=== PATIENT | male | born 1980 | race Caucasian/White ===

== ENCOUNTER 2019-07-20 16:53 | Emergency (ER) | payer MEDICAID, SELFPAY ==
[2019-07-20 17:00] VITALS: BP 158/118; RESP 20; TEMP 36.8; O2SAT 98; BMI 28.8
--- NOTE | 2019-07-20 17:09 | PC.NURSE ---
Patient to treatment room.
--- NOTE | 2019-07-20 17:10 | ED_ITS ---
Entered by Catherine Samuel, acting as scribe for Jul 20, 2019 16:53 HPI - Seizure General: Chief Complaint: Seizure Stated Complaint: needs seizure meds Time Seen by Provider: 07/20/19 17:10 Source: patient Mode of arrival: ambulatory Limitations: no limitations History of Present Illness: HPI Narrative: 38 yo Male presents to ED with complaint of seizure. Pt states that he has been out of his Keppra for 5 days. Pt states that he was getting a pizza across the parking lot when he went out . Pt's family member states that the patient was out for about 1 minute but it took him a bit to come back around. Pt states that he threw up when he got to the ED. Pt is requesting to have prescriptions for his home meds for a few days so that he will have them until he can get home. complaint: seizure Onset (ago): hour(s) (Just prior to arrival) Description of Episode: loss of consciousness Duration of episode: 1 -: minutes(s) Witnessed: Yes - by Bystander Trauma: No Seizure History: Yes Place: Outdoors Possible Precipitating Event: medication (unable to get home to his medications) Associated symptoms: Reports confusion Treatments prior to arrival: none Review of Systems General: Reports: 10 or more systems reviewed and unremarkable except in HPI and below Neuro: Reports: confusion and seizure-like activity PFS ED PFSH: Statuses (acute, chronic, etc) shown below reflect problem list status as previously entered and may not be historically accurate Medical History (Updated 07/20/19 @ 17:52 by Nilson Sims MD, [facility] [place] Alcoholism (Acute) Anxiety (Acute) Bipolar disorder (Acute) Chronic back pain (Acute) Depression (Acute) GI bleed (Acute) Hepatitis (Acute) IBS (irritable bowel syndrome) (Acute) Intermittent explosive disorder (Acute) PTSD (post-traumatic stress disorder) (Acute) Rectal bleed (Acute) Seizure disorder (Acute) Substance abuse (Acute) Suicidal ideation (Acute) Suicide attempt (Acute) Surgical History (Updated 07/20/19 @ 17:16 by Catherine Samuel) History of back surgery (Acute) Social History Smoking and tobacco status: current every day smoker Physical Exam Const: COMMON NORMALS: no apparent distress, average body habitus, oriented x3, no limitations, healthy appearing, alert and well nourished HENMT: COMMON NORMALS: normocephalic, head/scalp atraumatic, hearing grossly normal bilaterally, external ears normal, EAC's normal, TM's normal bilaterally, external nose normal, nasal mucous membranes and turbinates normal, moist oral mucous membranes, oropharynx normal, dentition normal and gingiva normal HEAD & SCALP: normocephalic and atraumatic NOSE: external nose normal and nasal mucous membranes and turbinates normal EXTERNAL EAR: Yes external ears normal EXTERNAL AUDITORY CANAL: EAC's normal TYMPANIC MEMBRANE: TM's normal bilaterally Eye: COMMON NORMALS: PERRL, EOMs intact bilaterally, conjunctivae normal, no scleral icterus, no papilledema, normal visual [place] by confrontation and fundi normal bilaterally CONJUNCTIVA: Yes conjunctivae normal PUPIL: Yes PERRL DIRECT OPHTHALMOSCOPY: Yes no papilledema and Yes fundi normal bilaterally Neck/C-Spine: COMMON NORMALS: full ROM, supple, no meningeal signs, no JVD and no carotid bruits Chest: COMMONS NORMALS: inspection of chest normal and palpation of chest normal Resp: COMMON NORMALS: normal respiratory effort, no retractions, no use of accessory muscles, clear to auscultation bilaterally and percussion normal AUSCULTATION: clear to auscultation bilaterally PERCUSSION: percussion normal Cardio: COMMON NORMALS: no JVD, regular rate, regular rhythm, S1 normal heart sound, S2 normal heart sound, no gallops, no clicks, no murmurs, no rub and peripheral pulses 2+ throughout RATE: regular rate RHYTHM: regular rhythm HEART SOUNDS: S1 normal and S2 normal PERIPHERAL PULSES: pulses 2+ throughout GI: COMMON NORMALS: normal to inspection, nondistended, normoactive bowel sounds, soft to palpation, non-tender, no hepatosplenomegaly, no masses and no bruits PALPATION: Yes soft and Yes no hepatosplenomegaly : COMMON NORMALS: Yes no CVA tenderness BLADDER/KIDNEY EXAM: Yes no CVA tenderness Back/Pelvis: COMMON NORMALS: no CVA tenderness Extremity: COMMON NORMALS: normal to inspection, full ROM, normal capillary refill, no joint enlargement, no clubbing, cyanosis or edema, no calf tenderness and no pedal edema Neuro: COMMON NORMALS: oriented x3 SENSORIUM/ORIENTATION: Yes alert MENINGEAL SIGNS: Yes no meningeal signs Skin: COMMON NORMALS: no rashes or lesions noted, no wounds, skin turgor normal, no jaundice, no petechiae and no mottling GENERAL SKIN EXAM: no rashes or lesions noted and turgor normal Course Vital Signs: Vital signs: Vital Signs Temperature 98.2 F 07/20/19 17:00 Respiratory Rate 20 H 07/20/19 17:00 Blood Pressure 158/118 07/20/19 17:00 Pulse Oximetry 98 07/20/19 17:00 MDM - Seizure MDM Narrative: Medical decision making narrative: 38-year-old male patient with a history of seizures who has been out of his antiepileptic, Keppra, for 5 days. Today while getting the pizza he had a generalized tonic-clonic seizure and was postictal. The patient is back to his baseline now. I refilled his medications and discharge him home. He is to follow-up with his primary care provider as soon as he can get in. Examination was unremarkable here in the ED. Differential Diagnosis: Seizure Differential Diagnosis: Likely intractable seizure disorder, focal seizure, generalized seizure, epileptic seizure and status epilepticus Medical Records: Attestation: I reviewed the patient's medical records. Discharge Plan Discharge Patient Disposition: Home, Self-Care Clinical Impression: Epileptic seizure Qualifiers: Epilepsy type: other generalized Intractability: not intractable Status epilepticus: without status epilepticus Qualified Code(s): G40.409 - Other generalized epilepsy and epileptic syndromes, not intractable, without status epilepticus Condition: Stable Prescriptions: Continued clonidine HCl 0.1 mg tablet 0.1 mg PO TID Qty: 15 RF: 0 quetiapine 300 mg tablet 300 mg PO BEDTIME Qty: 5 RF: 0 Xanax 0.25 mg Tablet 0.25 mg PO BID PRN (Reason: UNKNOWN) Qty: 10 RF: 0 citalopram 20 mg tablet 20 mg PO DAILY Qty: 5 RF: 0 levetiracetam 500 mg tablet extended release 24 hr 500 mg PO BID Qty: 10 RF: 0 Discharge Orders: Discharge Order (Routine); Ordered 07/20/19 Ordered By: Nilson Sims Referrals: Michael Sutherland FNP [Primary Care Provider] - 1-3 days Activity Restrictions/Additional Instructions: Return for any new or worsening symptoms. Take your medications as prescribed. Follow-up with your primary care provider within 3 days. Coding Level of Care Code ED Labor Trainer for Chg Fwd Exam Problem Focused The documentation recorded by the Lizzie becker Carmen, accurately reflects the service I personally performed and the decisions made by , Nilson Sims MD, [facility] [place] Jul 20, 2019 16:53
--- NOTE | 2019-07-20 17:16 | PC.NURSE ---
Hurts all over
--- NOTE | 2019-07-20 17:57 | ED_ITS ---
HPI - Seizure General: Chief Complaint: Seizure Stated Complaint: needs seizure meds Time Seen by Provider: 07/20/19 17:10 Source: patient Mode of arrival: ambulatory Limitations: no limitations History of Present Illness: Trauma: No Seizure History: Yes Place: Outdoors Treatments prior to arrival: none PFSH ED PFSH: Statuses (acute, chronic, etc) shown below reflect problem list status as previously entered and may not be historically accurate Medical History (Updated 07/20/19 @ 17:52 by Nilson Sims MD, [facility] [place]) Alcoholism (Acute) Anxiety (Acute) Bipolar disorder (Acute) Chronic back pain (Acute) Depression (Acute) GI bleed (Acute) Hepatitis (Acute) IBS (irritable bowel syndrome) (Acute) Intermittent explosive disorder (Acute) PTSD (post-traumatic stress disorder) (Acute) Rectal bleed (Acute) Seizure disorder (Acute) Substance abuse (Acute) Suicidal ideation (Acute) Suicide attempt (Acute) Surgical History (Updated 07/20/19 @ 17:16 by Catherine Samuel) History of back surgery (Acute) Social History Smoking and tobacco status: current every day smoker Course Vital Signs: Vital signs: Vital Signs Temperature 98.2 F 07/20/19 17:00 Pulse Rate 115 H 07/20/19 18:02 Respiratory Rate 15 07/20/19 18:02 Blood Pressure 150/93 07/20/19 18:02 Pulse Oximetry 97 07/20/19 18:02 Discharge Plan Discharge Patient Disposition: Home, Self-Care Clinical Impression: Epileptic seizure Qualifiers: Epilepsy type: other generalized Intractability: not intractable Status epilepticus: without status epilepticus Qualified Code(s): G40.409 - Other generalized epilepsy and epileptic syndromes, not intractable, without status epilepticus Condition: Stable Prescriptions: Continued clonidine HCl 0.1 mg tablet 0.1 mg PO TID Qty: 15 RF: 0 quetiapine 300 mg tablet 300 mg PO BEDTIME Qty: 5 RF: 0 Xanax 0.25 mg Tablet 0.25 mg PO BID PRN (Reason: UNKNOWN) Qty: 10 RF: 0 citalopram 20 mg tablet 20 mg PO DAILY Qty: 5 RF: 0 levetiracetam 500 mg tablet extended release 24 hr 500 mg PO BID Qty: 10 RF: 0 Discharge Orders: Discharge Order (Routine); Ordered 07/20/19 Ordered By: Nilson Sims Referrals: Michael Sutherland RICE FIELD WORKER [Primary Care Provider] - 1-3 days Activity Restrictions/Additional Instructions: Return for any new or worsening symptoms. Take your medications as prescribed. Follow-up with your primary care provider within 3 days. Discharge Date/Time: 07/20/19 18:02 Coding Level of Care Code ED Customer Sales Service Manager for Edmond Hwang
[2019-07-20 18:02] VITALS: BP 150/93; PULSE 115; RESP 15; O2SAT 97
== END 2019-07-20 18:02 | disposition home or self-care (01) ==
PROVIDERS: Emergency Provider Family Medicine; PCP Nurse Practitioner Family
DX: G40.409 Other generalized epilepsy and epileptic syndromes, not intractable, without status epilepticus (principal); F17.210 Nicotine dependence, cigarettes, uncomplicated
CPT/HCPCS: 99283

== ENCOUNTER 2019-08-21 17:53 | Emergency (ER) | payer MEDICAID, SELFPAY | END 2019-08-21 20:16 | disposition admitted as inpatient to this hospital (09) | LOC: ER 08-28 12:59 | PROVIDERS: Emergency Provider Emergency Medicine; PCP Nurse Practitioner Family | DX: F30.9 Manic episode, unspecified (principal); F43.10 Post-traumatic stress disorder, unspecified; F17.210 Nicotine dependence, cigarettes, uncomplicated | CPT/HCPCS: 80053; 80307; 85025; 96372; 99284; 99285 ==

== ENCOUNTER 2019-08-21 17:53 | Inpatient (IN) | payer MEDICAID, SELFPAY ==
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
[2019-08-21 18:01] VITALS: BP 140/80; PULSE 71; RESP 15; TEMP 36.7; O2SAT 97; BMI 29.1
[2019-08-21 18:55] LABS: Basophils % 0.5 %; Eosinophils # 0.2 10^3/uL (0.0-0.8); Eosinophils % 2.8 %; Hematocrit 42.1 % (42.0-52.0); Hemoglobin 13.9 g/dL (11.7-16.6); Lymphocytes # 1.9 10^3/uL (0.8-4.8); Lymphocytes % 28.5 %; Mean Corpuscular Hemoglobin 30.5 pg (28.0-34.0); Mean Corpuscular Volume 92.5 fL (80-94); Mean Platelet Volume 10.1 fL (7.4-10.4); Monocytes # 0.6 10^3/uL (0.2-0.9); Monocytes % 9.6 %; Neutrophils # 3.7 10^3/uL (1.8-7.7); Neutrophils % 57.5 %; Nucleated Red Blood Cells % 0 %; Platelet Count 201 10^3/cmm (130-400); Red Blood Count 4.55 10^6/uL (4.1-5.3); Red Cell Distribution Width 13.2 % (12.1-15.1); White Blood Count 6.5 10^3/uL (4.0-10.0)
--- NOTE | 2019-08-21 18:59 | PC.NURSE ---
Report received from HÉCTOR Judd and care transferred to HÉCTOR Garcia
[2019-08-21 19:06] VITALS: BP 140/91; PULSE 119; RESP 14; O2SAT 97
[2019-08-21 19:06] LABS: Amphetamines Screen Urine Negative (Negative); Barbiturates Screen Urine Negative (Negative); Benzodiazepines Screen Urine Positive (Negative); Cocaine Screen Urine Negative (Negative); Opiate Screen Urine Negative (Negative); PCP Screen Urine Negative (Negative); THC Screen Urine Negative (Negative)
[2019-08-21 19:07] LABS: Alanine Aminotransferase 82 U/L (0-41); Albumin Level 4.2 g/dL (3.5-5.2); Alkaline Phosphatase 77 IU/L (40-130); Anion Gap 14.2 (5-19); Aspartate Amino Transferase 34 U/L (0-40); Blood Urea Nitrogen 11 mg/dL (6-20); Calcium 9.7 mg/dL (8.5-10.5); Carbon Dioxide 24 mmol/L (22-29); Chloride 107 mmol/L (98-107); Globulin 2.8 g/dL (1.3-4.6); Glucose 105 mg/dL (65-115); Potassium 4.2 mmol/L (3.5-5.1); Sodium 141 mmol/L (136-145); Total Bilirubin 0.2 mg/dL (0.15-1.2)
[2019-08-21 19:12] LABS: Acetaminophen < 5.0 ug/mL (10-30); Alcohol Level < 10 mg/dL (0-10); Salicylate < 0.3 mg/dL (3-10)
--- NOTE | 2019-08-21 19:12 | PC.NURSE ---
Patient states he feels anxious and that he would like something for that, HCP notified by nurse.
[2019-08-21 19:20] LABS: Slide Review Slide Review Perform
[2019-08-21] MEDS: LORazepam 1 mg Tablet PO (19:25)
[2019-08-21 20:15] VITALS: BP 159/104; PULSE 118; RESP 18; TEMP 37.1; O2SAT 96
[2019-08-21 21:51] VITALS: BP 151/88; PULSE 120; RESP 22; TEMP 36.7; O2SAT 97
--- NOTE | 2019-08-21 22:07 | PC.NURSE ---
MED RECONCILIATION MT DR. GARCIA WE CAN START CLONIDINE AND SEROQUEL BUT NEED TO WAIT UNTIL TOMORROW TO START ATIVAN AND KEPPRA.
[2019-08-21 22:12] VITALS: BP 151/88
[2019-08-21] MEDS: cloNIDine 0.1 mg Tablet PO (22:12)
[2019-08-21] MEDS: quetiapine 300 mg Tablet PO (22:13)
[2019-08-22 06:00] VITALS: BP 133/87; PULSE 95; RESP 15; TEMP 36.6; O2SAT 97
[2019-08-22 08:15] VITALS: BP 136/105
[2019-08-22] MEDS: cloNIDine 0.1 mg Tablet PO ×3 (08:15→20:30)
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
[2019-08-22] MEDS: nicotine 2 mg Gum BUCCAL (08:53)
[2019-08-22] MEDS: loperamide 2 mg Capsule PO (09:18)
[2019-08-22] MEDS: buprenorphine-naloxone 4-1 mg Film 1 EACH SUBLINGUAL ×2 (09:29→17:56)
[2019-08-22] MEDS: levETIRAcetam 500 mg Tablet 250 MG PO ×2 (09:29→17:55)
[2019-08-22 14:00] VITALS: BP 140/97; PULSE 105; RESP 19; TEMP 36.9; O2SAT 97
[2019-08-22 14:33] VITALS: BP 140/97
[2019-08-22 20:09] VITALS: BP 146/81; PULSE 105; RESP 18; TEMP 36.6; O2SAT 96
[2019-08-22 20:30] VITALS: BP 146/81
[2019-08-22] MEDS: quetiapine 300 mg Tablet PO (21:40)
[2019-08-22] MEDS: ondansetron 4 MG Tablet PO (23:38)
[2019-08-23 06:00] VITALS: BP 131/79; PULSE 92; RESP 16; TEMP 37; O2SAT 97
[2019-08-23] MEDS: cloNIDine 0.1 mg Tablet PO ×2 (08:30→21:31)
[2019-08-23] MEDS: levETIRAcetam 500 mg Tablet 250 MG PO ×2 (08:30→17:39)
[2019-08-23] MEDS: buprenorphine-naloxone 4-1 mg Film 1 EACH SUBLINGUAL ×2 (08:31→17:40)
--- NOTE | 2019-08-23 08:40 | P.PN_ITS ---
Subjective NPU Medications: Medication Review Details: Patient reports that he is responding well to current medication treatment. It is his intent to stay here until Sunday morning and then be discharged to outpatient rehabilitation at [facility]. Mental Status Exam MSE Comments: Discharge Mental Status Exam: Appearance: hygiene is good; no gross neurological deficits., gait is unremarkable; AIMS=0 Speech: Speech is of normal rate and rhythm and easily understood. Thought processes: Thought processes are abstract. Judgment is adequate for safety. Associations: intact Psychotic processes: There is no indication of guarding or paranoia. There is no attention to the internal stimuli. Auditory and visual hallucinations are denied. Judgment: Insight is fair. Problem solving skills are adequate for safety. Orientation: The patient is oriented to person, place time and situation. Memory: no deficits noted in immediate, intermediate, or remote spheres. Attention: The patient is alert and interpersonally engaged. Language: Verbalizations are coherent. Fund of knowledge: Fund of knowledge is adequate. Affect/Mood: Affect is consistent with a euthymic mood. denied suicidal ideation Affective range is appropriate. Psychosis: perception unimpaired except through cognitive distortion; reality testing intact. Cognition: Patient Appearance: Disheveled/Poor Hygiene Level of Consciousness: Awake, Alert, Appropriate and Follows Commands Patient Cognition Impaired: No Ability to Follow Directions: Good Patient Orientation (long list): Person, Place and Time Comprehension Ability: No Impairment Hallucination Type: None Delusion Description: Not Present Thought Process: Appropriate Affect: Affect Description: Anxious Behavior: Patient Behavior: Somatic Speech Pattern: Clear Vitals/I&O/Wt Last Vital Signs Temp 98.6 F 08/23/19 06:00 Pulse 92 08/23/19 06:00 Resp 16 08/23/19 06:00 BP 131/79 08/23/19 06:00 Pulse Ox 97 08/23/19 06:00 Weight last 48 hrs Weight 114.305 kg Data NPU : 08/21/19 18:48 08/21/19 18:48 A&P Additional A&P Information Due to the psychiatric conditions and treatment listed in the Assessment and Plan - the patient requires continued hospitalization. Will provide a safe and therapeutic environment for patient.. Will continue inpatient treatment to allow for medication adjustment and monitoring. Will continue q15 min safety checks. Hospital day #3:Will continue current medications and monitor for medication side effects. Suboxone 10/07 twice a day, Seroquel 300 mg at bedtime, Keppra 250 mg twice a day, and clonidine 0.1 mg 3 times a day. Monitor patient's mood, sleep, appetite, and behavior closely. Encourage patient to participate in individual and group therapeutic sessions on the [place]. Estimated length of stay 5 days The expected benefits and potential side effects of patient's psychiatric medications were discussed with the patient. The patient understands and consents to treatment. CRITERIA FOR DISCHARGE: stable on medications and no longer an imminent threat to self or others Involuntary Hold Information 96 Hour Hold: 96 Hour Involuntary Admission: Yes 96 Hour Hold Ending Date: 08/28/19 96 Hour Hold Ending Time: 18:55 Attestations NPU Medical Necessity Statement*: Patient remained in the hospital another tonight so that he can be facilitated in the outpatient rehabilitation Coding Level of Care Code Acute Transportation Security Officer for Edmond Hwang
[2019-08-23 13:11] VITALS: BP 137/82
[2019-08-23] MEDS: acetaminophen 325 mg Tablet 650 MG PO (20:08)
[2019-08-23 21:04] VITALS: BP 148/96; PULSE 98; RESP 24; TEMP 37; O2SAT 93
[2019-08-23] MEDS: quetiapine 300 mg Tablet 600 MG PO (21:32)
[2019-08-24] MEDS: acetaminophen 325 mg Tablet 650 MG PO ×2 (02:00→23:01)
[2019-08-24 06:00] VITALS: BP 120/75; PULSE 95; RESP 20; TEMP 36.9; O2SAT 94
[2019-08-24] MEDS: levETIRAcetam 500 mg Tablet 250 MG PO ×2 (08:47→16:49)
[2019-08-24] MEDS: buprenorphine-naloxone 4-1 mg Film 1 EACH SUBLINGUAL ×2 (08:47→16:49)
[2019-08-24 13:54] VITALS: BP 135/89; PULSE 87; RESP 18; TEMP 36.8; O2SAT 93
--- NOTE | 2019-08-24 15:19 | PM.NPN ---
Subjective NPU Medications: Medication Review Details: Patient reports that he is responding well to current medication treatment. He has a great number of questions regaridng the rehab program he wants. All of the questions are reasonable but his inability to let things go indicate his degree of perplexity. His mohter is also [employer] and we discussed his pattern of moods. She describes him as having elevated episodes and low episodes. But none reached the level of bipolar karla. He does not go days without sleep. He is not impulsive when he is elevated. He does become violent during hsi down phases which would be consistent with clinical depression. On the other hand, she is unable to describe these in absence of h is substance use. Family psychiattric history is negative for mood disorders. Mental Status Exam MSE Comments: Mental Status Exam: Appearance: hygiene is good; no gross neurological deficits., gait is unremarkable; AIMS=0 Speech: Speech is of normal rate and rhythm and easily understood. Thought processes: Thought processes are abstract. Judgment is adequate for safety. Associations: intact Psychotic processes: There is no indication of guarding or paranoia. There is no attention to the internal stimuli. Auditory and visual hallucinations are denied. Judgment: Insight is fair. Problem solving skills are adequate for safety. Orientation: The patient is oriented to person, place time and situation. Memory: no deficits noted in immediate, intermediate, or remote spheres. Attention: The patient is alert and interpersonally engaged. Language: Verbalizations are coherent. Fund of knowledge: Fund of knowledge is adequate. Affect/Mood: Affect is consistent with a euthymic mood. denied suicidal ideation Affective range is appropriate. Psychosis: perception unimpaired except through cognitive distortion; reality testing intact. Cognition: Patient Appearance: Disheveled/Poor Hygiene Level of Consciousness: Awake, Alert, Appropriate and Follows Commands Patient Cognition Impaired: No Ability to Follow Directions: Good Patient Orientation (long list): Person, Place and Time Comprehension Ability: No Impairment Hallucination Type: None Delusion Description: Not Present Thought Process: Appropriate and Flight of Ideas Affect: Affect Description: Appropriate Behavior: Patient Behavior: Appropriate Speech Pattern: Appropriate and Clear Vitals/I&O/Wt Last Vital Signs Temp 98.3 F 08/24/19 13:54 Pulse 87 08/24/19 13:54 Resp 18 08/24/19 13:54 BP 135/89 08/24/19 13:54 Pulse Ox 93 08/24/19 13:54 Weight last 48 hrs Weight 113.852 kg Data NPU : 08/21/19 18:48 08/21/19 18:48 A&P Additional A&P Information Due to the psychiatric conditions and treatment listed in the Assessment and Plan - the patient requires continued hospitalization. Will provide a safe and therapeutic environment for patient.. Will continue inpatient treatment to allow for medication adjustment and monitoring. Will continue q15 min safety checks. Hospital day #3:Will continue current medications and monitor for medication side effects. Suboxone 4/1 twice a day, Seroquel 300 mg at bedtime, Keppra 250 mg twice a day, and clonidine 0.1 mg 3 times a day. HD#4: increase Seroquel to 600 mg at bedtime and reduce clonidine. HD#5: add Celexa 20 mg at bedtime and change clonidine to 0.2 mg at bedtime Monitor patient's mood, sleep, appetite, and behavior closely. Encourage patient to participate in individual and group therapeutic sessions on the [place]. Estimated length of stay 5 days The expected benefits and potential side effects of patient's psychiatric medications were discussed with the patient. The patient understands and consents to treatment. CRITERIA FOR DISCHARGE: stable on medications and no longer an imminent threat to self or others Involuntary Hold Information 96 Hour Hold: 96 Hour Involuntary Admission: Yes 96 Hour Hold Ending Date: 08/28/19 96 Hour Hold Ending Time: 18:55 Attestations NPU Medical Necessity Statement*: Pt to remain in the hospital 1-2 more nights to facilitate placement Coding Level of Care Code Acute Personal Service Representative for Edmond Hwang
[2019-08-24] MEDS: citalopram 20 mg Tablet PO (20:17)
[2019-08-24] MEDS: quetiapine 300 mg Tablet 600 MG PO (20:17)
[2019-08-24] MEDS: cloNIDine 0.1 mg Tablet 0.2 MG PO (20:18)
[2019-08-24 21:31] VITALS: BP 134/84; PULSE 93; RESP 23; TEMP 36.9; O2SAT 95
[2019-08-25 06:00] VITALS: BP 124/79; PULSE 106; RESP 20; TEMP 36.9; O2SAT 95
[2019-08-25] MEDS: buprenorphine-naloxone 4-1 mg Film 1 EACH SUBLINGUAL (08:16)
[2019-08-25] MEDS: levETIRAcetam 500 mg Tablet 250 MG PO (08:16)
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
[2019-08-25 10:54] VITALS: BP 124/79; PULSE 106; RESP 20; TEMP 36.9; O2SAT 95
[2019-08-25 12:09] VITALS: BP 124/79; PULSE 106; RESP 20; TEMP 36.9; O2SAT 95
[2019-08-25 12:10] VITALS: BP 124/79; PULSE 106; RESP 20; TEMP 36.9; O2SAT 95
== END 2019-08-25 12:08 | disposition home or self-care (01) | DRG 897 ==
LOC: ER 19:32 → NP 19:33
PROVIDERS: Emergency Medicine; Admitting Provider Psychiatry & Neurology Psychiatry; Emergency Provider Emergency Medicine; PCP Nurse Practitioner Family; Visit Provider Psychiatry & Neurology Psychiatry
DX: F11.23 Opioid dependence with withdrawal (principal); F32.5 Major depressive disorder, single episode, in full remission; F60.2 Antisocial personality disorder; G40.909 Epilepsy, unspecified, not intractable, without status epilepticus; G89.29 Other chronic pain; M54.9 Dorsalgia, unspecified; F43.10 Post-traumatic stress disorder, unspecified; Z91.5 Personal history of self-harm; F17.210 Nicotine dependence, cigarettes, uncomplicated
CPT/HCPCS: 12345; 80053; 80307; 85025; 99284; J0573; Q0162

== ENCOUNTER 2019-10-08 04:17 | Emergency (ER) | payer MEDICAID, SELFPAY ==
[2019-10-08] VITALS (9 sets, daily range): BP systolic 152–164; BP diastolic 81–114; PULSE 66–109; RESP 8–25; O2SAT 93–98; BMI 30.4
--- NOTE | 2019-10-08 04:20 | ECG_ITS ---
Measurements Intervals [place] Rate: 104 P: 35 HI: 149 QRS: 16 QRSD: 92 T: 48 QT: 321 QTc: 424 SINUS TACHYCARDIA POOR ANTERIOR R WAVE PROGRESSION Compared to ECG 01/06/2019 00:55:42 No significant changes Electronically Signed On 10-08-2019 9:39:52 CDT by Aretha Xiong M.D. [email or web address]
--- NOTE | 2019-10-08 04:20 | XR_ITS ---
WS: [id number] PORTABLE CHEST HISTORY: cough COMPARISON: 01/06/2019 Lungs are clear and well expanded. No pleural effusion or pneumothorax. Cardiac size: Normal. Mediastinum/Aorta: Normal mediastinum. No osseous abnormality seen. XR/XR chest 1V portable [id number] IMPRESSION: Unremarkable portable chest.
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
[2019-10-08] MEDS: ondansetron 2 mg/ML SDV 2 mL 4 MG IVP (04:37)
[2019-10-08 04:38] LABS: Basophils # 0.1 10^3/uL (0.0-0.1); Basophils % 0.6 %; Eosinophils # 0.1 10^3/uL (0.0-0.8); Eosinophils % 1.2 %; Hematocrit 38.9 % (42.0-52.0); Hemoglobin 12.5 g/dL (11.7-16.6); Lymphocytes # 1.8 10^3/uL (0.8-4.8); Lymphocytes % 15.8 %; Mean Corpuscular HGB Conc 32.1 g/dL (30.0-36.0); Mean Corpuscular Hemoglobin 29.7 pg (28.0-34.0); Mean Corpuscular Volume 92.4 fL (80-94); Mean Platelet Volume 10.1 fL (7.4-10.4); Monocytes # 1.1 10^3/uL (0.2-0.9); Monocytes % 9.6 %; Neutrophils # 8.2 10^3/uL (1.8-7.7); Neutrophils % 72.5 %; Nucleated Red Blood Cells % 0 %; Platelet Count 193 10^3/cmm (130-400); Red Blood Count 4.21 10^6/uL (4.1-5.3); Red Cell Distribution Width 13.4 % (12.1-15.1); White Blood Count 11.3 10^3/uL (4.0-10.0)
[2019-10-08] MEDS: sodium chloride 0.9% 1,000 ML 999 ML IV ×2 (04:38→06:09)
[2019-10-08] MEDS: haloperidol inj 5 mg/mL INJ 1 mL IVP (04:38)
[2019-10-08 04:53] LABS: Alanine Aminotransferase 32 U/L (0-41); Albumin Level 3.5 g/dL (3.5-5.2); Alkaline Phosphatase 77 IU/L (40-130); Anion Gap 11.9 (5-19); Aspartate Amino Transferase 19 U/L (0-40); Blood Urea Nitrogen 11 mg/dL (6-20); Calcium 6.7 mg/dL (8.5-10.5); Carbon Dioxide 19 mmol/L (22-29); Chloride 117 mmol/L (98-107); Globulin 2.1 g/dL (1.3-4.6); Glomerular Filtration Rate 108.2 mL/min (90-130); Glucose 77 mg/dL (65-115); Magnesium 1.3 mg/dL (1.7-2.3); Osmolality Calculated 295 mOsm/kg (285-295); Sodium 145 mmol/L (136-145); Total Bilirubin 0.2 mg/dL (0.15-1.2); Total Protein 5.6 g/dL (6.6-8.7)
[2019-10-08] MEDS: calcium gluconate 0.1 gm/mL 10% SDV 10mL 1 GM IVP (05:01)
[2019-10-08] MEDS: magnesium sulfate premix 2 GM/50 ML PIGGYBACK IV (05:03)
[2019-10-08 05:05] LABS: Potassium 2.9 mmol/L (3.5-5.1)
[2019-10-08 05:06] LABS: Alcohol Level < 10 mg/dL (0-10); Creatine Phosphokinase 403 U/L (39-308)
--- NOTE | 2019-10-08 07:04 | PC.NURSE ---
Received report from Suzie. Pt is sleeping.
[2019-10-08 07:39] LABS: Add Urine Culture? No; Bacteria Urine TRACE; Bilirubin Urine Neg (NEGATIVE); Blood Urine 2+ (Negative); Glucose Urine UA Norm (Normal); Ketones Urine Negative (Negative); Leukocyte Esterase Urine Negative (Negative); Nitrate Urine Negative (Negative); Protein Urine Neg (Negative); RBC Urine 0-4 /hpf (0-2); Specific Gravity, Urine 1.025 (1.005-1.030); Squamous Epithelial Cell Urine 0-4 (0-5); Urine Appearance Clear (CLEAR); Urine Color Yellow (Yellow); Urobilinogen Urine Norm (Negative)
[2019-10-08 07:44] LABS: Amphetamines Screen Urine Positive (Negative); Barbiturates Screen Urine Negative (Negative); Benzodiazepines Screen Urine Positive (Negative); Cocaine Screen Urine Negative (Negative); Opiate Screen Urine Negative (Negative); PCP Screen Urine Negative (Negative); THC Screen Urine Negative (Negative)
== END 2019-10-08 07:52 | disposition home or self-care (01) ==
PROVIDERS: Emergency Medicine; Emergency Provider Family Medicine; PCP Nurse Practitioner Family
DX: E87.6 Hypokalemia (principal); E83.42 Hypomagnesemia; M62.82 Rhabdomyolysis; F11.90 Opioid use, unspecified, uncomplicated; F17.200 Nicotine dependence, unspecified, uncomplicated
CPT/HCPCS: 12345; 71045; 80053; 80306; 80307; 81001; 82550; 83735; 85025; 93005; 96360; 96365; 96367; 96375; 99284; 99285; J0610; J1630; J2405; J3475; J3480; J7030

== ENCOUNTER 2019-10-09 13:12 | Emergency (ER) | payer MEDICAID, SELFPAY | END 2019-10-09 17:45 | disposition admitted as inpatient to this hospital (09) | LOC: ER 10-27 10:23 | PROVIDERS: Emergency Provider Family Medicine | DX: G40.89 Other seizures (principal); R45.851 Suicidal ideations; R45.850 Homicidal ideations | CPT/HCPCS: 36415; 70450; 80053; 80306; 80307; 81003; 85025; 96372; 96374; 99283; 99285; J2060; J3486 ==

== ENCOUNTER 2019-10-09 13:27 | Inpatient (IN) | payer MEDICAID, SELFPAY ==
--- NOTE | 2019-10-09 13:19 | W.ED.GENADLT ---
HPI - General Adult General: Chief complaint: Seizure Stated complaint: ams, poss seizure Time Seen by Provider: 10/09/19 13:18 History of Present Illness: HPI narrative: 39-year-old male presents to the emergency room stating he had fallen and had a seizure. The report was he hit his forehead on a bumper of a car and then fell back and hit his head on the cement he is not had any vomiting he is having wild mood swings while in the emergency room goes from being nearly lethargic to being aggressive and threatening to the staff. He made several comments about killing himself and then comments about killing others including directly threatening both security and nursing staff as well as myself. He had fallen just prior to arrival in the emergency room brought in by EMS. Associated symptoms: Reports headache(s); Deny chest pain, dyspnea, malaise, nausea, rash or vomiting Review of Systems General: Reports: other (Somewhat limited due to patient's behavior) Const: Denies: fever, chills, body aches, change in appetite, fatigue or malaise ENMT: Denies: throat pain, ear pain, nasal discharge or nasal congestion Card: Denies: chest pain, edema, shortness of breath on exertion or shortness of breath when lying down Resp: Denies: shortness of breath, productive cough or non-productive cough GI: Denies: abdominal pain, nausea, vomiting, vomiting blood, coffee grounds in vomit, diarrhea, constipation, bloating, blood in stool or black tarry stool : Denies: flank pain, painful urination, urinary frequency or urinary urgency Skin/Breast: Denies: rash or itching Neuro: Reports: headache and seizure-like activity Psych: Reports: anxiety, mood swings, irritability, paranoia, suicidal ideation and homicidal ideation [facility] ED PFSH: Social History Smoking and tobacco status: never smoked Current gender identity: Male Physical Exam Const: COMMON NORMALS: no apparent distress GENERAL APPEARANCE: cooperative and comfortable ORIENTATION/CONSCIOUSNESS: Yes awake, Yes oriented to person, Yes oriented to place and Yes oriented to time HENMT: COMMON NORMALS: normocephalic, head/scalp atraumatic, hearing grossly normal bilaterally, external ears normal, EAC's normal, TM's normal bilaterally, nasal mucous membranes and turbinates normal, moist oral mucous membranes and oropharynx normal HEAD & SCALP: normocephalic and atraumatic NOSE: nasal mucous membranes and turbinates normal EXTERNAL EAR: Yes external ears normal EXTERNAL AUDITORY CANAL: EAC's normal TYMPANIC MEMBRANE: TM's normal bilaterally Eye: COMMON NORMALS: PERRL, EOMs intact bilaterally, conjunctivae normal and no scleral icterus CONJUNCTIVA: Yes conjunctivae normal PUPIL: Yes PERRL Neck/C-Spine: COMMON NORMALS: full ROM, no lymphadenopathy, supple and no JVD Lymph: LYMPHATIC: no lymphadenopathy noted and no lymphedema noted Resp: COMMON NORMALS: normal respiratory effort, no retractions, no use of accessory muscles and clear to auscultation bilaterally AUSCULTATION: clear to auscultation bilaterally Cardio: COMMON NORMALS: no JVD, regular rate, regular rhythm and no murmurs RATE: regular rate RHYTHM: regular rhythm GI: COMMON NORMALS: soft to palpation and no hepatosplenomegaly AUSCULTATION: Yes normoactive bowel sounds PALPATION: Yes soft, No tender, No guarding and Yes no hepatosplenomegaly Extremity: COMMON NORMALS: normal to inspection, normal capillary refill, no clubbing, cyanosis or edema, no calf tenderness and no pedal edema Neuro: SENSORIUM/ORIENTATION: Yes oriented to person, Yes oriented to place and Yes oriented to time Skin: COMMON NORMALS: no rashes or lesions noted GENERAL SKIN EXAM: no rashes or lesions noted Course Vital Signs: Vital signs: Vital Signs Temperature 97.5 F L 10/10/19 06:00 Pulse Rate 101 H 10/10/19 06:00 Respiratory Rate 21 H 10/10/19 06:00 Blood Pressure 134/87 10/10/19 06:00 Pulse Oximetry 97 10/10/19 06:00 MDM - General Adult MDM Narrative: Medical decision making narrative: Patient was placed on a 96-hour hold due to his threatening to harm himself and others. CT of his head is negative remainder of his labs are unremarkable part of the problem is he had been started on Suboxone and is having a difficult time getting it Dr. Erwin came and seen the patient in the department and will admit him to psychiatry. Lab Data: Labs: Lab Results 10/09/19 10/09/19 10/09/19 Range/Units 12:09 12:09 14:14 WBC 8.5 (4.0-10.0) 10^3/ uL RBC 5.21 (4.1-5.3) 10^6/u L Hgb 15.8 (11.7-16.6) g/dL Hct 47.5 (42.0-52.0) % MCV 91.2 (80-94) fL MCH 30.3 (28.0-34.0) pg MCHC 33.3 (30.0-36.0) g/dL RDW 13.3 (12.1-15.1) % Plt Count 226 (130-400) 10^3/c mm MPV 10.2 (7.4-10.4) fL Neut % (Auto) 65.5 % Lymph % (Auto) 23.8 % [place] % (Auto) 5.3 % Eos % (Auto) 4.4 % Baso % (Auto) 0.5 % Neut # (Auto) 5.6 (1.8-7.7) 10^3/u L Lymph # (Auto) 2.0 (0.8-4.8) 10^3/u L [place] # (Auto) 0.5 (0.2-0.9) 10^3/u L Eos # (Auto) 0.4 (0.0-0.8) 10^3/u L Baso # (Auto) 0.0 (0.0-0.1) 10^3/u L Nucleated RBC % (a uto) 0 % Nucleated RBCs # 0.0 /100WBC Sodium 142 (136-145) mmol/L Potassium 4.5 (3.5-5.1) mmol/L Chloride 107 (98-107) mmol/L Carbon Dioxide 21 L (22-29) mmol/L Anion Gap 18.5 (5-19) BUN 9 (6-20) mg/dL Creatinine 1.0 (0.7-1.2) mg/dL GFR Calculation 83.6 L (90-130) mL/min Glucose 147 H (65-115) mg/dL Calculated Osmolal ity 293 (285-295) mOsm/k g Calcium 9.3 (8.5-10.5) mg/dL Total Bilirubin 0.2 (0.15-1.2) mg/dL AST 26 (0-40) U/L ALT 36 (0-41) U/L Alkaline Phosphata se 108 (40-130) IU/L Total Protein 7.5 (6.6-8.7) g/dL Albumin 4.6 (3.5-5.2) g/dL Globulin 2.9 (1.3-4.6) g/dL Urine Color (Yellow) Urine Appearance (CLEAR) Urine pH (5-7) Ur Specific Gravit y (1.005-1.030) Urine Protein (Negative) Urine Glucose (UA) (Normal) Urine Ketones (Negative) Urine Blood (Negative) Urine Nitrate (Negative) Urine Bilirubin (NEGATIVE) Urine Urobilinogen (Negative) mg/dL Ur Leukocyte La ase (Negative) Salicylates < 0.3 L (3-10) mg/dL Urine Opiates Scre en Negative (Negative) ng/mL Acetaminophen < 5.0 L (10-30) ug/mL Ur Barbiturates Sc reen Negative (Negative) ng/mL Ur Phencyclidine S crn Negative (Negative) ng/mL Ur Amphetamines Sc reen Negative (Negative) ng/mL U Benzodiazepines Scrn Positive H (Negative) ng/mL Urine Cocaine Scre en Negative (Negative) ng/mL U Marijuana (THC) Screen Negative (Negative) ng/mL Ethyl Alcohol 161 H (0-10) mg/dL 10/09/19 Range/Units 14:14 WBC (4.0-10.0) 10^3/ uL RBC (4.1-5.3) 10^6/u L Hgb (11.7-16.6) g/dL Hct (42.0-52.0) % MCV (80-94) fL MCH (28.0-34.0) pg MCHC (30.0-36.0) g/dL RDW (12.1-15.1) % Plt Count (130-400) 10^3/c mm MPV (7.4-10.4) fL Neut % (Auto) % Lymph % (Auto) % [place] % (Auto) % Eos % (Auto) % Baso % (Auto) % Neut # (Auto) (1.8-7.7) 10^3/u L Lymph # (Auto) (0.8-4.8) 10^3/u L [place] # (Auto) (0.2-0.9) 10^3/u L Eos # (Auto) (0.0-0.8) 10^3/u L Baso # (Auto) (0.0-0.1) 10^3/u L Nucleated RBC % (a uto) % Nucleated RBCs # /100WBC Sodium (136-145) mmol/L Potassium (3.5-5.1) mmol/L Chloride (98-107) mmol/L Carbon Dioxide (22-29) mmol/L Anion Gap (5-19) BUN (6-20) mg/dL Creatinine (0.7-1.2) mg/dL GFR Calculation (90-130) mL/min Glucose (65-115) mg/dL Calculated Osmolal ity (285-295) mOsm/k g Calcium (8.5-10.5) mg/dL Total Bilirubin (0.15-1.2) mg/dL AST (0-40) U/L ALT (0-41) U/L Alkaline Phosphata se (40-130) IU/L Total Protein (6.6-8.7) g/dL Albumin (3.5-5.2) g/dL Globulin (1.3-4.6) g/dL Urine Color Yellow (Yellow) Urine Appearance Clear (CLEAR) Urine pH 5 (5-7) Ur Specific Gravit y 1.005 (1.005-1.030) Urine Protein Neg (Negative) Urine Glucose (UA) Norm (Normal) Urine Ketones Negative (Negative) Urine Blood Neg (Negative) Urine Nitrate Negative (Negative) Urine Bilirubin Neg (NEGATIVE) Urine Urobilinogen Norm (Negative) mg/dL Ur Leukocyte La ase Negative (Negative) Salicylates (3-10) mg/dL Urine Opiates Scre en (Negative) ng/mL Acetaminophen (10-30) ug/mL Ur Barbiturates Sc reen (Negative) ng/mL Ur Phencyclidine S crn (Negative) ng/mL Ur Amphetamines Sc reen (Negative) ng/mL U Benzodiazepines Scrn (Negative) ng/mL Urine Cocaine Scre en (Negative) ng/mL U Marijuana (THC) Screen (Negative) ng/mL Ethyl Alcohol (0-10) mg/dL Discharge Plan Discharge Patient Disposition: Admitted As Inpatient Admit Provider: Lewis Erwin Clinical Impression: Generalized seizure, Suicidal ideation, Homicidal ideation Condition: Stable Interventions: ED Discharge Assessment Last Done: 10/09/19 17:37 Discharge Date/Time: 10/09/19 17:45 Coding Level of Care Code ED Distribution Accounting Clerk for Edmond Hwang
[2019-10-09 13:27] VITALS: BP 141/89; PULSE 214; RESP 16; TEMP 37; O2SAT 93; BMI 29.3
--- NOTE | 2019-10-09 14:35 | PC.NURSE ---
patient very volatile and unpredictable, code 10 called with a heavy response from the other floors. YUMIKO WHITTINGTON SETTLED PATIENT DOWN AND MEDS GIVEN
[2019-10-09] MEDS: LORazepam 2 mg/mL INJ 1 mL (14:38)
[2019-10-09 15:10] LABS: Amphetamines Screen Urine Negative (Negative); Barbiturates Screen Urine Negative (Negative); Benzodiazepines Screen Urine Positive (Negative); Cocaine Screen Urine Negative (Negative); Opiate Screen Urine Negative (Negative); PCP Screen Urine Negative (Negative); THC Screen Urine Negative (Negative)
--- NOTE | 2019-10-09 15:46 | CTR_ITS ---
PROCEDURE INFORMATION: Exam: CT Head Without Contrast Exam date and time: 10/09/2019 3:54 PM Age: 39 years old Clinical indication: Injury or trauma; Fall TECHNIQUE: Imaging protocol: Computed tomography of the head without contrast. Axial, coronal and sagittal reformatted images were created and reviewed. Total DLP: 629.22 mGy-cm Radiation optimization: All CT scans at this facility use at least one of these dose optimization techniques: automated exposure control; mA and/or kV adjustment per patient size (includes targeted exams where dose is matched to clinical indication); or iterative reconstruction. COMPARISON: CT head wo con* [id number] 01/06/2019 1:32 AM FINDINGS: Brain: No CT evidence of acute intracranial hemorrhage or acute territorial infarction. No significant mass effect or midline shift. Basal cisterns patent. Ventricles: Normal in size and configuration. Bones/joints: No acute osseous abnormality. Sinuses: Minimal ethmoid mucosal thickening. Mastoid air cells: Grossly unremarkable. Soft tissues: Grossly unremarkable. CT/CT head wo con* [id number]: 1[address] No CT evidence of acute intracranial pathology. 2. Additional findings, as above. Radiation Dose CTDIVOL = (mGy): DLP = 629.22 (mGy-cm)
[2019-10-09] MEDS: ziprasidone 20 mg/mL SDV (15:56)
[2019-10-09 16:17] LABS: Basophils % 0.5 %; Eosinophils # 0.4 10^3/uL (0.0-0.8); Eosinophils % 4.4 %; Hematocrit 47.5 % (42.0-52.0); Hemoglobin 15.8 g/dL (11.7-16.6); Lymphocytes % 23.8 %; Mean Corpuscular HGB Conc 33.3 g/dL (30.0-36.0); Mean Corpuscular Hemoglobin 30.3 pg (28.0-34.0); Mean Corpuscular Volume 91.2 fL (80-94); Mean Platelet Volume 10.2 fL (7.4-10.4); Monocytes # 0.5 10^3/uL (0.2-0.9); Monocytes % 5.3 %; Neutrophils # 5.6 10^3/uL (1.8-7.7); Neutrophils % 65.5 %; Nucleated Red Blood Cells % 0 %; Platelet Count 226 10^3/cmm (130-400); Red Blood Count 5.21 10^6/uL (4.1-5.3); Red Cell Distribution Width 13.3 % (12.1-15.1); White Blood Count 8.5 10^3/uL (4.0-10.0)
[2019-10-09 16:36] LABS: Alanine Aminotransferase 36 U/L (0-41); Albumin Level 4.6 g/dL (3.5-5.2); Alcohol Level 161 mg/dL (0-10); Alkaline Phosphatase 108 IU/L (40-130); Anion Gap 18.5 (5-19); Aspartate Amino Transferase 26 U/L (0-40); Blood Urea Nitrogen 9 mg/dL (6-20); Calcium 9.3 mg/dL (8.5-10.5); Carbon Dioxide 21 mmol/L (22-29); Chloride 107 mmol/L (98-107); Globulin 2.9 g/dL (1.3-4.6); Glomerular Filtration Rate 83.6 mL/min (90-130); Glucose 147 mg/dL (65-115); Osmolality Calculated 293 mOsm/kg (285-295); Potassium 4.5 mmol/L (3.5-5.1); Sodium 142 mmol/L (136-145); Total Bilirubin 0.2 mg/dL (0.15-1.2); Total Protein 7.5 g/dL (6.6-8.7)
[2019-10-09] MEDS: nicotine 21 mg Patch 1 PATCH TRANSDERMA (16:36)
[2019-10-09 16:42] LABS: Add Urine Microscopic? NO
[2019-10-09 16:45] LABS: Salicylate < 0.3 mg/dL (3-10)
[2019-10-09 16:46] LABS: Acetaminophen < 5.0 ug/mL (10-30)
[2019-10-09 16:52] LABS: Bilirubin Urine Neg (NEGATIVE); Blood Urine Neg (Negative); Glucose Urine UA Norm (Normal); Ketones Urine Negative (Negative); Leukocyte Esterase Urine Negative (Negative); Nitrate Urine Negative (Negative); Protein Urine Neg (Negative); Specific Gravity, Urine 1.005 (1.005-1.030); Urine Appearance Clear (CLEAR); Urine Color Yellow (Yellow); Urobilinogen Urine Norm (Negative); pH Urine 5 (5-7)
--- NOTE | 2019-10-09 17:35 | PC.NURSE ---
SEE SITTER NOTER FOR PROGRESS NOTES
--- NOTE | 2019-10-09 17:36 | PC.NURSE ---
AFTER [place]OD[place] PATIENT IS SITTING IN ROOM QUIETLY
[2019-10-09 17:37] VITALS: BP 162/109; PULSE 124; RESP 16; O2SAT 96
[2019-10-09 17:56] VITALS: BP 155/116; PULSE 124; RESP 18; TEMP 36.8; O2SAT 93
--- NOTE | 2019-10-09 17:58 | PM.PSYCN ---
Providers/Reason for Consult Consulting Physican/Specialty*: Lewis Erwin M.D. Psychiatry. Reason for Consult*: Evaluation for admission and lethality. Requesting Physcian: Dr. Lenny M.D. Attending Physician: Lewis Erwin MD Psych Consult HPI History of Present Illness Kyle Cartwright is a 39 year old male Kyle presents today after a significantly chaotic presentation to the emergency room wherein he presented with reports that he had fallen and hit his head and had a seizure, and that he was currently postictal. Full evaluation left significant questions as to whether that story was accurate. He initially had endorsed that he wanted to go to the neuropsych unit, however, after some time passed, he reversed position and said he did not want to go to the neuropsych unit. He reported that he was going to get aggressive with one of the security guards and, at one point, a code was called because of how aggressive he was being. I was called in to consult on the case and began discussing his situation. He reported he was struggling with his relationship with his mother and that she was giving him a hard time. He also reported that he was struggling with his recovery because he was on Suboxone and then was not able to get Suboxone, and he is just really feeling like everything has gone the wrong way in his life, and he just does not know if it is worth it. We discussed his issue in getting a Suboxone treatment facility. In fact, I contacted some of the social workers and was just looking at what our options were. He was tearful at times and was somewhat ambivalent about the actual level of lethality that he was feeling. We discussed the risks, benefits, and alternatives of admission versus discharge, and he understood and agreed to proceed as is documented in this note. Below you will find the discharge summary from his last evaluation with Dr. Jeter; within that he noted that there had not been any changes in his psychosocial circumstances. Per his DC summary from August: Hospital Course Discharge Summary Chief complaint: I've been doing heroin off and on for the past 3 years but really heavily for the past month. History of present illness:Kyle Cartwright is a 38 year old male He reports that he has been doing heroin and is ashamed about it. He has not told anybody that revealed one how frequently he was shooting heroin. He says using very heavily in the past month and is in heroin withdrawal at this time. he reports using Clean needles and multiple times a day. He says he has been to a rehabilitation program and was treated successfully with Suboxone. He has not had any heroin in the last 4 days and is currently in heroin withdrawal. He was admitted on the strength of 96 hour affidavit filed by his mother. The patient and his mother apparently have a very close relationship as they live together. Mother states that he is not medically stable. He has been verbally abusive to she and his and stole money from her. He has threatened his ex-girlfriend. Mother makes no mention is heroin. Patient states that he has hit his heroin is his mother is ashamed of his behavior. He says that this is going to bring her heart and that they will have a very difficult time with relationship when she finds out that he has been using. He otherwise denies psychiatric symptoms. He had a friend who from a heroin overdose. He specifically does not want to . He denies any suicidal or homicidal threats. He is not angry at his mother for filing affidavit is embarrassed that he made statements that she says that he made. Diagnoses: Opiate dependence Opiate withdrawal Major Depression ? recurrent, currently in remission Antisocial personality traits Seizure disorder?by history, type unknown Assessment: The patient presents as a 38-year-old man in the throes of heroin addiction and emotional distress over the fact that it is having on his family. The intent at this time is to treat him for opiate withdrawal and assess potential for entry into a rehabilitation program. There is no indication of imminent risk to self or others as evidenced by information in this interview and his past mental health treatment. He will be restarted on previously effective medications and treated for symptoms of opiate withdrawal. Treatment plan: Due to the psychiatric conditions and treatment listed in the Assessment and Plan - the patient requires continued hospitalization. Will provide a safe and therapeutic environment for patient.. Will continue inpatient treatment to allow for medication adjustment and monitoring. Will continue q15 min safety checks. The patient presents a 38-year-old man in the throes of heroin addiction and emotional distress over the fact that it is having on his family. The intent at this time is to treat him for opiate withdrawal and assess potential for entry into a rehabilitation program. There is no indication of imminent risk to self or others as evidenced by information in this interview and his past mental health treatment. He will be restarted on previously effective medications and treated for symptoms of opiate withdrawal. Restart Keppra 250 mg twice a day, Suboxone at 4/1 milligram twice a day, clonidine 0.1 mg 3 times a day, and Seroquel 300 mg at bedtime. Hospital day #3:Will continue current medications and monitor for medication side effects. Suboxone 4/1 twice a day, Seroquel 300 mg at bedtime, Keppra 250 mg twice a day, and clonidine 0.1 mg 3 times a day. HD#4: Pt continues to show signs of hypomania though he denies subjective sense of racing thoughts, impulsivity, hypersexuality. Will await to have infomraiton from collateral sources to make diagnosis. PLAN: increase Seroquel to 600 mg at bedtime and reduce clonidine. HD#5: Patient reports that he is responding well to current medication treatment. He has a great number of questions regarding the rehab program he wants. All of the questions are reasonable but his inability to let things go indicate his degree of perplexity. His mother is also present and we discussed his pattern of moods. She describes him as having elevated episodes and low episodes. But none reached the level of bipolar karla. He does not go days without sleep. He is not impulsive when he is elevated. He does become violent during hsi down phases which would be consistent with clinical depression. On the other hand, she is unable to describe these in absence of his substance use. PLAN: add Celexa 20 mg at bedtime and change clonidine to 0.2 mg at bedtime Meds Current Medications: Current Medications Generic Name Dose Route Start Last Admin Trade Name Sean PRN Reason Stop Dose Admin Buprenorphine/Nalo xone 1 each 10/10/19 09:00 10/10/19 08:19 Suboxone 4-1 Mg SUBLINGUAL 1 each BID ERNESTO Administration Citalopram Hydrobr omide 20 mg 10/09/19 21:00 10/09/19 20:02 Celexa PO 20 mg BEDTIME ERNESTO Administration Clonidine HCl 0.2 mg 10/09/19 21:00 10/09/19 20:02 Catapres PO 0.2 mg BEDTIME ERNESTO Administration Folic Acid 1 mg 10/10/19 09:00 10/10/19 08:18 Folic Acid PO 1 mg DAILY ERNESTO Administration Levetiracetam 250 mg 10/10/19 09:00 10/10/19 08:18 Keppra PO 250 mg BID ERNESTO Administration Lorazepam 2 mg 10/09/19 18:23 10/10/19 02:07 Ativan PO 2 mg PROTOCOL PRN Administration WITHDRAWAL Protocol Multivitamins Ther apeutic 1 tab 10/10/19 09:00 10/10/19 08:18 Multivitamin Tab PO 1 tab DAILY ERNESTO Administration Olanzapine 5 mg 10/09/19 18:36 10/10/19 12:12 Zyprexa Zydis PO 5 mg Q4H PRN Administration Agitation/Psychos is Ondansetron HCl 4 mg 10/09/19 18:36 10/10/19 11:40 Zofran PO 4 mg Q6H PRN Administration NAUSEA AND VOMITI NG Quetiapine Fumarat e 600 mg 10/09/19 21:00 10/09/19 20:02 Seroquel PO 600 mg BEDTIME ERNESTO Administration Thiamine Mononitra te 100 mg 10/10/19 09:00 10/10/19 08:18 Vitamin B-1 PO 100 mg DAILY ERNESTO Administration PFSH NPU PFSH: Social History Smoking and tobacco status: never smoked Current gender identity: Male Mental Status Exam MSE Comments: This is an overweight versus obese, white male, with adequate dress, grooming, and eye contact. No abnormal movements, except for psychomotor retardation interspersed with psychomotor agitation. Semi-cooperative with exam in mild distress. Speech was normal rate and volume. Mood described as frustrated; affect congruent. Thought process, organized. Thought content: patient denied any suicidal or homicidal ideation, there were no delusions reported or noted, patient denied any auditory or visual hallucinations. Attention, concentration, and memory appear intact but were not formally tested. He is alert and oriented times three. Insight and judgment are limited. Vitals/I&O/Wt Last Vital Signs Temperature 98.3, pulse 124, respirations 18, pulse ox 93%, blood pressure 155/116. Weight last 48 hrs Weight 115.212 kg A&P Assessment and plan (1) Suicidal ideation: This is a 39 year old, white male, with mood dysregulation secondary to antisocial personality disorder, opiate use disorder, severe, depressive disorder, unspecified, and anxiety, who presents out of his Suboxone and feeling that he is at his wits end with some of the challenges that have occurred in his life. Continue current medication. Restart Suboxone. Admit to the neuropsych unit for a fast observation and discharge. Encourage individual, group, and milieu therapies. Initiate q-15 minute checks for safety. Will work with the high school social studies tutor team to get a clear appointment and make sure that we have a bridge to that appointment, for his Suboxone as well as his other medications, at discharge. Status: Acute (2) Homicidal ideation: Status: Acute (3) Depression: Status: Acute (4) Antisocial personality disorder: Status: Acute (5) Opiate use: Status: Acute Involuntary Hold Information 96 Hour Hold: 96 Hour Involuntary Admission: No 96 Hour Hold Ending Date: 08/28/19 96 Hour Hold Ending Time: 18:55 Attestations NPU Medical Necessity Statement*: This is a 39 year old, white male, with mood dysregulation secondary to antisocial personality disorder, opiate use disorder, severe, depressive disorder, unspecified, and anxiety, who presents out of his Suboxone and feeling that he is at his wits end with some of the challenges that have occurred in his life. Coding Level of Care Code Acute Water Hauler for g Fwd Diagnoses Suicidal ideation R45.851 Homicidal ideation R45.850 Depression F32.9 Antisocial personality disorder F60.2 Opiate use F11.90
[2019-10-09 18:27] VITALS: BP 155/116; PULSE 124; RESP 18; TEMP 36.8; O2SAT 93
[2019-10-09 18:36] VITALS: BP 155/116; PULSE 124; RESP 18; TEMP 36.8; O2SAT 93
[2019-10-09] MEDS: LORazepam 2 mg Tablet PO (20:02)
[2019-10-09] MEDS: cloNIDine 0.1 mg Tablet 0.2 MG PO (20:02)
[2019-10-09] MEDS: quetiapine 300 mg Tablet 600 MG PO (20:02)
[2019-10-09] MEDS: citalopram 20 mg Tablet PO (20:02)
--- NOTE | 2019-10-09 20:02 | PC.NURSE ---
PRN ATIVAN ATIVAN 2 MG PO GIVEN PER CIWA PROTOCOL. CIWA SCORE 10. WILL MONITOR FOR MEDICATION EFFECTIVENESS
[2019-10-09 21:13] VITALS: BP 159/101; PULSE 126; RESP 18; TEMP 36.3; O2SAT 95
[2019-10-10] MEDS: LORazepam 2 mg Tablet PO (02:07)
--- NOTE | 2019-10-10 02:07 | PC.NURSE ---
Addendum entered by Tabatha Abebe LPN 10/10/19 03:09: PRN ATIVAN FOLLOW-UP PT RESTING IN BED W/EYES CLOSED RR EVEN AND UNLABORED. WILL CONTINUE TO MONITOR. Original Note: PRN ATIVAN PT GIVEN ATIVAN 2 MG PER CIWA PROTOCOL. BP 119/78 PULSE 126 R - 22. CIWA SCORE - 10
[2019-10-10 04:39] VITALS: BP 139/101; PULSE 101
[2019-10-10 06:00] VITALS: BP 134/87; PULSE 101; RESP 21; TEMP 36.4; O2SAT 97
[2019-10-10] MEDS: multivitamin therapeutic Tablet 1 TAB PO (08:18)
[2019-10-10] MEDS: thiamine 100 mg Tablet PO (08:18)
[2019-10-10] MEDS: levETIRAcetam 500 mg Tablet 250 MG PO ×2 (08:18→17:18)
[2019-10-10] MEDS: folic acid 1 mg Tablet PO (08:18)
[2019-10-10] MEDS: buprenorphine-naloxone 4-1 mg Film 1 EACH SUBLINGUAL ×2 (08:19→17:18)
[2019-10-10] MEDS: ondansetron 4 MG Tablet PO (11:40)
--- NOTE | 2019-10-10 11:40 | PC.NURSE ---
Addendum entered by Jossie Price LPN 10/10/19 12:40: prn med effective no further c/o nausea currently Original Note: PRN ZOFRAN 4 MG GIVEN PO PER PT C/O NAUSEA WILL CONT TO MONITOR.
--- NOTE | 2019-10-10 11:45 | PC.NURSE ---
PT'S LUNCH MEAL HERE AND PT CAME TO NURSES STATION AND VOICED HE COULDN'T EAT THIS FUCKING FOOD AND ASKED IF THERE WAS SOMETHING ELSE HE COULD HAVE AND PRIMING MIXTURE CARRIER VOICED WE WOULD LOOK AND SEE IF THERE WAS . PT BECAME UPSET AND STARTED CURSING AND THREATENING NURSE PRUNE WASHER THAT HE DIDN'T HAVE A MENU TO PICK OUT WHAT HE WANTED AND WAS TOLD THAT WHEN HE ARRIVED ON UNIT IT WAS AFTER THE MENUS WERE TAKEN UP AND THAT HE COULD REQUEST SOMETHING LATER THIS EVENING FOR DINNER. PT CONTINUED TO CURSE AT STAFF,PACE AND PRIMING MIXTURE CARRIER ATTEMPTED TO DEESCALATE PT AND ASKED HIM IF HE WANTED A SANDWICH AND HE ASKED FOR 2 SANDWICHES AND TOLD PT THAT WE WOULD SEE WHAT WE COULD DO BUT HE WOULD NEED TO TRY AND CALM HIMSELF AND OFFERED PT SOMETHING FOR ANXIETY. PT VERBALIZED AND POINTED TO NURSING PRUNE WASHER THAT SHE WAS A FUCKING BITCH AND HE DIDN'T NEED TO PUT UP WITH HER SHIT ABD SHE WAS RUDE. PRIMING MIXTURE CARRIER ASKED STAFF TO CALL SECURITY TO JUST COME DOWN AND BE HERE . SECURITY WENT TO TALK WITH PT IN THE DAY ROOM AND PT STARTED TO CALM A LITTLE,BUT TOLD HIM THAT WE HAD MEDICATION TO HELP WITH ANXIETY.WILL CONT TO MONITOR AND FOLLOW UP NEEDED
[2019-10-10] MEDS: OLANZapine ODT 5 MG TABLET PO (12:12)
--- NOTE | 2019-10-10 12:12 | PC.NURSE ---
STOCK DIGGER ADMINISTERED ZYPREXA ZYDIS 5MG ORDERED FOR ANXIETY.WILL CONT TO MONITOR AND FOLLOW UP NEEDED
--- NOTE | 2019-10-10 13:12 | PC.NURSE ---
PT VOICES THAT MEDICATION WAS HELPFUL WITH HIS ANXIETY. WILL CONT TO MONITOR NEEDED
[2019-10-10 14:00] VITALS: BP 151/96; PULSE 111; RESP 19; TEMP 36.6; O2SAT 97
--- NOTE | 2019-10-10 16:06 | P.SS_ITS ---
Short Stay Summary Providers Date of Admit/Discharge: 10/10/19 Attending Provider: Lewis Erwin MD Chief Complaint: ams, poss seizure HPI History of Present Illness Kyle Cartwright is a 39 year old male who presented to the emergency room yesterday after a reported episode of confusion and a fall that he says resulted in him having a seizure. Initially the evaluation centered around that but then later he became very tearful talking about the of his best friend and his girlfriend also succumbing to addiction. He was really upset about the fact that his Suboxone had run out and he was now struggling with sobriety and endorsed suicidal thoughts and was intermittently aggressive and acting out and was unable to contract for safety. He got to the unit and acclimated to the individual group and family therapies provided. We were able to figure out some options to get him an appointment within 2 weeks. We agreed that we will give him a 2 week supply of Suboxone and that we would not do that again unless he has actually connected with outpatient provider. He reports that he had tried to get connected with a warrant given appointments for 4-5 weeks so the 2 week supply previously had was not helpful. Once we were able to set those things up he was denying all lethality and endorsed a desire to go home. Excerpts from consult from yesterday is included below for some recent historical data. Psychiatric history: He's had over 20 hospitalizations here and is unclear if these constellation of other places. He's been on multiple medications. Substance abuse history: He is struggling with opiate and alcohol addiction for some time is currently on agonist therapy for his opiates. Psychosocial history: He currently lives with his mother reports that they have a good relationship and sometimes she is a challenge for him. He also reports having children that he is responsible for. No recent history of working. Per [facility] consult yesterday: Psych Consult HPI History of Present Illness Kyle Cartwright is a 39 year old male Kyle presents today after a significantly chaotic presentation to the emergency room wherein he presented with reports t hat he had fallen and hit his head and had a seizure, and that he was currently postictal. Full evaluation left significant questions as to whether that story was accurate. He initially had endorsed that he wanted to go to the neuropsych unit, however, after some time passed, he reversed position and said he did not want to go to the neuropsych unit. He reported that he was going to get aggressive with one of the security guards and, at one point, a code was called because of how aggressive he was being. I was called in to consult on the case and began discussing his situation. He reported he was struggling with his relationship with his mother and that she was giving him a hard time. He also reported that he was struggling with his recovery because he was on Suboxone and then was not able to get Suboxone, and he is just really feeling like everything has gone the wrong way in his life, and he just does not know if it is worth it. We discussed his issue in getting a Suboxone treatment facility. In fact, I contacted some of the social workers and was just looking at what our options were. He was tearful at times and was somewhat ambivalent about the actual level of lethality that he was feeling. We discussed the risks, benefits, and alternatives of admission versus discharge, and he understood and agreed to proceed as is documented in this note. Below you will find the discharge summary from his last evaluation with Dr. Jeter; within that he noted that there had not been any changes in his psychosocial circumstances. Per his DC summary from August: Hospital Course Discharge Summary Chief complaint: I've been doing heroin off and on for the past 3 years but really heavily for the past month. History of present illness:Kyle Cartwright is a 38 year old male He reports that he has been doing heroin and is ashamed about it. He has not told anybody that revealed one how frequently he was shooting heroin. He says using very heavily in the past month and is in heroin withdrawal at this time. he reports using Clean needles and multiple times a day. He says he has been to a rehabilitation program and was treated successfully with Suboxone. He has not had any heroin in the last 4 days and is currently in heroin withdrawal. He was admitted on the strength of 96 hour affidavit filed by his mother. The patient and his mother apparently have a very close relationship as they live together. Mother states that he is not medically stable. He has been verbally abusive to she and his and stole money from her. He has threatened his ex-girlfriend. Mother makes no mention is heroin. Patient states that he has hit his heroin is his mother is ashamed of his behavior. He says that this is going to bring her heart and that they will have a very difficult time with relationship when she finds out that he has been using. He otherwise denies psychiatric symptoms. He had a friend who from a heroin overdose. He specifically does not want to . He denies any suicidal or homicidal threats. He is not angry at his mother for filing affidavit is embarrassed that he made statements that she says that he made. Diagnoses: Opiate dependence Opiate withdrawal Major Depression ? recurrent, currently in remission Antisocial personality traits Seizure disorder?by history, type unknown Assessment: The patient presents as a 38-year-old man in the throes of heroin addiction and emotional distress over the fact that it is having on his family. The intent at this time is to treat him for opiate withdrawal and assess potential for entry into a rehabilitation program. There is no indication of imminent risk to self or others as evidenced by information in this interview and his past mental health treatment. He will be restarted on previously effective medications and treated for symptoms of opiate withdrawal. Treatment plan: Due to the psychiatric conditions and treatment listed in the Assessment and Plan - the patient requires continued hospitalization. Will provide a safe and therapeutic environment for patient.. Will continue inpatient treatment to allow for medication adjustment and monitoring. Will continue q15 min safety checks. The patient presents a 38-year-old man in the throes of heroin addiction and emotional distress over the fact that it is having on his family. The intent at this time is to treat him for opiate withdrawal and assess potential for entry into a rehabilitation program. There is no indication of imminent risk to self or others as evidenced by information in this interview and his past mental health treatment. He will be restarted on previously effective medications and treated for symptoms of opiate withdrawal. Restart Keppra 250 mg twice a day, Suboxone at 4/1 milligram twice a day, clonidine 0.1 mg 3 times a day, and Seroquel 300 mg at bedtime. Hospital day #3:Will continue current medications and monitor for medication side effects. Suboxone 4/1 twice a day, Seroquel 300 mg at bedtime, Keppra 250 mg twice a day, and clonidine 0.1 mg 3 times a day. HD#4: Pt continues to show signs of hypomania though he denies subjective sense of racing thoughts, impulsivity, hypersexuality. Will await to have infomraiton from collateral sources to make diagnosis. PLAN: increase Seroquel to 600 mg at bedtime and reduce clonidine. HD#5: Patient reports that he is responding well to current medication treatment. He has a great number of questions regarding the rehab program he wants. All of the questions are reasonable but his inability to let things go indicate his degree of perplexity. His mother is also present and we discussed his pattern of moods. She describes him as having elevated episodes and low episodes. But none reached the level of bipolar karla. He does not go days without sleep. He is not impulsive when he is elevated. He does become violent during hsi down phases which would be consistent with clinical depression. On the other hand, she is unable to describe these in absence of his substance use. PLAN: add Celexa 20 mg at bedtime and change clonidine to 0.2 mg at bedtime Mental status examination: Is an overweight versus obese white male with adequate rest, grooming and eye contact. No abnormal movements cooperative with exam in no acute distress. Speech was normal rate and volume. Mood described as better affect congruent. Thought process organized. Thought content: Patient denied any suicidal or homicidal ideations, there were no delusions reportedly noted, he denied any auditory or visual hallucinations. Attention and concentration were intact and memory was mostly reliable but none were formally tested. He is alert and oriented ?3. Insight and judgment are limited but improving. Home Meds/Allergies Home Medications and Allergies Home Medications Medication Instructions Recorded Confirmed Type creatine monohydrate See Rx Instructions .ROUTE .COMPLEX 10/09/19 10/09/19 History Allergies Allergy/AdvReac Type Severity Reaction Status Date / Time ketorolac [From Toradol] Allergy Unknown Verified 10/09/19 13:32 PFSH Acute PFSH: Social History Smoking and tobacco status: never smoked Current gender identity: Male Vitals/I&O/Wt Last Vital Signs Temp 97.8 F 10/10/19 14:00 Pulse 111 H 10/10/19 14:00 Resp 19 H 10/10/19 14:00 BP 151/96 10/10/19 14:00 Pulse Ox 97 10/10/19 14:00 Weight last 48 hrs Weight 115.212 kg Home Medications buprenorphine-naloxone [Suboxone] 1 ea SUBLINGUAL BID #28 ea 08/25/19 [Rx Confirmed 10/09/19] citalopram 20 mg PO BEDTIME #30 tab 08/25/19 [Rx Confirmed 10/09/19] clonidine HCl 0.2 mg PO BEDTIME #30 tab 08/25/19 [Rx Confirmed 10/09/19] levetiracetam 250 mg PO BID #60 tab 08/25/19 [Rx Confirmed 10/09/19] quetiapine 600 mg PO BEDTIME #60 tab 08/25/19 [Rx Confirmed 10/09/19] creatine monohydrate See Rx Instructions .ROUTE .COMPLEX 10/09/19 [History Confirmed 10/09/19] Active Medications Acetaminophen (Tylenol) 650 mg PO Q4H PRN PRN Reason: MILD PAIN Benztropine Mesylate (Cogentin) 1 mg PO BID PRN PRN Reason: Mild Extrapyramidal symptoms Buprenorphine/Naloxone (Suboxone 4-1 Mg) 1 each SUBLINGUAL BID [facility] Last Admin: 10/10/19 08:19 Dose: 1 each Documented by: Camphor/Menthol/Phenol (Blistex) 1 applic TOPICAL Q1H PRN PRN Reason: DRYNESS Citalopram Hydrobromide (Celexa) 20 mg PO BEDTIME [facility] Last Admin: 10/09/19 20:02 Dose: 20 mg Documented by: Clonidine HCl (Catapres) 0.2 mg PO BEDTIME [facility] Last Admin: 10/09/19 20:02 Dose: 0.2 mg Documented by: Diphenhydramine HCl (Benadryl) 50 mg IM ONCE PRN PRN Reason: Severe Extrapyramidal Symptoms Diphenhydramine HCl (Benadryl) 50 mg IM Q4H PRN PRN Reason: Severe Aggression Folic Acid (Folic Acid) 1 mg PO DAILY [facility] Last Admin: 10/10/19 08:18 Dose: 1 mg Documented by: Haloperidol (Haldol) 5 mg PO Q4H PRN PRN Reason: AGITATION Haloperidol Lactate (Haldol Inj) 5 mg IM Q4H PRN PRN Reason: Severe Aggression Hydroxyzine Pamoate (Vistaril) 50 mg PO Q6H PRN PRN Reason: ANXIETY Levetiracetam (Keppra) 250 mg PO BID [facility] Last Admin: 10/10/19 08:18 Dose: 250 mg Documented by: Loperamide HCl (Imodium Capsule) 2 mg PO Q6H PRN PRN Reason: DIARRHEA Lorazepam (Ativan) 2 mg IM PROTOCOL PRN; Protocol PRN Reason: ALCOWD Lorazepam (Ativan) 2 mg PO PROTOCOL PRN; Protocol PRN Reason: WITHDRAWAL Last Admin: 10/10/19 02:07 Dose: 2 mg Documented by: Lorazepam (Ativan) 2 mg IM Q4H PRN PRN Reason: Severe Aggression Multivitamins Therapeutic (Multivitamin Tab) 1 tab PO DAILY [facility] Last Admin: 10/10/19 08:18 Dose: 1 tab Documented by: Nicotine (Nicoderm 21 Mg Patch) 1 patch TRANSDERMA DAILY PRN PRN Reason: NICOTINE WITHDRAWAL Nicotine Polacrilex (Nicorette) 2 mg BUCCAL Q2H PRN PRN Reason: NICOTINE WITHDRAWAL Olanzapine (Zyprexa Zydis) 5 mg PO Q4H PRN PRN Reason: Agitation/Psychosis Last Admin: 10/10/19 12:12 Dose: 5 mg Documented by: Ondansetron HCl (Zofran) 4 mg PO Q6H PRN PRN Reason: NAUSEA AND VOMITING Last Admin: 10/10/19 11:40 Dose: 4 mg Documented by: Quetiapine Fumarate (Seroquel) 600 mg PO BEDTIME [facility] Last Admin: 10/09/19 20:02 Dose: 600 mg Documented by: Thiamine Mononitrate (Vitamin B-1) 100 mg PO DAILY [facility] Last Admin: 10/10/19 08:18 Dose: 100 mg Documented by: Trazodone HCl (Desyrel) 50 mg PO BEDTIME PRN PRN Reason: SLEEP Hospital Course Hospital Course: I presented to the emergency room reporting a seizure and ultimately lethality. He was admitted to the neuro psych unit and acclimated to the individual, group and milieu therapy. We developed a plan to get him back on his Suboxone and continued his other medications. He has routine laboratory studies which were within normal limits except for few outliers. Additionally he had a general medical evaluation which was within normal limits in revealed no significant acute processes. Discharge Summary: At the time of discharge he was absent lethality, his mood and anxiety were stable, there was no psychosis and he endorsed the plan follow- up with outpatient services as they were recommended. He was evaluated and deemed to be without credible lethality so his 96 hour hold was ended, and he was discharged. SSS Data Data Completed and Pending: Completed Studies During Hospitalization Category Date Time Status CT head wo con* 7 0450 Stat Cat Scan 10/09/19 15:46 Completed Diagnoses at Discharge Discharge Diagnosis (1) Suicidal ideation: Status: Acute (2) Homicidal ideation: Status: Acute (3) Depression: Status: Acute (4) Antisocial personality disorder: Status: Acute (5) Opiate use: Status: Acute Discharge Plan Discharge Patient Disposition: Home, Self-Care Condition: Stable Prescriptions: Continued clonidine HCl 0.1 mg Tablet 0.2 mg PO BEDTIME Qty: 30 RF: 2 quetiapine 300 mg Tablet 600 mg PO BEDTIME Qty: 60 RF: 2 levetiracetam 500 mg Tablet 250 mg PO BID Qty: 60 RF: 2 citalopram 20 mg Tablet 20 mg PO BEDTIME Qty: 30 RF: 3 buprenorphine-naloxone [Suboxone] 4-1 mg Film 1 ea sublingual BID Qty: 28 RF: 0 creatine monohydrate 5,000 mg Powder In Packet See Rx Instructions .ROUTE .COMPLEX RF: 0 Discharge Orders: Discharge Order (Routine); Ordered 10/10/19 Ordered By: Lewis Erwin Referrals: [facility] [Outside] - 10/17/19 1:00 pm (For individual therapy you will get a call on SundayOctober 14 to remind you that you have a phone individual therapy session on Sunday. If you have not had a reminder call, make sure you call [facility] on October 15 and tell them. Your therapist, Patrice Lunsford will be calling you on SundayOctober 16. For psychiatric medication management, you will need to call [facility] if you want the appointment. It is recommended that you call [facility] within 3-5 days of discharge. An appointment was requested but you still need to call and find out when you can get one for follow-up. ) Michelle Tinoco MD [Physician] - 02/18/20 2:00 pm Discharge Diet: Regular Discharge Activity: Resume usual activity Activity Restrictions/Additional Instructions: Possible resources for suboxone... 1. [facility] Address [address] [place] [address] Call and schedule an appointment. Right now the earliest appointment available is next SundayOctober 14. YOU must make the appointment. You will need to pay $155 for the first appointment and that will cover your first week. After that, you will pay $105 weekly. Hours of Operation: Sunday through Sunday, 6:00 am ? 2:30 pm Sunday, 7:00 am ? 9:00 am 2. [facility] [address] [place] [address] Get Directions [phone] To get set up for services you must first do initial intake at 7:30 a.m. OR noon Sunday, Sunday, or Sunday; or 7:30 a.m. only on Sunday. Right now, the earliest you can get seen for the initial intake is SundayOctober 19 @ 7:30 a.m. in [place]. But, You will not necessarily get to see a psychiatrist immediately. It might take a week or so to see the suboxone provider. General Hours: Sunday-, 8 a.m. to 8 p.m. Sunday, 8 a.m. to 5 p.m. Services offered at this location: Adult [facility] and addiction therapy services. 3. [facility] Addiction Medicine Address: [address] [place] [id number] Call and check on your referral once you submit application. Right now, it has been said that it will be at least a couple of weeks before you will be able to get an appointment for the initial intake. It is unknown exactly how soon you will be put on the suboxone if you qualify. You have to have the intake done first to know the start date. YOU must get the application to them in order to get initial intake. Attestations Medical Necessity Statement*: He was absent credible lethality, and he was resumed on his Suboxone and an appointment so that there will be no break in his treatment was obtained. With services in place in his ability to contract for safety he was discharged without need for continued inpatient stay. Time Spent in Patient Care*: greater than 30 min Specific Discharge Activities: Specific discharge activities: educating patient, discussing with case worker/social workers/dc planners, documenting/other paperwork and evaluating patient/reviewing data Quality Metrics Clinical Quality Measures: During this hospital stay, did patient experience: None Coding Level of Care Code Acute Match Marker for g Fwd Diagnoses Suicidal ideation R45.851 Homicidal ideation R45.850 Depression F32.9 Antisocial personality disorder F60.2 Opiate use F11.90
[2019-10-10 16:29] VITALS: BP 151/96; PULSE 111; RESP 19; TEMP 36.6; O2SAT 97
== END 2019-10-10 17:37 | disposition home or self-care (01) | DRG 897 ==
LOC: ER 13:27 → NP 17:21
PROVIDERS: Admitting Provider Psychiatry & Neurology Psychiatry; Emergency Provider Family Medicine; Visit Provider Psychiatry & Neurology Psychiatry
DX: F11.23 Opioid dependence with withdrawal (principal); F33.40 Major depressive disorder, recurrent, in remission, unspecified; F60.2 Antisocial personality disorder; G40.909 Epilepsy, unspecified, not intractable, without status epilepticus; Z91.81 History of falling
CPT/HCPCS: 12345; 36415; 70450; 80053; 80306; 80307; 81003; 85025; 96372; 96374; 99283; J0573; J2060; J3486; Q0162

== ENCOUNTER 2019-11-15 15:40 | Emergency (ER) | payer MEDICAID, SELFPAY ==
[2019-11-15 15:46] VITALS: BP 137/103; PULSE 125; RESP 18; TEMP 36.5; O2SAT 98; BMI 30.4
--- NOTE | 2019-11-15 16:19 | XR_ITS ---
WS: [id number] XR chest 1V portable [id number] REASON FOR EXAM: chest pain FINDINGS: The heart and mediastinal interfaces normal. The lung [place] are well aerated. No pneumonia, pleural effusion, pulmonary edema, or mass effect. There is no interval change since October 08, 2019 XR/XR chest 1V portable [id number] IMPRESSION: Negative chest for acute findings.
--- NOTE | 2019-11-15 16:20 | ECG_ITS ---
Measurements Intervals [place] Rate: 118 P: 14 CT: 167 QRS: 50 QRSD: 97 T: 21 QT: 298 QTc: 419 SINUS TACHYCARDIA ABNORMAL RHYTHM ECG Compared to ECG 10/08/2019 04:35:05 Poor R-wave progression no longer present Electronically Signed On 11-16-2019 19:57:19 CDT by Liliya Galaviz M.D. [email or web address]
[2019-11-15] MEDS: LORazepam 1 mg Tablet PO (16:35)
[2019-11-15 16:46] LABS: Add Urine Microscopic? NO
[2019-11-15 16:49] LABS: Bilirubin Urine Neg (NEGATIVE); Blood Urine Neg (Negative); Glucose Urine UA Norm (Normal); Ketones Urine Negative (Negative); Leukocyte Esterase Urine Negative (Negative); Nitrate Urine Negative (Negative); Protein Urine Neg (Negative); Urine Appearance Clear (CLEAR); Urine Color Yellow (Yellow); Urobilinogen Urine Norm (Negative); pH Urine 6.5 (5-7)
[2019-11-15 16:58] LABS: Amphetamines Screen Urine Negative (Negative); Barbiturates Screen Urine Negative (Negative); Benzodiazepines Screen Urine Positive (Negative); Cocaine Screen Urine Negative (Negative); Opiate Screen Urine Negative (Negative); PCP Screen Urine Negative (Negative); THC Screen Urine Negative (Negative)
[2019-11-15 16:59] LABS: Basophils # 0.1 10^3/uL (0.0-0.1); Basophils % 0.9 %; Eosinophils # 0.6 10^3/uL (0.0-0.8); Eosinophils % 6.6 %; Hematocrit 45.9 % (42.0-52.0); Hemoglobin 15.3 g/dL (11.7-16.6); Lymphocytes # 2.4 10^3/uL (0.8-4.8); Lymphocytes % 27.6 %; Mean Corpuscular HGB Conc 33.3 g/dL (30.0-36.0); Mean Corpuscular Hemoglobin 29.9 pg (28.0-34.0); Mean Corpuscular Volume 89.8 fL (80-94); Mean Platelet Volume 10.8 fL (7.4-10.4); Monocytes # 0.8 10^3/uL (0.2-0.9); Monocytes % 9.3 %; Neutrophils # 4.8 10^3/uL (1.8-7.7); Neutrophils % 54.6 %; Nucleated Red Blood Cells % 0 %; Platelet Count 224 10^3/cmm (130-400); Red Blood Count 5.11 10^6/uL (4.1-5.3); Red Cell Distribution Width 12.9 % (12.1-15.1); White Blood Count 8.8 10^3/uL (4.0-10.0)
[2019-11-15 17:14] LABS: Alanine Aminotransferase 35 U/L (0-41); Albumin Level 4.5 g/dL (3.5-5.2); Alcohol Level 169 mg/dL (0-10); Alkaline Phosphatase 107 IU/L (40-130); Anion Gap 18.9 (5-19); Aspartate Amino Transferase 21 U/L (0-40); Blood Urea Nitrogen 11 mg/dL (6-20); Calcium 8.8 mg/dL (8.5-10.5); Carbon Dioxide 23 mmol/L (22-29); Chloride 101 mmol/L (98-107); Creatinine Clr Calc Pharmacy 121.0754; Globulin 2.1 g/dL (1.3-4.6); Glomerular Filtration Rate 67.8 mL/min (90-130); Glucose 118 mg/dL (65-115); Osmolality Calculated 285 mOsm/kg (285-295); Potassium 3.9 mmol/L (3.5-5.1); Sodium 139 mmol/L (136-145); Total Bilirubin 0.2 mg/dL (0.15-1.2); Total Protein 6.6 g/dL (6.6-8.7)
[2019-11-15 17:16] LABS: Troponin(5th) Baseline 9 ng/mL (0-15)
[2019-11-15 17:24] VITALS: BP 149/89; PULSE 117; RESP 14; O2SAT 95
[2019-11-15 17:45] LABS: Acetaminophen < 5.0 ug/mL (10-30); Salicylate < 0.3 mg/dL (3-10)
--- NOTE | 2019-11-15 19:13 | PC.NURSE ---
EKG done at 1910 and shown to ER doctor
[2019-11-15 19:15] LABS: Troponin 5 2HR 9.09 ng/mL (0-15); Troponin 5 2HR Delta 0.09 ABS# (0-10)
--- NOTE | 2019-11-15 22:20 | ECG_ITS ---
Measurements Intervals [place] Rate: 113 P: 11 HI: 150 QRS: 54 QRSD: 91 T: 30 QT: 309 QTc: 425 SINUS TACHYCARDIA ABNORMAL RHYTHM ECG Compared to ECG 10/08/2019 04:35:05 Poor R-wave progression no longer present Electronically Signed On 11-16-2019 20:12:41 CDT by Liliya Galaviz M.D. [email or web address]
--- NOTE | 2019-11-15 22:29 | PM.PSYCN ---
Providers/Reason for Consult Consulting Physican/Specialty*: Lewis Erwin MD. Psychiatry. Reason for Consult*: Evaluation for need for inpatient stay versus safety for discharge. Attending Physician: Nilson Sims Psych Consult HPI History of Present Illness Kyle Cartwright is a 39 year old male who presented to the emergency room requesting Suboxone. He endorsed running out of his medication and being in withdrawal having some use of other opiates to manage said withdrawal. There had been some mention suicidality, but none mentioned to the attending physician. Psychiatric consult for evaluation for safety for discharge versus admission was requested. Kyle is well-known to this typewriter aligner from previous presentations all of which surrounded him not having access to Suboxone. After a brief conversation about the fact that the last time he was seen we agreed that we would not go down this path again of reconnecting him with Suboxone. We agreed that we would not support his lack of follow-through by baling him out so to speak. He agreed and accepted that he would have to go and follow through to get the Suboxone treatment he reports is successful for him. Below see enclosed excerpt from his last evaluation as he denies any substantive changes to his psychosocial circumstances. Per his last [facility] [place] 10/10/19: History of Present Illness Kyle Cartwright is a 39 year old male who presented to the emergency room yesterday after a reported episode of confusion and a fall that he says resulted in him having a seizure. Initially the evaluation centered around that but then later he became very tearful talking about the of his best friend and his girlfriend also succumbing to addiction. He was really upset about the fact that his Suboxone had run out and he was now struggling with sobriety and endorsed suicidal thoughts and was intermittently aggressive and acting out and was unable to contract for safety. He got to the unit and acclimated to the individual group and family therapies provided. We were able to figure out some options to get him an appointment within 2 weeks. We agreed that we will give him a 2 week supply of Suboxone and that we would not do that again unless he has actually connected with outpatient provider. He reports that he had tried to get connected with a warrant given appointments for 4-5 weeks so the 2 week supply previously had was not helpful. Once we were able to set those things up he was denying all lethality and endorsed a desire to go home. Excerpts from consult from yesterday is included below for some recent historical data. Psychiatric history: He's had over 20 hospitalizations here and is unclear if these constellation of other places. He's been on multiple medications. Substance abuse history: He is struggling with opiate and alcohol addiction for some time is currently on agonist therapy for his opiates. Psychosocial history: He currently lives with his mother reports that they have a good relationship and sometimes she is a challenge for him. He also reports having children that he is responsible for. No recent history of working. Per [facility] consult yesterday: Psych Consult HPI History of Present Illness Kyle Cartwright is a 39 year old male Kyle presents today after a significantly chaotic presentation to the emergency room wherein he presented with reports that he had fallen and hit his head and had a seizure, and that he was currently postictal. Full evaluation left significant questions as to whether that story was accurate. He initially had endorsed that he wanted to go to the neuropsych unit, however, after some time passed, he reversed position and said he did not want to go to the neuropsych unit. He reported that he was going to get aggressive with one of the security guards and, at one point, a code was called because of how aggressive he was being. I was called in to consult on the case and began discussing his situation. He reported he was struggling with his relationship with his mother and that she was giving him a hard time. He also reported that he was struggling with his recovery because he was on Suboxone and then was not able to get Suboxone, and he is just really feeling like everything has gone the wrong way in his life, and he just does not know if it is worth it. We discussed his issue in getting a Suboxone treatment facility. In fact, I contacted some of the social workers and was just looking at what our options were. He was tearful at times and was somewhat ambivalent about the actual level of lethality that he was feeling. We discussed the risks, benefits, and alternatives of admission versus discharge, and he understood and agreed to proceed as is documented in this note. Below you will find the discharge summary from his last evaluation with Dr. Jeter; within that he noted that there had not been any changes in his psychosocial circumstances. Per his DC summary from August: Hospital Course Discharge Summary Chief complaint: I've been doing heroin off and on for the past 3 years but really heavily for the past month. History of present illness:Kyle Cartwright is a 38 year old male He reports that he has been doing heroin and is ashamed about it. He has not told anybody that revealed one how frequently he was shooting heroin. He says using very heavily in the past month and is in heroin withdrawal at this time. he reports using Clean needles and multiple times a day. He says he has been to a rehabilitation program and was treated successfully with Suboxone. He has not had any heroin in the last 4 days and is currently in heroin withdrawal. He was admitted on the strength of 96 hour affidavit filed by his mother. The patient and his mother apparently have a very close relationship as they live together. Mother states that he is not medically stable. He has been verbally abusive to she and his and stole money from her. He has threatened his ex-girlfriend. Mother makes no mention is heroin. Patient states that he has hit his heroin is his mother is ashamed of his behavior. He says that this is going to bring her heart and that they will have a very difficult time with relationship when she finds out that he has been using. He otherwise denies psychiatric symptoms. He had a friend who from a heroin overdose. He specifically does not want to . He denies any suicidal or homicidal threats. He is not angry at his mother for filing affidavit is embarrassed that he made statements that she says that he made. Diagnoses: Opiate dependence Opiate withdrawal Major Depression ? recurrent, currently in remission Antisocial personality traits Seizure disorder?by history, type unknown Assessment: The patient presents as a 38-year-old man in the throes of heroin addiction and emotional distress over the fact that it is having on his family. The intent at this time is to treat him for opiate withdrawal and assess potential for entry into a rehabilitation program. There is no indication of imminent risk to self or others as evidenced by information in this interview and his past mental health treatment. He will be restarted on previously effective medications and treated for symptoms of opiate withdrawal. Treatment plan: Due to the psychiatric conditions and treatment listed in the Assessment and Plan - the patient requires continued hospitalization. Will provide a safe and therapeutic environment for patient.. Will continue inpatient treatment to allow for medication adjustment and monitoring. Will continue q15 min safety checks. The patient presents a 38-year-old man in the throes of heroin addiction and emotional distress over the fact that it is having on his family. The intent at this time is to treat him for opiate withdrawal and assess potential for entry into a rehabilitation program. There is no indication of imminent risk to self or others as evidenced by information in this interview and his past mental health treatment. He will be restarted on previously effective medications and treated for symptoms of opiate withdrawal. Restart Keppra 250 mg twice a day, Suboxone at 4/1 milligram twice a day, clonidine 0.1 mg 3 times a day, and Seroquel 300 mg at bedtime. Hospital day #3:Will continue current medications and monitor for medication side effects. Suboxone 4/1 twice a day, Seroquel 300 mg at bedtime, Keppra 250 mg twice a day, and clonidine 0.1 mg 3 times a day. HD#4: Pt continues to show signs of hypomania though he denies subjective sense of racing thoughts, impulsivity, hypersexuality. Will await to have infomraiton from collateral sources to make diagnosis. PLAN: increase Seroquel to 600 mg at bedtime and reduce clonidine. HD#5: Patient reports that he is responding well to current medication treatment. He has a great number of questions regarding the rehab program he wants. All of the questions are reasonable but his inability to let things go indicate his degree of perplexity. His mother is also present and we discussed his pattern of moods. She describes him as having elevated episodes and low episodes. But none reached the level of bipolar karla. He does not go days without sleep. He is not impulsive when he is elevated. He does become violent during hsi down phases which would be consistent with clinical depression. On the other hand, she is unable to describe these in absence of his substance use. PLAN: add Celexa 20 mg at bedtime and change clonidine to 0.2 mg at bedtime Mental status examination: Is an overweight versus obese white male with adequate rest, grooming and eye contact. No abnormal movements cooperative with exam in no acute distress. Speech was normal rate and volume. Mood described as better affect congruent. Thought process organized. Thought content: Patient denied any suicidal or homicidal ideations, there were no delusions reportedly noted, he denied any auditory or visual hallucinations. Attention and concentration were intact and memory was mostly reliable but none were formally tested. He is alert and oriented ?3. Insight and judgment are limited but improving. PFSH NPU PFSH: Medical History (Updated 01/08/20 @ 00:38 by Lewis Erwin MD) Alcoholism Anxiety Bipolar disorder Chronic back pain Depression GI bleed Hepatitis IBS (irritable bowel syndrome) Intermittent explosive disorder PTSD (post-traumatic stress disorder) Rectal bleed Seizure disorder Substance abuse Suicidal ideation Suicide attempt Surgical History History of back surgery Social History Smoking and tobacco status: smoker, details unknown Current gender identity: Male Mental Status Exam MSE Comments: This is an overweight versus obese, white male, with adequate dress, grooming, and eye contact. No abnormal movements, except for psychomotor retardation interspersed with psychomotor agitation. Semi-cooperative with exam in mild distress. Speech was normal rate and volume. Mood described as fine; affect annoyed. Thought process, organized. Thought content: patient denied any suicidal or homicidal ideation, there were no delusions reported or noted, patient denied any auditory or visual hallucinations. Attention, concentration, and memory appear intact but were not formally tested. He is alert and oriented times three. Insight and judgment are limited.Impulse control limited. Vitals/I&O/Wt Last Vital Signs Temp 97.7 F 11/15/19 15:46 Pulse 117 H 11/15/19 17:24 Resp 14 11/15/19 17:24 BP 149/89 11/15/19 17:24 Pulse Ox 95 11/15/19 17:24 A&P Assessment and plan (1) Antisocial personality disorder: Status: Acute (2) Depression: Status: Acute Qualifiers: Depression Type: unspecified Qualified Code(s): F32.9 - Major depressive disorder, single episode, unspecified (3) Opioid use disorder, severe, in early remission, on maintenance therapy, dependence: Status: Acute Additional A&P Information This is a 39 year old, white male, with mood dysregulation secondary to antisocial personality disorder, opiate use disorder, severe, depressive disorder, unspecified, and anxiety, who presents out of his Suboxone and feeling that he is at his wits end with some of the challenges that have occurred in his life. Continue current medication. Allow to discharge AGAINST MEDICAL ADVICE given the absence of credible lethality and the repeat nature of these visits seeking access to Suboxone without connection with ongoing treatment. Involuntary Hold Information 96 Hour Hold: 96 Hour Involuntary Admission: No 96 Hour Hold Ending Date: 08/28/19 96 Hour Hold Ending Time: 18:55 Attestations NPU Medical Necessity Statement*: Inpatient hospitalization is not medically necessary but could be possibly beneficial however no plans to restart or continue Suboxone without outpatient following through and Kyle connecting with the outpatient resources recommended. So patient left AGAINST MEDICAL ADVICE. 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
--- NOTE | 2019-11-15 23:01 | W.ED.PSYCH ---
HPI - Psych General: Chief Complaint: Psychiatric Symptoms Stated Complaint: mhe/SI Time Seen by Provider: 11/15/19 16:05 Source: patient Mode of arrival: ambulatory Limitations: no limitations History of Present Illness: HPI Narrative: He is a 39-year-old gentleman with an extensive psychiatric history who presents to the emergency department wanting Suboxone. He has been on Suboxone and he said he ran out a couple of days ago and thinks he may be withdrawing. He also says he substituted heroin for Suboxone and would like to be admitted for detox. Even though he had mentioned that he was suicidal to the nurses he denied suicidal ideation to me. He mainly just wants to be in a rehab facility MD complaint: feels depressed Treatments prior to arrival: none Review of Systems General: Reports: 10 or more systems reviewed and unremarkable except in HPI and below Const: Denies: fever, chills or body aches Eyes: Denies: change in vision or blurry vision ENMT: Denies: throat pain, enlarged tonsils, painful swallowing, hoarseness, mouth pain or swelling of lips/tongue Card: Denies: palpitations, irregular heart rhythm, edema or swelling of feet/ankles Resp: Denies: shortness of breath, productive cough or non-productive cough GI: Denies: abdominal pain, nausea or vomiting : Denies: flank pain, painful urination, urinary frequency, urinary urgency or urinary hesitancy Musc: Denies: neck pain, back pain or extremity swelling Skin/Breast: Denies: rash, itching or redness Neuro: Denies: headache, numbness in extremities or weakness in extremities Endo: Denies: excessive urination, excessive thirst or tired all the time [facility] PFSH: Social History Smoking and tobacco status: smoker, details unknown Current gender identity: Male Physical Exam Const: COMMON NORMALS: no apparent distress, average body habitus, oriented x3, no limitations, healthy appearing, alert and well nourished HENMT: COMMON NORMALS: normocephalic, head/scalp atraumatic and moist oral mucous membranes HEAD & SCALP: normocephalic and atraumatic Eye: COMMON NORMALS: PERRL, EOMs intact bilaterally, conjunctivae normal and no scleral icterus CONJUNCTIVA: Yes conjunctivae normal PUPIL: Yes PERRL Neck/C-Spine: COMMON NORMALS: full ROM, supple, no meningeal signs, no JVD and no carotid bruits Chest: COMMONS NORMALS: inspection of chest normal and palpation of chest normal Resp: COMMON NORMALS: normal respiratory effort, no retractions, no use of accessory muscles, clear to auscultation bilaterally and percussion normal AUSCULTATION: clear to auscultation bilaterally PERCUSSION: percussion normal Cardio: COMMON NORMALS: no JVD, regular rate, regular rhythm, S1 normal heart sound, S2 normal heart sound, no gallops, no clicks, no murmurs, no rub and peripheral pulses 2+ throughout RATE: regular rate RHYTHM: regular rhythm HEART SOUNDS: S1 normal and S2 normal PERIPHERAL PULSES: pulses 2+ throughout GI: COMMON NORMALS: normal to inspection, nondistended, normoactive bowel sounds, soft to palpation, non-tender, no hepatosplenomegaly, no masses and no bruits PALPATION: Yes soft and Yes no hepatosplenomegaly : COMMON NORMALS: Yes no CVA tenderness BLADDER/KIDNEY EXAM: Yes no CVA tenderness Back/Pelvis: COMMON NORMALS: no CVA tenderness Extremity: COMMON NORMALS: normal to inspection, full ROM, normal capillary refill, no calf tenderness and no pedal edema Neuro: COMMON NORMALS: oriented x3 SENSORIUM/ORIENTATION: Yes alert MENINGEAL SIGNS: Yes no meningeal signs Skin: COMMON NORMALS: no rashes or lesions noted, no wounds, skin turgor normal, no jaundice, no petechiae and no mottling GENERAL SKIN EXAM: no rashes or lesions noted and turgor normal MDM - Psych MDM Narrative: Medical decision making narrative: 39-year-old gentleman with a psychiatric history who presents to the emergency department wanting Suboxone. He claims he had run out of his Suboxone and took some heroin. He is medically cleared, psychiatrist evaluated him and felt he was safe to be discharged home. Before I completed my assessment the patient signed out AGAINST MEDICAL ADVICE after he spoke to the psychiatrist left the facility. Lab Data: Labs: Lab Results 11/15/19 11/15/19 11/15/19 Range/Units 16:00 16:00 16:43 WBC 8.8 (4.0-10.0) 10^3/ uL RBC 5.11 (4.1-5.3) 10^6/u L Hgb 15.3 (11.7-16.6) g/dL Hct 45.9 (42.0-52.0) % MCV 89.8 (80-94) fL MCH 29.9 (28.0-34.0) pg MCHC 33.3 (30.0-36.0) g/dL RDW 12.9 (12.1-15.1) % Plt Count 224 (130-400) 10^3/c mm MPV 10.8 H (7.4-10.4) fL Neut % (Auto) 54.6 % Lymph % (Auto) 27.6 % Bourbon % (Auto) 9.3 % Eos % (Auto) 6.6 % Baso % (Auto) 0.9 % Neut # (Auto) 4.8 (1.8-7.7) 10^3/u L Lymph # (Auto) 2.4 (0.8-4.8) 10^3/u L Bourbon # (Auto) 0.8 (0.2-0.9) 10^3/u L Eos # (Auto) 0.6 (0.0-0.8) 10^3/u L Baso # (Auto) 0.1 (0.0-0.1) 10^3/u L Nucleated RBC % (a uto) 0 % Nucleated RBCs # 0.0 /100WBC Sodium (136-145) mmol/L Potassium (3.5-5.1) mmol/L Chloride (98-107) mmol/L Carbon Dioxide (22-29) mmol/L Anion Gap (5-19) BUN (6-20) mg/dL Creatinine (0.7-1.2) mg/dL GFR Calculation (90-130) mL/min Glucose (65-115) mg/dL Calculated Osmolal ity (285-295) mOsm/k g Calcium (8.5-10.5) mg/dL Total Bilirubin (0.15-1.2) mg/dL AST (0-40) U/L ALT (0-41) U/L Alkaline Phosphata se (40-130) IU/L Troponin T Baselin e (0-15) ng/mL Troponin T 120 Min telida (0-15) ng/mL Delta Troponin T (0-10) ABS# Total Protein (6.6-8.7) g/dL Albumin (3.5-5.2) g/dL Globulin (1.3-4.6) g/dL Urine Color Yellow (Yellow) Urine Appearance Clear (CLEAR) Urine pH 6.5 (5-7) Ur Specific Gravit y 1.010 (1.005-1.030) Urine Protein Neg (Negative) Urine Glucose (UA) Norm (Normal) Urine Ketones Negative (Negative) Urine Blood Neg (Negative) Urine Nitrate Negative (Negative) Urine Bilirubin Neg (NEGATIVE) Urine Urobilinogen Norm (Negative) mg/dL Ur Leukocyte La ase Negative (Negative) Salicylates (3-10) mg/dL Urine Opiates Scre en Negative (Negative) ng/mL Acetaminophen (10-30) ug/mL Ur Barbiturates Sc reen Negative (Negative) ng/mL Ur Phencyclidine S crn Negative (Negative) ng/mL Ur Amphetamines Sc reen Negative (Negative) ng/mL U Benzodiazepines Scrn Positive H (Negative) ng/mL Urine Cocaine Scre en Negative (Negative) ng/mL U Marijuana (THC) Screen Negative (Negative) ng/mL Ethyl Alcohol (0-10) mg/dL 11/15/19 11/15/19 11/15/19 Range/Units 16:43 16:43 18:53 WBC (4.0-10.0) 10^3/ uL RBC (4.1-5.3) 10^6/u L Hgb (11.7-16.6) g/dL Hct (42.0-52.0) % MCV (80-94) fL MCH (28.0-34.0) pg MCHC (30.0-36.0) g/dL RDW (12.1-15.1) % Plt Count (130-400) 10^3/c mm MPV (7.4-10.4) fL Neut % (Auto) % Lymph % (Auto) % Bourbon % (Auto) % Eos % (Auto) % Baso % (Auto) % Neut # (Auto) (1.8-7.7) 10^3/u L Lymph # (Auto) (0.8-4.8) 10^3/u L Bourbon # (Auto) (0.2-0.9) 10^3/u L Eos # (Auto) (0.0-0.8) 10^3/u L Baso # (Auto) (0.0-0.1) 10^3/u L Nucleated RBC % (a uto) % Nucleated RBCs # /100WBC Sodium 139 (136-145) mmol/L Potassium 3.9 (3.5-5.1) mmol/L Chloride 101 (98-107) mmol/L Carbon Dioxide 23 (22-29) mmol/L Anion Gap 18.9 (5-19) BUN 11 (6-20) mg/dL Creatinine 1.2 (0.7-1.2) mg/dL GFR Calculation 67.8 L (90-130) mL/min Glucose 118 H (65-115) mg/dL Calculated Osmolal ity 285 (285-295) mOsm/k g Calcium 8.8 (8.5-10.5) mg/dL Total Bilirubin 0.2 (0.15-1.2) mg/dL AST 21 (0-40) U/L ALT 35 (0-41) U/L Alkaline Phosphata se 107 (40-130) IU/L Troponin T Baselin e 9 (0-15) ng/mL Troponin T 120 Min telida 9.09 (0-15) ng/mL Delta Troponin T 0.09 (0-10) ABS# Total Protein 6.6 (6.6-8.7) g/dL Albumin 4.5 (3.5-5.2) g/dL Globulin 2.1 (1.3-4.6) g/dL Urine Color (Yellow) Urine Appearance (CLEAR) Urine pH (5-7) Ur Specific Gravit y (1.005-1.030) Urine Protein (Negative) Urine Glucose (UA) (Normal) Urine Ketones (Negative) Urine Blood (Negative) Urine Nitrate (Negative) Urine Bilirubin (NEGATIVE) Urine Urobilinogen (Negative) mg/dL Ur Leukocyte La ase (Negative) Salicylates < 0.3 L (3-10) mg/dL Urine Opiates Scre en (Negative) ng/mL Acetaminophen < 5.0 L (10-30) ug/mL Ur Barbiturates Sc reen (Negative) ng/mL Ur Phencyclidine S crn (Negative) ng/mL Ur Amphetamines Sc reen (Negative) ng/mL U Benzodiazepines Scrn (Negative) ng/mL Urine Cocaine Scre en (Negative) ng/mL U Marijuana (THC) Screen (Negative) ng/mL Ethyl Alcohol 169 H (0-10) mg/dL Discharge Plan Discharge Patient Disposition: Left Against Medical Advice Clinical Impression: Depression, Substance abuse, Drug-seeking behavior Prescriptions: No Action clonidine HCl 0.1 mg Tablet 0.2 mg PO BEDTIME Qty: 30 RF: 2 quetiapine 300 mg Tablet 600 mg PO BEDTIME Qty: 60 RF: 2 levetiracetam 500 mg Tablet 250 mg PO BID Qty: 60 RF: 2 citalopram 20 mg Tablet 20 mg PO BEDTIME Qty: 30 RF: 3 buprenorphine-naloxone [Suboxone] 4-1 mg Film 1 ea sublingual BID Qty: 28 RF: 0 creatine monohydrate 5,000 mg Powder In Packet See Rx Instructions .ROUTE .COMPLEX RF: 0 aspirin 81 mg Tablet,Delayed Release (Dr/Ec) 81 mg PO DAILY RF: 0 Interventions: ED Discharge Assessment Last Done: 11/15/19 20:52 ED Charges Last Done: 11/15/19 20:52 Discharge Date/Time: 11/15/19 20:54 Coding Level of Care Code ED Sales Planning Coordinator for Edmond Hwang
== END 2019-11-15 20:54 | disposition left against medical advice (07) ==
PROVIDERS: Emergency Provider Family Medicine
DX: F32.9 Major depressive disorder, single episode, unspecified (principal); F19.10 Other psychoactive substance abuse, uncomplicated; Z76.5 Malingerer [conscious simulation]; Z79.82 Long term (current) use of aspirin; Z53.21 Procedure and treatment not carried out due to patient leaving prior to being seen by health care provider; F17.210 Nicotine dependence, cigarettes, uncomplicated
CPT/HCPCS: 12345; 36415; 71045; 80053; 80306; 80307; 81003; 84484; 85025; 93005; 99284

== ENCOUNTER → 2019-12-02 14:41 | Outpatient (BNVA) | payer MEDICAID, SELFPAY | PROVIDERS: Visit Provider Psychiatry & Neurology Psychiatry | DX: F60.2 Antisocial personality disorder (principal); F11.20 Opioid dependence, uncomplicated | CPT/HCPCS: 80307; 99204 ==

== ENCOUNTER → 2019-12-17 08:06 | Outpatient (BNVA) | payer MEDICAID, SELFPAY | PROVIDERS: Visit Provider Psychiatry & Neurology Psychiatry | DX: F60.2 Antisocial personality disorder (principal); F11.20 Opioid dependence, uncomplicated; F32.9 Major depressive disorder, single episode, unspecified; F90.2 Attention-deficit hyperactivity disorder, combined type | CPT/HCPCS: 99214 ==

== ENCOUNTER 2020-01-07 22:40 | Observation (INO) | payer MEDICAID, SELFPAY ==
[2020-01-07 22:41] VITALS: BP 131/79; PULSE 111; RESP 18; TEMP 36.7; O2SAT 96; BMI 30.7
--- NOTE | 2020-01-07 22:48 | W.ED.PSYCH ---
HPI - Psych General: Chief Complaint: Psychiatric Symptoms Stated Complaint: SI Time Seen by Provider: 01/07/20 22:44 History of Present Illness: HPI Narrative: Patient is a 39-year-old male who comes to the ED with SI. Patient has a past medical history of seizure disorder, alcoholism, anxiety, bipolar disorder, depression, antisocial personality disorder, substance abuse and past suicidal attempt. Patient says he is a prior opioid addict for the past several years he is not taking Suboxone to treat his addiction. He was last seen by Dr. Joyner on 12/16 and he was given a 30-day prescription for Suboxone. Patient says he has run out of Suboxone about a week ago and reports increasing depression, and anxiety. He says he is having trouble sleeping and does endorse having some suicidal ideation recently. He has been trying to work out more in the last week to help increase his mood, but it helping enough. Patient says the next appointment with behavioral health doctor is on January 15. Patient said he is worried that if he goes home tonight he will overdose on heroin. Associated symptoms: Reports depression and suicidal ideation Review of Systems Const: Denies: fever(s), chills or fatigue Eyes: Denies: change in vision or eye discomfort ENMT: Denies: throat pain, odynophagia, nasal discharge or nasal congestion Card: Denies: chest pain, palpitations, edema, swelling of feet/ankles, dyspnea on exertion or orthopnea Resp: Denies: dyspnea, productive cough or non-productive cough GI: Denies: abdominal pain, nausea, vomiting, diarrhea, constipation or hematochezia : Denies: flank pain, difficulty urinating, dysuria or hematuria Musc: Denies: neck pain, back pain or extremity swelling Skin/Breast: Denies: rash or new lesions Neuro: Denies: headache(s), numbness in extremities or weakness in extremities Psych: Reports: anxiety, depression, sleeping less and suicidal ideation PFSH ED PFSH: Medical History Alcoholism Anxiety Bipolar disorder Chronic back pain Depression GI bleed Hepatitis IBS (irritable bowel syndrome) Intermittent explosive disorder PTSD (post-traumatic stress disorder) Rectal bleed Seizure disorder Substance abuse Suicidal ideation Suicide attempt Surgical History History of back surgery Social History Smoking and tobacco status: smoker, details unknown Current gender identity: Male Physical Exam Const: COMMON NORMALS: no acute distress, patient oriented x3, healthy appearing and alert GENERAL APPEARANCE: cooperative, comfortable and anxious HENMT: COMMON NORMALS: normocephalic HEAD & SCALP: normocephalic MOUTH: Normal oral and palatal mucosa present THROAT: posterior oropharynx normal and uvula midline Neck/C-Spine: COMMON NORMALS: supple GENERAL: Yes normal visual inspection Resp: COMMON NORMALS: normal respiratory effort, No retractions, No use of accessory muscles and clear to auscultation bilaterally AUSCULTATION: clear to auscultation bilaterally Cardio: COMMON NORMALS: regular rate, regular rhythm, S1 normal heart sound present, S2 normal heart sound present, No gallops present (Cardio), No clicks present (Cardio), No murmurs present (Cardio) and Peripheral pulses 2+ throughout RATE: regular rate RHYTHM: regular rhythm HEART SOUNDS: S1 normal heart sound present and S2 normal heart sound present PERIPHERAL PULSES: Peripheral pulses 2+ throughout GI: COMMON NORMALS: Normal to inspection, nondistended, normoactive bowel sounds present, Soft to palpation, non-tender and no masses PALPATION: Yes Soft to palpation : COMMON NORMALS: Yes no CVA tenderness BLADDER/KIDNEY EXAM: Yes no CVA tenderness Back/Pelvis: COMMON NORMALS: no CVA tenderness Neuro: COMMON NORMALS: patient oriented x3 and moves all extremities SENSORIUM/ORIENTATION: Yes alert Psych: COMMON NORMALS: Normal thought process present, cooperative and speech normal APPEARANCE: Yes grossly normal ATTITUDE: Yes calm and Yes engaged ACTIVITY/MOTOR BEHAVIOR: Yes appropriate eye contact SPEECH: Yes normal speech and Yes excessive MOOD & AFFECT: Yes elevated mood THOUGHT PROCESS: Normal thought process present THOUGHT CONTENT: Yes Normal thought content present and Yes Suicidality present (He said he will OD on heroin tonight if he goes home) ATTENTION/CONCENTRATION: Yes attention grossly intact and Yes concentration grossly intact MEMORY/COGNITION: Yes memory grossly intact INSIGHT: Fair insight present (Psych) JUDGEMENT: Fair judgement present (Psych) Skin: COMMON NORMALS: no rashes or lesions noted GENERAL SKIN EXAM: no rashes or lesions noted and dry skin MDM - Psych MDM Narrative: Medical decision making narrative: Patient is a 39-year-old male who comes to the ED with SI. Patient also explained that he has a history of opioid abuse and currently takes Suboxone. Patient says he is ran out of his Suboxone about a week ago and is having worsening anxiety, depression. I contacted Dr. Erwin about patient's case and he did a teleconference with patient to talk with him before deciding if he wants patient to be admitted to NPU or not. Dr. Erwin said he would accept patient being admitted into the NPU. Dr. Black will be placing the admitting orders. Lab Data: Attestation: I reviewed the patient's lab results. Labs: Lab Results 01/07/20 01/07/20 Range/Units 22:57 22:57 WBC 8.7 (4.0-10.0) 10^3/ uL RBC 4.83 (4.1-5.3) 10^6/u L Hgb 14.4 (11.7-16.6) g/dL Hct 43.3 (42.0-52.0) % MCV 89.6 (80-94) fL MCH 29.8 (28.0-34.0) pg MCHC 33.3 (30.0-36.0) g/dL RDW 13.2 (12.1-15.1) % Plt Count 216 (130-400) 10^3/c mm MPV 10.2 (7.4-10.4) fL Neut % (Auto) 64.5 % Lymph % (Auto) 23.5 % [place] % (Auto) 10.1 % Eos % (Auto) 0.7 % Baso % (Auto) 0.7 % Neut # (Auto) 5.6 (1.8-7.7) 10^3/u L Lymph # (Auto) 2.0 (0.8-4.8) 10^3/u L [place] # (Auto) 0.9 (0.2-0.9) 10^3/u L Eos # (Auto) 0.1 (0.0-0.8) 10^3/u L Baso # (Auto) 0.1 (0.0-0.1) 10^3/u L Nucleated RBC % (a uto) 0 % Nucleated RBCs # 0.0 /100WBC Sodium 144 (136-145) mmol/L Potassium 3.8 (3.5-5.1) mmol/L Chloride 103 (98-107) mmol/L Carbon Dioxide 24 (22-29) mmol/L Anion Gap 20.8 H (5-19) BUN 11 (6-20) mg/dL Creatinine 1.0 (0.7-1.2) mg/dL GFR Calculation 83.6 L (90-130) mL/min Glucose 91 (65-115) mg/dL Calculated Osmolal ity 294 (285-295) mOsm/k g Calcium 9.5 (8.5-10.5) mg/dL Total Bilirubin 0.3 (0.15-1.2) mg/dL AST 29 (0-40) U/L ALT 29 (0-41) U/L Alkaline Phosphata se 96 (40-130) IU/L Total Protein 7.8 (6.6-8.7) g/dL Albumin 4.7 (3.5-5.2) g/dL Globulin 3.1 (1.3-4.6) g/dL TSH 0.97 (0.27-4.20) uIU/ mL Salicylates < 0.3 L (3-10) mg/dL Acetaminophen < 5.0 L (10-30) ug/mL Ethyl Alcohol 32 H (0-10) mg/dL Discharge Plan Discharge Patient Disposition: Admitted As Inpatient Admit Provider: Lewis Erwin Discharge Date/Time: 01/08/20 02:43 Coding Level of Care Code ED Collection Systems Worker for g Fwd Exam Comprehensive
[2020-01-07 23:07] LABS: Basophils # 0.1 10^3/uL (0.0-0.1); Basophils % 0.7 %; Eosinophils # 0.1 10^3/uL (0.0-0.8); Eosinophils % 0.7 %; Hematocrit 43.3 % (42.0-52.0); Hemoglobin 14.4 g/dL (11.7-16.6); Lymphocytes % 23.5 %; Mean Corpuscular HGB Conc 33.3 g/dL (30.0-36.0); Mean Corpuscular Hemoglobin 29.8 pg (28.0-34.0); Mean Corpuscular Volume 89.6 fL (80-94); Mean Platelet Volume 10.2 fL (7.4-10.4); Monocytes # 0.9 10^3/uL (0.2-0.9); Monocytes % 10.1 %; Neutrophils # 5.6 10^3/uL (1.8-7.7); Neutrophils % 64.5 %; Nucleated Red Blood Cells % 0 %; Platelet Count 216 10^3/cmm (130-400); Red Blood Count 4.83 10^6/uL (4.1-5.3); Red Cell Distribution Width 13.2 % (12.1-15.1); White Blood Count 8.7 10^3/uL (4.0-10.0)
[2020-01-07] MEDS: sodium chloride 0.9% 1,000 ML 999 ML IV (23:30)
[2020-01-07] MEDS: ketorolac 30 mg/mL INJ IVP (23:30)
[2020-01-07 23:40] LABS: Alanine Aminotransferase 29 U/L (0-41); Albumin Level 4.7 g/dL (3.5-5.2); Alcohol Level 32 mg/dL (0-10); Alkaline Phosphatase 96 IU/L (40-130); Anion Gap 20.8 (5-19); Aspartate Amino Transferase 29 U/L (0-40); Blood Urea Nitrogen 11 mg/dL (6-20); Calcium 9.5 mg/dL (8.5-10.5); Carbon Dioxide 24 mmol/L (22-29); Chloride 103 mmol/L (98-107); Globulin 3.1 g/dL (1.3-4.6); Glomerular Filtration Rate 83.6 mL/min (90-130); Glucose 91 mg/dL (65-115); Osmolality Calculated 294 mOsm/kg (285-295); Potassium 3.8 mmol/L (3.5-5.1); Sodium 144 mmol/L (136-145); Thyroid Stimulating Hormone 0.97 uIU/mL (0.27-4.20); Total Bilirubin 0.3 mg/dL (0.15-1.2); Total Protein 7.8 g/dL (6.6-8.7)
[2020-01-07 23:41] LABS: Acetaminophen < 5.0 ug/mL (10-30); Salicylate < 0.3 mg/dL (3-10)
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
[2020-01-08 02:34] VITALS: BP 171/131; PULSE 115; RESP 28; TEMP 36.8; O2SAT 97
[2020-01-08] MEDS: hyDROXYzine 25 mg Capsule 50 MG PO (02:53)
--- NOTE | 2020-01-08 03:20 | PC.NURSE ---
VISTARIL PT REQUESTING SOMETHING FOR ANXIETY. VISTARIL 50 MG ADMINISTERED PO. WILL MONITOR FOR MEDICATION EFFECTIVENESS.
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
[2020-01-08] MEDS: haloperidol 5 mg Tablet PO (05:48)
--- NOTE | 2020-01-08 05:50 | PC.NURSE ---
PRN HALDOL PT BECOMING INCREASINGLY AGITATED. HALDOL 5 MG ADMINISTERED. WILL MONITOR FOR MEDICATION EFFECTIVENESS.
[2020-01-08 06:00] VITALS: BP 184/126; PULSE 103; RESP 28; TEMP 36.8; O2SAT 97
--- NOTE | 2020-01-08 07:59 | PC.NURSE ---
PATIENT WANTING TO LEAVE AMA, STATES I JUST WANT TO SEE DR. COELLO AND GET MY MEDS AND STUFF TODAY, DONT WANNA BE HERE ALL DAY. REFUSES TO GIVE URINE FOR A UDS STATES I GAVE ENOUGH IN ER. PHYSICIAN NOTIFIED. WILL CONT TO MONITOR, SUPPORT AND REDIRECT NEEDED
[2020-01-08] MEDS: levETIRAcetam 500 mg Tablet 250 MG PO (08:22)
[2020-01-08] MEDS: cloNIDine 0.1 mg Tablet 0.2 MG PO (08:22)
[2020-01-08] MEDS: citalopram 20 mg Tablet PO (10:30)
[2020-01-08] MEDS: buprenorphine-naloxone 4-1 mg Film 2 EACH SUBLINGUAL (10:31)
--- NOTE | 2020-01-08 11:27 | P.HP_ITS ---
Providers/Chief Complaint Admitting Physician: Lewis Erwin MD Chief Complaint: SI HPI NPU History of Present Illness Kyle Cartwright is a 39 year old male It appears that ultimately Kyle thought the situation through an reconsidered and identified that coming in and allowing us to call Dr. Joyner made the most sense overall in his situation. We will work with the nursing staff to reach out to Dr. Joyner and verify the circumstances with the medication and hopefully allow him to make a decision as to how he would have us proceed. Addendum Dictated By:Lewis Erwin MD Addendum Signed By:Signed Date/Time:01/08/20219 Addendum Cosigned By: Providers/Reason for Consult Consulting Physican/Specialty*: Lewis Erwin MD. Psychiatry. Reason for Consult*: Evaluate for appropriateness for admission. Requesting Physcian: Prashant Jensen Attending Physician: Lewis Erwin MD Psych Consult HPI History of Present Illness Kyle aCrtwright is a 39 year old male who presented to the emergency room most likely has multiple times in the past with focus on obtaining Suboxone because of some issue that has arisen. Psychiatry was consulted to identify a safe discharge plan. He reports that he saw his doctor at [facility] and he was placed on 16 mg daily of Suboxone sublingually. He reports that the doctor gave him verbal permission to take three 8/2 mg Suboxone strips a day if he was strug gling with his cravings or withdrawal. He reports that he did that and then call the doctor's office and was advised he needed to come in but he reports he was unable to get there and came here with the plan initially to be admitted. However we discussed the fact that we would not start his Suboxone without confirmation that Dr. Joyner had authorized such a behavior. After different attempts at negotiations that would lead to him getting a dose of Suboxone sooner rather than later he requested to be able to go home and tomorrow he would seek out his provider. Excerpt from his last evaluation is included below as there have been no substantive changes. We discussed the risks, benefits and alternatives of the different plans and he understood and agreed to proceed as is documented in this note. Per his 11/15/19 Eval: History of Present Illness Kyle Cartwright is a 39 year old male who presented to the emergency room requesting Suboxone. He endorsed running out of his medication and being in withdrawal having some use of other opiates to manage said withdrawal. There had been some mention suicidality, but none mentioned to the attending physician. Psychiatric consult for evaluation for safety for discharge versus admission was requested. Kyle is well-known to this investment underwriter from previous presentations all of which surrounded him not having access to Suboxone. After a brief conversation about the fact that the last time he was seen we agreed that we would not go down this path again of reconnecting him with Suboxone. We agreed that we would not support his lack of follow-through by baling him out so to speak. He agreed and accepted that he would have to go and follow through to get the Suboxone treatment he reports is successful for him. Below see enclosed excerpt from his last evaluation as he denies any substantive changes to his psychosocial circumstances. Per his last [facility] [place]/19: History of Present Illness Kyle Cartwright is a 39 year old male who presented to the emergency room yesterday after a reported episode of confusion and a fall that he says resulted in him having a seizure. Initially the evaluation centered around that but then later he became very tearful talking about the of his best friend and his girlfriend also succumbing to addiction. He was really upset about the fact that his Suboxone had run out and he was now struggling with sobriety and endorsed suicidal thoughts and was intermittently aggressive and acting out and was unable to contract for safety. He got to the unit and acclimated to the individual group and family therapies provided. We were able to figure out some options to get him an appointment within 2 weeks. We agreed that we will give him a 2 week supply of Suboxone and that we would not do that again unless he has actually connected with outpatient provider. He reports that he had tried to get connected with a warrant given appointments for 4-5 weeks so the 2 week supply previously had was not helpful. Once we were able to set those things up he was denying all lethality and endorsed a desire to go home. Excerpts from consult from yesterday is included below for some recent historical data. Psychiatric history: He's had over 20 hospitalizations here and is unclear if these constellation of other places. He's been on multiple medications. Substance abuse history: He is struggling with opiate and alcohol addiction for some time is currently on agonist therapy for his opiates. Psychosocial history: He currently lives with his mother reports that they have a good relationship and sometimes she is a challenge for him. He also reports having children that he is responsible for. No recent history of working. Per [facility] consult yesterday: Psych Consult HPI History of Present Illness Kyle Cartwright is a 39 year old male Kyle presents today after a significantly chaotic presentation to the emergency room wherein he presented with reports that he had fallen and hit his head and had a seizure, and that he was currently postictal. Full evaluation left significant questions as to whether that story was accurate. He initially had endorsed that he wanted to go to the neuropsych unit, however, after some time passed, he reversed position and said he did not want to go to the neuropsych unit. He reported that he was going to get aggressive with one of the security guards and, at one point, a code was called because of how aggressive he was being. I was called in to consult on the case and began discussing his situation. He reported he was struggling with his relationship with his mother and that she was giving him a hard time. He also reported that he was struggling with his recovery because he was on Suboxone and then was not able to get Suboxone, and he is just really feeling like everything has gone the wrong way in his life, and he just does not know if it is worth it. We discussed his issue in getting a Suboxone treatment facility. In fact, I contacted some of the social workers and was just looking at what our options were. He was tearful at times and was somewhat ambivalent about the actual level of lethality that he was feeling. We discussed the risks, benefits, and alternatives of admission versus discharge, and he understood and agreed to pro ceed as is documented in this note. Below you will find the discharge summary from his last evaluation with Dr. Jeter; within that he noted that there had not been any changes in his psychosocial circumstances. Per his DC summary from August: Hospital Course Discharge Summary Chief complaint: I've been doing heroin off and on for the past 3 years but really heavily for the past month. History of present illness:Kyle Cartwright is a 38 year old male He reports that he has been doing heroin and is ashamed about it. He has not told anybody that revealed one how frequently he was shooting heroin. He says using very heavily in the past month and is in heroin withdrawal at this time. he reports using Clean needles and multiple times a day. He says he has been to a rehabilitation program and was treated successfully with Suboxone. He has not had any heroin in the last 4 days and is currently in heroin withdrawal. He was admitted on the strength of 96 hour affidavit filed by his mother. The patient and his mother apparently have a very close relationship as they live together. Mother states that he is not medically stable. He has been verbally abusive to she and his and stole money from her. He has threatened his ex-girlfriend. Mother makes no mention is heroin. Patient states that he has hit his heroin is his mother is ashamed of his behavior. He says that this is going to bring her heart and that they will have a very difficult time with relationship when she finds out that he has been using. He otherwise denies psychiatric symptoms. He had a friend who from a heroin overdose. He specifically does not want to . He denies any suicidal or homicidal threats. He is not angry at his mother for filing affidavit is embarrassed that he made statements that she says that he made. Diagnoses: Opiate dependence Opiate withdrawal Major Depression ? recurrent, currently in remission Antisocial personality traits Seizure disorder?by history, type unknown Assessment: The patient presents as a 38-year-old man in the throes of heroin addiction and emotional distress over the fact that it is having on his family. The intent at this time is to treat him for opiate withdrawal and assess potential for entry into a rehabilitation program. There is no indication of imminent risk to self or others as evidenced by information in this interview and his past mental health treatment. He will be restarted on previously effective medications and treated for symptoms of opiate withdrawal. Treatment plan: Due to the psychiatric conditions and treatment listed in the Assessment and Plan - the patient requires continued hospitalization. Will provide a safe and therapeutic environment for patient.. Will continue inpatient treatment to allow for medication adjustment and monitoring. Will continue q15 min safety checks. The patient presents a 38-year-old man in the throes of heroin addiction and emotional distress over the fact that it is having on his family. The intent at this time is to treat him for opiate withdrawal and assess potential for entry into a rehabilitation program. There is no indication of imminent risk to self or others as evidenced by information in this interview and his past mental health treatment. He will be restarted on previously effective medications and treated for symptoms of opiate withdrawal. Restart Keppra 250 mg twice a day, Suboxone at 4/1 milligram twice a day, clonidine 0.1 mg 3 times a day, and Seroquel 300 mg at bedtime. Hospital day #3:Will continue current medications and monitor for medication side effects. Suboxone 4/1 twice a day, Seroquel 300 mg at bedtime, Keppra 250 mg twice a day, and clonidine 0.1 mg 3 times a day. HD#4: Pt continues to show signs of hypomania though he denies subjective sense of racing thoughts, impulsivity, hypersexuality. Will await to have infomraiton from collateral sources to make diagnosis. PLAN: increase Seroquel to 600 mg at bedtime and reduce clonidine. HD#5: Patient reports that he is responding well to current medication treatment. He has a great number of questions regarding the rehab program he wants. All of the questions are reasonable but his inability to let things go indicate his degree of perplexity. His mother is also present and we discussed his pattern of moods. She describes him as having elevated episodes and low episodes. But none reached the level of bipolar karla. He does not go days without sleep. He is not impulsive when he is elevated. He does become violent during hsi down phases which would be consistent with clinical depression. On the other hand, she is unable to describe these in absence of his substance use. PLAN: add Celexa 20 mg at bedtime and change clonidine to 0.2 mg at bedtime Mental status examination: Is an overweight versus obese white male with adequate rest, grooming and eye contact. No abnormal movements cooperative with exam in no acute distress. Speech was normal rate and volume. Mood described as better affect congruent. Thought process organized. Thought content: Patient denied any suicidal or homicidal ideations, there were no delusions reportedly noted, he denied any auditory or visual hallucinations. Attention and concentration were intact and memory was mostly reliable but none were formally tested. He is alert and oriented ?3. Insight and judgment are limited but improving. Per his 01/07/2020 consult: Addendum: It appears that ultimately Kyle thought the situation through an reconsidered and identified that coming in and allowing us to call Dr. Joyner made the most sense overall in his situation. We will work with the nursing staff to reach out to Dr. Joyner and verify the circumstances with the medication and hopefully allow him to make a decision as to how he would have us proceed. Addendum Dictated By:Lewis Erwin MD Addendum Signed By:Signed Date/Time:01/08/20219 Addendum Cosigned By: Providers/Reason for Consult Consulting Physican/Specialty*: Lewis Erwin MD. Psychiatry. Reason for Consult*: Evaluate for appropriateness for admission. Requesting Physcian: Prashant Jensen Attending Physician: Lewis Erwin MD Psych Consult HPI History of Present Illness Kyle Cartwright is a 39 year old male who presented to the emergency room most likely has multiple times in the past with focus on obtaining Suboxone because of some issue that has arisen. Psychiatry was consulted to identify a safe discharge plan. He reports that he saw his doctor at [facility] and he was placed on 16 mg daily of Suboxone sublingually. He reports that the doctor gave him verbal permission to take three 8/2 mg Suboxone strips a day if he was struggling with his cravings or withdrawal. He reports that he did that and then call the doctor's office and was advised he needed to come in but he reports he was unable to get there and came here with the plan initially to be admitted. However we discussed the fact that we would not start his Suboxone without confirmation that Dr. Joyner had authorized such a behavior. After different attempts at negotiations that would lead to him getting a dose of Suboxone sooner rather than later he requested to be able to go home and tomorrow he would seek out his provider. Excerpt from his last evaluation is included below as there have been no substantive changes. We discussed the risks, benefits and alternatives of the different plans and he understood and agreed to proceed as is documented in this note. Per his 11/15/19 Eval: History of Present Illness Kyle Cartwright is a 39 year old male who presented to the emergency room requesting Suboxone. He endorsed running out of his medication and being in withdrawal having some use of other opiates to manage said withdrawal. There had been some mention suicidality, but none mentioned to the attending physician. Psychiatric consult for evaluation for safety for discharge versus admission was requested. Kyle is well-known to this investment underwriter from previous presentations all of which surrounded him not having access to Suboxone. After a brief conversation about the fact that the last time he was seen we agreed that we would not go down this path again of reconnecting him with Suboxone. We agreed that we would not support his lack of follow-through by baling him out so to speak. He agreed and accepted that he would have to go and follow through to get the Suboxone treatment he reports is successful for him. Below see enclosed excerpt from his last evaluation as he denies any substantive changes to his psychosocial circumstances. Per his last [facility] [place] 10/10/19: History of Present Illness Kyle Cartwright is a 39 year old male who presented to the emergency room yesterday after a reported episode of confusion and a fall that he says resulted in him having a seizure. Initially the evaluation centered around that but then later he became very tearful talking about the of his best friend and his girlfriend also succumbing to addiction. He was really upset about the fact that his Suboxone had run out and he was now struggling with sobriety and endorsed suicidal thoughts and was intermittently aggressive and acting out and was unable to contract for safety. He got to the unit and acclimated to the individual group and family therapies provided. We were able to figure out some options to get him an appointment within 2 weeks. We agreed that we will give him a 2 week supply of Suboxone and that we would not do that again unless he has actually connected with outpatient provider. He reports that he had tried to get connected with a warrant given appointments for 4-5 weeks so the 2 week supply previously had was not helpful. Once we were able to set those things up he was denying all lethality and endorsed a desire to go home. Excerpts from consult from yesterday is included below for some recent historical data. Psychiatric history: He's had over 20 hospitalizations here and is unclear if these constellation of other places. He's been on multiple medications. Substance abuse history: He is struggling with opiate and alcohol addiction for some time is currently on agonist therapy for his opiates. Psychosocial history: He currently lives with his mother reports that they have a good relationship and sometimes she is a challenge for him. He also reports having children that he is responsible for. No recent history of working. Per [facility] consult yesterday: Psych Consult HPI History of Present Illness Kyle Cartwright is a 39 year old male Kyle presents today after a significantly c haotic presentation to the emergency room wherein he presented with reports that he had fallen and hit his head and had a seizure, and that he was currently postictal. Full evaluation left significant questions as to whether that story was accurate. He initially had endorsed that he wanted to go to the neuropsych unit, however, after some time passed, he reversed position and said he did not want to go to the neuropsych unit. He reported that he was going to get aggressive with one of the security guards and, at one point, a code was called because of how aggressive he was being. I was called in to consult on the case and began discussing his situation. He reported he was struggling with his relationship with his mother and that she was giving him a hard time. He also reported that he was struggling with his recovery because he was on Suboxone and then was not able to get Suboxone, and he is just really feeling like everything has gone the wrong way in his life, and he just does not know if it is worth it. We discussed his issue in getting a Suboxone treatment facility. In fact, I co ntacted some of the social workers and was just looking at what our options were. He was tearful at times and was somewhat ambivalent about the actual level of lethality that he was feeling. We discussed the risks, benefits, and alternatives of admission versus discharge, and he understood and agreed to proceed as is documented in this note. Below you will find the discharge summary from his last evaluation with Dr. Jeter; within that he noted that there had not been any changes in his psychosocial circumstances. Per his DC summary from August: Hospital Course Discharge Summary Chief complaint: I've been doing heroin off and on for the past 3 years but really heavily for the past month. History of present illness:Kyle Cartwright is a 38 year old male He reports that he has been doing heroin and is ashamed about it. He has not told anybody that revealed one how frequently he was shooting heroin. He says using very heavily in the past month and is in heroin withdrawal at this time. he reports using Clean needles and multiple times a day. He says he has been to a rehabilitati on program and was treated successfully with Suboxone. He has not had any heroin in the last 4 days and is currently in heroin withdrawal. He was admitted on the strength of 96 hour affidavit filed by his mother. The patient and his mother apparently have a very close relationship as [facility]. Mother states that he is not medically stable. He has been verbally abusive to she and his and stole money from her. He has threatened his ex- girlfriend. Mother makes no mention is heroin. Patient states that he has hit his heroin is his mother is ashamed of his behavior. He says that this is going to bring her heart and that they will have a very difficult time with relationship when she finds out that he has been using. He otherwise denies psychiatric symptoms. He had a friend who from a heroin overdose. He specifically does not want to . He denies any suicid al or homicidal threats. He is not angry at his mother for filing affidavit is embarrassed that he made statements that she says that he made. Diagnoses: Opiate dependence Opiate withdrawal Major Depression ? recurrent, currently in remission Antisocial personality traits Seizure disorder?by history, type unknown Assessment: The patient presents as a 38-year-old man in the throes of heroin ad diction and emotional distress over the fact that it is having on his family. The intent at this time is to treat him for opiate withdrawal and assess potential for entry into a rehabilitation program. There is no indication of imminent risk to self or others as evidenced by information in this interview and his past mental health treatment. He will be restarted on previously effective medications and treated for symptoms of opiate withdrawal. Treatment plan: Due to the psychiatric conditions and treatment listed in the Assessment and Plan - the patient requires continued hospitalization. Will provide a safe and therapeutic environment for patient.. Will continue inpatient treatment to allow for medication adjustment and monitoring. Will continue q15 min safety checks. The patient presents a 38-year-old man in the throes of heroin addiction and emotional distress over the fact that it is having on his family. The intent at this time is to treat him for opiate withdrawal and assess potential for entry into a rehabilitation program. There is no indication of imminent risk to self or others as evidenced by information in this interview and his past mental health treatment. He will be restarted on previously effective medications and treated for symptoms of opiate withdrawal. Restart Keppra 250 mg twice a day, Suboxone at 4/1 milligram twice a day, clonidine 0.1 mg 3 times a day, and Seroquel 300 mg at bedtime. Hospital day #3:Will continue current medications and monitor for medication side effects. Suboxone 4/1 twice a day, Seroquel 300 mg at bedtime, Keppra 250 mg twice a day, and clonidine 0.1 mg 3 times a day. HD#4: Pt continues to show signs of hypomania though he denies subjective sense of racing thoughts, impulsivity, hypersexuality. Will await to have infomraiton from collateral sources to make diagnosis. PLAN: increase Seroquel to 600 mg at bedtime and reduce clonidine. HD#5: Patient reports that he is responding well to current medication treatment . He has a great number of questions regarding the rehab program he wants. All of the questions are reasonable but his inability to let things go indicate his degree of perplexity. His mother is also present and we discussed his pattern of moods. She describes him as having elevated episodes and low episodes. But none reached the level of bipolar karla. He does not go days without sleep. He is not impulsive when he is elevated. He does become violent during hsi down phases which would be consi stent with clinical depression. On the other hand, she is unable to describe these in absence of his substance use. PLAN: add Celexa 20 mg at bedtime and change clonidine to 0.2 mg at bedtime Mental status examination: Is an overweight versus obese white male with adequate rest, grooming and eye c ontact. No abnormal movements cooperative with exam in no acute distress. Speech was normal rate and volume. Mood described as better affect congruent. Thought process organized. Thought content: Patient denied any suicidal or homicidal ideations, there were no delusions reportedly noted, he denied any auditory or visual hallucinations. Attention and concentration were intact and memory was mostly reliable but none were formally tested. He is alert and oriented ?3. Insight and judgment are limited but improving. Meds NPU Home Medications Medication Instructions Recorded Confirmed Last Taken Type levetiracetam 250 mg PO BID #60 tab 08/25/19 01/08/20 1 Week Ago Rx ~01/01/20 creatine monohydrate See Rx Instructions .ROUTE .COMPLEX 10/09/19 12/21/19 11/15/19 History aspirin 81 mg PO DAILY 11/15/19 12/21/19 11/15/19 History citalopram 20 mg tablet 20 mg PO BEDTIME #30 tab 12/02/19 01/08/20 1 Week Ago Rx ~01/01/20 quetiapine 300 mg tablet 600 mg PO BEDTIME #60 tab 12/02/19 01/08/20 1 Week Ago Rx ~01/01/20 clonidine HCl 0.2 mg PO TID 01/08/20 01/08/20 1 Week Ago History ~01/01/20 buprenorphine 8 mg-naloxone 2 mg 3 film SUBLINGUAL DAILY #45 each 01/13/20 01/13/20 Unknown Rx sublingual film Allergies Allergy/AdvReac Type Severity Reaction Status Date / Time No Known Allergies Allergy Verified 12/21/19 12:25 PFSH NPU PFSH: Medical History Alcoholism Anxiety Bipolar disorder Chronic back pain Depression GI bleed Hepatitis IBS (irritable bowel syndrome) Intermittent explosive disorder PTSD (post-traumatic stress disorder) Rectal bleed Seizure disorder Substance abuse Suicidal ideation Suicide attempt Surgical History History of back surgery Social History Smoking and tobacco status: smoker, details unknown Current gender identity: Male Mental Status Exam MSE Comments: This is an overweight versus obese, white male, with adequate dress, grooming, and eye contact. No abnormal movements, except for mild psychomotor retardation. Cooperative with exam in no acute distress. Speech was normal rate and volume. Mood described as thankful; affect . Thought process, organized. Thought content: patient denied any suicidal or homicidal ideation, there were no delusions reported or noted, patient denied any auditory or visual hallucinations. Attention, concentration, and memory appear intact but were not formally tested. He is alert and oriented times three. Insight and judgment are limited, but improving.Impulse control limited. Vitals/I&O/Wt Last Vital Signs Temp 98.2 F 01/08/20 06:00 Pulse 103 H 01/08/20 06:00 Resp 28 H 01/08/20 06:00 BP 184/126 01/08/20 06:00 Pulse Ox 97 01/08/20 06:00 Weight last 48 hrs Weight 120.656 kg Data NPU : 01/07/20 22:57 01/07/20 22:57 A&P Assessment and plan (1) Opioid use disorder, severe, in early remission, on maintenance therapy, dependence: This is a 39 year old, white male, with mood dysregulation secondary to antisocial personality disorder, opiate use disorder, severe, depressive disorder, unspecified, and anxiety, who presents again reporting that he is out of Suboxone and wanting to consider the inpatient unit for current care. He agreed to admission with a plan to contact his outpatient doctor and attempt to reconcile the situation. 1. Continue current medication. Give Suboxone 8/2 mg x 1 prior to discharge. 2. Continue to 15-minute checks for safety. 3. Encouraged him to embrace sober living treatment at the highest level to which she is willing to commit. 4. No credible lethality so we will discharge to home. Status: Acute (2) Opiate use: Status: Acute (3) Antisocial personality disorder: Status: Acute (4) Depression: Status: Acute Qualifiers: Depression Type: unspecified Qualified Code(s): F32.9 - Major depressive disorder, single episode, unspecified (5) Malingering: Status: Acute Involuntary Hold Information 96 Hour Hold: 96 Hour Involuntary Admission: No Attestations NPU Medical Necessity Statement*: Inpatient hospitalization is no longer medically necessary or the clinically appropriate intervention at this time. Plan for managing his medication and this acute crisis [facility]. He is able to contract for safety and presents no credible lethality. Given his recent presentations malingering asked to be a diagnosis noted. We will discharge to home. Coding Level of Care Code Acute Pipe Setter for Edmond Hwang Diagnoses Opioid use disorder, severe, in early remission, on maintenance therapy, dependence F11.21 Opiate use F11.90 Antisocial personality disorder F60.2 Depression F32.9 Depression Type: unspecified Malingering Z76.5
--- NOTE | 2020-01-08 11:37 | PM.NDC ---
Reason for Visit Reason for Visit: SI Brief History: Kyle Cartwright is a 39-year old male who presented to the emergency room endorsing suicidal thoughts and depression secondary to being out of his medication. He was admitted to the neuropsychiatric unit for definitive treatment of those issues. A psychiatric consult was done in the emergency room yesterday which can be found below. Today when the office opens we contacted his doctor Dr. Joyner and were able to discuss the situation and the appropriate measures to bring the most healthy, recovery oriented solution. His doctor provided a bridge prescription to last until their appointment in 8 days. We spent some time discussing the importance of him not creating emergencies for others due to his not addressing issues when they actually occur. We discussed the importance of not just discontinuing drugs of abuse but discontinuing the hospital. He denied any lethality and was able to contract for safety. Per his consult 01/07/2020: Kyle Cartwright is a 39 year old male who presented to the emergency room most likely has multiple times in the past with focus on obtaining Suboxone because of some issue that has arisen. Psychiatry was consulted to identify a safe discharge plan. He reports that he saw his doctor at [facility] and he was placed on 16 mg daily of Suboxone sublingually. He reports that the doctor gave him verbal permission to take three 8/2 mg Suboxone strips a day if he was struggling with his cravings or withdrawal. He reports that he did that and then call the doctor's office and was advised he needed to come in but he reports he was unable to get there and came here with the plan initially to be admitted. However we discussed the fact that we would not start his Suboxone without confirmation that Dr. Joyner had authorized such a behavior. After different attempts at negotiations that would lead to him getting a dose of Suboxone sooner rather than later he requested to be able to go home and tomorrow he would seek out his provider. Excerpt from his last evaluation is included below as there have been no substantive changes. We discussed the risks, benefits and alternatives of the different plans and he understood and agreed to proceed as is documented in this note. Per his 11/15/19 Eval: History of Present Illness Kyle Cartwright is a 39 year old male who presented to the emergency room requesting Suboxone. He endorsed running out of his medication and being in withdrawal having some use of other opiates to manage said withdrawal. There had been some mention suicidality, but none mentioned to the attending physician. Psychiatric consult for evaluation for safety for discharge versus admission was requested. Kyle is well-known to this automatic typewriter inspector from previous presentations all of which surrounded him not having access to Suboxone. After a brief conversation about the fact that the last time he was seen we agreed that we would not go down this path again of reconnecting him with Suboxone. We agreed that we would not support his lack of follow-through by baling him out so to speak. He agreed and accepted that he would have to go and follow through to get the Suboxone treatment he reports is successful for him. Below see enclosed excerpt from his last evaluation as he denies any substantive changes to his psychosocial circumstances. Per [place] [facility] [place]: History of Present Illness Kyle Cartwright is a 39 year old male who presented to the emergency room yesterday after a reported episode of confusion and a fall that he says resulted in him having a seizure. Initially the evaluation centered around that but then later he became very tearful talking about the of his best friend and his girlfriend also succumbing to addiction. He was really upset about the fact that his Suboxone had run out and he was now struggling with sobriety and endorsed suicidal thoughts and was intermittently aggressive and acting out and was unable to contract for safety. He got to the unit and acclimated to the individual group and family therapies provided. We were able to figure out some options to get him an appointment within 2 weeks. We agreed that we will give him a 2 week supply of Suboxone and that we would not do that again unless he has actually connected with outpatient provider. He reports that he had tried to get connected with a warrant given appointments for 4-5 weeks so the 2 week supply previously had was not helpful. Once we were able to set those things up he was denying all lethality and endorsed a desire to go home. Excerpts from consult from yesterday is included below for some recent historical data. Psychiatric history: He's had over 20 hospitalizations here and is unclear if these constellation of other places. He's been on multiple medications. Substance abuse history: He is struggling with opiate and alcohol addiction for some time is currently on agonist therapy for his opiates. Psychosocial history: He currently lives with his mother reports that they have a good relationship and sometimes she is a challenge for him. He also reports having children that he is responsible for. No recent history of working. [place] [facility] [place]: Psych Consult HPI History of Present Illness Kyle Cartwright is a 39 year old male Kyle presents today after a significantly chaotic presentation to the emergency room wherein he presented with reports that he had fallen and hit his head and had a seizure, and that he was currently postictal. Full evaluation left significant questions as to whether that story was accurate. He initially had endorsed that he wanted to go to the neuropsych unit, however, after some time passed, he reversed position and said he did not want to go to the neuropsych unit. He reported that he was going to get aggressive with one of the security guards and, at one point, a code was called because of how aggressive he was being. I was called in to consult on the case and began discussing his situation. He reported he was struggling with his relationship with his mother and that she was giving him a hard time. He also reported that he was struggling with his recovery because he was on Suboxone and then was not able to get Suboxone, and he is just really feeling like everything has gone the wrong way in his life, and he just does not know if it is worth it. We discussed his issue in getting a Suboxone treatment facility. In fact, I contacted some of the social workers and was just looking at what our options were. He was tearful at times and was somewhat ambivalent about the actual level of lethality that he was feeling. We discussed the risks, benefits, and alternatives of admission versus discharge, and he understood and agreed to proceed as is documented in this note. Below you will find the discharge summary from his last evaluation with Dr. Jeter; within that he noted that there had not been any changes in his psychosocial circumstances. Per his DC summary from August: Hospital Course Discharge Summary Chief complaint: I've been doing heroin off and on for the past 3 years but really heavily for the past month. History of present illness:Kyle Cartwright is a 38 year old male He reports that he has been doing heroin and is ashamed about it. He has not told anybody that revealed one how frequently he was shooting heroin. He says using very heavily in the past month and is in heroin withdrawal at this time. he reports using Clean needles and multiple times a day. He says he has been to a rehabilitation program and was treated successfully with Suboxone. He has not had any heroin in the last 4 days and is currently in heroin withdrawal. He was admitted on the strength of 96 hour affidavit filed by his mother. The patient and his mother apparently have a very close relationship as they live together. Mother states that he is not medically stable. He has been verbally abusive to she and his and stole money from her. He has threatened his ex-girlfriend. Mother makes no mention is heroin. Patient states that he has hit his heroin is his mother is ashamed of his behavior. He says that this is going to bring her heart and that they will have a very difficult time with relationship when she finds out that he has been using. He otherwise denies psychiatric symptoms. He had a friend who from a heroin overdose. He specifically does not want to . He denies any suicidal or homicidal threats. He is not angry at his mother for filing affidavit is embarrassed that he made statements that she says that he made. Diagnoses: Opiate dependence Opiate withdrawal Major Depression ? recurrent, currently in remission Antisocial personality traits Seizure disorder?by history, type unknown Assessment: The patient presents as a 38-year-old man in the throes of heroin addiction and emotional distress over the fact that it is having on his family. The intent at this time is to treat him for opiate withdrawal and assess potential for entry into a rehabilitation program. There is no indication of imminent risk to self or others as evidenced by information in this interview and his past mental health treatment. He will be restarted on previously effective medications and treated for symptoms of opiate withdrawal. Treatment plan: Due to the psychiatric conditions and treatment listed in the Assessment and Plan - the patient requires continued hospitalization. Will provide a safe and therapeutic environment for patient.. Will continue inpatient treatment to allow for medication adjustment and monitoring. Will continue q15 min safety checks. The patient presents a 38-year-old man in the throes of heroin addiction and emotional distress over the fact that it is having on his family. The intent at this time is to treat him for opiate withdrawal and assess potential for entry into a rehabilitation program. There is no indication of imminent risk to self or others as evidenced by information in this interview and his past mental health treatment. He will be restarted on previously effective medications and treated for symptoms of opiate withdrawal. Restart Keppra 250 mg twice a day, Suboxone at 4/1 milligram twice a day, clonidine 0.1 mg 3 times a day, and Seroquel 300 mg at bedtime. Hospital day #3:Will continue current medications and monitor for medication side effects. Suboxone 4/1 twice a day, Seroquel 300 mg at bedtime, Keppra 250 mg twice a day, and clonidine 0.1 mg 3 times a day. HD#4: Pt continues to show signs of hypomania though he denies subjective sense of racing thoughts, impulsivity, hypersexuality. Will await to have infomraiton from collateral sources to make diagnosis. PLAN: increase Seroquel to 600 mg at bedtime and reduce clonidine. HD#5: Patient reports that he is responding well to current medication treatment. He has a great number of questions regarding the rehab program he wants. All of the questions are reasonable but his inability to let things go indicate his degree of perplexity. His mother is also present and we discussed his pattern of moods. She describes him as having elevated episodes and low episodes. But none reached the level of bipolar karla. He does not go days without sleep. He is not impulsive when he is elevated. He does become violent during hsi down phases which would be consistent with clinical depression. On the other hand, she is unable to describe these in absence of his substance use. PLAN: add Celexa 20 mg at bedtime and change clonidine to 0.2 mg at bedtime Mental status examination: Is an overweight versus obese white male with adequate rest, grooming and eye contact. No abnormal movements cooperative with exam in no acute distress. Speech was normal rate and volume. Mood described as better affect congruent. Thought process organized. Thought content: Patient denied any suicidal or homicidal ideations, there were no delusions reportedly noted, he denied any auditory or visual hallucinations. Attention and concentration were intact and memory was mostly reliable but none were formally tested. He is alert and oriented ?3. Insight and judgment are limited but improving. PFSH NPU PFSH: Medical History Alcoholism Anxiety Bipolar disorder Chronic back pain Depression GI bleed Hepatitis IBS (irritable bowel syndrome) Intermittent explosive disorder PTSD (post-traumatic stress disorder) Rectal bleed Seizure disorder Substance abuse Suicidal ideation Suicide attempt Surgical History History of back surgery Social History Smoking and tobacco status: smoker, details unknown Current gender identity: Male Attest: Inpatient hospitalization is no longer medically necessary or the clinically appropriate intervention at this time. Plan for managing his medication and this acute crisis were worked out with his outpatient provider. He is able to contract for safety and presents no credible lethality. Given his recent presentations malingering asked to be a diagnosis noted. We will discharge to home. Hospital Course Hospital Course Presented to the emergency room reporting suicidal thoughts with a plan and depression. He was admitted to the neuropsychiatric unit for definitive treatment of those issues. There was identified that not having access to his Suboxone is a factor in this presentation as it had been for previous presentations. We agreed that we would not administer the medication unless his provider had a plan moving forward so that this pattern could be stopped. Once he reached his provider and a plan was developed he was about a emergency load and was not on a 96-hour hold so he desired to be discharged. During the hospitalization there were routine laboratory studies which were within normal limits except for a few outliers. Additionally there was a general medical evaluation which was also within normal limits and revealed no new acute processes. Discharge Summary At the time of discharge, there was no endorsed lethality and psychosis was denied. Mood and anxiety appeared more stable. Patient endorsed a plan to avoid all drugs of abuse and follow-up with the outpatient recommendations. Evaluation revealed no credible lethality and he was not on a 96-hour hold so the patient was discharged. Involuntary Hold Information 96 Hour Hold: 96 Hour Involuntary Admission: No Mental Status Exam MSE Comments: This is an overweight versus obese, white male, with adequate dress, grooming, and eye contact. No abnormal movements, except for mild psychomotor retardation. Cooperative with exam in no acute distress. Speech was normal rate and volume. Mood described as thankful; affect . Thought process, organized. Thought content: patient denied any suicidal or homicidal ideation, there were no delusions reported or noted, patient denied any auditory or visual hallucinations. Attention, concentration, and memory appear intact but were not formally tested. He is alert and oriented times three. Insight and judgment are limited, but improving.Impulse control limited. Discharge Data Data Completed and Pending: Pending at discharge Category Date Time Status Drug Screen, Urin e Stat Lab 01/07/20 22:44 Uncollected Labs from last 24 hours 01/07/20 01/07/20 22:57 22:57 WBC 8.7 RBC 4.83 Hgb 14.4 Hct 43.3 MCV 89.6 MCH 29.8 MCHC 33.3 RDW 13.2 Plt Count 216 MPV 10.2 Neut % (Auto) 64.5 Lymph % (Auto) 23.5 [place] % (Auto) 10.1 Eos % (Auto) 0.7 Baso % (Auto) 0.7 Neut # (Auto) 5.6 Lymph # (Auto) 2.0 [place] # (Auto) 0.9 Eos # (Auto) 0.1 Baso # (Auto) 0.1 Nucleated RBC % (a uto) 0 Nucleated RBCs # 0.0 Sodium 144 Potassium 3.8 Chloride 103 Carbon Dioxide 24 Anion Gap 20.8 H BUN 11 Creatinine 1.0 GFR Calculation 83.6 L Glucose 91 Calculated Osmolal ity 294 Calcium 9.5 Total Bilirubin 0.3 AST 29 ALT 29 Alkaline Phosphata se 96 Total Protein 7.8 Albumin 4.7 Globulin 3.1 TSH 0.97 Salicylates < 0.3 L Acetaminophen < 5.0 L Ethyl Alcohol 32 H Vitals: Last Vital Signs Temp 98.2 F 01/08/20 06:00 Pulse 103 H 01/08/20 06:00 Resp 28 H 01/08/20 06:00 BP 184/126 01/08/20 06:00 Pulse Ox 97 01/08/20 06:00 Discharge Plan Discharge Patient Disposition: Home, Self-Care Condition: Stable Prescriptions: Continued quetiapine 300 mg tablet 600 mg PO BEDTIME Qty: 60 RF: 2 citalopram 20 mg tablet 20 mg PO BEDTIME Qty: 30 RF: 3 levetiracetam 500 mg Tablet 250 mg PO BID Qty: 60 RF: 2 creatine monohydrate 5,000 mg Powder In Packet See Rx Instructions .ROUTE .COMPLEX RF: 0 aspirin 81 mg Tablet,Delayed Release (Dr/Ec) 81 mg PO DAILY RF: 0 clonidine HCl 0.1 mg tablet 0.2 mg PO TID RF: 0 No Action buprenorphine-naloxone 8-2 mg film 3 film SUBLINGUAL DAILY Qty: 45 RF: 0 Discharge Orders: Discharge Order (Routine); Ordered 01/08/20 Ordered By: Lewis Erwin Referrals: Michelle Tinoco MD [Physician] - 02/18/20 2:00 pm Marcos Joyner MD [Physician] - 01/13/20 10:30 am Patrice Lunsford, Matty, EPIC PRELUDE ANALYST [Referring] - 1-3 days (call to schedule if you are interested in individual therapy. ) Discharge Diet: Regular Discharge Activity: Resume usual activity Patient Instructions: Narcotic Abuse (DC) Discharge Date/Time: 01/08/20 14:47 Discharge Attestations NPU Time Spent in Discharge Care*: greater than 30 min Specific Discharge Activities: Specific discharge activities: educating patient, discussing with pcp/other providers, discussing with case checker/social workers/dc planners, documenting/other paperwork and evaluating patient/reviewing data Coding Level of Care Code Acute Die Cast Technician for Edmond Hwang
[2020-01-08 11:49] VITALS: BP 184/126; PULSE 103; RESP 28; TEMP 36.8; O2SAT 97
== END 2020-01-08 14:47 | disposition home or self-care (01) ==
LOC: ER 23:04 → NP 01-08 02:39
PROVIDERS: Emergency Medicine; Admitting Provider Psychiatry & Neurology Psychiatry; Visit Provider Psychiatry & Neurology Psychiatry
DX: F11.21 Opioid dependence, in remission (principal); F11.90 Opioid use, unspecified, uncomplicated; F60.2 Antisocial personality disorder; F32.9 Major depressive disorder, single episode, unspecified; Z76.5 Malingerer [conscious simulation]
CPT/HCPCS: 12345; 36415; 80053; 80307; 84443; 85025; 96361; 96374; 99284; 99285; G0378; J0573; J1885; J7030

== ENCOUNTER → 2020-01-13 07:59 | Outpatient (BNVA) | payer MEDICAID, SELFPAY | PROVIDERS: Visit Provider Psychiatry & Neurology Psychiatry | DX: F32.9 Major depressive disorder, single episode, unspecified (principal); F60.2 Antisocial personality disorder; F11.21 Opioid dependence, in remission | CPT/HCPCS: 99213 ==

== ENCOUNTER → 2020-02-03 07:57 | Outpatient (BNVA) | payer MEDICAID, SELFPAY | PROVIDERS: Visit Provider Psychiatry & Neurology Psychiatry | DX: F32.9 Major depressive disorder, single episode, unspecified (principal); F11.21 Opioid dependence, in remission; F60.2 Antisocial personality disorder | CPT/HCPCS: 99213 ==

== ENCOUNTER → 2020-02-25 09:28 | Outpatient (BNVA) | payer MEDICAID, SELFPAY | PROVIDERS: Visit Provider Psychiatry & Neurology Psychiatry | DX: F32.9 Major depressive disorder, single episode, unspecified (principal); F11.21 Opioid dependence, in remission; F60.2 Antisocial personality disorder | CPT/HCPCS: 99213 ==

== ENCOUNTER 2020-02-26 12:25 | Inpatient (IN) | payer MEDICAID, SELFPAY ==
--- NOTE | 2020-02-26 12:28 | ECG_ITS ---
[facility] Test Date: 2020-02-26 Pat Name: Kyle Cartwright Department: Room: Gender: Male Progressive Care Nurse: : 1980 Requested By: Adalgisa Perez Order Number: [id number] Wallace MD: Liliya Galaviz M.D. Measurements Intervals [place] Rate: 106 P: 29 VT: 153 QRS: 87 QRSD: 97 T: 5 QT: 330 QTc: 440 Interpretive Statements SINUS TACHYCARDIA ABNORMAL RHYTHM ECG Compared to ECG 11/15/2019 19:16:57 No significant changes Electronically Signed On 02-26-2020 22:51:06 CDT by Liliya Galaviz M.D. [email or web address]
[2020-02-26 12:32] VITALS: BP 145/98; PULSE 114; RESP 16; TEMP 37.1; O2SAT 97; BMI 25.6
[2020-02-26 12:42] VITALS: O2SAT 97
--- NOTE | 2020-02-26 12:59 | ED_ITS ---
HPI - Psych General: Chief Complaint: Psychiatric Symptoms Stated Complaint: si,mhe Time Seen by Provider: 02/26/20 12:26 Source: patient and family Mode of arrival: ambulatory Limitations: no limitations History of Present Illness: HPI Narrative: Kyle is a nice 39-year-old male who comes in claiming he is suicidal. He states that there is been a recent in the family and that is what causes him to feel this way. He has been drinking. Patient states he needs something to help him relax. He does admit to a plan of trying to shoot himself in the head. Patient admits to being admitted to psychiatric facilities in the past. Review of Systems General: Reports: 10 or more systems reviewed and unremarkable except in HPI and below PFSH ED PFSH: Medical History Alcoholism Anxiety Bipolar disorder Chronic back pain Depression GI bleed Hepatitis IBS (irritable bowel syndrome) Intermittent explosive disorder PTSD (post-traumatic stress disorder) Rectal bleed Seizure disorder Substance abuse Suicidal ideation Suicide attempt Surgical History History of back surgery Social History Smoking and tobacco status: smoker, details unknown Current gender identity: Male Physical Exam Const: COMMON NORMALS: no acute distress, patient oriented x3, no limitations, healthy appearing and well nourished GENERAL APPEARANCE: cooperative, well kempt and well developed HENMT: COMMON NORMALS: normocephalic, atraumatic, external ears normal, EAC's normal and Normal external nose present HEAD & SCALP: normal to inspection, normocephalic and atraumatic FACE & SINUS: normal facial exam and face symmetric NOSE: Normal external nose present and Normal nares present EXTERNAL EAR: Yes external ears normal EXTERNAL AUDITORY CANAL: EAC's normal MOUTH: Normal oral and palatal mucosa present, lip normal and tongue normal Eye: COMMON NORMALS: Equal, round and reactive pupils present and conjunctivae normal GENERAL EYE: appearance normal, both eyes and all related structures ALIGNMENT: Yes alignment normal PERIORBITAL: periorbital findings normal EYELID: eyelids normal CONJUNCTIVA: Yes conjunctivae normal SCLERA: sclerae normal PUPIL: Yes Equal, round and reactive pupils present Neck/C-Spine: COMMON NORMALS: full ROM, no lymphadenopathy, supple, no meningeal signs and no JVD GENERAL: Yes normal visual inspection and Yes trachea midline Chest: COMMONS NORMALS: normal inspection of the chest and normal palpation of entire chest wall Resp: COMMON NORMALS: normal respiratory effort, No retractions, No use of accessory muscles and clear to auscultation bilaterally EFFORT & INSPECTION: Yes able to speak in complete sentences and Yes symmetric chest movement AUSCULTATION: clear to auscultation bilaterally, no crackles, no rales, no rhonchi and no wheezes Cardio: COMMON NORMALS: no JVD, regular rate, regular rhythm, S1 normal heart sound present and S2 normal heart sound present RATE: regular rate RHYTHM: regular rhythm HEART SOUNDS: S1 normal heart sound present, S2 normal heart sound present, no click, no gallops, no murmurs, no rubs and abnormal split S2 GI: COMMON NORMALS: Soft to palpation and No hepatosplenomegaly present PALPATION: Yes Soft to palpation, No Tenderness to palpation present (GI), No Guarding due to palpation present (GI), No Rigid due to palpation, Yes No hepatosplenomegaly present, No Hernia present, No Palpable mass present and No Pulsatile mass present : COMMON NORMALS: Yes no CVA tenderness BLADDER/KIDNEY EXAM: Yes no CVA tenderness Back/Pelvis: COMMON NORMALS: no CVA tenderness, thoracic and lumbar spine normal to inspection, no thoracic nor lumbar tenderness and thoraco-lumbar ROM normal Extremity: COMMON NORMALS: normal to inspection, full ROM, capillary refill normal, no joint enlargement, no clubbing, cyanosis or edema and no calf tenderness Neuro: COMMON NORMALS: patient oriented x3, CN's II-XII intact bilaterally, moves all extremities, no focal motor deficits and no sensory deficits noted MENINGEAL SIGNS: Yes no meningeal signs SPEECH: speech normal Psych: COMMON NORMALS: mental status grossly normal, Normal thought process present, cooperative, normal affect, speech normal and activity/motor behavior normal APPEARANCE: Yes well kempt SPEECH: Yes normal speech THOUGHT PROCESS: Normal thought process present Skin: COMMON NORMALS: no rashes or lesions noted, turgor normal, no jaundice, no petechiae and no mottling GENERAL SKIN EXAM: no rashes or lesions noted and turgor normal MDM - Psych MDM Narrative: Medical decision making narrative: The case was reviewed with Dr. Erwin, he agrees to accept the patient to the neuropsychiatric unit. Lab Data: Attestation: I reviewed the patient's lab results. Labs: Lab Results 02/26/20 02/26/20 02/26/20 Range/Units 12:52 12:54 12:54 WBC 5.4 (4.0-10.0) 10^3/ uL RBC 5.10 (4.1-5.3) 10^6/u L Hgb 15.1 (11.7-16.6) g/dL Hct 46.1 (42.0-52.0) % MCV 90.4 (80-94) fL MCH 29.6 (28.0-34.0) pg MCHC 32.8 (30.0-36.0) g/dL RDW 12.8 (12.1-15.1) % Plt Count 214 (130-400) 10^3/c mm MPV 10.6 H (7.4-10.4) fL Neut % (Auto) 44.9 % Lymph % (Auto) 37.2 % Coleman % (Auto) 10.4 % Eos % (Auto) 5.4 % Baso % (Auto) 1.7 % Neut # (Auto) 2.42 (1.8-7.7) 10^3/u L Lymph # (Auto) 2.0 (0.8-4.8) 10^3/u L Coleman # (Auto) 0.6 (0.2-0.9) 10^3/u L Eos # (Auto) 0.3 (0.0-0.8) 10^3/u L Baso # (Auto) 0.1 (0.0-0.1) 10^3/u L Nucleated RBC % (a uto) 0 % Nucleated RBCs # 0.0 /100WBC Sodium 141 (136-145) mmol/L Potassium 4.3 (3.5-5.1) mmol/L Chloride 104 (98-107) mmol/L Carbon Dioxide 26 (22-29) mmol/L Anion Gap 15.3 (5-19) BUN 11 (6-20) mg/dL Creatinine 1.1 (0.7-1.2) mg/dL GFR Calculation 74.9 L (90-130) mL/min Glucose 86 (65-115) mg/dL Calculated Osmolal ity 287 (285-295) mOsm/k g Calcium 9.3 (8.5-10.5) mg/dL Total Bilirubin 0.2 (0.15-1.2) mg/dL AST 17 (0-40) U/L ALT 15 (0-41) U/L Alkaline Phosphata se 91 (40-130) IU/L Total Protein 7.4 (6.6-8.7) g/dL Albumin 4.6 (3.5-5.2) g/dL Globulin 2.8 (1.3-4.6) g/dL TSH 1.15 (0.27-4.20) uIU/ mL Salicylates < 0.3 L (3-10) mg/dL Urine Opiates Scre en Negative (Negative) ng/mL Acetaminophen < 5.0 L (10-30) ug/mL Ur Barbiturates Sc reen Negative (Negative) ng/mL Ur Phencyclidine S crn Negative (Negative) ng/mL Ur Amphetamines Sc reen Negative (Negative) ng/mL U Benzodiazepines Scrn Positive H (Negative) ng/mL [place] (0.6-1.2) mmol/L Urine Cocaine Scre en Negative (Negative) ng/mL U Marijuana (THC) Screen Negative (Negative) ng/mL Ethyl Alcohol 20 H (0-10) mg/dL 02/26/20 Range/Units 12:54 WBC (4.0-10.0) 10^3/ uL RBC (4.1-5.3) 10^6/u L Hgb (11.7-16.6) g/dL Hct (42.0-52.0) % MCV (80-94) fL MCH (28.0-34.0) pg MCHC (30.0-36.0) g/dL RDW (12.1-15.1) % Plt Count (130-400) 10^3/c mm MPV (7.4-10.4) fL Neut % (Auto) % Lymph % (Auto) % Coleman % (Auto) % Eos % (Auto) % Baso % (Auto) % Neut # (Auto) (1.8-7.7) 10^3/u L Lymph # (Auto) (0.8-4.8) 10^3/u L Coleman # (Auto) (0.2-0.9) 10^3/u L Eos # (Auto) (0.0-0.8) 10^3/u L Baso # (Auto) (0.0-0.1) 10^3/u L Nucleated RBC % (a uto) % Nucleated RBCs # /100WBC Sodium (136-145) mmol/L Potassium (3.5-5.1) mmol/L Chloride (98-107) mmol/L Carbon Dioxide (22-29) mmol/L Anion Gap (5-19) BUN (6-20) mg/dL Creatinine (0.7-1.2) mg/dL GFR Calculation (90-130) mL/min Glucose (65-115) mg/dL Calculated Osmolal ity (285-295) mOsm/k g Calcium (8.5-10.5) mg/dL Total Bilirubin (0.15-1.2) mg/dL AST (0-40) U/L ALT (0-41) U/L Alkaline Phosphata se (40-130) IU/L Total Protein (6.6-8.7) g/dL Albumin (3.5-5.2) g/dL Globulin (1.3-4.6) g/dL TSH (0.27-4.20) uIU/ mL Salicylates (3-10) mg/dL Urine Opiates Scre en (Negative) ng/mL Acetaminophen (10-30) ug/mL Ur Barbiturates Sc reen (Negative) ng/mL Ur Phencyclidine S crn (Negative) ng/mL Ur Amphetamines Sc reen (Negative) ng/mL U Benzodiazepines Scrn (Negative) ng/mL [place] < 0.1 L (0.6-1.2) mmol/L Urine Cocaine Scre en (Negative) ng/mL U Marijuana (THC) Screen (Negative) ng/mL Ethyl Alcohol (0-10) mg/dL EKG Data^: EKG 1: Attestation: I personally reviewed and interpreted this EKG as follows: EKG interpretation date: 02/26/20 EKG interpretation time: 12:58 Interpretation: Sinus tachycardia 106 beats a minute, no acute ST-T wave changes, no blocks, normal intervals. Discharge Plan Discharge Patient Disposition: Admitted As Inpatient Admit Provider: Lewis Erwin Clinical Impression: Suicidal ideation Condition: Stable Discharge Date/Time: 02/26/20 13:50 Coding Level of Care Code ED Composition Board Press Operator for Chg Fwd Exam Comprehensive
[2020-02-26 13:07] LABS: Basophils # 0.1 10^3/uL (0.0-0.1); Basophils % 1.7 %; Eosinophils # 0.3 10^3/uL (0.0-0.8); Eosinophils % 5.4 %; Hematocrit 46.1 % (42.0-52.0); Hemoglobin 15.1 g/dL (11.7-16.6); Lymphocytes % 37.2 %; Mean Corpuscular HGB Conc 32.8 g/dL (30.0-36.0); Mean Corpuscular Hemoglobin 29.6 pg (28.0-34.0); Mean Corpuscular Volume 90.4 fL (80-94); Mean Platelet Volume 10.6 fL (7.4-10.4); Monocytes # 0.6 10^3/uL (0.2-0.9); Monocytes % 10.4 %; Neutrophils # 2.42 10^3/uL (1.8-7.7); Neutrophils % 44.9 %; Nucleated Red Blood Cells % 0 %; Platelet Count 214 10^3/cmm (130-400); Red Cell Distribution Width 12.8 % (12.1-15.1); White Blood Count 5.4 10^3/uL (4.0-10.0)
[2020-02-26] MEDS: nicotine 21 mg Patch 1 PATCH TRANSDERMA (13:14)
[2020-02-26 13:33] LABS: Acetaminophen < 5.0 ug/mL (10-30); Alanine Aminotransferase 15 U/L (0-41); Albumin Level 4.6 g/dL (3.5-5.2); Alcohol Level 20 mg/dL (0-10); Alkaline Phosphatase 91 IU/L (40-130); Anion Gap 15.3 (5-19); Aspartate Amino Transferase 17 U/L (0-40); Blood Urea Nitrogen 11 mg/dL (6-20); Calcium 9.3 mg/dL (8.5-10.5); Carbon Dioxide 26 mmol/L (22-29); Chloride 104 mmol/L (98-107); Globulin 2.8 g/dL (1.3-4.6); Glomerular Filtration Rate 74.9 mL/min (90-130); Glucose 86 mg/dL (65-115); Osmolality Calculated 287 mOsm/kg (285-295); Potassium 4.3 mmol/L (3.5-5.1); Salicylate < 0.3 mg/dL (3-10); Sodium 141 mmol/L (136-145); Thyroid Stimulating Hormone 1.15 uIU/mL (0.27-4.20); Total Bilirubin 0.2 mg/dL (0.15-1.2); Total Protein 7.4 g/dL (6.6-8.7)
[2020-02-26 13:38] LABS: Amphetamines Screen Urine Negative (Negative); Barbiturates Screen Urine Negative (Negative); Benzodiazepines Screen Urine Positive (Negative); Cocaine Screen Urine Negative (Negative); Opiate Screen Urine Negative (Negative); PCP Screen Urine Negative (Negative); THC Screen Urine Negative (Negative)
[2020-02-26 13:52] LABS: Lithium < 0.1 mmol/L (0.6-1.2)
[2020-02-26 14:07] VITALS: BP 138/93; PULSE 97; RESP 18; TEMP 37.3; O2SAT 96
[2020-02-26] MEDS: OLANZapine 5 mg ODT PO (17:27)
[2020-02-26] MEDS: buprenorphine-naloxone 4-1 mg Film 2 EACH SUBLINGUAL ×2 (17:27→20:44)
--- NOTE | 2020-02-26 17:27 | PC.NURSE ---
PRN ZYPREXA ZYDIS ZYPREXA ZYDIS 5MG PO PER PATIENT C/O ANXIETY/AGITATION. WILL CONTINUE TO MONITOR FOR MEDICATION EFFECTIVENESS.
--- NOTE | 2020-02-26 18:20 | PC.NURSE ---
PRN ZYPREXA ZYDIS FOLLOW UP MEDICATION EFFECTIVE. NO FURTHER C/O ANXIETY/AGITATION.
[2020-02-26] MEDS: hyDROXYzine 25 mg Capsule 50 MG PO (20:44)
[2020-02-26 20:45] VITALS: BP 136/91
[2020-02-26] MEDS: cloNIDine 0.1 mg Tablet PO (20:45)
[2020-02-26] MEDS: quetiapine 300 mg Tablet 600 MG PO (20:46)
[2020-02-26 20:52] VITALS: BP 136/91; PULSE 109; RESP 21; TEMP 37; O2SAT 96
[2020-02-27 06:00] VITALS: BP 131/82; PULSE 82; RESP 18; TEMP 36.4; O2SAT 96
--- NOTE | 2020-02-27 08:18 | P.HP_ITS ---
Providers/Chief Complaint Admitting Physician: Lewis Erwin MD Chief Complaint: si,mhe HPI NPU History of Present Illness Kyle Cartwright is a 39 year old male who presented to the emergency room endorsing that a family member at past which was giving him some challenges with managing his emotions. Endorsed suicidal thinking with thoughts to shoot himself in the head. He had been reportedly drinking and was unable to contract for safety. He was admitted to the neuropsychiatric unit for definitive micaela tment of those issues. Recent hospitalizations have not been very productive Kyle. Most of them have centered around his Suboxone and how to obtain it when he has not been doing his do diligence as an outpatient to avoid running out of times. This time he presents reporting these depressed and feels like his medication needs to be increased, however further investigation demonstrates that he has not been taking his medication, so we had a long discussion about how increasing a medication that you're not taking can create side effects from starting it at too high a dose. He blamed his mom because she reportedly picks up his medication and sets them up for him. We had a repeat of a conversation with pattern the past about approaching treatment in [facility] trusting that the collaborating physician is capable of looking at situations without painting with broad strokes when people are not perfect. We discussed the risks benefits alternatives of considering a different SSRI and he understood and agreed to proceed as is documented in his note. The plan was she was going to try to talk to his mom and figure out which ones he's been on before, before we start 1. His other medications were restarted. We reviewed his recent documentation through our system including previous interactions with this commercial loan underwriter and included excerpt from that as there hasn't been substantive changes. Of note it is unclear what his angle was however he lied about his mom bringing him to the emergency room and where she lived which this commercial loan underwriter thinks was a way to avoid being required to bring his medication bottles fearing he might be out of his Suboxone. He reports emotions that are not consistent with his presentation. Per last [facility] IP eval 01/08/2020: There was a double paste that made the ROSEBUD lengthy and in duplicate, I will place what should have been there below so you can ignore the previous. Also the attestation, which was omitted will be added here. HPI NPU History of present illness: Kyle Cartwright is a 39-year old male who presented to the emergency room endorsing suicidal thoughts and depression secondary to being out of his medication. He was admitted to the neuropsychiatric unit for definitive treatment of those issues. A psychiatric consult was done in the emergency room yesterday which can be found below. Today when the office opens we contacted his doctor Dr. Joyner and were able to discuss the situation and the appropriate measures to bring the most healthy, recovery oriented solution. His doctor provided a bridge prescription to last until their appointment in 8 days. We spent some time discussing the importance of him not creating emergencies for others due to his not addressing issues when they actually occur. We discussed the importance of not just discontinuing drugs of abuse but discontinuing the hospital. He denied any lethality and was able to contract for safety. Per his consult 01/07/2020: Kyle Cartwright is a 39 year old male who presented to the emergency room most likely has multiple times in the past with focus on obtaining Suboxone because of some issue that has arisen. Psychiatry was consulted to identify a safe discharge plan. He reports that he saw his doctor at [facility] and he was placed on 16 mg daily of Suboxone sublingually. He reports that the doctor gave him verbal permission to take three 8/2 mg Suboxone strips a day if he was struggling with his cravings or withdrawal. He reports that he did that and then call the doctor's office and was advised he needed to come in but he reports he was unable to get there and came here with the plan initially to be admitted. However we discussed the fact that we would not start his Suboxone without confirmation that Dr. Joyner had authorized such a behavior. After diff erent attempts at negotiations that would lead to him getting a dose of Suboxone sooner rather than later he requested to be able to go home and tomorrow he would seek out his provider. Excerpt from his last evaluation is included below as there have been no substantive changes. We discussed the risks, benefits and alternatives of the different plans and he understood and agreed to proceed as i s documented in this note. Per his 11/15/19 Eval: History of Present Illness Kyle Cartwright is a 39 year old male who presented to the emergency room requesting Suboxone. He endorsed running out of his medication and being in withdrawal having some use of other opiates to manage said withdrawal. There had been some mention suicidality, but none mentioned to the attending physician. Psychiatric consult for evaluation for safety for discharge versus admission was requested. Kyle is well-known to this commercial loan underwriter from previous presentations all of which surrounded him not having access to Suboxone. After a brief conversation about the fact that the last time he was seen we agreed that we would not go down this path again of reconnecting him with Suboxone. We agreed that we would not support his lack of follow-through by baling him out so to speak. He agreed and accepted that he would have to go and follow through to get the Suboxone treatment he reports is successful for him. Below see enclosed excerpt from his last evaluation as he denies any substantive changes to his psychosocial circumstances. Per his last [facility] eval 10/10/19: History of Present Illness Kyle Cartwright is a 39 year old male who presented to the emergency room yesterday after a reported episode of confusion and a fall that he says resulted in him having a seizure. Initially the evaluation centered around that but then later he became very tearful talking about the of his best friend and his girlfriend also succumbing to addiction. He was really upset about the fact that his Suboxone had run out and he was now struggling with sobriety and endorsed suicidal thoughts and was intermittently aggressive and acting out and was unable to contract for safety. He got to the unit and acclimated to the individual group and family therapies provided. We were able to figure out some options to get him an appointment within 2 weeks. We agreed that we will give him a 2 week supply of Suboxone and that we would not do that again unless he has actually connected with outpatient provider. He reports that he had tried to get connected with a warrant given appointments for 4-5 weeks so the 2 week supply previously had was not helpful. Once we were able to set those things up he was denying all lethality and endorsed a desire to go home. Excerpts from consult from yesterday is included below for some recent historical data. Psychiatric history: He's had over 20 hospitalizations here and is unclear if these constellation of other places. He's been on multiple medications. Substance abuse history: He is struggling with opiate and alcohol addiction for some time is currently on agonist therapy for his opiates. Psychosocial history: He currently lives with his mother reports that they have a good relationship and sometimes she is a challenge for him. He also reports having children that he is responsible for. No recent history of working. Per [facility] consult yesterday 10/09/2019: Psych Consult HPI History of Present Illness Kyle Cartwright is a 39 year old male Kyle presents today after a significantly chaotic presentation to the emergency room wherein he presented with reports that he had fallen and hit his head and had a seizure, and that he was currently postictal. Full evaluation left significant questions as to whether that story was accurate. He initially had endorsed that he wanted to go to the neuropsych unit, however, after some time passed, he reversed position and said he did not want to go to the neuropsych unit. He reported that he was going to get aggressive with one of the security guards and, at one point, a code was called because of how aggressive he was being. I was called in to consult on the case and began discussing his situation. He reported he was struggling with his relationship with his mother and that she was giving him a hard time. He also reported that he was struggling with his recovery because he was on Suboxone and then was not able to get Suboxone, and he is just really feeling like everything has gone the wrong way in his life, and he just does not know if it is worth it. We discussed his issue in getting a Suboxone treatment facility. In fact, I contacted some of the social workers and was just looking at what our options were. He was tearful at times and was somewhat ambivalent about the actual level of lethality that he was feeling. We discussed the risks, benefits, and alternatives of admission versus discharge, and he understood and agreed to proceed as is documented in this note. Below you will find the discharge summary from his last evaluation with Dr. Jeter; within that he noted that there had not been any changes in his psychosocial circumstances. Per his DC summary from August: Hospital Course Discharge Summary Chief complaint: I've been doing heroin off and on for the past 3 years but really heavily for the past month. History of present illness:Kyle Cartwright is a 38 year old male He reports that he has been doing heroin and is ashamed about it. He has not told anybody that revealed one how frequently he was shooting heroin. He says using very heavily in the past month and is in heroin withdrawal at this time. he reports using Clean needles and multiple times a day. He says he has been to a rehabilitation program and was treated successfully with Suboxone. He has not had any heroin in the last 4 days and is currently in heroin withdrawal. He was admitted on the strength of 96 hour affidavit filed by his mother. The patient and his mother apparently have a very close relationship as they live together. Mother states that he is not medically stable. He has been verbally abusive to she and his and stole money from her. He has threatened his ex-girlfriend. Mother makes no mention is heroin. Patient states that he has hit his heroin is his mother is ashamed of his behavior. He says that this is going to bring her heart and that they will have a very difficult time with relationship when she finds out that he has been using. He otherwise denies psychiatric symptoms. He had a friend who from a heroin overdose. He specifically does not want to . He denies any suicidal or homicidal threats. He is not angry at his mother for filing affidavit is embarrassed that he made statements that she says that he made. Diagnoses: Opiate dependence Opiate withdrawal Major Depression ? recurrent, currently in remission Antisocial personality traits Seizure disorder?by history, type unknown Assessment: The patient presents as a 38-year-old man in the throes of heroin addiction and emotional distress over the fact that it is having on his family. The intent at this time is to treat him for opiate withdrawal and assess potential for entry into a rehabilitation program. There is no indication of imminent risk to self or others as evidenced by information in this interview and his past mental health treatment. He will be restarted on previously effective medications and treated for symptoms of opiate withdrawal. Treatment plan: Due to the psychiatric conditions and treatment listed in the Assessment and Plan - the patient requires continued hospitalization. Will provide a safe and therapeutic environment for patient.. Will continue inpatient treatment to allow for medication adjustment and monitoring. Will continue q15 min safety checks. The patient presents a 38-year-old man in the throes of heroin addiction and emotional distress over the fact that it is having on his family. The intent at this time is to treat him for opiate withdrawal and assess potential for entry into a rehabilitation program. There is no indication of imminent risk to self or others as evidenced by information in this interview and his past mental [facility] treatment. He will be restarted on previously effective medications and treated for symptoms of opiate withdrawal. Restart Keppra 250 mg twice a day, Suboxone at 4/1 milligram twice a day, clonidine 0.1 mg 3 times a day, and Seroquel 300 mg at bedtime. Hospital day #3:Will continue current medications and monitor for medication side effects. Suboxone 4/1 twice a day, Seroquel 300 mg at bedtime, Keppra 250 mg twice a day, and clonidine 0.1 mg 3 times a day. HD#4: Pt continues to show signs of hypomania though he denies subjective sense of racing thoughts, impulsivity, hypersexuality. Will await to have infomraiton from collateral sources to make diagnosis. PLAN: increase Seroquel to 600 mg at bedtime and reduce clonidine. HD#5: Patient reports that he is responding well to current medication treatment. He has a great number of questions regarding the rehab program he wants. All of the questions are reasonable but his inability to let things go indicate his degree of perplexity. His mother is also present and we discussed his pattern of moods. She describes him as having elevated episodes and low episodes. But none reached the level of bipolar karla. He does not go days without sleep. He is not impulsive when he is elevated. He does become violent during hsi down phases which would be consistent with clinical depression. On the other hand, she is unable to describe these in absence of his substance use. PLAN: add Celexa 20 mg at bedtime and change clonidine to 0.2 mg at bedtime Mental status examination: Is an overweight versus obese white male with adequate rest, grooming and eye contact. No abnormal movements cooperative with exam in no acute distress. Speech was normal rate and volume. Mood described as better affect congruent. Thought process organized. Thought content: Patient denied any suicidal or homicidal ideations, there were no delusions reportedly noted, he denied any auditory or visual hallucinations. Attention and concentration were intact and memory was mostly reliable but none were formally tested. He is alert and oriented ?3. Insight and judgment are limited but improving. PFSH NPU PFSH: Medical History Alcoholism Anxiety Bipolar disorder Chronic back pain Depression GI bleed Hepatitis IBS (irritable bowel syndrome) Intermittent explosive disorder PTSD (post-traumatic stress disorder) Rectal bleed Seizure disorder Substance abuse Suicidal ideation Suicide attempt Surgical History History of back surgery Social History Smoking and tobacco status: smoker, details unknown Current gender identity: Male Attest: Inpatient hospitalization is no longer medically necessary or the clinically appropriate intervention at this time. Plan for managing his medication and this acute crisis were worked out with his outpatient provider. He is able to contract for safety and presents no credible lethality. Given his recent presentations malingering asked to be a diagnosis noted. We will discharge to home. Meds NPU Home Medications Medication Instructions Recorded Confirmed Last Taken Type creatine monohydrate See Rx Instructions .ROUTE .COMPLEX 10/09/19 02/26/20 02/26/20 History aspirin 81 mg PO DAILY 11/15/19 02/26/20 02/26/20 History buprenorphine 8 mg-naloxone 2 mg 1 film SUBLINGUAL TID #90 each 02/03/20 02/26/20 02/25/20 Rx sublingual film citalopram 20 mg tablet 20 mg PO BEDTIME #30 tab 02/03/20 02/26/20 02/25/20 Rx quetiapine 300 mg tablet 600 mg PO BEDTIME #60 tab 02/03/20 02/26/20 02/25/20 Rx clonidine HCl 0.1 mg tablet 0.2 mg PO TID #180 tab 02/25/20 02/26/20 02/26/20 Rx levetiracetam [Keppra] 250 mg PO BID 02/26/20 02/26/20 02/26/20 History Allergies Allergy/AdvReac Type Severity Reaction Status Date / Time No Known Allergies Allergy Verified 02/26/20 13:33 PFSH NPU PFSH: Medical History Alcoholism Anxiety Bipolar disorder Chronic back pain Depression GI bleed Hepatitis IBS (irritable bowel syndrome) Intermittent explosive disorder PTSD (post-traumatic stress disorder) Rectal bleed Seizure disorder Substance abuse Suicidal ideation Suicide attempt Surgical History History of back surgery Social History Smoking and tobacco status: smoker, details unknown Current gender identity: Male Mental Status Exam MSE Comments: This is an overweight white male, with adequate dress, grooming, and eye contact. No abnormal movements, except for mild psychomotor retardation. Cooperative with exam in no acute distress. Speech was normal rate and volume. Mood described as depressed; affect slightly subdued . Thought process, organized. Thought content: patient denied any suicidal or homicidal ideation but did endorse some passive wish, there were no delusions reported or noted, patient denied any auditory or visual hallucinations. Attention, and concentration appear intact, and memory is questionable but were not formally tested. He is alert and oriented times three. Insight and judgment are limited.Impulse control limited. Vitals/I&O/Wt Last Vital Signs Temp 98.8 F 02/27/20 14:00 Pulse 88 02/27/20 14:00 Resp 18 02/27/20 14:00 BP 164/103 02/27/20 14:52 Pulse Ox 96 02/27/20 06:00 Weight last 48 hrs Weight 100.698 kg Data NPU : 02/26/20 12:54 02/26/20 12:54 A&P Assessment and plan (1) Suicidal ideation: Status: Acute (2) Malingering: Status: Acute (3) Opioid use disorder, severe, in early remission, on maintenance therapy, dependence: Status: Acute (4) Opiate use: Status: Acute (5) Antisocial personality disorder: Status: Acute (6) Depression: Status: Acute Qualifiers: Depression Type: unspecified Qualified Code(s): F32.9 - Major depressive disorder, single episode, unspecified Additional A&P Information This is a 39 year old, white male, with mood dysregulation secondary to antisocial personality disorder, opiate use disorder, severe, depressive disorder, unspecified, and anxiety, who presents again reporting depression dealing with bereavement. Reporting he needs his antidepressant adjusted and ne eds to be stabilized. Continue current medication. Except: We will initiate an SSRI today once he has verified when he hasn't taken before. Continue every 15 minute checks for safety. Encourage individual, group and milieu therapy. Encourage sober living treatment after discharge at the highest level care to which he is willing to commit. Involuntary Hold Information 96 Hour Hold: 96 Hour Involuntary Admission: No Attestations NPU Medical Necessity Statement*: Inpatient hospitalization is medically necessary and the clinically appropriate intervention at this time. He will be in the hospital for over 2 midnight. We will monitor medications and make adjustments as indicated. Likely length of stay 2-4 days. Coding Level of Care Code Acute Sleep Technician for [facility] Diagnoses Suicidal ideation R45.851 Malingering Z76.5 Opioid use disorder, severe, in early remission, on maintenance therapy, dependence F11.21 Opiate use F11.90 Antisocial personality disorder F60.2 Depression F32.9 Depression Type: unspecified
[2020-02-27] MEDS: buprenorphine-naloxone 4-1 mg Film 2 EACH SUBLINGUAL ×3 (09:47→21:25)
[2020-02-27] MEDS: citalopram 20 mg Tablet PO (09:47)
[2020-02-27] MEDS: aspirin 81 mg EC Tablet PO (09:47)
[2020-02-27] MEDS: levETIRAcetam 500 mg Tablet 250 MG PO ×2 (09:47→17:56)
[2020-02-27 09:48] VITALS: BP 149/99
[2020-02-27] MEDS: cloNIDine 0.1 mg Tablet PO ×3 (09:48→21:24)
[2020-02-27 14:00] VITALS: BP 164/103; PULSE 88; RESP 18; TEMP 37.1
--- NOTE | 2020-02-27 14:00 | PC.NURSE ---
PRN zyprexa zydis given for anxiety will continue to monitor progress
[2020-02-27] MEDS: OLANZapine 5 mg ODT PO (14:01)
--- NOTE | 2020-02-27 14:51 | PC.NURSE ---
Spoke to pharmacist at [facility] IN [facility] [phone] . LAST FILLED IN apr 2019 bUSBIRONE 15mg po TID OLANZAPINE 15 MG POI I@BEDTIME GABAPENTIN 400MG PO TID ADDERALL 10MG PO -1 IN THE MORNING AND 1 AT NOON LAST FILLED MAR 2019 SUBOXONE 8-[address] FERRARI IS AWARE OF THE PAST MEDICATIONS AND THERE IS INFORMATION FROM LAST ADMISSION FROM [facility] [place] IN THE CHART
[2020-02-27 14:52] VITALS: BP 164/103
--- NOTE | 2020-02-27 17:33 | PC.RESP ---
SMOKING CESSATION INFORMATION SENT TO PATIENT.
[2020-02-27 21:24] VITALS: BP 161/82
[2020-02-27] MEDS: quetiapine 300 mg Tablet 600 MG PO (21:24)
[2020-02-27 22:00] VITALS: BP 161/82; PULSE 77; RESP 18; TEMP 36.6; O2SAT 98
[2020-02-28 06:00] VITALS: BP 129/84; PULSE 65; RESP 17; TEMP 36.9; O2SAT 95
[2020-02-28 09:21] VITALS: BP 129/84
[2020-02-28] MEDS: cloNIDine 0.1 mg Tablet PO ×2 (09:21→15:19)
[2020-02-28] MEDS: citalopram 20 mg Tablet PO (09:21)
[2020-02-28] MEDS: aspirin 81 mg EC Tablet PO (09:21)
[2020-02-28] MEDS: buprenorphine-naloxone 4-1 mg Film 2 EACH SUBLINGUAL ×2 (09:21→15:20)
[2020-02-28] MEDS: levETIRAcetam 500 mg Tablet 250 MG PO ×2 (09:22→17:04)
[2020-02-28 15:19] VITALS: BP 129/84
[2020-02-28] MEDS: hyDROXYzine 25 mg Capsule 50 MG PO (15:22)
--- NOTE | 2020-02-28 16:16 | P.DS_ITS ---
Diagnoses at Discharge Discharge Diagnosis (1) Suicidal ideation: Status: Resolved (2) Malingering: Status: Acute (3) Opioid use disorder, severe, in early remission, on maintenance therapy, dependence: Status: Acute (4) Opiate use: Status: Resolved (5) Antisocial personality disorder: Status: Acute (6) Depression: Status: Acute Qualifiers: Depression Type: unspecified Qualified Code(s): F32.9 - Major depressive disorder, single episode, unspecified Reason for Visit Reason for Visit: si,mhe Brief History: History of Present Illness Kyle Cartwright is a 39 year old male who presented to the emergency room endorsing that a family member at past which was giving him some challenges with managing his emotions. Endorsed suicidal thinking with thoughts to shoot himself in the head. He had been reportedly drinking and was unable to contract for safety. He was admitted to the neuropsychiatric unit for definitive treatment of those issues. Recent hospitalizations have not been very productive Kyle. Most of them have centered around his Suboxone and how to obt ain it when he has not been doing his do diligence as an outpatient to avoid running out of times. This time he presents reporting these depressed and feels like his medication needs to be increased, however further investigation demonstrates that he has not been taking his medication, so we had a long discussion about how increasing a medication that you're not taking can create side effects from starting it at too high a dose. He blamed his mom because she reportedly picks up his medication and sets them up for him. We had a repeat of a conversation with pattern the past about approaching treatment in [facility] trusting that the collaborating physician is capable of looking at situations without painting with broad strokes when people are not perfect. We discussed the risks benefits alternatives of considering a different SSRI and he understood and agreed to proceed as is documented in his note. The plan was she was going to try to talk to his mom and figure out which ones he's been on before, before we start 1. His other medications were restarted. We reviewed his recent documentation through our system including previous interactions with this sign writer letterer or painter and included excerpt from that as there hasn't been substantive changes. Of note it is unclear what his angle was however he lied about his mom bringing him to the emergency room and where she lived which this sign writer letterer or painter thinks was a way to avoid being required to bring his medication bottles fearing he might be out of his Suboxone. He reports emotions that are not consistent with his presentation. Per last [facility] IP eval 01/08/2020: There was a double paste that made the [place] lengthy and in duplicate, I will place what should have been there below so you can ignore the previous. Also the attestation, which was omitted will be added here. HPI NPU History of present illness: Kyle Cartwright is a 39-year old male who presented to the emergency room endorsing suicidal thoughts and depression secondary to being out of his medication. He was admitted to the neuropsychiatric unit for definitive treatment of those issues. A psychiatric consult was done in the emergency room yesterday which can be found below. Today when the office opens we contacted his doctor Dr. Joyner and were able to discuss the situation and the appropriate measures to bring the most healthy, recovery oriented solution. His doctor provided a bridge prescription to last until their appointment in 8 days. We spent some time discussing the importance of him not creating emergencies for others due to his not addressing issues when they actually occur. We discussed the importance of not just discontinuing drugs of abuse but discontinuing the hospital. He denied any lethality and was able to contract for safety. Per his consult 01/07/2020: Kyle Cartwright is a 39 year old male who presented to the emergency room most likely has multiple times in the past with focus on obtaining Suboxone because of some issue that has arisen. Psychiatry was consulted to identify a safe discharge plan. He reports that he saw his doctor at [facility] and he was placed on 16 mg daily of Suboxone sublingually. He reports that the doctor gave him verbal permission to take three 8/2 mg Suboxone strips a day if he was struggling with his cravings or withdrawal. He reports that he did that and then call the doctor's office and was advised he needed to come in but he reports he was unable to get there and came here with the plan initially to be admitted. However we discussed the fact that we would not start his Suboxone without confirmation that Dr. Joyner had authorized such a behavior. After different attempts at negotiations that would lead to him getting a dose of Suboxone sooner rather than later he requested to be able to go home and t omorrow he would seek out his provider. Excerpt from his last evaluation is included below as there have been no substantive changes. We discussed the risks, benefits and alternatives of the different plans and he understood and agreed to proceed as is documented in this note. Per his 11/15/19 Eval: History of Present Illness Kyle Cartwright is a 39 year old male who presented to the emergency room requesting Suboxone. He endorsed running out of his medication and being in withdrawal having some use of other opiates to manage said withdrawal. There had been some mention suicidality, but none mentioned to the attending physician. Psychiatric consult for evaluation for safety for discharge versus admission was requested. Kyle is well-known to this sign writer letterer or painter from previous presentations all of which surrounded him not having access to Suboxone. After a brief conversation about the fact that the last time he was seen we agreed that we would not go down this path again of reconnecting him with Suboxone. We agreed that we would not support his lack of follow-through by baling him out so to speak. He agreed and accepted that he would have to go and follow through to get the Suboxone treatment he reports is successful for him. Below see enclosed excerpt from his last evaluation as he denies any substantive changes to his psychosocial circumstances. Per his last [facility] eval 10/10/19: History of Present Illness Kyle Cartwright is a 39 year old male who presented to the emergency room yesterday after a reported episode of confusion and a fall that he says resulted in him having a seizure. Initially the evaluation centered around that but then later he became very tearful talking about the of his best friend and his girlfriend also succumbing to addiction. He was really upset about the fact that his Suboxone had run out and he was now struggling with sobriety and endorsed suicidal thoughts and was intermittently aggressive and acting out and was unable to contract for safety. He got to the unit and acclimated to the individual group and family therapies provided. We were able to figure out some options to get him an appointment within 2 weeks. We agreed that we will give him a 2 week supply of Suboxone and that we would not do that again unless he has actually connected with outpatient provider. He reports that he had tried to get connected with a warrant given appointments for 4-5 weeks so the 2 week supply previously had was not helpful. Once we were able to set those things up he was denying all lethality and endorsed a desire to go home. Excerpts from consult from yesterday is included below for some recent historical data. Psychiatric history: He's had over 20 hospitalizations here and is unclear if these constellation of other places. He's been on multiple medications. Substance abuse history: He is struggling with opiate and alcohol addiction for some time is currently on agonist therapy for his opiates. Psychosocial history: He currently lives with his mother reports that they have a good relationship and sometimes she is a challenge for him. He also reports having children that he is responsible for. No recent history of working. Per [facility] consult yesterday 10/09/2019: Psych Consult HPI History of Present Illness Kyle Cartwright is a 39 year old male Kyle presents today after a significantly chaotic presentation to the emergency room wherein he presented with reports that he had fallen and hit his head and had a seizure, and that he was currently postictal. Full evaluation left significant questions as to whether that story was accurate. He initially had endorsed that he wanted to go to the neuropsych unit, however, after some time passed, he reversed position and said he did not want to go to the neuropsych unit. He reported that he was going to get aggressive with one of the security guards and, at one point, a code was called because of how aggressive he was being. I was called in to consult on the case and began discussing his situation. He reported he was struggling with his relationship with his mother and that she was giving him a hard time. He also reported that he was struggling with his recovery because he was on Suboxone and then was not able to get Suboxone, and he is just really feeling like everything has gone the wrong way in his life, and he just does not know if it is worth it. We discussed his issue in getting a Suboxone treatment facility. In fact, I contacted some of the social workers and was just looking at what our options were. He was tearful at times and was somewhat ambivalent about the actual level of lethality that he was feeling. We discussed the risks, benefits, and alternatives of admission versus discharge, and he understood and agreed to proceed as is documented in this note. Below you will find the discharge summary from his last evaluation with Dr. Jeter; within that he noted that there had not been any changes in his psychosocial circumstances. Per his DC summary from August: Hospital Course Discharge Summary Chief complaint: I've been doing heroin off and on for the past 3 years but really heavily for the past month. History of present illness:Kyle Cartwright is a 38 year old male He reports that he has been doing heroin and is ashamed about it. He has not told anybody that revealed one how frequently he was shooting heroin. He says using very heavily in the past month and is in heroin withdrawal at this time. he reports using Clean needles and multiple times a day. He says he has been to a rehabilitation program and was treated successfully with Suboxone. He has not had any heroin in the last 4 days and is currently in heroin withdrawal. He was admitted on the strength of 96 hour affidavit filed by his mother. The patient and his mother apparently have a very close relationship as they live together. Mother states that he is not medically stable. He has been verbally abusive to she and his and stole money from her. He has threatened his ex-girlfriend. Mother makes no mention is heroin. Patient states that he has hit his heroin is his mother is ashamed of his behavior. He says that this is going to bring her heart and that they will have a very difficult time with relationship when she finds out that he has been using. He otherwise denies psychiatric symptoms. He had a friend who from a heroin overdose. He specifically does not want to . He denies any suicidal or homicidal threats. He is not angry at his mother for filing affidavit is embarrassed that he made statements that she says that he made. Diagnoses: Opiate dependence Opiate withdrawal Major Depression ? recurrent, currently in remission Antisocial personality traits Seizure disorder?by history, type unknown Assessment: The patient presents as a 38-year-old man in the throes of heroin addiction and emotional distress over the fact that it is having on his family. The intent at this time is to treat him for opiate withdrawal and assess potential for entry into a rehabilitation program. There is no indication of imminent risk to self or others as evidenced by information in this interview and his past mental health treatment. He will be restarted on previously effective medications and treated for symptoms of opiate withdrawal. Treatment plan: Due to the psychiatric conditions and treatment listed in the Assessment and Plan - the patient requires continued hospitalization. Will provide a safe and therapeutic environment for patient.. Will continue inpatient treatment to allow for medication adjustment and monitoring. Will continue q15 min safety checks. The patient presents a 38-year-old man in the throes of heroin addiction and emotional distress over the fact that it is having on his family. The intent at this time is to treat him for opiate withdrawal and assess potential for entry into a rehabilitation program. There is no indication of imminent risk to self or others as evidenced by information in this interview and his past mental health treatment. He will be restarted on previously effective medications and treated for symptoms of opiate withdrawal. Restart Keppra 250 mg twice a day, Suboxone at 4/1 milligram twice a day, clonidine 0.1 mg 3 times a day, and Seroquel 300 mg at bedtime. Hospital day #3:Will continue current medications and monitor for medication side effects. Suboxone 4/1 twice a day, Seroquel 300 mg at bedtime, Keppra 250 mg twice a day, and clonidine 0.1 mg 3 times a day. HD#4: Pt continues to show signs of hypomania though he denies subjective sense of racing thoughts, impulsivity, hypersexuality. Will await to have infomraiton from collateral sources to make diagnosis. PLAN: increase Seroquel to 600 mg at bedtime and reduce clonidine. HD#5: Patient reports that he is responding well to current medication treatment. He has a great number of questions regarding the rehab program he wants. All of the questions are reasonable but his inability to let things go indicate his degree of perplexity. His mother is also present and we discussed his pattern of moods. She describes him as having elevated episodes and low episodes. But none reached the level of bipolar karla. He does not go days without sleep. He is not impulsive when he is elevated. He does become violent during hsi down phases which would be consistent with clinical depression. On the other hand, she is unable to describe these in absence of his substance use. PLAN: add Celexa 20 mg at bedtime and change clonidine to 0.2 mg at bedtime Mental status examination: Is an overweight versus obese white male with adequate rest, grooming and eye contact. No abnormal movements cooperative with exam in no acute distress. Speech was normal rate and volume. Mood described as better affect congruent. Thought process organized. Thought content: Patient denied any suicidal or homicidal ideations, there were no delusions reportedly noted, he denied any auditory or visual hallucinations. Attention and concentration were intact and memory was mostly reliable but none were formally tested. He is alert and oriented ?3. Insight and judgment are limited but improving. PFSH NPU PFSH: Medical History Alcoholism Anxiety Bipolar disorder Chronic back pain Depression GI bleed Hepatitis IBS (irritable bowel syndrome) Intermittent explosive disorder PTSD (post-traumatic stress disorder) Rectal bleed Seizure disorder Substance abuse Suicidal ideation Suicide attempt Surgical History History of back surgery Social History Smoking and tobacco status: smoker, details unknown Current gender identity: Male Attest: Inpatient hospitalization is no longer medically necessary or the clinically appropriate intervention at this time. Plan for managing his medication and this acute crisis were worked out with his outpatient provider. He is able to contract for safety and presents no credible lethality. Given his recent presentations malingering asked to be a diagnosis noted. We will discharge to home. Hospital Course Hospital Course The patient presented to the emergency room endorsing suicidality, depression, bereavement, and overall struggling with a recent in his family, and reflecting upon the anniversary of the of his . He was admitted to the neuropsychiatric unit for definitive treatment of those issues. Once on the unit, he quickly acclimated to the individual, group, and milieu therapies provided. Of note, Kyle has had multiple hospitalizations, and all of them have been marred with a clear sense that he is not being totally transparent with his presentation or the issues at hand, and most times, that proving out with investigation. He presented to the unit reporting that he did not feel the Celexa was working and he thought he needed it increased. Investigation demonstrated that he had not picked up the Celexa from the pharmacy since he filled a prescription on 11-27 and likely ran out of the medication in the beginning of December. Mother consulted on this, as well, confirming that there is no way he could have taken the medication. He then back-tracked and reported he was confusing it with something else. Additionally, he had said that when he was admitted to the hospital it was not his mother that brought him there, in part, likely because this sign writer letterer or painter?s questioning was going down a path of possibly having his medications brought in, and he said she lived in [place] and that it was his Aunt that brought him there; verification of that was that in fact it was his mother, as we had been told it was. He used the excuse that he was out of it and he could not remember; he was not out of it and he was clear in what he said. It is unclear exactly what his reasoning for coming in was, but he endorsed depression, but did not have an affect consistent with depression. And then, on the second day, after we had restarted his Celexa and discussed an increase, he said that he thought with those things in place he felt he was ready to go. The truth is he was likely not needing to be here from a safety standpoint anyway. There was no demonstrative change in his presentation from admission to discharge, although he reports that he is much better. During the hospitalization, the patient had routine laboratory studies which were within normal limits, except for a few outliers. Additionally, the patient had a general medical evaluation which was within normal limits and revealed no new acute processes. Discharge Summary At the time of discharge the patient denied all lethality, was absent psychosis, and mood and anxiety were well managed. The patient endorsed a plan to avoid all drugs of abuse and to follow-up with outpatient services, as recommended. The patient was evaluated and deemed to be absent credible lethality, and had achieved the maximum benefit from an inpatient hospitalization, and so he was discharged. Involuntary Hold Information 96 Hour Hold: 96 Hour Involuntary Admission: No Mental Status Exam MSE Comments: This is an overweight white male, with adequate dress, grooming, and eye contact. No abnormal movements, except for mild psychomotor retardation. Cooperative with exam in no acute distress. Speech was normal rate and volume. Mood described as much better; affect euthymic. Thought process, organized. Thought content: patient denied any suicidal or homicidal ideation , there were no delusions reported or noted, patient denied any auditory or visual hallucinations. Attention, and concentration appear intact, and memory is q uestionable but were not formally tested. He is alert and oriented times three. Insight and judgment are limited.Impulse control limited. Discharge Data Vitals: Last Vital Signs Temp 98.5 F 02/28/20 06:00 Pulse 65 02/28/20 06:00 Resp 17 02/28/20 06:00 BP 129/84 02/28/20 15:19 Pulse Ox 95 02/28/20 06:00 Discharge Plan Discharge Patient Disposition: Home Condition: Stable Prescriptions: New citalopram 20 mg Tablet 30 mg PO DAILY 30 Days Qty: 45 RF: 1 Continued buprenorphine-naloxone 8-2 mg film 1 film SUBLINGUAL TID Qty: 90 RF: 0 quetiapine 300 mg tablet 600 mg PO BEDTIME Qty: 60 RF: 2 clonidine HCl 0.1 mg tablet 0.2 mg PO TID Qty: 180 RF: 2 creatine monohydrate 5,000 mg Powder In Packet See Rx Instructions .ROUTE .COMPLEX RF: 0 aspirin 81 mg Tablet,Delayed Release (Dr/Ec) 81 mg PO DAILY RF: 0 Keppra 500 mg tablet 250 mg PO BID RF: 0 Discontinued citalopram 20 mg tablet 20 mg PO BEDTIME Qty: 30 RF: 2 Discharge Orders: Discharge Order (Routine); Ordered 02/28/20 Ordered By: Lewis Erwin Referrals: Marcos Joyner MD [Physician] - 4-7 days (a message was left with hospital receptionist to get another appointment. you might have to call and check on that. ) Discharge Diet: Regular Discharge Activity: Resume usual activity Discharge Date/Time: 02/28/20 18:28 Discharge Attestations NPU Time Spent in Discharge Care*: less than 30 min Specific Discharge Activities: Specific discharge activities: educating patient, discussing with disease case manager/social workers/dc planners, documenting/other paperwork and evaluating patient/reviewing data Coding Level of Care Code Acute Guidance Services Coordinator for [facility] Fwd Diagnoses Suicidal ideation R45.851 Malingering Z76.5 Opioid use disorder, severe, in early remission, on maintenance therapy, dependence F11.21 Opiate use F11.90 Antisocial personality disorder F60.2 Depression F32.9 Depression Type: unspecified
[2020-02-28 17:11] VITALS: BP 129/84
== END 2020-02-28 18:28 | disposition home or self-care (01) | DRG 881 ==
LOC: ER 13:04 → NP 13:39
PROVIDERS: Emergency Medicine; Admitting Provider Psychiatry & Neurology Psychiatry; Visit Provider Psychiatry & Neurology Psychiatry
DX: F32.9 Major depressive disorder, single episode, unspecified (principal); R45.851 Suicidal ideations; F10.20 Alcohol dependence, uncomplicated; F11.21 Opioid dependence, in remission; F60.2 Antisocial personality disorder; Z76.5 Malingerer [conscious simulation]; F41.9 Anxiety disorder, unspecified; G89.29 Other chronic pain; M54.9 Dorsalgia, unspecified; Z86.19 Personal history of other infectious and parasitic diseases
CPT/HCPCS: 12345; 36415; 80053; 80178; 80306; 80307; 84443; 85025; 93005; 99284; J0573

== ENCOUNTER 2020-03-02 17:54 | Observation (INO) | payer MEDICAID, SELFPAY ==
[2020-03-02 17:56] VITALS: BMI 25.9
[2020-03-02 18:06] VITALS: BP 144/96; PULSE 92; RESP 16; O2SAT 93
--- NOTE | 2020-03-02 18:07 | PC.NURSE ---
pt refused to have his temp taken. pt is not in our hospital scrubs at this time d/t pt being placed in 4 point restraints on arrival.
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
[2020-03-02] MEDS: diphenhydrAMINE 50 mg/mL SDV 1mL IM (18:14)
[2020-03-02] MEDS: LORazepam 2 mg/mL INJ 1 mL IM (18:15)
[2020-03-02] MEDS: haloperidol inj 5 mg/mL INJ 1 mL IM (18:15)
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
[2020-03-02 21:22] LABS: Basophils # 0.1 10^3/uL (0.0-0.1); Basophils % 0.9 %; Eosinophils # 0.4 10^3/uL (0.0-0.8); Eosinophils % 4.8 %; Hematocrit 44.7 % (42.0-52.0); Hemoglobin 14.6 g/dL (11.7-16.6); Lymphocytes # 1.8 10^3/uL (0.8-4.8); Lymphocytes % 23.6 %; Mean Corpuscular HGB Conc 32.7 g/dL (30.0-36.0); Mean Corpuscular Hemoglobin 30.2 pg (28.0-34.0); Mean Corpuscular Volume 92.4 fL (80-94); Mean Platelet Volume 10.2 fL (7.4-10.4); Monocytes # 0.9 10^3/uL (0.2-0.9); Monocytes % 11.7 %; Neutrophils # 4.53 10^3/uL (1.8-7.7); Neutrophils % 58.4 %; Nucleated Red Blood Cells % 0 %; Platelet Count 217 10^3/cmm (130-400); Red Blood Count 4.84 10^6/uL (4.1-5.3); White Blood Count 7.8 10^3/uL (4.0-10.0)
[2020-03-02 21:52] LABS: Alanine Aminotransferase 33 U/L (0-41); Albumin Level 4.7 g/dL (3.5-5.2); Alcohol Level 33 mg/dL (0-10); Alkaline Phosphatase 101 IU/L (40-130); Anion Gap 14.7 (5-19); Aspartate Amino Transferase 30 U/L (0-40); Blood Urea Nitrogen 11 mg/dL (6-20); Calcium 9.3 mg/dL (8.5-10.5); Carbon Dioxide 25 mmol/L (22-29); Chloride 105 mmol/L (98-107); Globulin 2.6 g/dL (1.3-4.6); Glomerular Filtration Rate 74.9 mL/min (90-130); Glucose 92 mg/dL (65-115); Osmolality Calculated 286 mOsm/kg (285-295); Potassium 4.7 mmol/L (3.5-5.1); Sodium 140 mmol/L (136-145); Thyroid Stimulating Hormone 1.76 uIU/mL (0.27-4.20); Total Bilirubin 0.2 mg/dL (0.15-1.2); Total Protein 7.3 g/dL (6.6-8.7)
[2020-03-02 21:54] LABS: Acetaminophen < 5.0 ug/mL (10-30); Salicylate < 0.3 mg/dL (3-10)
[2020-03-02 22:04] LABS: INR 1.03 (0.8-1.2)
[2020-03-02 22:54] LABS: Amphetamines Screen Urine Negative (Negative); Barbiturates Screen Urine Negative (Negative); Benzodiazepines Screen Urine Positive (Negative); Cocaine Screen Urine Negative (Negative); Opiate Screen Urine Negative (Negative); PCP Screen Urine Negative (Negative); THC Screen Urine Negative (Negative)
[2020-03-02 22:56] LABS: Add Urine Microscopic? YES; Bilirubin Urine Neg (NEGATIVE); Blood Urine Neg (Negative); Glucose Urine UA Norm (Normal); Ketones Urine Negative (Negative); Leukocyte Esterase Urine Negative (Negative); Nitrate Urine Negative (Negative); Protein Urine Neg (Negative); Specific Gravity, Urine 1.025 (1.005-1.030); Urine Appearance SL Hazy (CLEAR); Urine Color Yellow (Yellow); Urobilinogen Urine Norm (Negative); pH Urine 5 (5-7)
[2020-03-02 22:57] LABS: Amorphous Sediment Urine 1+; Bacteria Urine 1+; Mucus Urine 1+; RBC Urine RARE /hpf (0-2); Squamous Epithelial Cell Urine RARE (0-5); WBC Urine RARE /hpf (0-5)
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
--- NOTE | 2020-03-03 00:54 | PC.NURSE ---
Pt arrived to [facility] at this time, via wheel chair. Pt noted to be very rude and uncooperative. Calling obscenities at the ER nurse.
--- NOTE | 2020-03-03 01:03 | PC.NURSE ---
during pt transport to [facility], pt stating he wished to be transported to [place]. Pt also states he fear for my life in this unit . Pt also states his rights were violated for not being transported to [place], made statement to file a complaint against me personally for not doing your job by not allowing him to stay in the ED. Pt was informed he can request a transfer to [place] when he speaks to the psychologist. Pt becoming more irritable, placing his foot on the floor, causing the wheelchair to stop suddenly. Upon arrival in the [facility], pt demanding my full name and phone number to file his complaint. States his mother is a neurologist and he will have her file a complaint as well. Pt kicked the wheelchair upon arrival to the unit, refusing to follow directions given by [facility] staff. Began making threats and insults to myself: You better hope the open that door before I come over and open it for you . They need to hurry up and get you the fk out of my face! . Pt observed yelling at the [facility] nurses station demanding his meds be adm prior to receiving physician order.
[2020-03-03 01:06] VITALS: BP 165/78; PULSE 98; RESP 18; TEMP 36.8; O2SAT 96
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
[2020-03-03 01:50] VITALS: RESP 16
[2020-03-03] MEDS: quetiapine 300 mg Tablet 600 MG PO (02:06)
[2020-03-03 06:00] VITALS: RESP 17
[2020-03-03 08:14] VITALS: BP 165/78
[2020-03-03] MEDS: cloNIDine 0.1 mg Tablet 0.2 MG PO (08:14)
[2020-03-03] MEDS: aspirin 81 mg EC Tablet PO (08:15)
[2020-03-03] MEDS: levETIRAcetam 500 mg Tablet 250 MG PO (08:15)
[2020-03-03] MEDS: citalopram 20 mg Tablet 30 MG PO (08:15)
--- NOTE | 2020-03-03 12:22 | PM.SDS ---
Short Stay Summary Providers Date of Admit/Discharge: 03/18/20 Attending Provider: Lewis Erwin MD Chief Complaint: PSYCH EVAL HPI History of Present Illness Kyle Cartwright is a 39 year old male who Kyle presented to the emergency room with police. He was making threats to harm himself and was being aggressive and combative with police and staff. The ER doctor was unable to obtain additional information because he was uncooperative and unable to be examined. He had been tased by the police and endorsed suicidal ideation. After having an IM injection, he was calm enough to be evaluated, at and he was admitted to the neuropsychiatric unit for definitive treatment of those issues. Upon arrival, he presented as he has for the multiple hospitalizations that have occurred at [facility]. This year alone, this is his sixth hospitalization in the neuropsychiatric unit. A pattern has emerged that each time, whether clarified or at least highly suspected, his Buprenorphine is at the heart of it. The last hospitalization we are fairly certain that he was probably low on his medications and needed to get some days in so that he would not end up running out. This time he presented reporting that his pills were up in [place], and the story changed, his mother or his girlfriend were in an accident and somehow his pills were with them, and he could not access them. But he denied that being the reason why he came. Ultimately, like ever other stay recently, once he gets here he sleeps and the first thing the next day he is ready to go. The aspect of this which is related to malingering, continues to seem higher and higher. We reviewed his last hospitalization and he denied any substantive changes, so an excerpt of that is included below. MENTAL STATUS EXAMINATION: This is an overweight versus obese white male with adequate rest, grooming and eye contact. No abnormal movements cooperative with exam in no acute distress. Speech was normal rate and volume. Mood described as pretty good, affect congruent. Thought process organized. Thought content: Patient denied any suicidal or homicidal ideations, there were no delusions reportedly noted, he denied any auditory or visual hallucinations. Attention and concentration were intact and memory was mostly reliable but none were formally tested. He is alert and oriented ?3. Insight and judgment are limited but improving. ASSESSMENT: This is a 39 year old, white male, with opiate use disorder, severe, on agonist therapy, antisocial personality disorder, depression, anxiety, and malingering, who presents reporting that he is feeling better and he wants to be discharged. RECOMMENDATION AND PLAN: Continue current medication. Encourage individual, group, and milieu therapy. Continue q-15 minute checks for safety. Recommend sober living treatment at the highest level of care to which he is willing to commit. Patient likely was never in eminent risk and is likely malingering for reasons we will not be able to tease out, and will be allowed to leave given that this pattern suggests that there is no eminent risk for lethality to self or others. Per last [facility] IP eval 02/27/2020: History of Present Illness Kyle Cartwright is a 39 year old male who presented to the emergency room endorsing that a family member at past which was giving him some challenges with managing his emotions. Endorsed suicidal thinking with thoughts to shoot himself in the head. He had been reportedly drinking and was unable to contract for safety. He was admitted to the neuropsychiatric unit for definitive treatment of those issues. Recent hospitalizations have not been very productive Kyle. Most of them have centered around his Suboxone and how to obtain it when he has not been doing his do diligence as an outpatient to avoid running out of times. This time he presents reporting these depressed and feels like his medication needs to be increased, however further investigation demonstrates that he has not been taking his medication, so we had a long discussion about how increasing a medication that you're not taking can create side effects from starting it at too high a dose. He blamed his mom because she reportedly picks up his medication and sets them up for him. We had a repeat of a conversation with pattern the past about approaching treatment in [facility] trusting that the collaborating physician is capable of looking at situations without painting with broad strokes when people are not perfect. We discussed the risks benefits alternatives of considering a different SSRI and he understood and agreed to proceed as is documented in his note. The plan was she was going to try to talk to his mom and figure out which ones he's been on before, before we start 1. His other medications were restarted. We reviewed his recent documentation through our system including previous interactions with this manual writer and included excerpt from that as there hasn't been substantive changes. Of note it is unclear what his angle was however he lied about his mom bringing him to the emergency room and where she lived which this manual writer thinks was a way to avoid being required to bring his medication bottles fearing he might be out of his Suboxone. He reports emotions that are not consistent with his presentation. Per last [facility] IP eval 01/08/2020: There was a double paste that made the [place] lengthy and in duplicate, I will place what should have been there below so you can ignore the previous. Also the attestation, which was omitted will be added here. HPI NPU History of present illness: Kyle Cartwright is a 39-year old male who presented to the emergency room endorsing suicidal thoughts and depression secondary to being out of his medication. He was admitted to the neuropsychiatric unit for definitive treatment of those issues. A psychiatric consult was done in the emergency room yesterday which can be found below. Today when the office opens we contacted his doctor Dr. Joyner and were able to discuss the situation and the appropriate measures to bring the most healthy, recovery oriented solution. His doctor provided a bridge prescription to last until their appointment in 8 days. We spent some time discussing the importance of him not creating emergencies for others due to his not addressing issues when they actually occur. We discussed the importance of not just discontinuing drugs of abuse but discontinuing the hospital. He denied any lethality and was able to contract for safety. Per his consult 01/07/2020: Kyle Cartwright is a 39 year old male who presented to the emergency room most likely has multiple times in the past with focus on obtaining Suboxone because of some issue that has arisen. Psychiatry was consulted to identify a safe discharge plan. He reports that he saw his doctor at [facility] and he was placed on 16 mg daily of Suboxone sublingually. He reports that the doctor gave him verbal permission to take three 8/2 mg Suboxone strips a day if he was struggling with his cravings or withdrawal. He reports that he did that and then call the doctor's office and was advised he needed to come in but he reports he was unable to get there and came here with the plan initially to be admitted. However we discussed the fact that we would not start his Suboxone without confirmation that Dr. Joyner had authorized such a behavior. After different attempts at negotiations that would lead to him getting a dose of Suboxone sooner rather than later he requested to be able to go home and tomorrow he would seek out his provider. Excerpt from his last evaluation is included below as there have been no substantive changes. We discussed the risks, benefits and alternatives of the different plans and he understood and agreed to proceed as is documented in this note. Per his 11/15/19 Eval: History of Present Illness Kyle Cartwright is a 39 year old male who presented to the emergency room requesting Suboxone. He endorsed running out of his medication and being in withdrawal having some use of other opiates to manage said withdrawal. There had been some mention suicidality, but none mentioned to the attending physician. Psychiatric consult for evaluation for safety for discharge versus admission was requested. Kyle is well-known to this manual writer from previous presentations all of which surrounded him not having access to Suboxone. After a brief conversation about the fact that the last time he was seen we agreed that we would not go down this path again of reconnecting him with Suboxone. We agreed that we would not support his lack of follow-through by baling him out so to speak. He agreed and accepted that he would have to go and follow through to get the Suboxone treatment he reports is successful for him. Below see enclosed excerpt from his last evaluation as he denies any substantive changes to his psychosocial circumstances. Per his last [facility] eval 10/10/19: History of Present Illness Kyle Cartwright is a 39 year old male who presented to the emergency room yesterday after a reported episode of confusion and a fall that he says resulted in him having a seizure. Initially the evaluation centered around that but then later he became very tearful talking about the of his best friend and his girlfriend also succumbing to addiction. He was really upset about the fact that his Suboxone had run out and he was now struggling with sobriety and endorsed suicidal thoughts and was intermittently aggressive and acting out and was unable to contract for safety. He got to the unit and acclimated to the individual group and family therapies provided. We were able to figure out some options to get him an appointment within 2 weeks. We agreed that we will give him a 2 week supply of Suboxone and that we would not do that again unless he has actually connected with outpatient provider. He reports that he had tried to get connected with a warrant given appointments for 4-5 weeks so the 2 week supply previously had was not helpful. Once we were able to set those things up he was denying all lethality and endorsed a desire to go home. Excerpts from consult from yesterday is included below for some recent historical data. Psychiatric history: He's had over 20 hospitalizations here and is unclear if these constellation of other places. He's been on multiple medications. Substance abuse history: He is struggling with opiate and alcohol addiction for some time is currently on agonist therapy for his opiates. Psychosocial history: He currently lives with his mother reports that they have a good relationship and sometimes she is a challenge for him. He also reports having children that he is responsible for. No recent history of working. Per [facility] consult yesterday 10/09/2019: Psych Consult HPI History of Present Illness Kyle Cartwright is a 39 year old male Kyle presents today after a significantly chaotic presentation to the emergency room wherein he presented with reports that he had fallen and hit his head and had a seizure, and that he was currently postictal. Full evaluation left significant questions as to whether that story was accurate. He initially had endorsed that he wanted to go to the neuropsych unit, however, after some time passed, he reversed position and said he did not want to go to the neuropsych unit. He reported that he was going to get aggressive with one of the security guards and, at one point, a code was called because of how aggressive he was being. I was called in to consult on the case and began discussing his situation. He reported he was struggling with his relationship with his mother and that she was giving him a hard time. He also reported that he was struggling with his recovery because he was on Suboxone and then was not able to get Suboxone, and he is just really feeling like everything has gone the wrong way in his life, and he just does not know if it is worth it. We discussed his issue in getting a Suboxone treatment facility. In fact, I contacted some of the social workers and was just looking at what our options were. He was tearful at times and was somewhat ambivalent about the actual level of lethality that he was feeling. We discussed the risks, benefits, and alternatives of admission versus discharge, and he understood and agreed to proceed as is documented in this note. Below you will find the discharge summary from his last evaluation with Dr. Jeter; within that he noted that there had not been any changes in his psychosocial circumstances. Per his DC summary from August: Hospital Course Discharge Summary Chief complaint: I've been doing heroin off and on for the past 3 years but really heavily for the past month. History of present illness:Kyle Cartwright is a 38 year old male He reports that he has been doing heroin and is ashamed about it. He has not told anybody that revealed one how frequently he was shooting heroin. He says using very heavily in the past month and is in heroin withdrawal at this time. he reports using Clean needles and multiple times a day. He says he has been to a rehabilitation program and was treated successfully with Suboxone. He has not had any heroin in the last 4 days and is currently in heroin withdrawal. He was admitted on the strength of 96 hour affidavit filed by his mother. The patient and his mother apparently have a very close relationship as they live together. Mother states that he is not medically stable. He has been verbally abusive to she and his and stole money from her. He has threatened his ex-girlfriend. Mother makes no mention is heroin. Patient states that he has hit his heroin is his mother is ashamed of his behavior. He says that this is going to bring her heart and that they will have a very difficult time with relationship when she finds out that he has been using. He otherwise denies psychiatric symptoms. He had a friend who from a heroin overdose. He specifically does not want to . He denies any suicidal or homicidal threats. He is not angry at his mother for filing affidavit is embarrassed that he made statements that she says that he made. Diagnoses: Opiate dependence Opiate withdrawal Major Depression ? recurrent, currently in remission Antisocial personality traits Seizure disorder?by history, type unknown Assessment: The patient presents as a 38-year-old man in the throes of heroin addiction and emotional distress over the fact that it is having on his family. The intent at this time is to treat him for opiate withdrawal and assess potential for entry into a rehabilitation program. There is no indication of imminent risk to self or others as evidenced by information in this interview and his past mental health treatment. He will be restarted on previously effective medications and treated for symptoms of opiate withdrawal. Treatment plan: Due to the psychiatric conditions and treatment listed in the Assessment and Plan - the patient requires continued hospitalization. Will provide a safe and therapeutic environment for patient.. Will continue inpatient treatment to allow for medication adjustment and monitoring. Will continue q15 min safety checks. The patient presents a 38-year-old man in the throes of heroin addiction and emotional distress over the fact that it is having on his family. The intent at this time is to treat him for opiate withdrawal and assess potential for entry into a rehabilitation program. There is no indication of imminent risk to self or others as evidenced by information in this interview and his past mental health treatment. He will be restarted on previously effective medications and treated for symptoms of opiate withdrawal. Restart Keppra 250 mg twice a day, Suboxone at 4/1 milligram twice a day, clonidine 0.1 mg 3 times a day, and Seroquel 300 mg at bedtime. Hospital day #3:Will continue current medications and monitor for medication side effects. Suboxone 4/1 twice a day, Seroquel 300 mg at bedtime, Keppra 250 mg twice a day, and clonidine 0.1 mg 3 times a day. HD#4: Pt continues to show signs of hypomania though he denies subjective sense of racing thoughts, impulsivity, hypersexuality. Will await to have infomraiton from collateral sources to make diagnosis. PLAN: increase Seroquel to 600 mg at bedtime and reduce clonidine. HD#5: Patient reports that he is responding well to current medication treatment. He has a great number of questions regarding the rehab program he wants. All of the questions are reasonable but his inability to let things go indicate his degree of perplexity. His mother is also present and we discussed his pattern of moods. She describes him as having elevated episodes and low episodes. But none reached the level of bipolar karla. He does not go days without sleep. He is not impulsive when he is elevated. He does become violent during hsi down phases which would be consistent with clinical depression. On the other hand, she is unable to describe these in absence of his substance use. PLAN: add Celexa 20 mg at bedtime and change clonidine to 0.2 mg at bedtime Mental status examination: Is an overweight versus obese white male with adequate rest, grooming and eye contact. No abnormal movements cooperative with exam in no acute distress. Speech was normal rate and volume. Mood described as better affect congruent. Thought process organized. Thought content: Patient denied any suicidal or homicidal ideations, there were no delusions reportedly noted, he denied any auditory or visual hallucinations. Attention and concentration were intact and memory was mostly reliable but none were formally tested. He is alert and oriented ?3. Insight and judgment are limited but improving. PFSH NPU PFSH: Medical History Alcoholism Anxiety Bipolar disorder Chronic back pain Depression GI bleed Hepatitis IBS (irritable bowel syndrome) Intermittent explosive disorder PTSD (post-traumatic stress disorder) Rectal bleed Seizure disorder Substance abuse Suicidal ideation Suicide attempt Surgical History History of back surgery Social History Smoking and tobacco status: smoker, details unknown Current gender identity: Male Inpatient hospitalization is no longer medically necessary or the clinically appropriate intervention at this time. Plan for managing his medication and this acute crisis were worked out with his outpatient provider. He is able to contract for safety and presents no credible lethality. Given his recent presentations malingering has to be a diagnosis noted. Home Meds/Allergies Home Medications and Allergies Home Medications Medication Instructions Recorded Confirmed Type aspirin 81 mg PO DAILY 11/15/19 03/16/20 History levetiracetam [Keppra] 250 mg PO BID 02/26/20 03/16/20 History Allergies Allergy/AdvReac Type Severity Reaction Status Date / Time No Known Allergies Allergy Verified 03/16/20 12:49 PFSH Acute PFSH: Medical History Alcoholism Anxiety Bipolar disorder Chronic back pain Depression GI bleed Hepatitis IBS (irritable bowel syndrome) Intermittent explosive disorder PTSD (post-traumatic stress disorder) Rectal bleed Seizure disorder Substance abuse Suicidal ideation Suicide attempt Surgical History History of back surgery Social History Smoking and tobacco status: smoker, details unknown Current gender identity: Male Vitals/I&O/Wt Last Vital Signs Temp 98.2 F 03/03/20 01:06 Pulse 98 03/03/20 01:06 Resp 17 03/03/20 06:00 BP 165/78 03/03/20 08:14 Pulse Ox 96 03/03/20 01:06 Weight last 48 hrs Weight 102.058 kg Hospital Course Hospital Course: Patient presented to the emergency room combative and reporting lethality. He received IM medication, at that time, and he calmed down. He was admitted to the neuropsychiatric unit for definitive treatment for those issues. Once here, he quickly acclimated to the individual, group, and milieu therapies provided. His medication was started but he was not given any Suboxone, secondary to significant concerns that this was about an attempt to get a dose as he probably is using too much of his medication. When he was not going to be given any Suboxone, unless a family member brought his own supply, he requested to discharge and said he was much better. During the hospitalization, the patient had routine laboratory studies which were within normal limits, except for a few outliers. Additionally, the patient had a general medical evaluation which was within normal limits and revealed no new acute processes. Discharge Summary: At the time of discharge the patient denied all lethality, was absent psychosis, and mood and anxiety were well managed. The patient endorsed a plan to avoid all drugs of abuse and to follow-up with outpatient services, as recommended. The patient was evaluated and deemed to be absent credible lethality, and had achieved the maximum benefit from an inpatient hospitalization, and so he was discharged. Diagnoses at Discharge Discharge Diagnosis (1) Malingering: Status: Acute (2) Opioid use disorder, severe, in early remission, on maintenance therapy, dependence: Status: Acute (3) Depression: Status: Acute Qualifiers: Depression Type: unspecified Qualified Code(s): F32.9 - Major depressive disorder, single episode, unspecified Discharge Plan Discharge Patient Disposition: Left Against Medical Advice Condition: Stable Prescriptions: Continued clonidine HCl 0.1 mg tablet 0.2 mg PO TID Qty: 180 RF: 2 aspirin 81 mg Tablet,Delayed Release (Dr/Ec) 81 mg PO DAILY RF: 0 levetiracetam [Keppra] 500 mg tablet 250 mg PO BID RF: 0 citalopram 20 mg Tablet 30 mg PO DAILY 30 Days Qty: 45 RF: 1 No Action buprenorphine-naloxone 8-2 mg film 1 film SUBLINGUAL TID Qty: 9 RF: 0 quetiapine 300 mg tablet 600 mg PO BEDTIME Qty: 60 RF: 2 Discharge Orders: Discharge Order (Routine); Ordered 03/03/20 Ordered By: Lewis Erwin Referrals: Marcos Joyner MD [Physician] - 03/17/20 1:30 pm Discharge Diet: Regular Discharge Activity: Resume usual activity Patient Instructions: Depression (DC), Anxiety (DC) Discharge Date/Time: 03/03/20 12:59 Attestations Medical Necessity Statement*: Inpatient hospitalization is no longer medically necessary or the clinically appropriate intervention at this time. We will discharge to home. The patient's concerns would be best addressed as an outpatient, and needs to really work with his provider with his sobriety and making sure he is being accountable for his actual choices with his Suboxone. We will allow him to discharge per his request. Time Spent in Patient Care*: greater than 30 min Time Spent in Smoking Cessation: Time spent discussing smoking cessation with patient: 3 to 10 minutes Specific Discharge Activities: Specific discharge activities: educating patient, discussing with child welfare caseworker/social workers/dc planners, documenting/other paperwork and evaluating patient/reviewing data Quality Metrics Clinical Quality Measures: During this hospital stay, did patient experience: None Coding Level of Care Code Acute Sports Book Writer for [facility] Fwd Diagnoses Malingering Z76.5 Opioid use disorder, severe, in early remission, on maintenance therapy, dependence F11.21 Depression F32.9 Depression Type: unspecified
[2020-03-03 12:53] VITALS: BP 165/78; PULSE 66; RESP 18; O2SAT 98
--- NOTE | 2020-03-05 08:42 | PC.RESP ---
SMOKING CESSATION INFORMATION SENT TO PATIENT.
== END 2020-03-03 12:59 | disposition left against medical advice (07) ==
LOC: ER 22:48 → NP 03-03 12:21
PROVIDERS: Admitting Provider Psychiatry & Neurology Psychiatry; Emergency Provider Emergency Medicine; Visit Provider Psychiatry & Neurology Psychiatry
DX: F60.2 Antisocial personality disorder (principal); R45.851 Suicidal ideations; S20.359A Superficial foreign body of unspecified front wall of thorax, initial encounter; Y35.839A Legal intervention involving a conducted energy device, unspecified person injured, initial encounter; W45.8XXA Other foreign body or object entering through skin, initial encounter; F31.9 Bipolar disorder, unspecified; F43.10 Post-traumatic stress disorder, unspecified; G40.909 Epilepsy, unspecified, not intractable, without status epilepticus; F10.21 Alcohol dependence, in remission; F17.200 Nicotine dependence, unspecified, uncomplicated
CPT/HCPCS: 10120; 12345; 36415; 80053; 80306; 80307; 81001; 84443; 85025; 85610; 96372; 99285; G0378; J1200; J1630; J2060

== ENCOUNTER → 2020-03-17 08:48 | Outpatient (BNVA) | payer MEDICAID, SELFPAY | PROVIDERS: Visit Provider Psychiatry & Neurology Psychiatry | DX: F60.2 Antisocial personality disorder (principal); F11.21 Opioid dependence, in remission | CPT/HCPCS: 99213 ==

== ENCOUNTER → 2020-03-19 13:37 | Outpatient (BNVA) | payer MEDICAID, SELFPAY | PROVIDERS: Visit Provider Psychiatry & Neurology Psychiatry | DX: F11.21 Opioid dependence, in remission (principal) | CPT/HCPCS: 80306 ==

== ENCOUNTER → 2020-03-31 07:36 | Outpatient (BNVA) | payer MEDICAID, SELFPAY | PROVIDERS: Visit Provider Psychiatry & Neurology Psychiatry | DX: F60.2 Antisocial personality disorder (principal); F11.21 Opioid dependence, in remission | CPT/HCPCS: 99213 ==

== ENCOUNTER → 2020-04-28 12:57 | Outpatient (BNVA) | payer MEDICAID, SELFPAY | PROVIDERS: Visit Provider Nurse Practitioner | DX: F11.21 Opioid dependence, in remission (principal) | CPT/HCPCS: 80306 ==

== ENCOUNTER → 2020-04-29 08:25 | Outpatient (BNVA) | payer MEDICAID, SELFPAY | PROVIDERS: Visit Provider Psychiatry & Neurology Psychiatry | DX: F32.9 Major depressive disorder, single episode, unspecified (principal); F60.2 Antisocial personality disorder; F11.21 Opioid dependence, in remission; F41.1 Generalized anxiety disorder | CPT/HCPCS: 99214 ==

== ENCOUNTER 2020-05-16 10:03 | Inpatient (IN) | payer MEDICAID, SELFPAY ==
[2020-05-16 10:07] VITALS: BP 163/125; PULSE 112; RESP 18; TEMP 36.4; O2SAT 96; BMI 33.3
--- NOTE | 2020-05-16 10:18 | W.ED.PSYCH ---
HPI - Psych General: Chief Complaint: Psychiatric Symptoms Stated Complaint: PSYCH EVAL/MEDICAL CLEARANCE PER PATIENT Time Seen by Provider: 05/16/20 10:06 Source: patient Mode of arrival: ambulatory Limitations: no limitations History of Present Illness: HPI Narrative: Kyle is a 39-year-old male who presents here with suicidality. He states that he missed his Suboxone appointment and is having suicidal thoughts as he feels like he is detoxing. He states he is having thoughts of killing self. Denies any worsening or improving factors. Denies any vomiting or diarrhea. Associated symptoms: Reports depression Review of Systems Const: Denies: fever(s), chills, body aches or change in appetite Eyes: Denies: blurry vision or eye discomfort ENMT: Denies: throat pain or dental pain Card: Denies: chest pain Resp: Denies: dyspnea GI: Denies: abdominal pain, nausea, vomiting or diarrhea : Denies: dysuria Musc: Denies: neck pain or back pain Skin/Breast: Denies: rash Neuro: Denies: headache(s) Psych: Reports: depression Willy/Lymph: Denies: easy bruising All/Imm: Denies: urticaria PFSH ED PFSH: Medical History Alcoholism Anxiety Bipolar disorder Chronic back pain Depression GI bleed Hepatitis IBS (irritable bowel syndrome) Intermittent explosive disorder PTSD (post-traumatic stress disorder) Rectal bleed Seizure disorder Substance abuse Suicidal ideation Suicide attempt Surgical History History of back surgery Social History Smoking and tobacco status: smoker, details unknown Current gender identity: Male Physical Exam Const: COMMON NORMALS: no acute distress, patient oriented x3 and healthy appearing HENMT: COMMON NORMALS: normocephalic and atraumatic HEAD & SCALP: normocephalic and atraumatic Eye: COMMON NORMALS: Equal, round and reactive pupils present and EOMs intact bilaterally PUPIL: Yes Equal, round and reactive pupils present Neck/C-Spine: COMMON NORMALS: full ROM and supple Chest: COMMONS NORMALS: normal inspection of the chest and normal palpation of entire chest wall Resp: COMMON NORMALS: normal respiratory effort, No retractions, No use of accessory muscles and clear to auscultation bilaterally AUSCULTATION: clear to auscultation bilaterally Cardio: COMMON NORMALS: regular rate, regular rhythm and No murmurs present (Cardio) RATE: regular rate RHYTHM: regular rhythm GI: COMMON NORMALS: Normal to inspection, nondistended, normoactive bowel sounds present, Soft to palpation, non-tender and no masses PALPATION: Yes Soft to palpation Extremity: COMMON NORMALS: normal to inspection and full ROM Neuro: COMMON NORMALS: patient oriented x3, moves all extremities and no focal motor deficits Psych: COMMON NORMALS: mental status grossly normal, Normal thought process present and cooperative MOOD & AFFECT: Yes depressed mood THOUGHT PROCESS: Normal thought process present THOUGHT CONTENT: Yes Suicidality present Skin: COMMON NORMALS: no rashes or lesions noted and no wounds GENERAL SKIN EXAM: no rashes or lesions noted MDM - Psych MDM Narrative: Medical decision making narrative: Kyle presents here with suicidal ideation. Patient is also out of his Suboxone. I spoke to Dr. Erwin who does know patient. We will admit him at this time. He is medically cleared and well-appearing here. Lab Data: Labs: Lab Results 05/16/20 Range/Units 10:39 WBC 6.7 (4.0-10.0) 10^3/ uL RBC 5.14 (4.1-5.3) 10^6/u L Hgb 15.5 (11.7-16.6) g/dL Hct 46.2 (42.0-52.0) % MCV 89.9 (80-94) fL MCH 30.2 (28.0-34.0) pg MCHC 33.5 (30.0-36.0) g/dL RDW 12.4 (12.1-15.1) % Plt Count 242 (130-400) 10^3/c mm MPV 10.9 H (7.4-10.4) fL Neut % (Auto) 63.8 % Lymph % (Auto) 23.6 % [place] % (Auto) 9.4 % Eos % (Auto) 1.9 % Baso % (Auto) 0.7 % Neut # (Auto) 4.26 (1.8-7.7) 10^3/u L Lymph # (Auto) 1.6 (0.8-4.8) 10^3/u L [place] # (Auto) 0.6 (0.2-0.9) 10^3/u L Eos # (Auto) 0.1 (0.0-0.8) 10^3/u L Baso # (Auto) 0.1 (0.0-0.1) 10^3/u L Nucleated RBC % (a uto) 0 % Nucleated RBCs # 0.0 /100WBC Discharge Plan Discharge Patient Disposition: Admitted As Inpatient Clinical Impression: Suicidal ideation Condition: Stable Coding Level of Care Code ED Back Tender Paper Machine for Rowdyg Fwd Exam Comprehensive
[2020-05-16] MEDS: LORazepam 2 mg Tablet PO (10:20)
--- NOTE | 2020-05-16 10:43 | PC.NURSE ---
pt c/o back pain. ED provider notified. orders received.
[2020-05-16 10:54] LABS: Basophils # 0.1 10^3/uL (0.0-0.1); Basophils % 0.7 %; Eosinophils # 0.1 10^3/uL (0.0-0.8); Eosinophils % 1.9 %; Hematocrit 46.2 % (42.0-52.0); Hemoglobin 15.5 g/dL (11.7-16.6); Lymphocytes # 1.6 10^3/uL (0.8-4.8); Lymphocytes % 23.6 %; Mean Corpuscular HGB Conc 33.5 g/dL (30.0-36.0); Mean Corpuscular Hemoglobin 30.2 pg (28.0-34.0); Mean Corpuscular Volume 89.9 fL (80-94); Mean Platelet Volume 10.9 fL (7.4-10.4); Monocytes # 0.6 10^3/uL (0.2-0.9); Monocytes % 9.4 %; Neutrophils # 4.26 10^3/uL (1.8-7.7); Neutrophils % 63.8 %; Nucleated Red Blood Cells % 0 %; Platelet Count 242 10^3/cmm (130-400); Red Blood Count 5.14 10^6/uL (4.1-5.3); Red Cell Distribution Width 12.4 % (12.1-15.1); White Blood Count 6.7 10^3/uL (4.0-10.0)
[2020-05-16] MEDS: TRAMadol 50 mg Tablet 100 MG PO (11:00)
[2020-05-16 11:47] LABS: Alanine Aminotransferase 37 U/L (0-41); Albumin Level 4.4 g/dL (3.5-5.2); Alcohol Level 43 mg/dL (0-10); Alkaline Phosphatase 128 IU/L (40-130); Aspartate Amino Transferase 19 U/L (0-40); Blood Urea Nitrogen 8 mg/dL (6-20); Calcium 9.7 mg/dL (8.5-10.5); Carbon Dioxide 23 mmol/L (22-29); Chloride 105 mmol/L (98-107); Creatinine Clr Calc Pharmacy 151.7165; Globulin 2.9 g/dL (1.3-4.6); Glomerular Filtration Rate 83.6 mL/min (90-130); Glucose 106 mg/dL (65-115); Osmolality Calculated 291 mOsm/kg (285-295); Sodium 141 mmol/L (136-145); Total Bilirubin 0.2 mg/dL (0.15-1.2); Total Protein 7.3 g/dL (6.6-8.7)
[2020-05-16 11:53] LABS: Acetaminophen < 5.0 ug/mL (10-30); Salicylate < 0.3 mg/dL (3-10)
[2020-05-16 12:05] VITALS: BP 148/80; PULSE 93; RESP 16; TEMP 36.6; O2SAT 96
[2020-05-16 12:19] VITALS: BP 136/84; PULSE 100; RESP 18; TEMP 37.1
[2020-05-16 12:35] LABS: THC Screen Urine Negative (Negative)
[2020-05-16 12:36] LABS: Amphetamines Screen Urine Negative (Negative); Barbiturates Screen Urine Negative (Negative); Benzodiazepines Screen Urine Positive (Negative); Cocaine Screen Urine Negative (Negative); Opiate Screen Urine Negative (Negative); PCP Screen Urine Negative (Negative)
[2020-05-16 14:00] VITALS: BP 158/86; PULSE 75; RESP 18; TEMP 37.2
[2020-05-16] MEDS: hyDROXYzine 25 mg Capsule 50 MG PO (15:06)
[2020-05-16] MEDS: acetaminophen 325 mg Tablet 650 MG PO (17:35)
[2020-05-16 21:18] VITALS: BP 158/86
[2020-05-16] MEDS: cloNIDine 0.1 mg Tablet 0.2 MG PO (21:18)
[2020-05-16] MEDS: quetiapine 300 mg Tablet 600 MG PO (21:18)
[2020-05-16 22:00] VITALS: BP 154/103; PULSE 98; RESP 17; TEMP 37.3; O2SAT 95
[2020-05-17 06:00] VITALS: BP 111/69; PULSE 86; RESP 18; TEMP 36.6; O2SAT 93
[2020-05-17] MEDS: levETIRAcetam 500 mg Tablet PO (09:06)
[2020-05-17] MEDS: citalopram 20 mg Tablet 40 MG PO (09:06)
[2020-05-17] MEDS: aspirin 81 mg EC Tablet PO (09:06)
[2020-05-17] MEDS: cloNIDine 0.1 mg Tablet 0.2 MG PO (09:10)
--- NOTE | 2020-05-17 09:42 | PM.NHP ---
Providers/Chief Complaint Admitting Physician: Lewis Erwin MD Chief Complaint: PSYCH EVAL/MEDICAL CLEARANCE PER PATIENT HPI NPU History of Present Illness Kyle Cartwright is a 39 year old male who presented to the emergency department with the following report: Chief Complaint: Psychiatric Symptoms Stated Complaint: PSYCH EVAL/MEDICAL CLEARANCE PER PATIENT Time Seen by Provider: 05/16/20 10:06 Source: patient Mode of arrival: ambulatory Limitations: no limitations History of Present Illness: HPI Narrative: Kyle is a 39-year-old male who presents here with suicidality. He states that he missed his Suboxone appointment and is having suicidal thoughts as he feels like he is detoxing. He states he is having thoughts of killing self. Denies any worsening or improving factors. Denies any vomiting or diarrhea. Associated symptoms: Reports depression> He was admitted to the neuropsychiatric unit for definitive treatment of those issues. This morning he represents continuing to lobby for the Suboxone. He was advised that we only give the medication when a person is an active prescription and he was already supposed to return to see Dr. Joyner at this point. We reviewed his last hospitalization note which was very much like this situation with him presenting ultimately wanting to get Suboxone dosing due to some issue with him getting to his appointment or making the phone calls he needs to make to stay current with Dr. Joyner. An excerpt of the last note is included below as he denies any substantive changes since the last note. Plus after it became clear he was not going to get Suboxone he has to be discharged AGAINST MEDICAL ADVICE. Per his 03/03/2020 inpatient eval: History of Present Illness Kyle Cartwright is a 39 year old male who Kyle presented to the emergency room with police. He was making threats to harm himself and was being aggressive and combative with police and staff. The ER doctor was unable to obtain additional information because he was uncooperative and unable to be examined. He had been tased by the police and endorsed suicidal ideation. After having an IM injection, he was calm enough to be evaluated, at and he was admitted to the neuropsychiatric unit for definitive treatment of those issues. Upon arrival, he presented as he has for the multiple hospitalizations that have occurred at [facility]. This year alone, this is his sixth hospitalization in the neuropsychiatric unit. A pattern has emerged that each time, whether clarified or at least highly suspected, his Buprenorphine is at the heart of it. The last hospitalization we are fairly certain that he was probably low on his medications and needed to get some days in so that he would not end up running out. This time he presented reporting that his pills were up in [place], and the story changed, his mother or his girlfriend were in an accident and somehow his pills were with them, and he could not access them. But he denied that being the reason why he came. Ultimately, like ever other stay recently, once he gets here he sleeps and the first thing the next day he is ready to go. The aspect of this which is related to malingering, continues to seem higher and higher. We reviewed his last hospitalization and he denied any substantive changes, so an excerpt of that is included below. MENTAL STATUS EXAMINATION: This is an overweight versus obese white male with adequate rest, grooming and eye contact. No abnormal movements cooperative with exam in no acute distress. Speech was normal rate and volume. Mood described as pretty good, affect congruent. Thought process organized. Thought content: Patient denied any suicidal or homicidal ideations, there were no delusions reportedly noted, he denied any auditory or visual hallucinations. Attention and concentration were intact and memory was mostly reliable but none were formally tested. He is alert and oriented ?3. Insight and judgment are limited but improving. ASSESSMENT: This is a 39 year old, white male, with opiate use disorder, severe, on agonist therapy, antisocial personality disorder, depression, anxiety, and malingering, who presents reporting that he is feeling better and he wants to be discharged. RECOMMENDATION AND PLAN: Continue current medication. Encourage individual, group, and milieu therapy. Continue q-15 minute checks for safety. Recommend sober living treatment at the highest level of care to which he is willing to commit. Patient likely was never in eminent risk and is likely malingering for reasons we will not be able to tease out, and will be allowed to leave given that this pattern suggests that there is no eminent risk for lethality to self or others. Per last [facility] [place] eval 02/27/2020: History of Present Illness Kyle Cartwright is a 39 year old male who presented to the emergency room endorsing that a family member at past which was giving him some challenges with managing his emotions. Endorsed suicidal thinking with thoughts to shoot himself in the head. He had been reportedly drinking and was unable to contract for safety. He was admitted to the neuropsychiatric unit for definitive treatment of those issues. Recent hospitalizations have not been very productive Kyle. Most of them have centered around his Suboxone and how to obtain it when he has not been doing his do diligence as an outpatient to avoid running out of times. This time he presents reporting these depressed and feels like his medication needs to be increased, however further investigation demonstrates that he has not been taking his medication, so we had a long discussion about how increasing a medication that you're not taking can create side effects from starting it at too high a dose. He blamed his mom because she reportedly picks up his medication and sets them up for him. We had a repeat of a conversation with pattern the past about approaching treatment in [facility] trusting that the collaborating physician is capable of looking at situations without painting with broad strokes when people are not perfect. We discussed the risks benefits alternatives of considering a different SSRI and he understood and agreed to proceed as is documented in his note. The plan was she was going to try to talk to his mom and figure out which ones he's been on before, before we start 1. His other medications were restarted. We reviewed his recent documentation through our system including previous interactions with this travel writer and included excerpt from that as there hasn't been substantive changes. Of note it is unclear what his angle was however he lied about his mom bringing him to the emergency room and where she lived which this travel writer thinks was a way to avoid being required to bring his medication bottles fearing he might be out of his Suboxone. He reports emotions that are not consistent with his presentation. Per last [facility] eval 01/08/2020: There was a double paste that made the [place] lengthy and in duplicate, I will place what should have been there below so you can ignore the previous. Also the attestation, which was omitted will be added here. HPI NPU History of present illness: Kyle Cartwright is a 39-year old male who presented to the emergency room endorsing suicidal thoughts and depression secondary to being out of his medication. He was admitted to the neuropsychiatric unit for definitive treatment of those issues. A psychiatric consult was done in the emergency room yesterday which can be found below. Today when the office opens we contacted his doctor Dr. Joyner and were able to discuss the situation and the appropriate measures to bring the most healthy, recovery oriented solution. His doctor provided a bridge prescription to last until their appointment in 8 days. We spent some time discussing the importance of him not creating emergencies for others due to his not addressing issues when they actually occur. We discussed the importance of not just discontinuing drugs of abuse but discontinuing the hospital. He denied any lethality and was able to contract for safety. Per his consult 01/07/2020: Kyle Cartwright is a 39 year old male who presented to the emergency room most likely has multiple times in the past with focus on obtaining Suboxone because of some issue that has arisen. Psychiatry was consulted to identify a safe discharge plan. He reports that he saw his doctor at [facility] and he was placed on 16 mg daily of Suboxone sublingually. He reports that the doctor gave him verbal permission to take three 8/2 mg Suboxone strips a day if he was struggling with his cravings or withdrawal. He reports that he did that and then call the doctor's office and was advised he needed to come in but he reports he was unable to get there and came here with the plan initially to be admitted. However we discussed the fact that we would not start his Suboxone without confirmation that Dr. Joyner had authorized such a behavior. After different attempts at negotiations that would lead to him getting a dose of Suboxone sooner rather than later he requested to be able to go home and tomorrow he would seek out his provider. Excerpt from his last evaluation is included below as there have been no substantive changes. We discussed the risks, benefits and alternatives of the different plans and he understood and agreed to proceed as is documented in this note. Per his 11/15/19 Eval: History of Present Illness Kyle Cartwright is a 39 year old male who presented to the emergency room requesting Suboxone. He endorsed running out of his medication and being in withdrawal having some use of other opiates to manage said withdrawal. There had been some mention suicidality, but none mentioned to the attending physician. Psychiatric consult for evaluation for safety for discharge versus admission was requested. Kyle is well-known to this travel writer from previous presentations all of which surrounded him not having access to Suboxone. After a brief conversation about the fact that the last time he was seen we agreed that we would not go down this path again of reconnecting him with Suboxone. We agreed that we would not support his lack of follow-through by baling him out so to speak. He agreed and accepted that he would have to go and follow through to get the Suboxone treatment he reports is successful for him. Below see enclosed excerpt from his last evaluation as he denies any substantive changes to his psychosocial circumstances. Per his last [facility] eval 10/10/19: History of Present Illness Kyle Cartwright is a 39 year old male who presented to the emergency room yesterday after a reported episode of confusion and a fall that he says resulted in him having a seizure. Initially the evaluation centered around that but then later he became very tearful talking about the of his best friend and his girlfriend also succumbing to addiction. He was really upset about the fact that his Suboxone had run out and he was now struggling with sobriety and endorsed suicidal thoughts and was intermittently aggressive and acting out and was unable to contract for safety. He got to the unit and acclimated to the individual group and family therapies provided. We were able to figure out some options to get him an appointment within 2 weeks. We agreed that we will give him a 2 week supply of Suboxone and that we would not do that again unless he has actually connected with outpatient provider. He reports that he had tried to get connected with a warrant given appointments for 4-5 weeks so the 2 week supply previously had was not helpful. Once we were able to set those things up he was denying all lethality and endorsed a desire to go home. Excerpts from consult from yesterday is included below for some recent historical data. Psychiatric history: He's had over 20 hospitalizations here and is unclear if these constellation of other places. He's been on multiple medications. Substance abuse history: He is struggling with opiate and alcohol addiction for some time is currently on agonist therapy for his opiates. Psychosocial history: He currently lives with his mother reports that they have a good relationship and sometimes she is a challenge for him. He also reports having children that he is responsible for. No recent history of working. Per [facility] consult yesterday 10/09/2019: Psych Consult HPI History of Present Illness Kyle Cartwright is a 39 year old male Kyle presents today after a significantly chaotic presentation to the emergency room wherein he presented with reports that he had fallen and hit his head and had a seizure, and that he was currently postictal. Full evaluation left significant questions as to whether that story was accurate. He initially had endorsed that he wanted to go to the neuropsych unit, however, after some time passed, he reversed position and said he did not want to go to the neuropsych unit. He reported that he was going to get aggressive with one of the security guards and, at one point, a code was called because of how aggressive he was being. I was called in to consult on the case and began discussing his situation. He reported he was struggling with his relationship with his mother and that she was giving him a hard time. He also reported that he was struggling with his recovery because he was on Suboxone and then was not able to get Suboxone, and he is just really feeling like everything has gone the wrong way in his life, and he just does not know if it is worth it. We discussed his issue in getting a Suboxone treatment facility. In fact, I contacted some of the social workers and was just looking at what our options were. He was tearful at times and was somewhat ambivalent about the actual level of lethality that he was feeling. We discussed the risks, benefits, and alternatives of admission versus discharge, and he understood and agreed to proceed as is documented in this note. Below you will find the discharge summary from his last evaluation with Dr. Jeter; within that he noted that there had not been any changes in his psychosocial circumstances. Per his DC summary from August: Hospital Course Discharge Summary Chief complaint: I've been doing heroin off and on for the past 3 years but really heavily for the past month. History of present illness:Kyle Cartwright is a 38 year old male He reports that he has been doing heroin and is ashamed about it. He has not told anybody that revealed one how frequently he was shooting heroin. He says using very heavily in the past month and is in heroin withdrawal at this time. he reports using Clean needles and multiple times a day. He says he has been to a rehabilitation program and was treated successfully with Suboxone. He has not had any heroin in the last 4 days and is currently in heroin withdrawal. He was admitted on the strength of 96 hour affidavit filed by his mother. The patient and his mother apparently have a very close relationship as they live together. Mother states that he is not medically stable. He has been verbally abusive to she and his and stole money from her. He has threatened his ex-girlfriend. Mother makes no mention is heroin. Patient states that he has hit his heroin is his mother is ashamed of his behavior. He says that this is going to bring her heart and that they will have a very difficult time with relationship when she finds out that he has been using. He otherwise denies psychiatric symptoms. He had a friend who from a heroin overdose. He specifically does not want to . He denies any suicidal or homicidal threats. He is not angry at his mother for filing affidavit is embarrassed that he made statements that she says that he made. Diagnoses: Opiate dependence Opiate withdrawal Major Depression ? recurrent, currently in remission Antisocial personality traits Seizure disorder?by history, type unknown Assessment: The patient presents as a 38-year-old man in the throes of heroin addiction and emotional distress over the fact that it is having on his family. The intent at this time is to treat him for opiate withdrawal and assess potential for entry into a rehabilitation program. There is no indication of imminent risk to self or others as evidenced by information in this interview and his past mental health treatment. He will be restarted on previously effective medications and treated for symptoms of opiate withdrawal. Treatment plan: Due to the psychiatric conditions and treatment listed in the Assessment and Plan - the patient requires continued hospitalization. Will provide a safe and therapeutic environment for patient.. Will continue inpatient treatment to allow for medication adjustment and monitoring. Will continue q15 min safety checks. The patient presents a 38-year-old man in the throes of heroin addiction and emotional distress over the fact that it is having on his family. The intent at this time is to treat him for opiate withdrawal and assess potential for entry into a rehabilitation program. There is no indication of imminent risk to self or others as evidenced by information in this interview and his past mental health treatment. He will be restarted on previously effective medications and treated for symptoms of opiate withdrawal. Restart Keppra 250 mg twice a day, Suboxone at 4/1 milligram twice a day, clonidine 0.1 mg 3 times a day, and Seroquel 300 mg at bedtime. Hospital day #3:Will continue current medications and monitor for medication side effects. Suboxone 4/1 twice a day, Seroquel 300 mg at bedtime, Keppra 250 mg twice a day, and clonidine 0.1 mg 3 times a day. HD#4: Pt continues to show signs of hypomania though he denies subjective sense of racing thoughts, impulsivity, hypersexuality. Will await to have infomraiton from collateral sources to make diagnosis. PLAN: increase Seroquel to 600 mg at bedtime and reduce clonidine. HD#5: Patient reports that he is responding well to current medication treatment. He has a great number of questions regarding the rehab program he wants. All of the questions are reasonable but his inability to let things go indicate his degree of perplexity. His mother is also present and we discussed his pattern of moods. She describes him as having elevated episodes and low episodes. But none reached the level of bipolar karla. He does not go days without sleep. He is not impulsive when he is elevated. He does become violent during hsi down phases which would be consistent with clinical depression. On the other hand, she is unable to describe these in absence of his substance use. PLAN: add Celexa 20 mg at bedtime and change clonidine to 0.2 mg at bedtime Mental status examination: Is an overweight versus obese white male with adequate rest, grooming and eye contact. No abnormal movements cooperative with exam in no acute distress. Speech was normal rate and volume. Mood described as better affect congruent. Thought process organized. Thought content: Patient denied any suicidal or homicidal ideations, there were no delusions reportedly noted, he denied any auditory or visual hallucinations. Attention and concentration were intact and memory was mostly reliable but none were formally tested. He is alert and oriented ?3. Insight and judgment are limited but improving. PFSH NPU PFSH: Medical History Alcoholism Anxiety Bipolar disorder Chronic back pain Depression GI bleed Hepatitis IBS (irritable bowel syndrome) Intermittent explosive disorder PTSD (post-traumatic stress disorder) Rectal bleed Seizure disorder Substance abuse Suicidal ideation Suicide attempt Surgical History History of back surgery Social History Smoking and tobacco status: smoker, details unknown Current gender identity: Male Inpatient hospitalization is no longer medically necessary or the clinically appropriate intervention at this time. Plan for managing his medication and this acute crisis were worked out with his outpatient provider. He is able to contract for safety and presents no credible lethality. Given his recent presentations malingering has to be a diagnosis noted. Meds NPU Home Medications Medication Instructions Recorded Confirmed Last Taken Type aspirin 81 mg PO DAILY 11/15/19 05/16/20 05/16/20 History levetiracetam [Keppra] 250 mg PO BID 02/26/20 05/16/20 05/16/20 History buprenorphine 4 mg-naloxone 1 mg 1 film SUBLINGUAL DAILY #7 each 04/29/20 05/16/20 Unknown Rx sublingual film clonidine HCl 0.1 mg tablet 0.2 mg PO TID tab 05/10/20 05/16/20 05/16/20 History quetiapine 400 mg tablet 600 mg PO BEDTIME tab 05/10/20 05/16/20 05/15/20 History citalopram 40 mg PO DAILY 05/16/20 05/16/20 05/15/20 History Allergies Allergy/AdvReac Type Severity Reaction Status Date / Time No Known Allergies Allergy Verified 05/10/20 16:14 PFSH NPU PFSH: Medical History (Updated 05/16/20 @ 11:40 by Mar Black MD) Alcoholism Anxiety Bipolar disorder Chronic back pain Depression GI bleed Hepatitis IBS (irritable bowel syndrome) Intermittent explosive disorder PTSD (post-traumatic stress disorder) Rectal bleed Seizure disorder Substance abuse Suicidal ideation Suicide attempt Surgical History History of back surgery Social History Smoking and tobacco status: smoker, details unknown Current gender identity: Male Mental Status Exam MSE Comments: This is an overweight versus obese white female with adequate dress, grooming and eye contact. No abnormal movements except for mild psychomotor retardation. Cooperative with exam in no acute distress. Speech was normal rate and volume. Mood described as okay affect congruent. Thought process organized. Thought content: Patient denied any suicidal or homicidal ideations, there were no delusions reported or noted, he denies any auditory or visual hallucinations. Attention and concentration were intact and memory was unreliable but none were formally tested. He is alert and oriented ?3. Insight and judgment are limited and impulse control is limited. Vitals/I&O/Wt Last Vital Signs Temp 97.8 F 05/17/20 06:00 Pulse 86 05/17/20 06:00 Resp 18 05/17/20 06:00 BP 111/69 05/17/20 06:00 Pulse Ox 93 05/17/20 06:00 Weight last 48 hrs Weight 130.635 kg Data NPU : 05/16/20 10:39 05/16/20 10:39 A&P Assessment and plan (1) Malingering: Status: Acute (2) Opioid use disorder, severe, in early remission, on maintenance therapy, dependence: Status: Acute (3) Antisocial personality disorder: Status: Acute (4) Depression: Status: Acute Qualifiers: Depression Type: unspecified Qualified Code(s): F32.9 - Major depressive disorder, single episode, unspecified Additional A&P Information Kyle presented to the emergency department reporting suicidality, depression and inability to contract for safety but is known through his antisocial personality disorder, malingering and opiate use disorder which often drives his presentations, who presents now requesting discharge since we are not giving him Suboxone. 1. Continue current medication. 2. Continue every 15 minute checks for safety. 3. Encourage individual, group and milieu therapy. 4. Patient is absent credible lethality and clearly interested in getting a dose of Suboxone given that he doesn't have it versus being here for treatment so he will be allowed to leave AMA. 5. Encourage sober living treatment advised level care to which she is willing to commit. Involuntary Hold Information 96 Hour Hold: 96 Hour Involuntary Admission: No Attestations NPU Medical Necessity Statement*: Inpatient hospitalization is no longer medically necessary or the clinically appropriate intervention at this time. He is seeking Suboxone and malingering and asking to leave AMA so he will be discharged. Coding Level of Care Code Acute Gasoline Attendant for Edmond Hwang Diagnoses Malingering Z76.5 Opioid use disorder, severe, in early remission, on maintenance therapy, dependence F11.21 Antisocial personality disorder F60.2 Depression F32.9 Depression Type: unspecified
[2020-05-17 12:02] VITALS: BP 111/69; PULSE 86; RESP 18; TEMP 36.6; O2SAT 93
== END 2020-05-17 14:01 | disposition left against medical advice (07) | DRG 881 ==
LOC: ER 11:53 → NP 12:07
PROVIDERS: Admitting Provider Psychiatry & Neurology Psychiatry; Emergency Provider Emergency Medicine; Visit Provider Psychiatry & Neurology Psychiatry
DX: F32.9 Major depressive disorder, single episode, unspecified (principal); R45.851 Suicidal ideations; F11.20 Opioid dependence, uncomplicated; F11.23 Opioid dependence with withdrawal; Z53.29 Procedure and treatment not carried out because of patient's decision for other reasons; Z76.5 Malingerer [conscious simulation]; F60.2 Antisocial personality disorder; E66.9 Obesity, unspecified; Z68.33 Body mass index [BMI] 33.0-33.9, adult; G89.29 Other chronic pain; M45.4 Ankylosing spondylitis of thoracic region; Z91.5 Personal history of self-harm; F17.210 Nicotine dependence, cigarettes, uncomplicated
CPT/HCPCS: 12345; 36415; 80053; 80306; 80307; 85025; 99284

== ENCOUNTER → 2020-05-18 15:38 | Outpatient (BNVA) | payer MEDICAID, SELFPAY | PROVIDERS: Visit Provider Psychiatry & Neurology Psychiatry | DX: F60.2 Antisocial personality disorder (principal); F11.21 Opioid dependence, in remission | CPT/HCPCS: 99213 ==

== ENCOUNTER 2020-06-19 16:49 | Emergency (ER) | payer MEDICAID, SELFPAY ==
[2020-06-19 17:07] VITALS: BP 141/101; PULSE 118; RESP 14; TEMP 36.9; O2SAT 95; BMI 33.2
--- NOTE | 2020-06-19 17:10 | W.ED.PSYCH ---
HPI - Psych General: Chief Complaint: Psychiatric Symptoms Stated Complaint: Suicidal/Anger Issues Time Seen by Provider: 06/19/20 17:01 Source: patient Mode of arrival: ambulatory Limitations: no limitations History of Present Illness: HPI Narrative: 39-year-old male who has a long psychiatric history he states he is out of his psychiatric meds. He states that he ran out today. He states he needs a medication refill. He denies any suicidal or homicidal thoughts. Denies any other complaints besides wanting his meds refilled Associated symptoms: Deny depression Review of Systems Const: Denies: fever(s), chills, body aches or change in appetite Eyes: Denies: blurry vision or eye discomfort ENMT: Denies: throat pain or dental pain Card: Denies: chest pain Resp: Denies: dyspnea GI: Denies: abdominal pain, nausea, vomiting or diarrhea : Denies: dysuria Musc: Denies: neck pain or back pain Skin/Breast: Denies: rash Neuro: Denies: headache(s) Psych: Denies: depression Willy/Lymph: Denies: easy bruising All/Imm: Denies: urticaria PFSH ED PFSH: Medical History Alcoholism Anxiety Bipolar disorder Chronic back pain Depression GI bleed Hepatitis IBS (irritable bowel syndrome) Intermittent explosive disorder PTSD (post-traumatic stress disorder) Rectal bleed Seizure disorder Substance abuse Suicidal ideation Suicide attempt Surgical History History of back surgery Social History Smoking and tobacco status: current every day smoker smokeless tobacco Smokeless tobacco user: snuff Smokeless tobacco details: 1 can/2 weeks Quit status (tobacco): not considering quitting Second hand smoke exposure: No Current gender identity: Male Physical Exam Const: COMMON NORMALS: no acute distress, patient oriented x3 and healthy appearing HENMT: COMMON NORMALS: normocephalic and atraumatic HEAD & SCALP: normocephalic and atraumatic Eye: COMMON NORMALS: Equal, round and reactive pupils present and EOMs intact bilaterally PUPIL: Yes Equal, round and reactive pupils present Neck/C-Spine: COMMON NORMALS: full ROM and supple Chest: COMMONS NORMALS: normal inspection of the chest and normal palpation of entire chest wall Resp: COMMON NORMALS: normal respiratory effort, No retractions, No use of accessory muscles and clear to auscultation bilaterally AUSCULTATION: clear to auscultation bilaterally Cardio: COMMON NORMALS: regular rate, regular rhythm and No murmurs present (Cardio) RATE: regular rate RHYTHM: regular rhythm GI: COMMON NORMALS: Normal to inspection, nondistended, normoactive bowel sounds present, Soft to palpation, non-tender and no masses PALPATION: Yes Soft to palpation Extremity: COMMON NORMALS: normal to inspection and full ROM Neuro: COMMON NORMALS: patient oriented x3, moves all extremities and no focal motor deficits Psych: COMMON NORMALS: mental status grossly normal, Normal thought process present and cooperative THOUGHT PROCESS: Normal thought process present Skin: COMMON NORMALS: no rashes or lesions noted and no wounds GENERAL SKIN EXAM: no rashes or lesions noted MDM - Psych MDM Narrative: Medical decision making narrative: Kyle presents here with medication refill. He is well-appearing here and is not suicidal or homicidal. Will write him prescriptions for his meds and he is to follow-up his PCP and return if worsening. He understands agrees to plan. Discharge Plan Discharge Patient Disposition: Home Clinical Impression: Medication refill Condition: Stable Prescriptions: New alprazolam 1 mg tablet 1 mg PO TID PRN (Reason: anxiety) Qty: 15 RF: 0 Continued clonidine HCl 0.1 mg tablet 0.2 mg PO TID Qty: 20 RF: 0 Seroquel 300 mg tablet 600 mg PO .HS Qty: 20 RF: 2 Keppra 500 mg tablet 250 mg PO BID Qty: 14 RF: 0 citalopram 20 mg tablet 40 mg PO DAILY Qty: 10 RF: 0 No Action aspirin 81 mg Tablet,Delayed Release (Dr/Ec) 81 mg PO DAILY RF: 0 Discharge Orders: Discharge ED (Routine); Ordered 06/19/20 Ordered By: Mar Black Discharge Diet: Advance as tolerated Discharge Activity: Resume usual activity Patient Instructions: Anxiety (ED) Coding Level of Care Code ED Senior Backup Administrator for Edmond Hwang
== END 2020-06-19 17:28 | disposition home or self-care (01) ==
PROVIDERS: Emergency Provider Emergency Medicine
DX: Z76.0 Encounter for issue of repeat prescription (principal); Z79.82 Long term (current) use of aspirin; F17.220 Nicotine dependence, chewing tobacco, uncomplicated
CPT/HCPCS: 12345; 99281

== ENCOUNTER 2020-06-19 18:46 | Emergency (ER) | payer MEDICAID, SELFPAY ==
[2020-06-19 18:54] VITALS: BP 129/102; PULSE 107; RESP 18; TEMP 36.7; O2SAT 92; BMI 32.9
[2020-06-19 19:37] LABS: Basophils # 0.1 10^3/uL (0.0-0.1); Basophils % 0.9 %; Eosinophils # 0.3 10^3/uL (0.0-0.8); Eosinophils % 3.6 %; Hematocrit 46.4 % (42.0-52.0); Hemoglobin 15.6 g/dL (11.7-16.6); Lymphocytes # 2.3 10^3/uL (0.8-4.8); Lymphocytes % 32.8 %; Mean Corpuscular HGB Conc 33.6 g/dL (30.0-36.0); Mean Corpuscular Hemoglobin 30.2 pg (28.0-34.0); Mean Corpuscular Volume 89.7 fL (80-94); Mean Platelet Volume 10.7 fL (7.4-10.4); Monocytes # 0.6 10^3/uL (0.2-0.9); Monocytes % 8.7 %; Neutrophils # 3.65 10^3/uL (1.8-7.7); Neutrophils % 53.1 %; Nucleated Red Blood Cells % 0 %; Platelet Count 202 10^3/cmm (130-400); Red Blood Count 5.17 10^6/uL (4.1-5.3); Red Cell Distribution Width 13.2 % (12.1-15.1); White Blood Count 6.9 10^3/uL (4.0-10.0)
[2020-06-19 19:57] LABS: Alanine Aminotransferase 76 U/L (0-41); Albumin Level 4.1 g/dL (3.5-5.2); Alcohol Level 44 mg/dL (0-10); Alkaline Phosphatase 135 IU/L (40-130); Blood Urea Nitrogen 11 mg/dL (6-20); Calcium 9.3 mg/dL (8.5-10.5); Carbon Dioxide 24 mmol/L (22-29); Chloride 103 mmol/L (98-107); Globulin 2.9 g/dL (1.3-4.6); Glomerular Filtration Rate 83.6 mL/min (90-130); Glucose 101 mg/dL (65-115); Osmolality Calculated 286 mOsm/kg (285-295); Sodium 138 mmol/L (136-145); Total Bilirubin 0.2 mg/dL (0.15-1.2)
[2020-06-19 20:02] LABS: Acetaminophen < 5.0 ug/mL (10-30); Salicylate < 0.3 mg/dL (3-10)
[2020-06-19 20:03] LABS: Anion Gap 15.4 (5-19); Aspartate Amino Transferase 37 U/L (0-40); Potassium 4.4 mmol/L (3.5-5.1)
[2020-06-19 20:09] LABS: Add Urine Microscopic? NO
[2020-06-19 20:11] LABS: Bilirubin Urine Neg (Negative); Blood Urine Neg (Negative); Glucose Urine UA Norm (Normal); Ketones Urine Negative (Negative); Leukocyte Esterase Urine Negative (Negative); Nitrate Urine Negative (Negative); Protein Urine Neg (Negative); Specific Gravity, Urine 1.005 (1.005-1.030); Urine Appearance Clear (CLEAR); Urine Color Yellow (Yellow); Urobilinogen Urine Norm (Negative); pH Urine 6.5 (5-7)
--- NOTE | 2020-06-19 20:18 | W.ED.PSYCH ---
HPI - Psych General: Chief Complaint: Psychiatric Symptoms Stated Complaint: AMS; SI Time Seen by Provider: 06/19/20 18:49 History of Present Illness: HPI Narrative: 39-year-old male well-known to the ER. He presents after a seizure in [facility]. He had gone to fill the scripts that were previously given to him a few hours before here in the ER. He was unable to fill them. He presents now stating that he is suicidal . He has no specific plan. He has had prior attempts at suicide before. He denies any recent illness, including fever, vomiting, cough, etc. MD complaint: suicidal ideation and feels depressed Onset (ago): minute(s) Duration: constant History of same: Yes Relieving factors: none Exacerbating factors: none Context: not taking psychiatric medications Associated psychiatric symptoms: depression and suicidal ideation Associated symptoms: Deny visual hallucinations, delusions or homicidal ideation Treatments prior to arrival: none If self harm: admits thoughts of self harm Review of Systems Const: Denies: fever(s) or chills ENMT: Denies: ear or mastoid pain, nasal discharge or nasal congestion Card: Denies: chest pain, palpitations or irregular heart rhythm Resp: Denies: dyspnea, productive cough, non-productive cough or wheezing GI: Denies: abdominal pain, nausea, vomiting or hematemesis Psych: Denies: visual hallucinations or homicidal ideation [facility] ED PFSH: Medical History (Updated 06/19/20 @ 20:20 by Fei Chan DO) Alcoholism Anxiety Bipolar disorder Chronic back pain Depression GI bleed Hepatitis IBS (irritable bowel syndrome) Intermittent explosive disorder PTSD (post-traumatic stress disorder) Rectal bleed Seizure disorder Substance abuse Suicidal ideation Suicide attempt Surgical History History of back surgery Social History Smoking and tobacco status: current every day smoker smokeless tobacco Smokeless tobacco user: snuff Smokeless tobacco details: 1 can/2 weeks Quit status (tobacco): not considering quitting Second hand smoke exposure: No Current gender identity: Male Physical Exam Const: GENERAL APPEARANCE: cooperative and comfortable ORIENTATION/CONSCIOUSNESS: Yes oriented to person, Yes oriented to place and Yes oriented to time HENMT: COMMON NORMALS: normocephalic, external ears normal and Normal external nose present HEAD & SCALP: normocephalic FACE & SINUS: normal facial exam NOSE: Normal external nose present and No nasal discharge present EXTERNAL EAR: Yes external ears normal Eye: COMMON NORMALS: Equal, round and reactive pupils present, EOMs intact bilaterally and conjunctivae normal EYELID: eyelids normal CONJUNCTIVA: Yes conjunctivae normal PUPIL: Yes Equal, round and reactive pupils present Neck/C-Spine: GENERAL: No tracheal deviation Chest: COMMONS NORMALS: normal inspection of the chest CHEST: No tenderness Resp: COMMON NORMALS: clear to auscultation bilaterally EFFORT & INSPECTION: No tachypneic, No respiratory distress, No retractions, No uses accessory muscles and No tracheal deviation AUSCULTATION: clear to auscultation bilaterally, no rhonchi, no wheezes and lung sounds not diminished Cardio: COMMON NORMALS: regular rate and regular rhythm RATE: regular rate RHYTHM: regular rhythm HEART SOUNDS: no murmurs PERIPHERAL PULSES: radial pulses present GI: INSPECTION: No abdominal distension AUSCULTATION: No Hyperactive bowel sounds present and No Hypoactive bowel sounds present PALPATION: No Guarding due to palpation present (GI) and No Rigid due to palpation PERCUSSION: no dullness to percussion and no tympanic to percussion Neuro: SENSORIUM/ORIENTATION: Yes oriented to person, Yes oriented to place and Yes oriented to time Psych: COMMON NORMALS: mental status grossly normal THOUGHT CONTENT: No delusions Skin: COMMON NORMALS: no rashes or lesions noted GENERAL SKIN EXAM: no rashes or lesions noted MDM - Psych MDM Narrative: Medical decision making narrative: 39-year-old male here with suicidal ideation. He does not appear ill after his seizure . He has no other complaints at this time. His labs are stable. I spoke with the psychiatrist about this patient, who interviewed the patient via telemedicine. As it turns out, Kyle is out of his Suboxone, and wanted to come into the [facility] to get a couple of doses to hold him over until he can get a new prescription. Dr. Erwin suspected malingering, and I tend to agree. He is discharged to follow-up as an outpatient. Lab Data: Labs: Lab Results 06/19/20 06/19/20 06/19/20 Range/Units 19:24 19:24 19:42 WBC 6.9 (4.0-10.0) 10^3/ uL RBC 5.17 (4.1-5.3) 10^6/u L Hgb 15.6 (11.7-16.6) g/dL Hct 46.4 (42.0-52.0) % MCV 89.7 (80-94) fL MCH 30.2 (28.0-34.0) pg MCHC 33.6 (30.0-36.0) g/dL RDW 13.2 (12.1-15.1) % Plt Count 202 (130-400) 10^3/c mm MPV 10.7 H (7.4-10.4) fL Neut % (Auto) 53.1 % Lymph % (Auto) 32.8 % [place] % (Auto) 8.7 % Eos % (Auto) 3.6 % Baso % (Auto) 0.9 % Neut # (Auto) 3.65 (1.8-7.7) 10^3/u L Lymph # (Auto) 2.3 (0.8-4.8) 10^3/u L [place] # (Auto) 0.6 (0.2-0.9) 10^3/u L Eos # (Auto) 0.3 (0.0-0.8) 10^3/u L Baso # (Auto) 0.1 (0.0-0.1) 10^3/u L Nucleated RBC % (a uto) 0 % Nucleated RBCs # 0.0 /100WBC Sodium 138 (136-145) mmol/L Potassium 4.4 (3.5-5.1) mmol/L Chloride 103 (98-107) mmol/L Carbon Dioxide 24 (22-29) mmol/L Anion Gap 15.4 (5-19) BUN 11 (6-20) mg/dL Creatinine 1.0 (0.7-1.2) mg/dL GFR Calculation 83.6 L (90-130) mL/min Glucose 101 (65-115) mg/dL Calculated Osmolal ity 286 (285-295) mOsm/k g Calcium 9.3 (8.5-10.5) mg/dL Total Bilirubin 0.2 (0.15-1.2) mg/dL AST 37 (0-40) U/L ALT 76 H (0-41) U/L Alkaline Phosphata se 135 H (40-130) IU/L Total Protein 7.0 (6.6-8.7) g/dL Albumin 4.1 (3.5-5.2) g/dL Globulin 2.9 (1.3-4.6) g/dL Urine Color Yellow (Yellow) Urine Appearance Clear (CLEAR) Urine pH 6.5 (5-7) Ur Specific Gravit y 1.005 (1.005-1.030) Urine Protein Neg (Negative) Urine Glucose (UA) Norm (Normal) Urine Ketones Negative (Negative) Urine Blood Neg (Negative) Urine Nitrate Negative (Negative) Urine Bilirubin Neg (Negative) Urine Urobilinogen Norm (Negative) mg/dL Ur Leukocyte [place] Negative (Negative) Salicylates < 0.3 L (3-10) mg/dL Urine Opiates Scre en (Negative) ng/mL Acetaminophen < 5.0 L (10-30) ug/mL Ur Barbiturates Sc reen (Negative) ng/mL Ur Phencyclidine S crn (Negative) ng/mL Ur Amphetamines Sc reen (Negative) ng/mL U Benzodiazepines Scrn (Negative) ng/mL Urine Cocaine Scre en (Negative) ng/mL U Marijuana (THC) Screen (Negative) ng/mL Ethyl Alcohol 44 H (0-10) mg/dL 06/19/20 Range/Units 19:42 WBC (4.0-10.0) 10^3/ uL RBC (4.1-5.3) 10^6/u L Hgb (11.7-16.6) g/dL Hct (42.0-52.0) % MCV (80-94) fL MCH (28.0-34.0) pg MCHC (30.0-36.0) g/dL RDW (12.1-15.1) % Plt Count (130-400) 10^3/c mm MPV (7.4-10.4) fL Neut % (Auto) % Lymph % (Auto) % [place] % (Auto) % Eos % (Auto) % Baso % (Auto) % Neut # (Auto) (1.8-7.7) 10^3/u L Lymph # (Auto) (0.8-4.8) 10^3/u L [place] # (Auto) (0.2-0.9) 10^3/u L Eos # (Auto) (0.0-0.8) 10^3/u L Baso # (Auto) (0.0-0.1) 10^3/u L Nucleated RBC % (a uto) % Nucleated RBCs # /100WBC Sodium (136-145) mmol/L Potassium (3.5-5.1) mmol/L Chloride (98-107) mmol/L Carbon Dioxide (22-29) mmol/L Anion Gap (5-19) BUN (6-20) mg/dL Creatinine (0.7-1.2) mg/dL GFR Calculation (90-130) mL/min Glucose (65-115) mg/dL Calculated Osmolal ity (285-295) mOsm/k g Calcium (8.5-10.5) mg/dL Total Bilirubin (0.15-1.2) mg/dL AST (0-40) U/L ALT (0-41) U/L Alkaline Phosphata se (40-130) IU/L Total Protein (6.6-8.7) g/dL Albumin (3.5-5.2) g/dL Globulin (1.3-4.6) g/dL Urine Color (Yellow) Urine Appearance (CLEAR) Urine pH (5-7) Ur Specific Gravit y (1.005-1.030) Urine Protein (Negative) Urine Glucose (UA) (Normal) Urine Ketones (Negative) Urine Blood (Negative) Urine Nitrate (Negative) Urine Bilirubin (Negative) Urine Urobilinogen (Negative) mg/dL Ur Leukocyte [place] (Negative) Salicylates (3-10) mg/dL Urine Opiates Scre en Negative (Negative) ng/mL Acetaminophen (10-30) ug/mL Ur Barbiturates Sc reen Negative (Negative) ng/mL Ur Phencyclidine S crn Negative (Negative) ng/mL Ur Amphetamines Sc reen Negative (Negative) ng/mL U Benzodiazepines Scrn Positive H (Negative) ng/mL Urine Cocaine Scre en Negative (Negative) ng/mL U Marijuana (THC) Screen Negative (Negative) ng/mL Ethyl Alcohol (0-10) mg/dL Discharge Plan Discharge Patient Disposition: Home Clinical Impression: Depression Qualifiers: Depression Type: major depressive disorder Major depression recurrence: recurrent Active/Remission status: currently active Major depression episode severity: moderate Qualified Code(s): F33.1 - Major depressive disorder, recurrent, moderate Condition: Stable Prescriptions: No Action aspirin 81 mg Tablet,Delayed Release (Dr/Ec) 81 mg PO DAILY RF: 0 alprazolam 1 mg tablet 1 mg PO TID PRN (Reason: anxiety) Qty: 15 RF: 0 clonidine HCl 0.1 mg tablet 0.2 mg PO TID Qty: 20 RF: 0 Seroquel 300 mg tablet 600 mg PO .HS Qty: 20 RF: 2 Keppra 500 mg tablet 250 mg PO BID Qty: 14 RF: 0 citalopram 20 mg tablet 40 mg PO DAILY Qty: 10 RF: 0 Discharge Orders: Discharge ED (Routine); Ordered 06/19/20 Ordered By: Fei Chan Discharge Diet: Usual diet Patient Instructions: Depression (ED) Coding Level of Care Code ED Naval Architect Specialist for Edmond Hwang
[2020-06-19 20:20] LABS: Amphetamines Screen Urine Negative (Negative); Barbiturates Screen Urine Negative (Negative); Benzodiazepines Screen Urine Positive (Negative); Cocaine Screen Urine Negative (Negative); Opiate Screen Urine Negative (Negative); PCP Screen Urine Negative (Negative); THC Screen Urine Negative (Negative)
[2020-06-19 20:39] VITALS: BP 125/99; PULSE 101; RESP 17; O2SAT 94
== END 2020-06-19 20:39 | disposition home or self-care (01) ==
PROVIDERS: Emergency Provider Emergency Medicine
DX: F33.1 Major depressive disorder, recurrent, moderate (principal); Z79.82 Long term (current) use of aspirin; F17.220 Nicotine dependence, chewing tobacco, uncomplicated
CPT/HCPCS: 12345; 80053; 80306; 80307; 81003; 85025; 99284

== ENCOUNTER 2020-06-24 16:09 | Inpatient (IN) | payer MEDICAID, SELFPAY ==
[2020-06-24 16:30] VITALS: BP 158/108; PULSE 124; RESP 16; TEMP 36.7; O2SAT 96; BMI 32.3
--- NOTE | 2020-06-24 17:19 | ED_ITS ---
Documented by User: Nilson Sims MD, [facility] [place] 06/24/[place] 22:30 HPI - Psych General: Chief Complaint: Psychiatric Symptoms Stated Complaint: YUE BAILEY Time Seen by Provider: 06/24/20 16:38 Source: patient Mode of arrival: ambulatory Limitations: no limitations History of Present Illness: HPI Narrative: Gentleman well-known to this emergency department who presents to the emergency room with complaints of suicidal ideation. He states that today is the anniversary of his 's and it has hit him hard. He says he feels depressed and is suicidal. He has plans to use his mother's gun to shoot himself in the head. Because of this he presents to the emergency department for evaluation for help. MD complaint: suicidal ideation and feels depressed Onset (ago): hour(s) Duration: constant History of same: Yes Relieving factors: none Exacerbating factors: none Context: significant life stressor (Today is the anniversary of his 's ) Associated symptoms: Reports depression and suicidal ideation; Deny auditory hallucinations, visual hallucinations, delusions, homicidal ideation or racing thoughts Treatments prior to arrival: none If self harm: admits thoughts of self harm and has plan (He plans to shoot himself) Review of Systems General: Reports: 10 or more systems reviewed and unremarkable except in HPI and below Const: Denies: fever(s), chills or body aches Eyes: Denies: change in vision or blurry vision ENMT: Denies: throat pain, enlarged tonsils, odynophagia, hoarseness, mouth pain or swelling of lips/tongue Card: Denies: palpitations, irregular heart rhythm, edema or swelling of feet/ankles Resp: Denies: dyspnea, productive cough or non-productive cough GI: Denies: abdominal pain, nausea or vomiting : Denies: flank pain, dysuria, urinary frequency, urinary urgency or urinary hesitancy Musc: Denies: neck pain, back pain or extremity swelling Skin/Breast: Denies: rash, pruritus or erythema Neuro: Denies: headache(s), numbness in extremities or weakness in extremities Psych: Reports: depression and suicidal ideation; Denies: visual hallucinations, auditory hallucinations or homicidal ideation Endo: Denies: polyuria, polydipsia or tired all the time [facility] ED PFSH: Medical History (Updated 06/24/20 @ 22:30 by Nilson Sims MD, [facility] [place]) Alcoholism Anxiety Bipolar disorder Chronic back pain Depression GI bleed Hepatitis IBS (irritable bowel syndrome) Intermittent explosive disorder PTSD (post-traumatic stress disorder) Rectal bleed Seizure disorder Substance abuse Suicidal ideation Suicide attempt Surgical History History of back surgery Social History Smoking and tobacco status: current every day smoker smokeless tobacco Smokel ess tobacco user: snuff Smokeless tobacco details: 1 can/2 weeks Quit status (tobacco): not considering quitting Second hand smoke exposure: No Current gender identity: Male Physical Exam Const: COMMON NORMALS: no acute distress, average body habitus, patient oriented x3, no limitations, healthy appearing, alert and well nourished HENMT: COMMON NORMALS: normocephalic, atraumatic and moist oral mucous membranes HEAD & SCALP: normocephalic and atraumatic Neck/C-Spine: COMMON NORMALS: no meningeal signs and no JVD Resp: COMMON NORMALS: normal respiratory effort, No retractions, No use of accessory muscles, clear to auscultation bilaterally and percussion normal AUSCULTATION: clear to auscultation bilaterally PERCUSSION: percussion normal Cardio: COMMON NORMALS: no JVD, regular rate, regular rhythm, S1 normal heart sound present, S2 normal heart sound present, No gallops present (Cardio), No clicks present (Cardio), No murmurs present (Cardio), No rub (Cardio) and Peripheral pulses 2+ throughout RATE: regular rate RHYTHM: regular rhythm HEART SOUNDS: S1 normal heart sound present and S2 normal heart sound present PERIPHERAL PULSES: Peripheral pulses 2+ throughout GI: COMMON NORMALS: Normal to inspection, nondistended, normoactive bowel sounds present, Soft to palpation, non-tender, No hepatosplenomegaly present, no masses and no bruits PALPATION: Yes Soft to palpation and Yes No hepatosplenomegaly present Extremity: COMMON NORMALS: normal to inspection, full ROM, capillary refill normal, no calf tenderness and no pedal edema Neuro: COMMON NORMALS: patient oriented x3 SENSORIUM/ORIENTATION: Yes alert MENINGEAL SIGNS: Yes no meningeal signs Psych: MOOD & AFFECT: Yes depressed mood and Yes tearful THOUGHT CONTENT: No delusions Skin: COMMON NORMALS: no rashes or lesions noted, no wounds, turgor normal, no jaundice, no petechiae and no mottling GENERAL SKIN EXAM: no rashes or lesions noted and turgor normal MDM - Psych MDM Narrative: Medical decision making narrative: 39-year-old male who presents to the emergency department with suicidal ideation. He is medically cleared and admitted to the neuropsychiatric unit. Lab Data: Labs: Lab Results 06/24/20 06/24/20 06/24/20 Range/Units 16:55 17:10 17:10 WBC 8.9 (4.0-10.0) 10^3/ uL RBC 5.21 (4.1-5.3) 10^6/u L Hgb 15.8 (11.7-16.6) g/dL Hct 47.8 (42.0-52.0) % MCV 91.7 (80-94) fL MCH 30.3 (28.0-34.0) pg MCHC 33.1 (30.0-36.0) g/dL RDW 13.9 (12.1-15.1) % Plt Count 247 (130-400) 10^3/c mm MPV 10.7 H (7.4-10.4) fL Neut % (Auto) 61.1 % Lymph % (Auto) 27.5 % Lander % (Auto) 7.4 % Eos % (Auto) 2.1 % Baso % (Auto) 0.8 % Neut # (Auto) 5.44 (1.8-7.7) 10^3/u L Lymph # (Auto) 2.5 (0.8-4.8) 10^3/u L Lander # (Auto) 0.7 (0.2-0.9) 10^3/u L Eos # (Auto) 0.2 (0.0-0.8) 10^3/u L Baso # (Auto) 0.1 (0.0-0.1) 10^3/u L Nucleated RBC % (a uto) 0 % Nucleated RBCs # 0.0 /100WBC Sodium 139 (136-145) mmol/L Potassium 3.9 (3.5-5.1) mmol/L Chloride 103 (98-107) mmol/L Carbon Dioxide 25 (22-29) mmol/L Anion Gap 14.9 (5-19) BUN 14 (6-20) mg/dL Creatinine 1.1 (0.7-1.2) mg/dL GFR Calculation 74.9 L (90-130) mL/min Glucose 107 (65-115) mg/dL Calculated Osmolal ity 289 (285-295) mOsm/k g Calcium 9.4 (8.5-10.5) mg/dL Total Bilirubin 0.2 (0.15-1.2) mg/dL AST 25 (0-40) U/L ALT 60 H (0-41) U/L Alkaline Phosphata se 125 (40-130) IU/L Total Protein 7.5 (6.6-8.7) g/dL Albumin 4.6 (3.5-5.2) g/dL Globulin 2.9 (1.3-4.6) g/dL TSH 1.95 (0.27-4.20) uIU/ mL Urine Color Yellow (Yellow) Urine Appearance Clear (CLEAR) Urine pH 5 (5-7) Ur Specific Gravit y 1.030 (1.005-1.030) Urine Protein Neg (Negative) Urine Glucose (UA) Norm (Normal) Urine Ketones Negative (Negative) Urine Blood Neg (Negative) Urine Nitrate Negative (Negative) Urine Bilirubin Neg (Negative) Urine Urobilinogen Norm (Negative) mg/dL Ur Leukocyte La ase Negative (Negative) Salicylates < 0.3 L (3-10) mg/dL Urine Opiates Scre en (Negative) ng/mL Acetaminophen < 5.0 L (10-30) ug/mL Ur Barbiturates Sc reen (Negative) ng/mL Ur Phencyclidine S crn (Negative) ng/mL Ur Amphetamines Sc reen (Negative) ng/mL U Benzodiazepines Scrn (Negative) ng/mL Urine Cocaine Scre en (Negative) ng/mL U Marijuana (THC) Screen (Negative) ng/mL Ethyl Alcohol < 10 (0-10) mg/dL 12/17/20 Range/Units 17:13 WBC (4.0-10.0) 10^3/ uL RBC (4.1-5.3) 10^6/u L Hgb (11.7-16.6) g/dL Hct (42.0-52.0) % MCV (80-94) fL MCH (28.0-34.0) pg MCHC (30.0-36.0) g/dL RDW (12.1-15.1) % Plt Count (130-400) 10^3/c mm MPV (7.4-10.4) fL Neut % (Auto) % Lymph % (Auto) % Lander % (Auto) % Eos % (Auto) % Baso % (Auto) % Neut # (Auto) (1.8-7.7) 10^3/u L Lymph # (Auto) (0.8-4.8) 10^3/u L Lander # (Auto) (0.2-0.9) 10^3/u L Eos # (Auto) (0.0-0.8) 10^3/u L Baso # (Auto) (0.0-0.1) 10^3/u L Nucleated RBC % (a uto) % Nucleated RBCs # /100WBC Sodium (136-145) mmol/L Potassium (3.5-5.1) mmol/L Chloride (98-107) mmol/L Carbon Dioxide (22-29) mmol/L Anion Gap (5-19) BUN (6-20) mg/dL Creatinine (0.7-1.2) mg/dL GFR Calculation (90-130) mL/min Glucose (65-115) mg/dL Calculated Osmolal ity (285-295) mOsm/k g Calcium (8.5-10.5) mg/dL Total Bilirubin (0.15-1.2) mg/dL AST (0-40) U/L ALT (0-41) U/L Alkaline Phosphata se (40-130) IU/L Total Protein (6.6-8.7) g/dL Albumin (3.5-5.2) g/dL Globulin (1.3-4.6) g/dL TSH (0.27-4.20) uIU/ mL Urine Color (Yellow) Urine Appearance (CLEAR) Urine pH (5-7) Ur Specific Gravit y (1.005-1.030) Urine Protein (Negative) Urine Glucose (UA) (Normal) Urine Ketones (Negative) Urine Blood (Negative) Urine Nitrate (Negative) Urine Bilirubin (Negative) Urine Urobilinogen (Negative) mg/dL Ur Leukocyte La ase (Negative) Salicylates (3-10) mg/dL Urine Opiates Scre en Negative (Negative) ng/mL Acetaminophen (10-30) ug/mL Ur Barbiturates Sc reen Negative (Negative) ng/mL Ur Phencyclidine S crn Negative (Negative) ng/mL Ur Amphetamines Sc reen Negative (Negative) ng/mL U Benzodiazepines Scrn Positive H (Negative) ng/mL Urine Cocaine Scre en Negative (Negative) ng/mL U Marijuana (THC) Screen Negative (Negative) ng/mL Ethyl Alcohol (0-10) mg/dL Discharge Plan Discharge Patient Disposition: Placed in Observation Admit Provider: Lewis Erwin Clinical Impression: Suicidal ideation Condition: Stable Coding Level of Care Code ED Metal Cut Off Saw Operator for Chg Fwd Exam Comprehensive Documented by User: DASHAWN Brandon 06/24/20 21:13 HPI - Psych General: Chief Complaint: Psychiatric Symptoms Stated Complaint: PYSCH EVAL Time Seen by Provider: 06/24/20 16:38 [facility] ED 2 PFS: Medical History (Updated 06/24/20 @ 22:30 by Nilson Sims MD, [facility] [place]) Alcoholism Anxiety Bipolar disorder Chronic back pain Depression GI bleed Hepatitis IBS (irritable bowel syndrome) Intermittent explosive disorder PTSD (post-traumatic stress disorder) Rectal bleed Seizure disorder Substance abuse Suicidal ideation Suicide attempt Surgical History History of back surgery Social History Smoking and tobacco status: current every day smoker smokeless tobacco Smokeless tobacco user: snuff Smokeless tobacco details: 1 can/2 weeks Quit status (tobacco): not considering quitting Second hand smoke exposure: No Current gender identity: Male MDM - Psych Lab Data: Labs: Lab Results 06/24/20 06/24/20 06/24/20 Range/Units 16:55 17:10 17:10 WBC 8.9 (4.0-10.0) 10^3/ uL RBC 5.21 (4.1-5.3) 10^6/u L Hgb 15.8 (11.7-16.6) g/dL Hct 47.8 (42.0-52.0) % MCV 91.7 (80-94) fL MCH 30.3 (28.0-34.0) pg MCHC 33.1 (30.0-36.0) g/dL RDW 13.9 (12.1-15.1) % Plt Count 247 (130-400) 10^3/c mm MPV 10.7 H (7.4-10.4) fL Neut % (Auto) 61.1 % Lymph % (Auto) 27.5 % Lander % (Auto) 7.4 % Eos % (Auto) 2.1 % Baso % (Auto) 0.8 % Neut # (Auto) 5.44 (1.8-7.7) 10^3/u L Lymph # (Auto) 2.5 (0.8-4.8) 10^3/u L Lander # (Auto) 0.7 (0.2-0.9) 10^3/u L Eos # (Auto) 0.2 (0.0-0.8) 10^3/u L Baso # (Auto) 0.1 (0.0-0.1) 10^3/u L Nucleated RBC % (a uto) 0 % Nucleated RBCs # 0.0 /100WBC Sodium 139 (136-145) mmol/L Potassium 3.9 (3.5-5.1) mmol/L Chloride 103 (98-107) mmol/L Carbon Dioxide 25 (22-29) mmol/L Anion Gap 14.9 (5-19) BUN 14 (6-20) mg/dL Creatinine 1.1 (0.7-1.2) mg/dL GFR Calculation 74.9 L (90-130) mL/min Glucose 107 (65-115) mg/dL Calculated Osmolal ity 289 (285-295) mOsm/k g Calcium 9.4 (8.5-10.5) mg/dL Total Bilirubin 0.2 (0.15-1.2) mg/dL AST 25 (0-40) U/L ALT 60 H (0-41) U/L Alkaline Phosphata se 125 (40-130) IU/L Total Protein 7.5 (6.6-8.7) g/dL Albumin 4.6 (3.5-5.2) g/dL Globulin 2.9 (1.3-4.6) g/dL TSH 1.95 (0.27-4.20) uIU/ mL Urine Color Yellow (Yellow) Urine Appearance Clear (CLEAR) Urine pH 5 (5-7) Ur Specific Gravit y 1.030 (1.005-1.030) Urine Protein Neg (Negative) Urine Glucose (UA) Norm (Normal) Urine Ketones Negative (Negative) Urine Blood Neg (Negative) Urine Nitrate Negative (Negative) Urine Bilirubin Neg (Negative) Urine Urobilinogen Norm (Negative) mg/dL Ur Leukocyte La ase Negative (Negative) Salicylates < 0.3 L (3-10) mg/dL Urine Opiates Scre en (Negative) ng/mL Acetaminophen < 5.0 L (10-30) ug/mL Ur Barbiturates Sc reen (Negative) ng/mL Ur Phencyclidine S crn (Negative) ng/mL Ur Amphetamines Sc reen (Negative) ng/mL U Benzodiazepines Scrn (Negative) ng/mL Urine Cocaine Scre en (Negative) ng/mL U Marijuana (THC) Screen (Negative) ng/mL Ethyl Alcohol < 10 (0-10) mg/dL //20 Range/Units 17:13 WBC (4.0-10.0) 10^3/ uL RBC (4.1-5.3) 10^6/u L Hgb (11.7-16.6) g/dL Hct (42.0-52.0) % MCV (80-94) fL MCH (28.0-34.0) pg MCHC (30.0-36.0) g/dL RDW (12.1-15.1) % Plt Count (130-400) 10^3/c mm MPV (7.4-10.4) fL Neut % (Auto) % Lymph % (Auto) % Lander % (Auto) % Eos % (Auto) % Baso % (Auto) % Neut # (Auto) (1.8-7.7) 10^3/u L Lymph # (Auto) (0.8-4.8) 10^3/u L Lander # (Auto) (0.2-0.9) 10^3/u L Eos # (Auto) (0.0-0.8) 10^3/u L Baso # (Auto) (0.0-0.1) 10^3/u L Nucleated RBC % (a uto) % Nucleated RBCs # /100WBC Sodium (136-145) mmol/L Potassium (3.5-5.1) mmol/L Chloride (98-107) mmol/L Carbon Dioxide (22-29) mmol/L Anion Gap (5-19) BUN (6-20) mg/dL Creatinine (0.7-1.2) mg/dL GFR Calculation (90-130) mL/min Glucose (65-115) mg/dL Calculated Osmolal ity (285-295) mOsm/k g Calcium (8.5-10.5) mg/dL Total Bilirubin (0.15-1.2) mg/dL AST (0-40) U/L ALT (0-41) U/L Alkaline Phosphata se (40-130) IU/L Total Protein (6.6-8.7) g/dL Albumin (3.5-5.2) g/dL Globulin (1.3-4.6) g/dL TSH (0.27-4.20) uIU/ mL Urine Color (Yellow) Urine Appearance (CLEAR) Urine pH (5-7) Ur Specific Gravit y (1.005-1.030) Urine Protein (Negative) Urine Glucose (UA) (Normal) Urine Ketones (Negative) Urine Blood (Negative) Urine Nitrate (Negative) Urine Bilirubin (Negative) Urine Urobilinogen (Negative) mg/dL Ur Leukocyte La ase (Negative) Salicylates (3-10) mg/dL Urine Opiates Scre en Negative (Negative) ng/mL Acetaminophen (10-30) ug/mL Ur Barbiturates Sc reen Negative (Negative) ng/mL Ur Phencyclidine S crn Negative (Negative) ng/mL Ur Amphetamines Sc reen Negative (Negative) ng/mL U Benzodiazepines Scrn Positive H (Negative) ng/mL Urine Cocaine Scre en Negative (Negative) ng/mL U Marijuana (THC) Screen Negative (Negative) ng/mL Ethyl Alcohol (0-10) mg/dL Discharge Plan Discharge Patient Disposition: Placed in Observation Admit Provider: Lewis Erwin Clinical Impression: Suicidal ideation Condition: Stable Coding Level of Care Code ED Metal Cut Off Saw Operator for Rowdyg Fwd Exam Comprehensive
[2020-06-24 17:26] LABS: Add Urine Microscopic? NO; Bilirubin Urine Neg (Negative); Blood Urine Neg (Negative); Glucose Urine UA Norm (Normal); Ketones Urine Negative (Negative); Leukocyte Esterase Urine Negative (Negative); Nitrate Urine Negative (Negative); Protein Urine Neg (Negative); Urine Appearance Clear (CLEAR); Urine Color Yellow (Yellow); Urobilinogen Urine Norm (Negative); pH Urine 5 (5-7)
[2020-06-24 17:28] LABS: Basophils # 0.1 10^3/uL (0.0-0.1); Basophils % 0.8 %; Eosinophils # 0.2 10^3/uL (0.0-0.8); Eosinophils % 2.1 %; Hematocrit 47.8 % (42.0-52.0); Hemoglobin 15.8 g/dL (11.7-16.6); Lymphocytes # 2.5 10^3/uL (0.8-4.8); Lymphocytes % 27.5 %; Mean Corpuscular HGB Conc 33.1 g/dL (30.0-36.0); Mean Corpuscular Hemoglobin 30.3 pg (28.0-34.0); Mean Corpuscular Volume 91.7 fL (80-94); Mean Platelet Volume 10.7 fL (7.4-10.4); Monocytes # 0.7 10^3/uL (0.2-0.9); Monocytes % 7.4 %; Neutrophils # 5.44 10^3/uL (1.8-7.7); Neutrophils % 61.1 %; Nucleated Red Blood Cells % 0 %; Platelet Count 247 10^3/cmm (130-400); Red Blood Count 5.21 10^6/uL (4.1-5.3); Red Cell Distribution Width 13.9 % (12.1-15.1); White Blood Count 8.9 10^3/uL (4.0-10.0)
[2020-06-24 18:02] LABS: Alanine Aminotransferase 60 U/L (0-41); Albumin Level 4.6 g/dL (3.5-5.2); Alkaline Phosphatase 125 IU/L (40-130); Anion Gap 14.9 (5-19); Aspartate Amino Transferase 25 U/L (0-40); Blood Urea Nitrogen 14 mg/dL (6-20); Calcium 9.4 mg/dL (8.5-10.5); Carbon Dioxide 25 mmol/L (22-29); Chloride 103 mmol/L (98-107); Globulin 2.9 g/dL (1.3-4.6); Glomerular Filtration Rate 74.9 mL/min (90-130); Glucose 107 mg/dL (65-115); Osmolality Calculated 289 mOsm/kg (285-295); Potassium 3.9 mmol/L (3.5-5.1); Sodium 139 mmol/L (136-145); Thyroid Stimulating Hormone 1.95 uIU/mL (0.27-4.20); Total Bilirubin 0.2 mg/dL (0.15-1.2); Total Protein 7.5 g/dL (6.6-8.7)
[2020-06-24 18:04] LABS: Acetaminophen < 5.0 ug/mL (10-30); Alcohol Level < 10 mg/dL (0-10); Salicylate < 0.3 mg/dL (3-10)
[2020-06-24 18:20] LABS: Amphetamines Screen Urine Negative (Negative); Barbiturates Screen Urine Negative (Negative); Benzodiazepines Screen Urine Positive (Negative); Cocaine Screen Urine Negative (Negative); Opiate Screen Urine Negative (Negative); PCP Screen Urine Negative (Negative); THC Screen Urine Negative (Negative)
[2020-06-24 21:38] VITALS: BP 142/118; PULSE 105; RESP 18; O2SAT 96
[2020-06-24] MEDS: LORazepam 2 mg/mL INJ 1 mL IM (21:44)
--- NOTE | 2020-06-24 22:02 | PC.NURSE ---
nurse unavailable for report at this time
--- NOTE | 2020-06-24 22:34 | PC.NURSE ---
report called to shaan mccrary
[2020-06-24 23:10] VITALS: BP 166/103; PULSE 79; RESP 18; TEMP 37.2; O2SAT 96
[2020-06-25 00:23] VITALS: BP 166/103
[2020-06-25] MEDS: cloNIDine 0.1 mg Tablet 0.2 MG PO ×2 (00:23→09:11)
[2020-06-25] MEDS: metoprolol tartrate 50 mg Tablet PO ×2 (00:23→09:10)
[2020-06-25] MEDS: quetiapine 300 mg Tablet 600 MG PO (00:23)
[2020-06-25 06:00] VITALS: BP 129/80; PULSE 84; RESP 19; TEMP 36.3; O2SAT 99
[2020-06-25 09:11] VITALS: BP 129/80
[2020-06-25] MEDS: aspirin 81 mg EC Tablet PO (09:11)
[2020-06-25] MEDS: citalopram 20 mg Tablet PO (09:11)
[2020-06-25] MEDS: levETIRAcetam 500 mg Tablet PO (09:11)
--- NOTE | 2020-06-25 09:23 | P.SS_ITS ---
Short Stay Summary Providers Date of Admit/Discharge: 06/29/20 Attending Provider: Lewis rEwin MD Chief Complaint: PYSCH EVAL HPI History of Present Illness Kyle Cartwright is a 39 year old male who presented to the emergency department with the following report: Chief Complaint: Psychiatric Symptoms Stated Complaint: YUE EVAL Time Seen by Provider: 06/24/20 16:38 Source: patient Mode of arrival: ambulatory Limitations: no limitations History of Present Illness: HPI Narrative: Gentleman well-known to this emergency department who presents to the emergency room with complaints of suicidal ideation. He states that today is the anniversary of his 's and it has hit him hard. He says he feels depressed and is suicidal. He has plans to use his mother's gun to shoot himself in the head. Because of this he presents to the emergency department for evaluation for help. complaint: suicidal ideation and feels depressed Onset (ago): hour(s) Duration: constant History of same: Yes Relieving factors: none Exacerbating factors: none Context: significant life stressor (Today is the anniversary of his 's ) Associated symptoms: Reports depression and suicidal ideation; Deny auditory hallucinations, visual hallucinations, delusions, homicidal ideation or racing thoughts Treatments prior to arrival: none If self harm: admits thoughts of self harm and has plan (He plans to shoot himself). He was admitted to the neuropsychiatric unit for definitive treatment of those issues on observation status. Kyle presented today reporting that he acknowle dges the accuracy of this pattern chart writer's assessment of his situation. We had a long conversation about his addiction as he initially described his presentation is not having anything to do with addiction we had a long conversation about how he had everything to do with his addiction. We discussed his inability currently to look in the mirror and have an honest appraisal of what is actually going on in his life. The tendency to present the story he would like to be heard versus the state of his neck. We discussed his recent hospitalizations and how this pattern has to come to an end. We discussed the fact that his only real past for success is through sobriety and at this point from what he is demonstrated, his only path of sobriety is likely through some kind of residential program of 30, 60, 90 days or more. He tried to pin his reported depression on family letting him down, but we discussed how traumatic and challenging and difficult dealing with him has to be for the nonprofessionals. We discussed the fact that given those factors his presentations to the emergency department and ultimately to the neuropsychiatric unit represent malingering as he is coming not for some plan for change in treatment but for some secondary gain. He once again presented wanting to discharge and essentially signed out immediately. He reports however that he is spoken to his mother about our conversation and the plan is for him to go to rehab after [place]. He was advised to call the office to leave a message for me when he presents to the rehab and also upon departure. He denied any substantive changes and so an excerpt of his last hospitalization evaluation which in itself represents a summary of his last several hospitalizations is included below. Per his 05/17/2020 [facility] inpatient psychiatric evaluation: History of Present Illness Kyle Cartwright is a 39 year old male who presented to the emergency department with the following report: Chief Complaint: Psychiatric Symptoms Stated Complaint: PSYCH EVAL/MEDICAL CLEARANCE PER PATIENT Time Seen by Provider: 05/16/20 10:06 Source: patient Mode of arrival: ambulatory Limitations: no limitations History of Present Illness: HPI Narrative: Kyle is a 39-year-old male who presents here with suicidality. He states that he missed his Suboxone appointment and is having suicidal thoughts as he feels like he is detoxing. He states he is having thoughts of killing self. Denies any worsening or improving factors. Denies any vomiting or diarrhea. Associated symptoms: Reports depression> He was admitted to the neuropsychiatric unit for definitive treatment of those issues. This morning he represents continuing to lobby for the Suboxone. He was advised that we only give the medication when a person is an active prescription and he was already supposed to return to see Dr. Joyner at this point. We reviewed his last hospitalization note which was very much like this situation with him presenting ultimately wanting to get Suboxone dosing due to some issue with him getting to his appointment or making the phone calls he needs to make to stay current with Dr. Joyner. An excerpt of the last note is included below as he denies any substantive changes since the last note. Plus after it became clear he was not going to get Suboxone he has to be discharged AGAINST MEDICAL ADVICE. Per his 03/03/2020 inpatient eval: History of Present Illness Kyle Cartwrgiht is a 39 year old male who Kyle presented to the emergency room with police. He was making threats to harm himself and was being aggressive and combative with police and staff. The ER doctor was unable to obtain additional information because he was uncooperative and unable to be examined. He had been tased by the police and endorsed suicidal ideation. After having an IM injection, he was calm enough to be evaluated, at and he was admitted to the neuropsychiatric unit for definitive treatment of those issues. Upon arrival, he presented as he has for the multiple hospitalizations that have occurred [place] [facility] This year alone, this is his sixth hospitalization in the neuropsychiatric unit. A pattern has emerged that each time, whether clarified or at least highly suspected, his Buprenorphine is at the heart of it. The last hospitalization we are fairly certain that he was probably low on his medications and needed to get some days in so that he would not end up running out. This time he presented reporting that his pills were up in [place], and the story changed, his mother or his girlfriend were in an accident and somehow his pills were with them, and he could not access them. But he denied that being the reason why he came. Ultimately, like ever other stay recently, once he gets here he sleeps and the first thing the next day he is ready to go. The aspect of this which is related to malingering, continues to seem higher and higher. We reviewed his last hospitalization and he denied any substantive changes, so an excerpt of that is included below. MENTAL STATUS EXAMINATION: This is an overweight versus obese white male with adequate rest, grooming and eye contact. No abnormal movements cooperative with exam in no acute distress. Speech was normal rate and volume. Mood described as pretty good, affect congruent. Thought process organized. Thought content: Patient denied any suicidal or homicidal ideations, there were no delusions reportedly noted, he denied any auditory or visual hallucinations. Attention and concentration were intact and memory was mostly reliable but none were formally tested. He is alert and oriented ?3. Insight and judgment are limited but improving. ASSESSMENT: This is a 39 year old, white male, with opiate use disorder, severe, on agonist therapy, antisocial personality disorder, depression, anxiety, and malingering, who presents reporting that he is feeling better and he wants to be discharged. RECOMMENDATION AND PLAN: Continue current medication. Encourage individual, group, and milieu therapy. Continue q-15 minute checks for safety. Recommend sober living treatment at the highest level of care to which he is willing to commit. Patient likely was never in eminent risk and is likely malingering for reasons we will not be able to tease out, and will be allowed to leave given that this pattern suggests that there is no eminent risk for lethality to self or others. Per last [facility] [place] 02/27/2020: History of Present Illness Kyle Cartwright is a 39 year old male who presented to the emergency room endorsing that a family member at past which was giving him some challenges with managing his emotions. Endorsed suicidal thinking with thoughts to shoot himself in the head. He had been reportedly drinking and was unable to contract for safety. He was admitted to the neuropsychiatric unit for definitive treatment of those issues. Recent hospitalizations have not been very productive Kyle. Most of them have centered around his Suboxone and how to obtain it when he has not been doing his do diligence as an outpatient to avoid running out of times. This time he presents reporting these depressed and feels like his medication needs to be increased, however further investigation demonstrates that he has not been taking his medication, so we had a long discussion about how increasing a medication that you're not taking can create side effects from starting it at too high a dose. He blamed his mom because she reportedly picks up his medication and sets them up for him. We had a repeat of a conversation with pattern the past about approaching treatment in [facility] trusting that the collaborating physician is capable of looking at situations without painting with broad strokes when people are not perfect. We discussed the risks benefits alternatives of considering a different SSRI and he understood and agreed to proceed as is documented in his note. The plan was she was going to try to talk to his mom and figure out which ones he's been on before, before we start 1. His other medications were restarted. We reviewed his recent documentation through our system including previous interactions with this pattern chart writer and included excerpt from that as there hasn't been substantive changes. Of note it is unclear what his angle was however he lied about his mom bringing him to the emergency room and where she lived which this pattern chart writer thinks was a way to avoid being required to bring his medication bottles fearing he might be out of his Suboxone. He reports emotions that are not consistent with his presentation. Per last [facility] [place] 01/08/2020: There was a double paste that made the NOATAK lengthy and in duplicate, I will place what should have been there below so you can ignore the previous. Also the attestation, which was omitted will be added here. HPI NPU History of present illness: Kyle Cartwright is a 39-year old male who presented to the emergency room endorsing suicidal thoughts and depression secondary to being out of his medication. He was admitted to the neuropsychiatric unit for definitive treatment of those issues. A psychiatric consult was done in the emergency room yesterday which can be found below. Today when the office opens we contacted his doctor Dr. Joyner and were able to discuss the situation and the appropriate measures to bring the most healthy, recovery oriented solution. His doctor provided a bridge prescription to last until their appointment in 8 days. We spent some time discussing the importance of him not creating emergencies for others due to his not addressing issues when they actually occur. We discussed the importance of not just discontinuing drugs of abuse but discontinuing the hospital. He denied any lethality and was able to contract for safety. Per his consult 01/07/2020: Kyle Cartwright is a 39 year old male who presented to the emergency room most likely has multiple times in the past with focus on obtaining Suboxone because of some issue that has arisen. Psychiatry was consulted to identify a safe discharge plan. He reports that he saw his doctor at [facility] and he was placed on 16 mg daily of Suboxone sublingually. He reports that the doctor gave him verbal permission to take three 8/2 mg Suboxone strips a day if he was struggling with his cravings or withdrawal. He reports that he did that and then call the doctor's office and was advised he needed to come in but he reports he was unable to get there and came here with the plan initially to be admitted. However we discussed the fact that we would not start his Suboxone without confirmation that Dr. Joyner had authorized such a behavior. After different attempts at negotiations that would lead to him getting a dose of Suboxone sooner rather than later he requested to be able to go home and tomorrow he would seek out his provider. Excerpt from his last evaluation is included below as there have been no substantive changes. We discussed the risks, benefits and alternatives of the different plans and he understood and agreed to proceed as is documented in this note. Per his 11/15/19 Eval: History of Present Illness Kyle Cartwright is a 39 year old male who presented to the emergency room requesting Suboxone. He endorsed running out of his medication and being in withdrawal having some use of other opiates to manage said withdrawal. There had been some mention suicidality, but none mentioned to the attending physician. Psychiatric consult for evaluation for safety for discharge versus admission was requested. Kyle is well-known to this pattern chart writer from previous presentations all of which surrounded him not having access to Suboxone. After a brief conversation about the fact that the last time he was seen we agreed that we would not go down this path again of reconnecting him with Suboxone. We agreed that we would not support his lack of follow-through by baling him out so to speak. He agreed and accepted that he would have to go and follow through to get the Suboxone treatment he reports is successful for him. Below see enclosed excerpt from his last evaluation as he denies any substantive changes to his psychosocial circumstances. Per his last [facility] [place] 10/10/19: History of Present Illness Kyle Cartwright is a 39 year old male who presented to the emergency room yesterday after a reported episode of confusion and a fall that he says resulted in him having a seizure. Initially the evaluation centered around that but then later he became very tearful talking about the of his best friend and his girlfriend also succumbing to addiction. He was really upset about the fact that his Suboxone had run out and he was now struggling with sobriety and endorsed suicidal thoughts and was intermittently aggressive and acting out and was unable to contract for safety. He got to the unit and acclimated to the individual group and family therapies provided. We were able to figure out some options to get him an appointment within 2 weeks. We agreed that we will give him a 2 week supply of Suboxone and that we would not do that again unless he has actually connected with outpatient provider. He reports that he had tried to get connected with a warrant given appointments for 4-5 weeks so the 2 week supply previously had was not helpful. Once we were able to set those things up he was denying all lethality and endorsed a desire to go home. Excerpts from consult from yesterday is included below for some recent historical data. Psychiatric history: He's had over 20 hospitalizations here and is unclear if these constellation of other places. He's been on multiple medications. Substance abuse history: He is struggling with opiate and alcohol addiction for some time is currently on agonist therapy for his opiates. Psychosocial history: He currently lives with his mother reports that they have a good relationship and sometimes she is a challenge for him. He also reports having children that he is responsible for. No recent history of working. Per C consult yesterday 10/09/2019: Psych Consult HPI History of Present Illness Kyle Cartwright is a 39 year old male Kyle presents today after a significantly chaotic presentation to the emergency room wherein he presented with reports that he had fallen and hit his head and had a seizure, and that he was currently postictal. Full evaluation left significant questions as to whether that story was accurate. He initially had endorsed that he wanted to go to the neuropsych unit, however, after some time passed, he reversed position and said he did not want to go to the neuropsych unit. He reported that he was going to get aggressive with one of the security guards and, at one point, a code was called because of how aggressive he was being. I was called in to consult on the case and began discussing his situation. He reported he was struggling with his relationship with his mother and that she was giving him a hard time. He also reported that he was struggling with his recovery because he was on Suboxone and then was not able to get Suboxone, and he is just really feeling like everything has gone the wrong way in his life, and he just does not know if it is worth it. We discussed his issue in getting a Suboxone treatment facility. In fact, I contacted some of the social workers and was just looking at what our options were. He was tearful at times and was somewhat ambivalent about the actual level of lethality that he was feeling. We discussed the risks, benefits, and alternatives of admission versus discharge, and he understood and agreed to proceed as is documented in this note. Below you will find the discharge summary from his last evaluation with Dr. Jeter; within that he noted that there had not been any changes in his psychosocial circumstances. Per his DC summary from August: Hospital Course Discharge Summary Chief complaint: I've been doing heroin off and on for the past 3 years but really heavily for the past month. History of present illness:Kyle Cartwright is a 38 year old male He reports that he has been doing heroin and is ashamed about it. He has not told anybody that revealed one how frequently he was shooting heroin. He says using very heavily in the past month and is in heroin withdrawal at this time. he reports using Clean needles and multiple times a day. He says he has been to a rehabilitation program and was treated successfully with Suboxone. He has not had any heroin in the last 4 days and is currently in heroin withdrawal. He was admitted on the strength of 96 hour affidavit filed by his mother. The patient and his mother apparently have a very close relationship as they live together. Mother states that he is not medically stable. He has been verbally abusive to she and his and stole money from her. He has threatened his ex-girlfriend. Mother makes no mention is heroin. Patient states that he has hit his heroin is his mother is ashamed of his behavior. He says that this is going to bring her heart and that they will have a very difficult time with relationship when she finds out that he has been using. He otherwise denies psychiatric symptoms. He had a friend who from a heroin overdose. He specifically does not want to . He denies any suicidal or homicidal threats. He is not angry at his mother for filing affidavit is embarrassed that he made statements that she says that he made. Diagnoses: Opiate dependence Opiate withdrawal Major Depression ? recurrent, currently in remission Antisocial personality traits Seizure disorder?by history, type unknown Assessment: The patient presents as a 38-year-old man in the throes of heroin addiction and emotional distress over the fact that it is having on his family. The intent at this time is to treat him for opiate withdrawal and assess potential for entry into a rehabilitation program. There is no indication of imminent risk to self or others as evidenced by information in this interview and his past mental health treatment. He will be restarted on previously effective medications and treated for symptoms of opiate withdrawal. Treatment plan: Due to the psychiatric conditions and treatment listed in the Assessment and Plan - the patient requires continued hospitalization. Will provide a safe and therapeutic environment for patient.. Will continue inpatient treatment to allow for medication adjustment and monitoring. Will continue q15 min safety checks. The patient presents a 38-year-old man in the throes of heroin addiction and emotional distress over the fact that it is having on his family. The intent at this time is to treat him for opiate withdrawal and assess potential for entry into a rehabilitation program. There is no indication of imminent risk to self or others as evidenced by information in this interview and his past mental health treatment. He will be restarted on previously effective medications and treated for symptoms of opiate withdrawal. Restart Keppra 250 mg twice a day, Suboxone at 4/1 milligram twice a day, clonidine 0.1 mg 3 times a day, and Seroquel 300 mg at bedtime. Hospital day #3:Will continue current medications and monitor for medication si de effects. Suboxone 4/1 twice a day, Seroquel 300 mg at bedtime, Keppra 250 mg twice a day, and clonidine 0.1 mg 3 times a day. HD#4: Pt continues to show signs of hypomania though he denies subjective sense of racing thoughts, impulsivity, hypersexuality. Will await to have infomraiton from collateral sources to make diagnosis. PLAN: increase Seroquel to 600 mg at bedtime and reduce clonidine. HD#5: Patient reports that he is responding well to current medication treatment. He has a great number of questions regarding the rehab program he wants. All of the questions are reasonable but his inability to let things go indicate his degree of perplexity. His mother is also present and we discussed his pattern of moods. She describes him as having elevated episodes and low episodes. But none reached the level of bipolar karla. He does not go days without sleep. He is not impulsive when he is elevated. He does become violent during hsi down phases which would be consistent with clinical depression. On the other hand, she is unable to describe these in absence of his substance use. PLAN: add Celexa 20 mg at bedtime and change clonidine to 0.2 mg at bedtime Mental status examination: Is an overweight versus obese white male with adequate rest, grooming and eye contact. No abnormal movements cooperative with exam in no acute distress. Speech was normal rate and volume. Mood described as better affect congruent. Thought process organized. Thought content: Patient denied any suicidal or homicidal ideations, there were no delusions reportedly noted, he denied any auditory or visual hallucinations. Attention and concentration were intact and memory was mostly reliable but none were formally tested. He is alert and oriented ?3. Insight and judgment are limited but improving. PFS NPU PFSH: Medical History Alcoholism Anxiety Bipolar disorder Chronic back pain Depression GI bleed Hepatitis IBS (irritable bowel syndrome) Intermittent explosive disorder PTSD (post-traumatic stress disorder) Rectal bleed Seizure disorder Substance abuse Suicidal ideation Suicide attempt Surgical History History of back surgery Social History Smoking and tobacco status: smoker, details unknown Current gender identity: Male Inpatient hospitalization is no longer medically necessary or the clinically appropriate intervention at this time. Plan for managing his medication and this acute crisis were worked out with his outpatient provider. He is able to contract for safety and presents no credible lethality. Given his recent presentations malingering has to be a diagnosis noted. Current mental status 06/28/2020: This is an obese white male with adequate grooming and eye contact. In the hospital scrubs. With vital movements. Cooperative with exam in no acute distress. Speech was normal rate and volume. Mood described as fine, affect congruent. Thought process organized. Thought content: Patient denied suicidal or homicidal ideations, there were no delusions reported or noted, he denied any auditory or visual hallucinations. Attention and concentration were intact and memory appeared mostly reliable but none were formally tested. He is alert and oriented x3. Insight and judgment are limited and impulse control is impaired. Assessment/plan: This is a 39-year-old white male with a long history of addiction, depression and anxiety with reports of bereavement and history of malingering who presents on observational status given the way his last hospitalizations have gone he has confirmed the malingering aspect of his presentations in the emergency department as he once again asked to leave AGAINST MEDICAL ADVICE. 1. Continue current medication. 2. Continue every 15 minute checks for safety. 3. Encourage individual, group and milieu therapy while hospitalized. 4. Recommend sober living treatment after discharge at the highest level of care to which he is willing to commit. It is unlikely he will have significant success in his treatment overall until he addresses the significance of addiction in his life. Home Meds/Allergies Home Medications and Allergies Home Medications Medication Instructions Recorded Confirmed Type aspirin 81 mg PO DAILY 11/15/19 06/24/20 History Keppra 500 mg PO BID 06/24/20 06/24/20 History citalopram 20 mg PO DAILY 06/24/20 06/24/20 History metoprolol tartrate 50 mg PO DAILY 06/24/20 06/24/20 History quetiapine [Seroquel] 600 mg PO BEDTIME 06/24/20 06/24/20 History Allergies Allergy/AdvReac Type Severity Reaction Status Date / Time No Known Allergies Allergy Verified 05/18/20 15:50 PFSH Acute PFSH: Medical History (Updated 06/27/20 @ 00:00 by ) Alcoholism Anxiety Bipolar disorder Chronic back pain Depression GI bleed Hepatitis IBS (irritable bowel syndrome) Intermittent explosive disorder PTSD (post-traumatic stress disorder) Rectal bleed Seizure disorder Substance abuse Suicidal ideation Suicide attempt Surgical History History of back surgery Social History Smoking and tobacco status: current every day smoker smokeless tobacco Smokeless tobacco user: snuff Smokeless tobacco details: 1 can/2 weeks Quit status (tobacco): not considering quitting Second hand smoke exposure: No Current gender identity: Male Vitals/I&O/Wt Last Vital Signs Temp 97.4 F L 06/25/20 06:00 Pulse 84 06/25/20 06:00 Resp 19 H 06/25/20 06:00 BP 129/80 06/25/20 09:11 Pulse Ox 99 06/25/20 06:00 Weight last 48 hrs Weight 127.006 kg Hospital Course Admission Diagnoses Malingering, opiate use disorder, anxiety, antisocial personality disorder, and depression. Hospital Course Labs in the emergency department endorsing suicidal ideation with a plan depression and active use. He was admitted to the neuropsychiatric unit for definitive treatment of those issues. Concerns of malingering were expressed immediately upon presentation and patient advised that he needs to get engaged in some treatment modality. He reported that he would work with the treatment team and was hopeful to stay several days to work on sobriety and aftercare. But immediately the next morning he requested to be discharged. He was able to contract for safety and denied all lethality. There were no medication changes made and he had a mild improvement. During the hospitalization, patient had routine laboratory studies which were within normal limits except for few outliers. Additionally he had a general medical evaluation which was also wi thin normal limits and revealed no new acute processes. Discharge Summary At the time of discharge, lethality and psychosis were absent. Mood and anxiety were well managed. Patient endorsed a plan to avoid all drugs of abuse and follow-up with the aftercare recommendations of the treatment team. Patient was evaluated and deemed to be absent credible lethality, and had achieved the maximum benefit from an inpatient hospitalization, so was discharged. Diagnoses at Discharge Discharge Diagnosis (1) Malingering: Status: Acute (2) Opioid use disorder, severe, in early remission, on maintenance therapy, dependence: Status: Acute (3) Antisocial personality disorder: Status: Acute (4) Depression: Status: Acute Qualifiers: Active/Remission status: currently active Depression Type: major depres sive disorder Major depression episode severity: moderate Major depression recurrence: recurrent Qualified Code(s): F33.1 - Major depressive disorder, recurrent, moderate Discharge Plan Discharge Patient Disposition: Left Against Medical Advice Condition: Stable Prescriptions: No Action aspirin 81 mg Tablet,Delayed Release (Dr/Ec) 81 mg PO DAILY RF: 0 alprazolam 1 mg tablet 1 mg PO TID PRN (Reason: anxiety) Qty: 15 RF: 0 clonidine HCl 0.1 mg tablet 0.2 mg PO TID Qty: 20 RF: 0 Seroquel 300 mg tablet 600 mg PO BEDTIME RF: 0 Keppra 500 mg tablet 500 mg PO BID RF: 0 citalopram 20 mg tablet 20 mg PO DAILY RF: 0 metoprolol tartrate 50 mg Tablet 50 mg PO DAILY RF: 0 Discharge Orders: Discharge Order (Routine); Ordered 06/25/20 Ordered By: Lewis Erwin Referrals: [facility] [Outside] - 07/27/20 1:00 pm (You have an appointment with Dr. Joyner July 27 at 1:00PM. ) Discharge Diet: Regular Discharge Activity: Resume usual activity Attestations Medical Necessity Statement*: Inpatient hospitalization is not medically necessary or the clinically appropriate intervention at this time. Patient is absent credible lethality and endorses a desire to leave AGAINST MEDICAL ADVICE. He is a voluntary patient and was allowed to leave. Time Spent in Patient Care*: greater than 30 min Specific Discharge Activities: Specific discharge activities: educating patient, discussing with case operator/social workers/dc planners, documenting/other paperwork and evaluating patient/reviewing data Quality Metrics Clinical Quality Measures: During this hospital stay, did patient experience: None Coding Level of Care Code Acute Trench Trimmer Fine for Rowdyg Fwd Diagnoses Malingering Z76.5 Opioid use disorder, severe, in early remission, on maintenance therapy, dependence F11.21 Antisocial personality disorder F60.2 Depression F33.1 Active/Remission status: currently active Depression Type: major depressive disorder Major depression episode severity: moderate Major depression recurrence: recurrent
[2020-06-25 09:44] VITALS: BP 129/80
--- NOTE | 2020-06-25 14:41 | PC.RESP ---
Smoking Cessation information sent to patient.
== END 2020-06-25 09:56 | disposition left against medical advice (07) | DRG 885 ==
LOC: ER 16:38 → NP 22:30
PROVIDERS: Admitting Provider Psychiatry & Neurology Psychiatry; Emergency Provider Family Medicine; Visit Provider Psychiatry & Neurology Psychiatry
DX: F33.1 Major depressive disorder, recurrent, moderate (principal); R45.851 Suicidal ideations; Z53.29 Procedure and treatment not carried out because of patient's decision for other reasons; F11.21 Opioid dependence, in remission; F60.2 Antisocial personality disorder; F41.9 Anxiety disorder, unspecified; Z76.5 Malingerer [conscious simulation]; F10.10 Alcohol abuse, uncomplicated; G89.29 Other chronic pain; M54.9 Dorsalgia, unspecified; F63.81 Intermittent explosive disorder; F17.220 Nicotine dependence, chewing tobacco, uncomplicated
CPT/HCPCS: 12345; 80053; 80306; 80307; 81003; 84443; 85025; 96372; 99284; J2060

== ENCOUNTER 2020-09-26 20:35 | Emergency (ER) | payer MEDICAID, SELFPAY ==
[2020-09-26 21:10] VITALS: BP 136/99; PULSE 112; RESP 18; TEMP 36.4; O2SAT 96; BMI 33.5
--- NOTE | 2020-09-26 22:02 | ED_ITS ---
HPI - Psych General: Chief Complaint: Psychiatric Symptoms Stated Complaint: WITHDRAWL Time Seen by Provider: 09/26/20 21:40 Source: patient and EMS Mode of arrival: EMS Limitations: no limitations History of Present Illness: HPI Narrative: 40-year-old male states has been feeling extremely anxious. He states he has been on Xanax for 10+ years states he has been out of it for the last 6 days. He states he is feeling extremely anxious from it. He has had no vomiting or withdrawal symptoms. He denies any suicidal homicidal ideations. He states that he has not been able to get into his primary care physician. Review of Systems Const: Denies: fever(s), chills, body aches or change in appetite Eyes: Denies: blurry vision or eye discomfort ENMT: Denies: throat pain or dental pain Card: Denies: chest pain Resp: Denies: dyspnea GI: Denies: abdominal pain, nausea, vomiting or diarrhea : Denies: dysuria Musc: Denies: neck pain or back pain Skin/Breast: Denies: rash Neuro: Denies: headache(s) Psych: Reports: anxiety Willy/Lymph: Denies: easy bruising All/Imm: Denies: urticaria PFSH ED PFSH: Medical History (Updated 09/26/20 @ 21:46 by Mar Black MD) Alcoholism Anxiety Bipolar disorder Chronic back pain Depression GI bleed Hepatitis IBS (irritable bowel syndrome) Intermittent explosive disorder PTSD (post-traumatic stress disorder) Rectal bleed Seizure disorder Substance abuse Suicidal ideation Suicide attempt Surgical History (Reviewed 06/24/20 @ 17:26 by Nilson Sims MD, [facility] [place]) History of back surgery Social History (Reviewed 06/24/20 @ 17:26 by Nilson Sims MD, [facility] [place]) Smoking and tobacco status: current every day smoker smokeless tobacco Smokeless tobacco user: snuff Smokeless tobacco details: 1 can/2 weeks Quit status (tobacco): not considering quitting Second hand smoke exposure: No Current gender identity: Male Physical Exam Const: COMMON NORMALS: no acute distress, patient oriented x3 and healthy appearing HENMT: COMMON NORMALS: normocephalic and atraumatic HEAD & SCALP: normocephalic and atraumatic Eye: COMMON NORMALS: Equal, round and reactive pupils present and EOMs intact bilaterally PUPIL: Yes Equal, round and reactive pupils present Neck/C-Spine: COMMON NORMALS: full ROM and supple Chest: COMMONS NORMALS: normal inspection of the chest and normal palpation of entire chest wall Resp: COMMON NORMALS: normal respiratory effort, No retractions, No use of accessory muscles and clear to auscultation bilaterally AUSCULTATION: clear to auscultation bilaterally Cardio: COMMON NORMALS: regular rate, regular rhythm and No murmurs present (Cardio) RATE: regular rate RHYTHM: regular rhythm GI: COMMON NORMALS: Normal to inspection, nondistended, normoactive bowel sounds present, Soft to palpation, non-tender and no masses PALPATION: Yes Soft to palpation Extremity: COMMON NORMALS: normal to inspection and full ROM Neuro: COMMON NORMALS: patient oriented x3, moves all extremities and no focal motor deficits Psych: COMMON NORMALS: mental status grossly normal, Normal thought process present and cooperative MOOD & AFFECT: Yes anxious THOUGHT PROCESS: Normal thought process present Skin: COMMON NORMALS: no rashes or lesions noted and no wounds GENERAL SKIN EXAM: no rashes or lesions noted MDM - Psych MDM Narrative: Medical decision making narrative: Kyle presents here being out of his Xanax. He was requesting a refill but I did inform him that I am not able to refill the Xanax here and he needs to get his refill from his primary care doctor. I did give him 1 Xanax here and will write him Vistaril. He is to follow-up with his primary care doctor. He has no signs of withdrawal at this time. He is not suicidal or homicidal. Discharge Plan Discharge Patient Disposition: Home Clinical Impression: Acute anxiety Condition: Stable Prescriptions: New Vistaril 50 mg capsule 50 mg PO Q8H PRN (Reason: anxiety) Qty: 20 RF: 0 No Action aspirin 81 mg Tablet,Delayed Release (Dr/Ec) 81 mg PO DAILY RF: 0 alprazolam 1 mg tablet 1 mg PO TID PRN (Reason: anxiety) Qty: 15 RF: 0 clonidine HCl 0.1 mg tablet 0.2 mg PO TID Qty: 20 RF: 0 Seroquel 300 mg tablet 600 mg PO BEDTIME RF: 0 Keppra 500 mg tablet 500 mg PO BID RF: 0 citalopram 20 mg tablet 20 mg PO DAILY RF: 0 metoprolol tartrate 50 mg Tablet 50 mg PO DAILY RF: 0 Discharge Orders: Discharge ED (Routine); Ordered 09/26/20 Ordered By: Mar Black Discharge Diet: Advance as tolerated Discharge Activity: Resume usual activity Patient Instructions: Anxiety (ED) Coding Level of Care Code ED Sole Inker for Edmond Fwd Exam Comprehensive
== END 2020-09-26 22:21 | disposition home or self-care (01) ==
PROVIDERS: Emergency Provider Emergency Medicine
DX: F41.9 Anxiety disorder, unspecified (principal); Z79.82 Long term (current) use of aspirin; F17.220 Nicotine dependence, chewing tobacco, uncomplicated
CPT/HCPCS: 99282

== ENCOUNTER 2020-09-27 00:08 | Observation (INO) | payer MEDICAID, SELFPAY ==
[2020-09-27] VITALS (8 sets, daily range): BP systolic 132–150; BP diastolic 84–110; PULSE 85–125; RESP 17–22; TEMP 36.7–36.8; O2SAT 95–99; BMI 32.3
--- NOTE | 2020-09-27 00:44 | W.ED.PSYCH ---
HPI - Psych General: Chief Complaint: Psychiatric Symptoms Stated Complaint: mhe Time Seen by Provider: 09/27/20 00:09 Source: patient Mode of arrival: ambulatory Limitations: no limitations History of Present Illness: HPI Narrative: 40-year-old male who states he has been having increased depression anxiety. He states he ran out of Xanax a week ago and is unable to get a refill. States awful with anniversary of his dying and states he is now having suicidal thoughts states he has a plan to shoot himself. He is voluntarily want to be admitted. Denies any worsening improving factors. Associated symptoms: Reports depression Review of Systems Const: Denies: fever(s), chills, body aches or change in appetite Eyes: Denies: blurry vision or eye discomfort ENMT: Denies: throat pain or dental pain Card: Denies: chest pain Resp: Denies: dyspnea GI: Denies: abdominal pain, nausea, vomiting or diarrhea : Denies: dysuria Musc: Denies: neck pain or back pain Skin/Breast: Denies: rash Neuro: Denies: headache(s) Psych: Reports: depression Willy/Lymph: Denies: easy bruising All/Imm: Denies: urticaria PFSH ED PFSH: Medical History (Updated 09/27/20 @ 01:22 by Mar Black MD) Alcoholism Anxiety Bipolar disorder Chronic back pain Depression GI bleed Hepatitis IBS (irritable bowel syndrome) Intermittent explosive disorder PTSD (post-traumatic stress disorder) Rectal bleed Seizure disorder Substance abuse Suicidal ideation Suicide attempt Surgical History History of back surgery Social History Smoking and tobacco status: current every day smoker smokeless tobacco Smokeless tobacco user: snuff Smokeless tobacco details: 1 can/2 weeks Quit status (tobacco): not considering quitting Second hand smoke exposure: No Current gender identity: Male Physical Exam Const: COMMON NORMALS: no acute distress, patient oriented x3 and healthy appearing HENMT: COMMON NORMALS: normocephalic and atraumatic HEAD & SCALP: normocephalic and atraumatic Eye: COMMON NORMALS: Equal, round and reactive pupils present and EOMs intact bilaterally PUPIL: Yes Equal, round and reactive pupils present Neck/C-Spine: COMMON NORMALS: full ROM and supple Chest: COMMONS NORMALS: normal inspection of the chest and normal palpation of entire chest wall Resp: COMMON NORMALS: normal respiratory effort, No retractions, No use of accessory muscles and clear to auscultation bilaterally AUSCULTATION: clear to auscultation bilaterally Cardio: COMMON NORMALS: regular rate, regular rhythm and No murmurs present (Cardio) RATE: regular rate RHYTHM: regular rhythm GI: COMMON NORMALS: Normal to inspection, nondistended, normoactive bowel sounds present, Soft to palpation, non-tender and no masses PALPATION: Yes Soft to palpation Extremity: COMMON NORMALS: normal to inspection and full ROM Neuro: COMMON NORMALS: patient oriented x3, moves all extremities and no focal motor deficits Psych: COMMON NORMALS: mental status grossly normal, Normal thought process present and cooperative THOUGHT PROCESS: Normal thought process present THOUGHT CONTENT: Yes Suicidality present Skin: COMMON NORMALS: no rashes or lesions noted and no wounds GENERAL SKIN EXAM: no rashes or lesions noted MDM - Psych MDM Narrative: Medical decision making narrative: Kyle presents here with suicidal ideation. He is well-appearing here and voluntarily wants to be admitted. Patient is medically cleared I spoke to Dr. Castillo and will admit to the psychiatric unit. Lab Data: Labs: Lab Results 09/27/20 09/27/20 09/27/20 Range/Units 00:55 00:55 00:55 WBC 9.0 (4.0-10.0) 10^3/ uL RBC 5.20 (4.1-5.3) 10^6/u L Hgb 15.9 (11.7-16.6) g/dL Hct 47.1 (42.0-52.0) % MCV 90.6 (80-94) fL MCH 30.6 (28.0-34.0) pg MCHC 33.8 (30.0-36.0) g/dL RDW 13.5 (12.1-15.1) % Plt Count 226 (130-400) 10^3/c mm MPV 10.0 (7.4-10.4) fL Neut % (Auto) 54.6 % Lymph % (Auto) 32.8 % [place] % (Auto) 8.1 % Eos % (Auto) 2.6 % Baso % (Auto) 0.8 % Neut # (Auto) 4.90 (1.8-7.7) 10^3/u L Lymph # (Auto) 2.9 (0.8-4.8) 10^3/u L [place] # (Auto) 0.7 (0.2-0.9) 10^3/u L Eos # (Auto) 0.2 (0.0-0.8) 10^3/u L Baso # (Auto) 0.1 (0.0-0.1) 10^3/u L Nucleated RBC % (a uto) 0 % Nucleated RBCs # 0.0 /100WBC Sodium 139 (136-145) mmol/L Potassium 4.1 (3.5-5.1) mmol/L Chloride 104 (98-107) mmol/L Carbon Dioxide 24 (22-29) mmol/L Anion Gap 15.1 (5-19) BUN 11 (6-20) mg/dL Creatinine 0.9 (0.7-1.2) mg/dL GFR Calculation 93.9 (90-130) mL/min Glucose 134 H (65-115) mg/dL Calculated Osmolal ity 289 (285-295) mOsm/k g Calcium 8.4 L (8.5-10.5) mg/dL Total Bilirubin 0.2 (0.15-1.2) mg/dL AST 34 (0-40) U/L ALT 66 H (0-41) U/L Alkaline Phosphata se 98 (40-130) IU/L Total Protein 6.9 (6.6-8.7) g/dL Albumin 4.3 (3.5-5.2) g/dL Globulin 2.6 (1.3-4.6) g/dL Salicylates < 0.3 L (3-10) mg/dL Urine Opiates Scre en Negative (Negative) ng/mL Acetaminophen < 5.0 L (10-30) ug/mL Ur Barbiturates Sc reen Negative (Negative) ng/mL Ur Phencyclidine S crn Negative (Negative) ng/mL Ur Amphetamines Sc reen Negative (Negative) ng/mL U Benzodiazepines Scrn Positive H (Negative) ng/mL Urine Cocaine Scre en Negative (Negative) ng/mL U Marijuana (THC) Screen Negative (Negative) ng/mL Ethyl Alcohol 57 H (0-10) mg/dL Discharge Plan Discharge Patient Disposition: Admitted As Inpatient Clinical Impression: Suicidal ideation Condition: Stable Coding Level of Care Code ED [place] [facility] Technician for Edmond Hwang Exam Comprehensive
[2020-09-27 00:57] LABS: Basophils # 0.1 10^3/uL (0.0-0.1); Basophils % 0.8 %; Eosinophils # 0.2 10^3/uL (0.0-0.8); Eosinophils % 2.6 %; Hematocrit 47.1 % (42.0-52.0); Hemoglobin 15.9 g/dL (11.7-16.6); Lymphocytes # 2.9 10^3/uL (0.8-4.8); Lymphocytes % 32.8 %; Mean Corpuscular HGB Conc 33.8 g/dL (30.0-36.0); Mean Corpuscular Hemoglobin 30.6 pg (28.0-34.0); Mean Corpuscular Volume 90.6 fL (80-94); Monocytes # 0.7 10^3/uL (0.2-0.9); Monocytes % 8.1 %; Neutrophils % 54.6 %; Nucleated Red Blood Cells % 0 %; Platelet Count 226 10^3/cmm (130-400); Red Cell Distribution Width 13.5 % (12.1-15.1)
[2020-09-27 01:14] LABS: Alanine Aminotransferase 66 U/L (0-41); Albumin Level 4.3 g/dL (3.5-5.2); Alcohol Level 57 mg/dL (0-10); Alkaline Phosphatase 98 IU/L (40-130); Anion Gap 15.1 (5-19); Aspartate Amino Transferase 34 U/L (0-40); Blood Urea Nitrogen 11 mg/dL (6-20); Calcium 8.4 mg/dL (8.5-10.5); Carbon Dioxide 24 mmol/L (22-29); Chloride 104 mmol/L (98-107); Creatinine Clr Calc Pharmacy 164.6587; Globulin 2.6 g/dL (1.3-4.6); Glomerular Filtration Rate 93.9 mL/min (90-130); Glucose 134 mg/dL (65-115); Osmolality Calculated 289 mOsm/kg (285-295); Potassium 4.1 mmol/L (3.5-5.1); Sodium 139 mmol/L (136-145); Total Bilirubin 0.2 mg/dL (0.15-1.2); Total Protein 6.9 g/dL (6.6-8.7)
[2020-09-27 01:15] LABS: Acetaminophen < 5.0 ug/mL (10-30); Salicylate < 0.3 mg/dL (3-10)
[2020-09-27 01:21] LABS: Amphetamines Screen Urine Negative (Negative); Barbiturates Screen Urine Negative (Negative); Benzodiazepines Screen Urine Positive (Negative); Cocaine Screen Urine Negative (Negative); Opiate Screen Urine Negative (Negative); PCP Screen Urine Negative (Negative); THC Screen Urine Negative (Negative)
[2020-09-27] MEDS: OLANZapine 5 mg ODT PO (03:45)
[2020-09-27] MEDS: hyDROXYzine 25 mg Capsule 50 MG PO ×2 (03:46→13:17)
--- NOTE | 2020-09-27 03:50 | PC.NURSE ---
PT GIVEN VISTARIL 50MG AND ZYPREXA 5MG FOR INCREASED ANXIETY. PT EDUCATED THAT TO GIVE HIS SEROQUEL THIS LATE MIGHT CAUSE HIM TO SLEEP MOST OF THE DAY AND THAT THE DOCTOR NEEDS TO BE ABLE TO EVALUATE HIM. PT VOICED UNDERSTANDING. PT SAT AT THE [facility]EN[facility] BY NURSES DESK FOR ABOUT 10-15 MINUTES VOICING CONCERNS ABOUT BOTH SEROQUEL AND SUBOXONE.
--- NOTE | 2020-09-27 05:04 | PC.NURSE ---
pT IS IN ROOM SNORING AT THIS TIME.
[2020-09-27] MEDS: metoprolol tartrate 50 mg Tablet PO (07:40)
[2020-09-27] MEDS: aspirin 81 mg EC Tablet PO (07:41)
[2020-09-27] MEDS: citalopram 20 mg Tablet PO (07:41)
[2020-09-27] MEDS: cloNIDine 0.1 mg Tablet 0.2 MG PO ×2 (07:41→13:07)
[2020-09-27] MEDS: levETIRAcetam 500 mg Tablet PO (07:42)
[2020-09-27] MEDS: acetaminophen 325 mg Tablet 650 MG PO (13:08)
--- NOTE | 2020-09-27 14:04 | PC.RESP ---
Smoking Cessation information sent to patient.
--- NOTE | 2020-09-27 15:33 | PM.SDS ---
Short Stay Summary Providers Date of Admit/Discharge: 09/27/20 Attending Provider: Tiffany Castillo DO Chief Complaint: mhe HPI History of Present Illness Kyle Cartwright is a 40 year old male with a history of malingering, antisocial personality, opioid dependence, alcohol dependence, benzodiazepine dependence presented to the emergency department last evening stating that he was having worsening anxiety and depression in the context of the anniversary of his 's and reports that he was having suicidal ideation and that he was thinking about shooting himself in the head. At the time of his initial admission to the inpatient unit, patient immediately started asking for Xanax and Suboxone and was upset when these things would not be immediately provided. Patient mostly stayed to himself but was pacing the unit on occasion but subsequently took a nap in the day room and subsequently in his room. At the time of evaluation he no longer endorses any depressive symptoms reporting that he had only told the ER physician that he was suicidal in order to gain admission to the inpatient psychiatry unit. He denied any anxiety or depressive symptoms and states that he had not been experiencing any suicidal ideation recently or currently and had no intent of harming himself. Patient states that his only goal at this point was leaving the hospital today. Patient reports that he had not been compliant with his medication management or medication management follow-up and last seen his physician that provided Suboxone in May 2020 although he has had a subsequent presentation in the emergency department once again requesting Suboxone and Xanax with the same complaint of having worsening anxiety and depressive symptoms in the context of the anniversary of his 's . Review of Systems General: Reports: 10 or more systems reviewed and unremarkable except in HPI and below Home Meds/Allergies Home Medications and Allergies Home Medications Medication Instructions Recorded Confirmed Type aspirin 81 mg PO DAILY 11/15/19 09/27/20 History citalopram 20 mg PO DAILY 06/24/20 09/27/20 History levetiracetam [Keppra] 500 mg PO BID 06/24/20 09/27/20 History metoprolol tartrate 50 mg PO DAILY 06/24/20 09/27/20 History quetiapine [Seroquel] 600 mg PO BEDTIME 06/24/20 09/27/20 History buprenorphine-naloxone [Suboxone] 1 film SUBLINGUAL BEDTIME 09/27/20 09/27/20 History Allergies Allergy/AdvReac Type Severity Reaction Status Date / Time No Known Allergies Allergy Verified 05/18/20 15:50 PFSH Acute PFSH: Medical History Alcoholism Anxiety Bipolar disorder Chronic back pain Depression GI bleed Hepatitis IBS (irritable bowel syndrome) Intermittent explosive disorder PTSD (post-traumatic stress disorder) Rectal bleed Seizure disorder Substance abuse Suicidal ideation Suicide attempt Surgical History History of back surgery Social History Smoking and tobacco status: current every day smoker smokeless tobacco Smokeless tobacco user: snuff Smokeless tobacco details: 1 can/2 weeks Quit status (tobacco): not considering quitting Second hand smoke exposure: No Current gender identity: Male Vitals/I&O/Wt Last Vital Signs Temp 98.1 F 09/27/20 13:12 Pulse 85 09/27/20 13:12 Resp 17 09/27/20 13:12 BP 136/88 09/27/20 13:12 Pulse Ox 96 09/27/20 13:12 Weight last 48 hrs Weight 127.006 kg Physical Exam Narrative: EXAM NARRATIVE: MSE: Appears stated age, unshaven, unkempt, obese, lying in his bed comfortably, calm, cooperative, interactive, good eye contact Psychomotor activity is neither increased or decreased, no agitation Speech is normal rate and volume, spontaneous, clear reticulation, not pressured I feel fine, full range of affect, not labile Alert and oriented to person, place, time, situation Memory and concentration appear to be intact per interview Intellectual functioning appears to be average at best per vocabulary, interview Thought process, linear, no flight of ideas, no looseness of associations Thought content, no delusions, no hallucinations, no suicidal or homicidal ideation Insight and judgment appear to be fair to intact Hospital Course Hospital Course Per above, patient presented to the ER stating that he was suicidal but states that he was not suicidal and was merely trying to gain admission to the inpatient psychiatry unit in hopes of being treated with Xanax and Suboxone. He also reports that he was trying to get out of the elements. Patient denied any active psychiatric symptoms and denied any suicidal ideation or thoughts about self-harm. Patient acknowledged that he had not been compliant with his follow-up with his outpatient provider that have been providing him Suboxone and reports that he had not been compliant with his medication management. Low to moderate risk of harm to self or others given no current suicidal ideation and no active psychiatric symptoms although patient's risk may continue to be elevated if he continues to be noncompliant with his medication medication management follow-up as well as abuse substances and alcohol leading to unexpected, impulsive behaviors putting himself and others at risk. Risk mitigation included psychiatric hospitalization for observation for any suicidal ideation or behaviors, recommendation to abstain from the use of substances and alcohol as well as coordination for post discharge substance counseling/treatment. Patient was able to communicate his understanding of the need to abstain from use of substances and alcohol as well as the need for compliance with post discharge substance counseling/treatment in order to further mitigate his risk of harm to self and others. Diagnoses at Discharge Discharge Diagnosis (1) Malingering: Status: Acute (2) Opioid use disorder, severe, in early remission, on maintenance therapy, dependence: Status: Acute (3) Antisocial personality disorder: Status: Acute Discharge Plan Discharge Patient Disposition: Home Condition: Stable Prescriptions: Continued aspirin 81 mg Tablet,Delayed Release (Dr/Ec) 81 mg PO DAILY RF: 0 clonidine HCl 0.1 mg tablet 0.2 mg PO TID Qty: 20 RF: 0 hydroxyzine pamoate [Vistaril] 50 mg capsule 50 mg PO Q8H PRN (Reason: anxiety) Qty: 20 RF: 0 quetiapine [Seroquel] 300 mg tablet 600 mg PO BEDTIME RF: 0 levetiracetam [Keppra] 500 mg tablet 500 mg PO BID RF: 0 citalopram 20 mg tablet 20 mg PO DAILY RF: 0 metoprolol tartrate 50 mg Tablet 50 mg PO DAILY RF: 0 Discontinued alprazolam 1 mg tablet 1 mg PO TID PRN (Reason: anxiety) Qty: 15 RF: 0 buprenorphine-naloxone [Suboxone] 4-1 mg Film 1 film SUBLINGUAL BEDTIME RF: 0 Discharge Orders: Discharge Order (Routine); Ordered 09/27/20 Ordered By: Tiffany Castillo Referrals: Marlys Boss FNP [Nurse Practitioner] - 09/29/20 10:45 am (You have an appointment with Alix Boss for New patient establishment. on Sunday at 10:45 AM) Marcos Joyner MD [Physician] - 10/01/20 9:45 am (Hospital follow up with Dr. Joyner, done in office. *IF YOU MISS THIS APPOINTMENT YOU WILL BE PLACED ON THE WALK IN LIST AND NO LONGER ABLE TO SCHEDULE ANY APPOINTMENTS!!) Discharge Diet: Regular Discharge Activity: Resume usual activity Attestations Medical Necessity Statement*: Patient was observed overnight after lying about being suicidal with depression anxiety currently denying any suicidality and denying any active psychiatric symptoms. Outpatient medication management, substance counseling/treatment is the least restrictive level of care at this time. 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
== END 2020-09-27 16:49 | disposition home or self-care (01) ==
LOC: ER 01:22 → NP 11:59
PROVIDERS: Admitting Provider Psychiatry & Neurology Psychiatry; Emergency Provider Emergency Medicine; Visit Provider Psychiatry & Neurology Psychiatry
DX: F60.2 Antisocial personality disorder (principal); F11.21 Opioid dependence, in remission; Z76.5 Malingerer [conscious simulation]; Z91.14 Patient's other noncompliance with medication regimen; F17.220 Nicotine dependence, chewing tobacco, uncomplicated
CPT/HCPCS: 80053; 80306; 80307; 85025; 99285; G0378

== ENCOUNTER 2020-10-30 12:19 | Emergency (ER) | payer MEDICAID, SELFPAY ==
[2020-10-30 12:28] VITALS: BP 174/114; PULSE 125; RESP 18; TEMP 36.9; O2SAT 98; BMI 32.3
--- NOTE | 2020-10-30 12:59 | W.ED.PSYCH ---
HPI - Psych General: Chief Complaint: Psychiatric Symptoms Stated Complaint: SI Time Seen by Provider: 10/30/20 12:29 Source: patient Mode of arrival: ambulatory Limitations: no limitations History of Present Illness: HPI Narrative: Patient is a 40-year-old male with an extensive psychiatric history who presents to the emergency department with suicidal and homicidal ideation. He states that he ran out of his psychiatric medications about 2 weeks ago and he has had worsening psychiatric symptoms since then. He has thought about shooting himself but states he does not have access to a gun. He however was convinced he can come up with a plan. MD complaint: suicidal ideation and feels depressed Onset (ago): day(s) Duration: constant History of same: Yes Relieving factors: none Exacerbating factors: none Context: not taking psychiatric medications Associated psychiatric symptoms: depression, suicidal ideation and homicidal ideation Associated symptoms: Reports homicidal ideation and suicidal ideation Treatments prior to arrival: none If self harm: admits thoughts of self harm Review of Systems General: Reports: 10 or more systems reviewed and unremarkable except in HPI and below Psych: Reports: suicidal ideation and homicidal ideation [facility] PFSH: Medical History (Updated 10/30/20 @ 17:30 [place] Nilson [place] [facility] [place]ism Anxiety Bipolar disorder Chronic back pain Depression GI bleed Hepatitis IBS (irritable bowel syndrome) Intermittent explosive disorder PTSD (post-traumatic stress disorder) Rectal bleed Seizure disorder Substance abuse Suicidal ideation Suicide attempt Surgical History (Reviewed 10/30/20 @ 13:26 by Nilson Sims MD, [facility] [place] History of back surgery Social History (Reviewed 10/30/20 @ 13:26 by Nilson Sims MD, [facility] [place] Smoking and tobacco status: current every day smoker smokeless tobacco Smokeless tobacco user: snuff Smokeless tobacco details: 1 can/2 weeks Quit status (tobacco): not considering quitting Second hand smoke exposure: No Current gender identity: Male Physical Exam Const: COMMON NORMALS: no acute distress, average body habitus, patient oriented x3, no limitations, healthy appearing, alert and well nourished HENMT: COMMON NORMALS: normocephalic, atraumatic and moist oral mucous membranes HEAD & SCALP: normocephalic and atraumatic Neck/C-Spine: COMMON NORMALS: no meningeal signs and no JVD Resp: COMMON NORMALS: normal respiratory effort, No retractions, No use of accessory muscles, clear to auscultation bilaterally and percussion normal AUSCULTATION: clear to auscultation bilaterally PERCUSSION: percussion normal Cardio: COMMON NORMALS: no JVD, regular rate, regular rhythm, S1 normal heart sound present, S2 normal heart sound present, No gallops present (Cardio), No clicks present (Cardio), No murmurs present (Cardio), No rub (Cardio) and Peripheral pulses 2+ throughout RATE: regular rate RHYTHM: regular rhythm HEART SOUNDS: S1 normal heart sound present and S2 normal heart sound present PERIPHERAL PULSES: Peripheral pulses 2+ throughout GI: COMMON NORMALS: Normal to inspection, nondistended, normoactive bowel sounds present, Soft to palpation, non-tender, No hepatosplenomegaly present, no masses and no bruits PALPATION: Yes Soft to palpation and Yes No hepatosplenomegaly present Extremity: COMMON NORMALS: normal to inspection, full ROM, capillary refill normal, no calf tenderness and no pedal edema Neuro: COMMON NORMALS: patient oriented x3 SENSORIUM/ORIENTATION: Yes alert MENINGEAL SIGNS: Yes no meningeal signs Skin: COMMON NORMALS: no rashes or lesions noted, no wounds, turgor normal, no jaundice, no petechiae and no mottling GENERAL SKIN EXAM: no rashes or lesions noted and turgor normal Course Reevaluation(s): Reevaluation #1: Discussed his lab findings with him. Also discussed my conversation with Dr. Erwin, and that it was safe for him to be discharged home. He voiced understanding and all questions answered. Time: 17:07 Consultations: Consultation #1: Discussed the patient with Dr. Erwin, psychiatrist, who evaluated the patient and determined that he was safe to be discharged home. He did not believe that the patient was at iminent risk of suicide. He has had multiple hospital admissions with similar concerns and every time asked to be discharged home the next day. He therefore advised that we refer to [facility] and discharge him home. Time: 16:24 Vital Signs: Vital signs: Vital Signs Temperature 98.5 F 10/30/20 17:47 Pulse Rate 125 H 10/30/20 12:28 Respiratory Rate 18 10/30/20 17:47 Blood Pressure 174/114 10/30/20 12:28 Pulse Oximetry 98 10/30/20 17:47 MDM - Psych MDM Narrative: Medical decision making narrative: 40 year old male who presented to the ED with SI. He has had several ED visits with similar complaints. He was evaluated by the psychiatrist and deemed not a risk of suicide at this time. He is discharged home with a referral to [facility]. Medical Records: Attestation: I reviewed the patient's medical records. Lab Data: Attestation: I reviewed the patient's lab results. Labs: Lab Results 10/30/20 10/30/20 10/30/20 Range/Units 12:50 12:50 12:55 WBC 6.8 (4.0-10.0) 10^3/ uL RBC 5.15 (4.1-5.3) 10^6/u L Hgb 15.9 (11.7-16.6) g/dL Hct 47.2 (42.0-52.0) % MCV 91.7 (80-94) fL MCH 30.9 (28.0-34.0) pg MCHC 33.7 (30.0-36.0) g/dL RDW 13.3 (12.1-15.1) % Plt Count 250 (130-400) 10^3/c mm MPV 11.0 H (7.4-10.4) fL Neut % (Auto) 62.8 % Lymph % (Auto) 26.0 % Mitchell % (Auto) 8.4 % Eos % (Auto) 0.4 % Baso % (Auto) 1.5 % Neut # (Auto) 4.25 (1.8-7.7) 10^3/u L Lymph # (Auto) 1.8 (0.8-4.8) 10^3/u L Mitchell # (Auto) 0.6 (0.2-0.9) 10^3/u L Eos # (Auto) 0.0 (0.0-0.8) 10^3/u L Baso # (Auto) 0.1 (0.0-0.1) 10^3/u L Nucleated RBC % (a uto) 0 % Nucleated RBCs # 0.0 /100WBC Sodium 137 (136-145) mmol/L Potassium 3.9 (3.5-5.1) mmol/L Chloride 102 (98-107) mmol/L Carbon Dioxide 21 L (22-29) mmol/L Anion Gap 17.9 (5-19) BUN 13 (6-20) mg/dL Creatinine 1.1 (0.7-1.2) mg/dL GFR Calculation 74.5 L (90-130) mL/min Glucose 97 (65-115) mg/dL Calculated Osmolal ity 284 L (285-295) mOsm/k g Calcium 8.8 (8.5-10.5) mg/dL Total Bilirubin 0.2 (0.15-1.2) mg/dL AST 19 (0-40) U/L ALT 31 (0-41) U/L Alkaline Phosphata se 101 (40-130) IU/L Total Protein 7.5 (6.6-8.7) g/dL Albumin 4.7 (3.5-5.2) g/dL Globulin 2.8 (1.3-4.6) g/dL Urine Color Yellow (Yellow) Urine Appearance Clear (CLEAR) Urine pH 5 (5-7) Ur Specific Gravit y 1.020 (1.005-1.030) Urine Protein Neg (Negative) Urine Glucose (UA) Norm (Normal) Urine Ketones Negative (Negative) Urine Blood Neg (Negative) Urine Nitrate Negative (Negative) Urine Bilirubin Neg (Negative) Urine Urobilinogen Norm (Negative) mg/dL Ur Leukocyte La ase Negative (Negative) Salicylates < 0.3 L (3-10) mg/dL Urine Opiates Scre en (Negative) ng/mL Acetaminophen < 5.0 L (10-30) ug/mL Ur Barbiturates Sc reen (Negative) ng/mL Ur Phencyclidine S crn (Negative) ng/mL Ur Amphetamines Sc reen (Negative) ng/mL U Benzodiazepines Scrn (Negative) ng/mL Urine Cocaine Scre en (Negative) ng/mL U Marijuana (THC) Screen (Negative) ng/mL 10/30/20 Range/Units 12:55 WBC (4.0-10.0) 10^3/ uL RBC (4.1-5.3) 10^6/u L Hgb (11.7-16.6) g/dL Hct (42.0-52.0) % MCV (80-94) fL MCH (28.0-34.0) pg MCHC (30.0-36.0) g/dL RDW (12.1-15.1) % Plt Count (130-400) 10^3/c mm MPV (7.4-10.4) fL Neut % (Auto) % Lymph % (Auto) % Mitchell % (Auto) % Eos % (Auto) % Baso % (Auto) % Neut # (Auto) (1.8-7.7) 10^3/u L Lymph # (Auto) (0.8-4.8) 10^3/u L Mitchell # (Auto) (0.2-0.9) 10^3/u L Eos # (Auto) (0.0-0.8) 10^3/u L Baso # (Auto) (0.0-0.1) 10^3/u L Nucleated RBC % (a uto) % Nucleated RBCs # /100WBC Sodium (136-145) mmol/L Potassium (3.5-5.1) mmol/L Chloride (98-107) mmol/L Carbon Dioxide (22-29) mmol/L Anion Gap (5-19) BUN (6-20) mg/dL Creatinine (0.7-1.2) mg/dL GFR Calculation (90-130) mL/min Glucose (65-115) mg/dL Calculated Osmolal ity (285-295) mOsm/k g Calcium (8.5-10.5) mg/dL Total Bilirubin (0.15-1.2) mg/dL AST (0-40) U/L ALT (0-41) U/L Alkaline Phosphata se (40-130) IU/L Total Protein (6.6-8.7) g/dL Albumin (3.5-5.2) g/dL Globulin (1.3-4.6) g/dL Urine Color (Yellow) Urine Appearance (CLEAR) Urine pH (5-7) Ur Specific Gravit y (1.005-1.030) Urine Protein (Negative) Urine Glucose (UA) (Normal) Urine Ketones (Negative) Urine Blood (Negative) Urine Nitrate (Negative) Urine Bilirubin (Negative) Urine Urobilinogen (Negative) mg/dL Ur Leukocyte La ase (Negative) Salicylates (3-10) mg/dL Urine Opiates Scre en Negative (Negative) ng/mL Acetaminophen (10-30) ug/mL Ur Barbiturates Sc reen Negative (Negative) ng/mL Ur Phencyclidine S crn Negative (Negative) ng/mL Ur Amphetamines Sc reen Negative (Negative) ng/mL U Benzodiazepines Scrn Positive H (Negative) ng/mL Urine Cocaine Scre en Negative (Negative) ng/mL U Marijuana (THC) Screen Negative (Negative) ng/mL Discharge Plan Discharge Patient Disposition: Home Clinical Impression: Depression Qualifiers: Depression Type: major depressive disorder Major depression recurrence: recurrent Active/Remission status: currently active Major depression episode severity: unspecified Qualified Code(s): F33.9 - Major depressive disorder, recurrent, unspecified Condition: Stable Prescriptions: Continued hydroxyzine pamoate [Vistaril] 50 mg capsule 50 mg PO Q8H PRN (Reason: anxiety) Qty: 20 RF: 0 lisinopril 20 mg tablet 20 mg PO DAILY RF: 0 Suboxone 4-1 mg film 1 film sublingual DAILY RF: 0 clonidine HCl 0.1 mg tablet 0.1 mg PO TID RF: 0 quetiapine [Seroquel] 300 mg tablet 600 mg PO BEDTIME RF: 0 levetiracetam [Keppra] 500 mg tablet 500 mg PO BID RF: 0 Discharge Orders: Discharge ED (Routine); Ordered 10/30/20 Ordered By: Nilson Sims Discharge Diet: Usual diet Discharge Activity: Increase activity as tolerated Patient Instructions: Depression (ED), Suicide Prevention for Adults (ED) Activity Restrictions/Additional Instructions: Return for any new or worsening symptoms. You will be contacted by case management to schedule an appointment to be seen at [facility]. Follow up with your pain specialist as soon as possible. 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
[2020-10-30 13:18] LABS: Add Urine Microscopic? NO; Charge for UA Resulting for Rev
[2020-10-30 13:21] LABS: Basophils # 0.1 10^3/uL (0.0-0.1); Basophils % 1.5 %; Eosinophils % 0.4 %; Hematocrit 47.2 % (42.0-52.0); Hemoglobin 15.9 g/dL (11.7-16.6); Lymphocytes # 1.8 10^3/uL (0.8-4.8); Mean Corpuscular HGB Conc 33.7 g/dL (30.0-36.0); Mean Corpuscular Hemoglobin 30.9 pg (28.0-34.0); Mean Corpuscular Volume 91.7 fL (80-94); Monocytes # 0.6 10^3/uL (0.2-0.9); Monocytes % 8.4 %; Neutrophils # 4.25 10^3/uL (1.8-7.7); Neutrophils % 62.8 %; Nucleated Red Blood Cells % 0 %; Platelet Count 250 10^3/cmm (130-400); Red Blood Count 5.15 10^6/uL (4.1-5.3); Red Cell Distribution Width 13.3 % (12.1-15.1); White Blood Count 6.8 10^3/uL (4.0-10.0)
[2020-10-30 13:23] LABS: Bilirubin Urine Neg (Negative); Blood Urine Neg (Negative); Glucose Urine UA Norm (Normal); Ketones Urine Negative (Negative); Leukocyte Esterase Urine Negative (Negative); Nitrate Urine Negative (Negative); Protein Urine Neg (Negative); Urine Appearance Clear (CLEAR); Urine Color Yellow (Yellow); Urobilinogen Urine Norm (Negative); pH Urine 5 (5-7)
[2020-10-30 13:26] LABS: Alanine Aminotransferase 31 U/L (0-41); Albumin Level 4.7 g/dL (3.5-5.2); Alkaline Phosphatase 101 IU/L (40-130); Anion Gap 17.9 (5-19); Aspartate Amino Transferase 19 U/L (0-40); Blood Urea Nitrogen 13 mg/dL (6-20); Calcium 8.8 mg/dL (8.5-10.5); Carbon Dioxide 21 mmol/L (22-29); Chloride 102 mmol/L (98-107); Creatinine Clr Calc Pharmacy 134.7207; Globulin 2.8 g/dL (1.3-4.6); Glomerular Filtration Rate 74.5 mL/min (90-130); Glucose 97 mg/dL (65-115); Osmolality Calculated 284 mOsm/kg (285-295); Potassium 3.9 mmol/L (3.5-5.1); Sodium 137 mmol/L (136-145); Total Bilirubin 0.2 mg/dL (0.15-1.2); Total Protein 7.5 g/dL (6.6-8.7)
[2020-10-30 13:28] LABS: Acetaminophen < 5.0 ug/mL (10-30); Salicylate < 0.3 mg/dL (3-10)
[2020-10-30 13:29] LABS: Amphetamines Screen Urine Negative (Negative); Barbiturates Screen Urine Negative (Negative); Benzodiazepines Screen Urine Positive (Negative); Cocaine Screen Urine Negative (Negative); Opiate Screen Urine Negative (Negative); PCP Screen Urine Negative (Negative); THC Screen Urine Negative (Negative)
--- NOTE | 2020-10-30 15:56 | PC.PHAR ---
PT WONT VERIFY HIS MEDICATIONS-PT JUST LOOKS AND SAYS UMM UMM-MEDICATIONS ENTERED ARE MEDS THAT SHOW UP RECENTLY FILLED ON EXT MED HISTORY-NOTES ARE MADE ON EACH RX IN PHARMACY COMMENTS
--- NOTE | 2020-10-30 17:09 | P.CONIM_ITS ---
Providers/Reason for Consult Consulting Physican/Specialty*: Lewis Erwin MD. Psychiatry. Reason for Consult*: Evaluation for inpatient stay and or safely discharge. Requesting Physcian: Mar Black Psych Consult HPI History of Present Illness Kyle Cartwright is a 40 year old male who presented to the ED with the following report: Chief Complaint: Psychiatric Symptoms Stated Complaint: SI Time Seen by Provider: 10/30/20 12:29 Source: patient Mode of arrival: ambulatory Limitations: no limitations History of Present Illness: HPI Narrative: Patient is a 40-year-old male with an extensive psychiatric history who presents to the emergency department with suicidal and homicidal ideation. He states that he ran out of his psy chiatric medications about 2 weeks ago and he has had worsening psychiatric symptoms since then. He has thought about shooting himself but states he does not have access to a gun. He however was convinced he can come up with a plan. complaint: suicidal ideation and feels depressed Onset (ago): day(s) Duration: constant History of same: Yes Relieving factors: none Exacerbating factors: none Context: not taking psychiatric medications Associated psychiatric symptoms: depression, suicidal ideation and homicidal ideation Associated symptoms: Reports homicidal ideation and suicidal ideation Treatments prior to arrival: none If self harm: admits thoughts of self harm. A psychiatric evaluation was requested given his frequent presentations to the emergency room with reports of depression and suicidality but known history of drug-seeking and malingering. A review of his last hospitalizations demonstrates essentially all short stay summary is where he presented, try to obtain or maybe obtain the dose of central substance and then immediately elected to leave AMA never staying more than 24 hours. The last episode of this was 09/27/2020 and an excerpt of that included below for context. He denies any substantive changes in his circumstance we have [id number] about how we can not support or be a part of this addicted behavior. We have tried very hard to meet him where he is but it would not be giving out any controlled substances would not be acting as a bridge to possible next appointments for his Suboxone which currently at this point do not seem to exist at all. 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 We continue to support the idea of sober living treatment especially inpatient for him but discussed that we cannot enable his addicted or malingering behavior. Per his 09/27/2020 inpatient evaluation: History of Present Illness Kyle Cartwright is a 40 year old male with a history of malingering, antisocial personality, opioid dependence, alcohol dependence, benzodiazepine dependence presented to the emergency department last evening stating that he was having worsening anxiety and depression in the context of the anniversary of his 's and reports that he was having suicidal ideation and that he was thinking about shooting himself in the head. At the time of his initial admission to the inpatient unit, patient immediately started asking for Xanax and Suboxone and was upset when these things would not be immediately provided. Patient mostly stayed to himself but was pacing the unit on occasion but subsequently took a nap in the day room and subsequently in his room. At the time of evaluation he no longer endorses any depressive symptoms reporting that he had only told the ER physician that he was suicidal in order to gain admission to the inpatient psychiatry unit. He denied any anxiety or depressive symptoms and states that he had not been experiencing any suicidal ideation recently or currently and had no intent of harming himself. Patient states that his only goal at this point was leaving the hospital today. Patient reports that he had not been compliant with his medication management or medication management follow-up and last seen his physician that provided Suboxone in May 2020 although he has had a subsequent presentation in the emergency department once again requesting Suboxone and Xanax with the same complaint of having worsening anxiety and depressive symptoms in the context of the anniversary of his 's . PFS NPU PFSH: Medical History (Updated 10/30/20 @ 17:30 [place] Sims [place] [facility] Alcoholism Anxiety Bipolar disorder Chronic back pain Depression GI bleed Hepatitis IBS (irritable bowel syndrome) Intermittent explosive disorder PTSD (post-traumatic stress disorder) Rectal bleed Seizure disorder Substance abuse Suicidal ideation Suicide attempt Surgical History (Reviewed 10/30/20 @ 13:26 by Nilson Sims [place], [facility] [place] History of back surgery Social History (Reviewed 10/30/20 @ 13:26 by Nilson Sims [place], [facility] [place] Smoking and tobacco status: current every day smoker smokeless tobacco Smokeless tobacco user: snuff Smokeless tobacco details: 1 can/2 weeks Quit status (tobacco): not considering quitting Second hand smoke exposure: No Current gender identity: Male Mental Status Exam MSE Comments: This is an overweight versus obese white female with adequate dress, grooming and eye contact. No abnormal movements except for mild psychomotor retardation. Cooperative with exam in no acute distress. Speech was decreased rate and volume. Mood described as depressed, affect congruent. Thought process organized. Thought content: Patient denied any homicidal ideation, there were no delusions reported or noted, he denies any auditory or visual hallucinations. Attention and concentration were intact and memory was unreliable but none were formally tested. He is alert and oriented ?3. Insight and judgment are limited and impulse control is impaired. Vitals/I&O/Wt Last Vital Signs Temp 98.5 F 10/30/20 17:47 Pulse 125 H 10/30/20 12:28 Resp 18 10/30/20 17:47 BP 174/114 10/30/20 12:28 Pulse Ox 98 10/30/20 17:47 A&P Additional A&P Information (1) Malingering: (2) Opioid use disorder, severe, in early remission, on maintenance therapy, dependence: (3) Antisocial personality disorder: (4) Depression: Additional A&P Information Kyle presented to the emergency department reporting suicidality, depression and inability to contract for safety but is known through his antisocial personality disorder, malingering and opiate use disorder which often drives his presentations, and he acknowledges today that he is here as he is run out of his Suboxone early again. However we cannot confirm that he was even getting it because there is a note from Dr. Joyner suggesting that that relationship c ontinues. 1. Continue current medication. 2. Patient not being honest about his current situation as he reports that he was seeing Dr. Joyner still for Suboxone and there is no evidence for this. 3. Patient is absent credible lethality and clearly interested in possibly getting access to Suboxone. 4. He was advised to follow-up with outpatient services and that we would not be giving him additional medication to manage when he runs out. Involuntary Hold Information 96 Hour Hold: 96 Hour Involuntary Admission: No Attestations NPU Medical Necessity Statement*: N/A. Please see primary team note for medical necessity. Coding Level of Care Code Acute Principal Technical Specialist for Edmond Hwang
[2020-10-30 17:47] VITALS: RESP 18; TEMP 36.9; O2SAT 98
--- NOTE | 2020-11-01 15:50 | DCPLANNER ---
branch operations manager had message to speak with patient about services at [facility]. branch operations manager called [phone], unable to speak with patient at this time, a voicemail was left for patient to return supportive employment case manager phone call.
== END 2020-10-30 17:48 | disposition home or self-care (01) ==
PROVIDERS: Emergency Provider Family Medicine
DX: F33.9 Major depressive disorder, recurrent, unspecified (principal); F17.220 Nicotine dependence, chewing tobacco, uncomplicated
CPT/HCPCS: 36415; 80053; 80306; 80307; 81003; 85025; 99283

== ENCOUNTER 2020-12-17 21:02 | Emergency (ER) | payer MEDICAID, SELFPAY ==
[2020-12-17 21:07] VITALS: BP 115/78; PULSE 124; RESP 22; TEMP 36.8; O2SAT 92; BMI 31.8
--- NOTE | 2020-12-17 21:10 | XRR_ITS ---
PROCEDURE INFORMATION: Exam: XR Chest Exam date and time: 12/17/2020 9:10 PM Age: 40 years old Clinical indication: Sternal or substernal pain; Additional info: Cp/ cough, SOB TECHNIQUE: Imaging protocol: XR of the chest. Views: 1 view. Total images: 1 COMPARISON: CR XR chest 1V portable [id number] 11/15/2019 4:49 PM FINDINGS: Lungs: No visible active interstitial or alveolar airspace disease. Pleural spaces: Unremarkable. No pleural effusion. No pneumothorax. Heart/Mediastinum: Unremarkable. No cardiomegaly. Bones/joints: Unremarkable. XR/XR chest 1V portable [id number] IMPRESSION: Nonacute.
--- NOTE | 2020-12-17 21:10 | ECG_ITS ---
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 Measurements Intervals [place] Rate: 116 P: 36 [place]: 146 QRS: 49 QRSD: 94 T: 45 QT: 315 QTc: 439 Interpretive Statements SINUS TACHYCARDIA ABNORMAL RHYTHM ECG Compared to ECG 02/26/2020 12:58:06 No significant changes Electronically Signed On 12-18-2020 22:57:39 CDT by Aretha Xiong M.D. [id number]
[2020-12-17 21:19] LABS: Basophils % 0.5 %; Eosinophils # 0.3 10^3/uL (0.0-0.8); Eosinophils % 3.6 %; Hematocrit 38.1 % (42.0-52.0); Hemoglobin 12.3 g/dL (11.7-16.6); Lymphocytes # 2.1 10^3/uL (0.8-4.8); Lymphocytes % 27.8 %; Mean Corpuscular HGB Conc 32.3 g/dL (30.0-36.0); Mean Corpuscular Hemoglobin 30.8 pg (28.0-34.0); Mean Corpuscular Volume 95.3 fL (80-94); Mean Platelet Volume 11.1 fL (7.4-10.4); Neutrophils # 4.07 10^3/uL (1.8-7.7); Neutrophils % 54.8 %; Nucleated Red Blood Cells % 0 %; Platelet Count 161 10^3/cmm (130-400); Red Cell Distribution Width 13.4 % (12.1-15.1); White Blood Count 7.4 10^3/uL (4.0-10.0)
[2020-12-17] MEDS: sodium chloride 0.9% 1,000 ML 999 ML IV (21:20)
[2020-12-17 21:32] VITALS: RESP 18
[2020-12-17] MEDS: morphine 4 mg/mL SDV 1 mL 2 MG IVP (21:32)
[2020-12-17] MEDS: ipratropium-albuterol 3 mL Neb INHALATION (21:37)
[2020-12-17 21:40] VITALS: PULSE 114; RESP 18; O2SAT 91
[2020-12-17 21:41] LABS: Troponin(5th) Baseline 13 ng/L (0-15)
[2020-12-17 21:42] LABS: Alanine Aminotransferase 163 U/L (0-41); Alkaline Phosphatase 89 IU/L (40-130); Anion Gap 14.9 (5-19); Aspartate Amino Transferase 477 U/L (0-40); Blood Urea Nitrogen 15 mg/dL (6-20); Calcium 8.2 mg/dL (8.5-10.5); Carbon Dioxide 26 mmol/L (22-29); Chloride 101 mmol/L (98-107); Globulin 1.8 g/dL (1.3-4.6); Glomerular Filtration Rate 74.5 mL/min (90-130); Glucose 138 mg/dL (65-115); Osmolality Calculated 289 mOsm/kg (285-295); Potassium 3.9 mmol/L (3.5-5.1); Sodium 138 mmol/L (136-145); Total Bilirubin 0.2 mg/dL (0.15-1.2); Total Protein 5.8 g/dL (6.6-8.7)
[2020-12-17 21:46] VITALS: PULSE 116; RESP 18; O2SAT 91
[2020-12-17 21:51] LABS: D Dimer 1.03 ug/mIFEU (0-0.59)
--- NOTE | 2020-12-17 21:55 | CTR_ITS ---
PROCEDURE INFORMATION: Exam: CTA Chest With Contrast Exam date and time: 12/17/2020 9:55 PM Age: 40 years old Clinical indication: Sternal or substernal pain; Additional info: Chest pain, SOB, sore throat TECHNIQUE: Imaging protocol: Computed tomographic angiography of the chest with contrast. 3D rendering (Not supervised by radiologist): MIP and/or 3D reconstructed images were created by the technologist. Total images: 942 Radiation optimization: All CT scans at this facility use at least one of these dose optimization techniques: automated exposure control; mA and/or kV adjustment per patient size (includes targeted exams where dose is matched to clinical indication); or iterative reconstruction. Contrast material: OMNI 350; Contrast volume: 140 ml; Contrast route: INTRAVENOUS (IV); COMPARISON: CR (CHEST, ) 12/17/2020 9:11 PM RADIATION DOSE METRICS: Total DLP (mGy-cm): 1960.03 FINDINGS: Pulmonary arteries: Suboptimal pulmonary arterial contrast enhancement. No grossly visible central pulmonary embolism/pulmonary arterial thrombus. Aorta: The thoracic aorta is nonaneurysmal. No visible intimal flap or dissection. Lungs: No visible active interstitial or alveolar airspace disease. Large bleb medial basal segment left lower lobe dimensions 6.5 cm x 3.2 cm x 5.1 cm. No other evidence of restrictive or reactive airway disease. Pleural spaces: Unremarkable. No pneumothorax. No pleural effusion. Heart: No cardiomegaly. No visible pericardial effusion. No visible coronary artery disease. Lymph nodes: No visible active mediastinal or hilar lymphadenopathy. Bones/joints: No visible active or acute osseous pathology. Antecedent appearing compression wedge deformity T8. This was mentioned on the CT abdomen and pelvis examination report of 08/30/2018. Soft tissues: Unremarkable. CT/CT angio chest PE protcl [id number] IMPRESSION: 1. Suboptimal pulmonary arterial contrast enhancement. No grossly visible central pulmonary embolism/pulmonary arterial thrombus. 2. Large bleb medial basal segment left lower lobe. Radiation Dose CTDIVOL = (mGy): DLP = 1960.03 (mGy-cm)
[2020-12-17 22:04] LABS: Rapid Strep A Test Negative (Negative)
[2020-12-17 22:18] LABS: Influenza A by IFA Negative (Negative); Influenza B by IFA Negative (Negative)
[2020-12-17] MEDS: iohexol 350 mg/mL 100 mL Btl IV ×2 (22:19→22:21)
[2020-12-17 22:37] LABS: Specific Gravity, Urine 1.025 (1.005-1.030); Urine Appearance Clear (CLEAR); Urine Color Yellow (Yellow); pH Urine 5 (5-7)
[2020-12-17 22:38] LABS: Add Urine Microscopic? YES; Bilirubin Urine Neg (Negative); Blood Urine 2+ (Negative); Glucose Urine UA Norm (Normal); Ketones Urine Negative (Negative); Leukocyte Esterase Urine Negative (Negative); Nitrate Urine Negative (Negative); Protein Urine Neg (Negative); Urobilinogen Urine Norm (Negative)
[2020-12-17 22:41] LABS: Add Urine Culture? No; Bacteria Urine TRACE /hpf; Mucus Urine 3+ /hpf; RBC Urine 0-4 /hpf (0-2); Squamous Epithelial Cell Urine 0-4 /hpf (0-5); WBC Urine 0-4 /hpf (0-5)
[2020-12-17] MEDS: phenol oral Spray 177 mL 3 SPRAY MUCOUS MEM (23:13)
[2020-12-17] MEDS: amoxicillin 500 mg Capsule PO (23:14)
[2020-12-17 23:15] VITALS: BP 126/76; PULSE 116; RESP 20; O2SAT 96
--- NOTE | 2020-12-17 23:16 | W.ED.URI ---
HPI - URI/Sore Throat General: Chief Complaint: Upper Respiratory Infection Stated Complaint: SOB Time Seen by Provider: 12/17/20 21:09 History of Present Illness: HPI Narrative: The patient is a 40-year-old male who comes to the ER complaining of sore throat, shortness of breath, and chest pain. He says he also has a cough and it hurts in his left chest whenever he coughs. Also with deep breaths and palpation it reproduces the tenderness there. His tonsils have small ulcerations on them. Denies fever MD elicited complaint: cough and sore throat Onset (ago): day(s) (2) Consistency: constant Severity: mild Able to tolerate fluids by mouth: Yes Exacerbating factors: swallowing Associated symptoms: Reports chest pain, cough, short of breath and sore throat; Deny abdominal pain, chills, ear or mastoid pain, fever(s), headache(s) or nasal congestion Review of Systems General: Reports: 10 or more systems reviewed and unremarkable except in HPI and below Const: Denies: fever(s) or chills Eyes: Denies: change in vision, blurry vision or eye redness ENMT: Reports: throat pain and odynophagia; Denies: swelling of lips/tongue, ear or mastoid pain or nasal congestion Card: Reports: chest pain Resp: Reports: dyspnea and non-productive cough; Denies: productive cough GI: Denies: abdominal pain : Denies: flank pain, urinary frequency or urinary urgency Musc: Denies: neck pain, back pain, extremity pain, joint pain, joint redness, limited range of motion or muscle weakness Skin/Breast: Denies: rash, pruritus, erythema, skin pain or skin tenderness Neuro: Denies: headache(s) Psych: Denies: anxiety or depression Endo: Denies: polyuria All/Imm: Denies: urticaria, throat swelling or tongue swelling PFSH ED PFSH: Medical History (Updated 12/17/20 @ 23:26 by Mac Michael MD) Alcoholism Anxiety Bipolar disorder Chronic back pain Depression GI bleed Hepatitis IBS (irritable bowel syndrome) Intermittent explosive disorder PTSD (post-traumatic stress disorder) Rectal bleed Seizure disorder Substance abuse Suicidal ideation Suicide attempt Surgical History History of back surgery Social History Smoking and tobacco status: current every day smoker smokeless tobacco Smokeless tobacco user: snuff Smokeless tobacco details: 1 can/2 weeks Quit status (tobacco): not considering quitting Second hand smoke exposure: No Current gender identity: Male Physical Exam Const: COMMON NORMALS: no acute distress, average body habitus, patient oriented x3, no limitations, healthy appearing, alert and well nourished GENERAL APPEARANCE: cooperative, comfortable, well kempt and well developed ORIENTATION/CONSCIOUSNESS: Yes awake, Yes oriented to person, Yes oriented to place and Yes oriented to time HENMT: COMMON NORMALS: normocephalic, external ears normal and Normal external nose present HEAD & SCALP: normal to inspection and normocephalic NOSE: Normal external nose present EXTERNAL EAR: Yes external ears normal MOUTH: Normal oral and palatal mucosa present THROAT: posterior oropharynx normal OTHER: Tonsils slightly swollen with vesicles on them bilaterally likely strep versus viral pathology. Airway patent. Eye: COMMON NORMALS: Equal, round and reactive pupils present and EOMs intact bilaterally GENERAL EYE: appearance normal, both eyes and all related structures PUPIL: Yes Equal, round and reactive pupils present Neck/C-Spine: COMMON NORMALS: full ROM, no lymphadenopathy, no meningeal signs and no JVD GENERAL: Yes normal visual inspection Lymph: LYMPHATIC: no lymphadenopathy noted Chest: COMMONS NORMALS: normal inspection of the chest and normal palpation of entire chest wall OTHER: Reproducible chest wall tenderness on palpation. It is the same as his chief complaint and with deep breaths and coughing. Resp: COMMON NORMALS: normal respiratory effort, No retractions, No use of accessory muscles, clear to auscultation bilaterally and percussion normal EFFORT & INSPECTION: Yes able to speak in complete sentences AUSCULTATION: clear to auscultation bilaterally PERCUSSION: percussion normal Cardio: COMMON NORMALS: no JVD, regular rate, regular rhythm, S1 normal heart sound present, S2 normal heart sound present and Peripheral pulses 2+ throughout RATE: regular rate RHYTHM: regular rhythm HEART SOUNDS: S1 normal heart sound present and S2 normal heart sound present PERIPHERAL PULSES: Peripheral pulses 2+ throughout GI: COMMON NORMALS: Normal to inspection, nondistended, normoactive bowel sounds present, Soft to palpation, non-tender and no masses INSPECTION: Yes normal to inspection PALPATION: Yes Soft to palpation : COMMON NORMALS: Yes no CVA tenderness BLADDER/KIDNEY EXAM: Yes no CVA tenderness Back/Pelvis: COMMON NORMALS: no CVA tenderness, thoracic and lumbar spine normal to inspection, no thoracic nor lumbar tenderness and thoraco-lumbar ROM normal Extremity: COMMON NORMALS: normal to inspection, full ROM, capillary refill normal, no joint enlargement and no pedal edema GENERAL: Yes normal exam except as noted Neuro: COMMON NORMALS: patient oriented x3, CN's II-XII intact bilaterally, moves all extremities, no focal motor deficits, no sensory deficits noted and gait normal SENSORIUM/ORIENTATION: Yes alert, Yes oriented to person, Yes oriented to place and Yes oriented to time MENINGEAL SIGNS: Yes no meningeal signs Psych: COMMON NORMALS: mental status grossly normal, Normal thought process present, cooperative, normal affect and speech normal APPEARANCE: Yes well kempt ATTITUDE: Yes calm SPEECH: Yes normal speech THOUGHT PROCESS: Normal thought process present Skin: COMMON NORMALS: no rashes or lesions noted GENERAL SKIN EXAM: no rashes or lesions noted Course Vital Signs: Vital signs: Vital Signs Temperature 98.2 F 12/17/20 21:07 Pulse Rate 116 H 12/17/20 23:15 Respiratory Rate 20 H 12/17/20 23:15 Blood Pressure 126/76 12/17/20 23:15 Pulse Oximetry 96 12/17/20 23:15 MDM - URI/Sore Throat MDM Narrative: Medical decision making narrative: Fadumo andPatient comes in with tonsillitis action. Imaging is negative for significant pathology. He is satting well. Slightly tachycardic but given a liter of fluids and he is eating and drinking well. He feels the fentanyl for eating and drinking so he was given codeine cough syrup which did help his symptoms. He was able to drink well with that. He will be given a prescription home. He was told not to mix it with drugs, alcohol, nor drive while taking it and he says he will not. He no longer takes Suboxone and has not had a problem with opiates in many years he says. Recommended he follow-up with his primary care physician in a couple days to monitor improvement of his symptoms and return to the ER at anytime with worsening symptoms Lab Data: Labs: Lab Results 12/17/20 12/17/20 12/17/20 Range/Units 20:18 20:18 20:18 WBC 7.4 (4.0-10.0) 10^3/ uL RBC 4.00 L (4.1-5.3) 10^6/u L Hgb 12.3 (11.7-16.6) g/dL Hct 38.1 L (42.0-52.0) % MCV 95.3 H (80-94) fL MCH 30.8 (28.0-34.0) pg MCHC 32.3 (30.0-36.0) g/dL RDW 13.4 (12.1-15.1) % Plt Count 161 (130-400) 10^3/c mm MPV 11.1 H (7.4-10.4) fL Neut % (Auto) 54.8 % Lymph % (Auto) 27.8 % [place] % (Auto) 13.0 % Eos % (Auto) 3.6 % Baso % (Auto) 0.5 % Neut # (Auto) 4.07 (1.8-7.7) 10^3/u L Lymph # (Auto) 2.1 (0.8-4.8) 10^3/u L [place] # (Auto) 1.0 H (0.2-0.9) 10^3/u L Eos # (Auto) 0.3 (0.0-0.8) 10^3/u L Baso # (Auto) 0.0 (0.0-0.1) 10^3/u L Nucleated RBC % (a uto) 0 % Nucleated RBCs # 0.0 /100WBC D-Dimer 1.03 H (0-0.59) ug/mIFE U Sodium 138 (136-145) mmol/L Potassium 3.9 (3.5-5.1) mmol/L Chloride 101 (98-107) mmol/L Carbon Dioxide 26 (22-29) mmol/L Anion Gap 14.9 (5-19) BUN 15 (6-20) mg/dL Creatinine 1.1 (0.7-1.2) mg/dL GFR Calculation 74.5 L (90-130) mL/min Glucose 138 H (65-115) mg/dL Calculated Osmolal ity 289 (285-295) mOsm/k g Calcium 8.2 L (8.5-10.5) mg/dL Total Bilirubin 0.2 (0.15-1.2) mg/dL AST 477 H (0-40) U/L ALT 163 H (0-41) U/L Alkaline Phosphata se 89 (40-130) IU/L Troponin T Baselin e (0-15) ng/L Troponin T 120 Min [place] (0-15) ng/L Delta Troponin T (0-10) ABS# Total Protein 5.8 L (6.6-8.7) g/dL Albumin 4.0 (3.5-5.2) g/dL Globulin 1.8 (1.3-4.6) g/dL Urine Color (Yellow) Urine Appearance (CLEAR) Urine pH (5-7) Ur Specific Gravit y (1.005-1.030) Urine Protein (Negative) Urine Glucose (UA) (Normal) Urine Ketones (Negative) Urine Blood (Negative) Urine Nitrate (Negative) Urine Bilirubin (Negative) Urine Urobilinogen (Negative) mg/dL Ur Leukocyte La ase (Negative) Urine RBC (0-2) /hpf Urine WBC (0-5) /hpf Ur Squamous Epith Cells (0-5) /hpf Amorphous Sediment Urine Bacteria (NONE) /hpf Urine Mucus /hpf Influenza Type A A g (Negative) Influenza Type B A g (Negative) Group A Strep Rapi d (Negative) 12/17/20 12/17/20 12/17/20 Range/Units 20:18 21:37 21:52 WBC (4.0-10.0) 10^3/ uL RBC (4.1-5.3) 10^6/u L Hgb (11.7-16.6) g/dL Hct (42.0-52.0) % MCV (80-94) fL MCH (28.0-34.0) pg MCHC (30.0-36.0) g/dL RDW (12.1-15.1) % Plt Count (130-400) 10^3/c mm MPV (7.4-10.4) fL Neut % (Auto) % Lymph % (Auto) % [place] % (Auto) % Eos % (Auto) % Baso % (Auto) % Neut # (Auto) (1.8-7.7) 10^3/u L Lymph # (Auto) (0.8-4.8) 10^3/u L [place] # (Auto) (0.2-0.9) 10^3/u L Eos # (Auto) (0.0-0.8) 10^3/u L Baso # (Auto) (0.0-0.1) 10^3/u L Nucleated RBC % (a uto) % Nucleated RBCs # /100WBC D-Dimer (0-0.59) ug/mIFE U Sodium (136-145) mmol/L Potassium (3.5-5.1) mmol/L Chloride (98-107) mmol/L Carbon Dioxide (22-29) mmol/L Anion Gap (5-19) BUN (6-20) mg/dL Creatinine (0.7-1.2) mg/dL GFR Calculation (90-130) mL/min Glucose (65-115) mg/dL Calculated Osmolal ity (285-295) mOsm/k g Calcium (8.5-10.5) mg/dL Total Bilirubin (0.15-1.2) mg/dL AST (0-40) U/L ALT (0-41) U/L Alkaline Phosphata se (40-130) IU/L Troponin T Baselin e 13 (0-15) ng/L Troponin T 120 Min [place] (0-15) ng/L Delta Troponin T (0-10) ABS# Total Protein (6.6-8.7) g/dL Albumin (3.5-5.2) g/dL Globulin (1.3-4.6) g/dL Urine Color (Yellow) Urine Appearance (CLEAR) Urine pH (5-7) Ur Specific Gravit y (1.005-1.030) Urine Protein (Negative) Urine Glucose (UA) (Normal) Urine Ketones (Negative) Urine Blood (Negative) Urine Nitrate (Negative) Urine Bilirubin (Negative) Urine Urobilinogen (Negative) mg/dL Ur Leukocyte La ase (Negative) Urine RBC (0-2) /hpf Urine WBC (0-5) /hpf Ur Squamous Epith Cells (0-5) /hpf Amorphous Sediment Urine Bacteria (NONE) /hpf Urine Mucus /hpf Influenza Type A A g Negative (Negative) Influenza Type B A g Negative (Negative) Group A Strep Rapi d Negative (Negative) 12/17/20 12/17/20 Range/Units 22:20 22:30 WBC (4.0-10.0) 10^3/ uL RBC (4.1-5.3) 10^6/u L Hgb (11.7-16.6) g/dL Hct (42.0-52.0) % MCV (80-94) fL MCH (28.0-34.0) pg MCHC (30.0-36.0) g/dL RDW (12.1-15.1) % Plt Count (130-400) 10^3/c mm MPV (7.4-10.4) fL Neut % (Auto) % Lymph % (Auto) % [place] % (Auto) % Eos % (Auto) % Baso % (Auto) % Neut # (Auto) (1.8-7.7) 10^3/u L Lymph # (Auto) (0.8-4.8) 10^3/u L [place] # (Auto) (0.2-0.9) 10^3/u L Eos # (Auto) (0.0-0.8) 10^3/u L Baso # (Auto) (0.0-0.1) 10^3/u L Nucleated RBC % (a uto) % Nucleated RBCs # /100WBC D-Dimer (0-0.59) ug/mIFE U Sodium (136-145) mmol/L Potassium (3.5-5.1) mmol/L Chloride (98-107) mmol/L Carbon Dioxide (22-29) mmol/L Anion Gap (5-19) BUN (6-20) mg/dL Creatinine (0.7-1.2) mg/dL GFR Calculation (90-130) mL/min Glucose (65-115) mg/dL Calculated Osmolal ity (285-295) mOsm/k g Calcium (8.5-10.5) mg/dL Total Bilirubin (0.15-1.2) mg/dL AST (0-40) U/L ALT (0-41) U/L Alkaline Phosphata se (40-130) IU/L Troponin T Baselin e (0-15) ng/L Troponin T 120 Min [place] 10.10 (0-15) ng/L Delta Troponin T -2.90 L (0-10) ABS# Total Protein (6.6-8.7) g/dL Albumin (3.5-5.2) g/dL Globulin (1.3-4.6) g/dL Urine Color Yellow (Yellow) Urine Appearance Clear (CLEAR) Urine pH 5 (5-7) Ur Specific Gravit y 1.025 (1.005-1.030) Urine Protein Neg (Negative) Urine Glucose (UA) Norm (Normal) Urine Ketones Negative (Negative) Urine Blood 2+ H (Negative) Urine Nitrate Negative (Negative) Urine Bilirubin Neg (Negative) Urine Urobilinogen Norm (Negative) mg/dL Ur Leukocyte [place] Negative (Negative) Urine RBC 0-4 H (0-2) /hpf Urine WBC 0-4 H (0-5) /hpf Ur Squamous Epith Cells 0-4 H (0-5) /hpf Amorphous Sediment Not Reportable Urine Bacteria Trace (NONE) /hpf Urine Mucus 3+ /hpf Influenza Type A A g (Negative) Influenza Type B A g (Negative) Group A Strep Rapi d (Negative) Discharge Plan Discharge Patient Disposition: Home Clinical Impression: Acute tonsillitis, Acute viral syndrome Condition: Stable Prescriptions: New amoxicillin 500 mg capsule 500 mg PO TID 10 Days Qty: 30 RF: 0 albuterol sulfate 90 mcg/actuation HFA aerosol inhaler 2 inh inhalation Q6H PRN (Reason: shortness of breath or wheezing) 30 Days RF: 0 codeine-guaifenesin 10-100 mg/5 mL liquid 5 ml PO Q6H PRN (Reason: sore throat) 3 Days RF: 0 Discontinued buprenorphine-naloxone [Suboxone] 4-1 mg film 1 film sublingual DAILY RF: 0 No Action hydroxyzine pamoate [Vistaril] 50 mg capsule 50 mg PO Q8H PRN (Reason: anxiety) Qty: 20 RF: 0 lisinopril 20 mg tablet 20 mg PO DAILY RF: 0 clonidine HCl 0.1 mg tablet 0.1 mg PO TID RF: 0 quetiapine [Seroquel] 300 mg tablet 600 mg PO BEDTIME RF: 0 levetiracetam [Keppra] 500 mg tablet 500 mg PO BID RF: 0 Discharge Orders: Discharge ED (Routine); Ordered 12/17/20 Ordered By: Mac Michael Discharge Diet: Advance as tolerated Discharge Activity: Resume usual activity Patient Instructions: Tonsillitis (ED), Opioid Safety Activity Restrictions/Additional Instructions: You likely have an upper respiratory infection and infection in your tonsils which is causing you to have a cough and shortness of breath as well. Please take the amoxicillin to help with the tonsillitis. You may use albuterol to help with shortness of breath. Use Chloraseptic spray at home to help with the sore throat and drink lots of fluids. Follow-up with your primary care physician in a couple days to monitor improvement of your symptoms and return to the ER with worsening symptoms. Take Tylenol for pain and fever. You may take the codeine cough syrup only for severe throat pain and do not mix with other drugs or alcohol. You may also not operate machinery including driving vehicles while using this medication. Coding Level of Care Code ED Head Shipper for Edmond Fwgertrudis Exam Comprehensive
[2020-12-17] MEDS: guaiFENesin-codeine UDC 10 mL PO (23:38)
== END 2020-12-17 23:50 | disposition home or self-care (01) ==
PROVIDERS: Emergency Provider Family Medicine
DX: J03.90 Acute tonsillitis, unspecified (principal); B34.9 Viral infection, unspecified; F17.220 Nicotine dependence, chewing tobacco, uncomplicated
CPT/HCPCS: 36415; 71045; 71275; 80053; 81001; 84484; 85025; 85378; 87081; 87804; 87880; 93005; 94640; 96361; 96374; 99284; J2270; J7030; Q9967

== ENCOUNTER 2021-06-05 13:39 | Inpatient (IN) | payer MEDICAID, SELFPAY ==
[2021-06-05 13:59] VITALS: BP 168/108; PULSE 105; RESP 18; TEMP 36.9; O2SAT 98; BMI 34.7
--- NOTE | 2021-06-05 14:12 | ED_ITS ---
HPI - General Adult General: Chief complaint: Neuro Symptoms/Deficit Stated complaint: SI/ALCOHOL Time Seen by Provider: 06/05/21 13:47 History of Present Illness: HPI narrative: HPI: [40]yo patient w/ hx of depression BIBA for SI with plan. Patient reports extreme suicidality with plans blow my head off. On arrival, the patient is AAOx3 and cooperative with my evaluation. No focal complaints of chest pain, shortness of breath, palpitations, N/V, focal GI/ complaints. Denies HI. No complaints of hallucinations. Onset: chronic Duration: ongoing Location: home Severity: severe Review of Systems Narrative: Constitutional: No fever, no chills. HEENT: No vision changes CV: No chest pain, no palpitations PULM: No productive cough, no dyspnea. GI: No abdominal pain, no N/V/D. : No dysuria MSKEL: No muscle pain SKIN: No new rashes, no lesions. NEURO: No headache, no focal weakness. HEME: No visible bruises PSYCH: Normal mood, + SI PFSH ED PFSH: Medical History (Updated 06/05/21 @ 13:58 by Alia Pritchett MD) Alcoholism Anxiety Bipolar disorder Chronic back pain Depression GI bleed Hepatitis IBS (irritable bowel syndrome) Intermittent explosive disorder PTSD (post-traumatic stress disorder) Rectal bleed Seizure disorder Substance abuse Suicidal ideation Suicide attempt Surgical History History of back surgery Social History Smoking and tobacco status: current every day smoker smokeless tobacco Smokeless tobacco user: snuff Smokeless tobacco details: 1 can/2 weeks Quit status (tobacco): not considering quitting Second hand smoke exposure: No Current gender identity: Male Physical Exam Narrative: EXAM NARRATIVE: Head: Atraumatic Eyes: PERRL, conjunctiva without injection, eyes tracking ENT: Mucous membrane moist NECK: Supple without lymphadenopathy LUNGS: LCTAB CV: RRR ABDOMEN: Soft, nontender EXTREMITY: Normal ROM SKIN: No rash or erythema NEURO: Awake and alert. No focal weakness PSYCH: Cooperative mood and affect. Course Vital Signs: Vital signs: Vital Signs Temperature 98.4 F 06/05/21 13:59 Pulse Rate 99 06/05/21 16:35 Respiratory Rate 18 06/05/21 16:35 Blood Pressure 168/108 06/05/21 13:59 Pulse Oximetry 93 06/05/21 16:35 MDM - General Adult MDM Narrative: Medical decision making narrative: [40]yo patient w/ hx of SI presenting for SI w/ plan. HDS, exam within normal limit Thoughts are linear and organized, and the patient has no AH/VH, or HI. Clinically the patient displays no overt toxidrome; they are well appearing, with low suspicion for toxic ingestion given history and exam. Symptoms unlikely 2/2 anemia, hypothyroidism, infection, or ICH. Workup: CBC, CMP, Lipase, salicylate/tylenol, UDS Lab findings: wnl [3:30pm] On reassessment, labs and workup wnl. Patient is hemodynamically stable with no acute medical complaints. Case discussed with Dr. Arias who agrees with the admission. Disposition: Admitted to [facility] Lab Data: Labs: Lab Results 06/05/21 06/05/21 06/05/21 16:43 16:43 16:49 WBC 7.7 10^3/uL 10^3/ uL (4.0-10.0) RBC 4.86 10^6/uL 10^6 /uL (4.1-5.3) Hgb 14.5 g/dL g/dL (11.7-16.6) Hct 44.4 % % (42.0-52.0) MCV 91.4 fl fl (80-94) MCH 29.8 pg pg (28.0-34.0) MCHC 32.7 g/dL g/dL (30.0-36.0) RDW 13.8 % % (12.1-15.1) Plt Count 192 10^3/cmm 10^3 /cmm (130-400) MPV 10.4 fL fL (7.4-10.4) Neut % (Auto) 61.2 % % Lymph % (Auto) 22.8 % % [place] % (Auto) 12.2 % % Eos % (Auto) 2.8 % % Baso % (Auto) 0.5 % % Neut # (Auto) 4.72 10^3/uL 10^3 /uL (1.8-7.7) Lymph # (Auto) 1.8 10^3/uL 10^3/ uL (0.8-4.8) [place] # (Auto) 0.9 10^3/uL 10^3/ uL (0.2-0.9) Eos # (Auto) 0.2 10^3/uL 10^3/ uL (0.0-0.8) Baso # (Auto) 0.0 10^3/uL 10^3/ uL (0.0-0.1) Nucleated RBC % (a uto) 0 % % Nucleated RBCs # 0.0 /100WBC /100W BC Sodium 143 mmol/L mmol/L (136-145) Potassium 4.3 mmol/L mmol/L (3.5-5.1) Chloride 105 mmol/L mmol/L (98-107) Carbon Dioxide 24 mmol/L mmol/L (22-29) Anion Gap 18.3 (5-19) BUN 12 mg/dL mg/dL (6-20) Creatinine 1.0 mg/dL mg/dL (0.7-1.2) GFR Calculation 83.2 mL/min L mL/ min (90-130) Glucose 99 mg/dL mg/dL (65-115) Calculated Osmolal ity 296 mOsm/kg H mOs m/kg (285-295) Calcium 8.5 mg/dL mg/dL (8.5-10.5) TSH 2.63 uIU/mL uIU/m L (0.27-4.20) Free T4 1.18 ng/dL ng/dL (0.82-1.77) Salicylates < 0.3 mg/dL L mg/ dL (3-10) Urine Opiates Scre en Acetaminophen < 5.0 ug/mL L ug/ mL (10-30) Ur Barbiturates Sc reen Ur Phencyclidine S crn Ur Amphetamines Sc reen U Benzodiazepines Scrn Urine Cocaine Scre en U Marijuana (THC) Screen Ethyl Alcohol 34 mg/dL H mg/dL (0-10) SARS-CoV-2 Ag (Rap id) Negative (Negative) 06/05/21 19:00 WBC RBC Hgb Hct MCV MCH MCHC RDW Plt Count MPV Neut % (Auto) Lymph % (Auto) [place] % (Auto) Eos % (Auto) Baso % (Auto) Neut # (Auto) Lymph # (Auto) [place] # (Auto) Eos # (Auto) Baso # (Auto) Nucleated RBC % (a uto) Nucleated RBCs # Sodium Potassium Chloride Carbon Dioxide Anion Gap BUN Creatinine GFR Calculation Glucose Calculated Osmolal ity Calcium TSH Free T4 Salicylates Urine Opiates Scre en Negative ng/mL ng /mL (Negative) Acetaminophen Ur Barbiturates Sc reen Negative ng/mL ng /mL (Negative) Ur Phencyclidine S crn Negative ng/mL ng /mL (Negative) Ur Amphetamines Sc reen Negative ng/mL ng /mL (Negative) U Benzodiazepines Scrn Positive ng/mL H ng/mL (Negative) Urine Cocaine Scre en Negative ng/mL ng /mL (Negative) U Marijuana (THC) Screen Positive ng/mL H ng/mL (Negative) Ethyl Alcohol SARS-CoV-2 Ag (Rap id) Discharge Plan Discharge Patient Disposition: Admitted As Inpatient Clinical Impression: Suicidal ideation Condition: Stable Coding Level of Care Code ED Supply Chain Planner for Edmond Hwang
[2021-06-05] MEDS: LORazepam 2 mg/mL INJ 1 mL IM (14:18)
[2021-06-05] MEDS: buprenorphine-naloxone 4-1 mg Film 2 EACH SUBLINGUAL (14:44)
[2021-06-05] MEDS: diphenhydrAMINE 50 mg/mL SDV 1mL IM (14:44)
[2021-06-05] MEDS: haloperidol inj 5 mg/mL INJ 1 mL IM (14:44)
[2021-06-05 16:35] VITALS: PULSE 99; RESP 18; O2SAT 93
--- NOTE | 2021-06-05 16:49 | PC.NURSE ---
Pt refuses to stay still for EKG. RT at bedside trying to assist. Unsuccessful at this time. ERP made aware.
[2021-06-05 16:53] LABS: Basophils % 0.5 %; Eosinophils # 0.2 10^3/uL (0.0-0.8); Eosinophils % 2.8 %; Hematocrit 44.4 % (42.0-52.0); Hemoglobin 14.5 g/dL (11.7-16.6); Lymphocytes # 1.8 10^3/uL (0.8-4.8); Lymphocytes % 22.8 %; Mean Corpuscular HGB Conc 32.7 g/dL (30.0-36.0); Mean Corpuscular Hemoglobin 29.8 pg (28.0-34.0); Mean Corpuscular Volume 91.4 fl (80-94); Mean Platelet Volume 10.4 fL (7.4-10.4); Monocytes # 0.9 10^3/uL (0.2-0.9); Monocytes % 12.2 %; Neutrophils # 4.72 10^3/uL (1.8-7.7); Neutrophils % 61.2 %; Nucleated Red Blood Cells % 0 %; Platelet Count 192 10^3/cmm (130-400); Red Blood Count 4.86 10^6/uL (4.1-5.3); Red Cell Distribution Width 13.8 % (12.1-15.1); White Blood Count 7.7 10^3/uL (4.0-10.0)
--- NOTE | 2021-06-05 16:59 | PC.NURSE ---
Pt attempts to use urinal but unable to provide sample all this time.
[2021-06-05 17:11] LABS: SARS Covid-2 Antigen Negative (Negative)
[2021-06-05 17:24] LABS: Alcohol Level 34 mg/dL (0-10); Anion Gap 18.3 (5-19); Blood Urea Nitrogen 12 mg/dL (6-20); Calcium 8.5 mg/dL (8.5-10.5); Carbon Dioxide 24 mmol/L (22-29); Chloride 105 mmol/L (98-107); Free T4 Free Thyroxine 1.18 ng/dL (0.82-1.77); Glomerular Filtration Rate 83.2 mL/min (90-130); Glucose 99 mg/dL (65-115); Osmolality Calculated 296 mOsm/kg (285-295); Potassium 4.3 mmol/L (3.5-5.1); Sodium 143 mmol/L (136-145); Thyroid Stimulating Hormone 2.63 uIU/mL (0.27-4.20)
[2021-06-05 17:31] LABS: Acetaminophen < 5.0 ug/mL (10-30); Salicylate < 0.3 mg/dL (3-10)
[2021-06-05] MEDS: buprenorphine-naloxone 4-1 mg Film 1 EACH SUBLINGUAL (19:06)
[2021-06-05 19:58] LABS: Amphetamines Screen Urine Negative (Negative); Barbiturates Screen Urine Negative (Negative); Benzodiazepines Screen Urine Positive (Negative); Cocaine Screen Urine Negative (Negative); Opiate Screen Urine Negative (Negative); PCP Screen Urine Negative (Negative); THC Screen Urine Positive (Negative)
[2021-06-06] MEDS: buprenorphine-naloxone 4-1 mg Film 2 EACH SUBLINGUAL (04:42)
[2021-06-06 05:32] VITALS: BP 144/79; PULSE 82; RESP 18; TEMP 36.8; O2SAT 99
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
[2021-06-06 06:42] VITALS: BP 150/88; PULSE 110; RESP 18; TEMP 37.1; O2SAT 91
[2021-06-06 14:00] VITALS: BP 134/92; PULSE 89; RESP 18; TEMP 36.2; O2SAT 91
--- NOTE | 2021-06-06 14:11 | NPU.GN ---
[facility] Unit Group Topic:Group Topic:Coping Mechanisms General Mood of Group:Kyle was very vocal during group and was a social butterfly. His mental state was good along with his demeanor. This promotion writer did meet with client after group and completed the [facility] New Patient Packet. While completing the packet with client the client reported to this promotion writer. If the doctor sends me home because I may be leaving tomorrow. I will be found on the floor . The client then started to explain how he has been on suboxone for 5 years and it helps him, to talk with the doctor about it. This promotion writer did go and discuss with the doctor what the client reported and the clients concerns. The client thanked this promotion writer for everything and told this promotion writer. You genuinely care for others dont ever change that.
--- NOTE | 2021-06-06 16:25 | PC.SOCIAL ---
Completed New patient [facility] packet with client today for [facility] services.
[2021-06-06] MEDS: hyDROXYzine 25 mg Capsule 50 MG PO (20:16)
[2021-06-06] MEDS: quetiapine 300 mg Tablet 600 MG PO (20:17)
[2021-06-06] MEDS: trazodone 50 mg Tablet PO (20:17)
[2021-06-06 21:20] VITALS: BP 144/78; PULSE 93; RESP 17; O2SAT 95
[2021-06-07 06:32] VITALS: BP 127/70; PULSE 94; RESP 16; TEMP 36.3; O2SAT 98
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
[2021-06-07 13:18] VITALS: BP 127/70; PULSE 94; RESP 16; TEMP 36.3; O2SAT 98
--- NOTE | 2021-06-07 13:26 | NPU.GN ---
[facility] Unit Group Topic:Depression Bingo General Mood of Group: Kyle did not attend group . He said he wanted to sleep and go home. Kyle did get upset with staff today. This show card writer was able to calm client down. He was upset because he was on the phone with family and he was talking about something and a nursing staff over heard and said something to him. That got him upset. The family on the phone heard what was said and had it on recording with what was said by another staff that upset he client. Family spoke with this show card writer and this show card writer explained that this show card writer is [facility] staff and was calming the client down. Family was upset with what they heard from other staff and also asked why the client is not getting any medications. This show card writer suggested that the family call NPU and discuss their concerns with the staff and doctor.
== END 2021-06-07 13:30 | disposition home or self-care (01) | DRG 883 ==
LOC: ER 22:41 → NP 06-06 13:51
PROVIDERS: Admitting Provider Psychiatry & Neurology Psychiatry; Emergency Provider Emergency Medicine; Visit Provider Psychiatry & Neurology Psychiatry
DX: F60.2 Antisocial personality disorder (principal); F11.20 Opioid dependence, uncomplicated; R45.851 Suicidal ideations; F32.A Depression, unspecified; R45.850 Homicidal ideations; F10.10 Alcohol abuse, uncomplicated; F41.9 Anxiety disorder, unspecified; G89.29 Other chronic pain; M54.9 Dorsalgia, unspecified; F63.81 Intermittent explosive disorder; F43.10 Post-traumatic stress disorder, unspecified; F17.220 Nicotine dependence, chewing tobacco, uncomplicated
CPT/HCPCS: 80048; 80306; 80307; 84439; 84443; 85025; 87426; 96372; 97150; 97165; 99285; J0573; J1200; J1630; J2060

== ENCOUNTER 2021-11-19 18:14 | Emergency (ER) | payer MEDICAID, SELFPAY ==
[2021-11-19] VITALS (7 sets, daily range): BP systolic 105–160; BP diastolic 84–96; PULSE 102–118; RESP 13–15; TEMP 36.2; O2SAT 93–96; BMI 40.4
--- NOTE | 2021-11-19 18:33 | ECG_ITS ---
[facility] Test Date: 2021-11-19 Pat Name: Kyle Cartwright Department: Room: Gender: Male Shank Rander: : 1980 Requested By: Fei Cerda Order Number: [id number] Wallace MD: Aretha Xiong M.D. Measurements Intervals [place] Rate: 115 P: -5 RI: 120 QRS: 49 QRSD: 93 T: 38 QT: 322 QTc: 446 Interpretive Statements SINUS TACHYCARDIA Compared to ECG 12/17/2020 21:39:59 No significant changes Electronically Signed On 11-20-2021 13:25:39 CDT by Aretha Xiong M.D. [id number]
--- NOTE | 2021-11-19 18:33 | XRR_ITS ---
PROCEDURE INFORMATION: Exam: XR Chest Exam date and time: 11/19/2021 7:51 PM Age: 41 years old Clinical indication: Other: AMS TECHNIQUE: Imaging protocol: XR of the chest. Views: 1 view. COMPARISON: CR XR chest 1V portable [id number] 12/17/2020 9:11 PM FINDINGS: Lungs: Unremarkable. No consolidation. Pleural spaces: Unremarkable. No pleural effusion. No pneumothorax. Heart/Mediastinum: Unremarkable. No cardiomegaly. Bones/joints: Unremarkable. XR/XR chest 1V portable [id number] IMPRESSION: No acute radiographic findings.
--- NOTE | 2021-11-19 18:33 | CTR_ITS ---
PROCEDURE INFORMATION: Exam: CT Head Without Contrast Exam date and time: 11/19/2021 7:30 PM Age: 41 years old Clinical indication: Condition or disease; Convulsions or seizures; Unspecified; Patient HX: Seizure activity - off meds x 2 days; Additional info: AMS TECHNIQUE: Imaging protocol: Computed tomography of the head without contrast. Axial, coronal and sagittal reformatted images were created and reviewed. Radiation optimization: All CT scans at this facility use at least one of these dose optimization techniques: automated exposure control; mA and/or kV adjustment per patient size (includes targeted exams where dose is matched to clinical indication); or iterative reconstruction. COMPARISON: CT head wo con* [id number] 10/09/2019 4:20 PM RADIATION DOSE METRICS: Total DLP (mGy-cm): 1717.43 FINDINGS: Brain: No CT evidence of acute intracranial hemorrhage or acute territorial infarction. No significant mass effect or midline shift. Basal cisterns patent. Cerebral ventricles: Normal in size and configuration. Paranasal sinuses: Mild ethmoid and right maxillary sinus mucosal thickening. No air-fluid levels. Mastoid air cells: Grossly unremarkable. Bones/joints: No acute osseous abnormality. Soft tissues: Grossly unremarkable. CT/CT head wo con* [id number]: 1[address] No CT evidence of acute intracranial pathology. 2. Additional findings, as above.
[2021-11-19 18:53] LABS: ABG PCO2 49.6 mmHg (35-45); ABG PH Result 7.37 (7.35-7.45); Arterial Blood Gas Hematocrit 47.8 % (42-52); Blood Gas Sample Site Brachial, left; Blood Gas Sample Type Arterial; HCO3 ABG 28.4 mmol/L (22-26); Oxygen Device NC; PO2 ABG 47.9 mmHg (80.0-100.0)
[2021-11-19 19:47] LABS: Basophils # 0.1 10^3/uL (0.0-0.1); Eosinophils # 0.2 10^3/uL (0.0-0.8); Eosinophils % 3.3 %; Hematocrit 49.5 % (42.0-52.0); Hemoglobin 15.8 g/dL (11.7-16.6); Lymphocytes # 2.1 10^3/uL (0.8-4.8); Lymphocytes % 34.2 %; Mean Corpuscular HGB Conc 31.9 g/dL (30.0-36.0); Mean Corpuscular Hemoglobin 29.6 pg (28.0-34.0); Mean Corpuscular Volume 92.9 fl (80-94); Mean Platelet Volume 11.6 fL (7.4-10.4); Monocytes # 0.7 10^3/uL (0.2-0.9); Monocytes % 11.4 %; Neutrophils # 3.05 10^3/uL (1.8-7.7); Neutrophils % 49.6 %; Nucleated Red Blood Cells % 0 %; Platelet Count 187 10^3/cmm (130-400); Red Blood Count 5.33 10^6/uL (4.1-5.3); Red Cell Distribution Width 12.9 % (12.1-15.1); White Blood Count 6.1 10^3/uL (4.0-10.0)
[2021-11-19] MEDS: sodium chloride 0.9% 1,000 ML 999 ML IV (19:53)
--- NOTE | 2021-11-19 20:15 | W.ED.AMS ---
HPI - Altered Mental Status General: Chief Complaint: Altered Mental Status Stated Complaint: SEIZURE Time Seen by Provider: 11/19/21 18:27 Source: EMS History of Present Illness: 41-year-old male who by family and EMS report was on the back deck. He had run out of seizure medicine and had not had it in a couple of days. Family went inside and came back out to find him not responding lying on the deck. He was breathing. He had a pulse. EMS was called. He was minimally responsive to noxious stimuli on EMS arrival. He was placed on oxygen and brought here. No other intervention, as his vitals were stable. MD complaint: altered mental status and decreased responsiveness Onset (ago): minute(s) Severity: moderate Context: seizure disorder and unknown Treatments prior to arrival: oxygen Review of Systems General: Reports: ROS unobtainable due to mental status PFS ED PFSH: Medical History (Updated 11/20/21 @ 01:49 by Fei Chan DO) Alcoholism Anxiety Bipolar disorder Chronic back pain Depression GI bleed Hepatitis IBS (irritable bowel syndrome) Intermittent explosive disorder PTSD (post-traumatic stress disorder) Rectal bleed Seizure disorder Substance abuse Suicidal ideation Suicide attempt Surgical History History of back surgery Social History Smoking and tobacco status: current every day smoker smokeless tobacco Smokeless tobacco user: snuff Smokeless tobacco details: 1 can/2 weeks Quit status (tobacco): not considering quitting Second hand smoke exposure: No Current gender identity: Male Physical Exam Const: GENERAL APPEARANCE: disheveled NUTRITIONAL APPEARANCE: obese ORIENTATION/CONSCIOUSNESS: Yes patient obtunded HENMT: COMMON NORMALS: normocephalic, atraumatic and Normal external nose present HEAD & SCALP: normocephalic and atraumatic FACE & SINUS: normal facial exam and face symmetric NOSE: Normal external nose present and Normal nares present Eye: COMMON NORMALS: Equal, round and reactive pupils present, EOMs intact bilaterally and conjunctivae normal CONJUNCTIVA: Yes conjunctivae normal PUPIL: Yes Equal, round and reactive pupils present Neck/C-Spine: COMMON NORMALS: full ROM Chest: COMMONS NORMALS: normal inspection of the chest Resp: COMMON NORMALS: normal respiratory effort and No use of accessory muscles EFFORT & INSPECTION: No tracheal deviation AUSCULTATION: rhonchi (Slight) Cardio: COMMON NORMALS: regular rate and regular rhythm RATE: regular rate RHYTHM: regular rhythm GI: COMMON NORMALS: Normal to inspection, nondistended, normoactive bowel sounds present and Soft to palpation PALPATION: Yes Soft to palpation Neuro: MAYCO COMA SCALE: document GCS findings [place] coma scale eye opening: To pressure [place] coma scale verbal response: Sounds [place] coma scale motor response: Localising [place] coma scale total score: 9 SENSORIUM/ORIENTATION: Yes obtunded CRANIAL NERVES: Yes CN normal except as noted MOTOR EXAM: Motor abnormalities not present and No Motor fasciculations present Course Vital Signs: Vital signs: Vital Signs Temperature 97.1 F L 11/19/21 18:28 Pulse Rate 85 11/20/21 06:38 Respiratory Rate 18 11/20/21 06:38 Blood Pressure 155/88 11/20/21 06:38 Pulse Oximetry 98 11/20/21 06:38 MDM - Altered Mental Status Medical Decision Making 41-year-old male who was obtunded following potential seizure with postictal state versus potential overdose on Seroquel. He is experienced no arrhythmias on the monitor. His vitals are good. Minimal tachycardia of 104 currently. His oxygen saturations are 94% on 2 L. Blood gas shows minimal respiratory acidosis. CBC and BMP are normal. Head CT is negative for acute findings. Chest x-ray is also negative. He remains essentially obtunded. He arouses to touch and painful stimuli. 11/20/21 @ 0147: Kyle is now awake, and answering questions. He believes he may have had a seizure. We spoke with his mother. It seems she thinks that he is out of seizure medication, and he may have had some Soma and his seizure medication bottle. He is usually on Keppra as far as we know. I offered to prescribe him some seizure medication. I also warned him that some muscle relaxers such as Soma can provoke seizure. He adamantly denies any suicidal thought, intention, or act. He will be discharged in the custody of his mother when she arrives. Lab Data : 11/19/21 19:43 11/19/21 20:23 Radiology Impressions Chest X-Ray 11/19/21 18:33 IMPRESSION: No acute radiographic findings. Head CT 11/19/21 18:33 IMPRESSION: 1. No CT evidence of acute intracranial pathology. 2. Additional findings, as above. Laboratory Results WBC 6.1 10^3/uL (4.0-10.0) 11/19/21 19:43 RBC 5.33 10^6/uL (4.1-5.3) H 11/19/21 19:43 Hgb 15.8 g/dL (11.7-16.6) 11/19/21 19:43 Hct 49.5 % (42.0-52.0) 11/19/21 19:43 MCV 92.9 fl (80-94) 11/19/21 19:43 MCH 29.6 pg (28.0-34.0) 11/19/21 19:43 MCHC 31.9 g/dL (30.0-36.0) 11/19/21 19:43 RDW 12.9 % (12.1-15.1) 11/19/21 19:43 Plt Count 187 10^3/cmm (130-400) 11/19/21 19:43 MPV 11.6 fL (7.4-10.4) H 11/19/21 19:43 Neut % (Auto) 49.6 % 11/19/21 19:43 Lymph % (Auto) 34.2 % 11/19/21 19:43 Young % (Auto) 11.4 % 11/19/21 19:43 Eos % (Auto) 3.3 % 11/19/21 19:43 Baso % (Auto) 1.0 % 11/19/21 19:43 Neut # (Auto) 3.05 10^3/uL (1.8-7.7) 11/19/21 19:43 Lymph # (Auto) 2.1 10^3/uL (0.8-4.8) 11/19/21 19:43 Young # (Auto) 0.7 10^3/uL (0.2-0.9) 11/19/21 19:43 Eos # (Auto) 0.2 10^3/uL (0.0-0.8) 11/19/21 19:43 Baso # (Auto) 0.1 10^3/uL (0.0-0.1) 11/19/21 19:43 Nucleated RBC % (auto) 0 % 11/19/21 19:43 Nucleated RBCs # 0.0 /100WBC 11/19/21 19:43 Specimen Type Arterial 11/19/21 18:44 Sample Site Brachial, left 11/19/21 18:44 ABG pH 7.37 (7.35-7.45) 11/19/21 18:44 ABG pCO2 49.6 mmHg (35-45) H 11/19/21 18:44 ABG pO2 47.9 mmHg (80.0-100.0) L 11/19/21 18:44 ABG HCO3 28.4 mmol/L (22-26) H 11/19/21 18:44 ABG Base Excess 2.0 mmol/L (-2.0-2.0) 11/19/21 18:44 Ortiz Test N/a 11/19/21 18:44 Hematocrit 47.8 % (42-52) 11/19/21 18:44 O2 Delivery Device Nc 11/19/21 18:44 O2 Liters/Min 2.0 % 11/19/21 18:44 Photo Mask Processor ID Vitaliy 11/19/21 18:44 Sodium 142 mmol/L (136-145) 11/19/21 20:23 Potassium 4.6 mmol/L (3.5-5.1) 11/19/21 20:23 Chloride 106 mmol/L (98-107) 11/19/21 20:23 Carbon Dioxide 28 mmol/L (22-29) 11/19/21 20:23 Anion Gap 12.6 (5-19) 11/19/21 20:23 BUN 9 mg/dL (6-20) 11/19/21 20:23 Creatinine 0.7 mg/dL (0.7-1.2) 11/19/21 20:23 GFR Calculation 124.9 mL/min (90-130) 11/19/21 20:23 Glucose 90 mg/dL (65-115) 11/19/21 20:23 Calculated Osmolality 292 mOsm/kg (285-295) 11/19/21 20:23 Calcium 9.4 mg/dL (8.5-10.5) 11/19/21 20:23 Magnesium 1.7 mg/dL (1.7-2.3) 11/19/21 20:23 Total Bilirubin 0.2 mg/dL (0.15-1.2) 11/19/21 20: AST 16 U/L (0-40) 11/19/21 20: ALT 35 U/L (0-41) 11/19/21 20:23 Alkaline Phosphatase 101 IU/L (40-130) 11/19/21 20:23 Creatine Kinase 67 U/L (39-308) 11/19/21 20: Total Protein 6.4 g/dL (6.6-8.7) L 11/19/21 20: Albumin 4.1 g/dL (3.5-5.2) 11/19/21 20: Globulin 2.3 g/dL (1.3-4.6) 11/19/21 20: Urine Color Yellow (Yellow) 11/19/21 19:37 Urine Appearance Clear (CLEAR) 11/19/21 19:37 Urine pH 5 (5-7) 11/19/21 19:37 Ur Specific [place] 1.020 (1.005-1.030) 11/19/21 19:37 Urine Protein Neg (Negative) 11/19/21 19:37 Urine Glucose (UA) Norm (Normal) 11/19/21 19:37 Urine Ketones Negative (Negative) 11/19/21 19:37 Urine Blood Neg (Negative) 11/19/21 19:37 Urine Nitrate Negative (Negative) 11/19/21 19:37 Urine Bilirubin Neg (Negative) 11/19/21 19:37 Urine Urobilinogen Norm mg/dL (Negative) 11/19/21 19:37 Ur Leukocyte Esterase Negative (Negative) 11/19/21 19:37 Salicylates < 0.3 mg/dL (3-10) L 11/19/21 20:23 Urine Opiates Screen Negative ng/mL (Negative) 11/19/21 19:37 Acetaminophen < 5.0 ug/mL (10-30) L 11/19/21 20:23 Ur Barbiturates Screen Negative ng/mL (Negative) 11/19/21 19:37 Ur Phencyclidine Scrn Negative ng/mL (Negative) 11/19/21 19:37 Ur Amphetamines Screen Negative ng/mL (Negative) 11/19/21 19:37 U Benzodiazepines Scrn Positive ng/mL (Negative) H 11/19/21 19:37 Urine Cocaine Screen Negative ng/mL (Negative) 11/19/21 19:37 U Marijuana (THC) Screen Negative ng/mL (Negative) 11/19/21 19:37 Ethyl Alcohol < 10 mg/dL (0-10) 11/19/21 20:23 Discharge Plan Discharge Patient Disposition: Home Clinical Impression: Altered mental status, Seizure Condition: Stable Prescriptions: Continued Keppra 500 mg tablet 500 mg PO BID Qty: 30 0RF Rx Instructions: SEE PHARMACY COMMENTS No Action hydroxyzine pamoate [Vistaril] 50 mg capsule 50 mg PO Q8H PRN (Reason: anxiety) Qty: 20 0RF lisinopril 20 mg tablet 20 mg PO DAILY 0RF clonidine HCl 0.1 mg tablet 0.1 mg PO TID 0RF Seroquel 300 mg tablet 600 mg PO BEDTIME 30 Days Qty: 60 1RF Discharge Orders: Discharge ED (Routine); Ordered 11/20/21 Ordered By: Fei Chan Patient Instructions: Altered Mental Status (ED), Recurrent Seizures in Adults (ED) Activity Restrictions/Additional Instructions: Return for any worsening mental status, repeated seizures, fever, trouble breathing, any other concerning symptoms. Take your seizure medication as directed. Be careful of some muscle relaxers, as they can provoke seizure. Coding Level of Care Code ED Diamond Die Maker for Edmond Fwd Exam Comprehensive
[2021-11-19 20:44] LABS: Alanine Aminotransferase 35 U/L (0-41); Albumin Level 4.1 g/dL (3.5-5.2); Alkaline Phosphatase 101 IU/L (40-130); Anion Gap 12.6 (5-19); Aspartate Amino Transferase 16 U/L (0-40); Blood Urea Nitrogen 9 mg/dL (6-20); Calcium 9.4 mg/dL (8.5-10.5); Carbon Dioxide 28 mmol/L (22-29); Chloride 106 mmol/L (98-107); Creatine Phosphokinase 67 U/L (39-308); Globulin 2.3 g/dL (1.3-4.6); Glomerular Filtration Rate 124.9 mL/min (90-130); Glucose 90 mg/dL (65-115); Magnesium 1.7 mg/dL (1.7-2.3); Osmolality Calculated 292 mOsm/kg (285-295); Potassium 4.6 mmol/L (3.5-5.1); Sodium 142 mmol/L (136-145); Total Bilirubin 0.2 mg/dL (0.15-1.2); Total Protein 6.4 g/dL (6.6-8.7)
[2021-11-19 20:46] LABS: Acetaminophen < 5.0 ug/mL (10-30); Alcohol Level < 10 mg/dL (0-10); Salicylate < 0.3 mg/dL (3-10)
[2021-11-19 21:12] LABS: Add Urine Microscopic? NO; Charge for UA Resulting for Rev
[2021-11-19 21:13] LABS: Bilirubin Urine Neg (Negative); Blood Urine Neg (Negative); Glucose Urine UA Norm (Normal); Ketones Urine Negative (Negative); Leukocyte Esterase Urine Negative (Negative); Nitrate Urine Negative (Negative); Protein Urine Neg (Negative); Urine Appearance Clear (CLEAR); Urine Color Yellow (Yellow); Urobilinogen Urine Norm (Negative); pH Urine 5 (5-7)
[2021-11-19 21:22] LABS: Amphetamines Screen Urine Negative (Negative); Barbiturates Screen Urine Negative (Negative); Benzodiazepines Screen Urine Positive (Negative); Cocaine Screen Urine Negative (Negative); Opiate Screen Urine Negative (Negative); PCP Screen Urine Negative (Negative); THC Screen Urine Negative (Negative)
--- NOTE | 2021-11-20 00:52 | PC.NURSE ---
mom reports that pt had eatten and then went outside to smoke, was found outside approx 20mins later flat on his back not responding, mother states that he had soma in his kepra bottle he has been out of keppra for 2 weeks he has also been taking flexeril
[2021-11-20 02:00] VITALS: BP 164/98; PULSE 97; RESP 12; O2SAT 94
[2021-11-20] MEDS: quetiapine 300 mg Tablet 600 MG PO (05:00)
--- NOTE | 2021-11-20 06:37 | PC.NURSE ---
geovani contacted and ride set up, confirmation number [id number], ride to be here between [id number].
[2021-11-20 06:38] VITALS: BP 155/88; PULSE 85; RESP 18; O2SAT 98
== END 2021-11-20 06:40 | disposition home or self-care (01) ==
PROVIDERS: Emergency Provider Emergency Medicine
DX: R56.9 Unspecified convulsions (principal); T42.6X6A Underdosing of other antiepileptic and sedative-hypnotic drugs, initial encounter; Z91.138 Patient's unintentional underdosing of medication regimen for other reason
CPT/HCPCS: 36415; 36600; 70450; 71045; 80053; 80306; 80307; 81003; 82550; 82803; 83735; 85025; 93005; 96360; 99285; J7030

== ENCOUNTER 2022-10-05 14:58 | Emergency (ER) | payer MEDICAID, SELFPAY ==
--- NOTE | 2022-10-05 15:04 | ED.C_ITS ---
HPI - Psych General: Chief Complaint: Psychiatric Symptoms Stated Complaint: PSYCH EVAL Time Seen by Provider: 10/05/22 15:04 History of Present Illness: Mr. Daugherty is a 42-year-old gentleman with complex past medical history including substance abuse [facility] . He apparently has been out of his medications for a few days and has had seizure. He endorses some abdominal discomfort with diarrhea. He also endorses generalized malaise. Patient has very slowed responses and poor memory. He denies focal neurologic symptoms. No other specific changes in health, exacerbating, or alleviating factors identified. Onset (ago): day(s) Duration: changing over time History of same: Yes Context: not taking psychiatric medications and other Associated psychiatric symptoms: racing thoughts Review of Systems General: Reports: 10 or more systems reviewed and unremarkable except in HPI and below PFSH ED PFSH: Medical History (Updated 10/13/22 @ 00:02 by AARON Ellis) Alcoholism Anxiety Bipolar disorder Chronic back pain Depression GI bleed Hepatitis IBS (irritable bowel syndrome) Intermittent explosive disorder PTSD (post-traumatic stress disorder) Rectal bleed Seizure disorder Substance abuse Suicidal ideation Suicide attempt Surgical History History of back surgery Social History Smoking and tobacco status: current every day smoker smokeless tobacco Smokeless tobacco user: snuff Smokeless tobacco details: 1 can/2 weeks Quit status (tobacco): not considering quitting Second hand smoke exposure: No Current gender identity: Male Physical Exam Const: COMMON NORMALS: alert GENERAL APPEARANCE: cooperative and well developed HENMT: COMMON NORMALS: normocephalic and atraumatic HEAD & SCALP: normocephalic and atraumatic THROAT: posterior oropharynx normal Eye: COMMON NORMALS: conjunctivae normal CONJUNCTIVA: Yes conjunctivae normal SCLERA: sclerae normal Neck/C-Spine: COMMON NORMALS: supple GENERAL: Yes trachea midline Resp: COMMON NORMALS: normal respiratory effort EFFORT & INSPECTION: Yes able to speak in complete sentences Cardio: COMMON NORMALS: regular rate and regular rhythm RATE: regular rate RHYTHM: regular rhythm GI: COMMON NORMALS: Soft to palpation PALPATION: Yes Soft to palpation and No Tenderness to palpation present (GI) PERCUSSION: normal to percussion Extremity: GENERAL: Yes normal exam except as noted and No edema Neuro: COMMON NORMALS: moves all extremities SENSORIUM/ORIENTATION: Yes alert and No Orientation impaired Psych: COMMON NORMALS: mental status grossly normal and Normal thought process present THOUGHT PROCESS: Normal thought process present Course Vital Signs: Vital signs: Vital Signs Pulse Rate 113 H 10/05/22 22:54 Respiratory Rate 18 10/05/22 22:54 Blood Pressure 149/107 10/05/22 22:54 Pulse Oximetry 97 10/05/22 22:54 Oxygen Delivery Me thod 10/05/22 22:54 MDM - Psych Medical Decision Making 42-year-old gentleman with complex history presenting to the emergency department for stress in the context of not having medications. He is nontoxic, calm and cooperative, no focal neurologic deficits. Labs with no significant hematologic or metabolic abnormalities. Urinalysis is negative. UDS positive for benzodiazepines, toxic ingestions otherwise negative. Prior imaging reviewed and based on prior imaging and patient's clinical presentation I do not feel that repeat imaging is needed. Case discussed with psychiatry. Patient given clonidine, Vistaril, Suboxone, Keppra. Patient adamantly denies suicidal or homicidal ideation or intent. Patient agreeable with close outpatient follow-up plan. The results of ED evaluation were discussed with the patient including prescriptions and/or symptomatic cares (if applicable) including appropriate and responsible use, followup plan, and return precautions. The patient verbalized understanding and felt safe for discharge. Medical Records I reviewed the patient's medical records. Lab Data I reviewed the patient's lab results. 10/05/22 15:35 10/05/22 15:35 Laboratory Results WBC 6.4 10^3/uL (4.0-10.0) 10/05/22 15:35 RBC 5.52 10^6/uL (4.1-5.3) H 10/05/22 15:35 Hgb 16.3 g/dL (11.7-16.6) 10/05/22 15:35 Hct 49.8 % (42.0-52.0) 10/05/22 15:35 MCV 90.2 fl (80-94) 10/05/22 15:35 MCH 29.5 pg (28.0-34.0) 10/05/22 15:35 MCHC 32.7 g/dL (30.0-36.0) 10/05/22 15:35 RDW 12.9 % (12.1-15.1) 10/05/22 15:35 Plt Count 176 10^3/cmm (130-400) 10/05/22 15:35 MPV 11.2 fL (7.4-10.4) H 10/05/22 15:35 Neut % (Auto) 60.2 % 10/05/22 15:35 Lymph % (Auto) 29.9 % 10/05/22 15:35 Vance % (Auto) 6.7 % 10/05/22 15:35 Eos % (Auto) 2.0 % 10/05/22 15:35 Baso % (Auto) 0.9 % 10/05/22 15:35 Neut # (Auto) 3.83 10^3/uL (1.8-7.7) 10/05/22 15:35 Lymph # (Auto) 1.9 10^3/uL (0.8-4.8) 10/05/22 15:35 Vance # (Auto) 0.4 10^3/uL (0.2-0.9) 10/05/22 15:35 Eos # (Auto) 0.1 10^3/uL (0.0-0.8) 10/05/22 15:35 Baso # (Auto) 0.1 10^3/uL (0.0-0.1) 10/05/22 15:35 Nucleated RBC % (auto) 0 % 10/05/22 15:35 Nucleated RBCs # 0.0 /100WBC 10/05/22 15:35 Sodium 139 mmol/L (136-145) 10/05/22 15:35 Potassium 4.4 mmol/L (3.5-5.1) 10/05/22 15:35 Chloride 103 mmol/L (98-107) 10/05/22 15:35 Carbon Dioxide 26 mmol/L (22-29) 10/05/22 15:35 Anion Gap 14.4 (5-19) 10/05/22 15:35 BUN 11 mg/dL (6-20) 10/05/22 15:35 Creatinine 1.2 mg/dL (0.7-1.2) 10/05/22 15:35 GFR Calculation 66.7 mL/min (90-130) L 10/05/22 15:35 Glucose 81 mg/dL (65-115) 10/05/22 15:35 Calculated Osmolality 286 mOsm/kg (285-295) 10/05/22 15:35 Calcium 9.6 mg/dL (8.5-10.5) 10/05/22 15:35 Total Bilirubin 0.2 mg/dL (0.15-1.2) 10/05/22 15:35 AST 13 U/L (0-40) 10/05/22 15:35 ALT 22 U/L (0-41) 10/05/22 15:35 Alkaline Phosphatase 103 U/L (40-130) 10/05/22 15:35 Total Protein 7.3 g/dL (6.6-8.7) 10/05/22 15:35 Albumin 4.5 g/dL (3.5-5.2) 10/05/22 15:35 Globulin 2.8 g/dL (1.3-4.6) 10/05/22 15:35 TSH 0.62 uIU/mL (0.27-4.20) 10/05/22 15:35 Urine Color Yellow (Yellow) 10/05/22 17:32 Urine Appearance Clear (CLEAR) 10/05/22 17:32 Urine pH 6 (5-7) 10/05/22 17:32 Ur Specific [place] 1.020 (1.005-1.030) 10/05/22 17:32 Urine Protein Neg (Negative) 10/05/22 17:32 Urine Glucose (UA) Norm (Normal) 10/05/22 17:32 Urine Ketones Negative (Negative) 10/05/22 17:32 Urine Blood Neg (Negative) 10/05/22 17:32 Urine Nitrate Negative (Negative) 10/05/22 17:32 Urine Bilirubin Neg (Negative) 10/05/22 17:32 Urine Urobilinogen Neg mg/dL (Negative) 10/05/22 17:32 Ur Leukocyte Esterase Negative (Negative) 10/05/22 17:32 Salicylates < 0.3 mg/dL (3-10) L 10/05/22 15:35 Urine Opiates Screen Negative ng/mL (Negative) 10/05/22 17:32 Acetaminophen < 5.0 ug/mL (10-30) L 10/05/22 15:35 Ur Barbiturates Screen Negative ng/mL (Negative) 10/05/22 17:32 Ur Phencyclidine Scrn Negative ng/mL (Negative) 10/05/22 17:32 Ur Amphetamines Screen Negative ng/mL (Negative) 10/05/22 17:32 U Benzodiazepines Scrn Positive ng/mL (Negative) H 10/05/22 17:32 Urine Cocaine Screen Negative ng/mL (Negative) 10/05/22 17:32 U Marijuana (THC) Screen Negative ng/mL (Negative) 10/05/22 17:32 Ethyl Alcohol < 10 mg/dL (0-10) 10/05/22 15:35 Discharge Plan Discharge Patient Disposition: Home Clinical Impression: Encounter for medication refill, Seizure, Opioid abuse with withdrawal Condition: Stable Prescriptions: Continued clonidine HCl 0.1 mg tablet 0.1 mg PO QAM Qty: 30 0RF Seroquel 300 mg tablet 600 mg PO BEDTIME 30 Days Qty: 60 1RF Keppra 500 mg tablet 500 mg PO BID Qty: 60 0RF No Action Tylenol Ex Str Rapid Release 500 mg Tablet 1,000 mg PO Q6H PRN (Reason: Pain) buprenorphine-naloxone 8-2 mg tablet, sublingual 1 tab SUBLINGUAL BID Discharge Orders: Discharge ED (Routine); Ordered 10/05/22 Ordered By: Jyaa Moura Discharge Diet: Usual diet Discharge Activity: Limit activity as instructed Patient Instructions: Opioid Withdrawal (ED), Recurrent Seizures in Adults (ED) Activity Restrictions/Additional Instructions: Thank you for visiting the emergency department. You were seen and evaluated for need for medication refill. I am unable to refill some of your medications however I will represcribe your quetiapine, Keppra, clonidine. You need to follow-up with your previously prescribing physician and primary care provider. For seizures do not drive or operate machinery, do not cook or stand over open flames, do not climb tall objects, do not bathe in bathtubs or swimming in swimming pools, do not otherwise perform tasks that would be dangerous if you were to have another seizure. As discussed you do require follow-up in the outpatient setting for further psychiatric evaluation and care. [facility] [phone] If you or someone you care for is experiencing a psychiatric emergency, please call the crisis hotline ([employer]) 24-hours a day, 7 days a week at [phone]. The crisis stabilization center is located on the south side ([address] side of the hospital and is open from 11 AM to 9 PM daily. Their phone number is [phone]. You should also contact your previously prescribing physician. Additional opioid treatment may be available at [facility]. Return to the emergency department for anything that you are concerned about and feel needs emergency department evaluation. Coding Level of Care Code ED Glass Bulb Silverer for Edmond Hwang
[2022-10-05 15:14] VITALS: BP 158/127; PULSE 122; RESP 20; O2SAT 100
[2022-10-05 15:58] LABS: Basophils # 0.1 10^3/uL (0.0-0.1); Basophils % 0.9 %; Eosinophils # 0.1 10^3/uL (0.0-0.8); Hematocrit 49.8 % (42.0-52.0); Hemoglobin 16.3 g/dL (11.7-16.6); Lymphocytes # 1.9 10^3/uL (0.8-4.8); Lymphocytes % 29.9 %; Mean Corpuscular HGB Conc 32.7 g/dL (30.0-36.0); Mean Corpuscular Hemoglobin 29.5 pg (28.0-34.0); Mean Corpuscular Volume 90.2 fl (80-94); Mean Platelet Volume 11.2 fL (7.4-10.4); Monocytes # 0.4 10^3/uL (0.2-0.9); Monocytes % 6.7 %; Neutrophils # 3.83 10^3/uL (1.8-7.7); Neutrophils % 60.2 %; Nucleated Red Blood Cells % 0 %; Platelet Count 176 10^3/cmm (130-400); Red Blood Count 5.52 10^6/uL (4.1-5.3); Red Cell Distribution Width 12.9 % (12.1-15.1); White Blood Count 6.4 10^3/uL (4.0-10.0)
--- NOTE | 2022-10-05 16:19 | PC.PHAR ---
pt states he takes care of his own medications-pt states been out of buprenorphine-naloxone 8-2mg for 2 [address] [facility] last [facility] 08/23/22 5d/s [facility] last filled 08/05/22 7d/s- denisa last filled 05/03/22 500mg bid-pt states takes 500mg daily-notes are made in the pharmacy comments
[2022-10-05 16:40] LABS: Alanine Aminotransferase 22 U/L (0-41); Albumin Level 4.5 g/dL (3.5-5.2); Alkaline Phosphatase 103 U/L (40-130); Anion Gap 14.4 (5-19); Aspartate Amino Transferase 13 U/L (0-40); Blood Urea Nitrogen 11 mg/dL (6-20); Calcium 9.6 mg/dL (8.5-10.5); Carbon Dioxide 26 mmol/L (22-29); Chloride 103 mmol/L (98-107); Globulin 2.8 g/dL (1.3-4.6); Glomerular Filtration Rate 66.7 mL/min (90-130); Glucose 81 mg/dL (65-115); Osmolality Calculated 286 mOsm/kg (285-295); Potassium 4.4 mmol/L (3.5-5.1); Sodium 139 mmol/L (136-145); Thyroid Stimulating Hormone 0.62 uIU/mL (0.27-4.20); Total Bilirubin 0.2 mg/dL (0.15-1.2); Total Protein 7.3 g/dL (6.6-8.7)
[2022-10-05 16:44] LABS: Acetaminophen < 5.0 ug/mL (10-30); Alcohol Level < 10 mg/dL (0-10); Salicylate < 0.3 mg/dL (3-10)
[2022-10-05 17:14] VITALS: RESP 18
[2022-10-05 17:31] VITALS: BP 158/127
[2022-10-05] MEDS: levETIRAcetam 500 mg Tablet PO (17:31)
[2022-10-05] MEDS: cloNIDine 0.1 mg Tablet PO (17:31)
[2022-10-05 17:36] LABS: Add Urine Microscopic? NO; Charge for UA Resulting for Rev
[2022-10-05 17:42] LABS: Blood Urine Neg (Negative); Glucose Urine UA Norm (Normal); Ketones Urine Negative (Negative); Protein Urine Neg (Negative); Urine Appearance Clear (CLEAR); Urine Color Yellow (Yellow); pH Urine 6 (5-7)
[2022-10-05 17:43] LABS: Bilirubin Urine Neg (Negative); Leukocyte Esterase Urine Negative (Negative); Nitrate Urine Negative (Negative); Urobilinogen Urine Neg (Negative)
[2022-10-05 17:51] LABS: Amphetamines Screen Urine Negative (Negative); Barbiturates Screen Urine Negative (Negative); Benzodiazepines Screen Urine Positive (Negative); Cocaine Screen Urine Negative (Negative); Opiate Screen Urine Negative (Negative); PCP Screen Urine Negative (Negative); THC Screen Urine Negative (Negative)
[2022-10-05 22:54] VITALS: BP 149/107; PULSE 113; RESP 18; O2SAT 97
[2022-10-05] MEDS: hyDROXYzine 25 mg Capsule PO (22:59)
[2022-10-05] MEDS: buprenorphine-naloxone 4-1 mg Film 2 EACH SUBLINGUAL (23:10)
== END 2022-10-05 23:22 | disposition home or self-care (01) ==
PROVIDERS: Emergency Provider Emergency Medicine
DX: Z76.0 Encounter for issue of repeat prescription (principal); R56.9 Unspecified convulsions; F11.13 Opioid abuse with withdrawal; F17.220 Nicotine dependence, chewing tobacco, uncomplicated
CPT/HCPCS: 36415; 80053; 80306; 80307; 81003; 84443; 85025; 99284; J0573

== ENCOUNTER 2023-04-06 16:50 | Emergency (ER) | payer MEDICAID, SELFPAY ==
[2023-04-06 16:57] VITALS: BP 128/70; PULSE 107; RESP 18; TEMP 36.8; O2SAT 96
--- NOTE | 2023-04-06 17:25 | ED_ITS ---
HPI - Overdose General: Chief Complaint: Overdose Stated Complaint: fent overdose Time Seen by Provider: 04/06/23 17:07 Source: EMS Mode of arrival: EMS History of Present Illness: This patient was transported to the emergency department EMS after apparently a self administered opiate overdose. Prior to arrival he had received Narcan and IV fluids. Intent: unwilling to say COUNTS INCLUDE 234 BEDS AT THE [facility] ED PFSH: Medical History (Updated 04/06/23 @ 17:23 by Jay Amos DO) Alcoholism Anxiety Bipolar disorder Chronic back pain Depression GI bleed Hepatitis IBS (irritable bowel syndrome) Intermittent explosive disorder PTSD (post-traumatic stress disorder) Rectal bleed Seizure disorder Substance abuse Suicidal ideation Suicide attempt Surgical History History of back surgery Social History Smoking and tobacco status: current every day smoker smokeless tobacco Smokeless tobacco user: snuff Smokeless tobacco details: 1 can/2 weeks Quit status (tobacco): not considering quitting Second hand smoke exposure: No Current gender identity: Male Physical Exam Narrative: EXAM NARRATIVE: He is alert and able to answer questions in a reasonable goal-directed fashion however he is somewhat belligerent during our conversation Const: COMMON NORMALS: average body habitus and patient oriented x3 HENMT: COMMON NORMALS: normocephalic HEAD & SCALP: normocephalic FACE & SINUS: normal facial exam Eye: COMMON NORMALS: Equal, round and reactive pupils present and EOMs intact bilaterally PUPIL: Yes Equal, round and reactive pupils present Neck/C-Spine: COMMON NORMALS: full ROM Chest: COMMONS NORMALS: normal inspection of the chest Resp: COMMON NORMALS: normal respiratory effort EFFORT & INSPECTION: Yes able to speak in complete sentences GI: COMMON NORMALS: Normal to inspection, nondistended, normoactive bowel sounds present Back/Pelvis: COMMON NORMALS: thoracic and lumbar spine normal to inspection and thoraco-lumbar ROM normal Extremity: COMMON NORMALS: normal to inspection and full ROM Neuro: COMMON NORMALS: patient oriented x3, moves all extremities and no focal motor deficits SPEECH: speech normal Psych: COMMON NORMALS: mental status grossly normal and speech normal APPEARANCE: Yes unkempt ATTITUDE: Yes uncooperative and Yes Belligerent attititude/behavior present ACTIVITY/MOTOR BEHAVIOR: Yes appropriate eye contact SPEECH: Yes normal speech MOOD & AFFECT: Yes hostile affect JUDGEMENT: Limited judgement present (Psych) Skin: COMMON NORMALS: no rashes or lesions noted and no wounds GENERAL SKIN EXAM: no rashes or lesions noted Course Reevaluation(s): Reevaluation #1: Patient was very adamant that he be discharged from the emergency department. He states that he had no reason to be here and did not desire to stay here any longer unless we agree to give him Suboxone. Time: 17:30 Vital Signs: Vital signs: Vital Signs Temperature 98.2 F 04/06/23 16:57 Pulse Rate 107 H 04/06/23 16:57 Respiratory Rate 18 04/06/23 16:57 Blood Pressure 128/70 04/06/23 16:57 Pulse Oximetry 96 04/06/23 16:57 Oxygen Delivery Me thod Room Air 04/06/23 16:57 MDM - Overdose Medical Decision Making Patient was transported to our emergency department after a opiate overdose. Apparently the patient had taken fentanyl. There was some uncertainty as to his intent however the patient ultimately stated that he had no thoughts other than getting high. He is a longstanding opiate user. Prior to any significant intervention in the emergency department other than placing him in a room and on monitoring the patient completely awoke and depressed a very strong desire that he be discharged from the emergency department. He also requested Suboxone but due to departmental policy that is no longer ministered in this emergency department. This information was shared with him. He did not desire any ongoing medical care in the emergency department unless he could get Suboxone. He declined to answer any additional questions to include suicidality or homicidality but stated that that is his choice not to tell us or not. The patient has no definitive indication that other than lifestyle and poor choices he is a immediate risk to himself or others. We have no authority to hold him against his will and is doing so without such prescribed authorities battery so therefore he is being allowed to leave the emergency department under his free well. He is being allowed to leave the emergency department with instructions that he is welcome to return at any time. No radiology studies performed this visit Discharge Plan Discharge Patient Disposition: Home Clinical Impression: Poisoning by opiate or related narcotic Condition: Stable Prescriptions: No Action Tylenol Ex Str Rapid Release 500 mg Tablet 1,000 mg PO Q6H PRN (Reason: Pain) buprenorphine-naloxone 8-2 mg tablet, sublingual 1 tab SUBLINGUAL BID clonidine HCl 0.1 mg tablet 0.1 mg PO QAM Qty: 30 0RF Seroquel 300 mg tablet 600 mg PO BEDTIME 30 Days Qty: 60 1RF Keppra 500 mg tablet 500 mg PO BID Qty: 60 0RF Discharge Orders: Discharge ED (Routine); Ordered 04/06/23 Ordered By: Jay Amos Discharge Diet: Usual diet Patient Instructions: Opioid Safety, Pain Management Activity Restrictions/Additional Instructions: Do not use street drugs other opiates as they can cause your untimely . You are welcome to return to the emergency department anytime for thoughts of self-harm or harm to others etc. Coding Level of Care Code ED Hand Singer for Edmond Hwang
--- NOTE | 2023-04-06 17:29 | PC.NURSE ---
PT ARRIVED TO ED BY EMS AFTER SUSPECTED FENTYNAL OD. PT ARRIVED DIAPHORETIC AND TOSSING/TURNING IN [facility]. PT WOKE AN GOT OUT OF BED PULLING OFF LEADS AND PULLED OUT IV. PT STATES HE WANTS HIS CEBOXONE AND HE DOES NOT WANT TO BE ADMITTED FOR PSYCHIATRIC EVAL. PT DEMANDED TO BE GIVEN HIS CLOTHES SO HE COULD LEAVE. PT WOULD NOT ANSWER THE QUESTION WHEN ASKED IF HE WAS SUICIDAL OR HOMICIDAL. PT STATED I DO NOT HAVE TO TELL YOU THAT. PT STATED THAT ONCE HE LEFT HE WOULD GO SHOOT UP FENTYNAL AGAIN.
--- NOTE | 2023-04-06 17:34 | PC.NURSE ---
PHYSICIAN DC'D PT. PT REFUSED DC EDUCATION AND PAPERWORK.
== END 2023-04-06 17:36 | disposition home or self-care (01) ==
PROVIDERS: Emergency Provider Emergency Medicine
DX: T40.411A Poisoning by fentanyl or fentanyl analogs, accidental (unintentional), initial encounter (principal); F17.210 Nicotine dependence, cigarettes, uncomplicated; F17.220 Nicotine dependence, chewing tobacco, uncomplicated
CPT/HCPCS: 99281

== ENCOUNTER 2023-04-06 18:54 | Inpatient (IN) | payer MEDICAID, SELFPAY ==
[2023-04-06 19:04] VITALS: BMI 28.8
[2023-04-06 19:05] VITALS: BP 128/79; PULSE 112; RESP 16; O2SAT 94
--- NOTE | 2023-04-06 19:18 | ED.C_ITS ---
Documented by User: Jay Amos DO 04/06/23 23:09 HPI - Psych General: Chief Complaint: Psychiatric Symptoms Stated Complaint: Fentanyl use, SI Time Seen by Provider: 04/06/23 19:03 Source: patient Mode of arrival: ambulatory Limitations: no limitations History of Present Illness: This gentleman who left the emergency department earlier this afternoon has now returned. Again stating at this time that he is looking for opiates and is requesting Suboxone. He was noted to have alcohol on him upon his arrival at the emergency department which was confiscated and then he began to try to smoke cigarettes in the examination room. He would not answer when asked about intent on self-harm or harm to others. MD complaint: feels depressed Review of Systems Const: Denies: fever(s) or chills Resp: Denies: productive cough or non-productive cough GI: Denies: nausea, vomiting or diarrhea Musc: Denies: extremity pain or extremity swelling Psych: Reports: mood swings [facility] ED PFSH: Medical History (Updated 04/07/23 @ 17:31 by Collin Francis MD) Alcoholism Anxiety Bipolar disorder Chronic back pain Depression GI bleed Hepatitis IBS (irritable bowel syndrome) Intermittent explosive disorder PTSD (post-traumatic stress disorder) Rectal bleed Seizure disorder Substance abuse Suicidal ideation Suicide attempt Surgical History History of back surgery Social History Smoking and tobacco status: current every day smoker smokeless tobacco Smokeless tobacco user: snuff Smokeless tobacco details: 1 can/2 weeks Quit status (tobacco): not considering quitting Second hand smoke exposure: No Current gender identity: Male Physical Exam Narrative: EXAM NARRATIVE: The patient is actively eating a sandwich while of acute doing his intake evaluation. He made good eye contact and continue to request Suboxone and asked if he could smoke cigarettes. He would not answer additional questions at this time. Const: COMMON NORMALS: average body habitus and alert ORIENTATION/CONSCIOUSNESS: Yes oriented to person HENMT: COMMON NORMALS: normocephalic, Normal nasal mucous membranes and turbinates present and moist oral mucous membranes HEAD & SCALP: normocephalic NOSE: Normal nasal mucous membranes and turbinates present Eye: COMMON NORMALS: Equal, round and reactive pupils present and EOMs intact bilaterally PUPIL: Yes Equal, round and reactive pupils present Neck/C-Spine: COMMON NORMALS: full ROM and no JVD GENERAL: Yes normal visu al inspection Chest: COMMONS NORMALS: normal inspection of the chest Resp: COMMON NORMALS: normal respiratory effort and No retractions EFFORT & INSPECTION: Yes able to speak in complete sentences Cardio: COMMON NORMALS: no JVD, regular rate, regular rhythm and Peripheral pulses 2+ throughout RATE: regular rate RHYTHM: regular rhythm PERIPH ERAL PULSES: Peripheral pulses 2+ throughout GI: COMMON NORMALS: Soft to palpation and non-tender PALPATION: Yes Soft to palpation : COMMON NORMALS: Yes no CVA tenderness BLADDER/KIDNEY EXAM: Yes no CVA tenderness Back/Pelvis: COMMON NORMALS: no CVA tenderness, thoracic and lumbar spine normal to inspection and no thoracic nor lumbar tenderness Extremity: COMMON NORMALS: normal to inspection, full ROM and capillary refill normal Neuro: COMMON NORMALS: moves all extremities and no focal motor deficits SENSORIUM/ORIENTATION: Yes alert and Yes oriented to person Psych: APPEARANCE: Yes unkempt ATTITUDE: Yes evasive ACTIVITY/MOTOR BEHAVIOR: Yes appropriate eye contact and Yes restless SPEECH: Yes slurred Skin: COMMON NORMALS: no rashes or lesions noted, no wounds and turgor normal GENERAL SKIN EXAM: no rashes or lesions noted and turgor normal Course Reevaluation(s): Reevaluation #1: Patient continues to insist that he needs Suboxone however he is currently under the influence likely of the alcohol that he is recently concerned. We will continue to monitor him and make a determination once he is in a more sober state. Time: 19:34 Reevaluation #2: Patient is currently sleeping. He is on electroencephalographic technologist which shows him in normal sinus rhythm with otherwise stable vital signs. Go ahead and repeat a blood alcohol to ensure that level is not rising. Time: 22:18 Reevaluation #3: Alcohol level is still elevated but less so than previous however still elevated and indicative of acute ingestion just prior to his initial level this obtained and therefore he is not metabolized as much as 1 would expect over the past [address] Black who will reassess him few hours and make a disposition at that time. Time: 23:01 Consultations: Consultation #1: Discussed with Dr. Erwin regarding this patient's current presentation. He would prefer we allow him to metabolize his alcohol for a while longer in the emergency department at that point in time reassess him and determine whether further mental health evaluation is indicated at that time. He will await a return call regarding his condition. Time: 23:00 Vital Signs: Vital signs: Vital Signs Temperature 98 F 04/07/23 13:42 Pulse Rate 95 04/07/23 13:42 Respiratory Rate 16 04/07/23 13:42 Blood Pressure 148/94 04/07/23 13:42 Pulse Oximetry 97 04/07/23 13:42 Oxygen Delivery Me thod Room Air 04/07/23 13:42 Oxygen Flow Rate 3 04/06/23 21:56 MDM - Psych Medical Decision Making This patient returns to our emergency department for the second time today. Earlier he was here after taking a significant fentanyl dose which responded to Narcan. After very brief period of time in the emergency department the patient was adamant to leave the emergency department along with a request Suboxone which was denied. He would not endorse any suicidality or other lethality at that time and was allowed to leave the emergency department. He returned to the emergency department approximately 2 hours later along with a bottle of alcohol and smoking cigarettes in the emergency department. These were removed from his room and intake evaluation revealed he was obviously under the influence but able to carry on a conversation to include requesting Suboxone. Because of his return to the emergency department uncertain suicidally or other intentions (but certainly displaying self-destructive or perhaps manipulative behavior), it was felt that he would be best served by continued observation in the emergency department and then subsequently admitted to the mental health unit for further evaluation. Notable is that he had an elevated blood alcohol level of 267 mg percent. He did receive a Haldol injection in the emergency department to allow us to safely observe him and reassess him. We plan on repeating his blood alcohol level to ensure not rising unsafe level and then discussing with psychiatry regarding admission to [facility]. Differential Diagnosis Likely depression and drug-induced psychotic disorder Medical Records I reviewed the patient's medical records. Frequent evaluations in the emergency department for various mental health symptoms to include depression, suicidality, medication seeking. His last inpatient admission at this facility for mental health was in 2020. Lab Data I reviewed the patient's lab results. 04/06/23 19:26 04/06/23 19:[address] 04/07/23 02:01 IMPRESSION: No acute intracranial abnormality. Laboratory Results WBC 6.35 10^3/uL (3.29-11.43) 04/06/23 19: RBC 4.39 10^6/uL (3.85-5.65) 04/06/23 19: Hgb 13.40 g/dL (11.27-16.99) 04/06/23 19: Hct 39.7 % (37-53) 04/06/23 19: MCV 90.4 fl (82-101) 04/06/23 19: MCH 30.5 pg (27-33) 04/06/23 19: MCHC 33.8 g/dL (30-55) 04/06/23 19: RDW 13.9 % (12.1-15.1) 04/06/23 19: Plt Count 140 10^3/cmm (157-399) L 04/06/23: MPV 10.0 fL (7.4-10.4) 04/06/23 19: Neut % (Auto) 47.0 % 04/06/23 19: Lymph % (Auto) 38.9 % 04/06/23 19: [place] % (Auto) 9.4 % 04/06/23 19: Eos % (Auto) 3.6 % 04/06/23 19: Baso % (Auto) 0.9 % 04/06/23: Neut # (Auto) 2.98 10^3/uL (1.8-7.7) 04/06/23: Lymph # (Auto) 2.5 10^3/uL (0.8-4.8) 04/06/23: [place] # (Auto) 0.6 10^3/uL (0.2-0.9) 04/06/23: Eos # (Auto) 0.2 10^3/uL (0.0-0.8) 04/06/23: Baso # (Auto) 0.1 10^3/uL (0.0-0.1) 04/06/23 19: Nucleated RBC % (auto) 0 % 04/06/23: Nucleated RBCs # 0.0 /100WBC 04/06/23 19:26 Sodium 145 mmol/L (136-145) 04/06/23 19:26 Potassium 3.7 mmol/L (3.5-5.1) 04/06/23 19:26 Chloride 112 mmol/L (98-107) H 04/06/23 19:26 Carbon Dioxide 23 mmol/L (22-29) 04/06/23 19:26 Anion Gap 13.7 (5-19) 04/06/23 19:26 BUN 12 mg/dL (6-20) 04/06/23 19:26 Creatinine 1.1 mg/dL (0.7-1.2) 04/06/23 19:26 GFR Calculation 73.8 mL/min (90-130) L 04/06/23 19:26 Glucose 93 mg/dL (65-115) 04/06/23 19:26 Calculated Osmolality 299 mOsm/kg (285-295) H 04/06/23 19:26 Calcium 8.0 mg/dL (8.5-10.5) L 04/06/23 19:26 Total Bilirubin 0.2 mg/dL (0.15-1.2) 04/06/23 19:26 AST 19 U/L (0-40) 04/06/23 19:26 ALT 22 U/L (0-41) 04/06/23 19:26 Alkaline Phosphatase 97 U/L (40-130) 04/06/23 19:26 Total Protein 6.3 g/dL (6.6-8.7) L 04/06/23 19:26 Albumin 4.2 g/dL (3.5-5.2) 04/06/23 19:26 Globulin 2.1 g/dL (1.3-4.6) 04/06/23 19:26 Salicylates < 0.3 mg/dL (3-10) L 04/06/23 19:26 Acetaminophen < 5.0 ug/mL (10-30) L 04/06/23 19:26 Ethyl Alcohol 246 mg/dL (0-10) H 04/06/23 22:30 No radiology studies performed this visit Discharge Plan Discharge Patient Disposition: Admitted As Inpatient Admit Provider: Collin Francis Clinical Impression: Antisocial personality disorder, Depression, Opiate use, Alcohol intoxication Condition: Stable Coding Level of Care Code ED Electronic Court Recorder for Chg Fwd Documented by User: Mar Black MD 04/07/23 02:02 HPI - Psych General: Chief Complaint: Psychiatric Symptoms Stated Complaint: Fentanyl use, SI Time Seen by Provider: 04/06/23 19:03 PFSH ED PFSH: Medical History (Updated 04/07/23 @ 17:31 by Collin Francis MD) Alcoholism Anxiety Bipolar disorder Chronic back pain Depression GI bleed Hepatitis IBS (irritable bowel syndrome) Intermittent explosive disorder PTSD (post-traumatic stress disorder) Rectal bleed Seizure disorder Substance abuse Suicidal ideation Suicide attempt Surgical History History of back surgery Social History Smoking and tobacco status: current every day smoker smokeless tobacco Smokeless tobacco user: snuff Smokeless tobacco details: 1 can/2 weeks Quit status (tobacco): not considering quitting Second hand smoke exposure: No Current gender identity: Male Course Consultations: Consultation #2: Patient got up in the room and urinated on the floor and slipped in the urine and fell and hit his head onto the wall he is awake alert had no LOC but will CT his head. Time: 02:02 Vital Signs: Vital signs: Vital Signs Temperature 98 F 04/07/23 13:42 Pulse Rate 95 04/07/23 13:42 Respiratory Rate 16 04/07/23 13:42 Blood Pressure 148/94 04/07/23 13:42 Pulse Oximetry 97 04/07/23 13:42 Oxygen Delivery Me thod Room Air 04/07/23 13:42 Oxygen Flow Rate 3 04/06/23 21:56 MDM - Psych Lab Data 04/06/23 19:26 04/06/23 19:[address] 04/07/23 02:01 IMPRESSION: No acute intracranial abnormality. Laboratory Results WBC 6.35 10^3/uL (3.29-11.43) 04/06/23 19: RBC 4.39 10^6/uL (3.85-5.65) 04/06/23 19: Hgb 13.40 g/dL (11.27-16.99) 04/06/23 19: Hct 39.7 % (37-53) 04/06/23 19: MCV 90.4 fl (82-101) 04/06/23 19: MCH 30.5 pg (27-33) 04/06/23 19: MCHC 33.8 g/dL (30-55) 04/06/23 19: RDW 13.9 % (12.1-15.1) 04/06/23 19: Plt Count 140 10^3/cmm (157-399) L 04/06/23 19: MPV 10.0 fL (7.4-10.4) 04/06/23 19: Neut % (Auto) 47.0 % 04/06/23 19: Lymph % (Auto) 38.9 % 04/06/23 19: [place] % (Auto) 9.4 % 04/06/23 19: Eos % (Auto) 3.6 % 04/06/23 19: Baso % (Auto) 0.9 % 04/06/23: Neut # (Auto) 2.98 10^3/uL (1.8-7.7) 04/06/23: Lymph # (Auto) 2.5 10^3/uL (0.8-4.8) 04/06/23: [place] # (Auto) 0.6 10^3/uL (0.2-0.9) 04/06/23 19: Eos # (Auto) 0.2 10^3/uL (0.0-0.8) 04/06/23: Baso # (Auto) 0.1 10^3/uL (0.0-0.1) 04/06/23 19: Nucleated RBC % (auto) 0 % 04/06/23: Nucleated RBCs # 0.0 /100WBC 04/06/23 19: Sodium 145 mmol/L (136-145) 04/06/23 19:26 Potassium 3.7 mmol/L (3.5-5.1) 04/06/23 19:26 Chloride 112 mmol/L (98-107) H 04/06/23 19:26 Carbon Dioxide 23 mmol/L (22-29) 04/06/23 19:26 Anion Gap 13.7 (5-19) 04/06/23 19:26 BUN 12 mg/dL (6-20) 04/06/23 19:26 Creatinine 1.1 mg/dL (0.7-1.2) 04/06/23 19:26 GFR Calculation 73.8 mL/min (90-130) L 04/06/23 19:26 Glucose 93 mg/dL (65-115) 04/06/23 19:26 Calculated Osmolality 299 mOsm/kg (285-295) H 04/06/23 19:26 Calcium 8.0 mg/dL (8.5-10.5) L 04/06/23 19:26 Total Bilirubin 0.2 mg/dL (0.15-1.2) 04/06/23 19:26 AST 19 U/L (0-40) 04/06/23 19:26 ALT 22 U/L (0-41) 04/06/23 19:26 Alkaline Phosphatase 97 U/L (40-130) 04/06/23 19:26 Total Protein 6.3 g/dL (6.6-8.7) L 04/06/23 19:26 Albumin 4.2 g/dL (3.5-5.2) 04/06/23 19:26 Globulin 2.1 g/dL (1.3-4.6) 04/06/23 19:26 Salicylates < 0.3 mg/dL (3-10) L 04/06/23 19:26 Acetaminophen < 5.0 ug/mL (10-30) L 04/06/23 19:26 Ethyl Alcohol 246 mg/dL (0-10) H 04/06/23 22:30 Discharge Plan Discharge Patient Disposition: Admitted As Inpatient Admit Provider: Collin Francis Clinical Impression: Antisocial personality disorder, Depression, Opiate use, Alcohol intoxication Condition: Stable Coding Level of Care Code ED Electronic Court Recorder for Chg Fwd Documented by User: Aris Galvez DO 04/07/23 17:51 HPI - Psych General: Chief Complaint: Psychiatric Symptoms Stated Complaint: Fentanyl use, SI Time Seen by Provider: 04/06/23 19:03 PFSH ED PFSH: Medical History (Updated 04/07/23 @ 17:31 by Collin Francis MD) Alcoholism Anxiety Bipolar disorder Chronic back pain Depression GI bleed Hepatitis IBS (irritable bowel syndrome) Intermittent explosive disorder PTSD (post-traumatic stress disorder) Rectal bleed Seizure disorder Substance abuse Suicidal ideation Suicide attempt Surgical History History of back surgery Social History Smoking and tobacco status: current every day smoker smokeless tobacco Smokeless tobacco user: snuff Smokeless tobacco details: 1 can/2 weeks Quit status (tobacco): not considering quitting Second hand smoke exposure: No Current gender identity: Male Course Vital Signs: Vital signs: Vital Signs Temperature 98 F 04/07/23 13:42 Pulse Rate 95 04/07/23 13:42 Respiratory Rate 16 04/07/23 13:42 Blood Pressure 148/94 04/07/23 13:42 Pulse Oximetry 97 04/07/23 13:42 Oxygen Delivery Me thod Room Air 04/07/23 13:42 Oxygen Flow Rate 3 04/06/23 21:56 MDM - Psych Medical Decision Making This patient returns to our emergency department for the second time today. Earlier he was here after taking a significant fentanyl dose which responded to Narcan. After very brief period of time in the emergency department the patient was adamant to leave the emergency department along with a request Suboxone which was denied. He would not endorse any suicidality or other lethality at that time and was allowed to leave the emergency department. He returned to the emergency department approximately 2 hours later along with a bottle of alcohol and smoking cigarettes in the emergency department. These were removed from his room and intake evaluation revealed he was obviously under the influence but able to carry on a conversation to include requesting Suboxone. Because of his return to the emergency department uncertain suicidally or other intentions (but certainly displaying self-destructive or perhaps manipulative behavior), it was felt that he would be best served by continued observation in the emergency department and then subsequently admitted to the mental health unit for further evaluation. Notable is that he had an elevated blood alcohol level of 267 mg percent. He did receive a Haldol injection in the emergency department to allow us to safely observe him and reassess him. We plan on repeating his blood alcohol level to ensure not rising unsafe level and then discussing with psychiatry regarding admission to [facility]. Patient signed out to me at change of shift. Dr. Black had talked to psychiatry through the evening there is will see him in the morning. I later talked to Dr. Edwards he recommends that we admit the patient patient admitted for suicidal ideation 96-hour hold completed. Lab Data 04/06/23 19:26 04/06/23 19:[address] 04/07/23 02:01 IMPRESSION: No acute intracranial abnormality. Laboratory Results WBC 6.35 10^3/uL (3.29-11.43) 04/06/23 19: RBC 4.39 10^6/uL (3.85-5.65) 04/06/23 19: Hgb 13.40 g/dL (11.27-16.99) 04/06/23 19: Hct 39.7 % (37-53) 04/06/23 19: MCV 90.4 fl (82-101) 04/06/23 19: MCH 30.5 pg (27-33) 04/06/23 19: MCHC 33.8 g/dL (30-55) 04/06/23 19: RDW 13.9 % (12.1-15.1) 04/06/23 19: Plt Count 140 10^3/cmm (157-399) L 04/06/23 19: MPV 10.0 fL (7.4-10.4) 04/06/23 19: Neut % (Auto) 47.0 % 04/06/23 19: Lymph % (Auto) 38.9 % 04/06/23 19: [place] % (Auto) 9.4 % 04/06/23 19: Eos % (Auto) 3.6 % 09/29/23 19:26 Baso % (Auto) 0.9 % 04/06/23 19:26 Neut # (Auto) 2.98 10^3/uL (1.8-7.7) 04/06/23 19: Lymph # (Auto) 2.5 10^3/uL (0.8-4.8) 04/06/23 19:26 [place] # (Auto) 0.6 10^3/uL (0.2-0.9) 04/06/23 19:26 Eos # (Auto) 0.2 10^3/uL (0.0-0.8) 04/06/23 19: Baso # (Auto) 0.1 10^3/uL (0.0-0.1) 04/06/23 19:26 Nucleated RBC % (auto) 0 % 04/06/23 19: Nucleated RBCs # 0.0 /100WBC 04/06/23 19:26 Sodium 145 mmol/L (136-145) 04/06/23 19:26 Potassium 3.7 mmol/L (3.5-5.1) 04/06/23 19:26 Chloride 112 mmol/L (98-107) H 04/06/23 19:26 Carbon Dioxide 23 mmol/L (22-29) 04/06/23 19:26 Anion Gap 13.7 (5-19) 04/06/23 19:26 BUN 12 mg/dL (6-20) 04/06/23 19:26 Creatinine 1.1 mg/dL (0.7-1.2) 04/06/23 19:26 GFR Calculation 73.8 mL/min (90-130) L 04/06/23 19:26 Glucose 93 mg/dL (65-115) 04/06/23 19:26 Calculated Osmolality 299 mOsm/kg (285-295) H 04/06/23 19:26 Calcium 8.0 mg/dL (8.5-10.5) L 04/06/23 19:26 Total Bilirubin 0.2 mg/dL (0.15-1.2) 04/06/23 19:26 AST 19 U/L (0-40) 04/06/23 19:26 ALT 22 U/L (0-41) 04/06/23 19:26 Alkaline Phosphatase 97 U/L (40-130) 04/06/23 19:26 Total Protein 6.3 g/dL (6.6-8.7) L 04/06/23 19:26 Albumin 4.2 g/dL (3.5-5.2) 04/06/23 19:26 Globulin 2.1 g/dL (1.3-4.6) 04/06/23 19:26 Salicylates < 0.3 mg/dL (3-10) L 04/06/23 19:26 Acetaminophen < 5.0 ug/mL (10-30) L 04/06/23 19:26 Ethyl Alcohol 246 mg/dL (0-10) H 04/06/23 22:30 Discharge Plan Discharge Patient Disposition: Admitted As Inpatient Admit Provider: Collin Francis Clinical Impression: Antisocial personality disorder, Depression, Opiate use, Alcohol intoxication Condition: Stable Coding Level of Care Code ED Electronic Court Recorder for Edmond Hwang
[2023-04-06] MEDS: haloperidol inj 5 mg/mL INJ 1 mL IM (19:23)
[2023-04-06 19:33] LABS: Basophils # 0.1 10^3/uL (0.0-0.1); Basophils % 0.9 %; Eosinophils # 0.2 10^3/uL (0.0-0.8); Eosinophils % 3.6 %; Hematocrit 39.7 % (37-53); Lymphocytes # 2.5 10^3/uL (0.8-4.8); Lymphocytes % 38.9 %; Mean Corpuscular HGB Conc 33.8 g/dL (30-55); Mean Corpuscular Hemoglobin 30.5 pg (27-33); Mean Corpuscular Volume 90.4 fl (82-101); Monocytes # 0.6 10^3/uL (0.2-0.9); Monocytes % 9.4 %; Neutrophils # 2.98 10^3/uL (1.8-7.7); Nucleated Red Blood Cells % 0 %; Platelet Count 140 10^3/cmm (157-399); Red Blood Count 4.39 10^6/uL (3.85-5.65); Red Cell Distribution Width 13.9 % (12.1-15.1); White Blood Count 6.35 10^3/uL (3.29-11.43)
[2023-04-06 19:55] LABS: Alanine Aminotransferase 22 U/L (0-41); Albumin Level 4.2 g/dL (3.5-5.2); Alcohol Level 267 mg/dL (0-10); Alkaline Phosphatase 97 U/L (40-130); Anion Gap 13.7 (5-19); Aspartate Amino Transferase 19 U/L (0-40); Blood Urea Nitrogen 12 mg/dL (6-20); Carbon Dioxide 23 mmol/L (22-29); Chloride 112 mmol/L (98-107); Globulin 2.1 g/dL (1.3-4.6); Glomerular Filtration Rate 73.8 mL/min (90-130); Glucose 93 mg/dL (65-115); Osmolality Calculated 299 mOsm/kg (285-295); Potassium 3.7 mmol/L (3.5-5.1); Sodium 145 mmol/L (136-145); Total Bilirubin 0.2 mg/dL (0.15-1.2); Total Protein 6.3 g/dL (6.6-8.7)
--- NOTE | 2023-04-06 20:02 | PC.NURSE ---
Uncooperative. Patient upon admission to ED was uncooperative with security. Pulled monitoring equipment off himself several times. Patient was able to be calmed and redirected however would attempt to leave a short time later. Patient unstable when standing and potential harm to self in current condition.
[2023-04-06 20:07] LABS: Acetaminophen < 5.0 ug/mL (10-30); Salicylate < 0.3 mg/dL (3-10)
[2023-04-06 20:12] VITALS: BP 120/89; PULSE 98; RESP 20; O2SAT 89
--- NOTE | 2023-04-06 20:25 | PC.NURSE ---
oxygen removal. Patient continuously removes oxygen when I leave room. Oxygen sats in high 80s when sleeping. Attempting to continue to get patient to keep oxygen applied.
[2023-04-06 21:21] VITALS: BP 146/98; PULSE 92; RESP 14; O2SAT 97
[2023-04-06 21:56] VITALS: BP 158/109; PULSE 88; RESP 12; O2SAT 97
[2023-04-06 22:51] LABS: Alcohol Level 246 mg/dL (0-10)
[2023-04-06 23:13] VITALS: BP 126/92; PULSE 87; RESP 21; O2SAT 100
[2023-04-06 23:42] VITALS: BP 146/87; PULSE 86; RESP 15; O2SAT 90
--- NOTE | 2023-04-07 02:01 | CTR_ITS ---
PROCEDURE INFORMATION: Exam: CT Head Without Contrast Exam date and time: 04/07/2023 2:14 AM Age: 42 years old Clinical indication: Injury or trauma; Fall; Blunt trauma (contusions or hematomas); Without loss of consciousness TECHNIQUE: Imaging protocol: Computed tomography of the head without contrast. Radiation optimization: All CT scans at this facility use at least one of these dose optimization techniques: automated exposure control; mA and/or kV adjustment per patient size (includes targeted exams where dose is matched to clinical indication); or iterative reconstruction. REPORTING DATA: Count of CT and Cardiac NM exams in prior 12 months: This patient has received 0 known CTs and 0 known cardiac nuclear medicine studies in the 12 months prior to the current study. COMPARISON: CT head wo con* [id number] 11/19/2021 7:30 PM RADIATION DOSE METRICS: Total DLP (mGy-cm): 1119.48 FINDINGS: Brain: No focal hemorrhage or midline shift is identified. Cerebral ventricles: No ventriculomegaly or evidence of acute hydrocephalus. There is a small posterior fossa markell cisterna magna or arachnoid cyst noted. Paranasal sinuses: The partially assessed sinuses are grossly clear. Mastoid air cells: Visualized mastoid air cells are well aerated. Bones/joints: No displaced skull fracture is noted. Soft tissues: Unremarkable. CT/CT head wo con* [id number] IMPRESSION: No acute intracranial abnormality.
--- NOTE | 2023-04-07 02:11 | PC.NURSE ---
Patient fall. I was informed by the sitter that she had gotten a urinal for the patient and that he was having trouble standing. I immediately went to patient room to find him standing at end of bed and wavering back and forth. Patient had his pants down and urinal in front of him. There was a large amount of urine in bed and on the floor. Patient currently urinating and having difficulty getting urine into urinal. I was keeping ahold of him during this time and attempting to convince patient to get back in bed but patient would not sit in bed. I grabbed the gloves the sitter had brought to me and at that time the patient leaned forward and feet slipped on the urine soaked floor. Patient then tried to stand up and I tried to convince patient to sit on floor until we could get ready for him to safely get to bed. Patient did not listen and continued to stand up. Patient was eventually able to be convinced to sit in chair. Patient, bed, and room were cleaned. Physician informed of incident.
--- NOTE | 2023-04-07 06:38 | PC.NURSE ---
96 Hour Involuntary Hold Rights have been presented to patient and a copy of the same has been given to him. Patient acknowledges that he understands Rights. Security [employer] were present in the room at the time of presentation of Rights.
[2023-04-07] MEDS: nicotine 21 mg Patch 1 PATCH TRANSDERMA (10:10)
[2023-04-07 12:27] VITALS: BP 148/94; PULSE 95; RESP 16; TEMP 36.6; O2SAT 97
--- NOTE | 2023-04-07 13:20 | PC.NURSE ---
PT CAME INTO ER PRIOR TO THIS FOR FENTANYL OVERDOSE. PT STATES THAT HE HAS A REALLY BAD DRUG PROBLEM AND NEEDS HELP. PT ADMITTED TO USE OF HEROIN, FENTANYL, AND PREVIOUSLY USED OXYCOTIN. PT DENIES SI OR HI.
[2023-04-07] MEDS: multivitamin therapeutic Tablet 1 TAB PO (13:27)
[2023-04-07] MEDS: thiamine 100 mg Tablet PO (13:27)
[2023-04-07] MEDS: folic acid 1 mg Tablet PO (13:27)
[2023-04-07 13:42] VITALS: BP 148/94; PULSE 95; RESP 16; TEMP 36.6; O2SAT 97
[2023-04-07] MEDS: ondansetron 4 MG Tablet PO ×2 (14:33→19:56)
[2023-04-07] MEDS: buprenorphine-naloxone 4-1 mg Film 2 EACH SUBLINGUAL ×2 (14:51→18:09)
--- NOTE | 2023-04-07 17:15 | P.NPUHP_ITS ---
Providers/Chief Complaint Admitting Physician: Collin Francis MD Primary Care Provider: Akil Ordoñez Chief Complaint: Fentanyl use, SI HPI NPU History of Present Illness Kyle Cartwright is a 42 year old male With a previous history of opiate dependence benzodiazepine dependence alcohol dependence and PTSD admitted after he had endorsed suicidal ideation. He had reported that he was having constant problems with managing his addiction to fentanyl as he had stated that he was using fentanyl patches in order to get high. He reports that he is currently in opiate withdrawal and reported that he was uncertain as to whether he would be able to survive without treatment. He endorses depressed mood. He reports some feelings of hopelessness. He reports difficulties with concentration. He had reported continued cravings for opiates. He had reported a past history of frequent mood swings and a history of trauma stemming from having witnessed his having killed herself 12 years ago. He reports having reexperiencing phenomenon regarding this and reports having some nightmares. He had reported previously having used alcohol but states that he is not using significantly at this time. He had reported that he has not had any recent seizures since stopping his use of alcohol and is no longer taking Keppra. The patient had reported continued use of opiates despite adverse consequences. He had reported an increase in tolerance initially but now reports that he has been attempting to cut out fentanyl but has been having severe withdrawal symptoms with dysphoria and severe depression. Patient had endorsed alcohol use during his [facility] recent admission here. The patient's blood alcohol level was 246 on admission. Inpatient psychiatric history: He had reported a past history of multiple inpatient hospitalizations but none recently. Outpatient psychiatric history: He reports that he is previously received outpatient substance abuse treatment under Dr. Joyner through the [facility] but reports that his medication management is currently under Dr. Zaidi his primary care physician. Current medications: Seroquel 600 mg at night, clonidine 0.1 mg in the morning, allergies: Codeine, Toradol, lidocaine Medical history: History of hepatitis, irritable bowel syndrome, rectal bleeding, chronic back pain, GI bleed, Surgical history: history of reported back surgery Family psychiatric history: Unknown Drug and Alcohol hx: he had reported history of inpatient substance abuse treatment in [place] in [facility] in the past. He had reported having a significant history of alcohol abuse as well as a history of opiate abuse for the past 12 years. Social history: Patient reports that he was raised in [facility] and had attended college. He reports that his mother had raised him and his dad had been killed in [place] while serving in the [employer] as a [place]. He currently lives in [place] and is as his had completed suicide in 2011. He has 2 adult boys who live out of the home ages 18 and 23. He had reported trauma from having witnessed the of his . 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 Meds NPU Home Medications Medication Instructions Recorded Confirmed Last Taken Type acetaminophen 500 mg tablet 1,000 mg PO Q6H PRN Pain 10/05/22 04/07/23 Unknown History buprenorphine 8 mg-naloxone 2 mg 1 tab sublingual BID 10/05/22 04/07/23 2 Weeks Ago History sublingual tablet ~09/21/22 see pharmacy comment clonidine HCl 0.1 mg tablet 0.1 mg PO QAM #30 tabs 10/05/22 04/07/23 Unknown Rx quetiapine 300 mg tablet (Seroquel) 600 mg PO BEDTIME 30 days #60 tabs 10/05/22 04/07/23 Unknown Rx Allergies Allergy/AdvReac Type Severity Reaction Status Date / Time codeine Allergy Unknown Verified 11/19/21 18:16 ketorolac [From Toradol] Allergy ALGY-Hives Verified 12/17/20 21:08 lidocaine Allergy ALGY-Hives Verified 12/17/20 21:08 PFSH NPU PFSH: Medical History (Updated 04/07/23 @ 17:31 by Collin Francis MD) Alcoholism Anxiety Bipolar disorder Chronic back pain Depression GI bleed Hepatitis IBS (irritable bowel syndrome) Intermittent explosive disorder PTSD (post-traumatic stress disorder) Rectal bleed Seizure disorder Substance abuse Suicidal ideation Suicide attempt Surgical History History of back surgery Social History Smoking and tobacco status: current every day smoker smokeless tobacco Smokeless tobacco user: snuff Smokeless tobacco details: 1 can/2 weeks Quit status (tobacco): not considering quitting Second hand smoke exposure: No Current gender identity: Male Mental Status Exam MSE Comments: overweight white male who appeared his stated age. He had a disheveled appearance with poor hygiene. His gait was normal. He appeared somewhat dysphoric with mild psychomotor retardation appreciated. His mood was described as terrible. His affect was restricted in range and mood congruent. His thought process was linear logical and goal-directed. His thought content showed no evidence of active homicidal or suicidal ideation. He did not appear to be responding to internal stimuli. There is no evidence of delusional thinking. His attention span appeared fair his speech was normal in regards to rate rhythm and prosody. His recent and remote memory were grossly intact. His insight was fair. His judgment was poor. His impulse control appeared limited. Vitals/I&O/Wt Last Vital Signs Temp 98 F 04/07/23 13:42 Pulse 95 04/07/23 13:42 Resp 16 04/07/23 13:42 BP 148/94 04/07/23 13:42 Pulse Ox 97 04/07/23 13:42 O2 Del Method Room Air 04/07/23 13:42 O2 Flow Rate 3 04/06/23 21:56 Weight last 48 hrs Weight 113.398 kg Data NPU 04/06/23 19:26 04/06/23 19:26 A&P Assessment and plan (1) Bipolar depression: (2) Opioid use disorder, moderate, dependence: (3) Alcohol abuse: Plan 42-year-old male with a history of bipolar disorder along with polysubstance abuse admitted with suicidal ideation with patient having recently taken a significant overdose on fentanyl. He had also had elevated alcohol level and would likely benefit from acute inpatient stay to monitor for potential alcohol withdrawal while beginning treatment for opiate addiction. 1. ?Encourage individual, group and milieu therapy. 2. Recommend sober living treatment at the highest level of care to which the patient is willing to commit. 3. Continue q-15 minute checks for safety 4. CIWA protocol. 5. Start suboxone 8mg/2mg SL BID. 6. Restart Seroquel, and clonidine as prescribed. Involuntary Hold Information 96 Hour Hold: 96 Hour Involuntary Admission: Yes 96 Hour Hold Ending Date: 04/13/23 96 Hour Hold Ending Time: 00:01 Attestations NPU Medical Necessity Statement*: Inpatient hospitalization is medically necessary and deemed to be the ?clinically appropriate intervention ?at this time.? We will monitor/initiate medications and make changes as indicated.? She will be in the hospital for over 2 midnights.? His Likely length of stay 2-3 days. Coding Level of Care Code Acute Code for [facility] Fwd Diagnoses Bipolar depression F31.9 Opioid use disorder, moderate, dependence F11.20 Alcohol abuse F10.10
[2023-04-07 20:00] VITALS: BP 159/84; PULSE 78; RESP 14; TEMP 36.7; O2SAT 94
[2023-04-07] MEDS: quetiapine 300 mg Tablet 600 MG PO (20:29)
[2023-04-07] MEDS: nicotine 2 mg Gum BUCCAL (20:31)
--- NOTE | 2023-04-07 20:40 | PC.NURSE ---
ASSESSMENT COMPLETED IN ROOM. PT DENIES PAIN, DENIES SI/HI AND AVH AT THIS TIME. PT STATES THE SUBOXONE THAT THE STARTED HIM ON IS REALLY HELPING AND I FEEL LIKE I MAY BE ABLE TO REALLY STAY CLEAN THIS TIME. EDUCATION PROVIDED ON NEGATIVE EFFECTS OF ADDICTION AND POSSIBILITY OF FROM OVERDOSE. PT WAS VERY TEARFUL STATING THAT MY IN 2011 FROM A FENTANYL OVERDOSE, THOSE TWO TEARS I CRIED FELT LIKE A MOUNTAIN OF GRIEF OFF MY SHOULDERS. SUPPORT WAS VOICED. ALL QUESTIONS WERE ANSWERED. REVIEWED MEDICATIONS AND TIMES OF SUBOXONE. PT VERBALIZED UNDERSTANDING.
[2023-04-08 06:00] VITALS: BP 141/78; PULSE 82; RESP 15; TEMP 37.1; O2SAT 90; BMI 26.2
[2023-04-08] MEDS: multivitamin therapeutic Tablet 1 TAB PO (08:30)
[2023-04-08] MEDS: buprenorphine-naloxone 4-1 mg Film 2 EACH SUBLINGUAL ×2 (08:30→17:53)
[2023-04-08] MEDS: folic acid 1 mg Tablet PO (08:30)
[2023-04-08] MEDS: thiamine 100 mg Tablet PO (08:30)
[2023-04-08] MEDS: nicotine 2 mg Gum BUCCAL ×3 (12:50→20:29)
[2023-04-08 14:00] VITALS: BP 138/90; PULSE 88; RESP 18; TEMP 36.2; O2SAT 97
--- NOTE | 2023-04-08 16:19 | W.PM.NPUPNS ---
Subjective NPU Medications: Medication Review Details: 42-year-old white male with a history of alcohol dependence and opiate dependence currently on Suboxone and reporting improved symptoms. He also had a previous history of PTSD and bipolar disorder. He reported no side effects from his Seroquel or clonidine. He had reported that he was willing to continue the Suboxone on an outpatient basis and was willing to get help for his addiction. He had reported adequate sleep and reported feeling significantly better with his medication regimen. Mental Status Exam MSE Comments: overweight white male who appeared his stated age. His hygiene was improving. His gait was normal. He appeared in less distress today with only mild psychomotor retardation appreciated. His mood was described as better. His affect was less restricted in range and mood incongruent. His thought process was linear logical and goal-directed. His thought content showed no evidence of active homicidal or suicidal ideation. He did not appear to be responding to internal stimuli. There is no evidence of delusional thinking. His attention span appeared fair. His speech was normal in regards to rate rhythm and prosody. His recent and remote memory were grossly intact. His insight was improving. His judgment was fair. His impulse control appeared limited. Vitals/I&O/Wt Last Vital Signs Temp 97.2 F L 04/08/23 14:00 Pulse 88 04/08/23 14:00 Resp 18 04/08/23 14:00 BP 138/90 04/08/23 14:00 Pulse Ox 97 04/08/23 14:00 O2 Del Method Room Air 04/08/23 14:00 O2 Flow Rate 3 04/06/23 21:56 Weight last 48 hrs Weight 102.965 kg Weight 102.965 kg Weight 113.398 kg Data NPU 04/06/23 19:26 04/06/23 19:26 A&P Assessment and plan (1) Bipolar depression: (2) Opioid use disorder, moderate, dependence: (3) Alcohol abuse: Plan 42-year-old male with a history of bipolar disorder along with polysubstance abuse admitted with suicidal ideation with patient having recently taken a significant overdose on fentanyl. He had also had elevated alcohol level and would likely benefit from acute inpatient stay to monitor for potential alcohol withdrawal while beginning treatment for opiate addiction. 1. ?Encourage individual, group and milieu therapy. 2. Recommend sober living treatment at the highest level of care to which the patient is willing to commit. 3. Continue q-15 minute checks for safety 4. CIWA protocol. 5. Continue suboxone 8mg/2mg SL BID. 6. Continue Seroquel, and clonidine as prescribed. Involuntary Hold Information 96 Hour Hold: 96 Hour Involuntary Admission: Yes 96 Hour Hold Ending Date: 04/13/23 96 Hour Hold Ending Time: 00:01 Attestations NPU Medical Necessity Statement*: Inpatient hospitalization is medically necessary and deemed to be the ?clinically appropriate intervention ?at this time.? We will monitor/initiate medications and make changes as indicated.? His likely length of stay 1-2 days. Coding Level of Care Code Acute Code for [facility] Fwd Diagnoses Bipolar depression F31.9 Opioid use disorder, moderate, dependence F11.20 Alcohol abuse F10.10
[2023-04-08] MEDS: calcium carbonate 500 mg Chew Tablet 1000 MG PO (17:53)
[2023-04-08] MEDS: neomycin-poly-bacitracin oint 28 gm 1 APPLIC TOPICAL (18:29)
[2023-04-08 19:41] VITALS: BP 130/81; PULSE 90; RESP 14; TEMP 36.6; O2SAT 94
--- NOTE | 2023-04-08 20:21 | PC.NURSE ---
ASSESSMENT COMPLETED IN ROOM. PT DENIES SI/HI AND AVH AT THIS TIME. DENIES PAIN. REPORTS HE IS FEELING GREAT WITH THE SUBOXONE, IT HAS REALLY HELPED. PT REQUESTS DOUBLE PORTIONS WITH MEALS. ORDER RECEIVED AND PLACED IN DIETARY ORDER. SUPPORT VOICED. PT CURRENTLY IN SHOWER.,
[2023-04-08] MEDS: quetiapine 300 mg Tablet 600 MG PO (20:29)
[2023-04-09] MEDS: hyDROXYzine 25 mg Capsule 50 MG PO (01:05)
--- NOTE | 2023-04-09 01:22 | PC.NURSE ---
PT UP AT [facility] MULTIPLE TIMES THROUGH OUT THE NIGHT TO GET SNACKS, DRINKS AND MEDICATIONS. PT STATES HE CAN NOT SLEEP AND I THINK I NEED MORE MEDICINE SO I CAN SLEEP. PT WAS EDUCATED THAT THERE IS TRAZODONE 50 MG BUT AFTER TAKING 600 MG OF SEROQUEL EARLIER IT MAY NOT BE EFFECTIVE. PT THEN REQUESTED THIS RN GIVE HIM 100 MG OF BENADRYL. PT WAS EDUCATED AGAIN THAT RN WAS NOT ABLE TO GIVE THAT MUCH BENADRYL. VISTARIL WAS OFFERED AND PT ACCEPTED. PT WAS GIVEN VISTARIL 50 MG FOR ANXIETY. PT WAS GIVEN MULTIPLE ITEMS TO EAT AND WAS GIVEN ANOTHER DRINK.
[2023-04-09 06:00] VITALS: BP 144/72; PULSE 92; RESP 16; TEMP 36.9; O2SAT 93
[2023-04-09] MEDS: nicotine 2 mg Gum BUCCAL ×3 (06:28→15:05)
[2023-04-09] MEDS: buprenorphine-naloxone 4-1 mg Film 2 EACH SUBLINGUAL (08:22)
[2023-04-09] MEDS: thiamine 100 mg Tablet PO (08:22)
[2023-04-09] MEDS: multivitamin therapeutic Tablet 1 TAB PO (08:22)
[2023-04-09] MEDS: folic acid 1 mg Tablet PO (08:22)
[2023-04-09 13:35] VITALS: BP 134/91; PULSE 85; RESP 18; TEMP 36.6; O2SAT 95
[2023-04-09 14:33] VITALS: BP 134/91; PULSE 85; RESP 18; TEMP 36.6; O2SAT 95
--- NOTE | 2023-04-09 15:13 | P.NPUDS_ITS ---
Diagnoses at Discharge Discharge Diagnosis (1) Bipolar depression: Status: Acute (2) Opioid use disorder, moderate, dependence: Status: Acute (3) Alcohol abuse: Status: Acute Reason for Visit Reason for Visit: Fentanyl use, SI Brief History: History of Present Illness Kyle Cartwright is a 42 year old male ? With a previous history of opiate dependence benzodiazepine dependence alcohol dependence and PTSD admitted after he had endorsed suicidal ideation.? He had reported that he was having constant problems with managing his addiction to fentanyl as he had stated that he was using fentanyl patches in order to get high.? He reports that he is currently in opiate withdrawal and reported that he was uncertain as to whether he would be able to survive without treatment.? He endorses depressed mood.? He reports some feelings of hopelessness.? He reports difficulties with concentration.? He had reported continued cravings for opiates.? He had reported a past history of frequent mood swings and a history of trauma stemming from having witnessed his having killed herself 12 years ago.? He reports having reexperiencing phenomenon regarding this and reports having some nightmares.? He had reported previously having used alcohol but states that he is not using significantly at this time.? He had reported that he has not had any recent seizures since stopping his use of alcohol and is no longer taking Keppra.? The patient had reported continued use of opiates despite adverse consequences.? He had reported an increase in tolerance initially but now reports that he has been attempting to cut out fentanyl but has been having severe withdrawal symptoms with dysphoria and severe depression.? Patient had endorsed alcohol use during his most recent admission here.? The patient's blood alcohol level was 246 on admission. ? Inpatient psychiatric history: He had reported a past history of multiple inpatient hospitalizations but none recently. ? Outpatient psychiatric history: He reports that he is previously received outpatient substance abuse treatment under Dr. Joyner through the [facility] but reports that his medication management is currently under Dr. Zaidi his primary care physician. ? Current medications: Seroquel 600 mg at night, clonidine 0.1 mg in the morning, ?allergies: Codeine, Toradol, lidocaine ?Medical history: History of hepatitis, irritable bowel syndrome, rectal bleeding, chronic back pain, GI bleed, Surgical history: ? history of reported back surgery ?Family psychiatric history: Unknown Drug and Alcohol hx:? he had reported history of inpatient substance abuse treatment in [facility] [place] in the past.? He had reported having a significant history of alcohol abuse as well as a history of opiate abuse for the past 12 years. ? Social history: Patient reports that he was raised in [facility] and had attended college.? He reports that his mother had raised him and his dad had been killed in [place] Storm while serving in the [employer] as a [place].? He currently lives in [place] and is as his had completed suicide in 2012.? He has 2 adult boys who live out of the home ages 18 and 23.? He had reported trauma from having witnessed the of his .? 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 Hospital Course Hospital Course During the hospitalization, the patient had routine laboratory studies which were within normal limits except for a few outliers.? Additionally, there was a general medical evaluation which was also within normal limits and revealed no new acute processes.? At the time of discharge, lethality was denied and psychosis was resolving.? Mood and anxiety were well managed.? The patient endorsed a plan to avoid all drugs of abuse and follow up with the aftercare recommendations of the treatment team.? The patient was evaluated and deemed to be absent credible lethality and had achieved the maximum benefit from an inpatient hospitalization, and so was discharged.?He reported relief of opiate withdrawal symptoms on suboxone at 16mg/2mg daily. Involuntary Hold Information 96 Hour Hold: 96 Hour Involuntary Admission: Yes 96 Hour Hold Ending Date: 04/13/23 96 Hour Hold Ending Time: 00:01 Mental Status Exam MSE Comments: overweight white male who appeared his stated age. His hygiene was improving. His gait was normal. He appeared in no acute distress today with only mild psychomotor retardation appreciated. His mood was described as better. His affect was euthymic. His thought process was linear, logical and goal-directed. His thought content showed no evidence of active homicidal or suicidal ideation. He did not appear to be responding to internal stimuli. Th ere is no evidence of delusional thinking. His attention span appeared fair. His speech was normal in regards to rate rhythm and prosody. His recent and remote memory were grossly intact. His insight was improving. His judgment was fair. His impulse control appeared limited. Discharge Data Studies Completed and Pending: Completed Studies During Hospitalization Category Date Time Status CT head wo con* 2 [id number] Stat Cat Scan 04/07/23 02:01 Completed Radiology Impressions Head CT 04/07/23 02:01 IMPRESSION: No acute intracranial abnormality. Laboratory Results WBC 6.35 10^3/uL (3.2 9-11.43) 04/06/23 19: RBC 4.39 10^6/uL (3.8 5-5.65) 04/06/23 19: Hgb 13.40 g/dL (11.27 -16.99) 04/06/23 19: Hct 39.7 % (37-53) 04/06/23 19: MCV 90.4 fl (82-101) 04/06/23 19: MCH 30.5 pg (27-33) 04/06/23 19: MCHC 33.8 g/dL (30-55) 04/06/23 19: RDW 13.9 % (12.1-15.1 ) 04/06/23 19: Plt Count 140 10^3/cmm (157 -399) L 04/06/23 19: MPV 10.0 fL (7.4-10.4 ) 04/06/23 19: Neut % (Auto) 47.0 % 04/06/23 19: Lymph % (Auto) 38.9 % 04/06/23 19: [place] % (Auto) 9.4 % 04/06/23 19: Eos % (Auto) 3.6 % 04/06/23: Baso % (Auto) 0.9 % 04/06/23: Neut # (Auto) 2.98 10^3/uL (1.8 -7.7) 04/06/23 19: Lymph # (Auto) 2.5 10^3/uL (0.8- 4.8) 04/06/23: [place] # (Auto) 0.6 10^3/uL (0.2- 0.9) 04/06/23 19: Eos # (Auto) 0.2 10^3/uL (0.0- 0.8) 04/06/23 19: Baso # (Auto) 0.1 10^3/uL (0.0- 0.1) 04/06/23:26 Nucleated RBC % (a uto) 0 % 04/06/23 19:26 Nucleated RBCs # 0.0 /100WBC 04/06/23 19:26 Sodium 145 mmol/L (136-1 45) 04/06/23 19:26 Potassium 3.7 mmol/L (3.5-5 .1) 04/06/23 19:26 Chloride 112 mmol/L (98-10 7) H 04/06/23 19:26 Carbon Dioxide 23 mmol/L (22-29) 04/06/23 19:26 Anion Gap 13.7 (5-19) 04/06/23 19:26 BUN 12 mg/dL (6-20) 04/06/23 19:26 Creatinine 1.1 mg/dL (0.7-1. 2) 04/06/23 19:26 GFR Calculation 73.8 mL/min (90-1 30) L 04/06/23 19:26 Glucose 93 mg/dL (65-115) 04/06/23 19:26 Calculated Osmolal ity 299 mOsm/kg (285- 295) H 04/06/23 19:26 Calcium 8.0 mg/dL (8.5-10 .5) L 04/06/23 19:26 Total Bilirubin 0.2 mg/dL (0.15-1 .2) 04/06/23 19:26 AST 19 U/L (0-40) 04/06/23 19:26 ALT 22 U/L (0-41) 04/06/23 19:26 Alkaline Phosphata se 97 U/L (40-130) 04/06/23 19:26 Total Protein 6.3 g/dL (6.6-8.7 ) L 04/06/23 19:26 Albumin 4.2 g/dL (3.5-5.2 ) 04/06/23 19:26 Globulin 2.1 g/dL (1.3-4.6 ) 04/06/23 19:26 Salicylates < 0.3 mg/dL (3-10 ) L 04/06/23 19:26 Acetaminophen < 5.0 ug/mL (10-3 0) L 04/06/23 19:26 Ethyl Alcohol 246 mg/dL (0-10) H 04/06/23 22:30 Vitals: Last Vital Signs Temp 97.8 F 04/09/23 14:33 Pulse 85 04/09/23 14:33 Resp 18 04/09/23 14:33 BP 134/91 04/09/23 14:33 Pulse Ox 95 04/09/23 14:33 O2 Del Method Room Air 04/09/23 06:00 O2 Flow Rate 3 04/06/23 21:56 Discharge Plan Discharge Patient Disposition: Home Condition: Stable Prescriptions: Continued acetaminophen 500 mg Tablet 1,000 mg PO Q6H PRN (Reason: Pain) clonidine HCl 0.1 mg tablet 0.1 mg PO QAM Qty: 30 0RF Seroquel 300 mg tablet 600 mg PO BEDTIME 30 Days Qty: 60 1RF buprenorphine-naloxone 8-2 mg tablet, sublingual 1 tab SUBLINGUAL BID 30 Days Qty: 60 0RF Discharge Orders: Discharge Order (Routine); Ordered 04/09/23 Ordered By: Collin Francis Referrals: [facility] [Outside] - 04/10/23 9:30 am (Initial appointment with Kesha Norman on 04/10/23 at 9:30 am check in and will need provider for suboxone follow up.) Akil Ordoñez [Primary Care Provider] - Discharge Diet: Usual diet Discharge Activity: Resume usual activity Patient Instructions: Opioid Safety Discharge Attestations NPU Time Spent in Discharge Care*: less than 30 min Specific Discharge Activities: Specific discharge activities: educating patient and documenting/other paperwork Status at Discharge: Cognitive status at discharge: cognitively intact , Behavioral status at discharge: cooperative , Coding Level of Care Code Acute [facility] note Diagnoses Bipolar depression F31.9 Opioid use disorder, moderate, dependence F11.20 Alcohol abuse F10.10
== END 2023-04-09 17:05 | disposition home or self-care (01) | DRG 897 ==
LOC: ER 04-07 06:21 → NP 04-07 11:57
PROVIDERS: Emergency Medicine; Admitting Provider Psychiatry & Neurology Psychiatry; Emergency Provider Family Medicine; PCP Family Medicine; Visit Provider Psychiatry & Neurology Psychiatry
DX: F10.229 Alcohol dependence with intoxication, unspecified (principal); R45.851 Suicidal ideations; Y90.9 Presence of alcohol in blood, level not specified; F11.23 Opioid dependence with withdrawal; F43.10 Post-traumatic stress disorder, unspecified; F31.9 Bipolar disorder, unspecified; F41.9 Anxiety disorder, unspecified; G89.29 Other chronic pain; M54.9 Dorsalgia, unspecified; F63.81 Intermittent explosive disorder; F17.220 Nicotine dependence, chewing tobacco, uncomplicated
CPT/HCPCS: 36415; 70450; 80053; 80307; 85025; 96372; 97150; 97165; 99285; J0573; J1630; Q0162

== ENCOUNTER 2023-08-24 09:50 | Inpatient (IN) | payer MEDICAID, SELFPAY ==
[2023-08-24 09:56] VITALS: BP 106/72; PULSE 110; RESP 14; TEMP 36.9; O2SAT 99
[2023-08-24 09:58] VITALS: BMI 28.3
--- NOTE | 2023-08-24 11:39 | PC.NURSE ---
Patient arrived to unit appearing very anxious and requested to use the bathroom 3 times before assessment began. Patient states he became very depressed and backslid because he went to [place] due to his aunt on his mother's side passing away. He endorses using 100mg of fentanyl per day, with his last use being 4 days ago. He also endorses drinking a pint of schnapp's every other day with the last use being 2 days ago and utilizing marijuana 3 days ago. Although in report, the nurse at [facility] reported he was suicidal, he denied this and said he did not currently feel suicidal or homicidal either. He endorsed having visual and auditory hallucinations, but only when he was detoxing and that they felt more like night terrors than anything. Patient denies having any follow-up after he was discharged here in april. Patient's hands have been shaking and he has been nauseous throughout the assessment.
[2023-08-24 12:00] VITALS: BP 106/72; PULSE 110; RESP 18; TEMP 36.9; O2SAT 99
[2023-08-24] MEDS: lisinopril 5 mg Tablet PO (12:31)
[2023-08-24] MEDS: buprenorphine-naloxone 4-1 mg Film 2 EACH SUBLINGUAL ×2 (12:40→18:51)
[2023-08-24 14:00] VITALS: BP 106/72; PULSE 110; RESP 18; TEMP 36.9; O2SAT 99
--- NOTE | 2023-08-24 16:30 | P.NPUHP_ITS ---
Providers/Chief Complaint Admitting Physician: Lewis Erwin MD Primary Care Provider: Akil Ordoñez Chief Complaint: SI HPI NPU History of Present Illness Kyle Cartwright is a 42 year old male who presented to the emergency department in [facility] with complaints of wanting to blow his brains out . Patient was admitted to the [facility] on transfer for further evaluation and treatment. He had reported that he had previously been sober since his last hospitalization here but stated that he relapsed on fentanyl approximately 1 week ago. Patient had endorsed feeling more depressed recently as his aunt had apparently of heart attack. He had reported feeling more sad over the past month as he stated that he had attempted to get off of Suboxone. He had reported having struggles with maintaining his appointments due to transportation issues. He had reported a past history of diagnosis of bipolar disorder. He also reported a history of PTSD related symptoms and reports that he continues to have nightmares, flashbacks and difficulties with sleep continuity disruption. Inpatient psychiatric history: He reports multiple inpatient hospitalizations with most recent hospitalization here on the NPU in April 2023. Outpatient psychiatric history: Currently receiving medication management under Dr. Zaidi his primary care physician Current medications: Lisinopril 5 mg daily, Suboxone 8 mg / 2 mg twice a day, Seroquel 600 mg at night, clonidine .1mg at night, Vitamin D3, Medical history: History of hepatitis C, history of hypertension, joint pain, chronic back pain, chronic neck pain Surgical history: Lipoma resection Allergies: ketorolac, lidocaine, Family psychiatric history: Depression on the maternal side of the family Social history: Currently lives in [place] with his mother who he takes care of on a regular basis. He has 2 adult boys who live outside of the home. He had been previously and witnessed the of his by suicide. He had reported trauma and states that he lost his father in as he had been a [place]. He reports that he was raised by his mother in [place]. 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 Excerpt from previous discharge summary from NPU on 04/09/23 History of Present Illness Kyle Cartwright is a 42 year old male ? With a previous history of opiate dependence benzodiazepine dependence alcohol dependence and PTSD admitted after he had endorsed suicidal ideation.? He had reported that he was having constant problems with managing his addiction to fentanyl as he had stated that he was using fentanyl patches in order to get high.? He reports that he is currently in opiate withdrawal and reported that he was uncertain as to whether he would be able to survive without treatment.? He endorses depressed mood.? He reports some feelings of hopelessness.? He reports difficulties with concentration.? He had r eported continued cravings for opiates.? He had reported a past history of frequent mood swings and a history of trauma stemming from having witnessed his having killed herself 12 years ago.? He reports having reexperiencing phenomenon regarding this and reports having some nightmares.? He had reported previously having used alcohol but states that he is not using significantly at this time.? He had reported that he has not had any recent seizures since stopping his use of alcohol and is no longer taking Keppra.? The patient had reported continued use of opiates despite adverse consequences.? He had reported an increase in tolerance initially but now reports that he has been attempting to cut out fentanyl but has been having severe withdrawal symptoms with dysphoria and severe depression.? Patient had endorsed alcohol use during his most recent admission here.? The patient's blood alcohol level was 246 on admission. ? Inpatient psychiatric history: He had reported a past history of multiple inpatient hospitalizations but none recently. ? Outpatient psychiatric history: He reports that he is previously received outpatient substance abuse treatment under Dr. Joyner through the [facility] but reports that his medication management is currently under Dr. Zaidi his primary care physician. ? Current medications: Seroquel 600 mg at night, clonidine 0.1 mg in the morning, ?allergies: Codeine, Toradol, lidocaine ?Medical history: History of hepatitis, irritable bowel syndrome, rectal bleeding, chronic back pain, GI bleed, Surgical history: ? history of reported back surgery ?Family psychiatric history: Unknown Drug and Alcohol hx:? he had reported history of inpatient substance abuse treatment in [place] in [facility] in the past.? He had reported having a significant history of alcohol abuse as well as a history of opiate abuse for the past 12 years. ? Social history: Patient reports that he was raised in [facility] and had attended college.? He reports that his mother had raised him and his dad had been killed in [place] while serving in the [employer] as a [place].? He currently lives in [place] and is as his had completed suicide in 2011.? He has 2 adult boys who live out of the home ages 18 and 23.? He had reported trauma from having witnessed the of his .? 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 Hospital Course Hospital Course During the hospitalization, the patient had routine laboratory studies which were within normal limits except for a few outliers.? Additionally, there was a general medical evaluation which was also within normal limits and revealed no new acute processes.? At the time of discharge, lethality was denied and psychosis was resolving.? Mood and anxiety were well managed.? The patient endorsed a plan to avoid all drugs of abuse and follow up with the aftercare recommendations of the treatment team.? The patient was evaluated and deemed to be absent credible lethality and had achieved the maximum benefit from an inpatient hospitalization, and so was discharged.?He reported relief of opiate withdrawal symptoms on suboxone at 16mg/2mg daily. Meds NPU Home Medications Medication Instructions Recorded Confirmed Last Taken Type acetaminophen 500 mg tablet 1,000 mg PO Q6H PRN Pain 10/05/22 04/07/23 Unknown History buprenorphine 8 mg-naloxone 2 mg 1 tab sublingual BID 30 days #60 04/09/23 2 Days Ago Rx sublingual tablet tabs ~08/22/23 8MG/2MG quetiapine 300 mg tablet (Seroquel) 600 mg (2 x 300 mg) PO BEDTIME 30 04/09/23 08/23/23 Rx days #60 tabs clonidine HCl 0.1 mg tablet 0.1 mg PO BEDTIME 08/24/23 2 Days Ago History ~08/22/23 0.1MG lisinopril 5 mg tablet 5 mg PO DAILY 08/24/23 08/24/23 2 Days Ago History ~08/22/23 5 MG Allergies Allergy/AdvReac Type Severity Reaction Status Date / Time codeine Allergy Unknown Verified 11/19/21 18:16 ketorolac [From Toradol] Allergy ALGY-Hives Verified 12/17/20 21:08 lidocaine Allergy ALGY-Hives Verified 12/17/20 21:08 PFS NPU PFSH: Medical History (Updated 04/14/23 @ 00:02 by AARON Ellis) Hepatitis Chronic back pain Depression Substance abuse Suicide attempt Intermittent explosive disorder Anxiety PTSD (post-traumatic stress disorder) Bipolar disorder Seizure disorder Suicidal ideation Alcoholism Rectal bleed IBS (irritable bowel syndrome) GI bleed Surgical History History of back surgery Social History Smoking and tobacco/nicotine status: current every day tobacco/nicotine user smokeless tobacco Smokeless tobacco user: snuff Smokeless tobacco details: 1 can/2 weeks Quit status (tobacco/nicotine): not considering quitting Second hand smoke exposure: No Current gender identity: Male Mental Status Exam MSE Comments: Well-nourished white male who appeared his stated age. He had a disheveled appearance with poor hygiene. His gait was normal. He appeared somewhat dysphoric with mild psychomotor retardation appreciated. His mood was described as okay. His affect was restricted in range and mood incongruent. His thought process was linear logical and goal-directed. His thought content showed no evidence of active homicidal or suicidal ideation. He did not appear to be responding to internal stimuli. There is no evidence of delusional thinking. His attention span appeared fair his speech was normal in regards to rate rhythm and prosody. His recent and remote memory were grossly intact. His insight was fair. His judgment was poor. His impulse control appeared limited. Vitals/I&O/Wt Last Vital Signs Temp 98.4 F 08/24/23 12:00 Pulse 110 H 08/24/23 12:00 Resp 18 08/24/23 12:00 BP 106/72 08/24/23 12:00 Pulse Ox 99 08/24/23 12:00 O2 Del Method Room Air 08/24/23 12:00 Weight last 48 hrs Weight 111.13 kg Weight 111.13 kg A&P Assessment and plan (1) Bipolar depression: (2) Opioid use disorder, moderate, dependence: (3) Alcohol abuse: Plan 42-year-old male with a history of bipolar disorder along with polysubstance abuse admitted with suicidal ideation with complaints of continued opioid abuse. He would likely benefit from brief acute inpatient stay while reinitiating treatment for opiate addiction. 1. ?Encourage individual, group and milieu therapy. 2. Recommend sober living treatment at the highest level of care to which the patient is willing to commit. 3. Continue q-15 minute checks for safety 4. Restart suboxone 8mg/2mg SL BID. 5.. Restart outpatient medications. . Involuntary Hold Information 96 Hour Hold: 96 Hour Involuntary Admission: No 96 Hour Hold Ending Date: 04/13/23 96 Hour Hold Ending Time: 00:01 Attestations NPU Medical Necessity Statement*: Inpatient hospitalization is medically necessary and deemed to be the ?clinically appropriate intervention ?at this time.? We will monitor/initiate medications and make changes as indicated.? She will be in the hospital for over 2 midnights.? His likely length of stay 2-3 days. Coding Level of Care Code Acute Code for Chg Fwd Diagnoses Bipolar depression F31.9 Opioid use disorder, moderate, dependence F11.20 Alcohol abuse F10.10
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
[2023-08-24] MEDS: quetiapine 300 mg Tablet 600 MG PO (20:14)
[2023-08-24] MEDS: ondansetron 4 MG Tablet PO (20:14)
[2023-08-24 20:15] VITALS: BP 106/72
[2023-08-24] MEDS: hyDROXYzine 25 mg Capsule 50 MG PO (20:15)
[2023-08-24] MEDS: cloNIDine 0.1 mg Tablet PO (20:15)
[2023-08-24 20:42] VITALS: BP 131/85; PULSE 110; RESP 18; TEMP 36.8; O2SAT 93
[2023-08-25 06:00] VITALS: BP 126/77; PULSE 114; RESP 20; TEMP 37; O2SAT 94
--- NOTE | 2023-08-25 06:20 | PC.NURSE ---
PT RECEIVED ZOFRAN EARLIER IN THE SHIFT FOR COMPLAINTS OF NAUSEA. MEDICATION DEEMED EFFECTIVE. PT HAS EATEN 6 SANDWICHES, 4 BAGS OF COOKIES, SEVERAL DRINKS AND DRANK 7-8 MILKS. PT SLEPT APPROXIMATELY 7-8 HOURS THIS SHIFT.
[2023-08-25] MEDS: lisinopril 5 mg Tablet PO (09:42)
[2023-08-25] MEDS: buprenorphine-naloxone 4-1 mg Film 2 EACH SUBLINGUAL (09:42)
--- NOTE | 2023-08-25 11:52 | W.PM.NPUDCS ---
Diagnoses at Discharge Discharge Diagnosis (1) Bipolar depression: Status: Acute (2) Opioid use disorder, moderate, dependence: Status: Acute (3) Alcohol abuse: Status: Acute Reason for Visit Reason for Visit: SI Brief History: History of Present Illness Kyle Cartwright is a 42 year old male who presented to the emergency department in [facility] with complaints of wanting to blow his brains out . Patient was admitted to the MPU on transfer for further evaluation and treatment. He had reported that he had previously been sober since his last hospitalization here but stated that he relapsed on fentanyl approximately 1 week ago. Patient had endorsed feeling more depressed recently as his aunt had apparently of heart attack. He had reported feeling more sad over the past month as he stated that he had attempted to get off of Suboxone. He had reported having struggles with maintaining his appointments due to transportation issues. He had reported a past history of diagnosis of bipolar disorder. He also reported a history of PTSD related symptoms and reports that he continues to have nightmares, flashbacks and difficulties with sleep continuity disruption. Inpatient psychiatric history: He reports multiple inpatient hospitalizations with most recent hospitalization here on the NPU in April 2023. Outpatient psychiatric history: Currently receiving medication management under Dr. Zaidi his primary care physician Current medications: Lisinopril 5 mg daily, Suboxone 8 mg / 2 mg twice a day, Seroquel 600 mg at night, clonidine .1mg at night, Vitamin D3, Medical history: History of hepatitis C, history of hypertension, joint pain, chronic back pain, chronic neck pain Surgical history: Lipoma resection Allergies: ketorolac, lidocaine, Family psychiatric history: Depression on the maternal side of the family Social history: Currently lives in [place] with his mother who he takes care of on a regular basis. He has 2 adult boys who live outside of the home. He had been previously and witnessed the of his by suicide. He had reported trauma and states that he lost his father in as he had been a [place]. He reports that he was raised by his mother in [place]. 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 Excerpt from previous discharge summary from NPU on 04/09/23 History of Present Illness Kyle Cartwright is a 42 year old male ? With a previous history of opiate dependence benzodiazepine dependence alcohol dependence and PTSD admitted after he had endorsed suicidal ideation.? He had reported that he was having constant problems with managing his addiction to fentanyl as he had stated that he was using fentanyl patches in order to get high.? He reports that he is currently in opiate withdrawal and reported that he was uncertain as to whether he would be able to survive without treatment.? He endorses depressed mood.? He reports some feelings of hopelessness.? He reports difficulties with concentration.? He had reported continued cravings for opiates.? He had reported a past history of frequent mood swings and a history of trauma stemming from having witnessed his having killed herself 12 years ago.? He reports having reexperiencing phenomenon regarding this and reports having some nightmares.? He had reported previously having used alcohol but states that he is not using significantly at this time.? He had reported that he has not had any recent seizures since stopping his use of alcohol and is no longer taking Keppra.? The patient had reported continued use of opiates despite adverse consequences.? He had reported an increase in tolerance initially but now reports that he has been attempting to cut out fentanyl but has been having severe withdrawal symptoms with dysphoria and severe depression.? Patient had endorsed alcohol use during his most recent admission here.? The patient's blood alcohol level was 246 on admission. ? Inpatient psychiatric history: He had reported a past history of multiple inpatient hospitalizations but none recently. ? Outpatient psychiatric history: He reports that he is previously received outpatient substance abuse treatment under Dr. Joyner through the [facility] but reports that his medication management is currently under Dr. Zaidi his primary care physician. ? Current medications: Seroquel 600 mg at night, clonidine 0.1 mg in the morning, ?allergies: Codeine, Toradol, lidocaine ?Medical history: History of hepatitis, irritable bowel syndrome, rectal bleeding, chronic back pain, GI bleed, Surgical history: ? history of reported back surgery ?Family psychiatric history: Unknown Drug and Alcohol hx:? he had reported history of inpatient substance abuse treatment in [place] in [facility] in the past.? He had reported having a significant history of alcohol abuse as well as a history of opiate abuse for the past 12 years. ? Social history: Patient reports that he was raised in [facility] and had attended college.? He reports that his mother had raised him and his dad had been killed in [place] while serving in the [employer] as a [place].? He currently lives in [place] and is as his had completed suicide in 2012.? He has 2 adult boys who live out of the home ages 18 and 23.? He had reported trauma from having witnessed the of his .? 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 Hospital Course Hospital Course During the hospitalization, the patient had routine laboratory studies which were within normal limits except for a few outliers.? Additionally, there was a general medical evaluation which was also within normal limits and revealed no new acute processes.? At the time of discharge, lethality was denied and psychosis was resolving.? Mood and anxiety were well managed.? The patient endorsed a plan to avoid all drugs of abuse and follow up with the aftercare recommendations of the treatment team.? The patient was evaluated and deemed to be absent credible lethality and had achieved the maximum benefit from an inpatient hospitalization, and so was discharged.?He reported relief of opiate withdrawal symptoms on suboxone at 16mg/2mg daily. Hospital Course Hospital Course During the hospitalization, the patient had routine laboratory studies which were within normal limits except for a few outliers.? Additionally, there was a general medical evaluation which was also within normal limits and revealed no new acute processes.? At the time of discharge, lethality was denied and psychosis was resolving.? Mood and anxiety were well managed.? The patient endorsed a plan to avoid all drugs of abuse and follow up with the aftercare recommendations of the treatment team.? The patient was evaluated and deemed to be absent credible lethality and had achieved the maximum benefit from an inpatient hospitalization, and so was discharged. ?Suboxone was restarted on admission at 16mg/2mg daily as previously prescribed with great benefit. Involuntary Hold Information 96 Hour Hold: 96 Hour Involuntary Admission: No 96 Hour Hold Ending Date: 04/13/23 96 Hour Hold Ending Time: 00:01 Mental Status Exam MSE Comments: Well-nourished white male who appeared his stated age. He casually dressed with improving hygiene. His gait was normal. There was no evidence of psychomotor agitation or psychomotor retardation on discharge. His mood was described as good. His affect was euthymic and mood congruent. His thought process was linear logical and goal-directed. His thought content showed no evidence of active homicidal or suicidal ideation. He did not appear to be responding to internal stimuli. There is no evidence of delusional thinking. His attention span appeared fair; his speech was normal in regards to rate rhythm and prosody. His recent and remote memory were grossly intact. His insight was fair. His judgment was adequate. His impulse control appeared limited. Discharge Data Vitals: Last Vital Signs Temp 98.6 F 08/25/23 06:00 Pulse 114 H 08/25/23 06:00 Resp 20 H 08/25/23 06:00 BP 126/77 08/25/23 06:00 Pulse Ox 94 08/25/23 06:00 O2 Del Method Room Air 08/25/23 06:00 Discharge Plan Discharge Patient Disposition: Home Condition: Stable Prescriptions: Continued lisinopril 5 mg tablet 5 mg PO DAILY clonidine HCl 0.1 mg tablet 0.1 mg PO BEDTIME buprenorphine-naloxone 8-2 mg tablet, sublingual 1 tab SUBLINGUAL BID 30 Days Qty: 60 0RF quetiapine [Seroquel] 300 mg tablet 600 mg PO BEDTIME 30 Days Qty: 60 1RF Discharge Orders: Discharge Order (Routine); Ordered 08/25/23 Ordered By: Collin Francis Referrals: [facility] [Outside] - 08/31/23 11:30 am (Initial assessment for services with [facility]) Discharge Diet: Usual diet Discharge Activity: Resume usual activity Patient Instructions: Alcohol Abuse, Bipolar Disorder (DC), Opioid Safety Discharge Attestations NPU Time Spent in Discharge Care*: less than 30 min Specific Discharge Activities: Specific discharge activities: educating patient, documenting/other paperwork and evaluating patient/reviewing data Status at Discharge: Cognitive status at discharge: cognitively intact, Behavioral status at discharge: cooperative, Coding Level of Care Code Acute Code for [facility] Fwd Diagnoses Bipolar depression F31.9 Opioid use disorder, moderate, dependence F11.20 Alcohol abuse F10.10
[2023-08-25 13:27] VITALS: BP 120/68; PULSE 92; RESP 18; TEMP 37; O2SAT 98
== END 2023-08-25 14:52 | disposition home or self-care (01) | DRG 885 ==
PROVIDERS: Admitting Provider Psychiatry & Neurology Psychiatry; PCP Family Medicine; Visit Provider Psychiatry & Neurology Psychiatry
DX: F31.9 Bipolar disorder, unspecified (principal); R45.851 Suicidal ideations; F11.20 Opioid dependence, uncomplicated; F10.10 Alcohol abuse, uncomplicated; F43.10 Post-traumatic stress disorder, unspecified; F17.220 Nicotine dependence, chewing tobacco, uncomplicated
CPT/HCPCS: J0573; Q0162

== ENCOUNTER 2024-02-20 19:48 | Inpatient (IN) | payer MEDICAID, SELFPAY ==
[2024-02-20 19:51] VITALS: BP 109/73; PULSE 90; RESP 18; TEMP 36.7; O2SAT 94; BMI 30.8
--- NOTE | 2024-02-20 20:00 | PC.NURSE ---
Attempted to read 96 hour hold rights to patient. Patient stated I don't want you to read that to me i know what it is and i dont want to hear it. This nurse gave a copy of the rights to patient.
--- NOTE | 2024-02-20 20:14 | ED_ITS ---
Documented by User: Jay Amos DO 02/20/24 22:06 HPI - Overdose 2 General: Chief Complaint: Overdose Stated Complaint: OD Time Seen by Provider: 02/20/24 19:53 Source: patient and EMS Mode of arrival: EMS Limitations: no limitations History of Present Illness: History provided by EMS is that this patient was previously at a [facility] facility earlier today and left that facility because he could not get Suboxone. He apparently then went home and took a dose of fentanyl which he states to me that he was trying to kill himself. He subsequently then gave himself intranasal Narcan and EMS was notified who arrived on scene and gave him additional IV Narcan. He now states that he is trying to kill himself and was trying to kill himself with his most recent fentanyl adventure.. He states he is an opiate addict and desires Suboxone. Patient has a longstanding history of opiate use disorder and does not endorse any other medications. He continues to request that he be given Suboxone and asked that I consult with the neuropsychiatrist who is given him Suboxone in the past. He also continues to endorse that he needs help. MD complaint: intentional overdose Intent: suicide attempt Related Data Home Medications Medication Instructions Recorded Confirmed clonidine HCl 0.1 mg tablet 0.1 mg PO BEDTIME 08/24/23 08/24/23 lisinopril 5 mg tablet 5 mg PO DAILY 08/24/23 08/24/23 Previous Rx's Medication Instructions Recorded quetiapine 300 mg tablet (Seroquel) 600 mg (2 x 300 mg) PO BEDTIME 30 04/09/23 days #60 tabs buprenorphine 8 mg-naloxone 2 mg 1 tab sublingual BID 30 days #60 08/25/23 sublingual tablet tabs Allergies Allergy/AdvReac Type Severity Reaction Status Date / Time codeine Allergy Unknown Verified 02/20/24 20:01 ketorolac [From Toradol] Allergy ALGY-Hives Verified 02/20/24 20:01 lidocaine Allergy ALGY-Hives Verified 02/20/24 20:01 Review of Systems 2 General: Reports: 10 or more systems reviewed and unremarkable except in HPI and below Psych: Reports: suicidal ideation [facility] ED 2 PFSH: Medical History (Updated 02/20/24 @ 20:26 by Jay Amos DO) Hepatitis Chronic back pain Depression Substance abuse Suicide attempt Intermittent explosive disorder Anxiety PTSD (post-traumatic stress disorder) Bipolar disorder Seizure disorder Suicidal ideation Alcoholism Rectal bleed IBS (irritable bowel syndrome) GI bleed Surgical History History of back surgery Social History Smoking and tobacco/nicotine status: current every day tobacco/nicotine user smokeless tobacco Smokeless tobacco user: snuff Smokeless tobacco details: 1 can/2 weeks Quit status (tobacco/nicotine): not considering quitting Second hand smoke exposure: No Current gender identity: Male Physical Exam 2 Narrative: EXAM NARRATIVE: The patient currently is lying in examination bed interacting and is somewhat cubitus and disjointed fashion. He is wearing to ball hats each with glasses attached to the bill. He asked someone in a hostile manner but does make good eye contact Const: COMMON NORMALS: alert GENERAL APPEARANCE: disheveled HENMT: COMMON NORMALS: normocephalic, Normal nasal mucous membranes and turbinates present, moist oral mucous membranes and oropharynx normal HEAD & SCALP: normocephalic FACE & SINUS: normal facial exam NOSE: Normal nasal mucous membranes and turbinates present Eye: COMMON NORMALS: Equal, round and reactive pupils present, EOMs intact bilaterally and conjunctivae normal CONJUNCTIVA: Yes conjunctivae normal P UPIL: Yes Equal, round and reactive pupils present Neck/C-Spine: COMMON NORMALS: full ROM and no lymphadenopathy Resp: COMMON NORMALS: normal respiratory effort, No use of accessory muscles and clear to auscultation bilaterally AUSCULTATION: clear to auscultation bilaterally Cardio: COMMON NORMALS: regular rate, regular rhythm, No murmurs present (Cardio) and Peripheral pulses 2+ throughout RATE: regular rate RHYTHM: r egular rhythm PERIPHERAL PULSES: Peripheral pulses 2+ throughout GI: COMMON NORMALS: Normal to inspection, nondistended, normoactive bowel sounds present and Soft to palpation PALPATION: Yes Soft to palpation : COMMON NORMALS: Yes no CVA tenderness BLADDER/KIDNEY EXAM: Yes no CVA tenderness Back/Pelvis: COMMON NORMALS: no CVA tenderness, thoracic and lumbar spine normal to inspection and thoraco-lumbar ROM normal Extremity: COMMON NORMALS: normal to inspection, full ROM and no calf tenderness Neuro: COMMON NORMALS: moves all extremities, no focal motor deficits and no sensory deficits noted SENSORIUM/ORIENTATION: Yes alert Psych: APPEARANCE: Yes disheveled ATTITUDE: Yes engaged, Yes evasive, Yes Belligerent attititude/behavior present and Yes aggressive ACTIVITY/MOTOR BEHAVIOR: Yes appropriate eye contact and Yes restless SPEECH: Yes loud M OOD & AFFECT: Yes elevated mood and Yes irritable THOUGHT PROCESS: C ircumstantial thought process present and disorganized THOUGHT CONTENT: Yes Suicidality present INSIGHT: Limited insight present (Psych) JUDGEMENT: L imited judgement present (Psych) Skin: COMMON NORMALS: no rashes or lesions noted and turgor normal GENERAL SKIN EXAM: no rashes or lesions noted and turgor normal Course 2 Consultations: Consultation #1: Called and consulted with Dr. Erwin the on-call psychiatrist who is very familiar with this patient. We reviewed his current presentation and I also disclosed that I had filled out the initial paperwork for 96-hour hold based upon his presentation and the uncertainty of the patient's intentions. Dr. Erwin plans on reviewing his [facility] notes if they are available and make a determination for the best disposition for Mr. Daugherty Time: 21:35 Vital Signs: Vital signs: Vital Signs Temperature 98.0 F 02/20/24 19:51 Pulse Rate 90 02/20/24 19:51 Respiratory Rate 18 02/20/24 19:51 Blood Pressure 109/73 02/20/24 19:51 Pulse Oximetry 94 02/20/24 19:51 Oxygen Delivery Me thod Room Air 02/20/24 19:51 MDM - Overdose Medical Decision Making This patient presented to our emergency department via EMS as noted in the HPI. The patient endorsed very strongly that his reason for taking fentanyl overdose was to kill himself. He then proceeded to discuss his need for Suboxone and other demands. His initial evaluation revealed him to be alert and fully recovered from his attempted overdose from fentanyl which was treated by Narcan prior to arrival by both the patient self administering Narcan as well as EMS administering Narcan in route. Workup ensued to ensure no other ongoing evidence of a emergent medical condition. He was monitored in the emergency department for period of time over 2 hours which was sufficient time to make him a low risk for continued opiate effects. His suicidality is indeterminate although the patient's had a history of similar presentations in the past requiring mental health observation. Because of his uncertainty on initial presentation 96-hour paperwork was completed by this ER physician in anticipation of possibly needing to hold him against as well. Consultation was made with the attending psychiatrist regarding potential disposition. Medical Records I reviewed the patient's medical records. Previous hospitalization most recent in August of this year for mental health issues with this recent admission in August of this year due to suicidal ideation and other opiate craving issues. Lab Data 02/20/24 20:31 02/20/24 20:31 Laboratory Results WBC 8.28 10^3/uL (3.29-11.43) 02/20/24 20:31 RBC 4.56 10^6/uL (3.85-5.65) 02/20/24 20: Hgb 13.60 g/dL (11.27-16.99) 02/20/24 20: Hct 41.2 % (37-53) 02/20/24 20:31 MCV 90.4 fl (82-101) 02/20/24 20: MCH 29.8 pg (27-33) 02/20/24 20: MCHC 33.0 g/dL (30-55) 02/20/24 20: RDW 12.4 % (12.1-15.1) 02/20/24 20: Plt Count 188 10^3/cmm (157-399) 02/20/24 20: MPV 11.2 fL (7.4-10.4) H 02/20/24 20:31 Neut % (Auto) 60.8 % 02/20/24 20: Lymph % (Auto) 25.8 % 02/20/24 20: Douglas % (Auto) 7.5 % 02/20/24 20:31 Eos % (Auto) 5.0 % 02/20/24 20: Baso % (Auto) 0.8 % 02/20/24 20: Neut # (Auto) 5.03 10^3/uL (1.8-7.7) 02/20/24 20: Lymph # (Auto) 2.1 10^3/uL (0.8-4.8) 02/20/24 20: Douglas # (Auto) 0.6 10^3/uL (0.2-0.9) 02/20/24 20:31 Eos # (Auto) 0.4 10^3/uL (0.0-0.8) 02/20/24 20:31 Baso # (Auto) 0.1 10^3/uL (0.0-0.1) 02/20/24 20:31 Nucleated RBC % (auto) 0 % 02/20/24 20:31 Nucleated RBCs # 0.0 /100WBC 02/20/24 20:31 Sodium 138 mmol/L (136-145) 02/20/24 20:31 Potassium 4.0 mmol/L (3.5-5.1) 02/20/24 20:31 Chloride 106 mmol/L (98-107) 02/20/24 20:31 Carbon Dioxide 21 mmol/L (22-29) L 02/20/24 20:31 Anion Gap 15.0 (5-19) 02/20/24 20:31 BUN 14 mg/dL (6-20) 02/20/24 20:31 Creatinine 1.0 mg/dL (0.7-1.2) 02/20/24 20:31 GFR Calculation 81.9 mL/min (90-130) L 02/20/24 20:31 Glucose 104 mg/dL (65-115) 02/20/24 20:31 Calculated Osmolality 287 mOsm/kg (285-295) 02/20/24 20:31 Calcium 8.4 mg/dL (8.5-10.5) L 02/20/24 20:31 Total Bilirubin 0.2 mg/dL (0.15-1.2) 02/20/24 20:31 AST 15 U/L (0-40) 02/20/24 20:31 ALT 14 U/L (0-41) 02/20/24 20:31 Alkaline Phosphatase 93 U/L (40-130) 02/20/24 20:31 Total Protein 6.5 g/dL (6.6-8.7) L 02/20/24 20:31 Albumin 4.0 g/dL (3.5-5.2) 02/20/24 20:31 Globulin 2.5 g/dL (1.3-4.6) 02/20/24 20:31 Salicylates < 0.3 mg/dL (3-10) L 02/20/24 20:31 Acetaminophen 8.6 ug/mL (10-30) L 02/20/24 20:31 Ethyl Alcohol < 10 mg/dL (0-10) 02/20/24 20:31 No radiology studies performed this visit Discharge Plan Discharge Patient Disposition: Admitted As Inpatient Clinical Impression: Opioid use disorder, moderate, dependence, Suicidal ideation Drug overdose Qualifiers: Encounter type: initial encounter Injury intent: undetermined intent Qualified Code(s): T50.904A - Poisoning by unspecified drugs, medicaments and biological substances, undetermined, initial encounter Condition: Stable Coding Level of Care Code ED Administrative Office Manager for Chg Fwd Documented by User: Nella Barton MD 02/20/24 22:27 HPI - Overdose 2 General: Chief Complaint: Overdose Stated Complaint: OD Time Seen by Provider: 02/20/24 19:53 Related Data Home Medications Medication Instructions Recorded Confirmed clonidine HCl 0.1 mg tablet 0.1 mg PO BEDTIME 08/24/23 08/24/23 lisinopril 5 mg tablet 5 mg PO DAILY 08/24/23 08/24/23 Previous Rx's Medication Instructions Recorded quetiapine 300 mg tablet (Seroquel) 600 mg (2 x 300 mg) PO BEDTIME 30 04/09/23 days #60 tabs buprenorphine 8 mg-naloxone 2 mg 1 tab sublingual BID 30 days #60 08/25/23 sublingual tablet tabs Allergies Allergy/AdvReac Type Severity Reaction Status Date / Time codeine Allergy Unknown Verified 02/20/24 20:01 ketorolac [From Toradol] Allergy ALGY-Hives Verified 02/20/24 20:01 lidocaine Allergy ALGY-Hives Verified 02/20/24 20:01 [facility] ED 2 [facility]: Medical History (Updated 02/20/24 @ 20:26 by Jay Amos DO) Hepatitis Chronic back pain Depression Substance abuse Suicide attempt Intermittent explosive disorder Anxiety PTSD (post-traumatic stress disorder) Bipolar disorder Seizure disorder Suicidal ideation Alcoholism Rectal bleed IBS (irritable bowel syndrome) GI bleed Surgical History History of back surgery Social History Smoking and tobacco/nicotine status: current every day tobacco/nicotine user smokeless tobacco Smokeless tobacco user: snuff Smokeless tobacco details: 1 can/2 weeks Quit status (tobacco/nicotine): not considering quitting Second hand smoke exposure: No Current gender identity: Male Course 2 Vital Signs: Vital signs: Vital Signs Temperature 98.0 F 02/20/24 19:51 Pulse Rate 90 02/20/24 19:51 Respiratory Rate 18 02/20/24 19:51 Blood Pressure 109/73 02/20/24 19:51 Pulse Oximetry 94 02/20/24 19:51 Oxygen Delivery Me thod Room Air 02/20/24 19:51 MDM - Overdose Medical Decision Making This patient presented to our emergency department via EMS as noted in the HPI. The patient endorsed very strongly that his reason for taking fentanyl overdose was to kill himself. He then proceeded to discuss his need for Suboxone and other demands. His initial evaluation revealed him to be alert and fully recovered from his attempted overdose from fentanyl which was treated by Narcan prior to arrival by both the patient self administering Narcan as well as EMS administering Narcan in route. Workup ensued to ensure no other ongoing evidence of a emergent medical condition. He was monitored in the emergency department for period of time over 2 hours which was sufficient time to make him a low risk for continued opiate effects. His suicidality is indeterminate although the patient's had a history of similar presentations in the past requiring mental health observation. Because of his uncertainty on initial presentation 96-hour paperwork was completed by this ER physician in anticipation of possibly needing to hold him against as well. Consultation was made with the attending psychiatrist regarding potential disposition. Differential diagnosis: Patient with reported depression and suicidal ideation and a drug overdose. concerns for infection, alcohol intoxication, cardiac issues or other medical problems prior to psychiatric admission. Workup: labwork, ekg ordered to evaluate the pathologies and to clear the patient medically prior to psychiatric admission Lab Review: Laboratory results were reviewed and interpreted by myself the emergency room physician. Lab review: - Medically cleared. - EKG shows no ischemic changes. - Blood alcohol level is negative, -Tylenol and salicylate levels are negative. - Drug screen and urinalysis are pending at admission - No anemia. - BUN and creatinine are within normal limits. Consultation: I spoke with Dr. Erwin on-call for the psychiatric unit. He is very clear that the patient will not be getting Suboxone and this seems to be part of his underlying intentions when he comes in. He will accept the patient to the unit. Patient has been placed on a hold Assessment and plan: Drug overdose Suicidal ideation Opioid dependence -Admission to neuropsychiatric unit for continued evaluation and treatment. - All lab work was reviewed and interpreted personally by myself, the ER physician - Evaluation and treatment of this problem were appropriate in the emergency setting Lab Data 02/20/24 20:02/20/24 20: Laboratory Results WBC 8.28 10^3/uL (3.29-11.43) 02/20/24 20: RBC 4.56 10^6/uL (3.85-5.65) 02/20/24 20: Hgb 13.60 g/dL (11.27-16.99) 02/20/24 20: Hct 41.2 % (37-53) 02/20/24 20: MCV 90.4 fl (82-101) 02/20/24 20: MCH 29.8 pg (27-33) 02/20/24 20: MCHC 33.0 g/dL (30-55) 02/20/24 20: RDW 12.4 % (12.1-15.1) 02/20/24 20: Plt Count 188 10^3/cmm (157-399) 02/20/24 20: MPV 11.2 fL (7.4-10.4) H 02/20/24 20: Neut % (Auto) 60.8 % 02/20/24 20: Lymph % (Auto) 25.8 % 02/20/24 20: Douglas % (Auto) 7.5 % 02/20/24 20: Eos % (Auto) 5.0 % 02/20/24 20: Baso % (Auto) 0.8 % 02/20/24 20: Neut # (Auto) 5.03 10^3/uL (1.8-7.7) 02/20/24 20: Lymph # (Auto) 2.1 10^3/uL (0.8-4.8) 02/20/24 20:31 Douglas # (Auto) 0.6 10^3/uL (0.2-0.9) 02/20/24 20:31 Eos # (Auto) 0.4 10^3/uL (0.0-0.8) 02/20/24 20:31 Baso # (Auto) 0.1 10^3/uL (0.0-0.1) 02/20/24 20:31 Nucleated RBC % (auto) 0 % 02/20/24 20:31 Nucleated RBCs # 0.0 /100WBC 02/20/24 20:31 Sodium 138 mmol/L (136-145) 02/20/24 20: Potassium 4.0 mmol/L (3.5-5.1) 02/20/24 20: Chloride 106 mmol/L (98-107) 02/20/24 20:31 Carbon Dioxide 21 mmol/L (22-29) L 02/20/24 20:31 Anion Gap 15.0 (5-19) 02/20/24 20:31 BUN 14 mg/dL (6-20) 02/20/24 20:31 Creatinine 1.0 mg/dL (0.7-1.2) 02/20/24 20:31 GFR Calculation 81.9 mL/min (90-130) L 02/20/24 20:31 Glucose 104 mg/dL (65-115) 02/20/24 20:31 Calculated Osmolality 287 mOsm/kg (285-295) 02/20/24 20: Calcium 8.4 mg/dL (8.5-10.5) L 02/20/24 20:31 Total Bilirubin 0.2 mg/dL (0.15-1.2) 02/20/24 20:31 AST 15 U/L (0-40) 02/20/24 20:31 ALT 14 U/L (0-41) 02/20/24 20:31 Alkaline Phosphatase 93 U/L (40-130) 02/20/24 20:31 Total Protein 6.5 g/dL (6.6-8.7) L 02/20/24 20:31 Albumin 4.0 g/dL (3.5-5.2) 02/20/24 20:31 Globulin 2.5 g/dL (1.3-4.6) 02/20/24 20:31 Salicylates < 0.3 mg/dL (3-10) L 02/20/24 20:31 Acetaminophen 8.6 ug/mL (10-30) L 02/20/24 20:31 Ethyl Alcohol < 10 mg/dL (0-10) 02/20/24 20:31 Discharge Plan Discharge Patient Disposition: Admitted As Inpatient Clinical Impression: Opioid use disorder, moderate, dependence, Suicidal ideation Drug overdose Qualifiers: Encounter type: initial encounter Injury intent: undetermined intent Qualified Code(s): T50.904A - Poisoning by unspecified drugs, medicaments and biological substances, undetermined, initial encounter Condition: Stable Coding Level of Care Code ED Administrative Office Manager for Edmond Hwang
[2024-02-20 20:36] LABS: Basophils # 0.1 10^3/uL (0.0-0.1); Basophils % 0.8 %; Eosinophils # 0.4 10^3/uL (0.0-0.8); Hematocrit 41.2 % (37-53); Lymphocytes # 2.1 10^3/uL (0.8-4.8); Lymphocytes % 25.8 %; Mean Corpuscular Hemoglobin 29.8 pg (27-33); Mean Corpuscular Volume 90.4 fl (82-101); Mean Platelet Volume 11.2 fL (7.4-10.4); Monocytes # 0.6 10^3/uL (0.2-0.9); Monocytes % 7.5 %; Neutrophils # 5.03 10^3/uL (1.8-7.7); Neutrophils % 60.8 %; Nucleated Red Blood Cells % 0 %; Platelet Count 188 10^3/cmm (157-399); Red Blood Count 4.56 10^6/uL (3.85-5.65); Red Cell Distribution Width 12.4 % (12.1-15.1); White Blood Count 8.28 10^3/uL (3.29-11.43)
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
[2024-02-20 20:52] LABS: Acetaminophen 8.6 ug/mL (10-30); Alanine Aminotransferase 14 U/L (0-41); Alkaline Phosphatase 93 U/L (40-130); Aspartate Amino Transferase 15 U/L (0-40); Blood Urea Nitrogen 14 mg/dL (6-20); Calcium 8.4 mg/dL (8.5-10.5); Carbon Dioxide 21 mmol/L (22-29); Chloride 106 mmol/L (98-107); Creatinine Clr Calc Pharmacy 140.5805; Globulin 2.5 g/dL (1.3-4.6); Glomerular Filtration Rate 81.9 mL/min (90-130); Glucose 104 mg/dL (65-115); Osmolality Calculated 287 mOsm/kg (285-295); Sodium 138 mmol/L (136-145); Total Bilirubin 0.2 mg/dL (0.15-1.2); Total Protein 6.5 g/dL (6.6-8.7)
[2024-02-20 20:55] LABS: Salicylate < 0.3 mg/dL (3-10)
[2024-02-20 21:24] LABS: Alcohol Level < 10 mg/dL (0-10)
[2024-02-20 22:55] VITALS: BP 120/84; PULSE 84; RESP 20; O2SAT 99
[2024-02-20 23:02] VITALS: BP 109/73; PULSE 90; RESP 18; TEMP 36.7; O2SAT 94
--- NOTE | 2024-02-21 06:31 | PC.NURSE ---
pt refused vitals signs this am pts resp are 17
[2024-02-21] MEDS: acetaminophen 325 mg Tablet 650 MG PO (08:04)
[2024-02-21] MEDS: ondansetron 4 MG Tablet PO (08:04)
[2024-02-21] MEDS: OLANZapine 5 mg ODT PO (08:04)
[2024-02-21 08:15] VITALS: BP 136/92; PULSE 90; RESP 16; O2SAT 100
--- NOTE | 2024-02-21 12:04 | W.PM.NPUH&PS ---
Providers/Chief Complaint Admitting Physician: Lewis Erwin MD Primary Care Provider: Akil Ordoñez Chief Complaint: OD HPI NPU History of Present Illness Kyle Cartwright is a 43 year old male who presented to the emergency department with the following report: Chief Complaint: Overdose Stated Complaint: OD Time Seen by Provider: 02/20/24 19:53 Source: patient and EMS Mode of arrival: EMS Limitations: no limitations History of Present Illness: History provided by EMS is that this patient was previously at a [facility] earlier today and left that facility because he could not get Suboxone. He apparently then went home and took a dose of fentanyl which he states to me that he was trying to kill himself. He subsequently then gave himself intranasal Narcan and EMS was notified who arrived on scene and gave him additional IV Narcan. He now states that he is trying to kill himself and was trying to kill himself with his most recent fentanyl adventure.. He states he is an opiate addict and desires Suboxone. Patient has a longstanding history of opiate use disorder and does not endorse any other medications. He continues to request that he be given Suboxone and asked that I consult with the neuropsychiatrist who is given him Suboxone in the past. He also continues to endorse that he needs help. complaint: intentional overdose Intent: suicide attempt. He was admitted to the neuropsychiatric unit for definitive treatment of those issues. He is well-known to the neuropsychiatric unit through numerous hospitalizations in his history. Those hospitalizations are generally fairly predictable and that in some way shape or form the outcome he seeks is getting Suboxone prescribed and often is not having clear follow-up outpatient there is some story that is supposed to explain why he is not actively in treatment and about to get his next provider and this time is no different. An excerpt of his last hospitalization in July of this year is included below for context and the fact that there are no substantive changes. He presents today reporting: Chief complaint The patient is struggling with substance abuse, specifically fentanyl, and is seeking help for detoxification. He has been in and out of treatment programs and has had difficulty maintaining a consistent provider for his medication, Suboxone. He recently overdosed after leaving [facility] and is currently experiencing severe withdrawal symptoms. History of the present complaint The patient reported a history of substance abuse, specifically mentioning the use of fentanyl. He recently returned from a 30-day treatment program in [place] and was seeking a provider for [facility] However, he was unable to afford the $200 deposit required. He mentioned that a new facility had opened in [place] that accepts Medicaid, and his mother had arranged an appointment for him there. However, he was struggling with severe detox symptoms and had recently overdosed after leaving [facility]. The patient expressed frustration and desperation, stating that he didn't think he could wait until his appointment at the new facility. He also mentioned that he had been using Seroquel at night, but it was unclear whether this was a current prescription or an old one. He acknowledged that he needed to be in active treatment and seemed to understand the importance of having a consistent provider and following up on appointments. 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 He denied having any current legal issues or being on probation. He reported feeling unwell but denied any current thoughts of self-harm or suicide. He also denied experiencing any hallucinations. The patient seemed to be struggling with the challenges of managing his substance abuse and navigating the healthcare system. He expressed a desire to stay consistent with his new provider, citing the convenience of the location and the support of his mother. However, he also acknowledged the difficulties he had faced in the past with maintaining consistent treatment and following up on appointments. The patient's mood appeared to be low, and he seemed to be experiencing significant distress related to his substance abuse and the challenges of managing his treatment. Despite these difficulties, he expressed a desire to improve and seemed to understand the importance of active and consistent treatment. Mental health history The patient has a history of substance abuse and has been in and out of treatment programs. He has been prescribed Seroquel in the past, but it is unclear if he is currently in active treatment. He has been struggling with maintaining a consistent provider for his medication, Suboxone. Social history The patient is currently living with his mother who is assisting him in managing his appointments and treatment. 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 He has no current legal issues or probation. He recently returned from a 30-day treatment program in [place]. Per his 08/25/2023 [facility] inpatient psychiatric discharge summary: Discharge Diagnosis (1) Bipolar depression: Status: Acute (2) Opioid use disorder, moderate, dependence: Status: Acute (3) Alcohol abuse: Status: Acute Reason for Visit Reason for Visit: SI Brief History: History of Present Illness Kyle Cartwright is a 42 year old male who presented to the emergency department in [facility] with complaints of wanting to blow his brains out . Patient was admitted to the MPU on transfer for further evaluation and treatment. He had reported that he had previously been sober since his last hospitalization here but stated that he relapsed on fentanyl approximately 1 week ago. Patient had endorsed feeling more depressed recently as his aunt had apparently of heart attack. He had reported feeling more sad over the past month as he stated that he had attempted to get off of Suboxone. He had reported having struggles with maintaining his appointments due to transportation issues. He had reported a past history of diagnosis of bipolar disorder. He also reported a history of PTSD related symptoms and reports that he continues to have nightmares, flashbacks and difficulties with sleep continuity disruption. Inpatient psychiatric history: He reports multiple inpatient hospitalizations with most recent hospitalization here on the NPU in April 2023. Outpatient psychiatric history: Currently receiving medication management under Dr. Zaidi his primary care physician Current medications: Lisinopril 5 mg daily, Suboxone 8 mg / 2 mg twice a day, Seroquel 600 mg at night, clonidine .1mg at night, Vitamin D3, Medical history: History of hepatitis C, history of hypertension, joint pain, chronic back pain, chronic neck pain Surgical history: Lipoma resection Allergies: ketorolac, lidocaine, Family psychiatric history: Depression on the maternal side of the family Social history: Currently lives in [place] with his mother who he takes care of on a regular basis. He has 2 adult boys who live outside of the home. He had been previously and witnessed the of his by suicide. He had reported trauma and states that he lost his father in [facility] as he had been a [place]. He reports that he was raised by his mother in [place]. 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 Excerpt from previous discharge summary from NPU on 04/09/23 History of Present Illness Kyle Cartwright is a 42 year old male With a previous history of opiate dependence benzodiazepine dependence alcohol dependence and PTSD admitted after he had endorsed suicidal ideation. He had reported that he was having constant problems with managing his addiction to fentanyl as he had stated that he was using fentanyl patches in order to get high. He reports that he is currently in opiate withdrawal and reported that he was uncertain as to whether he would be able to survive without treatment. He endorses depressed mood. He reports some feelings of hopelessness. He reports difficulties with concentration. He had reported continued cravings for opiates. He had reported a past history of frequent mood swings and a history of trauma stemming from having witnessed his having killed herself 12 years ago. He reports having reexperiencing phenomenon regarding this and reports having some nightmares. He had reported previously having used alcohol but states that he is not using significantly at this time. He had reported that he has not had any recent seizures since stopping his use of alcohol and is no longer taking Keppra. The patient had reported continued use of opiates despite adverse consequences. He had reported an increase in tolerance initially but now reports that he has been attempting to cut out fentanyl but has been having severe withdrawal symptoms with dysphoria and severe depression. Patient had endorsed alcohol use during his most recent admission here. The patient's blood alcohol level was 246 on admission. Inpatient psychiatric history: He had reported a past history of multiple inpatient hospitalizations but none recently. Outpatient psychiatric history: He reports that he is previously received outpatient substance abuse treatment under Dr. Joyner through the [facility] but reports that his medication management is currently under Dr. Zaidi his primary care physician. Current medications: Seroquel 600 mg at night, clonidine 0.1 mg in the morning, allergies: Codeine, Toradol, lidocaine Medical history: History of hepatitis, irritable bowel syndrome, rectal bleeding, chronic back pain, GI bleed, Surgical history: history of reported back surgery Family psychiatric history: Unknown Drug and Alcohol hx: he had reported history of inpatient substance abuse treatment in [place] in [facility] in the past. He had reported having a significant history of alcohol abuse as well as a history of opiate abuse for the past 12 years. Social history: Patient reports that he was raised in [facility] and had attended college. He reports that his mother had raised him and his dad had been killed in [place] while serving in the [employer] as a [place]. He currently lives in [place] and is as his had completed suicide in 2011. He has 2 adult boys who live out of the home ages 18 and 23. He had reported trauma from having witnessed the of his . 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 Hospital Course Hospital Course During the hospitalization, the patient had routine laboratory studies which were within normal limits except for a few outliers. Additionally, there was a general medical evaluation which was also within normal limits and revealed no new acute processes. At the time of discharge, lethality was denied and psychosis was resolving. Mood and anxiety were well managed. The patient endorsed a plan to avoid all drugs of abuse and follow up with the aftercare recommendations of the treatment team. The patient was evaluated and deemed to be absent credible lethality and had achieved the maximum benefit from an inpatient hospitalization, and so was discharged. He reported relief of opiate withdrawal symptoms on suboxone at 16mg/2mg daily. Hospital Course During the hospitalization, the patient had routine laboratory studies which were within normal limits except for a few outliers. Additionally, there was a general medical evaluation which was also within normal limits and revealed no new acute processes. At the time of discharge, lethality was denied and psychosis was resolving. Mood and anxiety were well managed. The patient endorsed a plan to avoid all drugs of abuse and follow up with the aftercare recommendations of the treatment team. The patient was evaluated and deemed to be absent credible lethality and had achieved the maximum benefit from an inpatient hospitalization, and so was discharged. Suboxone was restarted on admission at 16mg/2mg daily as previously prescribed with great benefit. Meds NPU Home Medications Medication Instructions Recorded Confirmed Last Taken Type quetiapine 300 mg tablet (Seroquel) 600 mg (2 x 300 mg) PO BEDTIME 30 04/09/23 02/20/24 08/23/23 Rx days #60 tabs Allergies Allergy/AdvReac Type Severity Reaction Status Date / Time codeine Allergy Unknown Verified 02/20/24 20:01 ketorolac [From Toradol] Allergy ALGY-Hives Verified 02/20/24 20:01 lidocaine Allergy ALGY-Hives Verified 02/20/24 20:01 [facility] NPU PFS: Medical History (Updated 02/20/24 @ 20:26 by Jay Amos DO) Hepatitis Chronic back pain Depression Substance abuse Suicide attempt Intermittent explosive disorder Anxiety PTSD (post-traumatic stress disorder) Bipolar disorder Seizure disorder Suicidal ideation Alcoholism Rectal bleed IBS (irritable bowel syndrome) GI bleed Surgical History History of back surgery Social History Smoking and tobacco/nicotine status: current every day tobacco/nicotine user smokeless tobacco Smokeless tobacco user: snuff Smokeless tobacco details: 1 can/2 weeks Quit status (tobacco/nicotine): not considering quitting Second hand smoke exposure: No Current gender identity: Male Mental Status Exam MSE Comments: This is an overweight versus obese white male in hospital scrubs with limited grooming and adequate eye contact. Significant tattooing on exposed skin. No abnormal movements except for mild psychomotor retardation. Cooperative with exam in mild to moderate distress. Speech was normal rate and volume. Mood described as struggling, affect congruent. Thought process organized. Thought content: Patient denied any suicidal or homicidal ideations, there were no delusions reported or noted, he denies any auditory or visual hallucinations. The patient is experiencing severe withdrawal symptoms from fentanyl. He denies any current thoughts of self-harm or harm to others. He does not report any hallucinations. His mood is low, stating he doesn't feel good. Attention and concentration were intact and memory was unreliable and likely purposefully so but none were formally tested. He is alert and oriented ?3. Insight and judgment are limited and impulse control is limited versus impaired. Vitals/I&O/Wt Last Vital Signs Temp 98.0 F 02/20/24 23:02 Pulse 90 02/21/24 08:15 Resp 16 02/21/24 08:15 BP 136/92 02/21/24 08:15 Pulse Ox 100 02/21/24 08:15 O2 Del Method Room Air 02/20/24 23:01 Weight last 48 hrs Weight 121.109 kg Data NPU 02/20/24 20:31 02/20/24 20:31 A&P Assessment and plan (1) Bipolar depression: (2) Opioid use disorder, moderate, dependence: (3) Alcohol abuse: (4) Antisocial personality disorder: (5) Opioid use disorder, severe, in early remission, on maintenance therapy, dependence: (6) Malingering: (7) Suicidal ideation: Plan This is a 43-year-old male with a history of bipolar disorder along with polysubstance abuse admitted with suicidal ideation with patient having recently taken a significant overdose on fentanyl. This is consistent with aspects of most other inpatient admissions with considerable concern for malingering with most of his visits and including concerns of specifically drug-seeking. The patient is in a critical situation with his substance abuse, struggling with severe withdrawal symptoms and recently experiencing an overdose. He has a history of inconsistent treatment and medication management. He is currently not in active treatment and is relying on old prescriptions. He has an upcoming appointment for treatment, but it is unclear if this will provide the consistent care he needs. 1. Encourage individual, group and milieu therapy. 2. Recommend sober living treatment at the highest level of care to which the patient is willing to commit. 3. Continue q-15 minute checks for safety 4. CIWA protocol. 5. Will not start Suboxone until there is an outpatient provider giving a date of service that the medication will be started outpatient. 6. Restart Seroquel, and clonidine as prescribed. Involuntary Hold Information 96 Hour Hold: 96 Hour Involuntary Admission: No 96 Hour Hold Ending Date: 02/26/24 96 Hour Hold Ending Time: 20:05 Attestations U Medical Necessity Statement*: Inpatient hospitalization is medically necessary and the clinically appropriate intervention at this time. He will be in the hospital for over 2 midnight. We will monitor medications and make adjustments as indicated. Likely length of stay 2-4 days. Coding Level of Care Code Acute Code for [facility] Fwd Diagnoses Bipolar depression F31.9 Opioid use disorder, moderate, dependence F11.20 Alcohol abuse F10.10 Antisocial personality disorder F60.2 Opioid use disorder, severe, in early remission, on maintenance therapy, dependence F11.21 Malingering Z76.5 Suicidal ideation R45.854
--- NOTE | 2024-02-21 13:40 | PC.NURSE ---
PT VERY AGITATED THIS AM AND AFTERNOON. PT CONTINUES TO DEMAND SUBOXONE AND I NEED IT NOW I'M WITHDRAWING DAMNIT. PT HAS BEEN EDUCATED SEVERAL TIMES BY SEVERAL RN'S AND DR. FERRARI THAT IF HE HAS A PROVIDER THAT IS PRESCRIBING HIM SUBOXONE HE NEEDS TO LET US KNOW SO WE CAN CALL AND VERIFY IT SO THE MEDI CATION CAN BE CONTINUED AT THE CORRECT DOSE AND TIMES. PT TOLD MULTIPLE STORIES ABOUT WHO PRESCRIBED HIS SUBOXONE. PT STATES DR. WILLOUGHBY FROM [facility] IS THE ONE WHO PRESCRIBES IT. THIS RN CALLED [facility] IN [facility] AND WHEN PT OBSERVED THIS RN ON THE PHONE PT CHANGED IT FROM THE ER TO THE CLINIC NEXT DOOR. WHEN THE FIRE EXTINGUISHER MECHANIC STARTED TO CALL THE CLINIC THE PT THEN STATED THEY GAVE HIM A REFERRAL TO SOME CLINIC IN [place] BUT I DON'T KNOW WHERE. PT THEN CALLED THE CLINIC HIMSELF AND THEN GAVE THE PHONE TO THE NURSE. [facility] IN [place] THEY HAVE MADE AN APT FOR February AT 400PM. PT STATES HE HAS TRANSPORTATION TO APT. PROVIDER WILL BE TRENA BRITO NP. OPTIC FIBRE DRAWER FROM CLINIC IS UNABLE TO ASSURE THIS STAFF IF SHE WILL PRESCRIBE SUBOXONE OR NOT BUT IT IS A SUBOXONE CLINIC. PT DENIES SI/JT AND AVH AT THIS TIME. PT RATES GENERALIZED PAIN 10/10 BUT THEN WENT RIGHT TO SLEEP ONCE RN LEFT ROOM. PT WAS MEDICATED FOR PAIN PRIOR FROM THE MED NURSE, SEE MAR FOR DETAILS AND TIMES. RATES ANXIETY AND DEPRESSION 10/10. PT WAS ALSO WAS GIVEN ZYDIS 5 MG ORDERED FOR ANXIETY BY THE MED NURSE. ONCE ASSESSMENT WAS COMPLETED PT THEN LAID AQUILES AND WENT TO SLEEP WITHOUT ISSUE. PT DID CONTINUE TO ASK AND INSIST THE GIVE ME SUBOXONE FOR MY WITHDRAWALS. PT WAS ASSURED THAT ALL INFORMATION ABOUT HIS APT WILL BE GIVEN TO DR. FERRARI AND THEN WOULD BE THE ONE TO MAKE THE DECISION ON WHAT WAS PRESCRIBED. ALL INFORMATION WAS GIVEN TO WITH NO NEW ORDERS RECEIVED. SUPPORT WAS VOICED.
[2024-02-21 13:41] VITALS: RESP 16
--- NOTE | 2024-02-21 13:41 | PC.NURSE ---
PT IS RESTING QUIETLY. RESPS WERE OBTAINED AT 16.
--- NOTE | 2024-02-21 13:45 | PC.NURSE ---
PT RECEIVED THE FOLLOWING PRN MEDICATIONS PT WAS EDUCATED ON ALL MEDICATIONS AND VERBALIZED UNDERSTANDING : 5MG ZYPREXA FOR INCREASED AGITATION DUE TO NOT RECEIVING SUBOXONE AND WITHDRAWAL. AFTER PT TOOK THIS MEDICATION PT STATED ZYPREXA MAKES ME CRAZY CAN I HAVE ATIVAN? THIS NURSE EDUCATED THAT HE WILL NEED TO SPEAK WITH THE PHYSICIAN THE NURSES CANNOT PRESCRIBE MEDICATIONS. 4MG ZOFRAN PO FOR NAUSEA 650MG TYLENOL FOR A HEADACHE RATED A 5/10 ON A 0-10 SCALE WHERE 0 IS NONE AND 10 IS THE WORST. UPON REASSESSMENT PT STATED TO A DIFFERENT NURSE THAT HIS PAIN LEVEL 10/10 HOWEVER PT IS CURRENTLY RESTING IN BED WITH EYES CLOSED. RESPIRATIONS ARE EVEN AND NON-LABORED.
[2024-02-21 15:09] LABS: Amphetamines Screen Urine Positive (Negative); Barbiturates Screen Urine Negative (Negative); Benzodiazepines Screen Urine Positive (Negative); Cocaine Screen Urine Negative (Negative); Opiate Screen Urine Positive (Negative); PCP Screen Urine Negative (Negative); THC Screen Urine Negative (Negative)
[2024-02-21 20:14] VITALS: BP 145/97; PULSE 97; RESP 20; TEMP 36.8; O2SAT 97
[2024-02-21] MEDS: quetiapine 300 mg Tablet 600 MG PO (20:39)
[2024-02-21] MEDS: hyDROXYzine 25 mg Capsule 50 MG PO (20:39)
[2024-02-22 06:00] VITALS: RESP 16
[2024-02-22] MEDS: ondansetron 4 MG Tablet PO (08:14)
[2024-02-22] MEDS: haloperidol 5 mg Tablet PO (08:14)
[2024-02-22] MEDS: buprenorphine-naloxone 4-1 mg Film 1 EACH SUBLINGUAL ×2 (09:18→17:04)
--- NOTE | 2024-02-22 09:48 | PC.NURSE ---
AT NURSES STATION CONTINUES TO DEMAND HE BE GIVEN SOBOXONE NOW PLEASE, I'VE BEEN CALM AND COOPERATIVE AND HE NEEDS TO GIVE ME MY SUBOXONE. PT WAS ASSURED THAT THIS RN HAS GIVEN ALL INFORMATION TO DR. FERRARI. PT DENIES SI/HI AND AVH AT THIS TIME. DENIES PAIN. RATES ANXIETY 02/15 AND DEPRESSION /. HALDOL 5MG GIVEN FOR INCREASED ANXIETY. PT GIVEN ZOFRAN 4 MG FOR NAUSEA. THIS RN WENT AND SPOKE TO DR. FERRARI AGAIN THIS AM AND NEW ORDERS WERE GIVEN TO GIVE SUBOXONE 4/2MG 1 STRIP SL BID FOR OPIATE WITHDRAWAL. ORDERS PLACED AND PT EDUCATED ON MEDICATION. PT VERY PLEASED WITH ORDERS AND THANKS RN REPEATEDLY. ALL QUESTIONS ANSWERED AND SUPPORT VOICED,
--- NOTE | 2024-02-22 13:54 | P.NPUPN_ITS ---
Subjective NPU 2 Subjective: Patient presented today reporting that he is doing better now that the Suboxone was started. Moments after getting his first dose he made his first request to be discharged. We discussed this behavior and how this reflects the concern that everyone has or is having surrounding his presentations to the hospital. He denied any side effects to the medication and we discussed likely discharge by Sunday. Mental Status Exam 2 MSE Comments: This is an overweight versus obese white male in hospital scrubs with limited grooming and adequate eye contact. Significant tattooing on exposed skin. No abnormal movements except for mild psychomotor retardation. Cooperative with exam in mild to moderate distress. Speech was normal rate and volume. Mood described as struggling, affect congruent. Thought process organized. Thought content: Patient denied any suicidal or homicidal ideations, there were no delusions reported or noted, he denies any auditory or visual hallucinations. The patient is experiencing severe withdrawal symptoms from fentanyl. He denies any current thoughts of self-harm or harm to others. He does not report any hallucinations. His mood is low, stating he doesn't feel good. Attention and concentration were intact and memory was unreliable and likely purposefully so but none were formally tested. He is alert and oriented ?3. Insight and judgment are limited and impulse control is limited versus impaired. Vitals/I&O/Wt Last Vital Signs Temp 98.3 F 02/21/24 20:14 Pulse 97 02/21/24 20:14 Resp 16 02/22/24 06:00 BP 145/97 02/21/24 20:14 Pulse Ox 97 02/21/24 20:14 O2 Del Method Room Air 02/20/24 23:01 Weight last 48 hrs Weight 121.109 kg Data NPU 02/20/24 20:31 02/20/24 20:31 A&P Assessment and plan (1) Bipolar depression: (2) Opioid use disorder, moderate, dependence: (3) Alcohol abuse: (4) Antisocial personality disorder: (5) Opioid use disorder, severe, in early remission, on maintenance therapy, dependence: (6) Malingering: (7) Suicidal ideation: Plan This is a 43-year-old male with a history of bipolar disorder along with polysubstance abuse admitted with suicidal ideation with patient having recently taken a significant overdose on fentanyl. This is consistent with aspects of most other inpatient admissions with considerable concern for malingering with most of his visits and including concerns of specifically drug-seeking. The patient is in a critical situation with his substance abuse, struggling with severe withdrawal symptoms and recently experiencing an overdose. He has a history of inconsistent treatment and medication management. He is currently not in active treatment and is relying on old prescriptions. He has an upcoming appointment for treatment, but it is unclear if this will provide the consistent care he needs. 1. Encourage individual, group and milieu therapy. 2. Recommend sober living treatment at the highest level of care to which the patient is willing to commit. 3. Continue q-15 minute checks for safety 4. CIWA protocol. 5. Will not start Suboxone until there is an outpatient provider giving a date of service that the medication will be started outpatient. 6. Restart Seroquel, and clonidine as prescribed. Involuntary Hold Information 2 96 Hour Hold: 96 Hour Involuntary Admission: No 96 Hour Hold Ending Date: 0 02/26/24 96 Hour Hold Ending Time: 20:05 Attestations NPU 2 Medical Necessity Statement*: Inpatient hospitalization is medically necessary and the clinically appropriate intervention at this time. He will be in the hospital for over 2 midnight. Likely length of stay 1-3 days. Coding Level of Care Code Acute Code for [facility] Fwd Diagnoses Bipolar depression F31.9 Opioid use disorder, moderate, dependence F11.20 Alcohol abuse F10.10 Antisocial personality disorder F60.2 Opioid use disorder, severe, in early remission, on maintenance therapy, dependence F11.21 Malingering Z76.5 Suicidal ideation R45.856
[2024-02-22 14:00] VITALS: BP 137/85; PULSE 98; RESP 16; TEMP 37.1; O2SAT 98
[2024-02-22] MEDS: hyDROXYzine 25 mg Capsule 50 MG PO (20:46)
[2024-02-22] MEDS: quetiapine 300 mg Tablet 600 MG PO (20:46)
[2024-02-22 21:30] VITALS: BP 127/76; PULSE 87; RESP 17; TEMP 36.7; O2SAT 98
[2024-02-23 06:00] VITALS: BP 130/75; PULSE 76; RESP 18; TEMP 36.7; O2SAT 97
[2024-02-23] MEDS: buprenorphine-naloxone 4-1 mg Film 1 EACH SUBLINGUAL ×2 (09:00→17:46)
--- NOTE | 2024-02-23 09:35 | PC.NURSE ---
RESTING IN BED, DENIES PAIN. DENIES SI/HI AND AVH AT THIS TIME. PT STATES CAN YOU ASK THE DR. IF I CAN LEAVE TODAY. PT WAS INFORMED THAT WILL BE A CONVERSATION BETWEEN HIM AND THE DR. PT CONTINUES SUBOXONE THERAPY FOR OPIATE WITHDRAW. NO S/S OF WITHDRAWAL IS NOTED AT THIS TIME. RATES ANXIETY AND DEPRESSION 0/10. ALL QUESTIONS ANSWERED AND SUPPORT WAS VOICED.
[2024-02-23 14:00] VITALS: BP 124/72; PULSE 77; RESP 16; TEMP 36.8; O2SAT 98
--- NOTE | 2024-02-23 14:16 | P.NPUPN_ITS ---
Subjective NPU 2 Subjective: Patient presented today reporting that he is doing okay. He had a moment where he was expressing frustration but clearly was focused on being able to leave as soon as possible. We discussed this pattern that is followed him and most of our engagements. We discussed the importance of the treatment team holding him accountable even if there is a identifiable reason for the behavior. We discussed the likelihood of discharge tomorrow. He denied any side effects to medications. Mental Status Exam 2 MSE Comments: This is an overweight versus obese white male in hospital scrubs with limited grooming and adequate eye contact. Significant tattooing on exposed skin. No abnormal movements except for mild psychomotor retardation. Cooperative with exam in mild distress. Speech was normal rate and volume. Mood described as I think I am ready to go home, affect congruent. Thought process organized. Thought content: Patient denied any suicidal or homicidal ideations, there were no delusions reported or noted, he denies any auditory or visual hallucinations. He denies any current thoughts of self-harm or harm to others. Attention and concentration were intact and memory was unreliable and likely purposefully so but none were formally tested. He is alert and oriented ?3. Insight and judgment are limited and impulse control is limited versus impaired. Vitals/I&O/Wt Last Vital Signs Temp 98.1 F 02/23/24 06:00 Pulse 76 02/23/24 06:00 Resp 18 02/23/24 06:00 BP 130/75 02/23/24 06:00 Pulse Ox 97 02/23/24 06:00 O2 Del Method Room Air 02/23/24 06:00 Data NPU 02/20/24 20:31 02/20/24 20:31 A&P Assessment and plan (1) Bipolar depression: (2) Opioid use disorder, moderate, dependence: (3) Alcohol abuse: (4) Antisocial personality disorder: (5) Opioid use disorder, severe, in early remission, on maintenance therapy, dependence: (6) Malingering: (7) Suicidal ideation: Plan This is a 43-year-old male with a history of bipolar disorder along with polysubstance abuse admitted with suicidal ideation with patient having recently taken a significant overdose on fentanyl. This is consistent with aspects of most other inpatient admissions with considerable concern for malingering with most of his visits and including concerns of specifically drug-seeking. The patient is in a critical situation with his substance abuse, struggling with severe withdrawal symptoms and recently experiencing an overdose. He has a history of inconsistent treatment and medication management. He is currently not in active treatment and is relying on old prescriptions. He has an upcoming appointment for treatment, but it is unclear if this will provide the consistent care he needs. 1. Encourage individual, group and milieu therapy. 2. Recommend sober living treatment at the highest level of care to which the patient is willing to commit. 3. Continue q-15 minute checks for safety 4. CIWA protocol. 5. Restarted Suboxone and will give enough medication to get to appointment date. 6. Restart Seroquel, and clonidine as prescribed. Involuntary Hold Information 2 96 Hour Hold: 96 Hour Involuntary Admission: No 96 Hour Hold Ending Date: 0 02/26/24 96 Hour Hold Ending Time: 20:05 Attestations NPU 2 Medical Necessity Statement*: Inpatient hospitalization is medically necessary and the clinically appropriate intervention at this time. We will monitor medications and make changes as indicated. Likely length of stay 1-2 days. Coding Level of Care Code Acute Code for [facility] Fwd Diagnoses Bipolar depression F31.9 Opioid use disorder, moderate, dependence F11.20 Alcohol abuse F10.10 Antisocial personality disorder F60.2 Opioid use disorder, severe, in early remission, on maintenance therapy, dependence F11.21 Malingering Z76.5 Suicidal ideation R45.85
[2024-02-23] MEDS: hyDROXYzine 25 mg Capsule 50 MG PO (20:05)
[2024-02-23] MEDS: quetiapine 300 mg Tablet 600 MG PO (20:05)
[2024-02-23 21:41] VITALS: BP 131/80; PULSE 92; RESP 18; TEMP 36.6; O2SAT 98
[2024-02-24 06:00] VITALS: BP 110/65; PULSE 76; RESP 16; TEMP 36.7; O2SAT 99
[2024-02-24] MEDS: buprenorphine-naloxone 4-1 mg Film 1 EACH SUBLINGUAL (09:11)
--- NOTE | 2024-02-24 09:35 | W.PM.NPUDCS ---
Diagnoses at Discharge Discharge Diagnosis (1) Bipolar depression: Status: Acute (2) Opioid use disorder, moderate, dependence: Status: Acute (3) Alcohol abuse: Status: Resolved (4) Antisocial personality disorder: Status: Acute (5) Opioid use disorder, severe, in early remission, on maintenance therapy, dependence: Status: Acute (6) Malingering: Status: Acute (7) Suicidal ideation: Status: Acute Reason for Visit Reason for Visit: OD Involuntary Hold Information 96 Hour Hold: 96 Hour Involuntary Admission: No 96 Hour Hold Ending Date: 02/26/24 96 Hour Hold Ending Time: 20:05 Mental Status Exam MSE Comments: This is an overweight versus obese white male in hospital scrubs with limited grooming and adequate eye contact. Significant tattooing on exposed skin. No abnormal movements except for mild psychomotor retardation. Cooperative with exam in mild distress. Speech was normal rate and volume. Mood described as I think I am ready to go home, affect congruent. Thought process organized. Thought content: Patient denied any suicidal or homicidal ideations, there were no delusions reported or noted, he denies any auditory or visual hallucinations. He denies any current thoughts of self-harm or harm to others. Attention and concentration were intact and memory was unreliable and likely purposefully so but none were formally tested. He is alert and oriented ?3. Insight and judgment are limited and impulse control is limited versus impaired. Discharge Data Studies Completed and Pending: Laboratory Results WBC 8.28 10^3/uL (3.2 9-11.43) 02/20/24 20:31 RBC 4.56 10^6/uL (3.8 5-5.65) 02/20/24 20:31 Hgb 13.60 g/dL (11.27 -16.99) 02/20/24 20:31 Hct 41.2 % (37-53) 02/20/24 20:31 MCV 90.4 fl (82-101) 02/20/24 20:31 MCH 29.8 pg (27-33) 02/20/24 20:31 MCHC 33.0 g/dL (30-55) 02/20/24 20:31 RDW 12.4 % (12.1-15.1 ) 02/20/24 20:31 Plt Count 188 10^3/cmm (157 -399) 02/20/24 20:31 MPV 11.2 fL (7.4-10.4 ) H 02/20/24 20:31 Neut % (Auto) 60.8 % 02/20/24 20: Lymph % (Auto) 25.8 % 02/20/24 20: [place] % (Auto) 7.5 % 02/20/24 20: Eos % (Auto) 5.0 % 02/20/24 20: Baso % (Auto) 0.8 % 02/20/24 20: Neut # (Auto) 5.03 10^3/uL (1.8 -7.7) 02/20/24 20: Lymph # (Auto) 2.1 10^3/uL (0.8- 4.8) 02/20/24 20: [place] # (Auto) 0.6 10^3/uL (0.2- 0.9) 02/20/24 20: Eos # (Auto) 0.4 10^3/uL (0.0- 0.8) 02/20/24 20: Baso # (Auto) 0.1 10^3/uL (0.0- 0.1) 02/20/24 20: Nucleated RBC % (a uto) 0 % 02/20/24 20: Nucleated RBCs # 0.0 /100WBC 02/20/24 20: Sodium 138 mmol/L (136-1 45) 02/20/24 20: Potassium 4.0 mmol/L (3.5-5 .1) 02/20/24 20: Chloride 106 mmol/L (98-10 7) 02/20/24 20: Carbon Dioxide 21 mmol/L (22-29) L 02/20/24 20: Anion Gap 15.0 (5-19) 02/20/24 20: BUN 14 mg/dL (6-20) 02/20/24 20: Creatinine 1.0 mg/dL (0.7-1. 2) 02/20/24 20: GFR Calculation 81.9 mL/min (90-1 30) L 02/20/24 20:31 Glucose 104 mg/dL (65-115 ) 02/20/24 20: Calculated Osmolal ity 287 mOsm/kg (285- 295) 08/14/24 20:31 Calcium 8.4 mg/dL (8.5-10 .5) L 02/20/24 20:31 Total Bilirubin 0.2 mg/dL (0.15-1 .2) 02/20/24 20:31 AST 15 U/L (0-40) 02/20/24 20:31 ALT 14 U/L (0-41) 02/20/24 20:31 Alkaline Phosphata se 93 U/L (40-130) 02/20/24 20:31 Total Protein 6.5 g/dL (6.6-8.7 ) L 02/20/24 20:31 Albumin 4.0 g/dL (3.5-5.2 ) 02/20/24 20:31 Globulin 2.5 g/dL (1.3-4.6 ) 02/20/24 20:31 Salicylates < 0.3 mg/dL (3-10 ) L 02/20/24 20:31 Urine Opiates Scre en Positive ng/mL (N egative) H 02/21/24 14:26 Acetaminophen 8.6 ug/mL (10-30) L 02/20/24 20:31 Ur Barbiturates Sc reen Negative ng/mL (N egative) 02/21/24 14:26 Ur Phencyclidine S crn Negative ng/mL (N egative) 02/21/24 14:26 Ur Amphetamines Sc reen Positive ng/mL (N egative) H 02/21/24 14:26 U Benzodiazepines Scrn Positive ng/mL (N egative) H 02/21/24 14:26 Urine Cocaine Scre en Negative ng/mL (N egative) 02/21/24 14:26 U Marijuana (THC) Screen Negative ng/mL (N egative) 02/21/24 14:26 Ethyl Alcohol < 10 mg/dL (0-10) 02/20/24 20:31 Vitals: Last Vital Signs Temp 98.1 F 02/24/24 06:00 Pulse 76 02/24/24 06:00 Resp 16 02/24/24 06:00 BP 110/65 02/24/24 06:00 Pulse Ox 99 02/24/24 06:00 O2 Del Method Room Air 02/24/24 06:00 Discharge Plan Discharge Patient Disposition: Home Condition: Stable Prescriptions: New buprenorphine-naloxone 4-1 mg Film 1 film sublingual BID 8 Days Qty: 16 0RF Continued Seroquel 300 mg tablet 600 mg PO BEDTIME 30 Days Qty: 60 1RF Discharge Orders: Discharge Order (Routine); Ordered 02/24/24 Ordered By: Lewis Erwin Referrals: [facility] [Other] - 03/03/24 4:00 pm Akil Ordoñez [Primary Care Provider] - Discharge Diet: Regular Discharge Activity: Resume usual activity Patient Instructions: Opioid Safety Discharge Attestations NPU Time Spent in Discharge Care*: less than 30 min Specific Discharge Activities: Specific discharge activities: educating patient, discussing with lead case manager/social workers/dc planners, documenting/other paperwork and evaluating patient/reviewing data Status at Discharge: Cognitive status at discharge: cognitively intact, Behavioral status at discharge: cooperative, Coding Level of Care Code Acute Code for g Fwd Diagnoses Bipolar depression F31.9 Opioid use disorder, moderate, dependence F11.20 Alcohol abuse F10.10 Antisocial personality disorder F60.2 Opioid use disorder, severe, in early remission, on maintenance therapy, dependence F11.21 Malingering Z76.5 Suicidal ideation R45.851
[2024-02-24 09:48] VITALS: BP 110/65; PULSE 76; RESP 16; TEMP 36.7; O2SAT 99
== END 2024-02-24 10:12 | disposition home or self-care (01) | DRG 918 ==
LOC: ER 22:24 → NP 22:36
PROVIDERS: Emergency Medicine; Admitting Provider Psychiatry & Neurology Psychiatry; Emergency Provider Emergency Medicine; PCP Family Medicine; Visit Provider Psychiatry & Neurology Psychiatry
DX: T40.412A Poisoning by fentanyl or fentanyl analogs, intentional self-harm, initial encounter (principal); R45.851 Suicidal ideations; F11.23 Opioid dependence with withdrawal; F31.9 Bipolar disorder, unspecified; F10.10 Alcohol abuse, uncomplicated; F60.2 Antisocial personality disorder; F17.220 Nicotine dependence, chewing tobacco, uncomplicated; Z76.5 Malingerer [conscious simulation]; Y92.009 Unspecified place in unspecified non-institutional (private) residence as the place of occurrence of the external cause
CPT/HCPCS: 80053; 80306; 80307; 85025; 97150; 97165; 99285; J0573; Q0162

== ENCOUNTER 2024-12-05 15:43 | Inpatient (IN) | payer MEDICAID, SELFPAY ==
[2024-12-05] VITALS (44 sets, daily range): BP systolic 107–180; BP diastolic 59–102; PULSE 83–135; RESP 9–28; TEMP 36.8; O2SAT 88–97; BMI 28.8
--- NOTE | 2024-12-05 15:50 | W.ED.PSYCHS ---
HPI - Psych General: Chief Complaint: Psychiatric Symptoms Stated Complaint: mhe Time Seen by Provider: 12/05/24 15:44 Source: patient, EMS and police Mode of arrival: ambulatory History of Present Illness: 44-year-old male who is here with police and EMS for suicidal ideation patient was belligerent in public and was trying to run into traffic told police he wanted to kill himself. Patient here is being combative not giving full history.pt was given ketamine in route do to being combative Associated symptoms: Reports depression and suicidal ideation Related Data Home Medications ?Medication ?Instructions ?Recorded ?Confirmed buprenorphine 8 mg-naloxone 2 mg 1.5 tab sublingual BID 12/05/24 12/05/24 sublingual tablet dextroamphetamine-amphetamine 30 30 mg PO .@2PM 12/05/24 12/05/24 mg tablet Previous Rx's ?Medication ?Instructions ?Recorded quetiapine 300 mg tablet (Seroquel) 600 mg (2 x 300 mg) PO BEDTIME 30 02/24/24 days #60 tabs Allergies Allergy/AdvReac Type Severity Reaction Status Date / Time codeine Allergy Unknown Verified 02/20/24 20:01 ketorolac (From Toradol) Allergy ALGY-Hives Verified 02/20/24 20:01 lidocaine Allergy ALGY-Hives Verified 02/20/24 20:01 Review of Systems Const: Denies: fever(s), chills, body aches or change in appetite ENMT: Denies: throat pain or dental pain Card: Denies: chest pain Resp: Denies: dyspnea GI: Denies: abdominal pain, nausea, vomiting or diarrhea Musc: Denies: neck pain or back pain Skin/Breast: Denies: rash Neuro: Denies: headache(s) Psych: Reports: depression and suicidal ideation [facility] ED PFSH: Medical History (Updated 12/05/24 @ 20:40 by Mar Black MD) Hepatitis Chronic back pain Depression Substance abuse Suicide attempt Intermittent explosive disorder Anxiety PTSD (post-traumatic stress disorder) Bipolar disorder Seizure disorder Suicidal ideation Alcoholism Rectal bleed IBS (irritable bowel syndrome) GI bleed Surgical History History of back surgery Social History Smoking and tobacco/nicotine status: current every day tobacco/nicotine user smokeless tobacco Smokeless tobacco user: snuff Smokeless tobacco details: 1 can/2 weeks Quit status (tobacco/nicotine): not considering quitting Second hand smoke exposure: No Current gender identity: Male Physical Exam Const: COMMON NORMALS: patient oriented x3 HENMT: COMMON NORMALS: normocephalic and atraumatic HEAD & SCALP: normocephalic and atraumatic Eye: COMMON NORMALS: conjunctivae normal CONJUNCTIVA: Yes conjunctivae normal Neck/C-Spine: COMMON NORMALS: full ROM and supple Chest: COMMONS NORMALS: normal inspection of the chest Resp: COMMON NORMALS: normal respiratory effort Cardio: COMMON NORMALS: regular rate RATE: regular rate Extremity: COMMON NORMALS: normal to inspection and full ROM Neuro: COMMON NORMALS: patient oriented x3, moves all extremities and no focal motor deficits Psych: ATTITUDE: Yes agitated and Yes aggressive THOUGHT CONTENT: Yes Suicidality present Skin: COMMON NORMALS: no rashes or lesions noted and no wounds GENERAL SKIN EXAM: no rashes or lesions noted Face to Face: Restrn/Seclusion Events leading up to initiation: Verbalizing threat to self or others and Demonstrating self-destructive behavior (cutting, hitting amaral etc.) Evaluation of patient's immediate situation: Alert and oriented and No signs of physical distress Patient reaction since intervention applied: Continued attempts/displays harmful behavior Recent labs reviewed: Yes Review of medications: Yes Patient's current medical/behavioral condition: No new concerns since last ROS Course Vital Signs: Vital signs: Vital Signs Pulse Rate 86 12/05/24 18:45 Respiratory Rate 28 H 12/05/24 18:45 Blood Pressure 107/91 12/05/24 18:45 Pulse Oximetry 90 12/05/24 18:45 Oxygen Delivery Me thod Room Air 12/05/24 15:54 MDM - Psych Medical Decision Making Patient presents for suicidal ideations he is medically cleared spoke to psychiatrist will admit at this time. Medical Records I reviewed the patient's medical records. Lab Data I reviewed the patient's lab results. 12/05/24 16:49 12/05/24 16:49 Laboratory Results WBC 6.34 10^3/uL (3.29-11.43) 12/05/24 16:49 RBC 4.56 10^6/uL (3.85-5.65) 12/05/24 16:49 Hgb 13.40 g/dL (11.27-16.99) 12/05/24 16:49 Hct 40.7 % (37-53) 12/05/24 16:49 MCV 89.3 fl (82-101) 12/05/24 16:49 MCH 29.4 pg (27-33) 12/05/24 16:49 MCHC 32.9 g/dL (30-55) 12/05/24 16:49 RDW 12.6 % (12.1-15.1) 12/05/24 16:49 Plt Count 142 10^3/cmm (157-399) L 12/05/24 16:49 MPV 11.1 fL (7.4-10.4) H 12/05/24 16:49 Neut % (Auto) 56.9 % 12/05/24 16:49 Lymph % (Auto) 32.2 % 12/05/24 16:49 [place] % (Auto) 8.0 % 12/05/24 16:49 Eos % (Auto) 2.1 % 12/05/24 16:49 Baso % (Auto) 0.6 % 12/05/24 16:49 Neut # (Auto) 3.61 10^3/uL (1.8-7.7) 12/05/24 16:49 Lymph # (Auto) 2.0 10^3/uL (0.8-4.8) 12/05/24 16:49 [place] # (Auto) 0.5 10^3/uL (0.2-0.9) 12/05/24 16:49 Eos # (Auto) 0.1 10^3/uL (0.0-0.8) 12/05/24 16:49 Baso # (Auto) 0.0 10^3/uL (0.0-0.1) 12/05/24 16:49 Nucleated RBC % (auto) 0 % 12/05/24 16:49 Nucleated RBCs # 0.0 /100WBC 12/05/24 16:49 Sodium 142 mmol/L (136-145) 12/05/24 16:49 Potassium 4.1 mmol/L (3.5-5.1) 12/05/24 16:49 Chloride 104 mmol/L (98-107) 12/05/24 16:49 Carbon Dioxide 29 mmol/L (22-29) 12/05/24 16:49 Anion Gap 13.1 (5-19) 12/05/24 16:49 BUN 18 mg/dL (6-20) 12/05/24 16:49 Creatinine 1.2 mg/dL (0.7-1.2) 12/05/24 16:49 GFR Calculation 66.1 mL/min (90-130) L 12/05/24 16:49 Glucose 94 mg/dL (65-115) 12/05/24 16:49 Calculated Osmolality 296 mOsm/kg (285-295) H 12/05/24 16:49 Calcium 9.0 mg/dL (8.5-10.5) 12/05/24 16:49 Total Bilirubin 0.3 mg/dL (0.15-1.2) 12/05/24 16:49 AST 18 U/L (0-40) 12/05/24 16:49 ALT 15 U/L (0-41) 12/05/24 16:49 Alkaline Phosphatase 117 U/L (40-130) 12/05/24 16:49 Total Protein 6.6 g/dL (6.6-8.7) 12/05/24 16:49 Albumin 4.1 g/dL (3.5-5.2) 12/05/24 16:49 Globulin 2.5 g/dL (1.3-4.6) 12/05/24 16:49 Salicylates < 0.3 mg/dL (3-10) L 12/05/24 16:49 Urine Opiates Screen Negative ng/mL (Negative) 12/05/24 16:54 Acetaminophen < 5.0 ug/mL (10-30) L 12/05/24 16:49 Ur Barbiturates Screen Negative ng/mL (Negative) 12/05/24 16:54 Ur Phencyclidine Scrn Negative ng/mL (Negative) 12/05/24 16:54 Ur Amphetamines Screen Positive ng/mL (Negative) H 12/05/24 16:54 U Benzodiazepines Scrn Positive ng/mL (Negative) H 12/05/24 16:54 Urine Cocaine Screen Negative ng/mL (Negative) 12/05/24 16:54 U Marijuana (THC) Screen Negative ng/mL (Negative) 12/05/24 16:54 Ethyl Alcohol < 10 mg/dL (0-10) 12/05/24 16:49 No radiology studies performed this visit Discharge Plan Discharge Patient Disposition: Admitted As Inpatient Admit Provider: Lewis Erwin Clinical Impression: Suicidal ideation, Acute psychosis Condition: Stable Coding Level of Care Code ED Ticker Installer for Edmond Hwang
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
[2024-12-05] MEDS: ketamine 100 mg/mL Inj 5 mL 350 MG IM (15:58)
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
--- NOTE | 2024-12-05 16:02 | PC.NURSE ---
PATIENT GIVEN 50 MG KETAMINE IN ROUTE BY EMS.
--- NOTE | 2024-12-05 16:22 | PC.PHAR ---
Pt unable to verify medications. Med rec completed via [email or web address] with last fill dates and day supply.
--- NOTE | 2024-12-05 16:54 | PC.NURSE ---
right arm released from restraints @ 1654 by this RN. circulation checked in all other extremities, skin is pink warm and dry and pulses are intact.
[2024-12-05 17:05] LABS: Basophils % 0.6 %; Eosinophils # 0.1 10^3/uL (0.0-0.8); Eosinophils % 2.1 %; Hematocrit 40.7 % (37-53); Lymphocytes % 32.2 %; Mean Corpuscular HGB Conc 32.9 g/dL (30-55); Mean Corpuscular Hemoglobin 29.4 pg (27-33); Mean Corpuscular Volume 89.3 fl (82-101); Mean Platelet Volume 11.1 fL (7.4-10.4); Monocytes # 0.5 10^3/uL (0.2-0.9); Neutrophils # 3.61 10^3/uL (1.8-7.7); Neutrophils % 56.9 %; Nucleated Red Blood Cells % 0 %; Platelet Count 142 10^3/cmm (157-399); Red Blood Count 4.56 10^6/uL (3.85-5.65); Red Cell Distribution Width 12.6 % (12.1-15.1); White Blood Count 6.34 10^3/uL (3.29-11.43)
[2024-12-05 17:19] LABS: Amphetamines Screen Urine Positive (Negative); Barbiturates Screen Urine Negative (Negative); Benzodiazepines Screen Urine Positive (Negative); Cocaine Screen Urine Negative (Negative); Opiate Screen Urine Negative (Negative); PCP Screen Urine Negative (Negative); THC Screen Urine Negative (Negative)
[2024-12-05 17:25] LABS: Alanine Aminotransferase 15 U/L (0-41); Albumin Level 4.1 g/dL (3.5-5.2); Alkaline Phosphatase 117 U/L (40-130); Anion Gap 13.1 (5-19); Aspartate Amino Transferase 18 U/L (0-40); Blood Urea Nitrogen 18 mg/dL (6-20); Carbon Dioxide 29 mmol/L (22-29); Chloride 104 mmol/L (98-107); Creatinine Clr Calc Pharmacy 112.4922; Globulin 2.5 g/dL (1.3-4.6); Glomerular Filtration Rate 66.1 mL/min (90-130); Glucose 94 mg/dL (65-115); Osmolality Calculated 296 mOsm/kg (285-295); Potassium 4.1 mmol/L (3.5-5.1); Sodium 142 mmol/L (136-145); Total Bilirubin 0.3 mg/dL (0.15-1.2); Total Protein 6.6 g/dL (6.6-8.7)
[2024-12-05 17:29] LABS: Acetaminophen < 5.0 ug/mL (10-30); Alcohol Level < 10 mg/dL (0-10); Salicylate < 0.3 mg/dL (3-10)
--- NOTE | 2024-12-05 17:42 | PC.NURSE ---
pts right leg restraint removed @ 1720 and left leg was removed @ 1738 by this RN. pts pulses are intact and skin is pink, warm, and dry.
--- NOTE | 2024-12-05 17:59 | PC.NURSE ---
175, this RN removed pt from restraints. pt is resting with even respirations at this time.
[2024-12-05] MEDS: diphenhydrAMINE 50 mg/mL SDV 1mL IM ×2 (20:45→21:15)
[2024-12-05] MEDS: LORazepam 2 mg/mL INJ 1 mL IM ×2 (20:45→21:15)
[2024-12-05] MEDS: haloperidol inj 5 mg/mL INJ 1 mL IM ×2 (20:45→21:15)
--- NOTE | 2024-12-05 21:41 | PC.ADMIT ---
[address] Admission Note: The patient,Kyel Cartwright,44 y/o, was given written information regarding hospital policies, unit procedures and contact persons. Patient's smoking status: current every day smoker. Vital Signs - 8 hr 12/05/24 15:54 12/05/24 15:55 12/05/24 16:00 Temperature Pulse Rate 118 H 106 H 126 H Respiratory Rate 26 H 9 L 14 Blood Pressure 158/102 158/102 Pulse Oximetry 95 89 L 92 Oxygen Delivery Method Room Air 12/05/24 16:05 12/05/24 16:10 12/05/24 16:15 Temperature Pulse Rate 135 H 112 H 106 H Respiratory Rate Blood Pressure 180/96 180/96 Pulse Oximetry 95 90 89 L Oxygen Delivery Method 12/05/24 16:20 12/05/24 16:25 12/05/24 16:30 Temperature Pulse Rate 106 H 106 H 106 H Respiratory Rate Blood Pressure Pulse Oximetry 91 89 L 88 L Oxygen Delivery Method 12/05/24 16:35 12/05/24 16:40 12/05/24 16:45 Temperature Pulse Rate 102 H 101 H 99 Respiratory Rate Blood Pressure 130/91 130/91 124/72 Pulse Oximetry 89 L 88 L 88 L Oxygen Delivery Method 12/05/24 16:50 12/05/24 16:55 12/05/24 17:00 Temperature Pulse Rate 99 96 95 Respiratory Rate Blood Pressure 124/72 110/79 110/79 Pulse Oximetry 89 L 90 89 L Oxygen Delivery Method 12/05/24 17:05 12/05/24 17:10 12/05/24 17:15 Temperature Pulse Rate 94 93 92 Respiratory Rate Blood Pressure 118/81 118/81 118/81 Pulse Oximetry 89 L 88 L 89 L Oxygen Delivery Method 12/05/24 17:20 12/05/24 17:25 12/05/24 17:30 Temperature Pulse Rate 91 91 90 Respiratory Rate Blood Pressure 118/81 135/86 135/86 Pulse Oximetry 89 L 90 88 L Oxygen Delivery Method 12/05/24 17:35 12/05/24 17:40 12/05/24 17:45 Temperature Pulse Rate 88 85 88 Respiratory Rate 13 14 Blood Pressure 113/93 113/93 140/84 Pulse Oximetry 90 91 89 L Oxygen Delivery Method 12/05/24 17:50 12/05/24 17:55 12/05/24 18:00 Temperature Pulse Rate 88 88 88 Respiratory Rate 13 27 H 23 H Blood Pressure 140/84 118/92 118/92 Pulse Oximetry 89 L 90 91 Oxygen Delivery Method 12/05/24 18:05 12/05/24 18:10 12/05/24 18:15 Temperature Pulse Rate 89 88 88 Respiratory Rate 17 24 H 24 H Blood Pressure 116/86 116/86 138/89 Pulse Oximetry 91 91 91 Oxygen Delivery Method 12/05/24 18:20 12/05/24 18:25 12/05/24 18:30 Temperature Pulse Rate 89 87 87 Respiratory Rate 27 H 27 H 26 H Blood Pressure 138/89 124/82 124/82 Pulse Oximetry 90 91 91 Oxygen Delivery Method 12/05/24 18:45 12/05/24 19:00 12/05/24 19:15 Temperature Pulse Rate 86 86 85 Respiratory Rate 28 H 26 H 17 Blood Pressure 107/91 129/87 144/82 Pulse Oximetry 90 91 92 Oxygen Delivery Method 12/05/24 19:30 12/05/24 19:45 12/05/24 20:00 Temperature Pulse Rate 83 Respiratory Rate Blood Pressure 119/59 120/76 132/80 Pulse Oximetry 94 92 93 Oxygen Delivery Method 12/05/24 20:15 12/05/24 20:30 12/05/24 20:38 Temperature Pulse Rate 97 Respiratory Rate 22 H Blood Pressure 119/83 149/92 151/93 Pulse Oximetry 93 97 Oxygen Delivery Method 12/05/24 20:44 12/05/24 21:31 Temperature 98.2 F Pulse Rate 86 90 Respiratory Rate 22 H Blood Pressure 149/92 151/93 Pulse Oximetry 94 97 Oxygen Delivery Method Signee was in with another admit when signee heard a commotion. Security brought down this admit and he was being verbally and physically aggressive with security and staff. Pt. ripped his shirt off was cursing, posturing in an aggressive manner to security. Another managed security sales consultant was called down Issac Pt. continue to escalate and a code 10 was called at 2043. Staff members from ER, ICU, CSU came down to help. Signee pulled a B-52. Pt. was refusing to take the B-52 willingly saying he was on Suboxine and this could kill him if it was administered to him. Signee called pharmacy and checked to see if Ativan could be given with Suboxine and pharmacy said it was safe to give. Staff informed pt. with his behavior taking the injection was non nonnegotiable. Pt. then got up and said ok, lets fight went to his room and got completely naked with his arms in a boxing position. Art and Issac took pt. the bed. Signee gave Ativan and Haldol inj in the left gluteus max. RN from gave Benadryl in left thigh. Pt. said when he got up he was going to knock the shit out managed security sales consultant. Pt. was trying to head butt managed security sales consultant before pt. was let up. The restraint bed was brought into the room at 2100. because when pt. was let up he swung at Myla (managed security sales consultant). When pt. seen the restraint bed brought in he sat on the bed and stated the medication was working and he did not want to be placed in the restraint bed. at 2105 pt. said he was calm and was sitting on the bed. House sup informed pt. if pt. had any further behaviors pt. would go into the restraint bed. Pt. tested positive for Benzo and Meth. When pt. was standing naked in the room there did not appear to be any skin issues on skin, but pt. was very uncooperative.
--- NOTE | 2024-12-05 23:42 | PC.NURSE ---
when this senior grant writer was coming out of another pts room from doing their admission of changing their clothes, this pt was walking down the [address] toward day room and i asked pt was he was doing pt said he was going to get some coffee i told pt that we don't serve coffee this late. and he told me that it was down there pointing to the day room i then explained again that it was not and that he need to sit on the bench by the nurses station and i would be with him shortly. he proceed to janeth. security was still on unit he went out to find out what was going on pt began to yell and curse at him. security ask to call the other security and then shortly after the 2nd security system analyst come to unit and told staff to call a CODE 10 while everyone was on there way down. i was able to get vitals on pt but was not able to get him to sign paper work. Charge and ER nurse bhargav up meds to give to pt and he kept refusing so we asked him to go to his room pt enter room and took all his clothes off and the staff had to go hands on with pt. restraint bed was brought out but was not use Karishma [facility] told pt that they would not put him in it right know but if he still had behaviors that they would we pulled bed out of room and Chantelle and I was in room when pt put our scrubs on I then went and got pt 2 sandwiches and some punch to drink when back in about 10 to 15 mins later and pt was sleeping and has been sleeping every since
[2024-12-06] MEDS: hyDROXYzine 25 mg Capsule 50 MG PO (00:15)
[2024-12-06] MEDS: trazodone 50 mg Tablet PO (00:15)
--- NOTE | 2024-12-06 00:36 | PC.ADMIT ---
[address] Admission Note: The patient,Kyle Cartwright,44 y/o, was given written information regarding hospital policies, unit procedures and contact persons. Patient's smoking status: current every day smoker. Vital Signs - 8 hr 12/05/24 16:40 12/05/24 16:45 12/05/24 16:50 Temperature Pulse Rate 101 H 99 99 Respiratory Rate Blood Pressure 130/91 124/72 124/72 Pulse Oximetry 88 L 88 L 89 L Oxygen Delivery Method 12/05/24 16:55 12/05/24 17:00 12/05/24 17:05 Temperature Pulse Rate 96 95 94 Respiratory Rate Blood Pressure 110/79 110/79 118/81 Pulse Oximetry 90 89 L 89 L Oxygen Delivery Method 12/05/24 17:10 12/05/24 17:15 12/05/24 17:20 Temperature Pulse Rate 93 92 91 Respiratory Rate Blood Pressure 118/81 118/81 118/81 Pulse Oximetry 88 L 89 L 89 L Oxygen Delivery Method 12/05/24 17:25 12/05/24 17:30 12/05/24 17:35 Temperature Pulse Rate 91 90 88 Respiratory Rate Blood Pressure 135/86 135/86 113/93 Pulse Oximetry 90 88 L 90 Oxygen Delivery Method 12/05/24 17:40 12/05/24 17:45 12/05/24 17:50 Temperature Pulse Rate 85 88 88 Respiratory Rate 13 14 13 Blood Pressure 113/93 140/84 140/84 Pulse Oximetry 91 89 L 89 L Oxygen Delivery Method 12/05/24 17:55 12/05/24 18:00 12/05/24 18:05 Temperature Pulse Rate 88 88 89 Respiratory Rate 27 H 23 H 17 Blood Pressure 118/92 118/92 116/86 Pulse Oximetry 90 91 91 Oxygen Delivery Method 12/05/24 18:10 12/05/24 18:15 12/05/24 18:20 Temperature Pulse Rate 88 88 89 Respiratory Rate 24 H 24 H 27 H Blood Pressure 116/86 138/89 138/89 Pulse Oximetry 91 91 90 Oxygen Delivery Method 12/05/24 18:25 12/05/24 18:30 12/05/24 18:45 Temperature Pulse Rate 87 87 86 Respiratory Rate 27 H 26 H 28 H Blood Pressure 124/82 124/82 107/91 Pulse Oximetry 91 91 90 Oxygen Delivery Method 12/05/24 19:00 12/05/24 19:15 12/05/24 19:30 Temperature Pulse Rate 86 85 83 Respiratory Rate 26 H 17 Blood Pressure 129/87 144/82 119/59 Pulse Oximetry 91 92 94 Oxygen Delivery Method 12/05/24 19:45 12/05/24 20:00 12/05/24 20:15 Temperature Pulse Rate Respiratory Rate Blood Pressure 120/76 132/80 119/83 Pulse Oximetry 92 93 93 Oxygen Delivery Method 12/05/24 20:30 12/05/24 20:38 12/05/24 20:44 Temperature Pulse Rate 97 86 Respiratory Rate 22 H Blood Pressure 149/92 151/93 149/92 Pulse Oximetry 97 94 Oxygen Delivery Method 12/05/24 21:27 12/05/24 21:31 Temperature 98.2 F Pulse Rate 90 Respiratory Rate 22 H Blood Pressure 151/93 Pulse Oximetry 97 Oxygen Delivery Method Room Air Pt. ran out in front of traffic [place] and was brought in by Police and ED. In ER pt. was given Ketamine several times and placed on a restraint bed. Pt. was very aggitated and violent when brought down to the unit. Security went hands on with pt. B-52 was given. Most of pt.'s assessment was done using medical records. Pt. has been up once since things calmed down. Pt was asking for his ADHD medication and suboxine, signee let pt. know that would be due in the morning it was still HS time. Pt. did willingly take Trazodone and Vistaril, got a snack and walked down the [address] a couple times not knowing which room was his, was showed and is currently back in his room. Pt. is Positive for Benzo and meth
[2024-12-06 05:30] VITALS: RESP 16
--- NOTE | 2024-12-06 05:30 | PC.NURSE ---
pt resting did not get vitals per charge
--- NOTE | 2024-12-06 05:48 | PC.NURSE ---
Pt. currently up at nurses station requesting his Suboxone and adderal. Signee let pt. know the Suboxone was not due until 0900.
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
[2024-12-06 14:00] VITALS: BP 126/89; PULSE 76; RESP 18; TEMP 36.8; O2SAT 96
--- NOTE | 2024-12-06 14:31 | PC.NURSE ---
Suboxone held in AM med pass. Dr. Erwin had not seen pt yet and had not approved the medication.
--- NOTE | 2024-12-06 17:42 | PC.NURSE ---
Medication not given per Dr. Erwin. Still awaiting to verify the script per Dank.
[2024-12-06 20:13] VITALS: BP 146/93; PULSE 98; RESP 18; O2SAT 99
[2024-12-06] MEDS: quetiapine 300 mg Tablet 600 MG PO (21:43)
[2024-12-07 06:00] VITALS: BP 132/80; PULSE 93; RESP 18; TEMP 37; O2SAT 96; BMI 28.3
--- NOTE | 2024-12-07 11:17 | PC.NURSE ---
Pt started the morning by asking if the Dr had ordered his suboxone and aderall yet. I informed him that the Dr would have to see him today before any meds were renewed. He became upset and left the nurses station. After he finished eating I asked pt if I could do his morning assessment why, it's not going to do any good if you're not even going to give me my medications I informed pt that I don't have control of his meds being ordered that he has to see a Dr for controlled medications to be ordered or restarted. I asked pt how he slept last night, not good I don't have my medicine Can you rate your anxiety and depression for me, both are a fucking 04/17 He then started yelling at me I don't wanna fucking talk about this anymore, I'm not getting my meds, you're just a fucking bitch He walked off to his room.
[2024-12-07 14:00] VITALS: BP 124/78; PULSE 95; RESP 18; TEMP 37.1; O2SAT 97
--- NOTE | 2024-12-07 15:25 | PC.NURSE ---
Dr. Francis gave a v/o for suboxone 10/07, 2 strips to be given once now and then TID there after. He stated that he could receive another dose later this evening. I also spoke with pharmacy about the codeine allergy that pops up with the suboxone. Pharmacist stated that it would be okay since pt has been actively taking suboxone.
[2024-12-07] MEDS: buprenorphine-naloxone 4-1 mg Film 2 EACH SUBLINGUAL ×2 (16:27→21:36)
[2024-12-07] MEDS: nicotine 4 mg lozenge MUCOUS MEM (16:53)
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
[2024-12-07 20:25] VITALS: BP 133/78; PULSE 87; RESP 17; TEMP 36.6; O2SAT 95
[2024-12-07] MEDS: quetiapine 300 mg Tablet 600 MG PO (20:44)
[2024-12-08 06:00] VITALS: BP 122/80; PULSE 84; RESP 18; TEMP 36.7; O2SAT 97
[2024-12-08] MEDS: nicotine 4 mg lozenge MUCOUS MEM (07:52)
[2024-12-08] MEDS: hyDROXYzine 25 mg Capsule 50 MG PO (07:53)
[2024-12-08] MEDS: buprenorphine-naloxone 4-1 mg Film 2 EACH SUBLINGUAL (07:53)
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
[2024-12-08 13:59] VITALS: BP 122/80; PULSE 84; RESP 18; TEMP 36.7; O2SAT 97
[2024-12-08 14:24] VITALS: BP 126/76; PULSE 76; RESP 19; TEMP 36.5; O2SAT 98
== END 2024-12-08 14:28 | disposition home or self-care (01) | DRG 885 ==
LOC: ER 16:02 → NP 18:30
PROVIDERS: Admitting Provider Psychiatry & Neurology Psychiatry; Emergency Provider Emergency Medicine; PCP Family Medicine; Visit Provider Psychiatry & Neurology Psychiatry
DX: F31.9 Bipolar disorder, unspecified (principal); R45.851 Suicidal ideations; F11.21 Opioid dependence, in remission; F60.2 Antisocial personality disorder; G89.29 Other chronic pain; M54.9 Dorsalgia, unspecified; F63.81 Intermittent explosive disorder; F41.9 Anxiety disorder, unspecified; F43.10 Post-traumatic stress disorder, unspecified; F10.20 Alcohol dependence, uncomplicated; F17.220 Nicotine dependence, chewing tobacco, uncomplicated; E66.9 Obesity, unspecified; Z68.28 Body mass index [BMI] 28.0-28.9, adult
CPT/HCPCS: 36415; 80053; 80306; 80307; 85025; 96372; 97165; 99285; J0573; J1200; J1630; J2060; J3490; J9999

== ENCOUNTER 2024-12-13 22:49 | Emergency (ER) | payer MEDICAID, SELFPAY ==
[2024-12-13 22:54] VITALS: BP 152/98; PULSE 95; RESP 17; TEMP 36.6; O2SAT 98; BMI 28.8
[2024-12-13 23:21] LABS: Basophils % 0.5 %; Eosinophils # 0.1 10^3/uL (0.0-0.8); Eosinophils % 1.3 %; Hematocrit 38.9 % (37-53); Lymphocytes # 1.7 10^3/uL (0.8-4.8); Lymphocytes % 22.5 %; Mean Corpuscular HGB Conc 33.9 g/dL (30-55); Mean Corpuscular Hemoglobin 29.9 pg (27-33); Mean Platelet Volume 11.3 fL (7.4-10.4); Monocytes # 0.6 10^3/uL (0.2-0.9); Monocytes % 8.3 %; Neutrophils # 5.01 10^3/uL (1.8-7.7); Neutrophils % 67.1 %; Nucleated Red Blood Cells % 0 %; Platelet Count 145 10^3/cmm (157-399); Red Blood Count 4.42 10^6/uL (3.85-5.65); Red Cell Distribution Width 12.4 % (12.1-15.1); White Blood Count 7.47 10^3/uL (3.29-11.43)
[2024-12-13] MEDS: ketamine 100 mg/mL Inj 5 mL 250 MG IVP (23:21)
--- NOTE | 2024-12-13 23:39 | ECG_ITS ---
[facility] Test Date: 2024-12-13 Pat Name: Kyle Cartwright Department: Room: Gender: Male Gold Reclaimer: : 1980 Requested By: Akil Hein Order Number: [id number] [place] MD: SHANI TATUM Measurements Intervals [place] Rate: 91 P: 15 TX: 184 QRS: 32 QRSD: 106 T: 48 QT: 368 QTc: 454 Interpretive Statements SINUS RHYTHM Compared to ECG 11/19/2021 18:49:02 Sinus tachycardia no longer present Electronically Signed On 12-13-2024 23:48:57 CDT by SHANI TATUM [email or web address]
[2024-12-13 23:43] LABS: Alanine Aminotransferase 14 U/L (0-41); Albumin Level 4.3 g/dL (3.5-5.2); Alcohol Level 96 mg/dL (0-10); Alkaline Phosphatase 123 U/L (40-130); Anion Gap 17.1 (5-19); Aspartate Amino Transferase 18 U/L (0-40); Blood Urea Nitrogen 14 mg/dL (6-20); Carbon Dioxide 22 mmol/L (22-29); Chloride 106 mmol/L (98-107); Creatinine Clr Calc Pharmacy 134.9906; Globulin 2.7 g/dL (1.3-4.6); Glomerular Filtration Rate 81.6 mL/min (90-130); Glucose 77 mg/dL (65-115); Osmolality Calculated 291 mOsm/kg (285-295); Potassium 4.1 mmol/L (3.5-5.1); Sodium 141 mmol/L (136-145); Total Bilirubin 0.2 mg/dL (0.15-1.2)
[2024-12-13 23:47] LABS: Salicylate < 0.3 mg/dL (3-10)
--- NOTE | 2024-12-13 23:59 | W.ED.OVERDOS ---
Documented by User: Akil Knight MD 12/14/24 06:17 HPI - Overdose General: Chief Complaint: Overdose Stated Complaint: OD Time Seen by Provider: 12/13/24 23:06 History of Present Illness: Patient is a 44-year-old male brought in by law enforcement for aggressive behavior. He is unable to give a history for himself. As I enter the room there are 6 people holding him down and he is screaming and trying to bite and kick and punch them. He was placed in polyurethane restraints and given a dissociative dose of ketamine to help keep him and staff safe. At no point time was able to give a history for himself. I am uncertain of any inciting events prior to when law enforcement brought him to the emergency department. Related Data Home Medications ?Medication ?Instructions ?Recorded ?Confirmed buprenorphine 8 mg-naloxone 2 mg 1.5 tab sublingual BID 12/05/24 12/05/24 sublingual tablet dextroamphetamine-amphetamine 30 30 mg PO .@2PM 12/05/24 12/05/24 mg tablet dextroamphetamine-amphetamine ER PO 12/08/24 30 mg 24hr capsule,extend release Previous Rx's ?Medication ?Instructions ?Recorded quetiapine 300 mg tablet (Seroquel) 600 mg (2 x 300 mg) PO BEDTIME 30 12/08/24 days #60 tabs Allergies Allergy/AdvReac Type Severity Reaction Status Date / Time codeine Allergy Unknown Verified 02/20/24 20:01 ketorolac (From Toradol) Allergy ALGY-Hives Verified 02/20/24 20:01 lidocaine Allergy ALGY-Hives Verified 02/20/24 20:01 [facility]: Medical History (Updated 12/14/24 @ 06:16 by Akil Knight MD) Hepatitis Chronic back pain Depression Substance abuse Suicide attempt Intermittent explosive disorder Anxiety PTSD (post-traumatic stress disorder) Bipolar disorder Seizure disorder Suicidal ideation Alcoholism Rectal bleed IBS (irritable bowel syndrome) GI bleed Surgical History History of back surgery Social History Smoking and tobacco/nicotine status: current every day tobacco/nicotine user smokeless tobacco Smokeless tobacco user: snuff Smokeless tobacco details: 1 can/2 weeks Quit status (tobacco/nicotine): not considering quitting Second hand smoke exposure: No Current gender identity: Male Physical Exam Const: OTHER: Aggressively trying to attack staff and get out of the bed. Yelling loudly. HENMT: COMMON NORMALS: normocephalic and atraumatic HEAD & SCALP: normocephalic and atraumatic Eye: COMMON NORMALS: Equal, round and reactive pupils present, EOMs intact bilaterally and no scleral icterus PUPIL: Yes Equal, round and reactive pupils present Resp: COMMON NORMALS: normal respiratory effort and No retractions Cardio: COMMON NORMALS: regular rate, regular rhythm and No murmurs present (Cardio) RATE: regular rate RHYTHM: regular rhythm GI: COMMON NORMALS: Normal to inspection, nondistended, normoactive bowel sounds present, Soft to palpation and non-tender PALPATION: Yes Soft to palpation Neuro: OTHER: Moves all extremities moves all extremity spontaneously with no obvious lateralizing deficits. Alert. Agitated. Disoriented. Psych: OTHER: Altered, aggressive, not answering questions or interacting rationally. Skin: COMMON NORMALS: no rashes or lesions noted GENERAL SKIN EXAM: no rashes or lesions noted Course Vital Signs: Vital signs: Vital Signs Temperature 97.8 F 12/13/24 22:54 Pulse Rate 89 12/14/24 08:45 Respiratory Rate 16 12/14/24 05:58 Blood Pressure 129/91 12/14/24 08:45 Pulse Oximetry 95 12/14/24 08:45 Oxygen Delivery Me thod Room Air 12/14/24 05:58 MDM - Overdose Medical Decision Making In summary, patient is a 44-year-old male seen for aggressive behavior who initially pose a threat to himself and to staff and thus was chemically sedated and for short time manually restrained. As soon as the situation was safe, manual strings were removed and patient was observed in the emergency department through the night as he slept. Drug screen is positive for multiple entities and alcohol level somewhat elevated. Plan is for him to be discharged as soon as he metabolizes adequately. Pertinent details of the case were shared for oncoming emergency physician who will help us ultimate ultimate disposition once he has adequate metabolized and can walk without difficulty. As he has regained mental status, he currently denies SI or HI or hallucinations and I do not feel he would benefit from psychiatric consultation at this time Lab Data 12/13/24 23:10 12/13/24 23:10 Laboratory Results WBC 7.47 10^3/uL (3.29-11.43) 12/13/24 23:10 RBC 4.42 10^6/uL (3.85-5.65) 12/13/24 23:10 Hgb 13.20 g/dL (11.27-16.99) 12/13/24 23:10 Hct 38.9 % (37-53) 12/13/24 23:10 MCV 88.0 fl (82-101) 12/13/24 23:10 MCH 29.9 pg (27-33) 12/13/24 23:10 MCHC 33.9 g/dL (30-55) 12/13/24 23:10 RDW 12.4 % (12.1-15.1) 12/13/24 23:10 Plt Count 145 10^3/cmm (157-399) L 12/13/24 23:10 MPV 11.3 fL (7.4-10.4) H 12/13/24 23:10 Neut % (Auto) 67.1 % 12/13/24 23:10 Lymph % (Auto) 22.5 % 12/13/24 23:10 [place] % (Auto) 8.3 % 12/13/24 23:10 Eos % (Auto) 1.3 % 12/13/24 23:10 Baso % (Auto) 0.5 % 12/13/24 23:10 Neut # (Auto) 5.01 10^3/uL (1.8-7.7) 12/13/24 23:10 Lymph # (Auto) 1.7 10^3/uL (0.8-4.8) 12/13/24 23:10 [place] # (Auto) 0.6 10^3/uL (0.2-0.9) 12/13/24 23:10 Eos # (Auto) 0.1 10^3/uL (0.0-0.8) 12/13/24 23:10 Baso # (Auto) 0.0 10^3/uL (0.0-0.1) 12/13/24 23:10 Nucleated RBC % (auto) 0 % 12/13/24 23:10 Nucleated RBCs # 0.0 /100WBC 12/13/24 23:10 Sodium 141 mmol/L (136-145) 12/13/24 23:10 Potassium 4.1 mmol/L (3.5-5.1) 12/13/24 23:10 Chloride 106 mmol/L (98-107) 12/13/24 23:10 Carbon Dioxide 22 mmol/L (22-29) 12/13/24 23:10 Anion Gap 17.1 (5-19) 12/13/24 23:10 BUN 14 mg/dL (6-20) 12/13/24 23:10 Creatinine 1.0 mg/dL (0.7-1.2) 12/13/24 23:10 GFR Calculation 81.6 mL/min (90-130) L 12/13/24 23:10 Glucose 77 mg/dL (65-115) 12/13/24 23:10 Calculated Osmolality 291 mOsm/kg (285-295) 12/13/24 23:10 Calcium 9.0 mg/dL (8.5-10.5) 12/13/24 23:10 Total Bilirubin 0.2 mg/dL (0.15-1.2) 12/13/24 23:10 AST 18 U/L (0-40) 12/13/24 23:10 ALT 14 U/L (0-41) 12/13/24 23:10 Alkaline Phosphatase 123 U/L (40-130) 12/13/24 23:10 Total Protein 7.0 g/dL (6.6-8.7) 12/13/24 23:10 Albumin 4.3 g/dL (3.5-5.2) 12/13/24 23:10 Globulin 2.7 g/dL (1.3-4.6) 12/13/24 23:10 Urine Color Yellow (Yellow) 12/14/24 00:27 Urine Appearance Clear (CLEAR) 12/14/24 00: Urine pH 7.0 (5-7) 12/14/24 00: Ur Specific Gilbert 1.011 (1.005-1.030) 12/14/24 00:27 Urine Protein Negative (Negative) 12/14/24 00: Urine Glucose (UA) Negative (Normal) 12/14/24 00: Urine Ketones Negative (Negative) 12/14/24 00:27 Urine Blood Negative (Negative) 12/14/24 00:27 Urine Nitrate Negative (Negative) 12/14/24 00:27 Urine Bilirubin Negative (Negative) 12/14/24 00:27 Urine Urobilinogen 0.2 mg/dL (Negative) 12/14/24 00:27 Ur Leukocyte Esterase Negative (Negative) 12/14/24 00:27 Urine RBC 0-2 /hpf (0-2) 12/14/24 00:27 Urine WBC 0-5 /hpf (0-5) 12/14/24 00:27 Ur Squamous Epith Cells 0-5 /hpf (0-5) 12/14/24 00:27 Amorphous Sediment Not Reportable 12/14/24 00:27 Urine Bacteria None seen /hpf (NONE) 12/14/24 00:27 Hyaline Casts 0-4 /lpf H 12/14/24 00:27 Salicylates < 0.3 mg/dL (3-10) L 12/13/24 23:10 Urine Opiates Screen Negative ng/mL (Negative) 12/14/24 00:27 Ur Barbiturates Screen Negative ng/mL (Negative) 12/14/24 00:27 Ur Phencyclidine Scrn Negative ng/mL (Negative) 12/14/24 00:27 Ur Amphetamines Screen Positive ng/mL (Negative) H 12/14/24 00:27 U Benzodiazepines Scrn Positive ng/mL (Negative) H 12/14/24 00:27 Urine Cocaine Screen Negative ng/mL (Negative) 12/14/24 00:27 U Marijuana (THC) Screen Negative ng/mL (Negative) 12/14/24 00:27 Ethyl Alcohol 96 mg/dL (0-10) H 12/13/24 23:10 No radiology studies performed this visit EKG Data EKG 1: Other EKG comments: Time?2339?sinus rhythm, rate of 91, no ST segment elevation or depression, no T wave inversions, intervals within normal limits. QTc = 417 Discharge Plan Discharge Patient Disposition: Home Clinical Impression: Multiple drug overdose Condition: Stable Prescriptions: No Action dextroamphetamine-amphetamine 30 mg tablet 30 mg PO .@2PM buprenorphine-naloxone 8-2 mg tablet, sublingual 1.5 tab SUBLINGUAL BID quetiapine [Seroquel] 300 mg tablet 600 mg PO BEDTIME 30 Days Qty: 60 1RF dextroamphetamine-amphetamine 30 mg capsule,extended release 24hr PO Discharge Orders: Discharge ED (Routine); Ordered 12/14/24 Ordered By: Mar Black Referrals: Akil Ordoñez [Primary Care Provider, [facility]] Discharge Diet: Advance as tolerated Discharge Activity: Resume usual activity Patient Instructions: Narcotic Safety (ED) Activity Restrictions/Additional Instructions: Don't do drugs. Print Language: Syrian Coding Level of Care Code ED Manufacturing Operator for Chg Fwd Documented by User: Mar Black MD 12/14/24 08:56 HPI - Overdose General: Chief Complaint: Overdose Stated Complaint: OD Time Seen by Provider: 12/13/24 23:06 Related Data Home Medications ?Medication ?Instructions ?Recorded ?Confirmed buprenorphine 8 mg-naloxone 2 mg 1.5 tab sublingual BID 12/05/24 12/05/24 sublingual tablet dextroamphetamine-amphetamine 30 30 mg PO .@2PM 12/05/24 12/05/24 mg tablet dextroamphetamine-amphetamine ER PO 12/08/24 30 mg 24hr capsule,extend release Previous Rx's ?Medication ?Instructions ?Recorded quetiapine 300 mg tablet (Seroquel) 600 mg (2 x 300 mg) PO BEDTIME 30 12/08/24 days #60 tabs Allergies Allergy/AdvReac Type Severity Reaction Status Date / Time codeine Allergy Unknown Verified 02/20/24 20:01 ketorolac (From Toradol) Allergy ALGY-Hives Verified 02/20/24 20:01 lidocaine Allergy ALGY-Hives Verified 02/20/24 20:01 [facility] ED [facility]: Medical History (Updated 12/14/24 @ 06:16 by Akil Knight MD) Hepatitis Chronic back pain Depression Substance abuse Suicide attempt Intermittent explosive disorder Anxiety PTSD (post-traumatic stress disorder) Bipolar disorder Seizure disorder Suicidal ideation Alcoholism Rectal bleed IBS (irritable bowel syndrome) GI bleed Surgical History History of back surgery Social History Smoking and tobacco/nicotine status: current every day tobacco/nicotine user smokeless tobacco Smokeless tobacco user: snuff Smokeless tobacco details: 1 can/2 weeks Quit status (tobacco/nicotine): not considering quitting Second hand smoke exposure: No Current gender identity: Male Course Vital Signs: Vital signs: Vital Signs Temperature 97.8 F 12/13/24 22:54 Pulse Rate 89 12/14/24 08:45 Respiratory Rate 16 12/14/24 05:58 Blood Pressure 129/91 12/14/24 08:45 Pulse Oximetry 95 12/14/24 08:45 Oxygen Delivery Me thod Room Air 12/14/24 05:58 MDM - Overdose Medical Decision Making In summary, patient is a 44-year-old male seen for aggressive behavior who initially pose a threat to himself and to staff and thus was chemically sedated and for short time manually restrained. As soon as the situation was safe, manual strings were removed and patient was observed in the emergency department through the night as he slept. Drug screen is positive for multiple entities and alcohol level somewhat elevated. Plan is for him to be discharged as soon as he metabolizes adequately. Pertinent details of the case were shared for oncoming emergency physician who will help us ultimate ultimate disposition once he has adequate metabolized and can walk without difficulty. As he has regained mental status, he currently denies SI or HI or hallucinations and I do not feel he would benefit from psychiatric consultation at this time Patient is now awake ambulatory stable for discharge Lab Data 12/13/24 23:10 12/13/24 23:10 Laboratory Results WBC 7.47 10^3/uL (3.29-11.43) 12/13/24 23:10 RBC 4.42 10^6/uL (3.85-5.65) 12/13/24 23:10 Hgb 13.20 g/dL (11.27-16.99) 12/13/24 23:10 Hct 38.9 % (37-53) 12/13/24 23:10 MCV 88.0 fl (82-101) 12/13/24 23:10 MCH 29.9 pg (27-33) 12/13/24 23:10 MCHC 33.9 g/dL (30-55) 12/13/24 23:10 RDW 12.4 % (12.1-15.1) 12/13/24 23:10 Plt Count 145 10^3/cmm (157-399) L 12/13/24 23:10 MPV 11.3 fL (7.4-10.4) H 12/13/24 23:10 Neut % (Auto) 67.1 % 12/13/24 23:10 Lymph % (Auto) 22.5 % 12/13/24 23:10 [place] % (Auto) 8.3 % 12/13/24 23:10 Eos % (Auto) 1.3 % 12/13/24 23:10 Baso % (Auto) 0.5 % 12/13/24 23:10 Neut # (Auto) 5.01 10^3/uL (1.8-7.7) 12/13/24 23:10 Lymph # (Auto) 1.7 10^3/uL (0.8-4.8) 12/13/24 23:10 [place] # (Auto) 0.6 10^3/uL (0.2-0.9) 12/13/24 23:10 Eos # (Auto) 0.1 10^3/uL (0.0-0.8) 12/13/24 23:10 Baso # (Auto) 0.0 10^3/uL (0.0-0.1) 12/13/24 23:10 Nucleated RBC % (auto) 0 % 12/13/24 23:10 Nucleated RBCs # 0.0 /100WBC 12/13/24 23:10 Sodium 141 mmol/L (136-145) 12/13/24 23:10 Potassium 4.1 mmol/L (3.5-5.1) 12/13/24 23:10 Chloride 106 mmol/L (98-107) 12/13/24 23:10 Carbon Dioxide 22 mmol/L (22-29) 12/13/24 23:10 Anion Gap 17.1 (5-19) 12/13/24 23:10 BUN 14 mg/dL (6-20) 12/13/24 23:10 Creatinine 1.0 mg/dL (0.7-1.2) 12/13/24 23:10 GFR Calculation 81.6 mL/min (90-130) L 12/13/24 23:10 Glucose 77 mg/dL (65-115) 12/13/24 23:10 Calculated Osmolality 291 mOsm/kg (285-295) 12/13/24 23:10 Calcium 9.0 mg/dL (8.5-10.5) 12/13/24 23:10 Total Bilirubin 0.2 mg/dL (0.15-1.2) 12/13/24 23:10 AST 18 U/L (0-40) 12/13/24 23:10 ALT 14 U/L (0-41) 12/13/24 23:10 Alkaline Phosphatase 123 U/L (40-130) 12/13/24 23:10 Total Protein 7.0 g/dL (6.6-8.7) 12/13/24 23:10 Albumin 4.3 g/dL (3.5-5.2) 12/13/24 23:10 Globulin 2.7 g/dL (1.3-4.6) 12/13/24 23:10 Urine Color Yellow (Yellow) 12/14/24 00: Urine Appearance Clear (CLEAR) 12/14/24 00: Urine pH 7.0 (5-7) 12/14/24 00: Ur Specific Gilbert 1.011 (1.005-1.030) 12/14/24 00: Urine Protein Negative (Negative) 12/14/24 00: Urine Glucose (UA) Negative (Normal) 12/14/24 00: Urine Ketones Negative (Negative) 12/14/24 00: Urine Blood Negative (Negative) 12/14/24 00: Urine Nitrate Negative (Negative) 12/14/24 00: Urine Bilirubin Negative (Negative) 12/14/24 00: Urine Urobilinogen 0.2 mg/dL (Negative) 12/14/24 00: Ur Leukocyte Esterase Negative (Negative) 12/14/24: Urine RBC 0-2 /hpf (0-2) 12/14/24 00: Urine WBC 0-5 /hpf (0-5) 12/14/24 00: Ur Squamous Epith Cells 0-5 /hpf (0-5) 12/14/24 00: Amorphous Sediment Not Reportable 12/14/24 00:27 Urine Bacteria None seen /hpf (NONE) 12/14/24 00:27 Hyaline Casts 0-4 /lpf H 12/14/24 00:27 Salicylates < 0.3 mg/dL (3-10) L 12/13/24 23:10 Urine Opiates Screen Negative ng/mL (Negative) 12/14/24 00:27 Ur Barbiturates Screen Negative ng/mL (Negative) 12/14/24 00:27 Ur Phencyclidine Scrn Negative ng/mL (Negative) 12/14/24 00:27 Ur Amphetamines Screen Positive ng/mL (Negative) H 12/14/24 00:27 U Benzodiazepines Scrn Positive ng/mL (Negative) H 12/14/24 00:27 Urine Cocaine Screen Negative ng/mL (Negative) 12/14/24 00:27 U Marijuana (THC) Screen Negative ng/mL (Negative) 12/14/24 00:27 Ethyl Alcohol 96 mg/dL (0-10) H 12/13/24 23:10 Discharge Plan Discharge Patient Disposition: Home Clinical Impression: Multiple drug overdose Condition: Stable Prescriptions: No Action dextroamphetamine-amphetamine 30 mg tablet 30 mg PO .@2PM buprenorphine-naloxone 8-2 mg tablet, sublingual 1.5 tab SUBLINGUAL BID quetiapine [Seroquel] 300 mg tablet 600 mg PO BEDTIME 30 Days Qty: 60 1RF dextroamphetamine-amphetamine 30 mg capsule,extended release 24hr PO Discharge Orders: Discharge ED (Routine); Ordered 12/14/24 Ordered By: Mar Black Referrals: Akil Ordoñez [Primary Care Provider, [facility]] Discharge Diet: Advance as tolerated Discharge Activity: Resume usual activity Patient Instructions: Narcotic Safety (ED) Activity Restrictions/Additional Instructions: Don't do drugs. Print Language: Syrian Coding Level of Care Code ED Manufacturing Operator for Edmond Hwang
[2024-12-14 01:09] LABS: Bilirubin Urine Negative (Negative); Blood Urine Negative (Negative); Glucose Urine UA Negative (Normal); Ketones Urine Negative (Negative); Leukocyte Esterase Urine Negative (Negative); Nitrate Urine Negative (Negative); Protein Urine Negative (Negative); Specific Gravity, Urine 1.011 (1.005-1.030); Urine Appearance Clear (CLEAR); Urine Color Yellow (Yellow); Urobilinogen Urine 0.2 mg/dL (Negative)
[2024-12-14 01:14] LABS: Add Urine Microscopic? YES; Bacteria Urine None Seen /hpf; Hyaline Casts Urine 0-4 /lpf; RBC Urine 0-2 /hpf (0-2); Squamous Epithelial Cell Urine 0-5 /hpf (0-5); WBC Urine 0-5 /hpf (0-5)
[2024-12-14 01:15] LABS: Amphetamines Screen Urine Positive (Negative); Barbiturates Screen Urine Negative (Negative); Benzodiazepines Screen Urine Positive (Negative); Cocaine Screen Urine Negative (Negative); Opiate Screen Urine Negative (Negative); PCP Screen Urine Negative (Negative); THC Screen Urine Negative (Negative)
--- NOTE | 2024-12-14 03:04 | PC.NURSE ---
pt restraints removed at [address] Knight, pt was found sitting on the floor at 0210 and assisted back in to the bed. pt examined for injuries no new contusion or abrasions noted at this time MD and data warehouse developer aware. 1:1 sitter assigned at 0225 after attempt to reoriented was minimally successful.
[2024-12-14 05:58] VITALS: BP 147/68; PULSE 86; RESP 16; O2SAT 98
--- NOTE | 2024-12-14 06:58 | PC.NURSE ---
ASSUMED CARE OF PT FROM HÉCTOR ZHONG @[id number].
[2024-12-14 08:45] VITALS: BP 129/91; PULSE 89; O2SAT 95
== END 2024-12-14 08:53 | disposition home or self-care (01) ==
PROVIDERS: Student in an Organized Health Care Education/Training Program; Emergency Provider Emergency Medicine; PCP Family Medicine
DX: T50.911A Poisoning by multiple unspecified drugs, medicaments and biological substances, accidental (unintentional), initial encounter (principal); X58.XXXA Exposure to other specified factors, initial encounter; F17.290 Nicotine dependence, other tobacco product, uncomplicated
CPT/HCPCS: 51701; 80053; 80306; 80307; 81001; 85025; 93005; 96374; 99284; J3490

== ENCOUNTER 2025-04-26 23:16 | Inpatient (IN) | payer MEDICAID, SELFPAY ==
[2025-04-26 23:19] VITALS: BP 137/92; PULSE 96; RESP 18; TEMP 36.4; O2SAT 96
--- NOTE | 2025-04-26 23:20 | CTR_ITS ---
PROCEDURE INFORMATION: Exam: CT Head Without Contrast Exam date and time: 04/27/2025 1:57 AM Age: 44 years old Clinical indication: Injury or trauma; Blunt trauma (contusions or hematomas); Fall with head strike TECHNIQUE: Imaging protocol: Computed tomography of the head without contrast. Radiation optimization: All CT scans at this facility use at least one of these dose optimization techniques: automated exposure control; mA and/or kV adjustment per patient size (includes targeted exams where dose is matched to clinical indication); or iterative reconstruction. COMPARISON: CT head wo con* [id number] 04/07/2023 2:14 AM RADIATION DOSE METRICS: Total DLP (mGy-cm): 1144.54 FINDINGS: Brain: Normal. No hemorrhage. Unremarkable white matter. No mass effect. Cerebral ventricles: No ventriculomegaly. Paranasal sinuses: Visualized sinuses are unremarkable. No fluid levels. Mastoid air cells: Visualized mastoid air cells are well aerated. Bones: Unremarkable. No acute fracture. Soft tissues: Unremarkable. CT/CT head wo con* [id number] IMPRESSION: Negative for intracranial hemorrhage. No identified acute intracranial pathology.
--- NOTE | 2025-04-26 23:20 | ECG_ITS ---
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 Measurements Intervals [place] Rate: 112 P: 35 WV: 167 QRS: 29 QRSD: 106 T: 44 QT: 348 QTc: 476 Interpretive Statements SINUS TACHYCARDIA ABNORMAL RHYTHM ECG Compared to ECG 12/13/2024 23:39:26 Sinus rhythm no longer present Electronically Signed On 04-28-2025 19:24:52 CDT by Liliya Galaviz M.D. [email or web address]
--- OUTSIDE RECORDS SUMMARY | 2025-04-26 23:23 | XMS_ITS | Clinical Summary ---
Author Organization [facility] Address [address] [place] [address] Phone Care Team Providers Care Outside Food Server Name Role Phone Unavailable Primary Care Provider Unavailabl e Allergies No known active allergies Medications citalopram (CeleXA) 40 mg tabletIndication s:anxiety with depression Take 40 mg by mouth 1 (one) time each day. Active cloNIDine (Catapres) 0.2 mg tabletIndication s:hypertension Take 0.2 mg by mouth 3 (three) times a day. Active hydrOXYzine pamoate (Vistaril) 25 mg capsuleIndicatio ns:anxiety Take 25 mg by mouth 3 (three) times a day if needed for itching. Active QUEtiapine (SEROquel) 300 mg tabletIndication s:mood Take 600 mg by mouth every night. Active metoprolol tartrate (Lopressor) 50 mg tabletIndication s:hypertension Take 1 tablet (50 mg total) by mouth 2 (two) times a day. 60 tablet 05/26/2020 Active busPIRone (Buspar) 10 mg tabletIndication s:generalized anxiety disorder Take 1 tablet (10 mg total) by mouth 3 (three) times a day. 90 tablet 05/26/2020 Active levETIRAcetam (Keppra) 500 mg tabletIndication s:tonic-clonic epilepsy treatment adjunct Take 1 tablet (500 mg total) by mouth 2 (two) times a day. 60 tablet 05/26/2020 Active Active Problems No known active problems Resolved Problems Problem Noted Date Diagnosed Date Resolved Date Depression 05/25/2020 05/26/2020 Family History Medical History Relation Comments No Known Problems Brother No Known Problems Father No Known Problems Father's Brother No Known Problems Father's Sister No Known Problems Maternal Grandfather No Known Problems Maternal Grandmother No Known Problems Mother No Known Problems Mother's Brother No Known Problems Mother's Sister No Known Problems Other No Known Problems Paternal Grandfather No Known Problems Paternal Grandmother No Known Problems Sister ADD / ADHD Neg Hx Alcohol abuse Neg Hx Anxiety disorder Neg Hx Bipolar disorder Neg Hx Dementia Neg Hx Depression Neg Hx Drug abuse Neg Hx OCD Neg Hx Paranoid behavior Neg Hx Schizophrenia Neg Hx Seizures Neg Hx Self-Injury Neg Hx Suicide Attempts Neg Hx Relation Status Comments Brother Father Father's Brother Father's Sister Maternal Grandfather Maternal Grandmother Mother Mother's Brother Mother's Sister Other Paternal Grandfather Paternal Grandmother Sister Social History Tobacco Use Types Packs/Day Years Used Date Smoking Tobacco: Every Day Cigarettes Smokeless Tobacco: Never Tobacco Cessation:Ready to Q uit: No Alcohol Use Standard Drinks/Week Comments Not Currently 0 (1 standard drink = 0.6 oz pur e alcohol) denies drinking AUDIT-C Answer Date Recorded Q1: How often do you have a drink containing alc ohol? Never 05/25/2020 Average Number of Drinks Not on file 020 Frequency of Binge Drinking Not on file 05/09 Sex and Gender Information Value Date Recorded Sex Assigned at Not on file Legal Sex Male 11:01 AM CDT Gender Identity Not on file Sexual Orientation Not on file Last Filed Vital Signs Vital Sign Reading Time Taken Comments Blood Pressure 154/103 05/26/2020 4:00 PM SENIOR CENTER DIRECTOR Pulse 96 05/26/2020 4:00 PM SENIOR CENTER DIRECTOR Temperature 36.3 C (97.4 F) 05/26/2020 3:51 PM SENIOR CENTER DIRECTOR Respiratory Rate 17 05/26/2020 3:51 PM SENIOR CENTER DIRECTOR Oxygen Saturation 95% 05/26/2020 3:51 PM SENIOR CENTER DIRECTOR Inhaled Oxygen Concentration - - Weight 123 kg (271 lb 6.2 oz) 05/25/2020 10:29 A M SENIOR CENTER DIRECTOR Height 195.6 cm (6' 5 ) 05/25/2020 10:29 AM SENIOR CENTER DIRECTOR Body Mass Index 32.18 05/25/2020 10:29 AM SENIOR CENTER DIRECTOR Plan of Treatment Health Maintenance Due Date Last Done Comments Lipid Panel 1980 MMR Vaccines (1 of 1 - Standard series) 1982 Varicella Vaccines (1 of 2 - 13+ 2-dose series) 1994 Depression Screening 09/26/1999 Social Drivers of Health (Press-senseME) 09/26/1999 Hepatitis B Vaccines (1 of 3 - 19+ 3-dose series) 2000 HPV Vaccines (1 - 3-dose SCD M series) 2008 DTaP,Tdap,and Td Vaccines (2 - Td or Tdap) 06/05/2015 05/08/2015 COVID-19 Vaccine (1 - 4-2 5 season) 2025 Influenza Vaccine (#1) 2025 0, 03/01/2020, 04/29/2019 Pneumococcal Vaccine: 50+ Years (1 of 1 - PCV) 09/26/2031 Zoster Vaccines (1 of 2) 09/26/2031 RSV Vaccines (1 - 1-dose 75+ series) 2056 HIB Vaccines Aged Out No longer eligi ble based on patient's age to complete this topic Hepatitis A Vaccines Aged Out No long er eligible based on patient's age to complete this topic IPV Vaccines Aged Out No longer eligi ble based on patient's age to complete this topic Meningococcal B Vaccine Aged Out No l onger eligible based on patient's age to complete this topic Meningococcal Vaccine Aged Out No nikky fritz eligible based on patient's age to complete this topic Pneumococcal Vaccine Aged Out No long er eligible based on patient's age to complete this topic Rotavirus Vaccines Aged Out No longer eligible based on patient's age to complete this topic Insurance [employer] Directives For more information, please contact: [phone] (7:30 AM - 5PM [facility], 7 days a week) * Full Code (Latest Code Status on File) Date Activated Date Inactivated Comments 05/25/2020 10:26 AM 05/26/2020 6:26 PM
--- OUTSIDE RECORDS SUMMARY | 2025-04-26 23:23 | XMS_ITS | Encounter Summary ---
Author Organization [facility] Address 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 No 06/08/2020 Within the last year, have y ou been humiliated or emotionally abused in other ways by your partner or ex-partner? No Within the last year, have y ou been kicked, hit, slapped, or otherwise physically hurt by your partner or ex-partner? No 06/08/2020 Within the last year, have y ou been raped or forced to have any kind of sexual activity by your partner or ex-partner? No 06/08/2020 Social Connections Answer Date Recorded In a typical week, how many times do you talk on the phone with family, friends, or neighbors? More than three times a week 06/08/2020 How often do you get togethe r with friends or relatives? Once a week 06/08/2020 How often do you attend chur or cheondoism services? Never 06/08/2020 Do you belong to any clubs o r organizations such as roman catholic groups, unions, fraternal or athletic groups, or school groups? Yes 06/08/2020 How often do you attend meet ings of the clubs or organizations you belong to? More than 4 times per year 06/08/2020 Are you , , di vorced, , never , or living with a partner? 06/08/2020 Financial Resource Strain Answer Date R ecorded How hard is it for you to pa y for the very basics like food, housing, medical care, and heating? Not hard at all 06/08/2020 Food Insecurity Answer Date Recorded Within the past 12 months, y ou worried that your food would run out before you got the money to buy more. Patient declined Within the past 12 months, t he food you bought just didn't last and you didn't have money to get more. Patient declined 07/2019 Transportation Needs Answer Date Record ed In the past 12 months, has l ack of transportation kept you from medical appointments or from getting medications? Patient declined 06/08/2020 In the past 12 months, has l ack of transportation kept you from meetings, work, or from getting things needed for daily living? Patient declined 06/08/2020 Feeling Safe Answer Date Recorded Are you in a relationship wi th someone who hurts you emotionally and/or physically? No 03/25/2025 Food Insecurity Answer Date Recorded Patient needs follow up regardin 11/11/2024 Transportation Needs Answer Date Record ed Patient needs follow up regardin 11/11/2024 Housing Stability Answer Date Recorded Social/Environmental Concerns No concerns Utility Needs Answer Date Recorded Patient needs follow up regardin 11/11/2024 Sex and Gender Information Value Date Recorded Sex Assigned at Not on file Legal Sex Male 6:23 AM [employer] PROC[employer]OR Gender Identity Not on file Sexual Orientation Not on file documented as of this encounter Plan of Treatment Not on file documented as of this encounter Visit Diagnoses Not on filedocumented in this encounter 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
--- OUTSIDE RECORDS SUMMARY | 2025-04-26 23:23 | XMS_ITS | Continuity of Care Document ---
Author Organization [facility] Address [address] [place] [address] Care Team Providers Care Perishable Freight Inspector Name Role Phone AUSTIN LILLY Community Health Worker Assessment Encounter Date Assessment Date Assessment LastModified by Organization Details LastModified Time 04/23/2025 04/23/2025 Treatment Summary: Started [facility] MAT program 04/03/24 He was on suboxone on and off for about 12 years He had been going to ER to gets enough to last for a week and tried to spread it out as long as he could until he found this program. Last use was heroin, snorting it 03/29/24 He has been on buprenorphine from the hospital ER. 2012 took suboxone for 3 years then the doctor quit and he got off it. Then was back on for a year and his doctor was arrested, so he was off a while. Then got back on about 2 years ago. He states he just had some troubles with finding providers. He was on 24 mg max. 12/25/24 He has done well in MAT program. He had one UDS negative for Adderall 06/04/24 after starting this, and was not able to come in until 07/31/24, but has been consistent since then. BUP has been consistently positive and OPIOIDS negative. Routine wellness/ Pending follow ups: Last visit with collaborative physician: March 11, 2025 Annual labs [email or web address] Not available 04/23/2025 12:58:39 Plan of Treatment Reminders Order Date Submit Date Provider Last Modified By Organization Details Last Modified Time Details Appointments MAT 15 2024 09:15A Janine HOUSTON NP Not available Not available Not available Lab drug screen, urine - Includes the following : Alcohol Panel Amphetami mervat/Metha mphetamin es Panel Barbitura ashwini Panel Benzodiaz epines Panel Illicit Substance s Panel Novel Illicit Benzodiaz epines & Opioids Panel Opiates Panel Opioids Panel Opioids Related Panel Stimulant s Panel Novel Psychoact pineda Substance s Panel Carisopro dol (soma) Dextromet horphan Gabapenti n (Neuronti n) Ketamine Pregabali n (Lyrica) Zolpidem (Ambien) Specimen Validity 2024 [facility], [address] [place], [address], 04/23/2025 13:14:26 Referral None recorded. Procedures None recorded. Surgeries None recorded. Imaging None recorded. Medication Orders buprenorp ramy 8 mg-naloxo ne 2 mg sublingua l tablet 2024 [facility], [address] [place] [address], [id number], 04/24/2025 10:46:00 Adderall XR 30 mg capsule,e xtended release 2024 [facility], [address] [place] [address], [id number], 04/24/2025 10:45:59 Patient TargetsNo targets recorded. Patient Instructions Encounter Date Encounter Id Patient Instructions Last Modified By Organization Details Last Modified Time 04/23/2025 [id number] heart-healthy diet: care instructions [email or web address] Not available 04/23/2025 13:02:16 walking for exercise: care instructions [email or web address] Not available 04/23/2025 13:02:16 high blood pressure: care instructions Not available 04/23/2025 13:02:17 learning about high blood pressure [email or web address] Not available 04/23/2025 13:02:16 body mass index: care instructions [email or web address] Not available 04/23/2025 13:02:17 learning about healthy weight [email or web address] Not available 04/23/2025 13:02:17 Reason for Referral None Reported. Problems Name Problem SNOMED Code Status Onset Date Resolution Date Notes Provider Name and Address Organization Details Recorded Time Opioid dependence 58164490 Active 2023 MARILEE HOUSTON NP [address], [address], [facility] 4 16:07:43 Chronic post-traumatic stress disorder 640767957 Active 2024 BRANDT GARCIA NP [address], [address], [facility] 5 12:50:16 Attention deficit hyperactivity disorder, predominantly hyperactive impulsive type 0671423 Active 2024 BRANDT GARCIA NP [address], [address], [facility] 5 13:00:11 Generalized anxiety disorder 79482829 Active 2024 BRANDT GARCIA NP [address], [address], [facility] 5 13:00:20 Attention deficit hyperactivity disorder 781136838 Active 2024 MARILEE HOUSTON NP [address], [address], [facility] 5 09:33:42 Problem Notes None recorded. Procedures Surgical History Date Name Laterality Status Provider Name and Address Organization Details Recorded Time excision of lipoma completed Alma [facility] 05/01/2024 11:40:53 Imaging Results None recorded. Procedure Notes None recorded. Medical Equipment None Reported. Allergies No known drug allergies Medications Name Sig Start Date Stop Date Status Note LastModified by Organization Details LastModified Time clonidine HCl 0.1 mg tablet 07/24 completed Not Available Not Available Not Available quetiapine 300 mg tablet TAKE 2 TABLETS BY MOUTH EVERY DAY AT BEDTIME active Not Available Not Available No t Available dextroamphe tamine-amph etamine 10 mg tablet TAKE 2 TABLETS BY MOUTH DAILY AT 2 PM 07/31 completed Not Available Not Available Not Available sertraline 100 mg tablet 04/03 completed Not Available Not Available Not Available Debrox 6.5 % ear drops INSTILL 5 DROPS INTO AFFECTED EAR(S) BY OTIC ROUTE 2 TIMES PER DAY 08/28 completed Not Available Not Available Not Available Adderall XR 20 mg capsule,ext ended release Take 1 capsule every day by oral route. 06/04 completed Not Available Not Available Not Available dextroamphe tamine-amph etamine 30 mg tablet TAKE 1 TABLET BY MOUTH DAILY AT 2 PM 03/11 completed Not Available Not Available Not Available oxycodone-a cetaminophe n 5 mg-325 mg tablet TAKE 1 TABLET BY MOUTH EVERY 8 HOURS NEEDED FOR PAIN 04/03 completed Not Available Not Available Not Available cephalexin 500 mg capsule 04/03 completed Not Available Not Available Not Available trazodone 150 mg tablet 04/03 completed Not Available Not Available Not Available dextroamphe tamine-amph etamine 20 mg tablet TAKE 1 TABLET BY MOUTH AT 2 IN THE EVENING 09/25 completed Not Available Not Available Not Available lisinopril 10 mg tablet Take 1 tablet every day by oral route. 2024 active Not Available Not Available Not Avai lable prednisone 50 mg tablet Take 1 tablet every day by oral route for 5 days. 03/10 completed Not Available Not Available Not Available lisinopril 5 mg tablet 04/03 completed Not Available Not Available Not Available dextroamphe tamine-amph etamine ER 30 mg 24hr capsule,ext end release take 1 capsule BY MOUTH TWICE DAILY FOR 28 DAYS FOR adhd active Not Available Not Available No t Available buprenorphi ne 8 mg-naloxone 2 mg sublingual tablet dissolve TAKE 1 & 1/2 TABLETS UNDER THE TONGUE TWICE DAILY active Not Available Not Available No t Available Suboxone 8 mg-[address] 1 FILM UNDER THE TONGUE DAILY 04/03 completed Not Available Not Available Not Available naloxone 4 mg/actuatio n nasal spray 1 actuation in one nostril x1 may repeat dose in alternate nostrils q2-3min until pt responsiv e or EMS arrives 2023 active Not Available Not Available Not Avai lable Vitals Date Recorded Body height Body mass index (BMI) Body weight Body temperature Oxygen saturation Oxygen saturation in Arterial blood by Pulse oximetry Respiratory rate Systolic And Diastolic Systolic And Diastolic Provider Name and Address Organization Details Last Updated DateTime 198.12 cm 30 kg/m2 862534. 02 g 98.8 [degF] 96 % 96 % 16 /min 120/96 mm[Hg] 120/92 mm[Hg] Austin Lyle [facility] 12:23:27 Social History Question Answer Notes LastModified by Organizat ion Details LastModified Time Tobacco Smoking Status Former Smoker Tiffany Lyle [facility] 04/08/2024 11:44:36 Do You Have An Advance Directive? No Information not available 04/08/2024 How Many Years Have You Consumed Alcohol? 22 [email or web address] Information not available 04/23/2025 Do You Wear A Helmet When Biking? No [email or web address] Information not available 04/08/2024 Are You Blind Or Do You Have Difficulty Seeing? No [email or web address] Information not available 04/08/2024 Is Blood Transfusion Acceptable In An Emergency? Yes Information not available 04/08/2024 What Is Your Level Of Caffeine Consumption? Moderate Information not available 05/01/2024 How Much Tobacco Do You Chew? 1/day Information not available 04/23/2025 Have You Been To An Area Known To Be High Risk For COVID-19? No [email or web address] Information not available 04/08/2024 Are You Deaf Or Do You Have Serious Difficulty Hearing? No [email or web address] Information not available 04/08/2024 What Type Of Diet Are You Following? REGULAR Information not available 04/08/2024 Which Illicit Or Recreational Drugs Have You Used? HEROINE, OXY, FENTNYL, XANAX Pt Reports He Hasn't Used In Over A Year. GLADIS Lester [email or web address] Information not available 04/23/2025 What Is The Highest Grade Or Level Of School You Have Completed Or The Highest Degree You Have Received? [id number] Information not available 04/08/2024 Diabetic Eye Exam 03/25/2025 [email or web address] Information not available 04/23/2025 In The Past 6 Months Have You Fallen No [email or web address] Information not available 04/08/2024 Have You Ever Been Tested For Hepatitis C Yes [email or web address] Information not available 04/08/2024 Have You Had A Blood Transfusion Before 1991? No [email or web address] Information not available 04/08/2024 Have You Had Chcf Dialysis? No [email or web address] Information not available 04/08/2024 Have You Ever Used Injectable Drugs, Even Once? Yes [email or web address] Information not available 04/08/2024 Do You Have Tattoos Or Body Piercings? Yes [email or web address] Information not available 04/08/2024 Have You Had Close Contact With An Individual With Hepatitis C? No Information not available 04/08/2024 Have You Ever Had Sex For Drugs Or Money? No [email or web address] Information not available 04/08/2024 Have You Ever Had Unprotected Sex? Yes Information not available 04/08/2024 Have You Been Incarcerated For Longer Than 6 Months? No [email or web address] Information not available 04/08/2024 Have You Tested Positive For HIV? No Information not available 04/08/2024 Do You Have A History Of Fist Fighting Or Combat Experience? Yes [email or web address] Information not available 04/08/2024 Medication List Reconciled Yes [email or web address] Information not available 04/08/2024 What Number (0-10) Best Describes How, During The Past Week, Has Interfered With Your General Activity? 0 Information not available 08/28/2024 What Number (0-10) Best Describes How, During The Past Week, Pain Has Interfered With Your Enjoyment In The Past Week 0 Information not available 08/28/2024 What Number (0-10) Best Describes Your Pain On Average In The Past Week 0 Information not available 08/28/2024 Total PEG Score 0 Informati on not available 08/28/2024 Most Recent Dental Visit 05/09/2024 No New Appt. To Report. GLADIS Lester [email or web address] Information not available 07/31/2024 Sexual Orientation Straight Or Heterosexual [email or web address] Information not available 04/08/2024 Gender Identity Male [email or web address] Informati on not available 04/08/2024 Eye Exam 03/09/2024 Not Recently- GLADIS Lester 04/23/25 [email or web address] Information not available 04/08/2024 Do You Feel Safe Yes [email or web address] Information not available 04/08/2024 What Was The Date Of Your Most Recent Tobacco Screening? 04/23/2025 [email or web address] Information not available 04/23/2025 How Many Children Do You Have? 2 [email or web address] Information not available 04/08/2024 Do You Use Protection During Sex? Always [email or web address] Information not available 04/08/2024 What Is Your Relationship Status? [email or web address] Information not available 04/08/2024 Do You Use Your Seat Belt Or Car Seat Routinely? Yes Information not available 04/08/2024 Are You Sexually Active? Yes [email or web address] Information not available 04/08/2024 At What Age Did You Start Smoking Tobacco? 15 [email or web address] Information not available 04/23/2025 How Much Tobacco Do You Smoke? No [email or web address] Information not available 04/23/2025 How Many Years Have You Smoked Tobacco? 10 [email or web address] Information not available 04/23/2025 Do You Have Difficulty Walking Or Climbing Stairs? No Information not available 05/01/2024 Sex: Male Functional Status Question Answer Note LastModified by Organizat ion Details LastModified Time Do you use any illicit or recreational drugs? No [email or web address] Information not available 04/16/2025 Do you or have you ever used any other forms of tobacco or nicotine? Yes [email or web address] Information not available 04/10/2024 What is your level of alcohol consumption? Occasional [email or web address] Information not available 04/23/2025 Do you or have you ever used smokeless tobacco? Currently chews tobacco twice monthly only when doing yard work. GLADIS lester Information not available 04/23/2025 Are you currently employed? No [email or web address] Information not available 04/08/2024 Do you have transportation difficulties? No Information not available 05/01/2024 Are you able to walk independently without assistance or assistive devices? YESWOREST [email or web address] Information not available 04/08/2024 Do you have difficulty doing errands alone? No Information not available 04/08/2024 Are you able to care for yourself independently? Yes [email or web address] Information not available 04/08/2024 Do you have difficulty dressing, bathing, grooming, or toileting? No [email or web address] Information not available 04/08/2024 Do you or have you ever used e-cigarettes or vape? Current user of electronic cigarettes twice monthly only when doing yard work. GLADIS lester [email or web address] Information not available 04/23/2025 What is your exercise level? Moderate Information not available 04/08/2024 Mental Status Question Answer Note LastModified by Organizat ion Details LastModified Time Do you feel stressed (tense, restless, nervous, or anxious, or unable to sleep at night)? [id number] Information not available 03/11/2025 Do you have difficulty concentrating, remembering or making decisions? No [email or web address] Information no t available 04/08/2024 Family History Relationship Description Onset Age of this Age Resolved Age Notes LastModified by Organization Details LastModified Time Unspecified Relation Hypertensive disorder [email or web address] Not available 2023 11:42:54 Medical History Condition Response Other N Gout N Kidney Stones N Blood Diseases N Hyperthyroidism N Blood Transfusion N Depression N COPD N Incontinence N Edema N Endocrine Disorders N Anxiety Disorder N Muscle, Joint, or Bone Problems N Obesity N Vision or Eye Problems N Arthritis N Auditory Hallucinations N Infertility N Cancer N Stroke N Varicosities N Fibromyalgia N Headaches N Kidney Disease N Abnormal Bleeding N Reproductive System Problems N Ear or Hearing Problems N Hospitalizations N Learning Disorder N Skin Problems N Eating Disorder N MRSA exposure N Urinary Problems N Constipation N Brain Injury N Visual Hallucinations N AIDS/HIV N Tuberculosis N Back Problems N Asthma N GERD/Reflux N Hepatitis N Pulmonary Embolism N Chronic Ear Infections N Chicken Pox N Autism Spectrum Disorder (ASD) N Thrombophilias N Thyroid Disease N Breast Cancer N Hypothyroidism N Lung Disease N Developmental or Behavioral Disorders N Defects or Inherited Disease N Breast Problem N Difficulty Swallowing N Anesthesia Complications N Deep Vein Thrombosis N Meniere's disease N Hearing Loss N Head Injury/Concussion N Congenital Anomalies N Abnormal Pap Smear N Endometriosis N Bladder or Kidney Problems N High Cholesterol N Nervous System Disorder N Liver Disease N Psychiatric/Mental Health Condition N Schizophrenia N Allergies/Hayfever N Parkinson's Disease N GI Problems N ADD/ADHD Y Anemia N Colon Polyps N Heart Attack ([place]) N Diabetes N Ovarian Cancer N Bedwetting N Seizures/Epilepsy N Amnesia N Congestive Heart Failure (CHF) N Eczema N Dementia N Diverticulitis N Abuse/Domestic Violence N Cardiovascular N Tourette Syndrome N Hypertension N Pre-Eclampsia N Osteoporosis N Immunizations Vaccine Type Date Status Note Provider Nam e and Address Organization Details Recorded Time Influenza, split virus, quadrivalent, preservative 9 completed [facility] 11:37:39 Influenza, adjuvanted, trivalent, PF 7 completed Alma Counts [facility] 05/01/2024 11:37:39 COVID-19, mRNA, LNP-S, PF, 100 mcg/0.5mL dose or 50 mcg/0.25mL dose 1 completed Alma Counts [facility] 05/01/2024 11:37:39 COVID-19, mRNA, LNP-S, PF, 100 mcg/0.5mL dose or 50 mcg/0.25mL dose 1 completed Alma Counts [facility] 05/01/2024 11:37:39 Tdap 9 completed Alma Counts [facility] 05/01/2024 11:37:39 Tdap 4 completed Alma Counts [facility] 05/01/2024 11:37:39 Influenza, split virus, trivalent, preservative 4 completed Alma Counts null, [facility] 05/01/2024 11:37:40 Influenza, split virus, trivalent, preservative 7 completed [facility] 11:37:40 Influenza, split virus, trivalent, PF 5 completed [facility] 11:37:40 Influenza, split virus, trivalent, PF 6 completed Alma Counts null, [facility] 05/01/2024 11:37:40 Hep B, adult 9 completed Alma Counts null, [facility] 05/01/2024 11:37:40 Hep A, adult 9 completed Alma Counts null, [facility] 05/01/2024 11:37:40 Influenza, split virus, quadrivalent, PF 0 completed Alma Counts null, [facility] 05/01/2024 11:37:40 Influenza, MDCK, trivalent, PF 4 completed Alma Counts null, [facility] 05/01/2024 11:59:05 HPV9 4 completed MARILEE HOUSTON, HANDLE ATTACHER [address], [address], [facility] 05/01/2024 20:39:13 HPV9 5 completed Gisselle Chandler null, [facility] 07/31/2024 11:49:18 HPV9 5 completed MARILEE HOUSTON, HANDLE ATTACHER [address], [address], [facility] 09/02/2024 16:53:51 Hep B, adult 5 completed Nicolle Henderson null, [facility] 10/30/2024 11:38:51 Hep B, adult 5 completed Tiffany Lyle null, [facility] 11/27/2024 09:40:14 Hep B, adult 5 completed Austin Lyle null, [facility] 04/23/2025 13:19:24 Past Encounters Encounter ID Performer Location Encounter Start Date Encounter Closed Date Diagnosis/Indication Diagnosis SNOMED-CT Code Diagnosis ICD10 Code Diagnosis IMO Codes Diagnosis Note [id number] Akil Babin DO [facility] [address] [place] [address] 03/26/2025 09:04:31 03/30/2025 08:33:16 Opioid dependence 25412191 F11.20 UDS today: deferred due to virtual visit.UDS prior: 02/26/25 Adderall, bup, norbup, naloxone, quetiapine doing great in recovery.F ollow up in 4 weeks virtual visits with in clinic every 3 months. Next in clinic is April for last engerix shot.Ilya florencio counsellin g as desired.Ke ep follow ups with specialist (s).Curren t dose of buprenorph ine is: 24 mg/dPDMP reviewed: consistent Attention deficit hyperactivity disorder 868287203 F90.9 Taking Adderall XR 30mg BID states this is doing great.Next refill due 04/17/25Wi ll adjust suboxone Rx and follow up so pt can pickle pumper both on the same day next month. Tobacco us e cessation education 601765240 Z71.6 chewing tobacco, cutting down on this a little Requires vaccination 723 981446 Z23 525375 Engerix final dose due in April, will give next visit. Diet education 47934177 Z71.3 Healthy diet recommende d with increased green vegetables (50% of plate) Exercises education, guidance, and counseling 646047177 Z71.82 Recommend exercise of at least 150 minutes per week, 10 minutes minimum uninterrup giancarlo. Body mass index 30+ - obesity 181477249 Z68.31 503484 BMI 31.4 [id number] Akil Babin DO [facility] [address] [place] [address] 04/16/2025 09:24:21 04/16/2025 17:26:59 Opioid dependence 22084938 F11.20 UDS today: deferred due to virtual visit.UDS prior: 02/26/25 Adderall, bup, norbup, naloxone, quetiapine doing great in recovery.F ollow up in 4 weeks virtual visits with in clinic every 3 months. Next in clinic is April for last engerix shot.Ilya nue counseljorge g as desired.Ke ep follow ups with specialist (s).Curren t dose of buprenorph ine is: 24 mg/dPDMP reviewed: consistent Attention deficit hyperactivity disorder 784875414 F90.9 Taking Adderall XR 30mg BID states this is doing great.Next refill due 04/17/25 Tobacco us e cessation education 363617596 Z71.6 chewing tobacco, cutting down on this a little Requires vaccination 723 555490 Z23 680608 Engerix final dose due in April, will give next visit. Essential hypertension 57820398 I10 03177 Riding bicycle to help lose some weight.Erna e BP cuff has quit working. Diet education 81134871 Z71.3 Healthy diet recommende d with increased green vegetables (50% of plate) Exercises education, guidance, and counseling 280039687 Z71.82 Recommend exercise of at least 150 minutes per week, 10 minutes minimum uninterrup giancarlo. Body mass index 30+ - obesity 272548593 E66.9 3013235 BMI 30.2 [id number] Akil Babin, [facility] [address] [place] [address] 04/23/2025 11:48:54 04/23/2025 14:26:34 Opioid dependence 45148925 F11.20 UDS today: sent to labUDS prior: 02/26/25 Adderall, bup, norbup, naloxone, quetiapine doing great in recovery.F ollow up in 4 weeks virtual visits with in clinic every 3 months. Next in clinic is April for last engerix shot.Ilya matias counsellin g as desired.Ke ep follow ups with specialist (s).Rafael t dose of buprenorph ine is: 24 mg/dPDMP reviewed: consistent Attention deficit hyperactivity disorder 138434451 F90.9 Taking Adderall XR 30mg BID states this is doing great. Tobacco us e cessation education 103356033 Z71.6 chewing tobacco, cutting down on this a little Requires vaccination 723 520079 Z23 462980 Engerix final dose due in April, will give next visit. Essential hypertension 16596907 I10 72488 was taking lisinopril PRN Discu ssed this is a daily. Diet education 99971022 Z71.3 Healthy diet recommende d with increased green vegetables (50% of plate) Exercises education, guidance, and counseling 546428212 Z71.82 Recommend exercise of at least 150 minutes per week, 10 minutes minimum uninterrup giancarlo. Body mass index 30+ - obesity 668728513 E66.9 9771886 BMI 30.2 Health Concerns Section Related Observation LastModified by Organization Detai ls LastModified Time None Recorded Concern Status LastModified by Organization Details LastModified Time None Recorded Payers Encounter Date Sequence Insurance Name Policy Number Policy Sheikh Covered Member ID Sheikh Member ID Guarantor Name 04/23/2025 1 [place] Kyle Cartwright [id number] Kyle Cartwright Notes Date Note Type Note Provider Name and Address Organization Details Recorded Time 04/23/2025 text/html MAT and ADHD follow upSTates he feels great on current dose of suboxone and adderall.No struggles in recovery.He is due for last HBV immunizationHe is riding a bike for exercise. LITZY CRUZ, DO [address], [address], [facility] 04/23/2025 22:32:15
--- OUTSIDE RECORDS SUMMARY | 2025-04-26 23:23 | XMS_ITS | Encounter Summary ---
Author Organization [employer] Address [address] [place] [address] Care Team Providers Care Shirt Folding Machine Operator Name Role Phone Akil Ordoñez MD Primary Care Provider [phone] Encounter Details Date Type Department Care Team [...] How often do you attend chur or zoroastrianism services? Never 06/08/2020 Do you belong to any clubs o r organizations such as islam groups, unions, fraternal or athletic groups, or [...] on file Legal Sex Male 6:23 AM IDEA MAN Gender Identity Not on file Sexual Orientation Not on file documented as of this encounter Plan of Treatment Not on file documented as of this encounter Visit Diagnoses Not on filedocumented in this encounter Care Teams Shirt Folding Machine Operator Relationship Specialty Start Date End Date Akil Ordoñez MD [address] [facility] [address] [place] [phone] PCP - General Family Practice 01/16/24 documented as of this encounter
--- OUTSIDE RECORDS SUMMARY | 2025-04-26 23:23 | XMS_ITS | Encounter Summary ---
Author Organization [facility] Address [address] [place] [address] Care Team Providers Care Concert Pianist Name Role Phone Akil Ordoñez MD Primary Care Provider [phone] Encounter Details Date Type Department Care Team [...] How often do you attend chur or protestant services? Never 06/08/2020 Do you belong to any clubs o r organizations such as sikhism groups, unions, fraternal or athletic groups, or [...] on file Legal Sex Male 6:23 AM SWIMMER Gender Identity Not on file Sexual Orientation Not on file documented as of this encounter Plan of Treatment Not on file documented as of this encounter Visit Diagnoses Not on filedocumented in this encounter Care Teams Concert Pianist Relationship Specialty Start Date End Date Akil Ordoñez MD [address] [address] [place] [phone] PCP - General Family Practice 01/16/24 documented as of this encounter
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
--- OUTSIDE RECORDS SUMMARY | 2025-04-26 23:23 | XMS_ITS | Encounter Summary ---
Author Organization [facility] Address [address] [address] Phone Care Team Providers Care Director Corporate Compliance Name Role Phone Unavailable Primary Care Provider Unavailabl e Encounter Details Date Type Department Care Team (Late st Contact Info) Description 05/27/2020 Orders Only [facility] [address] [place] [address] Celine Phoenix MD No forwarding address at this time. Social History Tobacco Use Types Packs/Day Years Used Date Smoking Tobacco: Every Day Cigarettes Smokeless Tobacco: Never Alcohol Use Standard Drinks/Week Comments Not Currently [...] on file Sexual Orientation Not on file COVID-19 Exposure Response Date Recorded In the last month, have you been in contact with someone who was confirmed or suspected to have Coronavirus / COVID-19? No / Unsure 05/25/2020 11:53 AM CUT OUT OPERATOR documented as of this encounter Functional Status * Are you deaf or do you have serious difficulty hearing? Answer Date of Assessment Author No 05/26/2020 10:38 AM CUT OUT OPERATOR Kelby Gonzales BSW * Are you blind or do you have serious difficulty seeing, even when wearing glasses? Answer Date of Assessment Author No 05/26/2020 10:38 AM CUT OUT OPERATOR Kelby Gonzales BSW * Do you have serious difficulty walking or climbing stairs? Answer Date of Assessment Author No 05/26/2020 10:38 AM Kelby Iverson BSW * Do you have serious difficulty dressing or bathing? Answer Date of Assessment Author No 05/26/2020 10:38 AM Kelby Iverson BSW * Because of a physical, mental, or emotional condition, do you have serious difficulty doing errandsalone such as visiting the doctor? Answer Date of Assessment Author No 05/26/2020 10:38 AM Kelby Iverson BSW documented as of this encounter Mental Status * Because of a physical, mental, or emotional condition, do you have serious difficulty concentrating, remembering, or making decisions? (5 years old or older) Answer Entry Date Author No 05/26/2020 10:38 AM Kelby Iverson BSW documented in this encounter Plan of Treatment Not on file documented as of this encounter Visit Diagnoses Not on filedocumented in this encounter
--- OUTSIDE RECORDS SUMMARY | 2025-04-26 23:24 | XMS_ITS | Data Portability ---
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 Routine wellness/ Pending follow ups: Engerix 04/29/25 Annual visit with collaborative physician: July 15, 2024 Annual labs [email or web address] Not available 02/23/2025 14:10:57 03/11/2025 03/11/2025 See Sofie Houston NP's., prior note for Tx Summary and General Wellness [email or web address] Not available 03/05/2025 17:20:50 03/26/2025 03/26/2025 Treatment Summary: Started [facility] program 04/03/24 He was on suboxone on and off for about 12 years He had been going to ER to gets enough to last for a week and tried to spread it out as long as he could until he found this program. Last use was heroin, snorting it 03/29/24 He has been on buprenorphine from the hospital ER. 2011 took suboxone for 3 years then the [...] OPIOIDS negative. Routine wellness/ Pending follow ups: Engerix 04/29/25 Annual visit with collaborative physician: March 11, 2025 Annual labs April [email or web address] Not available 03/26/2025 19:08:41 04/16/2025 04/16/2025 Treatment Summary: Started [facility] program 04/03/24 He was on suboxone on and off for about 12 years He had been going to ER to gets enough to last for a week and tried to spread it out as long as he could until he found this program. Last use was heroin, snorting it 03/29/24 He has been on buprenorphine from the hospital ER. 2011 took suboxone for 3 years then the [...] OPIOIDS negative. Routine wellness/ Pending follow ups: Engerix 04/29/25 Last visit with collaborative physician: March 11, 2025 Annual labs [email or web address] Not available 04/16/2025 09:43:33 04/23/2025 04/23/2025 Treatment Summary: Started [facility] program 04/03/24 He was on suboxone on and off for about 12 years He had been going to ER to gets enough to last for a week and tried to spread it out as long as he could until he found this program. Last use was heroin, snorting it 03/29/24 He has been on buprenorphine from the hospital ER. 2011 took suboxone for 3 years then the [...] collaborative physician: March 11, 2025 Annual labs May Not available 04/23/2025 12:58:39 Plan of Treatment Reminders Order Date Submit Date Provider Last Modified By Organization Details Last Modified Time Details Appointments MAT 15 2024 09:15A Janine HOUSTON, CRYS Not available Not available Not available Lab [...] n (Lyrica) Zolpidem (Ambien) Specimen Validity 2024 025 [facility], [address], [place], [address], 04/23/2025 13:14:26 drug screen, urine - Includes the following [...] n (Lyrica) Zolpidem (Ambien) Specimen Validity 2024 [facility], [address] [place], [address], 03/01/2025 21:29:24 Referral None recorded. Procedures None recorded. Surgeries None recorded. Imaging None recorded. Medication Orders buprenorp ramy 8 mg-naloxo ne 2 mg sublingua l tablet [address], [address], 04/24/2025 10:46:00 Adderall XR 30 mg capsule,e xtended release [address], [address], 04/24/2025 10:45:59 buprenorp ramy 8 mg-naloxo ne 2 mg sublingua l tablet [address], [address], 04/17/2025 13:21:56 Adderall XR 30 mg capsule,e xtended release 2024 025 [facility], [address] [place] [address], [address], 04/17/2025 14:17:22 buprenorp ramy 8 mg-naloxo ne 2 mg sublingua l tablet 2024 025 [facility] [place], [address], [place], [address], 03/26/2025 11:21:54 lisinopri l 10 mg tablet 2024 025 [id number], [address], [place], [place], [id number], 03/11/2025 15:34:22 Adderall XR 30 mg capsule,e xtended release 2024 025 [facility] #[id number], [address], [place], [place], [id number], 03/11/2025 15:34:20 buprenorp ramy 8 mg-naloxo ne 2 mg sublingua l tablet 2024 025 [facility] #[id number], [address], [place], [place], [id number], 02/26/2025 09:38:29 prednison e 50 mg tablet 2024 025 [id number], [address], [place], [place], [id number], 03/10/2025 05:02:35 lisinopri l 10 mg tablet 2024 025 [facility]55297, [address], [place], [place], [id number], 02/26/2025 09:36:44 Adderall XR 30 mg capsule,e xtended release 2024 025 [email or web address] [facility]123, [address], [place], [place], [id number], 03/05/2025 13:34:33 Patient TargetsNo targets recorded. Patient Instructions Encounter Date Encounter Id Patient Instructions Last Modified By Organization Details Last Modified Time 03/11/2025 [id number] This was a telephone visit. I was at [facility] and patient was at home. Verbal consent was obtained. Visit was 15 minutes Visit was with real time audio. We have the ability to do audio and video but patient request audio only for convenience [email or web address] Not available 03/11/2025 15:34:47 03/26/2025 [id number] heart-healthy diet: care instructions Not available 03/26/2025 19:12:52 walking for exercise: care instructions [email or web address] Not available 03/26/2025 19:12:52 body mass index: care instructions [email or web address] Not available 03/26/2025 19:12:51 learning about healthy weight [email or web address] Not available 03/26/2025 19:12:51 This was a virtual appointment. Verbal consent was obtained. Virtual visit with AUDIO ONLY. Provider has access to video and audio, but pt was unable to join with video today. Pt was at home and provider at [facility] Phone visit lasted 7 min and 4 seconds Not available 03/26/2025 19:12:25 04/16/2025 [id number] heart-healthy diet: care instructions [email or web address] Not available 04/16/2025 09:39:27 walking for exercise: care instructions [email or web address] Not available 04/16/2025 09:39:27 high blood pressure: care instructions [email or web address] Not available 04/16/2025 09:39:27 learning about high blood pressure [email or web address] Not available 04/16/2025 09:39:27 body mass index: care instructions [email or web address] Not available 04/16/2025 09:39:27 learning about healthy weight [email or web address] Not available 04/16/2025 09:39:27 This was a virtual appointment. Verbal consent was obtained. Virtual visit with AUDIO ONLY. Provider has access to video and audio, but pt was unable to join with video today. Pt was at home and provider at [facility] Phone visit lasted 6 min and 58 seconds [email or web address] Not available 04/16/2025 09:40:52 04/23/2025 [id number] heart-healthy diet: care instructions Not available 04/23/2025 13:02:16 walking for exercise: care instructions [email or web address] Not available 04/23/2025 13:02:16 high blood pressure: care instructions [email or web address] Not available 04/23/2025 13:02:17 learning about high blood pressure [email or web address] Not available 04/23/2025 13:02:16 body mass index: care instructions [email or web address] Not available 04/23/2025 13:02:17 learning about healthy weight Not available 04/23/2025 13:02:17 Reason for Referral None Reported. Results Created Date Observation Date Name Description Value Unit Range Abnormal Flag Note LastModifiedBy Organization Detail LastModifiedTime 02/27/2003/01/2025 MILLE NNIUM RESUL TS codeine quantificati on negati ve NG/mL 50 normal Not Available Good Photo [id number] [employer] [place], [address], 03/01/2025 21:29:23 02/27/20 25 03/01/2025 MILLE NNIUM RESUL TS morphine quantificati on negati ve NG/mL 50 normal Not Available Good Photo [address] [employer], [place], [address], 03/01/2025 21:29:23 02/27/20 25 03/01/2025 MILLE NNIUM RESUL TS hydrocodone quantificati on negati ve NG/mL 50 normal Not Available Good Photo [address]26 [place] [facility] [place], [address], 03/01/2025 21:29:23 02/27/20 25 03/01/2025 MILLE NNIUM RESUL TS norhydrocodo ne quantificati on negati ve NG/mL 50 normal Not Available Good Photo [address] [place], [address], 03/01/2025 21:29:23 02/27/20 25 03/01/2025 MILLE NNIUM RESUL TS hydromorphon e quantificati on negati ve NG/mL 50 normal Not Available Good Photo [address] [place], [address], 03/01/2025 21:29:23 02/27/20 25 03/01/2025 MILLE NNIUM RESUL TS oxycodone quantificati on negati ve NG/mL 50 normal Not Available Good Photo [address] [place], [address], 03/01/2025 21:29:23 02/27/20 25 03/01/2025 MILLE NNIUM RESUL TS noroxycodone quantificati on negati ve NG/mL 50 normal Not Available Good Photo [address] [place], [address], 03/01/2025 21:29:23 02/27/20 25 03/01/2025 MILLE NNIUM RESUL TS oxymorphone quantificati on negati ve NG/mL 50 normal Not Available Good Photo [address] [place], [address], 03/01/2025 21:29:23 02/27/20 25 03/01/2025 MILLE NNIUM RESUL TS buprenorphin e quantificati on positi ve-337 .264 NG/mL 5 normal Not Available Good Photo [address] [place], [address], 03/01/2025 21:29:23 02/27/20 25 03/01/2025 MILLE NNIUM RESUL TS norbuprenorp ramy quantificati on positi ve-646 .651 NG/mL 20 normal Not Available Good Photo [address] [place], [address], 03/01/2025 21:29:23 02/27/20 25 03/01/2025 MILLE NNIUM RESUL TS fentanyl quantificati on negati ve NG/mL 1 normal Not Available Good Photo [address] [place], [address], 03/01/2025 21:29:23 02/27/20 25 03/01/2025 MILLE NNIUM RESUL TS norfentanyl quantificati on negati ve NG/mL 8 normal Not Available Good Photo [address] [place], [address], 03/01/2025 21:29:23 02/27/20 25 03/01/2025 MILLE NNIUM RESUL TS methadone quantificati on negati ve NG/mL 100 normal Not Available Good Photo [address] [place], [address], 03/01/2025 21:29:23 02/27/20 25 03/01/2025 MILLE NNIUM RESUL TS EDDP (methadone metabolite) quantificati on negati ve NG/mL 100 normal Not Available Good Photo [address] [place], [address], 03/01/2025 21:29:23 02/27/20 25 03/01/2025 MILLE NNIUM RESUL TS tramadol quantificati on negati ve NG/mL 100 normal Not Available Good Photo [address] [place], [address], 03/01/2025 21:29:23 02/27/20 25 03/01/2025 MILLE NNIUM RESUL TS O-desmethyl- tramadol quantificati on negati ve NG/mL 100 normal Not Available Good Photo [address] [place], [address], 03/01/2025 21:29:23 02/27/20 25 03/01/2025 MILLE NNIUM RESUL TS N-desmethyl- tramadol quantificati on negati ve NG/mL 100 normal Not Available Good Photo [address] [place], [address], 03/01/2025 21:29:23 02/27/20 25 03/01/2025 MILLE NNIUM RESUL TS tapentadol quantificati on negati ve NG/mL 50 normal Not Available Good [place] [address] [place], [address], 03/01/2025 21:29:23 02/27/20 25 03/01/2025 MILLE NNIUM RESUL TS meperidine quantificati on negati ve NG/mL 50 normal Not Available Good Photo [address] [place], [address], 03/01/2025 21:29:23 02/27/20 25 03/01/2025 MILLE NNIUM RESUL TS normeperidin e quantificati on negati ve NG/mL 50 normal Not Available Good [place] [address] [place], [address], 03/01/2025 21:29:23 02/27/20 25 03/01/2025 MILLE NNIUM RESUL TS alpha-hydrox yalprazolam quantificati on negati ve NG/mL 20 normal Not Available Good Photo [address] [place], [address], 03/01/2025 21:29:23 02/27/20 25 03/01/2025 MILLE NNIUM RESUL TS 1-fowox-xcoh azepam quantificati on negati ve NG/mL 20 normal Not Available Good Photo [address] [place], [address], 03/01/2025 21:29:23 02/27/20 25 03/01/2025 MILLE NNIUM RESUL TS lorazepam quantificati on negati ve NG/mL 40 normal Not Available Good [place] [address] [place], [address], 03/01/2025 21:29:23 02/27/20 25 03/01/2025 MILLE NNIUM RESUL TS nordiazepam quantificati on negati ve NG/mL 40 normal Not Available Good Photo [address] [place], [address], 03/01/2025 21:29:23 02/27/20 25 03/01/2025 MILLE NNIUM RESUL TS temazepam quantificati on negati ve NG/mL 50 normal Not Available Good Photo [address] [place], [address], 03/01/2025 21:29:23 02/27/20 25 03/01/2025 MILLE NNIUM RESUL TS oxazepam quantificati on negati ve NG/mL 40 normal Not Available Good Photo [address] [place], [address], 03/01/2025 21:29:23 02/27/20 25 03/01/2025 MILLE NNIUM RESUL TS amphetamine quantificati on positi ve-> 37962 NG/mL 100 normal Not Available Good Photo [address] [place], [address], 03/01/2025 21:29:23 02/27/20 25 03/01/2025 MILLE NNIUM RESUL TS methylphenid ate quantificati on negati ve NG/mL 50 normal Not Available Good Photo [address] [place], [address], 03/01/2025 21:29:23 02/27/20 25 03/01/2025 MILLE NNIUM RESUL TS ritalinic acid quantificati on negati ve NG/mL 50 normal Not Available Good Photo [address] [place], [address], 03/01/2025 21:29:23 02/27/20 25 03/01/2025 MILLE NNIUM RESUL TS quetiapine quantificati on positi ve-> 99012 NG/mL 25 normal Not Available Good Photo [address] [place], [address], 03/01/2025 21:29:23 02/27/20 25 03/01/2025 MILLE NNIUM RESUL TS norquetiapin e quantificati on positi ve-> 6250 NG/mL 25 normal Not Available Good [place] [address] [place], [address], 03/01/2025 21:29:23 02/27/20 25 03/01/2025 MILLE NNIUM RESUL TS gabapentin quantificati on negati ve NG/mL 1000 normal Not Available Good [place] [address] [place], [address], 03/01/2025 21:29:23 02/27/20 25 03/01/2025 MILLE NNIUM RESUL TS pregabalin quantificati on negati ve NG/mL 400 normal Not Available Good [place] [address] [place], [address], 03/01/2025 21:29:23 02/27/20 25 03/01/2025 MILLE NNIUM RESUL TS ketamine quantificati on negati ve NG/mL 50 normal Not Available Good [place] [address] [place], [address], 03/01/2025 21:29:23 02/27/20 25 03/01/2025 MILLE NNIUM RESUL TS norketamine quantificati on negati ve NG/mL 50 normal Not Available Good [place] [address] [place], [address], 03/01/2025 21:29:23 02/27/20 25 03/01/2025 MILLE NNIUM RESUL TS naltrexone quantificati on negati ve NG/mL 10 normal Not Available Good Photo [address]64 [place], [address], 03/01/2025 21:29:23 02/27/20 25 03/01/2025 MILLE NNIUM RESUL TS naltrexol quantificati on negati ve NG/mL 10 normal Not Available Good Photo [address]283 [place], [address], 03/01/2025 21:29:23 02/27/20 25 03/01/2025 MILLE NNIUM RESUL TS naloxone quantificati on positi ve-265 8.924 NG/mL 20 normal Not Available Good Photo [address] [place], [address], 03/01/2025 21:29:23 02/27/20 25 03/01/2025 MILLE NNIUM RESUL TS czolpidem quantificati on negati ve NG/mL 10 normal Not Available Good Photo [address] [place], [address], 03/01/2025 21:29:23 02/27/20 25 03/01/2025 MILLE NNIUM RESUL TS carisoprodol quantificati on negati ve NG/mL 100 normal Not Available Good Photo [address] [place], [address], 03/01/2025 21:29:23 02/27/20 25 03/01/2025 MILLE NNIUM RESUL TS meprobamate quantificati on negati ve NG/mL 100 normal Not Available Good Photo [address]6980 [place], [address], 03/01/2025 21:29:23 02/27/20 25 03/01/2025 MILLE NNIUM RESUL TS pentobarbita l quantificati on negati ve NG/mL 200 normal Not Available Good Photo [address] [place], [address], 03/01/2025 21:29:23 02/27/20 25 03/01/2025 MILLE NNIUM RESUL TS phenobarbita l quantificati on negati ve NG/mL 200 normal Not Available Good Photo [address] [place], [address], 03/01/2025 21:29:23 02/27/20 25 03/01/2025 MILLE NNIUM RESUL TS secobarbital quantificati on negati ve NG/mL 200 normal Not Available Good Photo [address]67[address] [place], [address], 03/01/2025 21:29:23 02/27/20 25 03/01/2025 MILLE NNIUM RESUL TS butalbital quantificati on negati ve NG/mL 200 normal Not Available Good Photo [address] [place], [address], 03/01/2025 21:29:23 02/27/20 25 03/01/2025 MILLE NNIUM RESUL TS dextromethor thao negati ve NG/mL 50 normal Not Available Good Photo [address] [place], [address], 03/01/2025 21:29:23 02/27/20 25 03/01/2025 MILLE NNIUM RESUL TS levorphanol / dextrorphan quantificati on negati ve NG/mL 50 normal Not Available Good Photo 16097 [place], [address], 03/01/2025 21:29:23 02/27/20 25 03/01/2025 MILLE NNIUM RESUL TS phentermine quantificati on negati ve NG/mL 50 normal Not Available Good Photo 85167 [place], [address], 03/01/2025 21:29:23 02/27/20 25 03/01/2025 MILLE NNIUM RESUL TS methamphetam ine quantificati on negati ve NG/mL 100 normal Not Available Good Photo 68[address] [place], [address], 03/01/2025 21:29:23 02/27/20 25 03/01/2025 MILLE NNIUM RESUL TS cocaine metabolite quantificati on negati ve NG/mL 50 normal Not Available Good Photo 650[address] [place], [address], 03/01/2025 21:29:23 02/27/20 25 03/01/2025 MILLE NNIUM RESUL TS cthc (marijuana metabolite) quantificati on negati ve NG/mL 15 normal Not Available Good Photo 324[address] [place], [address], 03/01/2025 21:29:23 02/27/20 25 03/01/2025 MILLE NNIUM RESUL TS MDMA quantificati on negati ve NG/mL 100 normal Not Available Good Photo [address]47[address] [place], [address], 03/01/2025 21:29:23 02/27/20 25 03/01/2025 MILLE NNIUM RESUL TS 6-CRISTHIAN (heroin metabolite) quantificati on negati ve NG/mL 10 normal Not Available Good Photo 94857 [place], [address], 03/01/2025 21:29:23 02/27/20 25 03/01/2025 MILLE NNIUM RESUL TS phencyclidin e quantificati on negati ve NG/mL 10 normal Not Available Good Photo 63871 [place], [address], 03/01/2025 21:29:23 02/27/20 25 03/01/2025 MILLE NNIUM RESUL TS acetyl fentanyl quantificati on Fen Neg NG/mL 2 normal Not Available Good Photo 22360 [place], [address], 03/01/2025 21:29:23 02/27/20 25 03/01/2025 MILLE NNIUM RESUL TS acetyl norfentanyl quantificati on Fen Neg NG/mL 5 normal Not Available Good Photo [address]178 [place], [address], 03/01/2025 21:29:23 02/27/20 25 03/01/2025 MILLE NNIUM RESUL TS acryl fentanyl quantificati on Fen Neg NG/mL 1 normal Not Available Good Photo [address]5630 [address] [employer] [place], [address], 03/01/2025 21:29:23 02/27/20 25 03/01/2025 MILLE NNIUM RESUL TS carfentanil quantificati on Fen Neg NG/mL 2 normal Not Available Good Photo 03789 [address] [employer], [address], 03/01/2025 21:29:23 02/27/20 25 03/01/2025 MILLE NNIUM RESUL TS para-fluorof entanyl quantificati on Fen Neg NG/mL 1 normal Not Available Good Photo 07507 [address] [employer], [address], 03/01/2025 21:29:23 02/27/20 25 03/01/2025 MILLE NNIUM RESUL TS 2-methyl AP-237 quantificati on negati ve NG/mL 10 normal Not Available Good Photo 82473 [address] [employer], [address], 03/01/2025 21:29:23 02/27/20 25 03/01/2025 MILLE NNIUM RESUL TS brorphine quantificati on negati ve NG/mL 15 normal Not Available Good Photo 07665 [address] [employer], [address], 03/01/2025 21:29:23 02/27/20 25 03/01/2025 MILLE NNIUM RESUL TS metonitazene quantificati on negati ve NG/mL 5 normal Not Available Good Photo 12560 [address] [employer], [address], 03/01/2025 21:29:23 02/27/20 25 03/01/2025 MILLE NNIUM RESUL TS 8-aminoclona zolam quantificati on negati ve NG/mL 10 normal Not Available Good [place] [address] [place], [address], 03/01/2025 21:29:23 02/27/20 25 03/01/2025 MILLE NNIUM RESUL TS etizolam quantificati on negati ve NG/mL 10 normal Not Available Good [place] [address] [place], [address], 03/01/2025 21:29:23 02/27/20 25 03/01/2025 MILLE NNIUM RESUL TS alpha-hydrox yetizolam quantificati on negati ve NG/mL 10 normal Not Available Good Photo [address] [place], [address], 03/01/2025 21:29:23 02/27/20 25 03/01/2025 MILLE NNIUM RESUL TS flualprazola m quantificati on negati ve NG/mL 10 normal Not Available Good Photo [address] [place], [address], 03/01/2025 21:29:23 02/27/20 25 03/01/2025 MILLE NNIUM RESUL TS flubromazola m quantificati on negati ve NG/mL 10 normal Not Available Good [place] [address] [place], [address], 03/01/2025 21:29:23 02/27/20 25 03/01/2025 MILLE NNIUM RESUL TS [id number] metabolite quantificati on negati ve NG/mL 10 normal Not Available Good Photo [address] [place], [address], 03/01/2025 21:29:23 02/27/20 25 03/01/2025 MILLE NNIUM RESUL TS qli603 metabolite quantificati on negati ve NG/mL 10 normal Not Available Good Photo [address]855 [place], [address], 03/01/2025 21:29:23 02/27/20 25 03/01/2025 MILLE NNIUM RESUL TS rcs4 metabolite quantificati on negati ve NG/mL 10 normal Not Available Good Photo [address] [place], [address], 03/01/2025 21:29:23 02/27/20 25 03/01/2025 MILLE NNIUM RESUL TS xlr11/ur144 metabolite negati ve NG/mL 10 normal Not Available Good Photo [address] [place], [address], 03/01/2025 21:29:23 02/27/20 25 03/01/2025 MILLE NNIUM RESUL TS 5F-adb-M7 negati ve NG/mL 10 normal Not Available Good Photo [address] [place], [address], 03/01/2025 21:29:23 02/27/20 25 03/01/2025 MILLE NNIUM RESUL TS Ab-fubinaca- M3 negati ve NG/mL 10 normal Not Available Good Photo [address] [place], [address], 03/01/2025 21:29:23 02/27/20 25 03/01/2025 MILLE NNIUM RESUL TS mdmb-fubinac a-M1 negati ve NG/mL 10 normal Not Available Good Photo 86293 [place], [address], 03/01/2025 21:29:23 02/27/20 25 03/01/2025 MILLE NNIUM RESUL TS eutylone quantificati on negati ve NG/mL 10 normal Not Available Good Photo [address]1691 [place], [address], 03/01/2025 21:29:23 02/27/20 25 03/01/2025 MILLE NNIUM RESUL TS methylone quantificati on negati ve NG/mL 3 normal Not Available Good Photo [address]70 [place], [address], 03/01/2025 21:29:23 02/27/20 25 03/01/2025 MILLE NNIUM RESUL TS xylazine quantificati on negati ve NG/mL 10 normal Not Available Good Photo 511[address] [place], [address], 03/01/2025 21:29:23 02/27/20 25 03/01/2025 MILLE NNIUM RESUL TS 4-hydroxy xylazine quantificati on negati ve NG/mL 10 normal Not Available Good Photo [address]356 [place], [address], 03/01/2025 21:29:23 02/27/20 25 03/01/2025 MILLE NNIUM RESUL TS mitragynine (kratom alkaloid) quantificati on negati ve NG/mL 1 normal Not Available Good Photo [address] [place], [address], 03/01/2025 21:29:23 02/27/20 25 03/01/2025 MILLE NNIUM RESUL TS 4-ke-atsnbqi nine (kratom alkaloid) quantificati on negati ve NG/mL 1 normal Not Available Good Photo [address]678 [place], [address], 03/01/2025 21:29:23 02/27/20 25 03/01/2025 MILLE NNIUM RESUL TS ethyl glucuronide quantificati on negati ve NG/mL 500 normal Not Available Good Photo [address]1053 [place], [address], 03/01/2025 21:29:23 02/27/20 25 03/01/2025 MILLE NNIUM RESUL TS ethyl sulfate quantificati on negati ve NG/mL 500 normal Not Available Good Photo [address]331 [place], [address], 03/01/2025 21:29:23 02/27/2003/01/2025 MILLE NNIUM RESUL TS creatinine normal -120.5 mg/dL >20 mg/dL normal Not Available Good Photo [address]197 [place], [address], 03/01/2025 21:29:23 02/27/20 25 03/01/2025 MILLE NNIUM RESUL TS oxidant normal -0 ug/mL <200 ug/mL normal Not Available Good Photo [address] [place], [address], 03/01/2025 21:29:23 02/27/20 25 03/01/2025 MILLE NNIUM RESUL TS pH normal -5.9 4.5 - 9.5 normal Not Available [employer] [id number] [place], [address], 03/01/2025 21:29:23 02/27/2003/01/2025 MILLE NNIUM RESUL TS specific gravity normal -1.025 1.003 - 1.035 normal Not Available [employer] [id number] [place], [address], 03/01/2025 21:29:23 Result Notes None recorded. Problems Name Problem SNOMED Code Status Onset Date Resolution Date Notes Provider Name and Address Organization Details Recorded Time Opioid dependence 26639794 Active 2023 MARILEE HOUSTON NP [address], [address] , [facility] 16:07:43 Chronic post-traumatic stress disorder 147251075 Active 2024 BRANDT GARCIA NP [address], [address], [facility] 12:50:16 Attention deficit hyperactivity disorder, predominantly hyperactive impulsive type 7965158 Active 2024 BRANDT GARCIA NP [address], [address], [facility] 5 13:00:11 Generalized anxiety disorder 61610876 Active 2024 BRANDT GARCIA NP [address], [address], [facility] 5 13:00:20 Attention deficit hyperactivity disorder 845306425 Active 2024 MARILEE HOUSTON NP [address], [address], [facility] 09:33:42 Problem Notes None recorded. Procedures Surgical History Date Name Laterality Status Provider Name and Address Organization Details Recorded Time excision of lipoma completed Alma Claros [facility] 05/01/2024 11:40:53 Imaging Results None [...] mass index (BMI) Body weight Body temperature Heart rate Oxygen saturation Oxygen saturation in Arterial blood by Pulse oximetry Respiratory rate Heart rate Systolic And Diastolic Systolic And Diastolic Provider Name and Address Organization Details Last Updated DateTime 5 194.31 cm 31.6 kg/m2 553401. 49 g 98.8 [degF] 113 /min 98 % 98 % 18 /min 102 /min 175/112 mm[Hg] 150/105 mm[Hg] Tiffany ESPINAL - [facility] 5 09:01:41 Date Recorded Body height Body mass index (BMI) Body weight Provider Name and Address Organization Details Last Updated DateTime 03/11/2025 194.31 cm 31.4 kg/m2 898326.61 g Kell Navas [facility] 03/11/2025 12:00:44 Date Recorded Body height Body weight Body mass index (BMI) Provider Name and Address Organization Details Last Updated DateTime 03/26/2025 194.31 cm 414041.61 g 31.4 kg/m2 Nicolle Henderson [facility] 03/26/2025 09:19:08 Date Recorded Body height Body mass index (BMI) Body weight Provider Name and Address Organization Details Last Updated DateTime 04/16/2025 198.12 cm 30.2 kg/m2 962615.61 g Kathleen Gonsalves [facility] 04/16/2025 09:29:19 Date Recorded Body height Body mass index (BMI) Body weight Body temperature Oxygen saturation Oxygen saturation in Arterial blood by Pulse oximetry Respiratory rate Systolic And Diastolic Systolic And Diastolic Provider Name and Address Organization Details Last Updated DateTime 198.12 cm 30 kg/m2 380501. 02 g 98.8 [degF] 96 % 96 % 16 /min 120/96 mm[Hg] 120/92 mm[Hg] Austin Lyle [facility] 12:23:27 Social History Question Answer Notes LastModified by Organizat ion Details LastModified Time Tobacco Smoking Status Former Smoker Tiffany Lyle [facility] 04/08/2024 11:44:36 Do You Have An Advance Directive? No [email or web address] Information not available 04/08/2024 How Many Years Have You Consumed Alcohol? 22 [email or web address] Information not available 04/23/2025 Do You Wear A Helmet When Biking? No Information not available 04/08/2024 Are You Blind Or Do You Have Difficulty Seeing? No Information not available 04/08/2024 Is Blood Transfusion Acceptable In An Emergency? Yes [email or web address] Information not available 04/08/2024 What Is Your Level Of Caffeine Consumption? Moderate Information not available 05/01/2024 How Much Tobacco Do You Chew? 1/day [email or web address] Information not available 04/23/2025 Have You Been To An Area Known To Be High Risk For COVID-19? No [email or web address] Information not available 04/08/2024 Are You Deaf Or Do You Have Serious Difficulty Hearing? No [email or web address] Information not available 04/08/2024 What Type Of Diet Are You Following? REGULAR [email or web address] Information not available 04/08/2024 Which Illicit Or Recreational Drugs Have You Used? HEROINE, OXY, FENTNYL, XANAX Pt Reports He Hasn't Used In Over A Year. GLADIS Lester [email or web address] Information not available 04/23/2025 What Is The Highest Grade Or Level Of School You Have Completed Or The Highest Degree You Have Received? DO03422-0 [email or web address] Information not available 04/08/2024 Diabetic Eye Exam 03/25/2025 [email or web address] Information not available 04/23/2025 In The Past 6 Months Have You Fallen No [email or web address] Information not available 04/08/2024 Have You Ever Been Tested For Hepatitis C Yes [email or web address] Information not available 04/08/2024 Have You Had A Blood Transfusion Before 1991? No [email or web address] Information not available 04/08/2024 Have You Had Prison Keeper Dialysis? No [email or web address] Information not available 04/08/2024 Have You Ever Used Injectable Drugs, Even Once? Yes [email or web address] Information not available 04/08/2024 Do You Have Tattoos Or Body Piercings? Yes Information not available 04/08/2024 Have You Had Close Contact With An Individual With Hepatitis C? No Information not available 04/08/2024 Have You Ever Had Sex For Drugs Or Money? No [email or web address] Information not available 04/08/2024 Have You Ever Had Unprotected Sex? Yes [email or web address] Information not available 04/08/2024 Have You Been Incarcerated For Longer Than 6 Months? No Information not available 04/08/2024 Have You Tested Positive For HIV? No Information not available 04/08/2024 Do You Have A History Of Fist Fighting Or Combat Experience? Yes Information not available 04/08/2024 Medication List Reconciled Yes [email or web address] Information not available 04/08/2024 What Number (0-10) [...] No New Appt. To Report. GLADIS Lester [email or web address] Information not available 07/31/2024 Sexual Orientation Straight Or Heterosexual [email or web address] Information not available 04/08/2024 Gender Identity Male [email or web address] Informati on not available 04/08/2024 Eye Exam 03/09/2024 Not Recently- GLADIS Lester 04/23/25 Information not available 04/08/2024 Do You Feel Safe Yes [email or web address] Information not available 04/08/2024 What Was The Date Of Your Most Recent Tobacco Screening? 04/23/2025 Information not available 04/23/2025 How Many Children Do You Have? 2 [email or web address] Information not available 04/08/2024 Do You Use Protection During Sex? Always [email or web address] Information not available 04/08/2024 What Is Your Relationship Status? [email or web address] Information not available 04/08/2024 Do You Use Your Seat Belt Or Car Seat Routinely? Yes [email or web address] Information not available 04/08/2024 Are You Sexually Active? Yes Information not available 04/08/2024 At What Age Did You Start Smoking Tobacco? 15 Information not available 04/23/2025 How Much Tobacco Do You Smoke? No [email or web address] Information not available 04/23/2025 How Many Years Have You Smoked Tobacco? 10 Information not available 04/23/2025 Do You Have Difficulty Walking Or Climbing Stairs? No Information not available 05/01/2024 Sex: Male Functional Status Question Answer Note LastModified by Organizat ion Details LastModified Time Do you use any illicit or recreational drugs? No [email or web address] Information not available 04/16/2025 Do you or have you ever used any other forms of tobacco or nicotine? Yes Information not available 04/10/2024 What is your level of alcohol consumption? Occasional [email or web address] Information not available 04/23/2025 Do you or have you ever used smokeless tobacco? Currently chews tobacco twice monthly only when doing yard work. GLADIS lester Information not available 04/23/2025 Are you currently employed? No [email or web address] Information not available 04/08/2024 Do you have transportation difficulties? No Information not available 05/01/2024 Are you able to walk independently without assistance or assistive devices? YESWOREST [email or web address] Information not available 04/08/2024 Do you have difficulty doing errands alone? No Information not available 04/08/2024 Are you able to care for yourself independently? Yes [email or web address] Information not available 04/08/2024 Do you have difficulty dressing, bathing, grooming, or toileting? No [email or web address] Information not available 04/08/2024 Do you or have you ever used e-cigarettes or vape? Current user of electronic cigarettes twice monthly only when doing yard work. GLADIS lester Information not available 04/23/2025 What is your exercise level? Moderate Information not available 04/08/2024 Mental Status Question Answer Note LastModified by Organizat ion Details LastModified Time Do you feel stressed (tense, restless, nervous, or anxious, or unable to sleep at night)? [email or web address] Information not available 03/11/2025 Do you have difficulty concentrating, remembering or making decisions? No [email or web address] Information no t available 04/08/2024 Family History Relationship Description Onset Age of this Age Resolved Age Notes LastModified by Organization Details LastModified Time Unspecified Relation Hypertensive disorder [email or web address] Not available 2023 11:42:54 Medical History Condition Response Other N Gout N Kidney Stones N Blood Diseases N Hyperthyroidism N Blood Transfusion N Depression N COPD N Incontinence N Edema N Endocrine Disorders N Anxiety Disorder N Muscle, Joint, or Bone Problems N Obesity N Vision or Eye Problems N Arthritis N Auditory Hallucinations N Infertility N Cancer N Varicosities N Stroke N Fibromyalgia N Headaches N Kidney Disease [...] N Thyroid Disease N Breast Cancer N Lung Disease N Hypothyroidism N Defects or Inherited Disease N Developmental or Behavioral Disorders N Breast Problem N Difficulty Swallowing N Anesthesia Complications N Deep Vein Thrombosis N Meniere's disease N Hearing Loss N Head Injury/Concussion N Congenital Anomalies N Abnormal Pap Smear N Endometriosis N Bladder or Kidney Problems N High Cholesterol N Liver Disease N Nervous System Disorder N Psychiatric/Mental Health Condition N Schizophrenia N Allergies/Hayfever N Parkinson's Disease N GI Problems N ADD/ADHD Y Anemia N Colon Polyps N Heart Attack (ID) N Ovarian Cancer N Diabetes N Bedwetting N Seizures/Epilepsy N Amnesia N Congestive Heart Failure (CHF) N Eczema N Abuse/Domestic Violence N Diverticulitis N Dementia N Cardiovascular N Tourette Syndrome N Pre-Eclampsia N Hypertension N Osteoporosis N Immunizations Vaccine Type Date Status Note Provider Nam e and Address Organization Details Recorded Time Influenza, split virus, quadrivalent, preservative 9 completed Alma Counts [facility] 05/01/2024 11:37:39 Influenza, adjuvanted, trivalent, PF 7 completed Alma Counts [facility] 05/01/2024 11:37:39 COVID-19, mRNA, LNP-S, PF, 100 mcg/0.5mL dose or 50 mcg/0.25mL dose 1 completed Alma Counts [facility] 05/01/2024 11:37:39 COVID-19, mRNA, LNP-S, PF, 100 mcg/0.5mL dose or 50 mcg/0.25mL dose 1 completed Alma Counts [facility] 05/01/2024 11:37:39 Tdap 9 completed Alma Counts null, [facility] 05/01/2024 11:37:39 Tdap 4 completed Alma Counts null, [facility] 05/01/2024 11:37:39 Influenza, split virus, trivalent, preservative 4 completed Alma Counts null, [facility] 05/01/2024 11:37:40 Influenza, split virus, trivalent, preservative 7 completed Alma Counts null, [facility] 05/01/2024 11:37:40 Influenza, split virus, trivalent, PF 5 completed Alma Counts null, [facility] 05/01/2024 11:37:40 Influenza, split virus, trivalent, PF 6 completed Alma Counts null, [facility] 05/01/2024 11:37:40 Hep B, adult 9 completed Alma Counts null, [facility] 05/01/2024 11:37:40 Hep A, adult 9 completed Alma Counts null, [facility] 05/01/2024 11:37:40 Influenza, split virus, quadrivalent, PF 0 completed Alma Counts null, [facility] 05/01/2024 11:37:40 Influenza, MDCK, trivalent, PF 4 completed Alma Counts null, [facility] 05/01/2024 11:59:05 HPV9 4 completed MARILEE HOUSTON, CRYS [address], [address], [facility] 05/01/2024 20:39:13 HPV9 5 completed Gisselle Chandler null, [facility] 07/31/2024 11:49:18 HPV9 5 completed MARILEE HOUSTON NP [address], [address], [facility] 09/02/2024 16:53:51 Hep B, adult 5 completed Nicolle Henderson [facility], [facility] 10/30/2024 11:38:51 Hep B, adult 5 completed Tiffany Lyle [facility], [facility] 11/27/2024 09:40:14 Hep B, adult 5 completed Austin Lyle [facility], [facility] 04/23/2025 13:19:24 Past Encounters Encounter ID Performer Location Encounter Start Date Encounter Closed Date Diagnosis/Indication Diagnosis SNOMED-CT Code Diagnosis ICD10 Code Diagnosis IMO Codes Diagnosis Note [id number] Akil Babin DO [facility] [address] [place] [address] 04/03/2024 16:00:06 04/07/2024 14:26:01 Opioid dependence 79775249 F11.20 We discussed opioid addiction in general.We reviewed treatment options including methadone, buprenorph ine, and naltrexone Patient requests buprenorph ine and I agree that this is good optionWe reviewed how to take the medication Will restart with previous dose of 24mg per day.We reviewed overdose risk when combined with other sedating substances and medication sWe reviewed overdose and narcan-the y have narcan at home New Rx sent for PRN use.UDS today, sent to lab.Discus sed counseling and peer support available. Continue counsellin g as desired.Ke ep follow ups with specialist (s).PDMP reviewed: oxycodone 03/24/24 otherwise buprenorph ine.Follow up in 1 week Diet education 84407050 Z71.3 Healthy diet recommende d with increased green vegetables (50% of plate) Exercises education, guidance, and counseling 976508444 Z71.82 Recommend exercise of at least 150 minutes per week, 10 minutes minimum uninterrup giancarlo. Finding of body mass index 795671840 Z68.27 BMI 27 Bipolar disorder 9058923 4 F31.9 C-SSRS SCREENER/T RIAGE Ask Questions 1 and 21) Have you wished you were or wished you could go to sleep and not wake up? No2) Have you actually had any thoughts of killing yourself? No If YES to 2, ask questions 3, 4, 5, and 6. If NO to 2, go directly to question 6.3) Have you been thinking about how you might do this?e.g. I thought about taking an overdose but I never made a specific plan as to when where or how I would actually do it . and I would never go through with it. 4) Have you had these thoughts and had some intention of acting on them?as opposed to I have the thoughts but I definitely will not do anything about them. 5) Have you started to work out or worked out the details of how to kill yourself? Did you intend to carry out this plan?6) Have you ever done anything, started to do anything, or prepared to do anything to end your life? Lifetime:W as this within the past 3 months?Exa mples: Took pills, tried to shoot yourself, cut yourself, or hang yourself, took out pills but didn t swallow any, held a gun but changed your mind or it was grabbed from your hand, went to the roof but didn t jump, collected pills, obtained a gun, gave away valuables, wrote a will or suicide note, etc. RESPONSE PROTOCOL1) Order for Behavioral Health Referral. Give patient 988 Suicide/Li f[facility] Crisis Card.2) Order for Behavioral Health Referral. Give patient 988 Suicide/[facility] f[facility] Crisis Card.3) Order for Behavioral Health Referral. Give patient 988 Suicide/Li feline Crisis Card.4) Behavioral Health Consultati on (warm handoff) and Patient Safety Precaution s. If Behavioral Health Maintenance Helper ([facility]) is not available please complete paper copy of C-SSRS Triage with [facility] (located in [place]). Order for [facility] Scheduled Handoff.5) Behavioral Health Consultati on (warm handoff) and Patient Safety Precaution s. If Behavioral Health Maintenance Helper ([facility]) is not available please complete paper copy of C-SSRS Triage with [facility] (located in [place] [facility]). Order for [facility] Scheduled Handoff.6) Lifetime: Order for Behavioral Health Referral. Give patient 988 Suicide/[facility] f[facility] Crisis Card.6) Within the past 3 month: Behavioral Health Consultati on(warm handoff) and Patient Safety Precaution s. If Behavioral Health Maintenance Helper (C) is not available please complete paper copy of C-SSRS Triage with JO[facility] (located in [facility]). Order for [facility] Scheduled Handoff. States he has no desire to kill himself, committed suicide and he has raised his kids alone for 20 years. Reports he would not do that.Feels well on seroquel monotherap y. [id number] Akil Babin, DO [facility] [place] [address] [place] [address] 04/10/2024 11:21:40 04/15/2024 08:21:55 Opioid dependence 64050159 F11.20 UDS today:sent to labUDS PRIOR: not available for reviewCont inue same dose of buprenorph ine. Try taking 1.5 tabs BID instead of 8mg TID. Instructed patient to take only as prescribed . Contact provider if this does not resolve sypmtoms. Questions encouraged and answered, verbalized understand ing.Follow up in 3 weeks.Cont inue counsellin g as desired.Ke ep follow ups with specialist (s).Rafael brown dose of buprenorph ine is: 24 mg/dPDMP reviewed: oxycodone 03/24/24 otherwise buprenorph ine. Bipolar disorder 6980544 4 F31.9 Feels well on seroquel monotherap y.PHQ is 0 today Venereal d isease screening 139503945 Z11.3 Blood and urine sent to lab to screen for venereal disease HIV screening 394765425 Z11.4 Blood drawn to screen for HIV [id number] Akil Babin DO [facility] [place] [address] [place] [address] 05/01/2024 11:18:24 05/05/2024 16:04:34 Opioid dependence 23522836 F11.20 UDS today:sent to labUDS PRIOR: BUP, NORBUP, NALOXONE, SeroquelCo ntinue same dose of buprenorph ine. Take only as prescribed .Follow up in 4 weeks.Cont inue counsellin g as desired.Ke ep follow ups with specialist (s).Rafael brown dose of buprenorph ine is: 24 mg/dPDMP reviewed: oxycodone 03/24/24 otherwise buprenorph ine, consistent . Bipolar disorder 1594662 4 F31.9 Feels well on seroquel monotherap y.PHQ is 1 today Hepatitis C antibody detected 294343525 Z86.19 Check RNA today. Tobacco us e cessation education 362461967 Z71.6 Discussed risks of smoking and benefits of cessation (briefly, less than 3 min) Active or passive immunization 465488409 Z23 Discussed gardasil, would like to have series.Fir st dose today 05/01/2024 Second dose 05/29/2024 Final dose 10/30/24 Long-term drug therapy 600323730 Z79.891 sti screen negativeCB C normalCMP unremarkab le.Hep A exposed/ immuneHep B not immune or exposedHep C Exposed, [id number] KENDY COOK DO [facility] [place] [address] [facility] [place] [address] 05/20/2024 15:53:49 05/21/2024 10:09:26 Bipolar disorder 75978573 F31.9 Attention deficit hyperactivity disorder 665757379 F90.9 [id number] Austin Foster [facility] [employer] [address] [facility],[address] [place] [address] 05/21/2024 15:12:42 05/21/2024 17:21:01 Food insecurity 650321561 Z59.41 Referred by [facility] Member:Binta Foster/ [address] [place] [phone] following is a list of community resources that may meet your specific needs. AGENCY INFORMASTI ON: [facility] [id number] [facility] [place], [place] [phone] [place] [address] [place] [address] in [place], [phone] [facility] 33508444 Z59. 87 Referred by [facility] Member:Binta Foster/ [address] [place] [phone] following is a list of community resources that may meet your specific needs. AGENCY INFORMASTI ON: Florian Sanders [address] [place], [place] [phone] [id number] Akil Babin DO [facility] [address] [facility] [place] [address] 06/04/2024 09:57:26 06/04/2024 17:23:18 Opioid dependence 04717283 F11.20 Establishe d with Sofie 9.26.24Has been off and on suboxone for 10+ yearsHx of heroin use Has 2 kids - diedL[place] he is pretty good about taking his meds Will do 2nd Gardasil injection at next visit as his shoulder is sore he says F/u in 4 weeks Bipolar disorder 9576464 4 F31.9 Was dx in the 90's - told him he was manic depressive as wellAt 18 was dx with ADHD - was put on meds and able to sleep and calm him downSince his passed he has been trying to keep his ADHD in check for his kidsNo clear manic episodes. Both patient and I agree that he likely does not have bipolar. Attention deficit hyperactivity disorder 581306980 F90.9 Long history since childhood of ADHD. Hyperactiv e. Problems focusing. Clearly hyperactiv e in clinic today. He will bring in self rating scores. Has been on Adderall at a state. Will increase to 30 mg today at his request I think that is reasonable . Adderall really helps him focus and improves his life. Certainly history of addiction is not a contraindi cation for appropriat e ADHD treatment. I see him moving his head about and wiggling in the chair very frequently in clinic today. We discussed possible reaction to the Seroquel. He says this is chronic and his mom used to complain of this when he was a kid so this is likely symptom of ADHD not side effects of his Seroquel [id number] Akil Babin DO [facility] [address] [place] [address] 06/30/2024 10:16:12 06/30/2024 11:41:11 Opioid dependence 58393289 F11.20 Current UDS: none d/t phone visitPrior UDS: bup, norbup, seroquelPD MP with our recent fills only Holidays are okayDoing good on Suboxone Needs 2nd Gardasil at F/u F/u in 1 month meds workign well f/u next month with Sofie Bipolar disorder 6185042 4 F31.9 Attention deficit hyperactivity disorder 479812888 F90.9 Last visit Adderall increased to 30 mgPatient states that he thinks this dose is just rightHe has gained 2 pounds he saysEveryt marina is running smooth - routine is goodDiscus sed hanging at this dose to see how he does holidays goign well [id number] Akil Babin, [facility] [address] [place] [address] 07/15/2024 13:41:39 07/15/2024 15:51:50 Opioid dependence 32894776 F11.20 Current UDS: none d/t phone visitPrior UDS: bup, norbup, seroquelPD MP with our fills only Needs 2nd Gardasil at f/u this is not a MAT visit today Attention deficit hyperactivity disorder 157927149 F90.9 Patient states he could be betterPati ent wants to raise his adderall to 50mgSympto ms that aren't well controlled are - he is real systematic , if his routine isn't normal it throws him off, afraid to make a mistake. Has a lot on his plate lately. Not wanting to leave the houseStart ed to reminisce and he was arguing with his boysAbout 3pm is when his adderall starts wearing offGoes to bed about 9:30pm and gets up at 5amHe does NA meetings on Wednesdays When asked about counseling , he doesn't know if he could do thisDiscus sed taking a quick acting medication instead of raising his long acting adderallPa tient agreeable to adding a short acting medicatonH as f/u with Sofie next weekPrior urine was negative for Adderall also will need to follow that closely and also consider a urine and oral swab at follow-up Bipolar disorder 6523071 4 F31.9 Full diagnosis unclear. Previously had not thought he had true bipolar. It sounds like he could certainly have some OCD. Possible PTSD since his . If no better with this extra IR Adderall strongly consider him seeing Brandt for more in-depth diagnostic evaluation He does not think he can do counseling colby riley at this point [id number] Akil Babin, DO [facility] [address] [place] [address] 07/24/2024 11:11:12 07/28/2024 08:33:53 Opioid dependence 94299948 F11.20 UDS today: deferred due to virtual visit.UDS PRIOR: 06/04/2024 BUP, NORBUP, NALOXONE, SeroquelCo ntinue same dose of buprenorph ine. Take only as prescribed .Follow up in 4 weeks.Cont inue counsellin g as desired.Ke ep follow ups with specialist (s).Rafael brown dose of buprenorph ine is: 24 mg/dPDMP reviewed: consistent Attention deficit hyperactivity disorder [id number] F90.9 Patient states he is doing much better at the current dose.He is taking the 30mg XR at 530am and the 20mg at 2pm daily.Prio r urine was negative for Adderall also will need to follow that closely and also consider a urine and oral swab at follow-upw as unable to have transporta tion here today but will come in next week. Bipolar disorder 8667062 4 F31.9 He states he is feeling good with current dose of adderall but would like to see Brandt in September.PHQ and RAMBO are zero. Tobacco us e cessation education 773985504 Z71.6 Discussed risks of smoking and benefits of cessation (briefly, less than 3 min)chewin g tobacco, cutting down on this a littl Active or passive immunization 868980467 Z23 Discussed gardasil, would like to have series.Fir st dose today 05/01/2024 Second dose DUE NOWFinal dose 10/30/24Wil l give next week. Suitable f or telehealth monitoring 053153144 Z78.9 Virtual visit with AUDIO ONLY. Pt was at home and provider at [facility] in [place] MOPt was on a phone visit that lasted 6 minutes and 25 seconds [id number] Akil Babin, [facility] [place] [address] [place] [address] 07/31/2024 10:26:50 08/04/2024 18:20:00 Opioid dependence 96782823 F11.20 UDS today: sent to labUDS PRIOR: 06/04/2024 BUP, NORBUP, NALOXONE, SeroquelCo ntinue same dose of buprenorph ine. Take only as prescribed .Follow up in 4 weeks.Cont inue counsellin g as desired.Ke ep follow ups with specialist (s).Rafael brown dose of buprenorph ine is: 24 mg/dPDMP reviewed: consistent Attention deficit hyperactivity disorder 578393207 F90.9 Patient states pharmacy was out of 20mg and he had to take (2) 10mg and states the 20mg worked a lot better.He is taking the 30mg XR at 530am and the 20mg at 2pm daily.Nelly petersen urine was negative for Adderall last UDS, will need to follow that closely and plan a urine and oral swab today. Bipolar disorder 4642927 4 F31.9 He states he is feeling good with current dose of adderall but would like to see Brandt in September.They have attempted to reach him to schedule this but have not been able to reach him.Ashley rodriguez to reschedule this was completed. Tobacco us e cessation education 299031676 Z71.6 Discussed risks of smoking and benefits of cessation (briefly, less than 3 min)chewin g tobacco, cutting down on this a little Active or passive immunization 703511042 Z23 Gardasil series:Fir st dose today 05/01/2024 Second dosepast due, will give today 07/31/2024F inal dose due in 12 weeks, 2024 Essential hypertension 59371577 I10 baseline EKGOnly had 3 hours of sleep last nightUsed to take clonidine, has been out for a month or so.He was prescribed clonidine for BP Impacted c erumen of bilateral ears [id number] 223996 H61.23 Discussed avoiding use of Qtips and using debrox [id number] Austin Foster [facility] [employer] [address] [facility],[address] [place] [address] 07/31/2024 10:58:07 07/31/2024 15:02:17 [id number] Akil Babin, [facility] [address] [place] [address] 08/28/2024 10:05:36 09/01/2024 08:34:04 Opioid dependence 25940859 F11.20 UDS today: deferred due to virtual visit.UDS PRIOR: 07/31/2024 adderall, bup, norbup, naloxone, seroquel, ETOH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
--- OUTSIDE RECORDS SUMMARY | 2025-04-26 23:24 | XMS_ITS | Patient Health Record ---
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 Name Role Phone Tyrone Mendoza Primary Care Provider [phone] Reason For Referral No Information Medications Medication SIG (Take, Route, Frequency, Duration) Notes Start Date End Date Status ALPRAZolam 0.25 MG Tablet 1 tablet Orall y Twice a day Active Keppra XR 500 MG Tablet Extended Release 24 Hour 2 tablets Orally twice a day; Duration: 30 day(s) Active cloNIDine HCl 0.1 MG Tablet 1 tablet Orally three times per day; Duration: 30 day(s) 07/16/2019 Active cloNIDine HCl 0.1 MG Tablet 1 tablet Orally three times per day; Duration: 30 day(s) Active CeleXA 20 MG Tablet 1 tablet Orally Once a day Active SEROquel 200 MG Tablet 1 tablet at bedti il Orally Once a day; Duration: 30 day(s) Active Social History Tobacco Use: Social History Observation Description Date Details (start date - stop date) Current Smoker NA - NA Social History Drugs/Alcohol: Social Info Question Answer Notes Alcohol Screen (Audit-C) Did you have a drink containing alcohol in the past year? No Points 0 Interpretation Negative Drugs Have you used drugs other than those for medical reasons in the past 12 months? Yes Marijuana? Yes Household: Social Info Question Answer Notes Household Marital status: Tobacco Use: Social Info Question Answer Notes xTobacco Use/Smoking Are you a current smoker How often do you smoke cigarettes? every day How many cigarettes a day do you smoke? - Are you interested in quitting? Not ready to quit Additional Findings: Tobacco User Chews tobacco Tobacco use other than smoking: Are you an other tobac co user? Yes Problems Problem Type SNOMED Code ICD Code Onset Dates Problem Status W/U Status Risk Notes Problem Generalized anxiety disorder (17583099) Generalized anxiety disorder (300.02) 06/02/20 19 Problem resolved confirmed [id number] Problem Bipolar 1 disorder (557510109) Bipolar 1 disorder (F31.9) Active confirmed Problem Generalized epilepsy (17520240) Grand mal seizure disorder (G40.409) Active confirmed Problem Bipolar affective disorder, currently manic, moderate (246529644) Bipolar 1 disorder with moderate karla (F31.12) Active confirmed Problem Insomnia (922980545) Insomnia (307.41) 06/02/20 Problem resolved confirmed [id number]- Problem Grand mal seizure disorder (345.10) 06/02/20 Problem resolved confirmed [id number]- Problem Essential hypertension (47132818) Essential hypertension (401.1) 06/02/20 Problem resolved confirmed [id number] 11- Plan Of Treatment No Information Insurance Providers Payer Name Payer Address Payer Phone Subscriber Number Group Number Insured Name Patient Relationship to Insured Coverage Start Date Coverage End Date [place] [address] [place] [address] [id number] Kyle Cartwright Self - patient is the insured Medical (General) History Medical History History ICD Code Hypertension Grand Mal seizures Generalized anxiety disorder Insomnia osteoarthritis affecting left leg Bipolar disorder Surgical History Surgery Date(Month/Year) Lipoma removed, right lower lumbar regio n
[2025-04-26 23:53] LABS: Hematocrit 46.3 % (37-53); Hemoglobin 15.50 g/dL (11.27-16.99); Mean Corpuscular HGB Conc 33.5 g/dL (30-55); Mean Corpuscular Hemoglobin 30.3 pg (27-33); Mean Corpuscular Volume 90.6 fl (82-101); Nucleated Red Blood Cells % 0 %; Platelet Count 177 10^3/cmm (157-399); Red Blood Count 5.11 10^6/uL (3.85-5.65); White Blood Count 11.53 10^3/uL (3.29-11.43)
[2025-04-27] VITALS (23 sets, daily range): BP systolic 124–168; BP diastolic 73–98; PULSE 79–129; RESP 13–24; TEMP 36.7; O2SAT 88–99
[2025-04-27 00:04] LABS: INR 1.04 (0.8-1.2); Prothrombin Time 14.40 SECONDS (12.1-14.9)
[2025-04-27 00:12] LABS: Acetaminophen < 5.0 ug/mL (10-30); Alanine Aminotransferase 27 U/L (0-41); Albumin Level 5.2 g/dL (3.5-5.2); Alcohol Level < 10 mg/dL (0-10); Alkaline Phosphatase 144 U/L (40-130); Blood Urea Nitrogen 22 mg/dL (6-20); Calcium 9.5 mg/dL (8.5-10.5); Carbon Dioxide 22 mmol/L (22-29); Chloride 101 mmol/L (98-107); Globulin 3.1 g/dL (1.3-4.6); Glucose 96 mg/dL (65-115); Osmolality Calculated 289 mOsm/kg (285-295); Salicylate < 0.3 mg/dL (3-10); Sodium 138 mmol/L (136-145); Total Protein 8.3 g/dL (6.6-8.7)
[2025-04-27 00:13] LABS: Anion Gap 20.9 (5-19); Aspartate Amino Transferase 45 U/L (0-40); Potassium 5.9 mmol/L (3.5-5.1)
[2025-04-27] MEDS: haloperidol inj 5 mg/mL INJ 1 mL IM ×2 (00:23→17:04)
[2025-04-27] MEDS: LORazepam 1 MG/0.5 ML injection 2 MG IM ×2 (00:23→17:04)
--- NOTE | 2025-04-27 00:25 | ED.C_ITS ---
HPI - Psych 2 General: Chief Complaint: Psychiatric Symptoms Stated Complaint: MHE Time Seen by Provider: 04/26/25 23:19 Source: patient and EMS Mode of arrival: EMS Limitations: no limitations History of Present Illness: 44-year-old male well-known to the ER carreno s a history of psychosis, alcohol abuse, drug abuse. Patient is here with EMS making suicidal statements states that he does not want to live he has a plan of taking rat poison to try to kill himself. Patient states he took 3 of his Xanax tonight. Patient here is being combative argumentative and not compliant. Associated symptoms: Reports depression and suicidal ideation Related Data Home Medications ?Medication ?Instructions ?Recorded ?Confirmed buprenorphine 8 mg-naloxone 2 mg 1.5 tab sublingual BI D 12/05/24 12/05/24 sublingual tablet dextroamphetamine-amphetamine 30 30 mg PO .@2PM 12/05/24 mg tablet dextroamphetamine-amphetamine ER PO 12/08/24 30 mg 24hr capsule,extend release Previous Rx's ?Medication ?Instructions ?Recorded quetiapine 300 mg tablet (Seroquel) 600 mg (2 x 300 mg ) PO BEDTIME 30 12/08/24 days #60 tabs Allergies Allergy/AdvReac Type Severity Reaction Status Date / Time codeine Allergy Unknown Verified 02/20/24 20:01 ketorolac (From Toradol) Allergy ALGY-Hives Verified 02/20/24 20:01 lidocaine Allergy ALGY-Hives Verified 02/20/24 20:01 Review of Systems 2 Psych: Reports: depression and suicidal ideation [facility] ED 2 PFSH: Medical History (Updated 04/27/25 @ 05:09 by Mar Black MD) Hepatitis Chronic back pain Depression Substance abuse Suicide attempt Intermittent explosive disorder Anxiety PTSD (post-traumatic stress disorder) Bipolar disorder Seizure disorder Suicidal ideation Alcoholism Rectal bleed IBS (irritable bowel syndrome) GI bleed Surgical History History of back surgery Social History Smoking and tobacco/nicotine status: current every day tobacco/nicotine user smokeless tobacco Smokeless tobacco user: snuff Smokeless tobacco details: 1 can/2 weeks Quit status (tobacco/nicotine): not considering quitting Second hand smoke exposure: No Current gender identity: Male Physical Exam 2 Const: COMMON NORMALS: patient oriented x3 HENMT: COMMON NORMALS: normocephalic and atraumatic HEAD & SCALP: n ormocephalic and atraumatic Eye: COMMON NORMALS: Equal, round and reactive pupils present and EOMs intact bilaterally PUPIL: Yes Equal, round and reactive pupils present Neck/C-Spine: COMMON NORMALS: full ROM and supple Chest: COMMONS NORMALS: normal inspection of the chest and normal palpation of entire chest wall Resp: COMMON NORMALS: normal respiratory effort, No retractions, No use of accessory muscles and clear to auscultation bilaterally AUSCULTATION: clear to auscultation bilaterally Cardio: COMMON NORMALS: regular rate, regular rhythm and No murmurs present (Cardio) RATE: regular rate RHYTHM: regular rhythm GI: COMMON NORMALS: Normal to inspection, nondistended, normoactive bowel sounds present, Soft to palpation, non-tender and no masses PALPATION: Yes Soft to palpation Neuro: COMMON NORMALS: patient oriented x3, moves all extremities and no focal motor deficits Psych: ATTITUDE: Yes uncooperative THOUGHT CONTENT: Yes Suicidality present Skin: COMMON NORMALS: no rashes or lesions noted and no wounds GENERAL SKIN EXAM: no rashes or lesions noted Face to Face: Restrn/Seclusion Events leading up to initiation: Verbalizing threat to self or others Evaluation of patient's immediate situation: Alert and oriented Patient reaction since intervention applied: Continued attempts/displays harmful behavior Recent labs reviewed: Yes Review of medications: Yes Patient's current medical/behavioral condition: No new concerns since last ROS Need for restraint or seclusion is: Continued Attending notified: Yes Course 2 Reevaluation(s): Reevaluation #1: Patient is being extremely uncooperative and combative did try to de-escalate with him here. Patient had 2 pills on him while trying to restrain him and did take them they are Adderall's. Patient was placed in 4 point restraints and given 400 of ketamine due to his violent behavior Time: 00:44 Vital Signs: Vital signs: Vital Signs Temperature 97.5 F L 04/26/25 23:19 Pulse Rate 81 04/27/25 04:45 Respiratory Rate 16 04/27/25 04:45 Blood Pressure 130/76 04/27/25 04:45 Pulse Oximetry 92 04/27/25 04:45 Oxygen Delivery Me thod Room Air 04/27/25 04:45 Oxygen Flow Rate 6 04/27/25 03:15 [facility] - Psych Medical Decision Making Patient presents for suicidal ideation. Patient's blood work here is normal EKG here is normal as well he did hit his head had abrasion to his head head CT shows no acute intracranial process. I did review all his labs which are normal he is medically cleared at this time. I spoke to Dr. Erwin placed him on a 96-hour hold will admit to the psych [facility]. Patient did become combative. Had to be chemically and physically restrained but has calm down currently. Medical Records I reviewed the patient's medical records. Lab Data I reviewed the patient's lab results. 04/26/25 23:47 04/27/25 02:[address] 04/26/25 23:20 IMPRESSION: Negative for intracranial hemorrhage. No identified acute intracranial pathology. Chest X-Ray 04/27/25 01:54 IMPRESSION: No visualized acute cardiopulmonary process. Laboratory Results WBC 11.53 10^3/uL (3.29-11.43) H 04/26/25 23:47 RBC 5.11 10^6/uL (3.85-5.65) 04/26/25 23:47 Hgb 15.50 g/dL (11.27-16.99) 04/26/25 23:47 Hct 46.3 % (37-53) 04/26/25 23:47 MCV 90.6 fl (82-101) 04/26/25 23:47 MCH 30.3 pg (27-33) 04/26/25 23:47 MCHC 33.5 g/dL (30-55) 04/26/25 23:47 RDW 12.7 % (12.1-15.1) 04/26/25 23:47 Plt Count 177 10^3/cmm (157-399) 04/26/25 23:47 MPV 11.6 fL (7.4-10.4) H 04/26/25 23:47 Neut % (Auto) 79.0 % 04/26/25 23:47 Lymph % (Auto) 11.4 % 04/26/25 23:47 [place] % (Auto) 8.5 % 04/26/25 23:47 Eos % (Auto) 0.2 % 04/26/25 23:47 Baso % (Auto) 0.5 % 04/26/25 23:47 Neut # (Auto) 9.10 10^3/uL (1.8-7.7) H 04/26/25 23:47 Lymph # (Auto) 1.3 10^3/uL (0.8-4.8) 04/26/25 23:47 [place] # (Auto) 1.0 10^3/uL (0.2-0.9) H 04/26/25 23:47 Eos # (Auto) 0.0 10^3/uL (0.0-0.8) 04/26/25 23:47 Baso # (Auto) 0.1 10^3/uL (0.0-0.1) 04/26/25 23:47 Nucleated RBC % (auto) 0 % 04/26/25 23:47 Nucleated RBCs # 0.0 /100WBC 04/26/25 23:47 PT 14.70 SECONDS (12.1-14.9) 04/27/25 02:26 INR 1.07 (0.8-1.2) 04/27/25 02:26 Sodium 141 mmol/L (136-145) 04/27/25 02:26 Potassium 4.3 mmol/L (3.5-5.1) 04/27/25 02:26 Chloride 104 mmol/L (98-107) 04/27/25 02:26 Carbon Dioxide 23 mmol/L (22-29) 04/27/25 02:26 Anion Gap 18.3 (5-19) 04/27/25 02:26 BUN 24 mg/dL (6-20) H 04/27/25 02:26 Creatinine 1.3 mg/dL (0.7-1.2) H 04/27/25 02:26 GFR Calculation 60.2 mL/min (90-130) L 04/27/25 02:26 Glucose 83 mg/dL (65-115) 04/27/25 02:26 POC Glucose 82 mg/dL (70-110) 04/27/25 01:35 Calculated Osmolality 295 mOsm/kg (285-295) 04/27/25 02:26 Calcium 9.2 mg/dL (8.5-10.5) 04/27/25 02:26 Total Bilirubin 0.6 mg/dL (0.15-1.2) 04/26/25 23:47 AST 45 U/L (0-40) H 04/26/25 23:47 ALT 27 U/L (0-41) 04/26/25 23:47 Alkaline Phosphatase 144 U/L (40-130) H 04/26/25 23:47 Total Protein 8.3 g/dL (6.6-8.7) 04/26/25 23:47 Albumin 5.2 g/dL (3.5-5.2) 04/26/25 23:47 Globulin 3.1 g/dL (1.3-4.6) 04/26/25 23:47 Salicylates < 0.3 mg/dL (3-10) L 04/26/25 23:47 Urine Opiates Screen Negative ng/mL (Negative) 04/27/25 02:26 Acetaminophen < 5.0 ug/mL (10-30) L 04/26/25 23:47 Ur Barbiturates Screen Negative ng/mL (Negative) 04/27/25 02:26 Ur Phencyclidine Scrn Negative ng/mL (Negative) 04/27/25 02:26 Ur Amphetamines Screen Positive ng/mL (Negative) H 04/27/25 02:26 U Benzodiazepines Scrn Positive ng/mL (Negative) H 04/27/25 02:26 Urine Cocaine Screen Negative ng/mL (Negative) 04/27/25 02:26 U Marijuana (THC) Screen Negative ng/mL (Negative) 04/27/25 02:26 Ethyl Alcohol < 10 mg/dL (0-10) 04/26/25 23:47 All radiology interpretation(s) finalized by discharge EKG Data EKG 1: I personally reviewed and interpreted this EKG as follows: EKG interpretation date: 04/27/25 EKG interpretation time: 00:30 Interpretation: sinus tach hr [address] elevation qrs 106 qtc 414 Discharge Plan Discharge Patient Disposition: Admitted As Inpatient Clinical Impression: Suicidal ideation Condition: Stable Coding Level of Care Code ED [place] for Edmond Hwang
--- NOTE | 2025-04-27 00:39 | PC.NURSE ---
96 HH Pt notified of 96 HH by ER physician. Security x 2, police x 2, nursing staff x 4 at bedside. Pt is alert and not oriented to surroundings, pt refusing to cooperate with treatment and nursing staff. Numerous attempts made to redirect pt and change into scrubs. Pt belligerent and resistive to all forms of deescalation.
[2025-04-27] MEDS: ketamine 100 mg/mL Inj 5 mL 200 MG IM (01:07)
--- NOTE | 2025-04-27 01:33 | PC.NURSE ---
Addendum entered by Sarah Fox RN 04/27/25 02:09: these pills were given to [place] [employer] by security who were present when these were confiscated. Original Note: 5 pills of adderall 30 mg XR taken from patient's shoe. pt was able to swallow 1 but 4 were confiscated. informed MD of ingestion. pills given to security.
--- NOTE | 2025-04-27 01:54 | XRR_ITS ---
PROCEDURE INFORMATION: Exam: XR Chest Exam date and time: 04/27/2025 1:58 AM Age: 44 years old Clinical indication: Screening exam; Other screening; Medical clearance for psych transfer TECHNIQUE: Imaging protocol: Radiologic exam of the chest. Views: 1 view. COMPARISON: CR XR chest 1V portable [id number] 11/19/2021 7:51 PM FINDINGS: Lungs: Unremarkable. No consolidation. Pleural spaces: Unremarkable. No pleural effusion. No pneumothorax. Heart/Mediastinum: Unremarkable. No cardiomegaly. Bones/joints: Unremarkable. XR/XR chest 1V portable [id number] IMPRESSION: No visualized acute cardiopulmonary process.
--- NOTE | 2025-04-27 02:37 | PC.NURSE ---
spoke to poison control line. poison control pharmacist advised repeat ekg 2 hours from initial. pharmacist recommended benzodiazepines for supportive care if needed and sodium bicarbonate for a QRS >110. informed md of this information.
[2025-04-27 03:05] LABS: PCP Screen Urine Negative (Negative)
[2025-04-27 03:08] LABS: Anion Gap 18.3 (5-19); Blood Urea Nitrogen 24 mg/dL (6-20); Calcium 9.2 mg/dL (8.5-10.5); Carbon Dioxide 23 mmol/L (22-29); Chloride 104 mmol/L (98-107); Glucose 83 mg/dL (65-115); INR 1.07 (0.8-1.2); Osmolality Calculated 295 mOsm/kg (285-295); Potassium 4.3 mmol/L (3.5-5.1); Prothrombin Time 14.70 SECONDS (12.1-14.9); Sodium 141 mmol/L (136-145)
--- NOTE | 2025-04-27 04:17 | ECG_ITS ---
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 Measurements Intervals [place] Rate: 83 P: -2 NH: 168 QRS: 5 QRSD: 102 T: 26 QT: 393 QTc: 462 Interpretive Statements SINUS RHYTHM Compared to ECG 04/27/2025 00:50:16 Sinus tachycardia no longer present Electronically Signed On 04-28-2025 19:24:12 CDT by Liliya Galaviz M.D. [email or web address]
--- NOTE | 2025-04-27 09:49 | PC.ADMIT ---
[address] Admission Note:Pt was brought to the ED by ambulance with SI and a plan to consume rat poison. His UDS was positive for Benzo and Meth. He became violent per reports in ED and was given Ativan, Haldol, and Ketamine along with having to be restrained. Pt is cooperative with assessment. He gets very emotional at times and then he will become elated. The patient,Kyle Cartwright,44 y/o, was given written information regarding hospital policies, unit procedures and contact persons. Patient's smoking status: current every day smoker. Vital Signs - 8 hr 04/27/25 02:00 04/27/25 02:15 04/27/25 02:30 Pulse Rate 102 H 101 H 102 H Respiratory Rate 18 19 H 18 Blood Pressure 124/78 Pulse Oximetry 99 96 96 Oxygen Delivery Method Nasal Cannula Nasal Cannula Nasal Cannula Oxygen Flow Rate 6 6 04/27/25 02:45 04/27/25 03:00 04/27/25 03:15 Pulse Rate 90 88 88 Respiratory Rate 16 Blood Pressure 141/86 Pulse Oximetry 96 97 97 Oxygen Delivery Method Nasal Cannula Nasal Cannula Nasal Cannula Oxygen Flow Rate 6 6 6 04/27/25 03:30 04/27/25 03:45 04/27/25 04:00 Pulse Rate 87 86 85 Respiratory Rate 16 15 15 Blood Pressure 128/86 127/81 125/77 Pulse Oximetry 93 92 92 Oxygen Delivery Method Room Air Room Air Room Air Oxygen Flow Rate 04/27/25 04:15 04/27/25 04:30 04/27/25 04:45 Pulse Rate 87 82 81 Respiratory Rate 16 16 Blood Pressure 130/83 131/76 130/76 Pulse Oximetry 92 92 92 Oxygen Delivery Method Room Air Room Air Room Air Oxygen Flow Rate 04/27/25 05:35 04/27/25 05:45 04/27/25 06:13 Pulse Rate 79 82 79 Respiratory Rate 13 14 Blood Pressure 128/81 137/87 133/84 Pulse Oximetry 94 94 94 Oxygen Delivery Method Room Air Oxygen Flow Rate 04/27/25 06:30 04/27/25 06:46 04/27/25 07:30 Pulse Rate 86 81 86 Respiratory Rate 18 Blood Pressure 139/89 139/86 144/93 Pulse Oximetry 95 93 97 Oxygen Delivery Method Room Air Room Air Room Air Oxygen Flow Rate 04/27/25 08:26 04/27/25 08:28 Pulse Rate 84 Respiratory Rate 17 Blood Pressure 142/98 Pulse Oximetry 88 L Oxygen Delivery Method Room Air Oxygen Flow Rate
--- NOTE | 2025-04-27 12:27 | W.PM.NPUH&PS ---
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 level of care to which the patient is willing to commit. 3. Continue q-15 minute checks for safety 4. CIWA protocol. 5. Will restart Suboxone at 8/2 SL TID 6. Will restart Seroquel at 600mg at night. PDMP PDMP Reviewed: Not Reviewed Involuntary Hold Information Hold Status: Legal Status: 96 Hour Hold Date/Time Hold Expires: 05/01/2025 @ 0001 96 Hour Hold: 96 Hour Involuntary Admission: No Attestations NPU Medical Necessity Statement*: Inpatient hospitalization is medically necessary and the clinically appropriate intervention at this time. He will be in the hospital for over 2 midnights. We will monitor medications and make adjustments as indicated. The patient's likely length of stay 5-7 days. Coding Level of Care Code Acute Code for Chg Fwd Diagnoses Bipolar affective, manic, unspec F31.10 Bipolar depression F31.9 Alcohol abuse F10.10 Antisocial personality disorder F60.2 Opioid use disorder, severe, in early remission, on maintenance therapy, dependence Malingering Z76.5 Suicidal ideation R45.850
[2025-04-27] MEDS: buprenorphine-naloxone 4-1 mg Film 3 EACH SUBLINGUAL ×2 (13:01→17:26)
[2025-04-27] MEDS: diphenhydrAMINE 50 mg/mL SDV 1mL IM (17:04)
--- NOTE | 2025-04-27 17:06 | PC.NURSE ---
Pt has continuously escalated all day. He was upset earlier in the day because he wanted to speak to his mother about getting his utility bill paid. Staff attempted to make contact with the mother who is in ICU and she requested that we not allow pt to talk with her. Pt communicated through staff how his mother could pay the utility bill. Later in the day around 1500 pt began wanting to speak with his mother again. We reinforced with him again that his mother did not want us to allow him to make contact with her. He began demanding that we call [facility] for him and find out if the utility bill could be paid. We informed him that we could not do that. We had to shut the phone off and not allow him to use it because he was slamming the phone when he couldn't get it to work. Pacu Rn was able to confirm with ICU staff that the utility bill was paid. Pt was informed. He then became upset that he was not receiving his adderall. We informed him that the hospital pharmacy did not carry the medication and the only was he could receive it was to have his own script brought in by someone. Pt demanded to be able to call his PCP and have them bring it to him. Pharmacy later called and informed they were unable to assist him in his request. Pt began to elevate and was in the dayroom having behaviors and upsetting other pt. He came down to the bathroom and was knocking and banging around. Spoke with Dr. Francis and instructed us to give a B52 (see MAR). Pt tolerated meds well.
--- NOTE | 2025-04-27 23:03 | PC.NURSE ---
vs not completed per nursing, resp 16
[2025-04-28 06:00] VITALS: BP 111/72; PULSE 99; RESP 16; TEMP 36.5; O2SAT 97
[2025-04-28] MEDS: buprenorphine-naloxone 4-1 mg Film 3 EACH SUBLINGUAL ×2 (09:03→17:07)
[2025-04-28 14:00] VITALS: BP 132/79; PULSE 84; RESP 16; TEMP 36.7; O2SAT 96
--- NOTE | 2025-04-28 17:42 | P.NPUPN_ITS ---
Subjective NPU 2 Subjective: 44-year-old male with opiate dependence and ADHD along with bipolar disorder admitted with disorganized behavior and confusion. The patient was difficult to arouse today. He had minimized having any current problems other than needing to be placed back on his Adderall. Previous records were reviewed and revealed that the patient has had more frequent hospitalizations and evidence of psychosis with the introduction of stimulants to his medication regimen over the past 2 years. Mental Status Exam 2 MSE Comments: This is an overweight versus obese white male in hospital scrubs with limited grooming and no eye contact. Significant tattooing on exposed skin. There is no evidence of any abnormal involuntary motor movements today. He was minimally cooperative with exam and difficult to arouse. Speech was minimal. His mood was not endorsed. His affect was dysphoric. His thought process was nonlinear and not organized. Thought content: Patient denied any suicidal or homicidal ideation. There was significant paranoia and the patient did appear to be responding to internal stimuli. Attention and concentration were both impaired and memory was unreliable and likely purposefully so but none were formally tested. He is alert and oriented to person and place but not time. Insight and judgment are impaired and impulse control is impaired. Vitals/I&O/Wt Last Vital Signs Temp 98.1 F 04/28/25 14:00 Pulse 84 04/28/25 14:00 Resp 16 04/28/25 14:00 BP 132/79 04/28/25 14:00 Pulse Ox 96 04/28/25 14:00 O2 Del Method Room Air 04/28/25 06:00 O2 Flow Rate 6 04/27/25 03:15 Data NPU 04/26/25 23:47 04/27/25 02:26 A&P Assessment and plan 1. Bipolar affective, manic, unspec: 2. Bipolar depression: 3. Alcohol abuse: 4. Antisocial personality disorder: 5. Opioid use disorder, severe, in early remission, on maintenance therapy, dependence: 6. Malingerin. Suicidal ideation: 8. Suicidal ideation: Plan: This is a 44-year-old male with a history of bipolar disorder along with polysubstance abuse admitted involuntarily again with agitation and confusion with uncertain history of amphetamine abuse. I am concerned that stimulant is making the patient psychotic. 1. Encourage individual, group and milieu therapy. 2. Recommend sober living treatment at the highest level of care to which the patient is willing to commit. 3. Continue q-15 minute checks for safety 4. CIWA protocol. 5. Continue Suboxone at 8/2 SL TID 6. Continue Seroquel at 600mg at night. PDMP PDMP Reviewed: Not Reviewed Involuntary Hold Information 2 Hold Status: Legal Status: 96 Hour Hold Date/Time Hold Expires: 05/01/2025 @ 0001 96 Hour Hold: 96 Hour Involuntary Admission: No Attestations NPU 2 Medical Necessity Statement*: Inpatient hospitalization is medically necessary and the clinically appropriate intervention at this time. We will monitor medications and make adjustments as indicated. The patient's likely length of stay 5-7 days. Coding Level of Care Code Acute Code for g Fwd Diagnoses Bipolar affective, manic, unspec F31.10 Bipolar depression F31.9 Alcohol abuse F10.10 Antisocial personality disorder F60.2 Opioid use disorder, severe, in early remission, on maintenance therapy, dependence Malingering Z76.5 Suicidal ideation R45.432
[2025-04-28 19:20] VITALS: BP 138/76; PULSE 87; RESP 17; TEMP 36.8; O2SAT 95
[2025-04-29 06:00] VITALS: BP 116/72; PULSE 83; RESP 16; TEMP 36.5; O2SAT 96
[2025-04-29] MEDS: buprenorphine-naloxone 4-1 mg Film 3 EACH SUBLINGUAL (09:07)
[2025-04-29 14:00] VITALS: BP 150/98; PULSE 92; RESP 17; TEMP 37.1; O2SAT 96
[2025-04-29 15:23] VITALS: BP 150/98; PULSE 92; RESP 17; TEMP 37.1; O2SAT 96
--- NOTE | 2025-04-29 16:47 | W.PM.NPUDCS ---
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 04/26/25 23:47 RDW 12.7 % (12.1-15.1 ) 04/26/25 23:47 Plt Count 177 10^3/cmm (157 -399) 04/26/25 23:47 MPV 11.6 fL (7.4-10.4 ) H 04/26/25 23:47 Neut % (Auto) 79.0 % 04/26/25 23:47 Lymph % (Auto) 11.4 % 04/26/25 23:47 Power % (Auto) 8.5 % 04/26/25 23:47 Eos % (Auto) 0.2 % 04/26/25 23:47 Baso % (Auto) 0.5 % 04/26/25 23:47 Neut # (Auto) 9.10 10^3/uL (1.8 -7.7) H 04/26/25 23:47 Lymph # (Auto) 1.3 10^3/uL (0.8- 4.8) 04/26/25 23:47 Power # (Auto) 1.0 10^3/uL (0.2- 0.9) H 04/26/25 23:47 Eos # (Auto) 0.0 10^3/uL (0.0- 0.8) 04/26/25 23:47 Baso # (Auto) 0.1 10^3/uL (0.0- 0.1) 04/26/25 23:47 Nucleated RBC % (a uto) 0 % 04/26/25 23:47 Nucleated RBCs # 0.0 /100WBC 04/26/25 23:47 PT 14.70 SECONDS (12 .1-14.9) 04/27/25 02:26 INR 1.07 (0.8-1.2) 04/27/25 02:26 Sodium 141 mmol/L (136-1 45) 04/27/25 02:26 Potassium 4.3 mmol/L (3.5-5 .1) 04/27/25 02:26 Chloride 104 mmol/L (98-10 7) 04/27/25 02:26 Carbon Dioxide 23 mmol/L (22-29) 04/27/25 02:26 Anion Gap 18.3 (5-19) 04/27/25 02:26 BUN 24 mg/dL (6-20) H 04/27/25 02:26 Creatinine 1.3 mg/dL (0.7-1. 2) H 04/27/25 02:26 GFR Calculation 60.2 mL/min (90-1 30) L 04/27/25 02:26 Glucose 83 mg/dL (65-115) 04/27/25 02:26 POC Glucose 82 mg/dL (70-110) 04/27/25 01:35 Calculated Osmolal ity 295 mOsm/kg (285- 295) 04/27/25 02:26 Calcium 9.2 mg/dL (8.5-10 .5) 04/27/25 02:26 Total Bilirubin 0.6 mg/dL (0.15-1 .2) 04/26/25 23:47 AST 45 U/L (0-40) H 04/26/25 23:47 ALT 27 U/L (0-41) 04/26/25 23:47 Alkaline Phosphata se 144 U/L (40-130) H 04/26/25 23:47 Total Protein 8.3 g/dL (6.6-8.7 ) 04/26/25 23:47 Albumin 5.2 g/dL (3.5-5.2 ) 04/26/25 23:47 Globulin 3.1 g/dL (1.3-4.6 ) 04/26/25 23:47 Salicylates < 0.3 mg/dL (3-10 ) L 04/26/25 23:47 Urine Opiates Scre en Negative ng/mL (N egative) 04/27/25 02:26 Acetaminophen < 5.0 ug/mL (10-3 0) L 04/26/25 23:47 Ur Barbiturates Sc reen Negative ng/mL (N egative) 04/27/25 02:26 Ur Phencyclidine S crn Negative ng/mL (N egative) 04/27/25 02:26 Ur Amphetamines Sc reen Positive ng/mL (N egative) H 04/27/25 02:26 U Benzodiazepines Scrn Positive ng/mL (N egative) H 04/27/25 02:26 Urine Cocaine Scre en Negative ng/mL (N egative) 04/27/25 02:26 U Marijuana (THC) Screen Negative ng/mL (N egative) 04/27/25 02:26 Ethyl Alcohol < 10 mg/dL (0-10) 04/26/25 23:47 Vitals: Last Vital Signs Temp 98.7 F 04/29/25 15:23 Pulse 92 04/29/25 15:23 Resp 17 04/29/25 15:23 BP 150/98 04/29/25 15:23 Pulse Ox 96 04/29/25 15:23 O2 Del Method Room Air 04/29/25 06:00 O2 Flow Rate 6 04/27/25 03:15 Discharge Plan Discharge Patient Disposition: Home Condition: Stable Prescriptions: New quetiapine 300 mg Tablet 600 mg PO BEDTIME 30 Days Qty: 60 1RF Continued buprenorphine-naloxone 8-2 mg tablet, sublingual 1.5 tab SUBLINGUAL BID Discontinued dextroamphetamine-amphetamine 30 mg capsule,extended release 24hr 30 mg PO BID quetiapine [Seroquel] 300 mg tablet 600 mg PO BEDTIME 30 Days Qty: 60 1RF Discharge Order = DC NOW: Discharge Order (Routine); Ordered 04/29/25 Ordered By: Collin Francis Referrals: Akil Ordoñez [Primary Care Provider, Family Practice] Lala Garcia FNP-C [Referring, Nurse Practitioner] - 05/07/25 1:30 pm Discharge Diet: Usual diet Discharge Activity: Resume usual activity Patient Instructions: Bipolar Disorder (DC), Depression (DC), Anxiety (DC), Suicide Prevention (DC), Opioid Safety, Patient Portal & Lita Instructions Discharge Attestations NPU Time Spent in Discharge Care*: less than 30 min Specific Discharge Activities: Specific discharge activities: educating patient, discussing with case specialist/social workers/dc planners and documenting/other paperwork Status at Discharge: Cognitive status at discharge: cognitively intact, Behavioral status at discharge: cooperative, Coding Level of Care Code Acute Code for [facility] Fwd Diagnoses Bipolar affective, manic, unspec F31.10 Bipolar depression F31.9 Alcohol abuse F10.10 Antisocial personality disorder F60.2 Opioid use disorder, severe, in early remission, on maintenance therapy, dependence F11.21 Malingering Z76.5 Suicidal ideation R45.851
== END 2025-04-29 17:40 | DRG 885 ==
LOC: ER 04-27 05:09 → ER IP 04-27 06:11 → NP 04-27 07:58
PROVIDERS: Admitting Provider Psychiatry & Neurology Psychiatry; Emergency Provider Emergency Medicine; PCP Family Medicine; Visit Provider Psychiatry & Neurology Psychiatry
DX: F31.10 Bipolar disorder, current episode manic without psychotic features, unspecified (principal); F11.20 Opioid dependence, uncomplicated; R45.851 Suicidal ideations; F10.10 Alcohol abuse, uncomplicated; F60.2 Antisocial personality disorder; G89.29 Other chronic pain; M54.9 Dorsalgia, unspecified; F63.81 Intermittent explosive disorder; F41.9 Anxiety disorder, unspecified; F43.10 Post-traumatic stress disorder, unspecified; K58.9 Irritable bowel syndrome, unspecified; F17.220 Nicotine dependence, chewing tobacco, uncomplicated; F90.9 Attention-deficit hyperactivity disorder, unspecified type; Z76.5 Malingerer [conscious simulation]
CPT/HCPCS: 36416; 70450; 71045; 80048; 80053; 80306; 80307; 82962; 85025; 85610; 93005; 96360; 96372; 97150; 97165; 99285; 99291; 99292; J0573; J1200; J1630; J2060; J3490; J7030; J9999

== ENCOUNTER 2025-05-06 21:13 | Emergency (ER) | payer MEDICAID, SELFPAY ==
[2025-05-06 21:14] VITALS: BP 154/105; PULSE 128; RESP 18; TEMP 36.8; O2SAT 99; BMI 32.6
--- OUTSIDE RECORDS SUMMARY | 2025-05-06 21:23 | XMS_ITS | Encounter Summary ---
Author Organization [facility] Address [address] [address] Phone Care Team Providers Care Program Director/Morning Show Host Name Role Phone Unavailable Primary Care Provider Unavailabl e Encounter Details Date Type Department Care Team (Late st Contact Info) Description 05/27/2020 Orders Only [facility] [address] [place] [address] Celine Phoenix MD No forwarding address at [...] COVID-19? No / Unsure 05/25/2020 11:53 AM SALON SHAMPOO ASSISTANT documented as of this encounter Functional Status * Are you deaf or do you have serious difficulty hearing? Answer Date of Assessment Author No 05/26/2020 10:38 AM SALON SHAMPOO ASSISTANT Kelby Gonzales BSW * Are you blind or do you have serious difficulty seeing, even when wearing glasses? Answer Date of Assessment Author No 05/26/2020 10:38 AM SALON SHAMPOO ASSISTANT Kelby Gonzales BSW * Do you have [...]
--- OUTSIDE RECORDS SUMMARY | 2025-05-06 21:23 | XMS_ITS | Clinical Summary ---
Author Organization [facility] Address [address] [place] [address] Phone Care Team Providers Care Placement Interviewer Name Role Phone Akil Ordoñez MD Primary Care Provider [phone] Allergies Active Allergy Reactions Criticality Noted Date Comments Lidocaine Swelling Low 12/14/2020 Tramadol Seizure High 03/25/2025 Medications QUEtiapine (SEROquel) 300 mg tabletIndication s:Bipolar affective disorder, remission status unspecified (CMS/[facility]) take 2 tablets by mouth every night at bedtime 180 Tablet 4 Active ALPRAZolam (XANAX) 0.5 mg tablet Take 0.5 mg by mouth nightly as needed for Anxiety. Active dextroamphetamin e-amphetamine (ADDERALL) 30 mg tablet Take 30 mg by mouth daily. Active lisinopriL (PRINIVIL) 10 mg tablet Take 10 mg by mouth daily. 5 Active naloxone (NARCAN) 4 mg/spray [place], Non-Aerosol Administer 4 mg in one nostril (alternate nostril with each dose) one time as needed for Respiration. 4 Active buprenorphine-na lOXone (SUBOXONE) 8-2 mg Tablet, Sublingual Place 1 Tablet under tongue daily. 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 Educate on the long-term mental health consequences of substance use. Cannabis use disorder, moderate, dependence 06/09 Assessment & Plan (07/06/2023 9:31 AM CLAIMS CUSTOMER SERVICE REPRESENTATIVE): Stable, uncontrolled: Use motivational interviewing tactics to [...] 05/11/2014 Opioid use disorder, severe, dependence 03/02/20 12 Assessment & Plan (07/06/2023 9:31 AM CLAIMS CUSTOMER SERVICE REPRESENTATIVE): Stable, uncontrolled: Use motivational interviewing tactics to [...] Encounters Date Type Department Care Team Description 04/27/[address] [address] Akil Ordoñez MD 04/27/2025 Orders Only [facility] [address] [place] [address] Provider, Abstract 04/27/[address] [address] Akil Ordoñez MD 04/21/2025 External Device Data STL ABSTRACTION Provider, [...] CDT - 03/25/2025 11:10 AM CDT Emergency [facility] Emergency Medicine [address] [facility] [address] [place] [address] Sukhwinder Bates MD Soft tissue infection (Primary [...] How often do you attend chur or jain services? Never 06/08/2020 Do you belong to any clubs o r organizations such as bahai groups, unions, fraternal or athletic groups, or [...] on file Legal Sex Male 6:23 AM CLAIMS CUSTOMER SERVICE REPRESENTATIVE Gender Identity Not on file Sexual Orientation [...] 03/22/2020, 03/22/2020, Additional history exists COVID-19 Vaccine ( - 2024-2 6 season) 2025 11/15/2020, 10/14/2020 DTAP/TDAP/TD VACCINES (5 - T d or Tdap) 03/23/2034 03/23/2024, 05/08/2015, 05/08/2015, Additional history exists Procedures Procedure Name Priority Date/Time Associated Diagnosis Comments COMPREHENSIVE METABOLIC PANEL Routine 04/27/2025 11:55 AM CDT PROTIME-INR Routine 04/27/2025 from Last 3 Months Results * COMPREHENSIVE METABOLIC PANEL (04/27/2025 11:55 AM CDT) Blood us Abstract Provider CHEMISTRY ORDERABLES Final Res ult * PROTIME-INR (04/27/2025) ABSTRACTED PROTIME 14.0 ABSTRACTED INR 1.0 Blood 04/27/2025 us Abstract Provider HEMATOLOGY ORDERABLES Final Re sult from Last 3 Months Insurance [place] * Guarantor: [employer] Account Type Relation to Patient Date of Phone Billing Address Personal/Family [address] [place] [address] [employer] Medicaid [place] Advance Directives For more information, please contact: [phone] * Full Code (Latest Code Status on File) Date Activated Date Inactivated Comments 03/12/2024 11:44 AM 03/13/2024 2:45 PM * Full Code Date Activated Date Inactivated Comments 07/04/2023 7:19 PM 07/07/2023 1:20 PM Care Teams Placement Interviewer Relationship Specialty Start Date End Date Akil Ordoñez MD [address] [phone] PCP - General Family Practice 01/16/24
--- OUTSIDE RECORDS SUMMARY | 2025-05-06 21:23 | XMS_ITS | Encounter Summary ---
Author Organization [facility] Address [address] [place] [address] Care Team Providers Care Baker Helper Name Role Phone Akil Ordoñez MD Primary Care Provider [phone] Encounter Details Date Type Department Care Team (Late st Contact Info) Description 04/27/2025 Orders Only [facility] [address] [place] [address] Provider, Abstract NO ADDRESS ON FILE Social [...] week 06/08/2020 How often do you attend [facility] or hindu services? Never 06/08/2020 Do you belong to any clubs o r organizations such as hindu groups, unions, fraternal or athletic groups, or [...] on file Legal Sex Male 6:23 AM DIGITAL MARKETING PROGRAM MANAGER Gender Identity Not on file Sexual Orientation Not on file documented as of this encounter Plan of Treatment Not on file documented as of this encounter Procedures Procedure Name Priority Date/Time Associated Diagnosis Comments COMPREHENSIVE METABOLIC PANEL Routine 04/27/2025 11:55 AM CDT documented in this encounter Results * COMPREHENSIVE METABOLIC PANEL (04/27/2025 11:55 AM CDT) Blood us Abstract Provider CHEMISTRY ORDERABLES Final Res ult documented in this encounter Visit Diagnoses Not on filedocumented in this encounter Care Teams Baker Helper Relationship Specialty Start Date End Date Akil Ordoñez MD [address] [phone] PCP - General Family Practice 01/16/24 documented as of this encounter
--- OUTSIDE RECORDS SUMMARY | 2025-05-06 21:23 | XMS_ITS | Clinical Summary ---
Author Organization [facility] Address [address] [place] [address] Phone Care Team Providers Care Field Service Rep Name Role Phone Unavailable Primary Care Provider [...] Comments Blood Pressure 154/103 05/26/2020 4:00 PM COMMERCIAL BAKER HELPER Pulse 96 05/26/2020 4:00 PM COMMERCIAL BAKER HELPER Temperature 36.3 C (97.4 F) 05/26/2020 3:51 PM COMMERCIAL BAKER HELPER Respiratory Rate 17 05/26/2020 3:51 PM COMMERCIAL BAKER HELPER Oxygen Saturation 95% 05/26/2020 3:51 PM COMMERCIAL BAKER HELPER Inhaled Oxygen Concentration - - Weight 123 kg (271 lb 6.2 oz) 05/25/2020 10:29 A M COMMERCIAL BAKER HELPER Height 195.6 cm (6' 5 ) 05/25/2020 10:29 AM COMMERCIAL BAKER HELPER Body Mass Index 32.18 05/25/2020 10:29 AM COMMERCIAL BAKER HELPER Plan of Treatment Health Maintenance Due Date Last Done Comments Lipid Panel 1981 MMR Vaccines (1 of 1 - Standard series) 1982 Varicella Vaccines (1 of 2 - 13+ 2-dose series) 1994 Depression Screening 09/26/1999 Social Drivers of Health ([employer]) 09/26/1999 Hepatitis B Vaccines (1 of 3 [...] patient's age to complete this topic Insurance [employer] Advance Directives For more information, please contact: [phone] (7:30 AM - 5PM [facility], 7 days a week) * Full Code (Latest Code Status on File) Date Activated Date Inactivated Comments 05/25/2020 10:26 AM 05/26/2020 6:26 PM
--- OUTSIDE RECORDS SUMMARY | 2025-05-06 21:24 | XMS_ITS | Patient Health Record ---
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) Active confirmed Problem Bipolar affective disorder, currently manic, moderate (550228982) Bipolar 1 disorder with moderate karla (F31.12) Active confirmed Problem Insomnia (909861246) Insomnia (307.41) 06/02/20 Problem resolved confirmed [id number]- Problem Grand mal seizure disorder (345.10) 06/02/20 Problem resolved confirmed [id number]- Problem Essential hypertension (91533148) Essential hypertension (401.1) 06/02/20 Problem resolved confirmed [id number] 11- Plan Of Treatment No Information Insurance Providers Payer Name Payer Address Payer Phone Subscriber Number Group Number Insured Name Patient Relationship to Insured Coverage Start Date Coverage End Date [place] [address] [place] [address] [id number] Kyle Cartwright Self - patient is the insured Medical (General) History Medical History History ICD Code Hypertension Grand Mal seizures Generalized anxiety disorder Insomnia osteoarthritis affecting left leg Bipolar disorder Surgical History Surgery Date(Month/Year) Lipoma removed, right lower lumbar regio n
--- OUTSIDE RECORDS SUMMARY | 2025-05-06 21:24 | XMS_ITS | Data Portability ---
Author Organization [facility] Address [address] [place] [address] Care Team Providers Care Lapping Machine Set Up Operator Name Role Phone AUSTIN FOSTER Community Health Worker Assessment Encounter Date Assessment Date Assessment LastModified by Organization Details LastModified Time 02/26/2025 02/26/2025 Treatment Summary: Started [facility] MAT program 04/03/24 He was [...] note for Tx Summary and General Wellness [email or web address] Not available 03/05/2025 17:20:50 03/26/2025 03/26/2025 Treatment Summary: Started [facility] MAT program 04/03/24 He was [...] physician: March 11, 2025 Annual labs April Not available 03/26/2025 19:08:41 04/16/2025 04/16/2025 Treatment Summary: Started [facility] MAT program 04/03/24 He was [...] 04/16/2025 09:43:33 04/23/2025 04/23/2025 Treatment Summary: Started [facility] MAT program 04/03/24 He was [...] Modified Time Details Appointments MAT 15 2024 01:30P Janine HOUSTON NP Not available Not available Not available MAT 15 2024 09:15A Janine HOUSTON NP [...] (Lyrica) Zolpidem (Ambien) Specimen Validity 2024 025 [facility], [address], [place], [address], 04/28/2025 07:24:10 drug screen, urine - Includes the following [...] n (Lyrica) Zolpidem (Ambien) Specimen Validity 2024 [facility], [address] [facility] [place], [address], 03/01/2025 21:29:24 Referral None recorded. Procedures None recorded. Surgeries None recorded. Imaging None recorded. Medication Orders buprenorp ramy 8 mg-naloxo ne 2 mg sublingua l tablet 2024 [facility], [address] [place] [address], [address], 04/30/2025 05:02:13 Adderall XR 30 mg capsule,e xtended release 2024 [facility], [address] [place] [address], [address], 04/30/2025 09:35:41 buprenorp ramy 8 mg-naloxo ne 2 mg sublingua l tablet [address], [address] [place] [address], [address], 04/30/2025 07:53:56 Adderall XR 30 mg capsule,e xtended release [address], [address] [place] [address], [address], 04/30/2025 07:53:29 buprenorp ramy 8 mg-naloxo ne 2 mg sublingua l tablet 2024 025 [facility] [place], [address], [place], [address], 04/30/2025 05:02:13 lisinopri l 10 mg tablet 2024 025 [id number], [address], [place], [place], [id number], 03/11/2025 15:34:22 Adderall XR 30 mg capsule,e xtended release [address] [id number], [address], [place], [place], [id number], 04/30/2025 07:53:29 buprenorp ramy 8 mg-naloxo ne 2 mg sublingua l tablet 2024 025 [facility] #[id number], [address], [place], [place], [id number], 04/30/2025 05:02:13 prednison e 50 mg tablet 2024 025 [facility] #[id number], [address], [place], [place], [id number], 03/10/2025 05:02:35 lisinopri l 10 mg tablet 2024 025 [facility] #[id number], [address], [place], [place], [id number], 02/26/2025 09:36:44 Adderall XR 30 mg capsule,e xtended release [address] [facility][id number], [address], [place], [place], [id number], 04/30/2025 07:53:29 Patient TargetsNo targets recorded. Patient Instructions Encounter Date Encounter Id Patient Instructions Last Modified By Organization Details Last Modified Time 03/11/2025 [id number] This was a telephone visit. I was at [facility] and patient was at home. Verbal consent was obtained. Visit was 15 minutes Visit was with real time audio. We have the ability to do audio and video but patient request audio only for convenience [email or web address] Not available 03/11/2025 15:34:47 03/26/2025 [id number] heart-healthy diet: care instructions [email or web address] Not available 03/26/2025 19:12:52 walking for exercise: care instructions [email or web address] Not available 03/26/2025 19:12:52 body mass index: care instructions Not available 03/26/2025 19:12:51 learning about healthy weight [email or web address] Not available 03/26/2025 19:12:51 This was a virtual appointment. Verbal consent was obtained. Virtual visit with AUDIO ONLY. Provider has access to video and audio, but pt was unable to join with video today. Pt was at home and provider at [facility] Phone visit lasted 7 min and 4 seconds [email or web address] Not available 03/26/2025 19:12:25 04/16/2025 [id number] heart-healthy diet: care instructions [email or web address] Not available 04/16/2025 09:39:27 walking for exercise: care instructions [email or web address] Not available 04/16/2025 09:39:27 high blood pressure: care instructions [email or web address] Not available 04/16/2025 09:39:27 learning about high blood pressure [email or web address] Not available 04/16/2025 09:39:27 body mass index: care instructions [email or web address] Not available 04/16/2025 09:39:27 learning about healthy weight [email or web address] Not available 04/16/2025 09:39:27 This was a virtual appointment. Verbal consent was obtained. Virtual visit with AUDIO ONLY. Provider has access to video and audio, but pt was unable to join with video today. Pt was at home and provider at [facility] in [facility] Phone visit lasted 6 min and 58 seconds [email or web address] Not available 04/16/2025 09:40:52 04/23/2025 [id number] heart-healthy diet: care instructions Not available 04/23/2025 13:02:16 walking for exercise: care instructions Not available 04/23/2025 13:02:16 high blood pressure: care instructions Not available 04/23/2025 13:02:17 learning about high blood pressure [email or web address] Not available 04/23/2025 13:02:16 body mass index: care instructions [email or web address] Not available 04/23/2025 13:02:17 learning about healthy weight [email or web address] Not available 04/23/2025 13:02:17 Reason for Referral None Reported. Results Created Date Observation Date Name Description Value Unit Range Abnormal Flag Note LastModifiedBy Organization Detail LastModifiedTime 02/27/2003/01/2025 [facility] RESUL TS codeine quantificati on negati ve NG/mL 50 normal Not Available [facility] [address] [place], [address], 03/01/2025 21:29:23 02/27/20 25 03/01/2025 MILLE NNIUM RESUL TS morphine quantificati on negati ve NG/mL 50 normal Not Available [facility] [address] [place], [address], 03/01/2025 21:29:23 02/27/20 25 03/01/2025 MILLE NNIUM RESUL TS hydrocodone quantificati on negati ve NG/mL 50 normal Not Available [facility] [address] [place], [address], 03/01/2025 21:29:23 02/27/20 25 03/01/2025 MILLE NNIUM RESUL TS norhydrocodo ne quantificati on negati ve NG/mL 50 normal Not Available [facility] [address] [place], [address], 03/01/2025 21:29:23 02/27/20 25 03/01/2025 MILLE NNIUM RESUL TS hydromorphon e quantificati on negati ve NG/mL 50 normal Not Available [facility] [address] [place], [address], 03/01/2025 21:29:23 02/27/20 25 03/01/2025 MIL[facility] NNIUM RESUL TS oxycodone quantificati on negati ve NG/mL 50 normal Not Available [facility] [address] [place], [address], 03/01/2025 21:29:23 02/27/20 25 03/01/2025 MIL[facility] NNIUM RESUL TS noroxycodone quantificati on negati ve NG/mL 50 normal Not Available [facility] [address] [place], [address], 03/01/2025 21:29:23 02/27/20 25 03/01/2025 MILLE NNIUM RESUL TS oxymorphone quantificati on negati ve NG/mL 50 normal Not Available [facility] [address] [place], [address], 03/01/2025 21:29:23 02/27/20 25 03/01/2025 MILLE NNIUM RESUL TS buprenorphin e quantificati on positi ve-337 .264 NG/mL 5 normal Not Available [facility] [address] [place], [address], 03/01/2025 21:29:23 02/27/20 25 03/01/2025 MILLE NNIUM RESUL TS norbuprenorp ramy quantificati on positi ve-646 .651 NG/mL 20 normal Not Available [facility] [address] [place], [address], 03/01/2025 21:29:23 02/27/20 25 03/01/2025 MILLE NNIUM RESUL TS fentanyl quantificati on negati ve NG/mL 1 normal Not Available [facility] [address] [place], [address], 03/01/2025 21:29:23 02/27/20 25 03/01/2025 MILLE NNIUM RESUL TS norfentanyl quantificati on negati ve NG/mL 8 normal Not Available [facility] [address] [place], [address], 03/01/2025 21:29:23 02/27/20 25 03/01/2025 MILLE NNIUM RESUL TS methadone quantificati on negati ve NG/mL 100 normal Not Available [facility] [address] [place], [address], 03/01/2025 21:29:23 02/27/20 25 03/01/2025 MILLE NNIUM RESUL TS EDDP (methadone metabolite) quantificati on negati ve NG/mL 100 normal Not Available [facility] [address] [place], [address], 03/01/2025 21:29:23 02/27/20 25 03/01/2025 MILLE NNIUM RESUL TS tramadol quantificati on negati ve NG/mL 100 normal Not Available [facility] [address] [place], [address], 03/01/2025 21:29:23 02/27/20 25 03/01/2025 MILLE NNIUM RESUL TS O-desmethyl- tramadol quantificati on negati ve NG/mL 100 normal Not Available [facility] [address] [place], [address], 03/01/2025 21:29:23 02/27/20 25 03/01/2025 MIL[facility] NNIUM RESUL TS N-desmethyl- tramadol quantificati on negati ve NG/mL 100 normal Not Available [facility] [address] [place], [address], 03/01/2025 21:29:23 02/27/20 25 03/01/2025 MILLE NNIUM RESUL TS tapentadol quantificati on negati ve NG/mL 50 normal Not Available [address] [address] [place], [address], 03/01/2025 21:29:23 02/27/20 25 03/01/2025 MILLE NNIUM RESUL TS meperidine quantificati on negati ve NG/mL 50 normal Not Available [facility] [address] [place], [address], 03/01/2025 21:29:23 02/27/20 25 03/01/2025 MILLE NNIUM RESUL TS normeperidin e quantificati on negati ve NG/mL 50 normal Not Available [facility] [address] [place], [address], 03/01/2025 21:29:23 02/27/20 25 03/01/2025 MILLE NNIUM RESUL TS alpha-hydrox yalprazolam quantificati on negati ve NG/mL 20 normal Not Available [facility] [address] [place], [address], 03/01/2025 21:29:23 02/27/20 25 03/01/2025 MILLE NNIUM RESUL TS 0-hblwq-srdf azepam quantificati on negati ve NG/mL 20 normal Not Available [address] [address] [place], [address], 03/01/2025 21:29:23 02/27/20 25 03/01/2025 MILLE NNIUM RESUL TS lorazepam quantificati on negati ve NG/mL 40 normal Not Available [facility] [place], [address], 03/01/2025 21:29:23 02/27/20 25 03/01/2025 MILLE NNIUM RESUL TS nordiazepam quantificati on negati ve NG/mL 40 normal Not Available [facility] [address] [place], [address], 03/01/2025 21:29:23 02/27/20 25 03/01/2025 MILLE NNIUM RESUL TS temazepam quantificati on negati ve NG/mL 50 normal Not Available [facility] [address] [place], [address], 03/01/2025 21:29:23 02/27/20 25 03/01/2025 MILLE NNIUM RESUL TS oxazepam quantificati on negati ve NG/mL 40 normal Not Available [facility] [address] [place], [address], 03/01/2025 21:29:23 02/27/20 25 03/01/2025 MILLE NNIUM RESUL TS amphetamine quantificati on positi ve-> 37221 NG/mL 100 normal Not Available [facility] [address] [place], [address], 03/01/2025 21:29:23 02/27/20 25 03/01/2025 MILLE NNIUM RESUL TS methylphenid ate quantificati on negati ve NG/mL 50 normal Not Available [facility] [address] [place], [address], 03/01/2025 21:29:23 02/27/20 25 03/01/2025 MILLE NNIUM RESUL TS ritalinic acid quantificati on negati ve NG/mL 50 normal Not Available [facility] [address] [place], [address], 03/01/2025 21:29:23 02/27/20 25 03/01/2025 MILLE NNIUM RESUL TS quetiapine quantificati on positi ve-> 53933 NG/mL 25 normal Not Available [facility] [address] [place], [address], 03/01/2025 21:29:23 02/27/20 25 03/01/2025 MILLE NNIUM RESUL TS norquetiapin e quantificati on positi ve-> 6250 NG/mL 25 normal Not Available [facility] [address] [place], [address], 03/01/2025 21:29:23 02/27/20 25 03/01/2025 MILLE NNIUM RESUL TS gabapentin quantificati on negati ve NG/mL 1000 normal Not Available [facility] [address] [place], [address], 03/01/2025 21:29:23 02/27/20 25 03/01/2025 MILLE NNIUM RESUL TS pregabalin quantificati on negati ve NG/mL 400 normal Not Available [facility] [address] [place], [address], 03/01/2025 21:29:23 02/27/20 25 03/01/2025 MILLE NNIUM RESUL TS ketamine quantificati on negati ve NG/mL 50 normal Not Available [facility] [address] [place], [address], 03/01/2025 21:29:23 02/27/20 25 03/01/2025 MILLE NNIUM RESUL TS norketamine quantificati on negati ve NG/mL 50 normal Not Available [facility] [address] [place], [address], 03/01/2025 21:29:23 02/27/20 25 03/01/2025 MILLE NNIUM RESUL TS naltrexone quantificati on negati ve NG/mL 10 normal Not Available [facility] [address] [place], [address], 03/01/2025 21:29:23 02/27/20 25 03/01/2025 MILLE NNIUM RESUL TS naltrexol quantificati on negati ve NG/mL 10 normal Not Available [facility] [address] [place], [address], 03/01/2025 21:29:23 02/27/20 25 03/01/2025 MILLE NNIUM RESUL TS naloxone quantificati on positi ve-265 8.924 NG/mL 20 normal Not Available [facility] [address] [place], [address], 03/01/2025 21:29:23 02/27/20 25 03/01/2025 MILLE NNIUM RESUL TS czolpidem quantificati on negati ve NG/mL 10 normal Not Available [facility] [address] [place], [address], 03/01/2025 21:29:23 02/27/20 25 03/01/2025 MILLE NNIUM RESUL TS carisoprodol quantificati on negati ve NG/mL 100 normal Not Available [facility] [address] [place], [address], 03/01/2025 21:29:23 02/27/20 25 03/01/2025 MILLE NNIUM RESUL TS meprobamate quantificati on negati ve NG/mL 100 normal Not Available [facility] [address] [place], [address], 03/01/2025 21:29:23 02/27/20 25 03/01/2025 MILLE NNIUM RESUL TS pentobarbita l quantificati on negati ve NG/mL 200 normal Not Available [facility] [address] [place], [address], 03/01/2025 21:29:23 02/27/20 25 03/01/2025 MILLE NNIUM RESUL TS phenobarbita l quantificati on negati ve NG/mL 200 normal Not Available [facility] [address] [place], [address], 03/01/2025 21:29:23 02/27/20 25 03/01/2025 MILLE NNIUM RESUL TS secobarbital quantificati on negati ve NG/mL 200 normal Not Available [address] [place], [address], 03/01/2025 21:29:23 02/27/20 25 03/01/2025 MILLE NNIUM RESUL TS butalbital quantificati on negati ve NG/mL 200 normal Not Available [facility] [address] [place], [address], 03/01/2025 21:29:23 02/27/20 25 03/01/2025 MILLE NNIUM RESUL TS dextromethor thao negati ve NG/mL 50 normal Not Available [facility] [address] [place], [address], 03/01/2025 21:29:23 02/27/20 25 03/01/2025 MILLE NNIUM RESUL TS levorphanol / dextrorphan quantificati on negati ve NG/mL 50 normal Not Available [facility] [address] [place], [address], 03/01/2025 21:29:23 02/27/20 25 03/01/2025 MILLE NNIUM RESUL TS phentermine quantificati on negati ve NG/mL 50 normal Not Available [facility] [address] [place], [address], 03/01/2025 21:29:23 02/27/20 25 03/01/2025 MILLE NNIUM RESUL TS methamphetam ine quantificati on negati ve NG/mL 100 normal Not Available [facility] [address] [place], [address], 03/01/2025 21:29:23 02/27/20 25 03/01/2025 MILLE NNIUM RESUL TS cocaine metabolite quantificati on negati ve NG/mL 50 normal Not Available [facility] [address] [place], [address], 03/01/2025 21:29:23 02/27/20 25 03/01/2025 MILLE NNIUM RESUL TS cthc (marijuana metabolite) quantificati on negati ve NG/mL 15 normal Not Available [facility] [address] [place], [address], 03/01/2025 21:29:23 02/27/20 25 03/01/2025 MILLE NNIUM RESUL TS MDMA quantificati on negati ve NG/mL 100 normal Not Available [facility] [address] [place], [address], 03/01/2025 21:29:23 02/27/20 25 03/01/2025 MILLE NNIUM RESUL TS 6-CRISTHIAN (heroin metabolite) quantificati on negati ve NG/mL 10 normal Not Available [facility] [address] [place], [address], 03/01/2025 21:29:23 02/27/20 25 03/01/2025 MILLE NNIUM RESUL TS phencyclidin e quantificati on negati ve NG/mL 10 normal Not Available [facility] [address] [place], [address], 03/01/2025 21:29:23 02/27/20 25 03/01/2025 MILLE NNIUM RESUL TS acetyl fentanyl quantificati on Fen Neg NG/mL 2 normal Not Available [facility] [address] [place], [address], 03/01/2025 21:29:23 02/27/20 25 03/01/2025 MILLE NNIUM RESUL TS acetyl norfentanyl quantificati on Fen Neg NG/mL 5 normal Not Available [facility] [address] [place], [address], 03/01/2025 21:29:23 02/27/20 25 03/01/2025 MILLE NNIUM RESUL TS acryl fentanyl quantificati on Fen Neg NG/mL 1 normal Not Available [facility] [address] [place], [address], 03/01/2025 21:29:23 02/27/20 25 03/01/2025 MILLE NNIUM RESUL TS carfentanil quantificati on Fen Neg NG/mL 2 normal Not Available [facility] [address] [place], [address], 03/01/2025 21:29:23 02/27/20 25 03/01/2025 MILLE NNIUM RESUL TS para-fluorof entanyl quantificati on Fen Neg NG/mL 1 normal Not Available [facility] [address] [place], [address], 03/01/2025 21:29:23 02/27/20 25 03/01/2025 MILLE NNIUM RESUL TS 2-methyl AP-237 quantificati on negati ve NG/mL 10 normal Not Available [facility] [address] [place], [address], 03/01/2025 21:29:23 02/27/20 25 03/01/2025 MILLE NNIUM RESUL TS brorphine quantificati on negati ve NG/mL 15 normal Not Available [facility] [address] [place], [address], 03/01/2025 21:29:23 02/27/20 25 03/01/2025 MILLE NNIUM RESUL TS metonitazene quantificati on negati ve NG/mL 5 normal Not Available [facility] [address] [place], [address], 03/01/2025 21:29:23 02/27/20 25 03/01/2025 MILLE NNIUM RESUL TS 8-aminoclona zolam quantificati on negati ve NG/mL 10 normal Not Available [facility] [address] [place], [address], 03/01/2025 21:29:23 02/27/20 25 03/01/2025 MILLE NNIUM RESUL TS etizolam quantificati on negati ve NG/mL 10 normal Not Available [facility] [address] [place], [address], 03/01/2025 21:29:23 02/27/20 25 03/01/2025 MILLE NNIUM RESUL TS alpha-hydrox yetizolam quantificati on negati ve NG/mL 10 normal Not Available [facility] [address] [place], [address], 03/01/2025 21:29:23 02/27/20 25 03/01/2025 MILLE NNIUM RESUL TS flualprazola m quantificati on negati ve NG/mL 10 normal Not Available [facility] [address] [place], [address], 03/01/2025 21:29:23 02/27/20 25 03/01/2025 MILLE NNIUM RESUL TS flubromazola m quantificati on negati ve NG/mL 10 normal Not Available [facility] [address] [place], [address], 03/01/2025 21:29:23 02/27/20 25 03/01/2025 MILLE NNIUM RESUL TS [id number] metabolite quantificati on negati ve NG/mL 10 normal Not Available [facility] [address] [place], [address], 03/01/2025 21:29:23 02/27/20 25 03/01/2025 MILLE NNIUM RESUL TS fst139 metabolite quantificati on negati ve NG/mL 10 normal Not Available [facility] [address] [place], [address], 03/01/2025 21:29:23 02/27/20 25 03/01/2025 MILLE NNIUM RESUL TS rcs4 metabolite quantificati on negati ve NG/mL 10 normal Not Available [facility] [address] [place], [address], 03/01/2025 21:29:23 02/27/20 25 03/01/2025 MILLE NNIUM RESUL TS xlr11/ur144 metabolite negati ve NG/mL 10 normal Not Available [facility] [address] [place], [address], 03/01/2025 21:29:23 02/27/20 25 03/01/2025 MILLE NNIUM RESUL TS 5F-adb-M7 negati ve NG/mL 10 normal Not Available [facility] [address] [place], [address], 03/01/2025 21:29:23 02/27/20 25 03/01/2025 MILLE NNIUM RESUL TS Ab-fubinaca- M3 negati ve NG/mL 10 normal Not Available [facility] [address] [place], [address], 03/01/2025 21:29:23 02/27/20 25 03/01/2025 MILLE NNIUM RESUL TS mdmb-fubinac a-M1 negati ve NG/mL 10 normal Not Available [facility] [address] [place], [address], 03/01/2025 21:29:23 02/27/20 25 03/01/2025 MILLE NNIUM RESUL TS eutylone quantificati on negati ve NG/mL 10 normal Not Available [facility] [address] [place], [address], 03/01/2025 21:29:23 02/27/20 25 03/01/2025 MILLE NNIUM RESUL TS methylone quantificati on negati ve NG/mL 3 normal Not Available [facility] [address] [place], [address], 03/01/2025 21:29:23 02/27/20 25 03/01/2025 MILLE NNIUM RESUL TS xylazine quantificati on negati ve NG/mL 10 normal Not Available [facility] [address] [place], [address], 03/01/2025 21:29:23 02/27/20 25 03/01/2025 MILLE NNIUM RESUL TS 4-hydroxy xylazine quantificati on negati ve NG/mL 10 normal Not Available [facility] [address] [place], [address], 03/01/2025 21:29:23 02/27/20 25 03/01/2025 MILLE NNIUM RESUL TS mitragynine (kratom alkaloid) quantificati on negati ve NG/mL 1 normal Not Available [facility] [address] [place], [address], 03/01/2025 21:29:23 02/27/20 25 03/01/2025 [facility] NNI[facility] RESUL TS 5-gk-bgzvwlo nine (kratom alkaloid) quantificati on negati ve NG/mL 1 normal Not Available [facility] [address] [place], [address], 03/01/2025 21:29:23 02/27/20 25 03/01/2025 MILLE NNIUM RESUL TS ethyl glucuronide quantificati on negati ve NG/mL 500 normal Not Available [facility] [address] [place], [address], 03/01/2025 21:29:23 02/27/20 25 03/01/2025 MILLE NNIUM RESUL TS ethyl sulfate quantificati on negati ve NG/mL 500 normal Not Available [facility] [address] [place], [address], 03/01/2025 21:29:23 02/27/20 25 03/01/2025 MILLE NNIUM RESUL TS creatinine normal -120.5 mg/dL >20 mg/dL normal Not Available [facility] [address] [place], [address], 03/01/2025 21:29:23 02/27/20 25 03/01/2025 [facility] NNI[facility] RESUL TS oxidant normal -0 ug/mL <200 ug/mL normal Not Available [facility] [place], [address], 03/01/2025 21:29:23 02/27/2003/01/2025 MILLE NNIUM RESUL TS pH normal -5.9 4.5 - 9.5 normal Not Available [facility] [address] [place], [address], 03/01/2025 21:29:23 02/27/20 25 03/01/2025 MILLE NNIUM RESUL TS specific gravity normal -1.025 1.003 - 1.035 normal Not Available [facility] [id number] [place] [place], [address], 03/01/2025 21:29:23 04/23/2004/25/2025 MILLE NNIUM RESUL TS codeine quantificati on negati ve NG/mL 50 normal Not Available [facility] [address] [place], [address], 04/28/2025 07:24:10 04/23/20 25 04/25/2025 MILLE NNIUM RESUL TS morphine quantificati on negati ve NG/mL 50 normal Not Available [facility] [id number] [facility] [place], [address], 04/28/2025 07:24:10 04/23/2004/25/2025 MILLE NNIUM RESUL TS hydrocodone quantificati on negati ve NG/mL 50 normal Not Available [facility] [id number] [facility] [place], [address], 04/28/2025 07:24:10 04/23/2004/25/2025 MILLE NNIUM RESUL TS norhydrocodo ne quantificati on negati ve NG/mL 50 normal Not Available [facility] [id number] [address] [facility] [place], [address], 04/28/2025 07:24:10 04/23/2004/25/2025 MILLE NNIUM RESUL TS hydromorphon e quantificati on negati ve NG/mL 50 normal Not Available [facility] [id number] [address] [facility] [place], [address], 04/28/2025 07:24:10 04/23/2004/25/2025 MILLE NNIUM RESUL TS oxycodone quantificati on negati ve NG/mL 50 normal Not Available [facility] [address] [place], [address], 04/28/2025 07:24:10 04/23/2004/25/2025 MILLE NNIUM RESUL TS noroxycodone quantificati on negati ve NG/mL 50 normal Not Available [address] [address] [place], [address], 04/28/2025 07:24:10 04/23/2004/25/2025 MILLE NNIUM RESUL TS oxymorphone quantificati on negati ve NG/mL 50 normal Not Available [address] [address] [place], [address], 04/28/2025 07:24:10 04/23/2004/25/2025 MILLE NNIUM RESUL TS buprenorphin e quantificati on positi ve-150 .476 NG/mL 5 normal Not Available [facility] [address] [place], [address], 04/28/2025 07:24:10 04/23/2004/25/2025 MILLE NNIUM RESUL TS norbuprenorp ramy quantificati on positi ve-592 .149 NG/mL 20 normal Not Available [facility] [address] [employer], [address], 04/28/2025 07:24:10 04/23/2004/25/2025 MILLE NNIUM RESUL TS fentanyl quantificati on negati ve NG/mL 1 normal Not Available [address] [address] [employer], [address], 04/28/2025 07:24:10 04/23/2004/25/2025 MILLE NNIUM RESUL TS norfentanyl quantificati on negati ve NG/mL 8 normal Not Available [facility] [address] [place], [address], 04/28/2025 07:24:10 04/23/2004/25/2025 MILLE NNIUM RESUL TS methadone quantificati on negati ve NG/mL 100 normal Not Available [address] [address] [employer], [address], 04/28/2025 07:24:10 04/23/2004/25/2025 MILLE NNIUM RESUL TS EDDP (methadone metabolite) quantificati on negati ve NG/mL 100 normal Not Available [facility] [address] [employer], [address], 04/28/2025 07:24:10 04/23/2004/25/2025 MILLE NNIUM RESUL TS tramadol quantificati on negati ve NG/mL 100 normal Not Available [address] [place], [address], 04/28/2025 07:24:10 04/23/20 25 04/25/2025 MILLE NNIUM RESUL TS O-desmethyl- tramadol quantificati on negati ve NG/mL 100 normal Not Available [address] [place], [address], 04/28/2025 07:24:10 04/23/2004/25/2025 MILLE NNIUM RESUL TS N-desmethyl- tramadol quantificati on negati ve NG/mL 100 normal Not Available [address] [place], [address], 04/28/2025 07:24:10 04/23/2004/25/2025 MILLE NNIUM RESUL TS tapentadol quantificati on negati ve NG/mL 50 normal Not Available [address] [place], [address], 04/28/2025 07:24:10 04/23/20 25 04/25/2025 MILLE NNIUM RESUL TS meperidine quantificati on negati ve NG/mL 50 normal Not Available [address] [address] [place], [address], 04/28/2025 07:24:10 04/23/20 25 04/25/2025 MILLE NNIUM RESUL TS normeperidin e quantificati on negati ve NG/mL 50 normal Not Available [address] [address] [place], [address], 04/28/2025 07:24:10 04/23/2004/25/2025 MILLE NNIUM RESUL TS alpha-hydrox yalprazolam quantificati on negati ve NG/mL 20 normal Not Available [facility] [address] [place], [address], 04/28/2025 07:24:10 04/23/2004/25/2025 MILLE NNIUM RESUL TS 8-elqzz-odyt azepam quantificati on negati ve NG/mL 20 normal Not Available [address] [address] [employer], [address], 04/28/2025 07:24:10 04/23/20 25 04/25/2025 MILLE NNIUM RESUL TS lorazepam quantificati on negati ve NG/mL 40 normal Not Available [address] [employer] [place], [address], 04/28/2025 07:24:10 04/23/2004/25/2025 MILLE NNIUM RESUL TS nordiazepam quantificati on negati ve NG/mL 40 normal Not Available [facility] [address], [place], [address], 04/28/2025 07:24:10 04/23/2004/25/2025 MILLE NNIUM RESUL TS temazepam quantificati on negati ve NG/mL 50 normal Not Available [facility] [address] [facility], [address], 04/28/2025 07:24:10 04/23/20 25 04/25/2025 MILLE NNIUM RESUL TS oxazepam quantificati on negati ve NG/mL 40 normal Not Available [facility] [address], [place], [address], 04/28/2025 07:24:10 04/23/20 25 04/25/2025 MILLE NNIUM RESUL TS amphetamine quantificati on positi ve-565 9.800 NG/mL 100 normal Not Available [facility] [address] [facility], [address], 04/28/2025 07:24:10 04/23/2004/25/2025 MILLE NNIUM RESUL TS methylphenid ate quantificati on negati ve NG/mL 50 normal Not Available [address] [employer] [place], [address], 04/28/2025 07:24:10 04/23/2004/25/2025 MILLE NNIUM RESUL TS ritalinic acid quantificati on negati ve NG/mL 50 normal Not Available [address] [address] [employer], [address], 04/28/2025 07:24:10 04/23/2004/25/2025 MILLE NNIUM RESUL TS quetiapine quantificati on positi ve-821 4.183 NG/mL 25 normal Not Available [address] [address] [place], [address], 04/28/2025 07:24:10 04/23/2004/25/2025 MILLE NNIUM RESUL TS norquetiapin e quantificati on positi ve-> 6250 NG/mL 25 normal Not Available [address] [employer] [employer] [place], [address], 04/28/2025 07:24:10 04/23/2004/25/2025 MILLE NNIUM RESUL TS gabapentin quantificati on negati ve NG/mL 1000 normal Not Available [address] [address] [employer], [address], 04/28/2025 07:24:10 04/23/2004/25/2025 MILLE NNIUM RESUL TS pregabalin quantificati on negati ve NG/mL 400 normal Not Available [facility] [address] [place], [address], 04/28/2025 07:24:10 04/23/2004/25/2025 MILLE NNIUM RESUL TS ketamine quantificati on negati ve NG/mL 50 normal Not Available [facility] [address] [place], [address], 04/28/2025 07:24:10 04/23/20 25 04/25/2025 MILLE NNIUM RESUL TS norketamine quantificati on negati ve NG/mL 50 normal Not Available [facility] [address] [place], [address], 04/28/2025 07:24:10 04/23/20 25 04/25/2025 MILLE NNIUM RESUL TS naltrexone quantificati on negati ve NG/mL 10 normal Not Available [address] [address] [place], [address], 04/28/2025 07:24:10 04/23/20 25 04/25/2025 MILLE NNIUM RESUL TS naltrexol quantificati on negati ve NG/mL 10 normal Not Available [facility] [address] [place], [address], 04/28/2025 07:24:10 04/23/2004/25/2025 MILLE NNIUM RESUL TS naloxone quantificati on positi ve-66. 683 NG/mL 20 normal Not Available [facility] [address] [place], [address], 04/28/2025 07:24:10 04/23/2004/25/2025 MILLE NNIUM RESUL TS czolpidem quantificati on negati ve NG/mL 10 normal Not Available [facility] [address] [place], [address], 04/28/2025 07:24:10 04/23/20 25 04/25/2025 MILLE NNIUM RESUL TS carisoprodol quantificati on negati ve NG/mL 100 normal Not Available [address] [place], [address], 04/28/2025 07:24:10 04/23/2004/25/2025 MILLE NNIUM RESUL TS meprobamate quantificati on negati ve NG/mL 100 normal Not Available [address] [place], [address], 04/28/2025 07:24:10 04/23/2004/25/2025 MILLE NNIUM RESUL TS pentobarbita l quantificati on negati ve NG/mL 200 normal Not Available [address] [address] [place], [address], 04/28/2025 07:24:10 04/23/2004/25/2025 MILLE NNIUM RESUL TS phenobarbita l quantificati on negati ve NG/mL 200 normal Not Available [address] [place], [address], 04/28/2025 07:24:10 04/23/2004/25/2025 MILLE NNIUM RESUL TS secobarbital quantificati on negati ve NG/mL 200 normal Not Available [address] [address] [place], [address], 04/28/2025 07:24:10 04/23/2004/25/2025 MILLE NNIUM RESUL TS butalbital quantificati on negati ve NG/mL 200 normal Not Available [address] [address] [place], [address], 04/28/2025 07:24:10 04/23/2004/25/2025 MILLE NNIUM RESUL TS dextromethor thao negati ve NG/mL 50 normal Not Available [address] [address] [place], [address], 04/28/2025 07:24:10 04/23/2004/25/2025 MILLE NNIUM RESUL TS levorphanol / dextrorphan quantificati on negati ve NG/mL 50 normal Not Available [address] [address] [employer], [address], 04/28/2025 07:24:10 04/23/20 25 04/25/2025 MILLE NNIUM RESUL TS phentermine quantificati on negati ve NG/mL 50 normal Not Available [address] [address] [place], [address], 04/28/2025 07:24:10 04/23/2004/25/2025 MILLE NNIUM RESUL TS methamphetam ine quantificati on negati ve NG/mL 100 normal Not Available [address] [place], [address], 04/28/2025 07:24:10 04/23/2004/25/2025 MILLE NNIUM RESUL TS cocaine metabolite quantificati on negati ve NG/mL 50 normal Not Available [address] [place], [address], 04/28/2025 07:24:10 04/23/20 25 04/25/2025 MILLE NNIUM RESUL TS cthc (marijuana metabolite) quantificati on negati ve NG/mL 15 normal Not Available [address] [place], [address], 04/28/2025 07:24:10 04/23/20 25 04/25/2025 MILLE NNIUM RESUL TS MDMA quantificati on negati ve NG/mL 100 normal Not Available [address] [place], [address], 04/28/2025 07:24:10 04/23/20 25 04/25/2025 MILLE NNIUM RESUL TS 6-CRISTHIAN (heroin metabolite) quantificati on negati ve NG/mL 10 normal Not Available [address] [address] [place], [address], 04/28/2025 07:24:10 04/23/2004/25/2025 MILLE NNIUM RESUL TS phencyclidin e quantificati on negati ve NG/mL 10 normal Not Available [address] [address] [place], [address], 04/28/2025 07:24:10 04/23/2004/25/2025 MILLE NNIUM RESUL TS acetyl fentanyl quantificati on Fen Neg NG/mL 2 normal Not Available [address] [address] [place], [address], 04/28/2025 07:24:10 04/23/2004/25/2025 MILLE NNIUM RESUL TS acetyl norfentanyl quantificati on Fen Neg NG/mL 5 normal Not Available [address] [place], [address], 04/28/2025 07:24:10 04/23/2004/25/2025 MILLE NNIUM RESUL TS acryl fentanyl quantificati on Fen Neg NG/mL 1 normal Not Available [facility] [address] [place], [address], 04/28/2025 07:24:10 04/23/2004/25/2025 MILLE NNIUM RESUL TS carfentanil quantificati on Fen Neg NG/mL 2 normal Not Available [address] [place], [address], 04/28/2025 07:24:10 04/23/2004/25/2025 MILLE NNIUM RESUL TS para-fluorof entanyl quantificati on Fen Neg NG/mL 1 normal Not Available [facility] [address] [employer], [address], 04/28/2025 07:24:10 04/23/2004/25/2025 MILLE NNIUM RESUL TS 2-methyl AP-237 quantificati on negati ve NG/mL 10 normal Not Available [address] [place], [address], 04/28/2025 07:24:10 04/23/2004/25/2025 MILLE NNIUM RESUL TS brorphine quantificati on negati ve NG/mL 15 normal Not Available [address] [place], [address], 04/28/2025 07:24:10 04/23/2004/25/2025 MILLE NNIUM RESUL TS metonitazene quantificati on negati ve NG/mL 5 normal Not Available [facility] [address] [place], [address], 04/28/2025 07:24:10 04/23/2004/25/2025 MILLE NNIUM RESUL TS 8-aminoclona zolam quantificati on negati ve NG/mL 10 normal Not Available [facility] [address] [facility], [address], 04/28/2025 07:24:10 04/23/20 25 04/25/2025 MILLE NNIUM RESUL TS etizolam quantificati on negati ve NG/mL 10 normal Not Available [facility] [address] [facility], [address], 04/28/2025 07:24:10 04/23/2004/25/2025 MILLE NNIUM RESUL TS alpha-hydrox yetizolam quantificati on negati ve NG/mL 10 normal Not Available [address] [place], [address], 04/28/2025 07:24:10 04/23/2004/25/2025 MILLE NNIUM RESUL TS flualprazola m quantificati on negati ve NG/mL 10 normal Not Available [address] [place], [address], 04/28/2025 07:24:10 04/23/20 25 04/25/2025 MILLE NNIUM RESUL TS flubromazola m quantificati on negati ve NG/mL 10 normal Not Available [address] [address] [place], [address], 04/28/2025 07:24:10 04/23/20 25 04/25/2025 MILLE NNIUM RESUL TS nuu035 metabolite quantificati on negati ve NG/mL 10 normal Not Available [address] [address] [place], [address], 04/28/2025 07:24:10 04/23/20 25 04/25/2025 MILLE NNIUM RESUL TS sdi848 metabolite quantificati on negati ve NG/mL 10 normal Not Available [address] [address] [place], [address], 04/28/2025 07:24:10 04/23/20 25 04/25/2025 MILLE NNIUM RESUL TS rcs4 metabolite quantificati on negati ve NG/mL 10 normal Not Available [address] [address] [place], [address], 04/28/2025 07:24:10 04/23/2004/25/2025 MILLE NNIUM RESUL TS xlr11/ur144 metabolite negati ve NG/mL 10 normal Not Available [facility] [address] [place], [address], 04/28/2025 07:24:10 04/23/20 25 04/25/2025 MILLE NNIUM RESUL TS 5F-adb-M7 negati ve NG/mL 10 normal Not Available [address] [address] [place], [address], 04/28/2025 07:24:10 04/23/2004/25/2025 MILLE NNIUM RESUL TS Ab-fubinaca- M3 negati ve NG/mL 10 normal Not Available [address] [address] [place], [address], 04/28/2025 07:24:10 04/23/2004/25/2025 MILLE NNIUM RESUL TS mdmb-fubinac a-M1 negati ve NG/mL 10 normal Not Available [address] [address] [place], [address], 04/28/2025 07:24:10 04/23/2004/25/2025 MILLE NNIUM RESUL TS eutylone quantificati on negati ve NG/mL 10 normal Not Available [address] [address] [place], [address], 04/28/2025 07:24:10 04/23/2004/25/2025 MILLE NNIUM RESUL TS methylone quantificati on negati ve NG/mL 3 normal Not Available [address] [place], [address], 04/28/2025 07:24:10 04/23/2004/25/2025 MILLE NNIUM RESUL TS xylazine quantificati on negati ve NG/mL 10 normal Not Available [address] [place], [address], 04/28/2025 07:24:10 04/23/2004/25/2025 MILLE NNIUM RESUL TS 4-hydroxy xylazine quantificati on negati ve NG/mL 10 normal Not Available [address] [place], [address], 04/28/2025 07:24:10 04/23/2004/25/2025 MILLE NNIUM RESUL TS mitragynine (kratom alkaloid) quantificati on negati ve NG/mL 1 normal Not Available [address] [address] [place], [address], 04/28/2025 07:24:10 04/23/2004/25/2025 MILLE NNIUM RESUL TS 9-lb-imvrajn nine (kratom alkaloid) quantificati on negati ve NG/mL 1 normal Not Available [address] [place], [address], 04/28/2025 07:24:10 04/23/2004/25/2025 MILLE NNIUM RESUL TS ethyl glucuronide quantificati on positi ve-614 7.800 NG/mL 500 abnormal Not Available [address] [address] [place], [address], 04/28/2025 07:24:10 04/23/2004/25/2025 MILLE NNIUM RESUL TS ethyl sulfate quantificati on positi ve-149 5.739 NG/mL 500 abnormal Not Available [address] [place], [address], 04/28/2025 07:24:10 04/23/2004/25/2025 MILLE NNIUM RESUL TS creatinine normal -178.3 mg/dL >20 mg/dL normal Not Available [address] [place], [address], 04/28/2025 07:24:10 04/23/2004/25/2025 MILLE NNIUM RESUL TS oxidant normal -0 ug/mL <200 ug/mL normal Not Available [address] [place], [address], 04/28/2025 07:24:10 04/23/2004/25/2025 MILLE NNIUM RESUL TS pH normal -5.4 4.5 - 9.5 normal Not Available [address], [place], [address], 04/28/2025 07:24:10 04/23/2004/25/2025 [facility] TS specific gravity normal -1.027 1.003 - 1.035 normal Not Available [address] [place], [address], 04/28/2025 07:24:10 Result Notes None recorded. Problems Name Problem SNOMED Code Status Onset Date Resolution Date Notes Provider Name and Address Organization Details Recorded Time Opioid dependence 92236466 Active 2023 MARILEE HOUSTON NP [address], [address], [facility] 16:07:43 Chronic post-traumatic stress disorder 875792012 Active 2024 BRANDT GARCIA NP [address], [address], [facility] 5 12:50:16 Attention deficit hyperactivity disorder, predominantly hyperactive impulsive type 6421382 Active 2024 BRANDT GARCIA NP [address], [address], [facility] 5 13:00:11 Generalized anxiety disorder 38563146 Active 2024 BRANDT GARCIA NP [address], [address], [facility] 5 13:00:20 Attention deficit hyperactivity disorder 682680225 Active 2024 MARILEE HOUSTON NP [address], [address], [facility] 5 09:33:42 Problem Notes None recorded. Procedures Surgical History Date Name Laterality Status Provider Name and Address Organization Details Recorded Time excision of lipoma completed Alma Claros [facility] 05/01/2024 11:40:53 Imaging Results None recorded. Procedure Notes None recorded. Medical Equipment None Reported. Allergies Allergen ID Allergen Name Allergen Category Reaction Reaction Severity Criticality Documentation Date Start Date Code Code System Note Provider Name and Address Organization Details Recorded Time 00822 lidocaine medicatio n swelling Not available low 04/29/20252020 6387 RxNorm Not Available [facility] prod 13:14:42 02753 tramadol medicatio n seizure Not available high 04/29/20252024 92310 RxNorm Not Available [facility] - prod 13:14:42 Medications Name Sig Start Date Stop Date Status Note LastModified by Organization Details LastModified Time clonidine HCl 0.1 mg tablet 07/24 completed Not Available Not Available Not Available quetiapine 300 mg tablet TAKE 2 TABLETS BY MOUTH EVERY DAY AT BEDTIME active Not Available Not Available No t Available dextroamph etamine-am phetamine 10 mg tablet TAKE 2 TABLETS BY MOUTH DAILY AT 2 PM 07/31 completed Not Available Not Available Not Available sertraline 100 mg tablet 04/03 completed Not Available Not Available Not Available Debrox 6.5 % ear drops INSTILL 5 DROPS INTO AFFECTED EAR(S) BY OTIC ROUTE 2 TIMES PER DAY 08/28 completed Not Available Not Available Not Available Adderall XR 20 mg capsule,ex tended release Take 1 capsule every day by oral route. 06/04 completed Not Available Not Available Not Available dextroamph etamine-am phetamine 30 mg tablet TAKE 1 TABLET BY MOUTH DAILY AT 2 PM 03/11 completed Not Available Not Available Not Available oxycodone- acetaminop hen 5 mg-325 mg tablet TAKE 1 TABLET BY MOUTH EVERY 8 HOURS NEEDED FOR PAIN 04/03 completed Not Available Not Available Not Available cephalexin 500 mg capsule 04/03 completed Not Available Not Available Not Available trazodone 150 mg tablet 04/03 completed Not Available Not Available Not Available dextroamph etamine-am phetamine 20 mg tablet TAKE 1 TABLET BY [...] completed Not Available Not Available Not Available dextroamph etamine-am phetamine ER 30 mg 24hr capsule,ex tend release take 1 capsule BY MOUTH TWICE DAILY FOR 28 DAYS FOR adhd 04/30 completed Pt taking more than prescri bed, hiding it in his sock per ER Not Available Not Available Not Available buprenorph ine 8 mg-naloxon e [address] 1.5 tablets twice a day by sublingu al route for 7 days. 2024 active Not Available Not Available Not Avai lable Suboxone 8 mg-[address] FILM UNDER THE TONGUE DAILY 04/03 completed Not Available Not Available Not Available naloxone 4 mg/actuati on nasal spray 1 actuatio n in one nostril x1 may repeat dose in alternat e nostrils q2-3min until pt responsi ve or EMS arrives 2023 active Not Available Not Available Not Avai lable Vitals Date Recorded Body height Body mass index (BMI) Body weight Body temperature Heart rate Oxygen saturation Oxygen saturation in Arterial blood by Pulse oximetry Respiratory rate Heart rate Systolic And Diastolic Systolic And Diastolic Provider Name and Address Organization Details Last Updated DateTime 194.31 cm 31.6 kg/m2 562532. 49 g 98.8 [degF] 113 /min 98 % 98 % 18 /min 102 /min 175/112 mm[Hg] 150/105 mm[Hg] Tiffany Lyle [facility] 09:01:41 Date Recorded Body height Body mass index (BMI) Body weight Provider Name and Address Organization Details Last Updated DateTime 03/11/2025 194.31 cm 31.4 kg/m2 440239.61 g Kell Navas [facility] 03/11/2025 12:00:44 Date Recorded Body height Body weight Body mass index (BMI) Provider Name and Address Organization Details Last Updated DateTime 03/26/2025 194.31 cm 127895.61 g 31.4 kg/m2 Nicolle Henderson [facility] 03/26/2025 09:19:08 Date Recorded Body height Body mass index (BMI) Body weight Provider Name and Address Organization Details Last Updated DateTime 04/16/2025 198.12 cm 30.2 kg/m2 035069.61 g Kathleen Gonsalves [facility] 04/16/2025 09:29:19 Date Recorded Body height Body mass index (BMI) Body weight Body temperature Oxygen saturation Oxygen saturation in Arterial blood by Pulse oximetry Respiratory rate Systolic And Diastolic Systolic And Diastolic Provider Name and Address Organization Details Last Updated DateTime 198.12 cm 30 kg/m2 268412. 02 g 98.8 [degF] 96 % 96 % 16 /min 120/96 mm[Hg] 120/92 mm[Hg] Austin Valdo [facility] 12:23:27 Social History Question Answer Notes LastModified by Organizat ion Details LastModified Time Tobacco Smoking Status Former Smoker Tiffany Valdo [facility] 04/08/2024 11:44:36 Do You Have An Advance Directive? No [email or web address] Information not available 04/08/2024 How Many Years Have You Consumed Alcohol? 22 [email or web address] Information not available 04/23/2025 Do You Wear A Helmet When Biking? No [email or web address] Information not available 04/08/2024 Are You Blind Or Do You Have Difficulty Seeing? No Information not available 04/08/2024 Is Blood Transfusion Acceptable In An Emergency? Yes [email or web address] Information not available 04/08/2024 What Is Your Level Of Caffeine Consumption? Moderate Information not available 05/01/2024 How Much Tobacco Do You Chew? 1/day [email or web address] Information not available 04/23/2025 Have You Been To An Area Known To Be High Risk For COVID-19? No Information not available 04/08/2024 Are You Deaf Or Do You Have Serious Difficulty Hearing? No Information not available 04/08/2024 What Type Of Diet Are You Following? REGULAR [email or web address] Information not available 04/08/2024 Which Illicit Or Recreational Drugs Have You Used? HEROINE, OXY, FENTNYL, XANAX Pt Reports He Hasn't Used In Over A Year. GLADIS Lester [email or web address] Information not available 04/23/2025 What Is The Highest Grade Or Level Of School You Have Completed Or The Highest Degree You Have Received? [id number] [email or web address] Information not available 04/08/2024 Diabetic Eye Exam 03/25/2025 [email or web address] Information not available 04/23/2025 In The Past 6 Months Have You Fallen No [email or web address] Information not available 04/08/2024 Have You Ever Been Tested For Hepatitis C Yes Information not available 04/08/2024 Have You Had A Blood Transfusion Before 1991? No [email or web address] Information not available 04/08/2024 Have You Had Hiv Prevention Specialist Dialysis? No Information not available 04/08/2024 Have You Ever Used Injectable Drugs, Even Once? Yes [email or web address] Information not available 04/08/2024 Do You Have Tattoos Or Body Piercings? Yes [email or web address] Information not available 04/08/2024 Have You Had Close Contact With An Individual With Hepatitis C? No [email or web address] Information not available 04/08/2024 Have You Ever Had Sex For Drugs Or Money? No [email or web address] Information not available 04/08/2024 Have You Ever Had Unprotected Sex? Yes [email or web address] Information not available 04/08/2024 Have You Been Incarcerated For Longer Than 6 Months? No [email or web address] Information not available 04/08/2024 Have You Tested Positive For HIV? No [email or web address] Information not available 04/08/2024 Do You Have A History Of Fist Fighting Or Combat Experience? Yes Information not available 04/08/2024 Medication List Reconciled Yes Information not available 04/08/2024 What Number (0-10) [...] No New Appt. To Report. GLADIS Lester [email or web address] Information not available 07/31/2024 Sexual Orientation Straight Or Heterosexual Information not available 04/08/2024 Gender Identity Male [email or web address] Informati on not available 04/08/2024 Eye Exam 03/09/2024 Not Recently- GLADIS Lester 04/23/25 [email or web address] Information not available 04/08/2024 Do You Feel Safe Yes [email or web address] Information not available 04/08/2024 What Was The Date Of Your Most Recent Tobacco Screening? 04/23/2025 [email or web address] Information not available 04/23/2025 How Many Children Do You Have? 2 [email or web address] Information not available 04/08/2024 Do You Use Protection During Sex? Always [email or web address] Information not available 04/08/2024 What Is Your Relationship Status? Information not available 04/08/2024 Do You Use Your Seat Belt Or Car Seat Routinely? Yes [email or web address] Information not available 04/08/2024 Are You Sexually Active? Yes [email or web address] Information not available 04/08/2024 At What Age Did You Start Smoking Tobacco? 15 Information not available 04/23/2025 How Much Tobacco Do You Smoke? No [email or web address] Information not available 04/23/2025 How Many Years Have You Smoked Tobacco? 10 [email or web address] Information not available 04/23/2025 Do You Have Difficulty Walking Or Climbing Stairs? No Information not available 05/01/2024 Sex: Male Functional Status Question Answer Note LastModified by Organizat ion Details LastModified Time Do you use any illicit or recreational drugs? No [email or web address] Information not available 04/16/2025 Do you or have you ever used any other forms of tobacco or nicotine? Yes [email or web address] Information not available 04/10/2024 What is your level of alcohol consumption? Occasional [email or web address] Information not available 04/23/2025 Do you or have you ever used smokeless tobacco? Currently chews tobacco twice monthly only when doing yard work. GLADIS [email or web address] Information not available 04/23/2025 Are you currently employed? No [email or web address] Information not available 04/08/2024 Do you have transportation difficulties? No Information not available 05/01/2024 Are you able to walk independently without assistance or assistive devices? [email or web address] Information not available 04/08/2024 Do you have difficulty doing errands alone? No [email or web address] Information not available 04/08/2024 Are you able to care for yourself independently? Yes Information not available 04/08/2024 Do you have difficulty dressing, bathing, grooming, or toileting? No [email or web address] Information not available 04/08/2024 Do you or have you ever used e-cigarettes or vape? Current user of electronic cigarettes twice monthly only when doing yard work. GLADIS lester Information not available 04/23/2025 What is your exercise level? Moderate [email or web address] Information not available 04/08/2024 Mental Status Question Answer Note LastModified by Organizat ion Details LastModified Time Do you feel stressed (tense, restless, nervous, or anxious, or unable to sleep at night)? [id number] Information not available 03/11/2025 Do you have difficulty concentrating, remembering or making decisions? No [email or web address] Information no t available 04/08/2024 Family History Relationship Description Onset Age of this Age Resolved Age Notes LastModified by Organization Details LastModified Time Unspecified Relation Hypertensive disorder [email or web address] Not available 2023 11:42:54 Medical History Condition Response Other N Gout N Blood Diseases N Kidney Stones N Hyperthyroidism N Blood Transfusion N Depression N COPD N Incontinence N Edema N Endocrine Disorders N Anxiety Disorder N Muscle, Joint, or Bone Problems N Obesity N Vision or Eye Problems N Arthritis N Auditory Hallucinations N Infertility N Cancer N Varicosities N Stroke N Headaches N Fibromyalgia N Kidney Disease N Abnormal Bleeding N Reproductive System Problems N Ear or Hearing Problems N Hospitalizations N Learning Disorder N Eating Disorder N Skin Problems N MRSA exposure N Constipation N Urinary Problems N Brain Injury N Visual Hallucinations N Tuberculosis N AIDS/HIV N Back Problems N Asthma N GERD/Reflux N Hepatitis N Pulmonary Embolism N Chronic Ear Infections N Chicken Pox N Autism Spectrum Disorder (ASD) N Thrombophilias N Thyroid Disease N Breast Cancer N Lung Disease N Hypothyroidism N Developmental or Behavioral Disorders N Defects [...] Anemia N Colon Polyps N Heart Attack ([place]) N Diabetes N Ovarian Cancer N Bedwetting N Seizures/Epilepsy N Amnesia N Congestive Heart Failure (CHF) N Eczema N Dementia N Diverticulitis N Abuse/Domestic Violence N Cardiovascular N Tourette Syndrome N Hypertension N Pre-Eclampsia N Osteoporosis N Immunizations Vaccine Type Date Status Note Provider Nam e and Address Organization Details Recorded Time Influenza, split virus, quadrivalent, preservative 9 completed Alma Counts [facility] 05/01/2024 11:37:39 Influenza, adjuvanted, trivalent, PF 7 completed Alma Counts [facility] 05/01/2024 11:37:39 COVID-19, mRNA, LNP-S, PF, 100 mcg/0.5mL dose or 50 mcg/0.25mL dose 1 completed Alma Counts [facility] 05/01/2024 11:37:39 COVID-19, mRNA, LNP-S, PF, 100 mcg/0.5mL dose or 50 mcg/0.25mL dose 1 completed Alma Counts [facility] 05/01/2024 11:37:39 Tdap 9 completed Alma Counts [facility] 05/01/2024 11:37:39 Tdap 4 completed Alma Counts [facility] 05/01/2024 11:37:39 Influenza, split virus, trivalent, preservative 4 completed Alma Counts null, [facility] 05/01/2024 11:37:40 Influenza, split virus, trivalent, preservative 7 completed Alma Counts null, [facility] 05/01/2024 11:37:40 Influenza, split virus, trivalent, PF 5 completed Alma Counts null, [facility] 05/01/2024 11:37:40 Influenza, split virus, trivalent, PF 6 completed Alma Counts null, [facility] 05/01/2024 11:37:40 Hep B, adult 9 completed Alma Counts null, [facility] 05/01/2024 11:37:40 Hep A, adult 9 completed Alma Counts null, [facility] 05/01/2024 11:37:40 Influenza, split virus, quadrivalent, PF 0 completed Alma Counts null, [facility] 05/01/2024 11:37:40 Influenza, MDCK, trivalent, PF 4 completed Alma Counts null, [facility] 05/01/2024 11:59:05 HPV9 4 completed MARILEE HOUSTON, POLYSOMNOGRAPHIC TECH [address], [address], [facility] 05/01/2024 20:39:13 HPV9 5 completed Gisselle Chandler null, [facility] 07/31/2024 11:49:18 HPV9 5 completed MARILEE HOUSTON, POLYSOMNOGRAPHIC TECH [address], [address], [facility] 09/02/2024 16:53:51 Hep B, adult 5 completed Nicolle Henderson null, [facility] 10/30/2024 11:38:51 Hep B, adult 5 completed Tiffany Lyle [facility], [facility] 11/27/2024 09:40:14 Hep B, adult 5 completed Austin Lyle [facility], [facility] 04/23/2025 13:19:24 Past Encounters Encounter ID Performer Location Encounter Start Date Encounter Closed Date Diagnosis/Indication Diagnosis SNOMED-CT Code Diagnosis ICD10 Code Diagnosis IMO Codes Diagnosis Note [id number] Akil Babin, [facility] [place] [address] [place] [address] 04/03/2024 16:00:06 04/07/2024 14:26:01 Opioid dependence 38831143 F11.20 We discussed opioid addiction in general.We [...] peer support available. Continue counsellin g as desired.Alex ep follow ups with specialist (s).PDMP reviewed: oxycodone 03/24/24 otherwise buprenorph ine.Follow up in 1 week Diet education 68602671 Z71.3 Healthy diet recommende d with increased green vegetables (50% of plate) Exercises education, guidance, and counseling 951942423 Z71.82 Recommend exercise of at least 150 minutes per week, 10 minutes minimum uninterrup giancarlo. Finding of body mass index 924837476 Z68.27 BMI 27 Bipolar disorder 7221432 4 F31.9 C-SSRS SCREENER/T RIAGE Ask Questions [...] Patient Safety Precaution s. If Behavioral Health Environmental Health And Safety Manager ([facility]) is not available please complete paper copy of C-SSRS Triage with SAFE-T (located in [employer] Forms). Order for [facility] Scheduled Handoff.5) Behavioral Health Consultati on (warm handoff) and Patient Safety Precaution s. If Behavioral Health Environmental Health And Safety Manager ([facility]) is not available please complete paper copy of C-SSRS Triage with SAFE-T (located in [employer] Forms). Order for [facility] Scheduled Handoff.6) Lifetime: Order for Behavioral Health Referral. Give patient 988 Suicide/Li feline Crisis Card.6) Within the past 3 month: Behavioral Health Consultati on(warm handoff) and Patient Safety Precaution s. If Behavioral Health Environmental Health And Safety Manager ([facility]) is not available please complete paper copy of C-SSRS Triage with SAFE-T (located in [employer] Forms). Order for [facility] Scheduled Handoff. States he has no desire to kill himself, committed suicide and he has raised his kids alone for 20 years. Reports he would not do that.Feels well on seroquel monotherap y. [id number] Akil Babin [facility] [address] [place] [address] 04/10/2024 11:21:40 04/15/2024 08:21:55 Opioid dependence 41139622 F11.20 UDS today:sent to labUDS PRIOR: not [...] oxycodone 03/24/24 otherwise buprenorph ine. Bipolar disorder 6799695 4 F31.9 Feels well on seroquel monotherap y.PHQ is 0 today Venereal d isease screening 227011405 Z11.3 Blood and urine sent to lab to screen for venereal disease HIV screening 965044966 Z11.4 Blood drawn to screen for HIV [id number] Akil Babin DO [facility] [address] [place] [address] 05/01/2024 11:18:24 05/05/2024 16:04:34 Opioid dependence 97993018 F11.20 UDS today:sent to labUDS PRIOR: BUP, NORBUP, NALOXONE, SeroquelCo ntinue same dose of buprenorph ine. Take only as prescribed .Follow up in 4 weeks.Cont inue counsellin g as desired.Ke ep follow ups with specialist (s).Curren t dose of buprenorph ine is: 24 mg/dPDMP reviewed: oxycodone 03/24/24 otherwise buprenorph ine, consistent . Bipolar disorder 4184800 4 F31.9 Feels well on seroquel monotherap y.PHQ is 1 today Hepatitis C antibody detected 852492394 Z86.19 Check RNA today. Tobacco us e cessation education 754648343 Z71.6 Discussed risks of smoking and benefits of cessation (briefly, less than 3 min) Active or passive immunization 901370065 Z23 Discussed gardasil, would like to have series.Fir st dose today 05/01/2024 Second dose 05/29/2024 Final dose 10/30/24 Long-term drug therapy 722856003 Z79.891 sti screen negativeCB C normalCMP unremarkab le.Hep A exposed/ immuneHep B not immune or exposedHep C Exposed, [id number] KENDY COOK, DO [facility] [address] [place] [address] 05/20/2024 15:53:49 05/21/2024 10:09:26 Bipolar disorder 86669808 F31.9 Attention deficit hyperactivity disorder 041228625 F90.9 [id number] Austin Foster [facility] [employer] [address] [facility] [address] [place] [address] 05/21/2024 15:12:42 05/21/2024 17:21:01 Food insecurity 866254144 Z59.41 Referred by [facility] Member:Binta Foster/ [address] [phone] The following is a list of community resources that may meet your specific needs. AGENCY INFORMASTI ON: [facility] [address] [facility] in [facility], [place] [id number] in [facility], [id number] [phone] [facility] 38189739 Z59. 87 Referred by [facility] Member:Binta Foster/ [address] [phone] The following is a list of community resources that may meet your specific needs. AGENCY INFORMASTI ON: [employer] [facility] [id number] [place], [place] [id number] [phone] [id number] Akil Babin, DO [facility] [address] [place] [address] 06/04/2024 09:57:26 06/04/2024 17:23:18 Opioid dependence 63404500 F11.20 Establishe d with Sofie 9.26.24Has been off and on suboxone for 10+ yearsHx of heroin use Has 2 kids - [facility] ViewHe states he is pretty good about taking his meds Will do 2nd Gardasil injection at next visit as his shoulder is sore he says F/u in 4 weeks Bipolar disorder 8895401 4 F31.9 Was dx in the 90's [...] not have bipolar. Attention deficit hyperactivity disorder 947987934 F90.9 Long history since childhood of ADHD. [...] ADHD not side effects of his Seroquel [id number] Akil Babin, [facility] [address] [place] [address] 06/30/2024 10:16:12 06/30/2024 11:41:11 Opioid dependence 53005800 F11.20 Current UDS: none d/t phone visitPrior UDS: bup, norbup, seroquelPD MP with our recent fills only Holidays are okayDoing good on Suboxone Needs 2nd Gardasil at F/u F/u in 1 month meds workign well f/u next month with Sofie Bipolar disorder 5042834 4 F31.9 Attention deficit hyperactivity disorder 317795644 F90.9 Last visit Adderall increased to 30 mgPatient states that he thinks this dose is just rightHe has gained 2 pounds he saysEveryt marina is running smooth - routine is goodDiscus sed hanging at this dose to see how he does holidays goign well [id number] Akil Babin, [facility] [place] [address] [place] [address] 07/15/2024 13:41:39 07/15/2024 15:51:50 Opioid dependence 52475619 F11.20 Current UDS: none d/t phone visitPrior UDS: bup, norbup, seroquelPD MP with our fills only Needs 2nd Gardasil at f/u this is not a MAT visit today Attention deficit hyperactivity disorder 252192078 F90.9 Patient states he could be betterPati [...] a short acting medicatonH as f/u with Osfie next weekPrior urine was negative for Adderall also will need to follow that closely and also consider a urine and oral swab at follow-up Bipolar disorder 0920206 4 F31.9 Full diagnosis unclear. Previously had not thought he had true bipolar. It sounds like he could certainly have some OCD. Possible PTSD since his . If no better with this extra IR Adderall strongly consider him seeing Brandt for more in-depth diagnostic evaluation He does not think he can do counseling marct rosemary at this point [id number] Akil Babin DO [facility] [address] [place] [address] 07/24/2024 11:11:12 07/28/2024 08:33:53 Opioid dependence 59244556 F11.20 UDS today: deferred due to virtual visit.UDS PRIOR: 06/04/2024 BUP, NORBUP, NALOXONE, SeroquelCo ntinue same dose of buprenorph ine. Take only as prescribed .Follow up in 4 weeks.Cont inue counsellin g as desired.Ke ep follow ups with specialist (s).Rafael brown dose of buprenorph ine is: 24 mg/dPDMP reviewed: consistent Attention deficit hyperactivity disorder 570938901 F90.9 Patient states he is doing much [...] will come in next week. Bipolar disorder 5428559 4 F31.9 He states he is feeling good with current dose of adderall but would like to see Brandt in September.PHQ and RAMBO are zero. Tobacco us e cessation education 419071155 Z71.6 Discussed risks of smoking and benefits of cessation (briefly, less than 3 min)chewin g tobacco, cutting down on this a littl Active or passive immunization 930898402 Z23 Discussed gardasil, would like to have series.Fir st dose today 05/01/2024 Second dose DUE NOWFinal dose 10/30/24Wil l give next week. Suitable f or telehealth monitoring 360733653 Z78.9 Virtual visit with AUDIO ONLY. Pt was at home and provider at [facility] in [place] MOPt was on a phone visit that lasted 6 minutes and 25 seconds [id number] Akil Babin DO [facility] [address] [place] [address] 07/31/2024 10:26:50 08/04/2024 18:20:00 Opioid dependence 45308503 F11.20 UDS today: sent to labUDS PRIOR: 06/04/2024 BUP, NORBUP, NALOXONE, SeroquelCo ntinue same dose of buprenorph ine. Take only as prescribed .Follow up in 4 weeks.Cont inue counseljorge g as desired.Ke ep follow ups with specialist (s).Rafael brown dose of buprenorph ine is: 24 mg/dPDMP reviewed: consistent Attention deficit hyperactivity disorder 316363073 F90.9 Patient states pharmacy was out of 20mg and he had to take (2) 10mg and states the 20mg worked a lot better.He is taking the 30mg XR at 530am and the 20mg at 2pm daily.Prio r urine was negative for Adderall last UDS, will need to follow that closely and plan a urine and oral swab today. Bipolar disorder 9872287 4 F31.9 He states he is feeling good with current dose of adderall but would like to see Brandt in September.They have attempted to reach him to schedule this but have not been able to reach him.Ashley rodriguez to reschedule this was completed. Tobacco us e cessation education 745538851 Z71.6 Discussed risks of smoking and benefits of cessation (briefly, less than 3 min)chewin g tobacco, cutting down on this a little Active or passive immunization 163231327 Z23 Gardasil series:Fir st dose today 05/01/2024 Second dosepast due, will give today 07/31/2024F inal dose due in 12 weeks, 2024 Essential hypertension 19842943 I10 baseline EKGOnly had 3 hours of sleep last nightUsed to take clonidine, has been out for a month or so.He was prescribed clonidine for BP Impacted c erumen of bilateral ears 0279079634 698377 H61.23 Discussed avoiding use of Qtips and using debrox [id number] Austin Foster [facility] [employer] [address] [facility],[address] [place] [address] 07/31/2024 10:58:07 07/31/2024 15:02:17 [id number] Akil Babin DO [facility] [place] [address] [place] [address] 08/28/2024 10:05:36 09/01/2024 08:34:04 Opioid dependence 70203325 F11.20 UDS today: deferred due to virtual visit.UDS PRIOR: 07/31/2024 adderall, bup, norbup, naloxone, seroquel, ETOH positiveSt ates he had a few drinks that week but denies drinking regularly. Follow up in 4 weeks.Cont inue counsellin g as desired.Ke ep follow ups with specialist (s).Rafael brown dose of buprenorph ine is: 24 mg/dPDMP reviewed: consistent Attention deficit hyperactivity disorder 756769051 F90.9 Started adderall on 05/20/24 His UDS [...] request Rx from Syl Mcnally. Bipolar disorder 6650084 4 F31.9 He states he is feeling good with current dose of adderall but would like to see Barndt for mood. He is scheduled for 09/02/24 and he verbalizes awareness of this. Tobacco us e cessation education 115363047 Z71.6 chewing tobacco, cutting down on this a little Active or passive immunization 894730512 Z23 Gardasil series:Fir st dose today 05/01/2024 Second dosepast due, given 07/31/2024, which was >4 weeks since first dose; will need to repeat next week when he is in clinic. Plan for 09/02/24Fin al dose due in 12 weeks, 10/02/2024 Essential hypertension 02056211 I10 Virtual visit will recheck BP next week, continue lisinopril until then. Impacted c erumen of bilateral ears 8785919399 325734 H61.23 pt states he can hear much better, Suitable f or telehealth monitoring 153330339 Z78.9 Pt was on a phone visit that lasted 5 minutes and 12 secondsVir tual visit with AUDIO ONLY. Pt was at home and provider at home due to inclement weather and hazardous road conditions . [id number] Akil Babin DO [facility] [address] [place] [address] 09/02/2024 11:45:55 09/03/2024 17:48:06 Chronic post-traumatic stress disorder 252421244 F43.12 see hpi, new dx. pt open to counseling . will refer Attention deficit hyperactivity disorder, predominantly hyperactive impulsive type 3552003 F90.1 see hpi, symptoms improved with medication Generalize d anxiety disorder 34587487 F41.1 see hpi, symptoms well controlled Opioid dependence 133851 00 F11.20 see hx, currently on suboxone [id number] Akil Babin [facility] [address] [place] [address] 09/02/2024 11:53:53 09/03/2024 18:01:51 Opioid dependence 75229985 F11.20 UDS today: deferred due to virtual visit.UDS PRIOR: 07/31/2024 adderall, bup, norbup, naloxone, seroquel, ETOH positiveSt ates he had a few drinks that week but denies drinking regularly. Follow up in 4 weeks.Cont inue counsellin g as desired.Ke ep follow ups with specialist (s).Rafael brown dose of buprenorph ine is: 24 mg/dPDMP reviewed: consistent Immunization due 6709193 08 Z28.39 [id number] Aikl Babin [facility] [address] [place] [address] 2024 14:07:24 09/29/2024 08:22:28 Opioid dependence 17187489 F11.20 UDS today: deferred due to virtual visit.UDS PRIOR: 07/31/2024 adderall, bup, norbup, naloxone, seroquel, ETOH positiveHe reports he feels good on current dose. instructed to take only as prescribed .[facility]Alex [facility] follow ups with specialist (s).Curren t dose of buprenorph ine is: 24 mg/dPDMP reviewed: consistent Attention deficit hyperactivity disorder 201448431 F90.9 Doing well on Adderall 30mg at 2pm and adderall XR 30mg daily.Will request refill from Dr Mcnally. Tobacco Cubicle e cessation education 692866544 Z71.6 chewing tobacco, cutting down on this a little Essential hypertension 65668496 I10 Home BP normal Suitable f or telehealth monitoring 258615352 Z78.9 Pt was on a phone visit that lasted 7 minutes and 32 secondsVir tual visit with AUDIO ONLY. Pt was in a vehicle traveling and provider was at [facility]. Chronic post-traumatic stress disorder 326026659 F43.12 Continue counseling . Generalize d anxiety disorder 28243492 F41.1 RAMBO 0 [id number] Akil Babin DO [facility] [address] [place] [address] 10/02/2024 14:20:08 10/06/2024 10:09:52 Opioid dependence 76009292 F11.20 UDS today: deferred due to virtual visit.UDS PRIOR: 07/31/2024 adderall, bup, norbup, naloxone, seroquel, ETOH positiveHe reports he feels good on current dose. instructed to take only as prescribed .[facility].Alex ep follow ups with specialist (s).Claudioen t dose of buprenorph ine is: 24 mg/dPDMP reviewed: consistent Attention deficit hyperactivity disorder 607001616 F90.9 Doing well on Adderall 30mg at 2pm and adderall XR 30mg daily.Will request refill from Dr Mcnally. Tobacco Cubicle e cessation education 178279821 Z71.6 chewing tobacco, cutting down on this a little Essential hypertension 32052494 I10 BP normal Adult heal th examination 116375003 Z00.00 Discussed as above Wheezing 98172916 R06.2 cleared with deep breathingw ill check spirometry next visit if still present. [id number] Akil Babin DO [facility] [address] [place] [address] 10/30/2024 09:04:56 11/03/2024 12:48:05 Opioid dependence 53289049 F11.20 UDS today: sent to lab.UDS PRIOR: 10/02/24 BUP, NORBUP, NALOXONE, adderall amphetamin e and quetiapine .He reports he feels good on current dose. instructed to take only as prescribed .Follow up in 4 weeksConti florencio farias as desired.AA meetings on Wednesdays and Sundays.Alex ep follow ups with specialist (s).Curren t dose of buprenorph ine is: 24 mg/dPDMP reviewed: consistent Attention deficit hyperactivity disorder 615279843 F90.9 Doing well on Adderall 30mg at 2pm and adderall XR 30mg daily.Will request refill from Dr Mcnally. Tobacco OrthoScan cessation education 451274723 Z71.6 chewing tobacco, cutting down on this a little Hepatitis B non-immune 447455552 Z78.9 [id number] Will start series 10/30/24Nex t dose on 11/27/24Fin al dose on 04/29/2025 [id number] Akil Babin, DO [facility] [address] [place] [address] 11/27/2024 08:42:15 12/03/2024 16:51:19 Opioid dependence 55820215 F11.20 UDS today: sent to lab.UDS PRIOR:10/30 [...] mg/dPDMP reviewed: consistent Attention deficit hyperactivity disorder 439556651 F90.9 Doing well on Adderall 30mg at 2pm and adderall XR 30mg daily.Will request refill from Dr Mcnally. Tobacco OrthoScan cessation education 529179047 Z71.6 chewing tobacco, cutting down on this a little Hepatitis B non-immune 126160123 Z78.9 [id number] Series started 10/30/24Sec ond dose today on 11/27/24Fin al dose on 04/29/2025 [id number] Austin [facility] [address] [facility],[address] [place] [address] 11/27/2024 09:21:51 12/05/2024 09:51:44 [id number] Akil Babin, DO [facility] [address] [place] [address] 12/25/2024 11:29:51 12/29/2024 13:35:02 Opioid dependence 73871846 F11.20 UDS today: sent to lab.UDS PRIOR:11/27 adderall, suboxone, seroquel, ETOHHe reports he feels good on current dose. instructed to take only as prescribed .Pt was frustrated that he has to be seen every month. 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 Discussed transferin g pt to Dr Mcnally to be able to do this in the future due to prescribin g limitation s for enrobing machine feeder in [place]. Pt states he does not want to change anything that it is fine and he does not mind to be seen every 4 weeks.Foll ow up in 4 weeks in clinic, then can try to do virtual visits for a couple months with in clinic every 3 months.Con lyudmila counsellin g as desired.Ke ep follow ups with specialist (s).Rafael brown dose of buprenorph ine is: 24 mg/dPDMP reviewed: consistent Attention deficit hyperactivity disorder 548748491 F90.9 Doing well on Adderall 30mg at 2pm and adderall XR 30mg daily.UDS has been consistent ly positive for 4 monthsWill request refill from Dr Mcnally. Tobacco us e cessation education [id number] Z71.6 chewing tobacco, cutting down on this a little Adult [place] th examination 891030149 Z00.00 [id number] General Wellness:H IV test (- ) on [...] syl sung physician: Septembernnual labs [id number] Akil Babin, DO [facility] [address] [place] [address] 01/22/2025 13:26:31 01/26/2025 11:25:42 Opioid dependence 95085711 F11.20 UDS today: deferred due to virtual [...] months. Next in clinic is February.Angel coreas counsellin g as desired.Alex ep follow ups with specialist (s).Rafael brown dose of buprenorph ine is: 24 mg/dPDMP reviewed: consistent Attention deficit hyperactivity disorder 478178428 F90.9 Pt sent a message that he [...] for ADHD. Tobacco us e cessation education 631730878 Z71.6 chewing tobacco, cutting down on this a little [id number] Akil Babin, DO [facility] [address] [place] [address] 02/19/2025 09:23:22 02/23/2025 09:32:34 Opioid dependence 64666888 F11.20 UDS today: deferred due to virtual [...] Next in clinic is February.Angel coreas counseljorge farias as desired.Ke ep follow ups with specialist (s).Curren t dose of buprenorph ine is: 24 mg/dPDMP reviewed: consistent Attention deficit hyperactivity disorder 359591690 F90.9 Prior UDS: 5 Adderall, bup, norbup, naloxone, quetiapine , ETOHHe states he thinks the dose is good.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 Will consult Dr Mcnally for Rx for ADHD. Tobacco us e cessation education 576615296 Z71.6 chewing tobacco, cutting down on this a little [id number] Akil Babin, DO [facility] [address] [place] [address] 02/26/2025 08:40:11 03/02/2025 09:24:25 Opioid dependence 80919648 F11.20 UDS today: sent to labUDS prior:11/27 Adderall, bup, norbup, naloxone, quetiapine , ETOHNo complaints or issues in recovery.F ollow up in 4 weeks in clinic, then can try to do virtual visits for a couple months with in clinic every 3 months. Next in clinic is April for last engerix shot.Ilay farias as desired.Ke ep follow ups with specialist (s).Curren t dose of buprenorph ine is: 24 mg/dPDMP reviewed: consistent Attention deficit hyperactivity disorder 008250811 F90.9 Prior UDS: 5 Adderall, bup, norbup, [...] for ADHD. Tobacco us e cessation education 300260821 Z71.6 chewing tobacco, cutting down on this a little Essential hypertension 58394515 I10 BP up today, he has not been taking his BP medication , lisinopril Reports home BP has been 142/79 usually just 2-3 numbers over normal Has been out of BP medication Hornet stings yesterday around 630pmDid not sleep well last night. Hornet sting [id number] T 63.451A [id number] Hornet sting yesterday at 630pmHe has removed stinger last night with credit card scrapeLeft eye swollen.Pa inful and bothersome and feels like it is still swelling.H e has used ice to help the swelling. [id number] Akil Babin, [facility] [address] [place] [address] 03/11/2025 11:50:52 03/11/2025 15:52:49 Opioid dependence 29335295 F11.20 Current UDS: none d/t phone visitPrior UDS: bup/norbup , amp,PDMP with our fills only Has upcoming appointmen t with Sofie [place] POLYSOMNOGRAPHIC TECH Attention deficit hyperactivity disorder 158073503 F90.9 ADHD plays a part in his [...] day- add a mood stabilizer or other [id number] daily I feel like would be the maxSuggest ed genesight at next visit with Sofie Patient okay with XR BID and genesight at future visit Has f/u visit with Sofie on 03/26 Will go ahead and send in his Adderall that will be due next SundayWill get rid of the IR dose and change to XR twice daily Essential hypertension 16387661 I10 [id number] Akil Babin, [facility] [address] [place] [address] 03/26/2025 09:04:31 03/30/2025 08:33:16 Opioid dependence 85918187 F11.20 UDS today: deferred due to virtual [...] mg/dPDMP reviewed: consistent Attention deficit hyperactivity disorder 206974807 F90.9 Taking Adderall XR 30mg BID states this is doing great.Next refill due 04/17/25Wi ll adjust suboxone Rx and follow up so 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 Tobacco us e cessation education 321154646 Z71.6 chewing tobacco, cutting down on this a little Requires vaccination 724 251520 Z23 012679 Engerix final dose due in April, will give next visit. Diet education 24877301 Z71.3 Healthy diet recommende d with increased green vegetables (50% of plate) Exercises education, guidance, and counseling 049859332 Z71.82 Recommend exercise of at least 150 minutes per week, 10 minutes minimum uninterrup giancarlo. Body mass index 30+ - obesity 127941907 Z68.31 043349 BMI 31.4 [id number] Akil Babin DO [facility] [address] [place] [address] 04/16/2025 09:24:21 04/16/2025 17:26:59 Opioid dependence 80645219 F11.20 UDS today: deferred due to virtual [...] mg/dPDMP reviewed: consistent Attention deficit hyperactivity disorder 545215149 F90.9 Taking Adderall XR 30mg BID states this is doing great.Next refill due 04/17/25 Tobacco us e cessation education 804959308 Z71.6 chewing tobacco, cutting down on this a little Requires vaccination 723 438628 Z23 308901 Engerix final dose due in April, will give next visit. Essential hypertension 78892556 I10 16286 Riding bicycle to help lose some weight.Erna e BP cuff has quit working. Diet education 84856330 Z71.3 Healthy diet recommende d with increased green vegetables (50% of plate) Exercises education, guidance, and counseling 078857094 Z71.82 Recommend exercise of at least 150 minutes per week, 10 minutes minimum uninterrup giancarlo. Body mass index 30+ - obesity 157954115 E66.9 3101207 BMI 30.2 [id number] Akil Babin [facility] [address] [place] [address] 04/23/2025 11:48:54 04/23/2025 14:26:34 Opioid dependence 06666562 F11.20 UDS today: sent to labUDS prior: 02/26/25 Adderall, bup, norbup, naloxone, quetiapine doing great in recovery.F ollow up in 4 weeks virtual visits with in clinic every 3 months. Next in clinic is April for last engerix shot.Ilya hamlin g as desired.Alex ep follow ups with specialist (s).Rafael brown dose of buprenorph ine is: 24 mg/dPDMP reviewed: consistent Attention deficit hyperactivity disorder 310407183 F90.9 Taking Adderall XR 30mg BID states this is doing great. Tobacco us e cessation education 118469988 Z71.6 chewing tobacco, cutting down on this a little Requires vaccination 723 633251 Z23 536833 Engerix final dose due in April, will give next visit. Essential hypertension 76337772 I10 32556 was taking lisinopril PRN Discu ssed this is a daily. Diet education 07084467 Z71.3 Healthy diet recommende d with increased green vegetables (50% of plate) Exercises education, guidance, and counseling 619979808 Z71.82 Recommend exercise of at least 150 minutes per week, 10 minutes minimum uninterrup giancarlo. Body mass index 30+ - obesity 574708557 E66.9 8294177 BMI 30.2 Health Concerns Section Related Observation LastModified by Organization Detai ls LastModified Time None Recorded Concern Status LastModified by Organization Details LastModified Time None Recorded Advance Directives Directive N: Payers Insurance Date Sequence Insurance Name Policy Number Policy Sheikh Covered Member ID Sheikh Member ID Guarantor Name 04/03/2024 1 *SELF PAY* Napoleon Villafuerte Herrold 04/16/2025 1 [place] Kyle Villafuerte Herrold [id number] Kyle Villafuerte Herrolgertrudis Notes Date Note Type Note Provider Name and Address Organization Details Recorded Time 02/26/2025 text/html Here for MAT follow up states he feels well and is strong in opioid recovery.He states he thinks his ADHD medication needs to be increased again.He feels irritable at night. Thinks it is wearing off and he feels irritable since he cannot focus. Akil Babin DO [address], [address], [facility] 03/02/2025 00:02:05 03/11/2025 text/html ADHD f/u phone visit Akil Babin DO [address], [address], [facility] 03/11/2025 15:35:07 03/26/2025 text/html MAT follow upHe states he is doing great.. States Dr Mcnally and he got the dose straightened out on the Adderrall. feels like this is a good dose now.He feels good in opioid recovery with no complaints. MARILEE HOUSTON, POLYSOMNOGRAPHIC TECH [address], [address], [facility] 03/26/2025 19:12:55 04/16/2025 text/html MAT follow up [...] doing really great right now. KENDY COOK, [address], [address], [facility] 04/16/2025 21:26:43 04/23/2025 text/html MAT and ADHD follow upSTates he feels great on current dose of suboxone and adderall.No struggles in recovery.He is due for last HBV immunizationHe is riding a bike for exercise. LITZY CRUZ, [address], [address], [facility] 04/23/2025 22:32:15
[2025-05-06 21:35] VITALS: BP 154/111; PULSE 137; O2SAT 91
--- NOTE | 2025-05-06 21:39 | W.ED.SEIZURE ---
HPI - Seizure General: Chief Complaint: Seizure Stated Complaint: possible seizures Time Seen by Provider: 05/06/25 21:15 History of Present Illness: HPI Narrative: Patient is a 44-year-old gentleman that presents to the emergency room due to seizure. Patient stated he had an aura that he was going to have a seizure, looked for his medication, finally found his Keppra 750 mg, and took it just prior to having a seizure. He stated he fell back on a cardboard box, and contused his right shoulder. He believes he bit the back left side of his tongue. His mom rolled him to the side. He ultimately brought the ambulance here for evaluation. He called 911. EMS noted he was postictal on arrival. Postictal period Is unknown how long. No incontinence of urine. Seizure History: Yes Associated symptoms: Deny chest pain, chills or fever(s) Related Data Home Medications ?Medication ?Instructions ?Recorded ?Confirmed buprenorphine 8 mg-naloxone 2 mg 1.5 tab sublingual BID 12/05/24 04/27/25 sublingual tablet Previous Rx's ?Medication ?Instructions ?Recorded quetiapine 300 mg tablet 600 mg (2 x 300 mg) PO BEDTIME 30 04/29/25 days #60 tabs levetiracetam 750 mg tablet 750 mg PO Q12H #60 tabs 05/06/25 (Keppra) Allergies Allergy/AdvReac Type Severity Reaction Status Date / Time codeine Allergy Unknown Verified 02/20/24 20:01 ketorolac (From Toradol) Allergy ALGY-Hives Verified 02/20/24 20:01 lidocaine Allergy ALGY-Hives Verified 02/20/24 20:01 tramadol Allergy ADR-Seizure Verified 05/06/25 21:16 Review of Systems General: Reports: 10 or more systems reviewed and unremarkable except in HPI and below Const: Denies: fever(s) or chills Eyes: Denies: change in vision or blurry vision ENMT: Reports: other (Mild back left tongue bite.); Denies: throat pain or nasal obstruction Card: Denies: chest pain or palpitations Resp: Denies: dyspnea, productive cough or non-productive cough GI: Denies: abdominal pain, nausea or vomiting : Denies: flank pain or difficulty urinating Musc: Denies: neck pain or back pain Skin/Breast: Denies: rash or pruritus Neuro: Denies: headache(s), numbness in extremities or weakness in extremities Psych: Denies: anxiety or depression PFSH ED PFSH: Medical History (Updated 05/06/25 @ 21:51 by RASHAD Narvaez) Hepatitis Chronic back pain Depression Substance abuse Suicide attempt Intermittent explosive disorder Anxiety PTSD (post-traumatic stress disorder) Bipolar disorder Seizure disorder Suicidal ideation Alcoholism Rectal bleed IBS (irritable bowel syndrome) GI bleed Surgical History History of back surgery Social History Smoking and tobacco/nicotine status: current every day tobacco/nicotine user smokeless tobacco Smokeless tobacco user: snuff Smokeless tobacco details: 1 can/2 weeks Quit status (tobacco/nicotine): not considering quitting Second hand smoke exposure: No Current gender identity: Male Physical Exam Const: COMMON NORMALS: no acute distress, average body habitus, patient oriented x3, no limitations, healthy appearing, alert and well nourished GENERAL APPEARANCE: cooperative and comfortable HENMT: COMMON NORMALS: normocephalic and atraumatic HEAD & SCALP: normocephalic and atraumatic OTHER: No lesion to tongue noted. Lymph: LYMPHATIC: no lymphadenopathy noted Chest: COMMONS NORMALS: normal inspection of the chest and normal palpation of entire chest wall Resp: COMMON NORMALS: normal respiratory effort, No retractions and clear to auscultation bilaterally AUSCULTATION: clear to auscultation bilaterally Cardio: COMMON NORMALS: regular rate and regular rhythm RATE: regular rate RHYTHM: regular rhythm GI: COMMON NORMALS: Normal to inspection, nondistended, normoactive bowel sounds present, Soft to palpation, non-tender and No hepatosplenomegaly present PALPATION: Yes Soft to palpation and Yes No hepatosplenomegaly present : COMMON NORMALS: Yes no CVA tenderness BLADDER/KIDNEY EXAM: Yes no CVA tenderness Back/Pelvis: COMMON NORMALS: no CVA tenderness Extremity: NARRATIVE EXTREMITY EXAM: Empty can test negative anterior and lateral. Full range of motion strength intact to right shoulder. Capillary refill intact. No edema. Neuro: COMMON NORMALS: patient oriented x3 SENSORIUM/ORIENTATION: Yes alert Course Vital Signs: Vital signs: Vital Signs Temperature 98.2 F 10/29/25 21:14 Pulse Rate 128 H 05/06/25 21:14 Respiratory Rate 18 05/06/25 21:14 Blood Pressure 154/105 05/06/25 21:14 Pulse Oximetry 99 05/06/25 21:14 Oxygen Delivery Me thod Room Air 05/06/25 21:14 MDM - Seizure MDM Narrative Medical decision making narrative: 44-year-old gentleman with history of epilepsy. Last fill of Keppra 750 mg was 06/2024, by ER physician. Patient assures me he has a primary care physician that we will fill his medications. Will obtain routine labs for further information. During my interview, patient asked for his Suboxone, and Adderall to be given here as it is due at home. I have discussed with patient this is a scheduled medication, and we do not give these out of the ER routinely. He is allowed to take his own since he is awake, alert, and oriented. He does not have his medication with him. Apparently, patient eloped/left AGAINST MEDICAL ADVICE without signing. He left on the pretense he needed to give his mother his credit card. Labs were unable to be obtained. I already sent his Keppra to the pharmacy. No radiology studies performed this visit Discharge Plan Discharge Patient Disposition: Left Against Medical Advice Clinical Impression: Epileptic seizure Condition: Stable Prescriptions: New levetiracetam [Keppra] 750 mg tablet 750 mg PO Q12H Qty: 60 0RF No Action quetiapine 300 mg Tablet 600 mg PO BEDTIME 30 Days Qty: 60 1RF buprenorphine-naloxone 8-2 mg tablet, sublingual 1.5 tab SUBLINGUAL BID Referrals: Akil Ordoñez [Primary Care Provider, Family Practice] Discharge Diet: Usual diet Discharge Activity: Limit activity as instructed Patient Instructions: Epilepsy (ED) Activity Restrictions/Additional Instructions: - Per [place] state law: No driving, no bathing alone, no swimming alone, no contact sports or operating heavy equipment x 6 months for breakthrough seizure. - You will need to be cleared by your doctor for further seizure precaution release. - Take your medication as prescribed. Please obtain a refill from your primary care physician. Print Language: Faroese Coding Level of Care Code ED Manual Training Teacher for Edmond Hwang
== END 2025-05-06 21:45 | disposition left against medical advice (07) ==
PROVIDERS: Emergency Provider Physician Assistant; PCP Family Medicine
DX: G40.909 Epilepsy, unspecified, not intractable, without status epilepticus (principal); F17.220 Nicotine dependence, chewing tobacco, uncomplicated
CPT/HCPCS: 99283